=== PATIENT | female | born 1930 | race Caucasian/White ===

== ENCOUNTER → 2018-07-28 | Outpatient (CLI) | payer MEDICARE | LOC: WOUNDCARE 09:14 | PROVIDERS: ATTEND Surgery | DX: I70.242 Atherosclerosis of native arteries of left leg with ulceration of calf (principal); I87.332 Chronic venous hypertension (idiopathic) with ulcer and inflammation of left lower extremity; L97.222 Non-pressure chronic ulcer of left calf with fat layer exposed; I70.243 Atherosclerosis of native arteries of left leg with ulceration of ankle; L97.322 Non-pressure chronic ulcer of left ankle with fat layer exposed; I89.0 Lymphedema, not elsewhere classified | CPT/HCPCS: 99204 ==

== ENCOUNTER → 2018-07-28 | Outpatient (CLI) | payer MEDICARE ==
[2018-07-28 11:20] LABS: BASOPHILS % (AUTO) 0 % (0-10); EOSINOPHILS # (AUTO) 0.1 10^3/uL (0.0-0.3); EOSINOPHILS % (AUTO) 2 % (0-10); HEMATOCRIT 42 % (35-52); HEMOGLOBIN 13.4 G/DL (11.5-16.0); LYMPHOCYTES % (AUTO) 29 % (12-44); MEAN CORPUSCULAR HEMOGLOBIN 29 PG (25-34); MEAN CORPUSCULAR HGB CONC 32 G/DL (32-36); MEAN CORPUSCULAR VOLUME 92 FL (80-99); MEAN PLATELET VOLUME 9.5 FL (7.4-10.4); MONOCYTES # (AUTO) 0.6 X 10^3 (0.0-1.0); MONOCYTES % (AUTO) 9 % (0-12); NEUTROPHILS # (AUTO) 4.2 X 10^3 (1.8-7.8); NEUTROPHILS % (AUTO) 60 % (42-75); PLATELET COUNT 288 10^3/uL (130-400); RED CELL DISTRIBUTION WIDTH 13.7 % (10.0-14.5)
[2018-07-28 11:37] LABS: ALANINE AMINOTRANSFERASE 17 U/L (0-55); ALBUMIN 3.9 GM/DL (3.2-4.5); ALKALINE PHOSPHATASE 68 U/L (40-136); BILIRUBIN,TOTAL 0.7 MG/DL (0.1-1.0); BUN/CREATININE RATIO 19; CALCIUM 9.9 MG/DL (8.5-10.1); CARBON DIOXIDE 26 MMOL/L (21-32); CHLORIDE 107 MMOL/L (98-107); CREATININE SERUM 0.83 MG/DL (0.60-1.30); GFR ESTIMATED > 60; GLUCOSE 94 MG/DL (70-105); SODIUM 142 MMOL/L (135-145); TOTAL PROTEIN 7.5 GM/DL (6.4-8.2)
== END ==
LOC: LAB 11:06
PROVIDERS: ATTEND Surgery
DX: I70.242 Atherosclerosis of native arteries of left leg with ulceration of calf (principal); L97.222 Non-pressure chronic ulcer of left calf with fat layer exposed
CPT/HCPCS: 36415; 80053; 85025

== ENCOUNTER → 2018-08-01 | Outpatient (CLI) | payer MEDICARE | LOC: WOUNDCARE 14:09 | PROVIDERS: ATTEND Surgery | DX: L97.222 Non-pressure chronic ulcer of left calf with fat layer exposed (principal); L97.322 Non-pressure chronic ulcer of left ankle with fat layer exposed; I70.242 Atherosclerosis of native arteries of left leg with ulceration of calf; I70.243 Atherosclerosis of native arteries of left leg with ulceration of ankle; I87.332 Chronic venous hypertension (idiopathic) with ulcer and inflammation of left lower extremity; I87.321 Chronic venous hypertension (idiopathic) with inflammation of right lower extremity; I89.0 Lymphedema, not elsewhere classified | CPT/HCPCS: 11042; 87070; 87077; 87205 ==

== ENCOUNTER → 2018-08-11 | Outpatient (CLI) | payer MEDICARE | LOC: WOUNDCARE 10:04 | PROVIDERS: ATTEND Surgery | DX: L97.222 Non-pressure chronic ulcer of left calf with fat layer exposed (principal); I70.242 Atherosclerosis of native arteries of left leg with ulceration of calf; I87.332 Chronic venous hypertension (idiopathic) with ulcer and inflammation of left lower extremity; I87.321 Chronic venous hypertension (idiopathic) with inflammation of right lower extremity; I89.0 Lymphedema, not elsewhere classified | CPT/HCPCS: 11042 ==

== ENCOUNTER → 2018-08-18 | Outpatient (CLI) | payer MEDICARE | LOC: WOUNDCARE 10:01 | PROVIDERS: ATTEND Surgery | DX: L97.222 Non-pressure chronic ulcer of left calf with fat layer exposed (principal); I70.242 Atherosclerosis of native arteries of left leg with ulceration of calf; I87.332 Chronic venous hypertension (idiopathic) with ulcer and inflammation of left lower extremity; I87.321 Chronic venous hypertension (idiopathic) with inflammation of right lower extremity; I89.0 Lymphedema, not elsewhere classified | CPT/HCPCS: 11042 ==

== ENCOUNTER → 2018-08-25 | Outpatient (CLI) | payer MEDICARE | LOC: WOUNDCARE 09:53 | PROVIDERS: ATTEND Surgery | DX: L97.222 Non-pressure chronic ulcer of left calf with fat layer exposed (principal); I87.332 Chronic venous hypertension (idiopathic) with ulcer and inflammation of left lower extremity; I87.321 Chronic venous hypertension (idiopathic) with inflammation of right lower extremity; I89.0 Lymphedema, not elsewhere classified; I70.242 Atherosclerosis of native arteries of left leg with ulceration of calf | CPT/HCPCS: 11042 ==

== ENCOUNTER → 2018-09-01 | Outpatient (CLI) | payer MEDICARE | LOC: WOUNDCARE 09:57 | PROVIDERS: ATTEND Surgery | DX: L97.222 Non-pressure chronic ulcer of left calf with fat layer exposed (principal); I87.332 Chronic venous hypertension (idiopathic) with ulcer and inflammation of left lower extremity; I87.321 Chronic venous hypertension (idiopathic) with inflammation of right lower extremity; I89.0 Lymphedema, not elsewhere classified; I70.242 Atherosclerosis of native arteries of left leg with ulceration of calf | CPT/HCPCS: 99212 ==

== ENCOUNTER 2019-07-02 11:03 | Inpatient (IN) | payer MEDICARE ==
[~2019-07-02] VITALS: Ht 152.4 cm; Wt 90.1 kg
[2019-07-02] MEDS ORDERED: FLEET ENEMA ADULT 1 EA BTL PR PRN (12:15)
[2019-07-02] MEDS ORDERED: LACTULOSE SYRUP 10GM/15ML (ENULOSE) 30ML UDC PO PRN (12:15)
[2019-07-02] MEDS ORDERED: LOPERAMIDE 2 MG (IMODIUM) TABLET PO PRN (12:15)
[2019-07-02] MEDS ORDERED: BISACODYL 10 MG SUPP (DULCOLAX) PR PRN (12:15)
[2019-07-02] MEDS ORDERED: ALPRAZolam 0.25 MG (XANAX) TAB PO PRN (12:15)
[2019-07-02] MEDS ORDERED: diphenhydrAMINE 25 MG TAB (BENADRYL) PO PRN (12:15)
[2019-07-02] MEDS ORDERED: guaiFENesin/CODEINE (ROBITUSSIN AC) 10ML UDC PO PRN (12:15)
[2019-07-02] MEDS ORDERED: CALCIUM CARBONATE 500 MG (TUMS) TAB.CHEW PO PRN (12:15)
[2019-07-02] MEDS ORDERED: ONDANSETRON 4 MG (ZOFRAN) ORAL DISSOLVE TAB PO PRN (12:15)
[2019-07-02] MEDS ORDERED: DOCUSATE SODIUM 100 MG (COLACE) CAP PO PRN (12:15)
[2019-07-02] MEDS ORDERED: ACETAMINOPHEN 500 MG TAB (TYLENOL) PO PRN (12:15)
[2019-07-02] MEDS ORDERED: MELATONIN 3 MG TABLET PO PRN (12:15)
--- NOTE | 2019-07-02 13:36 | Physical Therapy Evaluation ---
PT Evaluation-General Medical Diagnosis Admission Date 07/02/2019 Medical Diagnosis: sepsis Onset Date: Jul 02, 2019 Therapy Diagnosis Therapy Diagnosis: abnormal gait/weakness Precautions Precautions/Isolations: Standard Precautions Referral Physician: Sonido Reason for Referral: Evaluation/Treatment Medical History Pertinent Medical History: CAD, HTN Additional Medical History CHF [facility]TI and mycoplasma. Transferred to this unit for continued medical management and skilled therapy services. Reviewed History: Yes Social History Home: Single Level Current Living Status: Alone Entry Into Home: Stairs With Railing PT Steps Into Home: 5 Prior Prior Level of Function SCALE: Activities may be completed with or without assistive devices. 7-Xystexchzs-fvenjcs completes the activity by him/herself with no assistance from a helper. 5-Set-up or Clean-up Assistance-helper sets up or cleans up; patient completes activity. [place] assists only prior to or following the activity. 4-Supervision or Touching Assistance-helper provides verbal cues and/or touching/steadying and/or contact guard assistance as patient completes activity. Assistance may be provided throughout the activity or intermittently. 3-Partial/Moderate Assistance-helper does LESS THAN HALF the effort. [place] lifts, holds or supports trunk or limbs, but provides less than half the effort. 2-Substantial/Maximal Assistance-helper does MORE THAN HALF the effort. [place] lifts or holds trunk or limbs and provides more than half the effort. 5-Ftehllvzy-ttsiox does ALL the effort. Patient does none of the effort to complete the activity. Or, the assistance of 2 or more helpers is required for the patient to complete the activity. If activity was not attempted, code reason: 7-Patient Refused. 9-Not Applicable-not attempted and the patient did not perform the activity before the current illness, exacerbation or injury. 10-Not Attempted due to Environmental Limitations-(lack of equipment, weather restraints, etc.). 88-Not Attempted due to Medical Conditions or Safety Concerns. Bed Mobility: 6 Transfers (B,C,W/C): 6 Gait: 6 Stairs: 5 Indoor Mobility (Ambulation): Independent Stairs: Independent Prior Devices Use: Walker (4WW) Pt lives alone and able to care for herself. ABle to walk distances to perform grocery shopping. PT Evaluation-Current Subjective Agrees to PT. Reports she is anxious to do what she is supposed to do to get better. Pain Numeric Pain Scale: 0-No Pain Location: No Pain Reported Pt/Family Goals Return home alone as before. Objective Patient Orientation: Person, Place, Time, Situation ROM/Strength ROM Lower Extremities WFL Strength Lower Extremities B LE strength is grossly 4/5 throughout Integumentary/Posture Integumentary refer to nursing notes. Bowel Incontinence: Yes Bladder Incontinence: Yes Posture rounded shoulders and forward head; forward flexed in standing. Neuromuscular (Tone, Coordination, Reflexes) tone is WNL; coordination intact; reflexes intact Sensory Vision: Functional Hearing: Functional Sensation Right Upper Extremit: Intact Sensation Right Lower Extremit: Intact Sensation Left Lower Extremity: Intact Transfers Roll Left to Right (QC): 3 (min assist to initiate and use of bedrail) Sit to Lying (QC): 2 (assist with both legs to get into bed. ) Lying to Sitting/Side of Bed(Q: 3 (min assist with cues for safety and sequencing.) Sit to Stand (QC): 2 (max assist to come to a stand with cues for hand placement and sequencing ) Chair/Mtb-tv-Ezopb Xfer(QC): 3 (min assist for balance. ) Toilet Transfer: 2 (mod assist and use of grab bar. ) Car Transfer (QC): 3 (min assist to get in/out and cues for sequencing) Gait Does the Patient Walk?: Yes Mode of Locomotion: Walk Anticipated Mode of Locomotion: Walk Walk 10 feet (QC): 3 (min assist for balance and safety) Walk 50 ft with 2 Turns(QC): 3 (min assist for balance and safety) Walk 150 ft (QC): 88 Walking 10ft/uneven surface-QC: 3 (min assist for balance) Gait Assistive Device: FWW Comments/Gait Description longstanding foot drop right foot; uses an AFO; decreased step length and velocity. Wheelchair Training Does the Pt Use a Wheelchair?: No Stairs 1 Step (curb) (QC): 3 (min assist to step up) 4 Steps (QC): 88 12 Steps (QC): 88 Walking Assistive Device: Walker Balance Sitting Static: Fair Sitting Dynamic: Fair Standing Static: Fair Standing Dynamic: Fair Picking up an Object (QC): 88 Treatment Co treat with OT [id number]: skill of 2 clinicians indicated due to the complexity of the patient and need for skill of OT and PT together to complete task. Pt performed bathing, dressing, toileting (2 times) and self care tasks: OT addressed use of UE and completing task as PT addressed mutliple sit to stand transfers with cues for sequencing and hand placement as well safety cues and assist to complete transfers; PT provided assist for functional balance and safety in standing as she performed self care as well as with transitional movements; pt sat EOB for part of sponge bath and PT provided cues fo trunk control and stability. Pt transferred from bed, chair, wc and toilet throughout treatment. Static and dynamic standing activities performed as well with min assist for balance. Pt in recliner with needs met post treatment. After pt stood at sink to brush her teeth and upon sitting down to rest, her oxygen sats were found to be 83%; recovered to above 90% within 1 minute with cues for deep breathing. Oxygen at 2 l/min in situ throughout treatment. Pt did become SOA with activity that required much reaching and bending; able to recover with cues for breathing technique and rest. Assessment/Needs Post acute hospital stay due to sepsis and presents with decreased functional strength and balance as well as decreased functional activity tolerance. She will benefit from skilled PT to address these deficits to allow her to return home alone at a mod indep level of mobility. She improved with transfer abiltiy and sequencing as the treatment progressed. Pt is motivated and has good family support. Rehab Potential: Good PT Short Term Goals Short Term Goals Time Frame: Jul 09, 2019 Sit to lyin Lying to sitting on side of be: 4 Sit to stand: 4 Walk 150 feet: 4 PT Long-Term Goals Computer Network Support Specialist Goals PT Long-Term Goals Time Frame: Jul 17, 2019 Roll Left & Right (QC): 6 Sit to Lying (QC): 6 Lying-Sitting on Side/Bed(QC): 6 Sit to Stand (QC): 6 Chair/Uhr-pj-Yiqly Xfer(QC): 6 Toilet Transfer (QC): 6 Car Transfer (QC): 5 Does the Patient Walk: Yes Walk 10 feet (QC): 6 Walk 50ft with 2 Turns (QC): 6 Walk 150 ft (QC): 6 Walking 10ft on Uneven Surface: 5 1 Step (curb) (QC): 5 4 Steps (QC): 4 12 Steps (QC): 9 Picking up an Object (QC): 4 Does the Pt use WC or Scooter?: No PT Plan Problem List Problem List: Activity Tolerance, Functional Strength, Safety, Balance, Gait, Transfer, Bed Mobility Treatment/Plan Treatment Plan: Continue Plan of Care Treatment Plan: Bed Mobility, Education, Functional Activity Chrissy, Functional Strength, Group Therapy, Gait, Safety, Therapeutic Exercise, Transfers Treatment Duration: Jul 17, 2019 Frequency: Modified Program (IRF) Estimated Hrs Per Day: 1 hour per day (to 1.5 hrs/day) Patient and/or Family Agrees t: Yes Safety Risks/Education Patient Education: Transfer Techniques, Safety Issues Teaching Recipient: Patient Teaching Methods: Demonstration, Discussion Response to Teaching: Reinforcement Needed Time/GCodes Time In: 1400 Time Out: 1410 Total Billed Treatment Time: 10 (1744-1650 co treat with OT) Total Billed Treatment visit x 2 EVM 10 FA 45 NM 25 FLORENCIO HAMM PT Jul 02, 2019 13:36
--- NOTE | 2019-07-02 14:00 | NUR ---
Yanet Chencho admitted to room 229-1, with an admitting diagnosis of Pneumonia, on 07/02/19 from [facility] via private vehicle, accompanied by family.YANET DIXON introduced to surroundings, call light, bed controls, phone, TV, temperature control, lights, meal times, smoking policy, visitor policy, side rail policy, bathrooms and showers. Patient Rights given to patient in the handbook.YANET DIXON verbalizes understanding that [facility] is not responsible for the loss or damage to any personal effects or valuables that are kept in the patients possession during their hospitalization. The following Patient Care Plans were discussed with the patient and family: Discharge Planning, Impaired mobility, and Pneumonia. YANET DIXON verbalizes understanding of Interdisciplinary Patient Education.
[2019-07-02] MEDS ORDERED: ASPI81TA16 PO (15:25)
[2019-07-02] MEDS ORDERED: CALC-694 PO (15:25)
[2019-07-02] MEDS ORDERED: LOSA100T57 PO (15:28)
[2019-07-02] MEDS ORDERED: TIMO5DRO31 OU (15:28)
[2019-07-02] MEDS ORDERED: OXYB5TAB3 PO (15:28)
[2019-07-02] MEDS ORDERED: FURO-124 PO (15:28)
[2019-07-02] MEDS ORDERED: LATA2.5D5 OU (15:28)
[2019-07-02] MEDS ORDERED: MULT1TAB63 PO (15:28)
[2019-07-02] MEDS ORDERED: POTA10TA PO (15:28)
--- NOTE | 2019-07-02 15:29 | NUR ---
ENTERED [facility] REC USING THE DISCHARGE INSTRUCTIONS FROM [facility]. AFTER I SPEAK WITH THE PT I WILL UPDATE THE [facility] REC AND NOTE NEEDED Addendum: 07/03/19 at 1516 by RANDY CHENEY [facility] POKE WITH THE PT, WENT THRU [facility] MED HISTORY ,CALLED [facility] MAIL ORDER AND CALLED HER EYE DR TO COMPLETE THE MED REC. THE DISCHARGE ORDER FROM [facility] ARE TO START: FUROSEMIDE 40MG 1 DAILY POTASSIUM 10 MEQ: 1 DAILY PER DISCHARGE SHE IS TO STOP: BYSTOLIC 5MG 1 DAILY TIMOLOL: THIS WAS ON THE DISCHARGE TO CONTINUE USE AND THE PT SAID SHE DOES USE THIS EYE DROP. HOWEVER WHEN I CHECKED WITH [facility] THEY HAD NOT FILLED THIS MEDICATION FOR AT LEAST 6 MONTHS. I THEM REACHED OUT TO DR. REA MCDANIEL TO SEE IF SAMPLES COULD EXPLAIN THIS LAPSE IN FILLING- UNFORTUNATELY THEY DID NOT HAVE SAMPLES OF THIS MEDICATION. DUE TO THIS I HAVE LEFT THIS OFF THE FINAL MED REC ESTRACE 0.5MG TAKE 1 TAB TWICE WEEKLY (MON AND FRI) HOWEVER THIS IS NOT LISTED ON THE DISCHARGE ORDERS. I DID INCLUDE THIS IN THE FINAL MED REC AND I HAVE REACHED OUT TO [facility] FOR CLARIFICATION. OXYBUTYNIN ER: DISCHARGE SAYS TO TAKE OXYBUTYNIN ER 5MG- AND THE NEXT LINE SAYS 10MG /ORAL/ONCE A DAY. SHE PREVIOUSLY WAS ON THE 10MG BUT I DID PUT ON THE FIRST MED REC THE OXYBUTYNIN ER 5MG NOT REALIZING THE DISCREPANCY. I HAVE PUT IN A CALL THE [facility] TO FIND OUT WHICH STRENGTH THEY WANTED TO DISCHARGE HER WITH AND WHEN I HEAR FROM THEM I WILL UPDATE MED REC/NOTES NEEDED. SPOKE WITH TOM AT [facility]- THEY ONLY USE THE 5MG BC 10MG IS NOT STOCKED THERE BUT SHE WAS GETTING 2 TABS TO EQUAL HER DOSE. I ALSO ASKED ABOUT THE ESTRACE THAT WAS NOT LISTED ON THE DISCHARGE- SHE DID NOT SEE ANY NOTE OF IT ON HER ADMIT FORMS. I WILL KEEP IT ON THE MED REC AT THIS TIME
--- NOTE | 2019-07-02 15:34 | Occupational Therapy Eval ---
OT Evaluation-General/PLF Medical Diagnosis Admission Date Jul 02, 2019 at 13:58 Medical Diagnosis: sepsis Onset Date: Jul 02, 2019 Therapy Diagnosis Therapy Diagnosis: Decreased ADL status Precautions Precautions/Isolations: Standard Precautions Weight Bear Status Weight Bearing Restriction: Weight Bearing/Tolerated Referral Physician: Sonido Referral Reason: Activity Tolerance, Self Care, Evaluation/Treatment, Strengthening/ROM Medical History Pertinent Medical History: CAD, HTN Additional Medical History see nursing. Current History Pt prepared for ulnar nerve decompression surgery, blood work was drawn with UTI/ sepsis dx. Pt hospitalized in [place] and transports to [facility] on 07/02/19 Reviewed History: Yes Social History Home: Single Level Current Living Status: Alone Entry Into Home: Stairs With Railing Steps Into Home: 5 ADL-Prior Level of Function SCALE: Activities may be completed with or without assistive devices. 2-Iaoxwxfbuh-qoywrad completes the activity by him/herself with no assistance from a helper. 5-Set-up or Clean-up Assistance-helper sets up or cleans up; patient completes activity. [place] assists only prior to or following the activity. 4-Supervision or Touching Assistance-helper provides verbal cues and/or touching/steadying and/or contact guard assistance as patient completes activity. Assistance may be provided throughout the activity or intermittently. 3-Partial/Moderate Assistance-helper does LESS THAN HALF the effort. [place] lifts, holds or supports trunk or limbs, but provides less than half the effort. 2-Substantial/Maximal Assistance-helper does MORE THAN HALF the effort. [place] lifts or holds trunk or limbs and provides more than half the effort. 5-Wsivadjut-ninyuq does ALL the effort. Patient does none of the effort to complete the activity. Or, the assistance of 2 or more helpers is required for the patient to complete the activity. If activity was not attempted, code reason: 7-Patient Refused. 9-Not Applicable-not attempted and the patient did not perform the activity before the current illness, exacerbation or injury. 10-Not Attempted due to Environmental Limitations-(lack of equipment, weather restraints, etc.). 88-Not Attempted due to Medical Conditions or Safety Concerns. ADL PLOF Comments Pt was Mod I with FWW within the house with ADLs, requires assist with driving for IADLs. Self Care: Independent Functional Cognition: Independent DME/Equipment: Grab Bars, Tall Toilet, Tub/Shower DME/Equipment Comments Pt has tub/ shower, grab bars, high rise toilet, FWW, [address] Self: No OT Current Status Subjective Pt transported by private vehicle from [place], pt seen at front of [facility]. Pt denies pain, 02 attached, daughter and daughter in law present start and end of session. OT individual eval: 1, EVM (10) OT/ PT co-treat: 1, ADL 5 (70) OT/ PT co-treat rendered due to pt's decreased strength and requirement for assist in transfers, pt's decreased balance, pt's requirement for 02 sat monitoring which would benefit from the utilization of 2 skilled therapists with in session to maintain safety. Mental Status/Objective Patient Orientation: Person, Place, Situation, Normal For Age Attachments: Oxygen (2L) Current Glasses/Contacts: Yes Hearing Aids: No Dentures/Partials: Yes (partial) Hand Dominance: Right Upper Extremity ROM WFL BUE Upper Extremity Coordination WFL BUE Upper Extremity Sensation numbness/ tingling of ulnar distribution of L hand. Upper Extremity Strength Decreased bilaterally Edema: BLE pitting ADL-Treatment Eating (QC): 6 Oral Hygiene (QC): 4 (SBA with walker at sink.) Shower/Bathe Self (QC): 4 (CGA, min A bottom thoroughness.) Upper Body Dressing (QC): 4 (min A bra hooking s/u shirt.cues for 02 disuse during changing.) Lower Body Dressing (QC): 2 (Max A threading BLE and CGA during stance to ladle puller hips.) On/Off Footwear (QC): 4 (SBA, pt brings feet over knees to don) Toileting Hygiene (QC): 4 (CGA- min A for thoroughness.) Other Treatments Pt completes transfer from car to w/c with min A and use of 2WW. pt brought to ARU floor. Pt educated on OT role/ plans of day/ goals of therapy/ ARU expectations. Pt and family educated. OT evaluation completed: [id number]. (10) Pt agreeable to OT/ PT co-treat from [id number] (70). Pt completes bed mob with CGA, unable to maintain supine position due to pain in back. Pt states she sleeps in recliner with legs elevated above heart. Pt states edema decreases within night and if need to utilize AFO on RLE pt must don within the morning. Pt completes bed mob, utilizes toilet with mod A for transfers (pt has some incontinence), and agrees to sponge bath. Completes 1/2 bath EOB (decreased energy, SOB noted, pt leans to R side during exhaustion). Pt transfers to chair with CGA to complete bath. Pt completes, while leaning down for pant donning pt's face red, SOB noted. Pt completes toileting once more (pt states was given IV lasix at [place] for swelling), min A transfer with commode placed on toilet. Pt stands for ~5 min at sink to complete oral hygiene (SBA-CGA), requires rest break in chair post-hygiene. Pt returns to recliner chair, 83% 02 noted with 2L 02 cannula on. Pt requires cues for nose breathing. Pt and family's questions answered, all needs met, pt educated superintendent container terminal light, call light in reach. Pt left in recliner chair with family present. Education OT Patient Education: Correct positioning, Energy conservation, Instructions to caregiver, Modified ADL techniques, Purpose of tx/functional activities, Rehab process, Transfer techniques Teaching Recipient: Patient Teaching Methods: Demonstration, Discussion Response to Teaching: Verbalize Understanding, Return Demonstration, Reinforcement Needed OT Short Term Goals Short Term Goals Upper body dressin Lower body dressin OT Senior Game Designer Goals Senior Game Designer Goals Time Frame: Jul 16, 2019 Eating (QC): 6 Oral Hygiene (QC): 6 Toileting Hygiene (QC): 6 Shower/Bathe Self (QC): 6 Upper Body Dressing (QC): 6 Lower Body Dressing (QC): 6 On/Off Footwear (QC): 6 Additional Goals: 1-Demonstrate ADL Tasks, 2-Verbalize Understanding, 3- ImproveStrength/Chrissy 1=Demonstrate adherence to instructed precautions during ADL tasks. 2=Patient will verbalize/demonstrate understanding of assistive devices/modifications for ADL. 3=Patient will improve strength/tolerance for activity to enable patient to perform ADL's. OT Education/Plan Problem List/Assessment Assessment: Decreased Activ Tolerance, Decreased UE Strength, Dependent Transfers, Edema, Impaired Funct Balance, Impaired I ADL's, Impaired Self-Care Skills Discharge Recommendations Plan/Recommendations: Continue POC Treatment Plan/Plan of Care Treatment,Training & Education: Yes Patient would benefit from OT for education, treatment and training to promote independence in ADL's, mobility, safety and/or upper extremity function for A DL's. Plan of Care: ADL Retraining, Caregiver Training, Concurrent Therapy, Functional Mobility, Group Exercise/Act as Ind, UE Funct Exercise/Act Treatment Duration: Jul 16, 2019 Frequency: At least 5 of 7 days/Wk (IRF) Estimated Hrs Per Day: 1.5 hours per day Agreement: Yes Rehab Potential: Good Time/GCodes Start Time: 14:10 Stop Time: 15:30 Total Time Billed (hr/min): 80 Billed Treatment Time OT individual eval: 1, EVM (10) OT/ PT co-treat: 1, ADL 5 (70) OT/ PT co-treat rendered due to pt's decreased strength and requirement for assist in transfers, pt's decreased balance, pt's requirement for 02 sat monitoring which would benefit from the utilization of 2 skilled therapists within session to maintain safety. KODI LEO OTR Jul 02, 2019 15:34
--- NOTE | 2019-07-02 15:41 | Pulmonary Consultation ---
History of Present Illness History of Present Illness Date Seen by Provider: Jul 02, 2019 Time Seen by Provider: 15:31 Date of Admission Allergies and Home Medications Allergies Coded Allergies: Sulfa (Sulfonamide Antibiotics) (Verified Allergy, Intermediate, Rash, 07/02/19) acetaminophen (Verified Allergy, Intermediate, Rash, 07/02/19) Home Medications Aspirin 81 Mg Tablet.dr, 81 MG PO DAILY, (Reported) Calcium Carbonate/Vitamin D3 1 Each Tablet, 2 EACH PO DAILY, (Reported) Estradiol 0.5 Mg Tablet, 0.5 MG PO MON,FRI, (Reported) TAKES 1 TAB TWICE WEEKLY (MON AND FRI) Latanoprost 2.5 Ml Drops, 1 DROP OU HS, (Reported) Losartan Potassium 100 Mg Tablet, 100 MG PO DAILY, (Reported) Multivits,Ca,Minerals/Iron/FA 1 Each Tablet, 1 EACH PO DAILY, (Reported) Nebivolol HCl 5 Mg Tablet, 5 MG PO DAILY, (Reported) Oxybutynin Chloride 10 Mg Tab.er.24, 10 MG PO DAILY, (Reported) Past Mpyrpui-Tvqzsk-Qiwdgd Hx Patient Social History Recent Foreign Travel: No Sepsis Event Evaluation Height, Weight, BMI Height: '" Weight: lbs. oz. kg; BMI Method: Exam Exam Height & Weight Height: '" Weight: lbs. oz. 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
[2019-07-02 16:00] VITALS: BP 152/83
[2019-07-02 17:14] VITALS: BP 159/77
--- NOTE | 2019-07-02 18:08 | Consultation-Cardiology ---
HPI-Cardiology Cardiology Consultation Date of Consultation 07/02/19 Date of Admission Time Seen by Provider: 18:05 Indication: shortness of breath HPI 88 years old lady with history of hypertension, hospitalized in [facility] for pneumonia, received antibiotics, has been having increasing dyspnea on exertion which has been worsening for the past 3 years. Denied any chest pain. No palpitation, reported history of bradycardia. Home Medications & Allergies Allergies: Coded Allergies: Sulfa (Sulfonamide Antibiotics) (Verified Allergy, Intermediate, Rash, 07/02/19) acetaminophen (Verified Allergy, Intermediate, Rash, 07/02/19) Home Medication List Reviewed: Yes IWU-Xhbutu-Zisazt Hx Patient Social History Alcohol Use: Denies Use Recreational Drug Use: No Recent Foreign Travel: No Recent Infectious Disease Expo: No Recent Hopitalizations: Yes ([facility]-Pneumonia, Sepsis, UTI) Physical Abuse Screen: No Sexual Abuse: No Immunizations Up To Date Date of Influenza Vaccine: Feb 20, 2019 Past Medical History Discussed below Family Medical History Family History: Alcoholism G8 BROTHER G8 BROTHER Asthma G8 BROTHER G8 BROTHER G8 BROTHER G8 BROTHER Cardiovascular disease 19 MOTHER G8 BROTHER G8 SISTER Cataracts 19 MOTHER G8 BROTHER G8 BROTHER G8 BROTHER G8 BROTHER Completed stroke 19 MOTHER G8 BROTHER Congenital disease Congenital heart disease G8 BROTHER Coronary thrombosis 19 MOTHER Deafness or hearing loss 19 FATHER G8 BROTHER Dementia Diabetes mellitus 19 MOTHER G8 BROTHER G8 BROTHER Drug abuse G8 BROTHER Glaucoma 19 FATHER G8 BROTHER G8 BROTHER Hypercholesterolemia 19 MOTHER G8 BROTHER G8 BROTHER Hypertension 19 MOTHER G8 BROTHER G8 BROTHER Myocardial infarction 19 MOTHER G8 BROTHER G8 BROTHER Thyroid disease G8 BROTHER Review of Systems-General Review of Systems Constitutional: no symptoms reported, see HPI, malaise, weakness EENTM: see HPI, no symptoms reported Respiratory: see HPI; No cough; dyspnea on exertion; No hemoptysis, No orthopnea, No phlegm; short of breath; No stridor, No wheezing, No other Cardiovascular: see HPI; No chest pain, No edema, No Hx of Intervention, No palpitations, No syncope, No vascular heart diseas, No other Gastrointestinal: no symptoms reported, see HPI Genitourinary: no symptoms reported, see HPI Musculoskeletal: no symptoms reported, see HPI Skin: no symptoms reported, see HPI Psychiatric/Neurological: No Symptoms Reported, See HPI Physical Exam Physical Exam Vital Signs Vital Signs - First Documented 07/02/19 17:14 Temp 37.3 Pulse 51 Resp 16 B/P (MAP) 159/77 Pulse Ox 96 O2 Delivery Nasal Cannula O2 Flow Rate 2.00 Capillary Refill : Height, Weight, BMI Height: '" Weight: lbs. oz. kg; 38.75 BMI Method: General Appearance: No Apparent Distress, WD/WN Eyes: Bilateral Eye Normal Inspection, Bilateral Eye PERRL, Bilateral Eye EOMI HEENT: PERRL/EOMI, TMs Normal, Normal ENT Inspection, Pharynx Normal, Moist Mucous Membranes Neck: Full Range of Motion, Normal Inspection, Non Tender, Supple, Carotid Bruit Respiratory: Chest Non Tender, Normal Breath Sounds, No Accessory Muscle Use, No Respiratory Distress Cardiovascular: Regular Rate, Rhythm, No Edema, No Gallop, No JVD, No Murmur, Normal Peripheral Pulses Gastrointestinal: Normal Bowel Sounds, No Organomegaly, No Pulsatile Mass, Non Tender, Soft Back: Normal Inspection, No CVA Tenderness, No Vertebral Tenderness Extremity: Normal Capillary Refill, Normal Inspection, Normal Range of Motion, Non Tender, No Calf Tenderness, No Pedal Edema Neurologic/Psychiatric: Alert, Oriented x3, No Motor/Sensory Deficits, Normal Mood/Affect Skin: Normal Color, Warm/Dry Lymphatic: No Adenopathy A/P-Cardiology Admission Diagnosis Shortness of breath Pulmonary hypertension Hypertension Sinus bradycardia Assessment/Plan Shortness of breath, worsening recently, has been having deterioration over the past few years. Probably underlying COPD, seen by Dr. Montiel, I agree with pulmonary function test. Pulmonary hypertension, severe, probably due to COPD, underlying pulmonary embol ism cannot be excluded. Will evaluate venous Doppler Bradycardia, history of sinus bradycardia in the past, currently asymptomatic. Continue to monitor heart rate and blood pressure Hypertension, maintained on losartan as an outpatient, restart medication monitor blood pressure Recent pneumonia, managed by primary care physician Debility and shortness of breath, starting physical therapy Clinical Quality Measures DVT/VTE Risk/Contraindication: Risk Factor Score Per Nursin RFS Level Per Nursing on Admit: 4+=Very High CRUZ DANIELS MD Jul 02, 2019 18:08
[2019-07-02] MEDS: DOCUSATE SODIUM 100 MG (COLACE) CAP PO SCH (19:57)
[2019-07-02] MEDS: ENOXAPARIN 40 MG/0.4 ML (LOVENOX) SYR SC SCH ×2 (19:57→20:07)
[2019-07-02] MEDS: SENNA W/DOCUSATE (SENOKOT S) TABLET PO SCH (19:58)
[2019-07-02] MEDS: polyethylene glycoL POWDER 17 GM (MIRALAX) PACK PO SCH (19:58)
--- NOTE | 2019-07-02 20:00 | NUR ---
pt refused lovenox, pt states med was given in am at [facility]
[2019-07-02] MEDS: LATANOPROST 0.005% (XALATAN) OPHTH SOLN 2.5 ML OU SCH (20:13)
[2019-07-02] MEDS: TIMOLOL MALEATE 0.5% 5 ML (TIMOPTIC) BTL OU SCH (20:14)
[2019-07-02] MEDS ORDERED: NON-FORMULARY MEDICATION 1 EA EA (Timolol Maleate 1 DROP) OU SCH (21:00)
[2019-07-03] MEDS: MULTIVIT W/MINERALS TAB (THERAGRAN M) PO SCH (06:02)
[2019-07-03] MEDS: KCL 10 MEQ TAB (MICRO K) PO SCH (06:02)
[2019-07-03 06:53] LABS: BASOPHILS % (AUTO) 1 % (0-10); EOSINOPHILS # (AUTO) 0.3 10^3/uL (0.0-0.3); EOSINOPHILS % (AUTO) 4 % (0-10); HEMATOCRIT 41 % (35-52); HEMOGLOBIN 13.1 G/DL (11.5-16.0); LYMPHOCYTES # (AUTO) 1.2 X 10^3 (1.0-4.0); LYMPHOCYTES % (AUTO) 19 % (12-44); MEAN CORPUSCULAR HEMOGLOBIN 29 PG (25-34); MEAN CORPUSCULAR HGB CONC 32 G/DL (32-36); MEAN CORPUSCULAR VOLUME 91 FL (80-99); MEAN PLATELET VOLUME 10.2 FL (7.4-10.4); MONOCYTES % (AUTO) 15 % (0-12); NEUTROPHILS # (AUTO) 3.9 X 10^3 (1.8-7.8); NEUTROPHILS % (AUTO) 61 % (42-75); PLATELET COUNT 305 10^3/uL (130-400); RED CELL DISTRIBUTION WIDTH 13.5 % (10.0-14.5); WHITE BLOOD COUNT 6.3 10^3/uL (4.3-11.0)
[2019-07-03 07:17] LABS: ALANINE AMINOTRANSFERASE 318 U/L (0-55); ALBUMIN 3.7 GM/DL (3.2-4.5); ALKALINE PHOSPHATASE 209 U/L (40-136); BILIRUBIN,TOTAL 3.4 MG/DL (0.1-1.0); BUN/CREATININE RATIO 11; CALCIUM 9.5 MG/DL (8.5-10.1); CARBON DIOXIDE 24 MMOL/L (21-32); CHLORIDE 102 MMOL/L (98-107); CREATININE SERUM 0.74 MG/DL (0.60-1.30); GFR ESTIMATED > 60; GLUCOSE 91 MG/DL (70-105); POTASSIUM 4.1 MMOL/L (3.6-5.0); SODIUM 136 MMOL/L (135-145); TOTAL PROTEIN 7.4 GM/DL (6.4-8.2)
[2019-07-03] MEDS: CALCIUM CARB + VIT D 600 MG (CALCARB + D) TAB PO SCH (08:15)
[2019-07-03] MEDS: SENNA W/DOCUSATE (SENOKOT S) TABLET PO SCH ×2 (08:15→20:46)
[2019-07-03] MEDS: DOCUSATE SODIUM 100 MG (COLACE) CAP PO SCH ×2 (08:15→20:46)
[2019-07-03] MEDS: polyethylene glycoL POWDER 17 GM (MIRALAX) PACK PO SCH ×2 (08:15→20:45)
[2019-07-03] MEDS: TIMOLOL MALEATE 0.5% 5 ML (TIMOPTIC) BTL OU SCH ×2 (08:15→20:46)
[2019-07-03] MEDS: ASPIRIN E.C. 81 MG (ECOTRIN) TAB PO SCH (08:16)
[2019-07-03] MEDS: LOSARTAN 100 MG (COZAAR) TABLET PO SCH (08:16)
[2019-07-03] MEDS: FUROSEMIDE 40 MG (LASIX) TAB PO SCH (08:16)
--- NOTE | 2019-07-03 08:46 | Cardiology Progress Note ---
Subjective Date Seen by Provider: Jul 03, 2019 Time Seen by Provider: 08:25 Subjective/Events-last exam Patient sitting up in chair, feeling well, denies any chest pain or dyspnea. Review of Systems General: No Chills, No Night Sweats, No Fatigue, No Malaise, No Appetite, No Other HEENT: No Head Aches, No Visual Changes, No Eye Pain, No Ear Pain, No Dysphasia, No Sinus Congestion, No Post Nasal Drip, No Sore Throat, No Other Pulmonary: Dyspnea, Cough; No Pleuritic Chest Pain, No Other Cardiovascular: No: Chest Pain, Palpitations, Orthopnea, Paroxysmal Noc. Dyspnea, Edema, Lt Headedness, Other Objective-Cardiology Exam Last Set of Vital Signs Vital Signs 07/02/19 07/02/19 17:14 21:00 Temp 37.3 Pulse 51 Resp 16 B/P (MAP) 159/77 Pulse Ox 96 O2 Delivery Nasal Cannula O2 Flow Rate 2.00 Capillary Refill : Less Than 3 Seconds I&O Intake and Output 07/03/19 00:00 Intake Total 340 ml Balance 340 ml Intake Oral 340 ml # Voids 3 # Urine Diapers 2 Daily Weight Change No General: Alert, Oriented X3, Cooperative HEENT: Atraumatic, PERRLA Neck: Supple, No JVD, No Thyromegaly Lungs: Clear to Auscultation, Normal Air Movement Heart: Regular Rate, Normal S1, Normal S2, No Murmurs Abdomen: Normal Bowel Sounds, Soft, No Tenderness, No Hepatosplenomegaly, No Masses Extremities: No Clubbing, No Cyanosis, No Edema, Normal Pulses, No Tenderness/Swelling Skin: No Rashes, No Breakdown, No Significant Lesion Neuro: Normal Gait, Normal Speech, Strength at 5/5 X4 Ext, Normal Tone, Sensation Intact Psych/Mental Status: Mental Status NL, Mood NL Results Lab Laboratory Tests 07/03/19 06:00 07/03/19 06:15 A/P-Cardiology Admission Diagnosis Shortness of breath Pulmonary hypertension Hypertension Sinus bradycardia Assessment/Plan Shortness of breath, worsening recently, has been having deterioration over the past few years. Probably underlying COPD, seen by Dr. Montiel, continue to monitor. Pulmonary hypertension, severe, probably due to COPD, underlying pulmonary embolism cannot be excluded. Evaluate venous doppler Bradycardia, history of sinus bradycardia in the past, currently asymptomatic. Continue to monitor heart rate and blood pressure Hypertension, maintained on losartan as an outpatient,continue to monitor. Recent pneumonia, managed by primary care physician Debility and shortness of breath, starting physical therapy Patient was seen and evaluated with Jillian, examination performed, management plan was discussed, agree with the current scribed note, I made few changes to the note using Italic font Patient is still having some cough and shortness of breath Starting on physical therapy Blood pressure is elevated, restarted losartan and monitor blood pressure Clinical Quality Measures DVT/VTE Risk/Contraindication: Risk Factor Score Per Nursin RFS Level Per Nursing on Admit: 4+=Very High JILLIAN BEST Jul 03, 2019 08:46 CRUZ DANIELS MD Jul 03, 2019 11:38
--- NOTE | 2019-07-03 08:56 | PM&R Post Admission Assessment ---
PM&R HP Date of Visit: Jul 03, 2019 Time of Visit: 09:00 History of Present Illness CC: Severe debility with PHTN new diagnosis HPI: This is an 88yoWF clinic patient of Dr Ferreira who presents after DC from acute care at [facility] for Mycoplasma PNA and UTI fully treated with abx but new onset O2 dependency who is in need of aggressive PT/OT in order to return home successfully. She lives alone but her family is very involved. Patient agreed for Pulmo and Cards consultations. She slept well last night and is participating with therapy at 15/7 schedule due to hypoxia on exertion. BM+ and denies any pain. I restarted all of her home meds and added Singulair. PLOF was independent but walked slowly due to dyspnea on exertion. Past Gkjfxlo-Bnczmv-Uoarfn Hx Past Med/Social Hx: Reviewed Nursing Past Med/Soc Hx, Reviewed and Corrections made Patient Social History Marrital Status: Employed/Student: retired ([employer]) Alcohol Use: Denies Use Recreational Drug Use: No Smoking Status: Former Smoker Physical Abuse Screen: No Sexual Abuse: No Recent Foreign Travel: No Contact w/other who traveled: No Recent Hopitalizations: Yes ([facility]-Pneumonia, Sepsis, UTI) Recent Infectious Disease Expo: No Immunizations Up To Date Pediatric: Yes Date of Influenza Vaccine: Feb 20, 2019 Seasonal Allergies Seasonal Allergies: No Past Medical History Respiratory: COPD, Pneumonia Currently Using CPAP: No Currently Using BIPAP: No Cardiac: High Cholesterol, Hypertension Neurological: 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 Sexually Transmitted Disease: No HIV/AIDS: No Female Reproductive Disorders: Denies Genitourinary: Bladder Infection Musculoskeletal: Arthritis Are Your Blood Sugars Over 250: No HEENT: Glaucoma Loss of Vision: Bilateral Hearing Impairment: Denies Cancer: Skin Did You Recieve Any Treatments: Yes What Type of Treatment Did You: Surgical Intervention History of Blood Disorders: No Adverse Reaction to Blood Duke: No Family History Alcoholism G8 BROTHER G8 BROTHER Asthma G8 BROTHER G8 BROTHER G8 BROTHER G8 BROTHER Cardiovascular disease 19 MOTHER G8 BROTHER G8 SISTER Cataracts 19 MOTHER G8 BROTHER G8 BROTHER G8 BROTHER G8 BROTHER Completed stroke 19 MOTHER G8 BROTHER Congenital disease Congenital heart disease G8 BROTHER Coronary thrombosis 19 MOTHER Deafness or hearing loss 19 FATHER G8 BROTHER Dementia Diabetes mellitus 19 MOTHER G8 BROTHER G8 BROTHER Drug abuse G8 BROTHER Glaucoma 19 FATHER G8 BROTHER G8 BROTHER Hypercholesterolemia 19 MOTHER G8 BROTHER G8 BROTHER Hypertension 19 MOTHER G8 BROTHER G8 BROTHER Myocardial infarction 19 MOTHER G8 BROTHER G8 BROTHER Thyroid disease G8 BROTHER Prior Level of Function Bed Mobility: 6 Transfers: 6 Gait: 6 Stairs: 5 Indoor Mobility (Ambulation): Independent Stairs: Independent Prior Devices Use: Walker (4WW) Self Care: Independent Functional Cognition: Independent Drive Self: No Current Level of Fuctioning Roll Left to Right: 3 (min assist to initiate and use of bedrail) Sit to Lyin (assist with both legs to get into bed. ) Lying to Sitting/Side of Bed: 3 (min assist with cues for safety and sequencing.) Sit to Stand: 2 (max assist to come to a stand with cues for hand placement and sequencing ) Chair/Mwp-dw-Siikv Xfer: 3 (min assist for balance. ) Car Transfer: 3 (min assist to get in/out and cues for sequencing) Does the Patient Walk: Yes Mode of Locomotion: Walk Anticipated Mode of Locomotion: Walk Walk 10 feet: 3 (min assist for balance and safety) Walk 50 ft with 2 Turns: 3 (min assist for balance and safety) Walk 150 ft: 88 Walking 10ft on uneven surface: 3 (min assist for balance) Gait Assistive Device: FWW Does the Pt Use a Wheelchair: No 1 Step (curb): 3 (min assist to step up) 4 Steps: 88 Walking Assistive Device: Walker 12 Steps: 88 Picking up an Object: 88 Eatin Oral Hygiene: 4 (SBA with walker at sink.) Shower/Bathe Self: 4 (CGA, min A bottom thoroughness.) Upper Body Dressin (min A bra hooking s/u shirt.cues for 02 disuse during changing.) Lower Body Dressin (Max A threading BLE and CGA during stance to tube puller hips.) On/Off Footwear: 4 (SBA, pt brings feet over knees to don) Toileting Hygiene: 4 (CGA- min A for thoroughness.) PM&R Allergy/Meds/Data Review Allergies Coded Allergies: Sulfa (Sulfonamide Antibiotics) (Verified Allergy, Intermediate, Rash, 07/02/19) acetaminophen (Verified Allergy, Intermediate, Rash, 07/02/19) Home Medications Scheduled Aspirin (Low Dose Aspirin EC), 81 MG PO DAILY, (Reported) Calcium Carbonate/Vitamin D3 (Calcium 600 + Vit D Caplet), 1 EACH PO DAILY, (Reported) Furosemide (Lasix), 40 MG PO DAILY, (Reported) Latanoprost (Latanoprost), 1 DROP OU DAILY, (Reported) Losartan Potassium (Losartan Potassium), 100 MG PO DAILY, (Reported) Multivits,Ca,Minerals/Iron/FA (Thera-M Tablet), 1 EACH PO DAILY, (Reported) Oxybutynin Chloride (Oxybutynin Chloride ER), 5 MG PO DAILY, (Reported) Potassium Chloride (K-Tab ER), 10 MEQ PO DAILY, (Reported) Timolol Maleate (Timolol Maleate), 1 DROP OU BID, (Reported) Current Medications Current Medications Reviewed Laboratory Data Laboratory Tests 07/03/19 06:00: Sodium Level 136, Potassium Level 4.1, Chloride Level 102, Carbon Dioxide Level 24, Anion Gap 10, Blood Urea Nitrogen 8, Creatinine 0.74, Estimat Glomerular Filtration Rate > 60, BUN/Creatinine Ratio 11, Glucose Level 91, Calcium Level 9.5, Corrected Calcium 9.7, Total Bilirubin 3.4H, Aspartate Amino Transf (AST/SGOT) 433H, Alanine Aminotransferase (ALT/SGPT) 318H, Alkaline Phosphatase 209H, Total Protein 7.4, Albumin 3.7 07/03/19 06:15: White Blood Count 6.3, Red Blood Count 4.54, Hemoglobin 13.1, Hematocrit 41, Mean Corpuscular Volume 91, Mean Corpuscular Hemoglobin 29, Mean Corpuscular Hemoglobin Concent 32, Red Cell Distribution Width 13.5, Platelet Count 305, Mean Platelet Volume 10.2, Neutrophils (%) (Auto) 61, Lymphocytes (%) (Auto) 19, Monocytes (%) (Auto) 15H, Eosinophils (%) (Auto) 4, Basophils (%) (Auto) 1, Neutrophils # (Auto) 3.9, Lymphocytes # (Auto) 1.2, Monocytes # (Auto) 1.0, Eosinophils # (Auto) 0.3, Basophils # (Auto) 0.0 Review of Systems Constitutional: see HPI, dizziness, weakness Respiratory: dyspnea on exertion, short of breath, wheezing Cardiovascular: edema Musculoskeletal: back pain, joint pain Psychiatric/Neurological: Depressed Physical Exam Physical Exam Vital Signs Vital Signs - First Documented 07/02/19 07/02/19 14:00 16:00 Temp 36.7 Pulse 77 Resp 18 B/P (MAP) 152/83 (106) Pulse Ox 93 O2 Delivery Nasal Cannula O2 Flow Rate 2.00 Capillary Refill : Less Than 3 Seconds Height, Weight, BMI Height: '" Weight: lbs. oz. kg; 38.75 BMI Method: General Appearance: No Apparent Distress, WD/WN, Chronically ill, Obese Eyes: Bilateral Eye Normal Inspection, Bilateral Eye PERRL, Bilateral Eye EOMI HEENT: PERRL/EOMI, Normal ENT Inspection, Pharynx Normal, Moist Mucous Membranes Neck: Full Range of Motion, Normal Inspection, Non Tender, Supple, Carotid Bruit Respiratory: Chest Non Tender, Normal Breath Sounds, No Accessory Muscle Use, No Respiratory Distress, Decreased Breath Sounds Cardiovascular: Regular Rate, Rhythm, No Gallop, No JVD, No Murmur, Normal Peripheral Pulses Gastrointestinal: Normal Bowel Sounds, No Organomegaly, No Pulsatile Mass, Non Tender, Soft Back: Normal Inspection, No CVA Tenderness, No Vertebral Tenderness Extremity: Normal Capillary Refill, Normal Inspection, Normal Range of Motion, Non Tender, No Calf Tenderness, Pedal Edema Neurologic/Psychiatric: Alert, Oriented x3, No Motor/Sensory Deficits, Normal Mood/Affect, carton inspector II-XII Norm as Tested, Motor Weakness (generalized, ambulates slowly) Skin: Normal Color, Warm/Dry Lymphatic: No Adenopathy PM&R Medical Assessment & Plan REHAB/MEDICAL ASSESSMENT AND PLAN: REHAB IMPAIRMENT GROUP: Debility ETIOLOGIC DIAGNOSIS: New O2 dependency with new PHTN dx and COPD and severe debility The comorbidities that impact the patients function and/or functional outcome by: recent Mycoplasma PNA and UTI, new O2, poor stamina, advanced age REHAB PLAN: The patient is being admitted to our comprehensive inpatient rehabilitation facility and can tolerate the intensity of service consisting of at least: 180 minutes of therapy a day, 5 out of 7 days a week Rehab treatment will consist of: PT and OT will work with her at a decreased intensity due to severe hypoxia on exertion from new dx of PHTN and COPD and new O2 dependency The patient/family has a good understanding of our discharge process and will benefit from an interdisciplinary inpatient rehabilitation program. The patient has potential to make improvement and is in need of at least two of the following multidisciplinary therapies including but not limited to physical, occupational, speech, and prosthetics and orthotics. Additionally the patient will need services from respiratory, nutritional services, wound care, psychology, etc. (Customize this to each patient). Given the patients complex condition and risk of further medical complications, rehabilitation services cannot be safely or effectively provided at a lower level of care such as a halfway facility. BARRIERS TO DISCHARGE: Lives alone and new O2 dependency ESTIMATED LOS: 7 days DISPOSITION: Home RELEVANT CHANGES SINCE PREADMISSION SCREENING: I have compared the patients medical and functional status at the time of the preadmission screening and there are: no changes PROGNOSIS: Good REHABILITATION GOALS: 1. PT and OT will work with her at a decreased intensity due to severe hypoxia on exertion from new dx of PHTN and COPD and new O2 dependency in order to return to [facility] and return home All the above goals were reviewed with the patient and he/she is in agreement. By signing this document, I acknowledge that I have personally performed a full physical examination on this patient within 24 hours of admission to this inpatient rehabilitation facility and have determined the patient to be able to tolerate the above course of treatment at an intensive level for a reasonable period of time. I will be completing a detailed individualized Plan of Care for this patient by day #4 of the patients stay based upon the Preadmission Screen, the Post-Admission Evaluation, and the therapy evaluations. Admission Dx/Comorbidities: (1) Debility ICD Codes: R53.81 - Other malaise (2) COPD (chronic obstructive pulmonary disease) ICD Codes: J44.9 - Chronic obstructive pulmonary disease, unspecified (3) Oxygen dependent ICD Codes: Z99.81 - Dependence on supplemental oxygen (4) Hypoxemia ICD Codes: R09.02 - Hypoxemia (5) Edema ICD Codes: R60.9 - Edema, unspecified (6) Hypertension ICD Codes: I10 - Essential (primary) hypertension (7) H/O mycoplasma pneumonia ICD Codes: Z87.01 - Personal history of pneumonia (recurrent) (8) Hx: UTI (urinary tract infection) ICD Codes: Z87.440 - Personal history of urinary (tract) infections (9) Foot drop, right ICD Codes: M21.371 - Foot drop, right foot (10) Glaucoma ICD Codes: H40.9 - Unspecified glaucoma (11) Overactive bladder ICD Codes: N32.81 - Overactive bladder RIKA BERUMEN DO Jul 03, 2019 08:56
--- NOTE | 2019-07-03 08:56 | Diagnostic Imaging Report ---
PROCEDURE: US Venous Lower Ext Jeremy. TECHNIQUE: Multiple Real-time grayscale images were obtained over the lower extremities in various projections bilaterally. Additional duplex Doppler and color Doppler images were also obtained. INDICATION: Shortness of air. FINDINGS: The femoropopliteal deep venous system bilaterally is widely patent. No deep or superficial thrombus. No mass or fluid collection. IMPRESSION: Normal negative bilateral lower extremity venous Doppler and ultrasound. Dictated by: Dictated on workstation # [id number]
[2019-07-03] MEDS ORDERED: OXYBUTYNIN ER 5 MG (DITROPAN XL) TAB NON-FORMULARY PO SCH (09:00)
[2019-07-03] MEDS ORDERED: LATANOPROST 0.005% (XALATAN) OPHTH SOLN 2.5 ML OU SCH (09:00)
--- NOTE | 2019-07-03 09:05 | Occupational Ther Daily Note ---
OT Current Status-Daily Note Subjective Pt seen in recliner chair, no pain noted. Pt agreeable to OT tx session. Mental Status/Objective Patient Orientation: Normal For Age Attachments: Oxygen (2L) ADL-Treatment Therapy Code Descriptions/Definitions Functional [place] Measure: 0=Not Assessed/NA 4=Minimal Assistance 1=Total Assistance 5=Supervision or Setup 2=Maximal Assistance 6=Modified [place] 3=Moderate Assistance 7=Complete IndependenceSCALE: Activities may be completed with or without assistive devices. 6-Xwwfrabpkp-yjuryos completes the activity by him/herself with no assistance from a helper. 5-Set-up or Clean-up Assistance-helper sets up or cleans up; patient completes activity. [place] assists only prior to or following the activity. 4-Supervision or Touching Assistance-helper provides verbal cues and/or touching/steadying and/or contact guard assistance as patient completes activity. Assistance may be provided throughout the activity or intermittently. 3-Partial/Moderate Assistance-helper does LESS THAN HALF the effort. [place] lift s, holds or supports trunk or limbs, but provides less than half the effort. 2-Substantial/Maximal Assistance-helper does MORE THAN HALF the effort. [place] lifts or holds trunk or limbs and provides more than half the effort. 8-Bmeuwulsh-jrwdem does ALL the effort. Patient does none of the effort to complete the activity. Or, the assistance of 2 or more helpers is required for the patient to complete the activity. If activity was not attempted, code reason: 7-Patient Refused. 9-Not Applicable-not attempted and the patient did not perform the activity before the current illness, exacerbation or injury. 10-Not Attempted due to Environmental Limitations-(lack of equipment, weather restraints, etc.). 88-Not Attempted due to Medical Conditions or Safety Concerns. Eating (QC): 6 Oral Hygiene (QC): 4 (SUP) Shower/Bathe Self (QC): 7 Upper Body Dressing (QC): 5 Lower Body Dressing (QC): 3 (min A for undergarments, pt educated on use of open developer operator for donning, pt return demonstrates. SBA in stance.) Toileting Hygiene (QC): 4 (SUP) Toilet Transfer (QC): 4 (SBA) Other Treatment Pt denies pain, denies shower. Pt agrees to dressing tasks, completes in recliner chair with increased time and cues for SOB/ breathing techniques. Pt ambulates back and forth from bathroom to recliner chair with SBA/ cues for resting, chair brought in to bathroom for rest break post-oral hygiene with 02 reading 98%. Pt ambulates to kitchen area, completes coffee task with good safety awareness and ambulates ~100 feet without break with walker. Utilizes break for ~2 min until returns to recliner. All needs met, call light in reach. Education OT Patient Education: Modified ADL techniques, Rehab process, Transfer techn iques, Use of adapted equipment Teaching Recipient: Patient Teaching Methods: Demonstration, Discussion Response to Teaching: Verbalize Understanding, Return Demonstration OT Short Term Goals Short Term Goals Upper body dressin Lower body dressin OT Alf Goals Faro Dealer Goals Time Frame: Jul 16, 2019 Eating (QC): 6 Oral Hygiene (QC): 6 Toileting Hygiene (QC): 6 Shower/Bathe Self (QC): 6 Upper Body Dressing (QC): 6 Lower Body Dressing (QC): 6 On/Off Footwear (QC): 6 Additional Goals: 1-Demonstrate ADL Tasks, 2-Verbalize Understanding, 3- ImproveStrength/Chrissy 1=Demonstrate adherence to instructed precautions during ADL tasks. 2=Patient will verbalize/demonstrate understanding of assistive devices/modifications for ADL. 3=Patient will improve strength/tolerance for activity to enable patient to perform ADL's. OT Education/Plan Problem List/Assessment Assessment: Decreased Activ Tolerance, Decreased UE Strength, Dependent Transfers, Edema, Impaired Funct Balance, Impaired I ADL's, Impaired Self-Care Skills Discharge Recommendations Plan/Recommendations: Continue POC Treatment Plan/Plan of Care Treatment,Training & Education: Yes Patient would benefit from OT for education, treatment and training to promote independence in ADL's, mobility, safety and/or upper extremity function for ADL's. Plan of Care: ADL Retraining, Caregiver Training, Concurrent Therapy, Functional Mobility, Group Exercise/Act as Ind, UE Funct Exercise/Act Treatment Duration: Jul 16, 2019 Frequency: At least 5 of 7 days/Wk (IRF) Estimated Hrs Per Day: 1.5 hours per day Agreement: Yes Rehab Potential: Good Time/GCodes Start Time: 08:00 Stop Time: 09:00 Total Time Billed (hr/min): 60 Billed Treatment Time [address]: 1, ADL 3, FA (60) KODI LEO OTR Jul 03, 2019 09:04
--- NOTE | 2019-07-03 10:49 | Physical Therapy Daily Note ---
PT Daily Note-Current Subjective Agreeable to PT. Reports she slept well last night. No complaints. Pain Numeric Pain Scale: 0-No Pain Location: No Pain Reported Mental Status Patient Orientation: Person, Place, Time, Situation Transfers SCALE: Activities may be completed with or without assistive devices. 9-Frnqfahksu-dsyicms completes the activity by him/herself with no assistance from a helper. 5-Set-up or Clean-up Assistance-helper sets up or cleans up; patient completes activity. [place] assists only prior to or following the activity. 4-Supervision or Touching Assistance-helper provides verbal cues and/or touching/steadying and/or contact guard assistance as patient completes activity. Assistance may be provided throughout the activity or intermittently. 3-Partial/Moderate Assistance-helper does LESS THAN HALF the effort. [place] lifts, holds or supports trunk or limbs, but provides less than half the effort. 2-Substantial/Maximal Assistance-helper does MORE THAN HALF the effort. [place] lifts or holds trunk or limbs and provides more than half the effort. 5-Kccabaccm-avzngm does ALL the effort. Patient does none of the effort to complete the activity. Or, the assistance of 2 or more helpers is required for the patient to complete the activity. If activity was not attempted, code reason: 7-Patient Refused. 9-Not Applicable-not attempted and the patient did not perform the activity before the current illness, exacerbation or injury. 10-Not Attempted due to Environmental Limitations-(lack of equipment, weather restraints, etc.). 88-Not Attempted due to Medical Conditions or Safety Concerns. Sit to Stand (QC): 3 (min asssit at times and CGA other times; skilled cues for safety and sequencing with hand placement. ) Chair/Uuj-dl-Bxujx Xfer(QC): 4 Toilet Transfer (QC): 4 (raised toilet seat) Gait Training Does the Patient Walk?: Yes Distance: 100 ft; 100 ft; 50 ft; 150 ft Gait Assistive Device: Cane Large Base Quad slow gait with reliance on FWW. CGA for safety. Skilled cues for posture and step length. Wheelchair Training Does the Pt Use a Wheelchair?: No Stair Training Stair Training: Handrails/: 2 handrails 4 Steps (QC): 3 (min assist for balance and safety. ) Stairs: Pattern: Step to unsteady on steps with min assist for safety; slow on the stairs. Exercises Seated Therapy Exercises: Sit to stand (2 x 5 reps), Long arc quads, Hip flexion, Hamstring Curls Seated Reps: 10 (LE functional strengthening to promote transfers and gait. ) Standing: Marching (15) Treatments Gait and functional strength training. Assessment Current Status: Good Progress Pt tolerated treatment well and increased her gait distance and ability to transfer. PT Short Term Goals Short Term Goals Time Frame: Jul 09, 2019 Sit to lyin Lying to sitting on side of be: 4 Sit to stand: 4 Walk 150 feet: 4 PT In Home Nanny Goals In Home Nanny Goals PT In Home Nanny Goals Time Frame: Jul 17, 2019 Roll Left & Right (QC): 6 Sit to Lying (QC): 6 Lying-Sitting on Side/Bed(QC): 6 Sit to Stand (QC): 6 Chair/Dsl-kw-Kweaq Xfer(QC): 6 Toilet Transfer (QC): 6 Car Transfer (QC): 5 Does the Patient Walk: Yes Walk 10 feet (QC): 6 Walk 50ft with 2 Turns (QC): 6 Walk 150 ft (QC): 6 Walking 10ft on Uneven Surface: 5 1 Step (curb) (QC): 5 4 Steps (QC): 4 12 Steps (QC): 9 Picking up an Object (QC): 4 Does the Pt use WC or Scooter?: No PT Plan Problem List Problem List: Activity Tolerance, Functional Strength, Safety, Balance, Gait, Transfer Treatment/Plan Treatment Plan: Continue Plan of Care Treatment Plan: Bed Mobility, Education, Functional Activity Chrissy, Functional Strength, Group Therapy, Gait, Safety, Therapeutic Exercise, Transfers Treatment Duration: Jul 17, 2019 Frequency: Modified Program (IRF) Estimated Hrs Per Day: 1 hour per day (to 1.5 hrs/day) Patient and/or Family Agrees t: Yes Safety Risks/Education Patient Education: Transfer Techniques, Safety Issues Teaching Recipient: Patient Teaching Methods: Demonstration, Discussion Response to Teaching: Reinforcement Needed Time/GCodes Time In: 910 Time Out: 1005 Total Billed Treatment Time: 65 Total Billed Treatment visit GT 30 EX 35 FLORENCIO HAMM PT Jul 03, 2019 10:48
--- NOTE | 2019-07-03 12:19 | Physical Therapy Daily Note ---
PT Daily Note-Current Subjective Agrees to PT. Transfers SCALE: Activities may be completed with or without assistive devices. 0-Vgosbbldkn-gjwrfjc completes the activity by him/herself with no assistance from a helper. 5-Set-up or Clean-up Assistance-helper sets up or cleans up; patient completes activity. [place] assists only prior to or following the activity. 4-Supervision or Touching Assistance-helper provides verbal cues and/or to uching/steadying and/or contact guard assistance as patient completes activity. Assistance may be provided throughout the activity or intermittently. 3-Partial/Moderate Assistance-helper does LESS THAN HALF the effort. [place] lifts, holds or supports trunk or limbs, but provides less than half the effort. 2-Substantial/Maximal Assistance-helper does MORE THAN HALF the effort. [place] lifts or holds trunk or limbs and provides more than half the effort. 6-Undoksqct-pxxtmr does ALL the effort. Patient does none of the effort to complete the activity. Or, the assistance of 2 or more helpers is required for the patient to complete the activity. If activity was not attempted, code reason: 7-Patient Refused. 9-Not Applicable-not attempted and the patient did not perform the activity before the current illness, exacerbation or injury. 10-Not Attempted due to Environmental Limitations-(lack of equipment, weather restraints, etc.). 88-Not Attempted due to Medical Conditions or Safety Concerns. Treatments Sit to stand x multiple attempts with FWW with SBA. Pt ambulated 150 ft x 4 reps with FWW with SB-CGA. Toileted x 2 with pt performing pericare and clothing management with CGA. Pt stood at sink to wash her hands both times with SB-CGA for static balacne. Pt up in recliner post treatment with needs met. Assessment Current Status: Good Progress Slight SOA noted with activity. Oxygen in situ throughout treatment and her sats with activity were at 90-91%. PT Short Term Goals Short Term Goals Time Frame: Jul 09, 2019 Sit to lyin Lying to sitting on side of be: 4 Sit to stand: 4 Walk 150 feet: 4 PT Diesel Engine Ii Pipe Fitter Goals Diesel Engine Ii Pipe Fitter Goals PT Shelter Goals Time Frame: Jul 17, 2019 Roll Left & Right (QC): 6 Sit to Lying (QC): 6 Lying-Sitting on Side/Bed(QC): 6 Sit to Stand (QC): 6 Chair/Uwv-sd-Pppbm Xfer(QC): 6 Toilet Transfer (QC): 6 Car Transfer (QC): 5 Does the Patient Walk: Yes Walk 10 feet (QC): 6 Walk 50ft with 2 Turns (QC): 6 Walk 150 ft (QC): 6 Walking 10ft on Uneven Surface: 5 1 Step (curb) (QC): 5 4 Steps (QC): 4 12 Steps (QC): 9 Picking up an Object (QC): 4 Does the Pt use WC or Scooter?: No PT Plan Problem List Problem List: Activity Tolerance, Functional Strength, Safety Treatment/Plan Treatment Plan: Continue Plan of Care Treatment Plan: Bed Mobility, Education, Functional Activity Chrissy, Functional Strength, Group Therapy, Gait, Safety, Therapeutic Exercise, Transfers Treatment Duration: Jul 17, 2019 Frequency: Modified Program (IRF) Estimated Hrs Per Day: 1 hour per day (to 1.5 hrs/day) Patient and/or Family Agrees t: Yes Time/GCodes Time In: 1115 Time Out: 1145 Total Billed Treatment Time: 30 Total Billed Treatment visit GT 30 FLORENCIO HAMM PT Jul 03, 2019 12:19
--- NOTE | 2019-07-03 12:34 | NUR ---
CM/SS ADMISSION Patient was admitted to ARU diagnosis Sepsis, secondary to UTI and Mycoplasma. Additional challenges include decreased functional strength, balance, and activity tolerance. Prior to hospitalization, she resided home alone and she intends to return to this status upon discharge. Patient pronounces her last name Chencho as Cam. Patient no longer drives due to vision deficits but her children take her for all her errands and shopping. DME: 4WW, shower chair, BSC, grab bars in bath. No home O2 at present. PCP: Dr. Baldo Ferreira DO, [place] INSURED: Medicare, [email or web address] [facility] Supplement ADVANCED DIRECTIVE: Yes, current. CONTACTS: Patient identifies 3 children: Juventino Chencho [place], [place] [phone] Fang Goldman [place], [place] [phone] Hesham Chung) Chen[place], [place] [phone] Patient understands the purpose of the weekly team conference as it relates to discharge planning and that her length of stay will depend on her overall progress.
[2019-07-03] MEDS ORDERED: NEBI5TAB8 PO (13:40)
[2019-07-03] MEDS ORDERED: OXYB10TA2 PO (13:40)
--- NOTE | 2019-07-03 14:12 | ST Cognitive Linguistic Eval ---
Speech Evaluation-General Medical Diagnosis sepsis Onset Date: Jul 02, 2019 Therapy Diagnosis Therapy Diagnosis: Cognitive-communication Referral Referring Physician: Dr. Head Medical History Pertinent Medical History: CAD, HTN Reviewed History: Yes Social History Current Living Status: Alone Speech PLF-Current Status Prior Level of Function Patient lived alone and was independent for much of her daily needs. She does have children near by for support as needed. Subjective The patient was pleasant and cooperative with the cognitive assessment. Language Eval: Auditory Comprehends Simple Yes/No Ques: Functional Indent/Objects [place]: Functional Ident/Pics in [place]: Functional Follows 1-Step Commands: Functional Follows Complex Directions: Functional Follows General Conversations: Functional Language Eval: Verbal Language Completes Spontaneous Greeting: Functional Produces Auto, Serial Info: Functional Imitates Simple Words/Phrases: Functional Word Finding: Functional Requests Basic Needs: Functional States Basic Personal Info: Functional Expresses Complex Ideas: Functional Objective Cognitive Domain Attention: WNL Memory: Mild Problem Solving: Functional Executive Functions: WNL Visuospatial Skills: WNL Composite Severity Rating: WNL Clock Drawing Severity Rating: WNL Objective Formal/Standardized Tests [facility] Mental Status ([facility]) Results , within normal limits of function Oral Motor/Speech Production Within Normal Limits Impression The patient is a very pleasant 88 year old woman who was admitted to the ARU for strengthening s/p sepsis. The patient completed the UMS with a normal range of function score obtained. The patient does not require further ST services at this time. Speech Patient Assess Expression of Ideas/Wants: Expression (4) Understanding Verbal Content: Understands (4) Brief Interview-Mental Status: Yes Repetition of Three Words: Three (3) Temporal Orientation: Year: Correct (3) Temporal Orientation: Month: Accurate within 5 days(2) Temporal Orientation: Day: Correct (1) Recall : Wear to say "Sock": Yes,after cueing (1) Recall : Color: Yes, no cue required (2) Recall : Bed: Yes,after cueing (1) Memory/Recall Ability: Current season, That he or she is in a hsp/hsp unit Speech-Plan Patient/Family Goals Patient/Family Goals: The patient plans on returning home with family support upon rehab discharge. Treatment Plan Speech Therapy Treatment Plan: Discontinue ST Frequency: 1 time per week Estimated Hrs Per Day: .25 hour per day Rehab Potential: Good Barriers to Learning: None identified Pt/Family Agrees to Plan: Yes Safety Risks/Education Teaching Recipient: Patient Teaching Methods: Discussion Response to Teaching: Verbalize Understanding Education Topics Provided: Safety within her room and communication of wants/needs Time Speech Therapy Time In: 10:30 Speech Therapy Time Out: 10:45 Total Billed Time: 15 Billed Treatment Time 1, CLEOPATRANDANGELINE Pires Jul 03, 2019 14:12
[2019-07-03] MEDS ORDERED: ESTR0.5T PO (14:21)
--- NOTE | 2019-07-03 14:39 | Pulmonary Consultation ---
History of Present Illness History of Present Illness Date Seen by Provider: Jul 03, 2019 Time Seen by Provider: 14:36 Date of Admission Reason for Visit: shortness of breath Allergies and Home Medications Allergies Coded Allergies: Sulfa (Sulfonamide Antibiotics) (Verified Allergy, Intermediate, Rash, 07/02/19) acetaminophen (Verified Allergy, Intermediate, Rash, 07/02/19) Home Medications Aspirin 81 Mg Tablet.dr, 81 MG PO DAILY, (Reported) Calcium Carbonate/Vitamin D3 1 Each Tablet, 2 EACH PO DAILY, (Reported) Estradiol 0.5 Mg Tablet, 0.5 MG PO MON,FRI, (Reported) TAKES 1 TAB TWICE WEEKLY (MON AND TUE) Latanoprost 2.5 Ml Drops, 1 DROP OU HS, (Reported) Losartan Potassium 100 Mg Tablet, 100 MG PO DAILY, (Reported) Multivits,Ca,Minerals/Iron/FA 1 Each Tablet, 1 EACH PO DAILY, (Reported) Nebivolol HCl 5 Mg Tablet, 5 MG PO DAILY, (Reported) Oxybutynin Chloride 10 Mg Tab.er.24, 10 MG PO DAILY, (Reported) Past Nceqbjn-Etthjk-Lmdehe Hx Past Med/Social Hx: Reviewed Nursing Past Med/Soc Hx, Reviewed and Corrections made Patient Social History Alcohol Use: Denies Use Recreational Drug Use: No Smoking Status: Former Smoker Recent Foreign Travel: No Contact w/Someone Who Travel: No Recent Infectious Disease Expo: No Recent Hopitalizations: Yes ([facility]-Pneumonia, Sepsis, UTI) Immunizations Up To Date PED Vaccines UTD: Yes Date of Influenza Vaccine: Feb 20, 2019 Seasonal Allergies Seasonal Allergies: No Past Medical History Surgeries: Yes Respiratory: Yes Pneumonia Currently Using CPAP: No Currently Using BIPAP: No Cardiac: Yes High Cholesterol, Hypertension Neurological: No Neuropathy : No Female Reproductive Disorders: Denies Sexually Transmitted Disease: No HIV/AIDS: No Genitourinary: Yes (Nerve damage-SX in 1972) Bladder Infection Gastrointestinal: No Musculoskeletal: No Arthritis Endocrine: No Are Your Blood Sugars Over 250: No HEENT: No Glaucoma Loss of Vision: Bilateral Hearing Impairment: Denies Cancer: Yes Skin Did You Recieve Any Treatments: Yes What Type of Treatment Did You: Surgical Intervention Psychosocial: No Integumentary: No Blood Disorders: No Adverse Reaction/Blood Tranf: No Family Medical History Alcoholism G8 BROTHER G8 BROTHER Asthma G8 BROTHER G8 BROTHER G8 BROTHER G8 BROTHER Cardiovascular disease 19 MOTHER G8 BROTHER G8 SISTER Cataracts 19 MOTHER G8 BROTHER G8 BROTHER G8 BROTHER G8 BROTHER Completed stroke 19 MOTHER G8 BROTHER Congenital disease Congenital heart disease G8 BROTHER Coronary thrombosis 19 MOTHER Deafness or hearing loss 19 FATHER G8 BROTHER Dementia Diabetes mellitus 19 MOTHER G8 BROTHER G8 BROTHER Drug abuse G8 BROTHER Glaucoma 19 FATHER G8 BROTHER G8 BROTHER Hypercholesterolemia 19 MOTHER G8 BROTHER G8 BROTHER Hypertension 19 MOTHER G8 BROTHER G8 BROTHER Myocardial infarction 19 MOTHER G8 BROTHER G8 BROTHER Thyroid disease G8 BROTHER Sepsis Event Evaluation Height, Weight, BMI Height: '" Weight: lbs. oz. kg; 38.75 BMI Method: Exam Exam Vital Signs Date Time Temp Pulse Resp B/P (MAP) Pulse Ox O2 Delivery O2 Flow Rate FiO2 07/03/19 09:00 Nasal Cannula 2.00 07/02/19 21:00 96 Nasal Cannula 2.00 07/02/19 17:14 37.3 51 16 159/77 96 Nasal Cannula 2.00 07/02/19 16:00 36.7 77 18 152/83 (106) 93 I & O 07/03/19 07:00 Intake Total 690 ml Balance 690 ml Height & Weight Height: '" Weight: lbs. oz. kg; 38.75 BMI Method: General Appearance: No Apparent Distress, WD/WN, Chronically ill, Obese HEENT: PERRL/EOMI, Normal ENT Inspection, Pharynx Normal, Moist Mucous Membranes Neck: Full Range of Motion, Normal Inspection, Non Tender, Supple, Carotid Bruit Respiratory: Chest Non Tender, Normal Breath Sounds, No Accessory Muscle Use, No Respiratory Distress, Decreased Breath Sounds Cardiovascular: Regular Rate, Rhythm, No Gallop, No JVD, No Murmur, Normal Peripheral Pulses Capillary Refill: Less Than 3 Seconds Extremity: Normal Capillary Refill, Normal Inspection, Normal Range of Motion, Non Tender, No Calf Tenderness, Pedal Edema Neurologic/Psychiatric: Alert, Oriented x3, No Motor/Sensory Deficits, Normal Mood/Affect, resource manager II-XII Norm as Tested, Motor Weakness (generalized, ambulates slowly) Skin: Normal Color, Warm/Dry Lymphatic: No Adenopathy Results Lab Laboratory Tests 2/11/20 06:00 07/03/19 06:15 Assessment/Plan Assessment/Plan Pulmonary HTN - per echo PA pressure is 70-75% -- probably group II and group III -Will do out pt PFT and PSG -Echo: -aortic valve sclerosis, with mild regurgitation -moderate tricuspid regurgitation -Mod enlargement of left atrium Pt denies current SOB Debility -PT/OT COPD -Oxygen -Nebulizer JEANNE ROMAN DO Jul 03, 2019 14:39
--- NOTE | 2019-07-03 14:41 | Diagnostic Imaging Report ---
INDICATION: Shortness of breath. FINDINGS: There is cardiomegaly. There is patchy right basilar infiltrate. There is no pleural effusion or pneumothorax. The mediastinum is unremarkable. IMPRESSION: Patchy right basilar infiltrate. Cardiomegaly. Dictated by: Dictated on workstation # [id number]
--- NOTE | 2019-07-03 14:56 | NUR ---
RD ASSESSMENT PMHx: COPD; HTN PT INTERACTION: Pt was awake and pleasant during nutrition assessment. Pt states current appetite is pretty good and has been for some time. Note PO intake of 50% x1meal, per chart review. Pt states following a regular diet at home and has no issues with chewing/swallowing food. Pt states no recent issues with n/v at this time. Pt states having some issues with constipation, and that her last BM was 07/03 and "not a large one." Note pt currently on bowel regimen of colace BID; senna BID; and miralax BID, per chart review. Pt states no recent wt changes. Note unable to determine recent wt hx, per chart review. ABNORMAL NUTRITION-RELATED LAB VALUES LOW: HIGH: bili 3.4; AST 433; ALT 318; alkphos 209 Est. kcal needs: 0693-3592 kcal | 15-18 kcal/kg Est. Pro needs: 70-88 g Pro | 0.8-1.0 g Pro/kg PES STATEMENT: Inadequate oral intake (NI-2.1) related to loss of appetite | constipation as evidenced by pt interview | PO intake 50% x1meal INTERVENTION: Continue with current diet order of Regular diet. Add Ensure Enlive to meals TID, for increased kcal intake. Provides 350 kcal and 13 g Pro per serving. Will continue to follow and reassess as pt needs and status change. MONITOR/EVALUATE: PO Intake; Plan of Care; Hydration Status; Weight Status; Lab Values Juan Carlos Sanon, MS, RD, LD
[2019-07-03] MEDS: RT-ALBUTEROL/IPRATROPIUM 3 ML (DUONEB) VIAL INH SCH ×2 (15:26→18:49)
[2019-07-03] MEDS: ENOXAPARIN 40 MG/0.4 ML (LOVENOX) SYR SC SCH (18:09)
[2019-07-03 18:33] VITALS: BP 148/77
[2019-07-03] MEDS: RT-ADVAIR HFA 115/21 MCG PER PUFF IH SCH (18:49)
[2019-07-03] MEDS: MONTELUKAST 10 MG (SINGULAIR) TAB PO SCH (20:45)
[2019-07-03] MEDS: LATANOPROST 0.005% (XALATAN) OPHTH SOLN 2.5 ML OU SCH (20:46)
[2019-07-03] MEDS: OXYBUTYNIN (DITROPAN) 5 MG TAB PO SCH (20:46)
[2019-07-04] MEDS: RT-ALBUTEROL/IPRATROPIUM 3 ML (DUONEB) VIAL INH SCH ×4 (02:15→19:20)
[2019-07-04 05:21] VITALS: BP 154/88
[2019-07-04] MEDS: MULTIVIT W/MINERALS TAB (THERAGRAN M) PO SCH (06:02)
[2019-07-04] MEDS: KCL 10 MEQ TAB (MICRO K) PO SCH (06:02)
[2019-07-04] MEDS: OXYBUTYNIN (DITROPAN) 5 MG TAB PO SCH ×2 (08:01→20:22)
[2019-07-04] MEDS: SENNA W/DOCUSATE (SENOKOT S) TABLET PO SCH ×2 (08:01→20:22)
[2019-07-04] MEDS: LOSARTAN 100 MG (COZAAR) TABLET PO SCH (08:01)
[2019-07-04] MEDS: FUROSEMIDE 40 MG (LASIX) TAB PO SCH (08:01)
[2019-07-04] MEDS: DOCUSATE SODIUM 100 MG (COLACE) CAP PO SCH ×2 (08:01→20:26)
[2019-07-04] MEDS: CALCIUM CARB + VIT D 600 MG (CALCARB + D) TAB PO SCH (08:02)
[2019-07-04] MEDS: ASPIRIN E.C. 81 MG (ECOTRIN) TAB PO SCH (08:02)
[2019-07-04] MEDS: TIMOLOL MALEATE 0.5% 5 ML (TIMOPTIC) BTL OU SCH ×2 (08:02→20:23)
[2019-07-04] MEDS: RT-ADVAIR HFA 115/21 MCG PER PUFF IH SCH ×2 (08:16→19:20)
[2019-07-04] MEDS: polyethylene glycoL POWDER 17 GM (MIRALAX) PACK PO SCH ×2 (09:00→20:26)
--- NOTE | 2019-07-04 09:32 | Occupational Ther Daily Note ---
OT Current Status-Daily Note Subjective Pt seen in recliner chair, agreeable to OT tx session with goals of showering/ ADLs. Pt states no pain. Pitting edema bilaterally. States slept well. Mental Status/Objective Patient Orientation: Normal For Age Attachments: Oxygen ADL-Treatment Therapy Code Descriptions/Definitions Functional [place] Measure: 0=Not Assessed/NA 4=Minimal Assistance 1=Total Assistance 5=Supervision or Setup 2=Maximal Assistance 6=Modified [place] 3=Moderate Assistance 7=Complete IndependenceSCALE: Activities may be completed with or without assistive devices. 1-Tfzcsnwxcg-uohebfs completes the activity by him/herself with no assistance from a helper. 5-Set-up or Clean-up Assistance-helper sets up or cleans up; patient completes activity. [place] assists only prior to or following the activity. 4-Supervision or Touching Assistance-helper provides verbal cues and/or touching/steadying and/or contact guard assistance as patient completes activity. Assistance may be provided throughout the activity or intermittently. 3-Partial/Moderate Assistance-helper does LESS THAN HALF the effort. [place] lifts, holds or supports trunk or limbs, but provides less than half the effort. 2-Substantial/Maximal Assistance-helper does MORE THAN HALF the effort. [place] lifts or holds trunk or limbs and provides more than half the effort. 3-Rsmkrigoz-echlsx does ALL the effort. Patient does none of the effort to complete the activity. Or, the assistance of 2 or more helpers is required for the patient to complete the activity. If activity was not attempted, code reason: 7-Patient Refused. 9-Not Applicable-not attempted and the patient did not perform the activity before the current illness, exacerbation or injury. 10-Not Attempted due to Environmental Limitations-(lack of equipment, weather restraints, etc.). 88-Not Attempted due to Medical Conditions or Safety Concerns. Eating (QC): 6 Oral Hygiene (QC): 4 (SBA in stance at sink.) Bathing Location: L Arm, R Arm, L Upper Leg, R Upper Leg, L Lower Leg (including foot), R Lower Leg (including foot), Chest, Abdomen, Buttocks, Perineal Area Shower/Bathe Self (QC): 4 (SBA with use of grab bars in stance. CGA during shower transfer.) Upper Body Dressing (QC): 6 Lower Body Dressing (QC): 4 (Cues for use of medical assistant float for undergarments and pants. Pt requires SBA during over hip movement.) On/Off Footwear: 2 (Pt required max A for socks on this date due to weakness. Pt states at home she is able to pull up with rail/ dresser to get enought assist to pull ankle over knee, pt not able to on this date.) Toileting Hygiene (QC): 4 (SBA) Toilet Transfer (QC): 4 (SBA) Other Treatment Pt stands ~3 min during morning prep, RT present and breathing tx administered while shower prepped. Pt completes showering on shower bench, SOB noted post shower. Pt takes rest break to regain breath, pt sits in chair next to shower to dress. Pt completes toileting/ oral hygiene with SBA and one rest break for breath. Pt returns to recliner chair, rest break administered to regain breath. Pt completes standing tolerance/ UB ex in stance: completes 10 reps bilaterally with 2# weight on each arm: shoulder flexion, shoulder abduction, bicep curls, and scaption. Pt requires one rest break during 15 min exercise. Pt returns to sit, positioned in chair with 3 pillows under legs to encourage edema return. Pt left in chair with call light in reach,all needs met. Education OT Patient Education: Correct positioning, Exercise program, Home exercise program, Modified ADL techniques, Use of adapted equipment Teaching Recipient: Patient Teaching Methods: Demonstration, Discussion Response to Teaching: Verbalize Understanding, Return Demonstration OT Short Term Goals Short Term Goals Upper body dressin Lower body dressin OT Prison Goals Teasel Setter Goals Time Frame: Jul 16, 2019 Eating (QC): 6 Oral Hygiene (QC): 6 Toileting Hygiene (QC): 6 Shower/Bathe Self (QC): 6 Upper Body Dressing (QC): 6 (met) Lower Body Dressing (QC): 6 On/Off Footwear (QC): 6 Additional Goals: 1-Demonstrate ADL Tasks, 2-Verbalize Understanding, 3- ImproveStrength/Chrissy 1=Demonstrate adherence to instructed precautions during ADL tasks. 2=Patient will verbalize/demonstrate understanding of assistive devices/modifications for ADL. 3=Patient will improve strength/tolerance for activity to enable patient to perform ADL's. OT Education/Plan Problem List/Assessment Assessment: Decreased Activ Tolerance Discharge Recommendations Plan/Recommendations: Continue POC Treatment Plan/Plan of Care Treatment,Training & Education: Yes Patient would benefit from OT for education, treatment and training to promote independence in ADL's, mobility, safety and/or upper extremity function for ADL's. Plan of Care: ADL Retraining, Caregiver Training, Concurrent Therapy, Functional Mobility, Group Exercise/Act as Ind, UE Funct Exercise/Act Treatment Duration: Jul 16, 2019 Frequency: At least 5 of 7 days/Wk (IRF) Estimated Hrs Per Day: 1.5 hours per day Agreement: Yes Rehab Potential: Good Time/GCodes Start Time: 08:00 Stop Time: 09:30 Total Time Billed (hr/min): 90 Billed Treatment Time 1, ADL 4 (60), EX 2 (30)= 90 KODI LEO OTR Jul 04, 2019 09:32
--- NOTE | 2019-07-04 09:47 | NUR ---
Late entry: Patient received Privacy Act Statement and Data Collection Information Summary at admission.
--- NOTE | 2019-07-04 09:55 | Individualized Plan of Care ---
Individualized Plan of Care Rehab Nursing IPOC Order Admission Date Jul 02, 2019 at 13:58 Current Orders Orders Admission Order(Inpt,Obs,Sdc) (07/02/19 12:14) Vital Signs: Per Unit Policy ( 08,16,00 (07/02/19 12:14) Jono Sheehan , (07/02/19 12:14) Sequential Compression Device Q4H (07/02/19 12:14) Ems Helicopter Pilot-Inpt Rehab Con (07/02/19 12:14) Rehab Nursing Orders-Ipoc (07/02/19 12:14) Physical Therapy Rehab Orders (07/02/19 12:14) Occupational Therapy Rehab Ord (07/02/19 12:14) Speech Therapy Rehab Orders (07/02/19 12:14) Cbc With Automated Diff (07/03/19 06:00) Comprehensive Metabolic Panel (07/03/19 06:00) General/Regular (07/02/19 Dinner) Intake & Output ,, (07/02/19 12:14) Precautions (Aru) (07/02/19 12:14) Weekly Weight WEEK (07/02/19 12:14) Rehab-Intensity Of Therapy (07/02/19 12:14) Initiate Admission Nursing Pro .admission (07/02/19 12:14) Acetaminophen Tablet (Tylenol Tablet) (07/02/19 12:15) Alprazolam Tablet (Xanax Tablet) (07/02/19 12:15) Calcium Carbonate Chew Tablet (Antacid C (07/02/19 12:15) Diphenhydramine Tablet (Benadryl Tablet) (07/02/19 12:15) Docusate Sodium Capsule (Colace Capsule) (07/02/19 21:00) Docusate Sodium Capsule (Colace Capsule) (07/02/19 12:15) Bisacodyl Suppository (Dulcolax Supposit (07/02/19 12:15) Lactulose Oral Solution (Enulose Oral So (07/02/19 12:15) Na Phos/Na Biphos Enema (Fleet Enema Owen (07/02/19 12:15) Guaifenesin/Codeine Syrup (Robitussin Ac (07/02/19 12:15) Loperamide Tablet (Imodium Tablet) (07/02/19 12:15) Enoxaparin Injection (Lovenox Injection) (07/02/19 19:00) Melatonin Tablet (Melatonin Tablet) (07/02/19 12:15) Polyethylene Glycol Powder Pkt (Miralax (07/02/19 21:00) Ondansetron Oral Dissolve Tab (Zofran (07/02/19 12:15) Senna S Tablet (Senokot S Tablet) (07/02/19 21:00) Consult Cardiology (07/02/19 12:14) Consult Pulmonology (07/02/19 12:14) Initiate Admission Nursing Pro .admission (07/02/19 12:14) Patient Visit (07/02/19 ) Pt Eval Moderate Complexity (07/02/19 ) Functional Activities, Ea 15 (07/02/19 ) Ex Neuromuscular, Ea 15 Min (07/02/19 ) Losartan Tablet (Cozaar Tablet) (07/03/19 09:00) Us Venous Lower Ext Jeremy (07/03/19 18:08) Aspirin Enteric Coated Tablet (Ecotrin T (07/03/19 09:00) Calcium Carbonate W/Vitamin D3 (Calcarb (07/03/19 08:00) Furosemide Tablet (Lasix Tablet) (07/03/19 09:00) Latanoprost 0.005% Ophth Soln (Xalatan 0 (07/03/19 09:00) Therapeutic Multivitamin Tab (Vitamins, (07/03/19 07:00) Oxybutynin Xl (Non-Formulary) (Ditropan- (07/03/19 09:00) Potassium Chloride (Tablet) (Klor Con Ta (07/03/19 07:00) (Nf) Timolol Maleate (07/02/19 21:00) Latanoprost 0.005% Ophth Soln (Xalatan 0 (07/02/19 21:00) Timolol 0.5% Ophthalmic Soln (Timoptic 0 (07/02/19 21:00) Oxybutynin Tablet (Ditropan Tablet) (07/03/19 21:00) Patient Visit (07/03/19 ) Gait Training, Ea 15 Min (07/03/19 ) Exercise Therap, Ea 15 Min (07/03/19 ) Montelukast Tablet (Singulair Tablet) (07/03/19 21:00) Code/Resuscitation (07/03/19 11:59) Chest 1 View, Ap/Pa Only (07/03/19 14:14) Patient Visit (07/03/19 ) Speech Sound Lang Comp (07/03/19 ) Fluticasone/Salmeterol Common (Advair 11 (07/03/19 20:00) Mdi Treatment (07/03/19 14:38) Albuterol/Ipra Inhalation Soln (Duoneb I (07/03/19 15:00) Svn Small Volume Nebulizer (07/03/19 14:38) Patient Visit (07/03/19 ) Gait Training, Ea 15 Min (07/03/19 ) Patient Visit (07/04/19 ) Exercise Therap, Ea 15 Min (07/04/19 ) Gait Training, Ea 15 Min (07/04/19 ) Functional Activities, Ea 15 (07/04/19 ) Nursing Communication (Order) (07/04/19 16:21) Rehab Nursing Orders: Ongoing Assess. of Cognitive Status, Ongoing Assess. of Function Status, Bladder Scan, Bladder Training, Bowel Management, Bowel Training, Disease Management & Educaiton, DVT Prophylaxis, Fall Prevention, Fluid/Electrolyte/Nutrition Mgmt, Infection Prevention, Management of Skin Intergrity, Nutrition Management, Pain Management, Patient/Family Support, Safety Management, Swallow Precautions Intensity of Therapy to be met Patient to be seen: 15 hrs over 7 cons. days PT IPOC Problem List: Activity Tolerance, Functional Strength, Safety Treatment Plan: Continue Plan of Care Bed Mobility, Education, Functional Activity Chrissy, Functional Strength, Group Therapy, Gait, Safety, Therapeutic Exercise, Transfers Treatment Duration: Jul 17, 2019 Frequency: Modified Program (IRF) Estimated Hrs Per Day: 1 hour per day (to 1.5 hrs/day) OT IPOC Problems: Decreased Activ Tolerance OT Treatment, Training and Edu: Yes Plan of Care: ADL Retraining, Caregiver Training, Concurrent Therapy, Functional Mobility, Group Exercise/Act as Ind, UE Funct Exercise/Act Treatment Duration: Jul 16, 2019 Frequency: At least 5 of 7 days/Wk (IRF) Estimated Hrs Per Day: 1.[address] IPOC Speech Therapy Treatment Plan: Discontinue ST Treatment Duration: Jul 03, 2019 Frequency: 1 time per week Estimated Hrs Per Day: .25 hour per day Ems Helicopter Pilot/Case Mgmt Ems Helicopter Pilot/Case Managemen: Discharge Planning Dietitian/Community Health Planning Director Dietitian/Community Health Planning Director to monitor nutritional status and make changes and/or recommendations as needed and work with speech pathology on dietary upgrades as the occur. Physician IPOC Medical Issues being managed closely and that require the 24 hour availability of a physician: Recent Mycoplasma and UTI and new onset O2 dependence will require close monitoring of vital signs in order to confirm clinical stability Medical Issues: Bowel/Bladder Function, DVT Prophylaxis, Falls Precautions, Fluid/Electrolyte/Nutrition Balance, Infection Protection, Pain Management Brief Synthesis of Preadmission Screen, Post-Admission Evaluation, and Therapy Evaluations: PT and OT will focus on independence and regaining ADL's in newly dependent O2 Medical Prognosis: Good Anticipated Length of Stay: 7 days RIKA BERUMEN DO Jul 04, 2019 09:55
--- NOTE | 2019-07-04 09:56 | PM&R Progress Note ---
Subjective HPI/CC On Admission Date Seen by Provider: Jul 04, 2019 Time Seen by Provider: 09:30 Subjective/Events-last exam Had a BM finally Doing well overall Less dyspnea Sleeps in her chair but she does this at home Feeling much better with the O2 Conferred with RN Reviewed therapy notes Checked meds and labs Review of Systems General: Fatigue Pulmonary: Dyspnea Cardiovascular: Edema Objective Exam Vital Signs Vital Signs Date Time Temp Pulse Resp B/P (MAP) Pulse Ox O2 Delivery O2 Flow Rate FiO2 07/04/19 17:33 36.6 95 20 130/83 (99) 81 Nasal Cannula 2.00 Capillary Refill : Less Than 3 Seconds General Appearance: No Apparent Distress, WD/WN, Chronically ill, Obese HEENT: PERRL/EOMI, Normal ENT Inspection, Pharynx Normal, Moist Mucous Membranes Neck: Full Range of Motion, Normal Inspection, Non Tender, Supple, Carotid Bruit Respiratory: Chest Non Tender, Normal Breath Sounds, No Accessory Muscle Use, No Respiratory Distress, Decreased Breath Sounds Cardiovascular: Regular Rate, Rhythm, No Gallop, No JVD, No Murmur, Normal Peripheral Pulses Gastrointestinal: Normal Bowel Sounds, No Organomegaly, No Pulsatile Mass, Non Tender, Soft Back: Normal Inspection, No CVA Tenderness, No Vertebral Tenderness Extremity: Normal Capillary Refill, Normal Inspection, Normal Range of Motion, Non Tender, No Calf Tenderness, Pedal Edema Neurologic/Psychiatric: Alert, Oriented x3, No Motor/Sensory Deficits, Normal Mood/Affect, health care aide II-XII Norm as Tested, Motor Weakness (generalized, ambulates slowly) Skin: Normal Color, Warm/Dry Lymphatic: No Adenopathy Results/Procedures Lab Patient resulted labs reviewed. FIM Transfers Therapy Code Descriptions/Definitions Functional [place] Measure: 0=Not Assessed/NA 4=Minimal Assistance 1=Total Assistance 5=Supervision or Setup 2=Maximal Assistance 6=Modified [place] 3=Moderate Assistance 7=Complete IndependenceSCALE: Activities may be completed with or without assistive devices. 9-Bqzlrttkxv-qcwxmeg completes the activity by him/herself with no assistance from a helper. 5-Set-up or Clean-up Assistance-helper sets up or cleans up; patient completes activity. [place] assists only prior to or following the activity. 4-Supervision or Touching Assistance-helper provides verbal cues and/or touching/steadying and/or contact guard assistance as patient completes activity. Assistance may be provided throughout the activity or intermittently. 3-Partial/Moderate Assistance-helper does LESS THAN HALF the effort. [place] lifts, holds or supports trunk or limbs, but provides less than half the effort. 2-Substantial/Maximal Assistance-helper does MORE THAN HALF the effort. [place] lifts or holds trunk or limbs and provides more than half the effort. 5-Rwouhhdbz-xshsqq does ALL the effort. Patient does none of the effort to complete the activity. Or, the assistance of 2 or more helpers is required for the patient to complete the activity. If activity was not attempted, code reason: 7-Patient Refused. 9-Not Applicable-not attempted and the patient did not perform the activity before the current illness, exacerbation or injury. 10-Not Attempted due to Environmental Limitations-(lack of equipment, weather restraints, etc.). 88-Not Attempted due to Medical Conditions or Safety Concerns. Roll Left to Right (QC): 3 (min assist to initiate and use of bedrail) Sit to Lying (QC): 2 (assist with both legs to get into bed. ) Sit to Stand (QC): 3 Chair/Lyf-id-Fkapo Xfer(QC): 4 Car Transfer (QC): 3 (min assist to get in/out and cues for sequencing) Gait Training Does the Patient Walk?: Yes Distance: 100 ft; 100 ft; 50 ft; 150 ft Walk 10 feet (QC): 3 (min assist for balance and safety) Walk 50 ft with 2 Turns(QC): 3 (min assist for balance and safety) Walk 150 ft (QC): 88 Walking 10ft/uneven surface-QC: 3 (min assist for balance) Gait Assistive Device: Cane Large Base Quad Wheelchair Training Does the Pt Use a Wheelchair?: No Stair Training Stair Training: Handrails/: 2 handrails 1 Step (curb) (QC): 3 (min assist to step up) 4 Steps (QC): 3 12 Steps (QC): 88 Stairs: Pattern: Step to Balance Picking up an Object (QC): 88 ADL-Treatment Eating (QC): 6 Oral Hygiene (QC): 4 (SBA in stance at sink.) Bathing Location: L Arm, R Arm, L Upper Leg, R Upper Leg, L Lower Leg (including foot), R Lower Leg (including foot), Chest, Abdomen, Buttocks, Perineal Area Shower/Bathe Self (QC): 4 (SBA with use of grab bars in stance. CGA during shower transfer.) Upper Body Dressing (QC): 6 Lower Body Dressing (QC): 4 (Cues for use of filling and stapling machine operator for undergarments and pants. Pt requires SBA during over hip movement.) On/Off Footwear (QC): 2 (Pt required max A for socks on this date due to weakness. Pt states at home she is able to pull up with rail/ dresser to get enought assist to pull ankle over knee, pt not able to on this date.) Toileting Hygiene (QC): 4 (SBA) Toilet Transfer (QC): 4 (SBA) Assessment/Plan Assessment and Plan Assess & Plan/Chief Complaint Assessment: New O2 dependence Debility following Mycoplasma and UTI PHTN Edema Chronic right foot drop uses AFO Edema HTN OAB Plan: IRF protocol Edema treatment with wide alan wraps (1) Debility (2) COPD (chronic obstructive pulmonary disease) (3) Oxygen dependent (4) Hypoxemia (5) Edema (6) Hypertension (7) H/O mycoplasma pneumonia (8) Hx: UTI (urinary tract infection) (9) Foot drop, right (10) Glaucoma (11) Overactive bladder RIKA BERUMEN DO Jul 04, 2019 09:56
--- NOTE | 2019-07-04 11:01 | Physical Therapy Daily Note ---
PT Daily Note-Current Subjective Pt states she is slowly improving and feels better today. States she suspects she will go home on O2. Points out that she usually wears an AFO but is too swollen for it now. Pain Location: No Pain Reported Mental Status Patient Orientation: Normal For Age Attachments: Oxygen (2L) Transfers SCALE: Activities may be completed with or without assistive devices. 9-Erhrhdxtlg-qbfzyag completes the activity by him/herself with no assistance from a helper. 5-Set-up or Clean-up Assistance-helper sets up or cleans up; patient completes activity. [place] assists only prior to or following the activity. 4-Supervision or Touching Assistance-helper provides verbal cues and/or touching/steadying and/or contact guard assistance as patient completes activity. Assistance may be provided throughout the activity or intermittently. 3-Partial/Moderate Assistance-helper does LESS THAN HALF the effort. [place] lifts, holds or supports trunk or limbs, but provides less than half the effort. 2-Substantial/Maximal Assistance-helper does MORE THAN HALF the effort. [place] lifts or holds trunk or limbs and provides more than half the effort. 5-Whocmuzso-sgmeyd does ALL the effort. Patient does none of the effort to complete the activity. Or, the assistance of 2 or more helpers is required for the patient to complete the activity. If activity was not attempted, code reason: 7-Patient Refused. 9-Not Applicable-not attempted and the patient did not perform the activity before the current illness, exacerbation or injury. 10-Not Attempted due to Environmental Limitations-(lack of equipment, weather restraints, etc.). 88-Not Attempted due to Medical Conditions or Safety Concerns. Roll Left & Right (QC): 5 Sit to Lying (QC): 5 Lying to Sitting/Side of Bed(Q: 5 Sit to Stand (QC): 5 Chair/Xcv-st-Qmfvv Xfer(QC): 5 Toilet Transfer (QC): 5 pt. states she actually sleeps in her recliner at home as she has back pain but agrees to attempt bed TRF and was able to get in and out flat surface of Rx table in gym using walker as rail with only instruction Gait Training Does the Patient Walk?: Yes Walk 10 feet (QC): 5 Walk 50 ft with 2 Turns(QC): 5 Walk 150 ft (QC): 5 Gait Persons Needed: 1 Gait Assistive Device: FWW slow with standing rest breaks as pt. has some dyspnea, O2 at 2L Exercises Supine Ex: Ankle pumps, Quad Set, Rolling, Glut sets, Heel Slides, Short Arc Quads, Scooting, Hip abd/add Supine Reps: 12 Seated Therapy Exercises: Ankle pumps, Sit to stand, Long arc quads, Hip flexion, Hip abd/add Seated Reps: 10 Treatments toileted x 2 during Rx with c/o incont urine. changed brief and slacks off and on with mod assist, cleaned self indep Assessment Current Status: Good Progress PT Short Term Goals Short Term Goals Time Frame: Jul 09, 2019 Sit to lyin Lying to sitting on side of be: 4 Sit to stand: 4 Walk 150 feet: 4 PT Detention Goals Detention Goals PT Rail Loader Goals Time Frame: Jul 17, 2019 Roll Left & Right (QC): 6 Sit to Lying (QC): 6 Lying-Sitting on Side/Bed(QC): 6 Sit to Stand (QC): 6 Chair/Tnr-hw-Qbkqj Xfer(QC): 6 Toilet Transfer (QC): 6 Car Transfer (QC): 5 Does the Patient Walk: Yes Walk 10 feet (QC): 6 Walk 50ft with 2 Turns (QC): 6 Walk 150 ft (QC): 6 Walking 10ft on Uneven Surface: 5 1 Step (curb) (QC): 5 4 Steps (QC): 4 12 Steps (QC): 9 Picking up an Object (QC): 4 Does the Pt use WC or Scooter?: No PT Plan Treatment/Plan Treatment Plan: Continue Plan of Care Treatment Plan: Bed Mobility, Education, Functional Activity Chrissy, Functional Strength, Group Therapy, Gait, Safety, Therapeutic Exercise, Transfers Treatment Duration: Jul 17, 2019 Frequency: Modified Program (IRF) Estimated Hrs Per Day: 1 hour per day (to 1.5 hrs/day) Patient and/or Family Agrees t: Yes Safety Risks/Education Patient Education: Gait Training, Transfer Techniques, Correct Positioning, Disease Process, Safety Issues Teaching Recipient: Patient Teaching Methods: Demonstration, Discussion Response to Teaching: Verbalize Understanding, Return Demonstration, Reinforcement Needed Time/GCodes Time In: 1000 Time Out: 1100 Total Billed Treatment Time: 60 Total Billed Treatment 1,EX20m,FA25m,GT15m DERIAN MERCADO REMELT OPERATOR Jul 04, 2019 11:01
--- NOTE | 2019-07-04 11:22 | Cardiology Progress Note ---
Subjective Date Seen by Provider: Jul 04, 2019 Time Seen by Provider: 11:20 Subjective/Events-last exam Patient with PT/OT, no new complaints. Reports dyspnea continues to improve. Review of Systems General: No Chills, No Night Sweats, No Fatigue, No Malaise, No Appetite, No Other HEENT: No Head Aches, No Visual Changes, No Eye Pain, No Ear Pain, No Dysphasia, No Sinus Congestion, No Post Nasal Drip, No Sore Throat, No Other Pulmonary: No Dyspnea, No Cough, No Pleuritic Chest Pain, No Other Cardiovascular: No: Chest Pain, Palpitations, Orthopnea, Paroxysmal Noc. Dyspnea, Edema, Lt Headedness, Other Objective-Cardiology Exam Last Set of Vital Signs Vital Signs 07/04/19 07/04/19 05:21 14:34 Temp 37.0 Pulse 71 Resp 18 B/P (MAP) 154/88 (110) Pulse Ox 96 O2 Delivery Nasal Cannula O2 Flow Rate 2.00 Capillary Refill : Less Than 3 Seconds I&O Intake and Output 07/04/19 00:00 Intake Total 1500 ml Balance 1500 ml Intake Oral 1500 ml # Voids 7 General: Alert, Oriented X3, Cooperative HEENT: Atraumatic, PERRLA Neck: Supple, No JVD, No Thyromegaly Lungs: Clear to Auscultation, Normal Air Movement Heart: Regular Rate, Normal S1, Normal S2, No Murmurs Abdomen: Normal Bowel Sounds, Soft, No Tenderness, No Hepatosplenomegaly, No Masses Extremities: No Clubbing, No Cyanosis, No Edema, Normal Pulses, No Tenderness/Swelling Skin: No Rashes, No Breakdown, No Significant Lesion Neuro: Normal Gait, Normal Speech, Strength at 5/5 X4 Ext, Normal Tone, Sensation Intact Psych/Mental Status: Mental Status NL, Mood NL A/P-Cardiology Admission Diagnosis Shortness of breath Pulmonary hypertension Hypertension Sinus bradycardia Assessment/Plan Shortness of breath, has been having deterioration over the past few years. Probably underlying COPD, seen by Dr. Montiel, continue to monitor. Pulmonary hypertension, severe, probably due to COPD, venous doppler negative for DVT. Bradycardia, history of sinus bradycardia in the past, currently asymptomatic. Continue to monitor heart rate and blood pressure Hypertension, maintained on losartan as an outpatient,continue to monitor. Recent pneumonia, managed by primary care physician Debility and shortness of breath, starting physical therapy Patient was seen and evaluated with Jillian, examination performed, management plan was discussed, agree with the current scribed note, I made few changes to the note using Italic font Patient is feeling better today, seen during physical therapy session Continue on current medication continue to monitor Clinical Quality Measures DVT/VTE Risk/Contraindication: Risk Factor Score Per Nursin RFS Level Per Nursing on Admit: 4+=Very High JILLIAN BEST Jul 04, 2019 11:22 am CRUZ DANIELS MD Jul 04, 2019 4:59 pm
--- NOTE | 2019-07-04 11:59 | Occupational Ther Daily Note ---
OT Current Status-Daily Note Subjective Make-up note from 07/03/19: Pt seen in recliner chair post-lunch. Pt denies bathroom, stating she just went. Agreeable to therapy gym/ strengthening. Mental Status/Objective Patient Orientation: Normal For Age Attachments: Oxygen ADL-Treatment Therapy Code Descriptions/Definitions Functional [place] Measure: 0=Not Assessed/NA 4=Minimal Assistance 1=Total Assistance 5=Supervision or Setup 2=Maximal Assistance 6=Modified [place] 3=Moderate Assistance 7=Complete IndependenceSCALE: Activities may be completed with or without assistive devices. 8-Pubpdcbfaa-qvosgbp completes the activity by him/herself with no assistance from a helper. 5-Set-up or Clean-up Assistance-helper sets up or cleans up; patient completes activity. [place] assists only prior to or following the activity. 4-Supervision or Touching Assistance-helper provides verbal cues and/or touching/steadying and/or contact guard assistance as patient completes activity. Assistance may be provided throughout the activity or intermittently. 3-Partial/Moderate Assistance-helper does LESS THAN HALF the effort. [place] lifts, holds or supports trunk or limbs, but provides less than half the effort. 2-Substantial/Maximal Assistance-helper does MORE THAN HALF the effort. [place] lifts or holds trunk or limbs and provides more than half the effort. 3-Vsogczntg-oysicl does ALL the effort. Patient does none of the effort to complete the activity. Or, the assistance of 2 or more helpers is required for the patient to complete the activity. If activity was not attempted, code reason: 7-Patient Refused. 9-Not Applicable-not attempted and the patient did not perform the activity before the current illness, exacerbation or injury. 10-Not Attempted due to Environmental Limitations-(lack of equipment, weather restraints, etc.). 88-Not Attempted due to Medical Conditions or Safety Concerns. Eating (QC): 6 Toileting Hygiene (QC): 4 (SUP in stance.) Toilet Transfer (QC): 4 (SBA, use of walker.) Other Treatment Pt requires mod A to sit to stand from recliner chair. Ambulates with 2WW to therapy gym. Pt completes 20 reps of bicep curls, trunk twists with 3# weighted bar and 20 reps of shoulder flexion with 1# weighted bar. Pt takesn ~1 min break in between exercises. Pt educated on home exercises and use of items throughout the home for use of exercise. Pt demonstrates slight SOB, takes breaks and recovers quickly. pt returns to room without break, utilizes bathroom with SUP. Pt sits in recliner with all needs met, call light in reach, situated in chair for comfort. Education OT Patient Education: Correct positioning, Exercise program, Home exercise program Teaching Recipient: Patient Teaching Methods: Demonstration, Discussion Response to Teaching: Verbalize Understanding, Return Demonstration OT Short Term Goals Short Term Goals Upper body dressin Lower body dressin OT Halfway Goals Halfway Goals Time Frame: Jul 16, 2019 Eating (QC): 6 Oral Hygiene (QC): 6 Toileting Hygiene (QC): 6 Shower/Bathe Self (QC): 6 Upper Body Dressing (QC): 6 (met) Lower Body Dressing (QC): 6 On/Off Footwear (QC): 6 Additional Goals: 1-Demonstrate ADL Tasks, 2-Verbalize Understanding, 3- ImproveStrength/Chrissy 1=Demonstrate adherence to instructed precautions during ADL tasks. 2=Patient will verbalize/demonstrate understanding of assistive devices/modifications for ADL. 3=Patient will improve strength/tolerance for activity to enable patient to perform ADL's. OT Education/Plan Problem List/Assessment Assessment: Decreased Activ Tolerance, Decreased UE Strength, Dependent [place] sfers, Edema, Impaired I ADL's, Impaired Self-Care Skills Discharge Recommendations Plan/Recommendations: Continue POC Treatment Plan/Plan of Care Patient would benefit from OT for education, treatment and training to promote independence in ADL's, mobility, safety and/or upper extremity function for ADL's. Plan of Care: ADL Retraining, Caregiver Training, Concurrent Therapy, Functional Mobility, Group Exercise/Act as Ind, UE Funct Exercise/Act Treatment Duration: Jul 16, 2019 Frequency: At least 5 of 7 days/Wk (IRF) Estimated Hrs Per Day: 1.5 hours per day Agreement: Yes Rehab Potential: Good Time/GCodes Start Time: 12:35 Stop Time: 13:05 Total Time Billed (hr/min): 30 Billed Treatment Time 1, EX (20), ADL (10)= 30 KODI LEO OTR Jul 04, 2019 11:59
--- NOTE | 2019-07-04 15:15 | Physical Therapy Daily Note ---
PT Daily Note-Current Subjective Pt. requests to go to bathroom x 2 during Rx. 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 Pain Location: No Pain Reported Mental Status Patient Orientation: Normal For Age Attachments: Oxygen (2L) Transfers SCALE: Activities may be completed with or without assistive devices. 8-Hqznnwmdqm-fnwhoif completes the activity by him/herself with no assistance from a helper. 5-Set-up or Clean-up Assistance-helper sets up or cleans up; patient completes activity. [place] assists only prior to or following the activity. 4-Supervision or Touching Assistance-helper provides verbal cues and/or touching/steadying and/or contact guard assistance as patient completes ac tivity. Assistance may be provided throughout the activity or intermittently. 3-Partial/Moderate Assistance-helper does LESS THAN HALF the effort. [place] lifts, holds or supports trunk or limbs, but provides less than half the effort. 2-Substantial/Maximal Assistance-helper does MORE THAN HALF the effort. [place] lifts or holds trunk or limbs and provides more than half the effort. 2-Bjeuwikpw-ytsxpl does ALL the effort. Patient does none of the effort to complete the activity. Or, the assistance of 2 or more helpers is required for the patient to complete the activity. If activity was not attempted, code reason: 7-Patient Refused. 9-Not Applicable-not attempted and the patient did not perform the activity before the current illness, exacerbation or injury. 10-Not Attempted due to Environmental Limitations-(lack of equipment, weather restraints, etc.). 88-Not Attempted due to Medical Conditions or Safety Concerns. on off toilet, in out recliner all SBA Gait Training Does the Patient Walk?: Yes Gait Assistive Device: FWW 160ft x 2 , 50 ft CGA to SBA and education on extended tubing for O2 safety during ambulation Exercises Seated Therapy Exercises: Ankle pumps, Sit to stand, Long arc quads, Hip flexion Seated Reps: 10 NuStep Minutes: 10 NuStep Workload: 3 Assessment Current Status: Good Progress PT Short Term Goals Short Term Goals Time Frame: Jul 09, 2019 Sit to lyin Lying to sitting on side of be: 4 Sit to stand: 4 Walk 150 feet: 4 PT Sheet Cutting Operator Goals [facility]it[facility]iary Goals PT [facility]it[facility]iary Goals Time Frame: Jul 17, 2019 Roll Left & Right (QC): 6 Sit to Lying (QC): 6 Lying-Sitting on Side/Bed(QC): 6 Sit to Stand (QC): 6 Chair/Cmh-gv-Gruyf Xfer(QC): 6 Toilet Transfer (QC): 6 Car Transfer (QC): 5 Does the Patient Walk: Yes Walk 10 feet (QC): 6 Walk 50ft with 2 Turns (QC): 6 Walk 150 ft (QC): 6 Walking 10ft on Uneven Surface: 5 1 Step (curb) (QC): 5 4 Steps (QC): 4 12 Steps (QC): 9 Picking up an Object (QC): 4 Does the Pt use WC or Scooter?: No PT Plan Treatment/Plan Treatment Plan: Continue Plan of Care Treatment Plan: Bed Mobility, Education, Functional Activity Chrissy, Functional Strength, Group Therapy, Gait, Safety, Therapeutic Exercise, Transfers Treatment Duration: Jul 17, 2019 Frequency: Modified Program (IRF) Estimated Hrs Per Day: 1 hour per day (to 1.5 hrs/day) Patient and/or Family Agrees t: Yes Safety Risks/Education Patient Education: Gait Training, Transfer Techniques, Correct Positioning, Safety Issues Teaching Recipient: Patient Teaching Methods: Demonstration, Discussion Response to Teaching: Verbalize Understanding, Return Demonstration, Reinforcement Needed gait with extended O2 tubing is pts challenge for safety issues as she may have O2 at home Time/GCodes Time In: 1435 Time Out: 1505 Total Billed Treatment Time: 30 Total Billed Treatment 1,GT15m,EX15m DERIAN MERCADO SEPTIC TANK SETTER Jul 04, 2019 15:15
[2019-07-04 17:33] VITALS: BP 130/83
[2019-07-04] MEDS: ENOXAPARIN 40 MG/0.4 ML (LOVENOX) SYR SC SCH (18:49)
[2019-07-04] MEDS: LATANOPROST 0.005% (XALATAN) OPHTH SOLN 2.5 ML OU SCH (20:22)
[2019-07-04] MEDS: MONTELUKAST 10 MG (SINGULAIR) TAB PO SCH (20:22)
[2019-07-05] MEDS: RT-ALBUTEROL/IPRATROPIUM 3 ML (DUONEB) VIAL INH SCH ×4 (02:17→20:11)
[2019-07-05] MEDS: MULTIVIT W/MINERALS TAB (THERAGRAN M) PO SCH (05:52)
[2019-07-05] MEDS: KCL 10 MEQ TAB (MICRO K) PO SCH (05:52)
[2019-07-05 05:56] VITALS: BP 133/83
[2019-07-05] MEDS: RT-ADVAIR HFA 115/21 MCG PER PUFF IH SCH ×2 (07:46→20:12)
--- NOTE | 2019-07-05 08:28 | Cardiology Progress Note ---
Subjective Date Seen by Provider: Jul 05, 2019 Time Seen by Provider: 08:05 Subjective/Events-last exam Patient sitting up in chair, no new c/o. Denies any chest pain or increased dyspnea. Review of Systems General: No Chills, No Night Sweats, No Fatigue, No Malaise, No Appetite, No Other HEENT: No Head Aches, No Visual Changes, No Eye Pain, No Ear Pain, No Dysphasia, No Sinus Congestion, No Post Nasal Drip, No Sore Throat, No Other Pulmonary: Dyspnea; No Cough, No Pleuritic Chest Pain, No Other Cardiovascular: Edema; No: Chest Pain, Palpitations, Orthopnea, Paroxysmal Noc. Dyspnea, Lt Headedness, Other Objective-Cardiology Exam Last Set of Vital Signs Vital Signs 07/05/19 07/05/19 05:56 07:48 Temp 36.5 Pulse 73 Resp 18 B/P (MAP) 133/83 (100) Pulse Ox 98 O2 Delivery Nasal Cannula O2 Flow Rate 2.00 Capillary Refill : Less Than 3 Seconds I&O Intake and Output 07/05/19 00:00 Intake Total 1150 ml Balance 1150 ml Intake Oral 1150 ml # Voids 7 # Bowel Movements 2 General: Alert, Oriented X3, Cooperative HEENT: Atraumatic, PERRLA Neck: Supple, No JVD, No Thyromegaly Lungs: Clear to Auscultation, Normal Air Movement Heart: Regular Rate, Normal S1, Normal S2, No Murmurs Abdomen: Normal Bowel Sounds, Soft, No Tenderness, No Hepatosplenomegaly, No Masses Extremities: No Clubbing, No Cyanosis, No Edema, Normal Pulses, No Tenderness/Swelling Skin: No Rashes, No Breakdown, No Significant Lesion Neuro: Normal Gait, Normal Speech, Strength at 5/5 X4 Ext, Normal Tone, Sensation Intact Psych/Mental Status: Mental Status NL, Mood NL A/P-Cardiology Admission Diagnosis Shortness of breath Pulmonary hypertension Hypertension Sinus bradycardia Assessment/Plan Shortness of breath, has been having deterioration over the past few years. Probably underlying COPD, seen by Dr. Montiel, continue to monitor. Pulmonary hypertension, severe, probably due to COPD, venous doppler negative for DVT. Bradycardia, history of sinus bradycardia in the past, currently asymptomatic. Continue to monitor heart rate and blood pressure Hypertension, maintained on losartan as an outpatient,continue to monitor. Recent pneumonia, managed by primary care physician Debility and shortness of breath, starting physical therapy Patient was seen and evaluated with Jillian, examination performed, management plan was discussed, agree with the current scribed note, I made few changes to the note using Italic font Patient was seen at bedside, feeling better, swelling is better Still having mild shortness of breath Continue on current medication I will reevaluate metabolic profile and liver enzymes Clinical Quality Measures DVT/VTE Risk/Contraindication: Risk Factor Score Per Nursin RFS Level Per Nursing on Admit: 4+=Very High JILLIAN BEST Jul 05, 2019 8:28 am CRUZ DANIELS MD Jul 05, 2019 9:57 am
--- NOTE | 2019-07-05 09:12 | Occupational Ther Daily Note ---
OT Current Status-Daily Note Subjective Pt seen in recliner chair, agreeable to OT tx session. Pt denies pain. Pt has ETTA bandages bilaterally, states some pain to R distal malone when re-wrapping. Pt's nurse notified of this Mental Status/Objective Patient Orientation: Normal For Age Attachments: Oxygen ADL-Treatment Therapy Code Descriptions/Definitions Functional [place] Measure: 0=Not Assessed/NA 4=Minimal Assistance 1=Total Assistance 5=Supervision or Setup 2=Maximal Assistance 6=Modified [place] 3=Moderate Assistance 7=Complete IndependenceSCALE: Activities may be completed with or without assistive devices. 8-Pwdkcxdbso-jseepgn completes the activity by him/herself with no assistance from a helper. 5-Set-up or Clean-up Assistance-helper sets up or cleans up; patient completes activity. [place] assists only prior to or following the activity. 4-Supervision or Touching Assistance-helper provides verbal cues and/or touch ing/steadying and/or contact guard assistance as patient completes activity. Assistance may be provided throughout the activity or intermittently. 3-Partial/Moderate Assistance-helper does LESS THAN HALF the effort. [place] lifts, holds or supports trunk or limbs, but provides less than half the effort. 2-Substantial/Maximal Assistance-helper does MORE THAN HALF the effort. [place] lifts or holds trunk or limbs and provides more than half the effort. 2-Bedgjtlnf-vmkaom does ALL the effort. Patient does none of the effort to complete the activity. Or, the assistance of 2 or more helpers is required for the patient to complete the activity. If activity was not attempted, code reason: 7-Patient Refused. 9-Not Applicable-not attempted and the patient did not perform the activity before the current illness, exacerbation or injury. 10-Not Attempted due to Environmental Limitations-(lack of equipment, weather restraints, etc.). 88-Not Attempted due to Medical Conditions or Safety Concerns. Eating (QC): 6 Shower/Bathe Self (QC): 3 (min A with bottom hygiene, CGA in stance) Upper Body Dressing (QC): 5 (s/u) Lower Body Dressing (QC): 4 (SBA in stance.) On/Off Footwear: 1 (TD on this date due to ETTA bandages and socks.) Toileting Hygiene (QC): 3 (min A for thoroughness.) Toilet Transfer (QC): 4 (CGA) Other Treatment Pt states slept really well, agreeable to sponge bath and dressing. During bathing, pt's wash cloth slightly red. Pt has small skin tear under R abdomen. Pt states she typically applies ointment at home. Nursing notified. Pt completes in recliner chair, states need for BM. Pt requires mod A for assist sit to stand. Pt requires multiple attempts before standing. Pt ambulates without difficulty to toielt. Pt completes BM and requires assist for clean up. Pt returns to chair, re-wrapping completed on BLE with nursing notified of slightly red/ dry/ tender area on R distal malone. Nursing gives small skin protector to OT to place between skin and ETTA bandage. Lotion and skin protector placed, legs re-wrapped with emphasis of R foot pressure and decreased pressure up to knee. Pt left in room with call light in reach, all needs met. Education OT Patient Education: Correct positioning, Energy conservation, Modified ADL techniques, Safety issues, Transfer techniques, Use of adapted equipment Teaching Recipient: Patient Teaching Methods: Demonstration, Discussion Response to Teaching: Verbalize Understanding, Return Demonstration OT Short Term Goals Short Term Goals Upper body dressin Lower body dressin OT Professional Services Consultant Goals [facility] Goals Time Frame: Jul 16, 2019 Eating (QC): 6 Oral Hygiene (QC): 6 Toileting Hygiene (QC): 6 Shower/Bathe Self (QC): 6 Upper Body Dressing (QC): 6 (met) Lower Body Dressing (QC): 6 On/Off Footwear (QC): 6 Additional Goals: 1-Demonstrate ADL Tasks, 2-Verbalize Understanding, 3- ImproveStrength/Chrissy 1=Demonstrate adherence to instructed precautions during ADL tasks. 2=Patient will verbalize/demonstrate understanding of assistive devices/modifications for ADL. 3=Patient will improve strength/tolerance for activity to enable patient to perform ADL's. OT Education/Plan Problem List/Assessment Assessment: Decreased Activ Tolerance, Decreased UE Strength, Dependent Transfers, Edema, Impaired Funct Balance, Impaired I ADL's, Impaired Self-Care Skills Discharge Recommendations Plan/Recommendations: Continue POC Treatment Plan/Plan of Care Treatment,Training & Education: Yes Patient would benefit from OT for education, treatment and training to promote independence in ADL's, mobility, safety and/or upper extremity function for ADL's. Plan of Care: ADL Retraining, Caregiver Training, Concurrent Therapy, Functional Mobility, Group Exercise/Act as Ind, UE Funct Exercise/Act Treatment Duration: Jul 16, 2019 Frequency: At least 5 of 7 days/Wk (IRF) Estimated Hrs Per Day: 1.5 hours per day Agreement: Yes Rehab Potential: Good Time/GCodes Start Time: 08:00 Stop Time: 09:00 Total Time Billed (hr/min): 60 Billed Treatment Time 1, ADL 4 (60) KODI LEO OTR Jul 05, 2019 09:12
--- NOTE | 2019-07-05 09:13 | PM&R Progress Note ---
Subjective HPI/CC On Admission Date Seen by Provider: Jul 05, 2019 Time Seen by Provider: 09:15 Subjective/Events-last exam Bowels are moving okay. Trying to use the AFO since the alan wraps are really helping the lower extremity edema. Denies any pain. SOB is improved but dyspnea on exertion. Conferred with RN Reviewed therapy notes Checked meds and labs Review of Systems Pulmonary: Dyspnea Objective Exam Vital Signs Vital Signs Date Time Temp Pulse Resp B/P (MAP) Pulse Ox O2 Delivery O2 Flow Rate FiO2 07/05/19 20:12 96 Nasal Cannula 2.00 07/05/19 17:27 36.8 74 20 149/60 (89) Capillary Refill : Less Than 3 Seconds General Appearance: No Apparent Distress, WD/WN, Chronically ill, Obese HEENT: PERRL/EOMI, Normal ENT Inspection, Pharynx Normal, Moist Mucous Membranes Neck: Full Range of Motion, Normal Inspection, Non Tender, Supple, Carotid Bruit Respiratory: Chest Non Tender, Normal Breath Sounds, No Accessory Muscle Use, No Respiratory Distress, Decreased Breath Sounds Cardiovascular: Regular Rate, Rhythm, No Gallop, No JVD, No Murmur, Normal Peripheral Pulses Gastrointestinal: Normal Bowel Sounds, No Organomegaly, No Pulsatile Mass, Non Tender, Soft Back: Normal Inspection, No CVA Tenderness, No Vertebral Tenderness Extremity: Normal Capillary Refill, Normal Inspection, Normal Range of Motion, Non Tender, No Calf Tenderness, Pedal Edema Neurologic/Psychiatric: Alert, Oriented x3, No Motor/Sensory Deficits, Normal Mood/Affect, drive in theater attendant II-XII Norm as Tested, Motor Weakness (generalized, ambulates slowly) Skin: Normal Color, Warm/Dry Lymphatic: No Adenopathy Results/Procedures Lab Patient resulted labs reviewed. FIM Transfers Therapy Code Descriptions/Definitions Functional [place] Measure: 0=Not Assessed/NA 4=Minimal Assistance 1=Total Assistance 5=Supervision or Setup 2=Maximal Assistance 6=Modified [place] 3=Moderate Assistance 7=Complete IndependenceSCALE: Activities may be completed with or without assistive devices. 3-Kqdxdgqybe-nxfgfbv completes the activity by him/herself with no assistance from a helper. 5-Set-up or Clean-up Assistance-helper sets up or cleans up; patient completes activity. [place] assists only prior to or following the activity. 4-Supervision or Touching Assistance-helper provides verbal cues and/or touching/steadying and/or contact guard assistance as patient completes activity. Assistance may be provided throughout the activity or intermittently. 3-Partial/Moderate Assistance-helper does LESS THAN HALF the effort. [place] lifts, holds or supports trunk or limbs, but provides less than half the effort. 2-Substantial/Maximal Assistance-helper does MORE THAN HALF the effort. [place] lifts or holds trunk or limbs and provides more than half the effort. 4-Smqdtctwl-doilbh does ALL the effort. Patient does none of the effort to complete the activity. Or, the assistance of 2 or more helpers is required for the patient to complete the activity. If activity was not attempted, code reason: 7-Patient Refused. 9-Not Applicable-not attempted and the patient did not perform the activity before the current illness, exacerbation or injury. 10-Not Attempted due to Environmental Limitations-(lack of equipment, weather restraints, etc.). 88-Not Attempted due to Medical Conditions or Safety Concerns. Roll Left to Right (QC): 5 Sit to Lying (QC): 5 Sit to Stand (QC): 5 Chair/Vaw-nf-Wlchn Xfer(QC): 5 Car Transfer (QC): 3 (min assist to get in/out and cues for sequencing) Gait Training Does the Patient Walk?: Yes Distance: 100 ft; 100 ft; 50 ft; 150 ft Walk 10 feet (QC): 5 Walk 50 ft with 2 Turns(QC): 5 Walk 150 ft (QC): 5 Walking 10ft/uneven surface-QC: 3 (min assist for balance) Gait Persons Needed: 1 Gait Assistive Device: FWW Wheelchair Training Does the Pt Use a Wheelchair?: No Stair Training Stair Training: Handrails/: 2 handrails 1 Step (curb) (QC): 3 (min assist to step up) 4 Steps (QC): 3 12 Steps (QC): 88 Stairs: Pattern: Step to Balance Picking up an Object (QC): 88 ADL-Treatment Eating (QC): 6 Oral Hygiene (QC): 4 (SBA in stance at sink.) Bathing Location: L Arm, R Arm, L Upper Leg, R Upper Leg, L Lower Leg (including foot), R Lower Leg (including foot), Chest, Abdomen, Buttocks, Perineal Area Shower/Bathe Self (QC): 4 (SBA with use of grab bars in stance. CGA during shower transfer.) Upper Body Dressing (QC): 6 Lower Body Dressing (QC): 4 (Cues for use of curriculum facilitator for undergarments and pants. Pt requires SBA during over hip movement.) On/Off Footwear (QC): 2 (Pt required max A for socks on this date due to weakness. Pt states at home she is able to pull up with rail/ dresser to get enought assist to pull ankle over knee, pt not able to on this date.) Toileting Hygiene (QC): 4 (SUP in stance.) Toilet Transfer (QC): 4 (SBA, use of walker.) Assessment/Plan Assessment and Plan Assess & Plan/Chief Complaint Assessment: New O2 dependence Debility following Mycoplasma and UTI PHTN Edema Chronic right foot drop uses AFO Edema HTN OAB Plan: IRF protocol Edema treatment with wide alan wraps O2 (1) Debility (2) COPD (chronic obstructive pulmonary disease) (3) Oxygen dependent (4) Hypoxemia (5) Edema (6) Hypertension (7) H/O mycoplasma pneumonia (8) Hx: UTI (urinary tract infection) (9) Foot drop, right (10) Glaucoma (11) Overactive bladder RIKA BERUMEN DO Jul 05, 2019 09:13
[2019-07-05] MEDS: polyethylene glycoL POWDER 17 GM (MIRALAX) PACK PO SCH ×2 (09:41→19:27)
[2019-07-05] MEDS: ASPIRIN E.C. 81 MG (ECOTRIN) TAB PO SCH (10:17)
[2019-07-05] MEDS: CALCIUM CARB + VIT D 600 MG (CALCARB + D) TAB PO SCH (10:17)
[2019-07-05] MEDS: FUROSEMIDE 40 MG (LASIX) TAB PO SCH (10:17)
[2019-07-05] MEDS: DOCUSATE SODIUM 100 MG (COLACE) CAP PO SCH ×2 (10:17→19:27)
[2019-07-05] MEDS: LOSARTAN 100 MG (COZAAR) TABLET PO SCH (10:17)
[2019-07-05] MEDS: SENNA W/DOCUSATE (SENOKOT S) TABLET PO SCH ×2 (10:17→19:27)
[2019-07-05] MEDS: OXYBUTYNIN (DITROPAN) 5 MG TAB PO SCH ×2 (10:17→21:21)
[2019-07-05] MEDS: TIMOLOL MALEATE 0.5% 5 ML (TIMOPTIC) BTL OU SCH ×2 (10:18→21:21)
--- NOTE | 2019-07-05 12:11 | Physical Therapy Daily Note ---
PT Daily Note-Current Subjective Pt sitting in recliner upon arrival. Pt asks to use restroom before leaving for Rx. Pain Location: No Pain Reported Mental Status Patient Orientation: Person, Place, Normal For Age Transfers SCALE: Activities may be completed with or without assistive devices. 0-Hngwfplaer-cjuzqrf completes the activity by him/herself with no assistance from a helper. 5-Set-up or Clean-up Assistance-helper sets up or cleans up; patient completes activity. [place] assists only prior to or following the activity. 4-Supervision or Touching Assistance-helper provides verbal cues and/or touching /steadying and/or contact guard assistance as patient completes activity. Assistance may be provided throughout the activity or intermittently. 3-Partial/Moderate Assistance-helper does LESS THAN HALF the effort. [place] lifts, holds or supports trunk or limbs, but provides less than half the effort. 2-Substantial/Maximal Assistance-helper does MORE THAN HALF the effort. [place] lifts or holds trunk or limbs and provides more than half the effort. 0-Vcuyyzdds-vwybld does ALL the effort. Patient does none of the effort to complete the activity. Or, the assistance of 2 or more helpers is required for the patient to complete the activity. If activity was not attempted, code reason: 7-Patient Refused. 9-Not Applicable-not attempted and the patient did not perform the activity before the current illness, exacerbation or injury. 10-Not Attempted due to Environmental Limitations-(lack of equipment, weather restraints, etc.). 88-Not Attempted due to Medical Conditions or Safety Concerns. Sit to Stand (QC): 5 Toilet Transfer (QC): 5 Weight Bearing Right Lower Extremity: Right Full Weight Bearing Left Lower Extremity: Left Full Weight Bearing Gait Training Does the Patient Walk?: Yes Distance: 150' x2 Walk 10 feet (QC): 5 Walk 50 ft with 2 Turns(QC): 5 Walk 150 ft (QC): 5 Gait Persons Needed: 1 Gait Assistive Device: FWW Wheelchair Training Does the Pt Use a Wheelchair?: No Exercises Seated Therapy Exercises: Ankle pumps, Long arc quads, Hip flexion, Kicking activity Seated Reps: 15 NuStep Minutes: 10 NuStep Workload: 3 Treatments Pt transfers from recliner to standing. Pt uses restroom then ambulates in hallway. Pt completes Seated EX followed by uses NuStep for 10m at WL 3. Pt returns to to room to use restroom then rest in recliner at end of Rx. Pt has all needs met, call light in hand. Assessment Current Status: Good Progress Pt needs occasional VC for sequencing and safety. PT Short Term Goals Short Term Goals Time Frame: Jul 09, 2019 Sit to lyin Lying to sitting on side of be: 4 Sit to stand: 4 Walk 150 feet: 4 PT Mcc Goals Mcc Goals PT Mcc Goals Time Frame: Jul 17, 2019 Roll Left & Right (QC): 6 Sit to Lying (QC): 6 Lying-Sitting on Side/Bed(QC): 6 Sit to Stand (QC): 6 Chair/Tqm-xt-Tztco Xfer(QC): 6 Toilet Transfer (QC): 6 Car Transfer (QC): 5 Does the Patient Walk: Yes Walk 10 feet (QC): 6 Walk 50ft with 2 Turns (QC): 6 Walk 150 ft (QC): 6 Walking 10ft on Uneven Surface: 5 1 Step (curb) (QC): 5 4 Steps (QC): 4 12 Steps (QC): 9 Picking up an Object (QC): 4 Does the Pt use WC or Scooter?: No PT Plan Problem List Problem List: Activity Tolerance, Functional Strength, Safety Treatment/Plan Treatment Plan: Continue Plan of Care Treatment Plan: Bed Mobility, Education, Functional Activity Chrissy, Functional Strength, Group Therapy, Gait, Safety, Therapeutic Exercise, Transfers Treatment Duration: Jul 17, 2019 Frequency: Modified Program (IRF) Estimated Hrs Per Day: 1 hour per day (to 1.5 hrs/day) Patient and/or Family Agrees t: Yes Safety Risks/Education Patient Education: Gait Training, Transfer Techniques, Correct Positioning, Safety Issues Teaching Recipient: Patient Teaching Methods: Discussion Response to Teaching: Verbalize Understanding Time/GCodes Time In: 900 Time Out: 1000 Total Billed Treatment Time: 60 Total Billed Treatment 1, GT (15m) & FA (15m) & EX x2 (30m) LEIDY CRUZ ETL ANALYST Jul 05, 2019 12:11
--- NOTE | 2019-07-05 14:11 | NUR ---
CM/SS WEEKLY TEAM CONFERENCE SUMMARY Reviewed Summary with patient. She did verbalize her desire to return home as soon as is possible; however, she does comprehend that since she resides alone it is important for her to maximize her recovery and independence while here. Patient agreed to a continued stay with a target discharge of 07/11/19 unless her progress reflects potential for earlier departure. She continues on supplemental O2, will monitor for new in-home need. [facility] recommended, likely through [facility].
--- NOTE | 2019-07-05 15:00 | Therapy Group Daily Note ---
Therapy Daily Group Note Patient Education Topic Other List Below (Handwashing & AD for walker) Exercises LE Seated Exercise, UE Exercise Session Ratio (pt:therapist): 3:1 Goal of Session: Home Safety Strategies, Memory Strategies, UE/LE Strengthing, Safety with Transfers, Use of Adaptive Equipment Goal Met for this Session: Yes Pt Benefit of Group: Contributions to Others, F/U Use of Strategies @Home, Increased Functional Safety, Increased Functional Strength, Improved Cognition, Recognition of Peers, Socialization Other/Notes Pt ambulated using FWW to [facility] for OT/PT group. Group consisted of introductions (name, place living, favorite childhood food), socialization, peer lead UE/LE seated exercises, educational topics of handwashing and AD for walkers. Pt introduced self appropriately and actively listened to peers. Pt was able to read exercise card and lead group in one exercise then completed other exercises that was lead by peers. Pt acknowledged understanding of educational topics by giving own strategies and personal stories on each topic. After group, pt ambulated back to room and sat in recliner. Call light and phone placed in reach. All needs met. Start Time: 13:00 Stop Time: 14:00 Total Billed Treatment Time: 60 Total Billed Treatment 1, GRP (60m) LEIDY CRUZ PTA Jul 05, 2019 15:00
[2019-07-05 17:27] VITALS: BP 149/60
[2019-07-05] MEDS: ENOXAPARIN 40 MG/0.4 ML (LOVENOX) SYR SC SCH (18:19)
[2019-07-05] MEDS: LATANOPROST 0.005% (XALATAN) OPHTH SOLN 2.5 ML OU SCH (21:21)
[2019-07-05] MEDS: MONTELUKAST 10 MG (SINGULAIR) TAB PO SCH (21:21)
[2019-07-06] MEDS: RT-ALBUTEROL/IPRATROPIUM 3 ML (DUONEB) VIAL INH SCH ×4 (02:29→22:00)
[2019-07-06 05:07] VITALS: BP 150/73
[2019-07-06 05:24] LABS: HEMOGLOBIN 11.9 G/DL (11.5-16.0); MEAN PLATELET VOLUME 9.4 FL (7.4-10.4); RED CELL DISTRIBUTION WIDTH 13.8 % (10.0-14.5); WHITE BLOOD COUNT 8.4 10^3/uL (4.3-11.0)
[2019-07-06 05:51] LABS: ALBUMIN 3.2 GM/DL (3.2-4.5); BILIRUBIN,TOTAL 0.6 MG/DL (0.1-1.0); CALCIUM 8.9 MG/DL (8.5-10.1); CREATININE SERUM 1.04 MG/DL (0.60-1.30); MAGNESIUM 2.2 MG/DL (1.6-2.4); POTASSIUM 4.3 MMOL/L (3.6-5.0); TOTAL PROTEIN 6.4 GM/DL (6.4-8.2)
--- NOTE | 2019-07-06 05:58 | PM&R Progress Note ---
Subjective HPI/CC On Admission Date Seen by Provider: Jul 06, 2019 Time Seen by Provider: 06:00 Subjective/Events-last exam Pt doing very well. Slept in a recliner the way she does at home. Maintain on oxygen that seems to be helping more and more every day. Bowels are moving. No pain is reported. Lower extremity edema is improved with wide etta wraps. Pt overall doing extremely well. Conferred with RN Reviewed therapy notes Checked meds and labs Review of Systems Pulmonary: Dyspnea Objective Exam Vital Signs Vital Signs Date Time Temp Pulse Resp B/P (MAP) Pulse Ox O2 Delivery O2 Flow Rate FiO2 07/06/19 08:10 Nasal Cannula 2.00 07/06/19 05:07 37.2 75 20 150/73 (98) 98 Capillary Refill : Less Than 3 Seconds General Appearance: No Apparent Distress, WD/WN, Chronically ill, Obese HEENT: PERRL/EOMI, Normal ENT Inspection, Pharynx Normal, Moist Mucous Membranes Neck: Full Range of Motion, Normal Inspection, Non Tender, Supple, Carotid Bruit Respiratory: Chest Non Tender, Normal Breath Sounds, No Accessory Muscle Use, No Respiratory Distress, Decreased Breath Sounds Cardiovascular: Regular Rate, Rhythm, No Gallop, No JVD, No Murmur, Normal Peripheral Pulses Gastrointestinal: Normal Bowel Sounds, No Organomegaly, No Pulsatile Mass, Non Tender, Soft Back: Normal Inspection, No CVA Tenderness, No Vertebral Tenderness Extremity: Normal Capillary Refill, Normal Inspection, Normal Range of Motion, Non Tender, No Calf Tenderness, Pedal Edema Neurologic/Psychiatric: Alert, Oriented x3, No Motor/Sensory Deficits, Normal Mood/Affect, 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 FIM Transfers Therapy Code Descriptions/Definitions Functional [place] Measure: 0=Not Assessed/NA 4=Minimal Assistance 1=Total Assistance 5=Supervision or Setup 2=Maximal Assistance 6=Modified [place] 3=Moderate Assistance 7=Complete IndependenceSCALE: Activities may be completed with or without assistive devices. 9-Ogygpgpski-mmuxynn completes the activity by him/herself with no assistance from a helper. 5-Set-up or Clean-up Assistance-helper sets up or cleans up; patient completes activity. [place] assists only prior to or following the activity. 4-Supervision or Touching Assistance-helper provides verbal cues and/or touching/steadying and/or contact guard assistance as patient completes activity. Assistance may be provided throughout the activity or intermittently. 3-Partial/Moderate Assistance-helper does LESS THAN HALF the effort. [place] lifts, holds or supports trunk or limbs, but provides less than half the effort. 2-Substantial/Maximal Assistance-helper does MORE THAN HALF the effort. [place] lifts or holds trunk or limbs and provides more than half the effort. 6-Gwwnnbydq-ikxudb does ALL the effort. Patient does none of the effort to complete the activity. Or, the assistance of 2 or more helpers is required for the patient to complete the activity. If activity was not attempted, code reason: 7-Patient Refused. 9-Not Applicable-not attempted and the patient did not perform the activity before the current illness, exacerbation or injury. 10-Not Attempted due to Environmental Limitations-(lack of equipment, weather restraints, etc.). 88-Not Attempted due to Medical Conditions or Safety Concerns. Roll Left to Right (QC): 5 Sit to Lying (QC): 5 Sit to Stand (QC): 5 Chair/Kuz-ta-Cicvn Xfer(QC): 5 Car Transfer (QC): 3 (min assist to get in/out and cues for sequencing) Gait Training Does the Patient Walk?: Yes Distance: 150' x2 Walk 10 feet (QC): 5 Walk 50 ft with 2 Turns(QC): 5 Walk 150 ft (QC): 5 Walking 10ft/uneven surface-QC: 3 (min assist for balance) Gait Persons Needed: 1 Gait Assistive Device: FWW Wheelchair Training Does the Pt Use a Wheelchair?: No Stair Training Stair Training: Handrails/: 2 handrails 1 Step (curb) (QC): 3 (min assist to step up) 4 Steps (QC): 3 12 Steps (QC): 88 Stairs: Pattern: Step to Balance Picking up an Object (QC): 88 ADL-Treatment Eating (QC): 6 Oral Hygiene (QC): 4 (SBA in stance at sink.) Bathing Location: L Arm, R Arm, L Upper Leg, R Upper Leg, L Lower Leg (in cluding foot), R Lower Leg (including foot), Chest, Abdomen, Buttocks, Perineal Area Shower/Bathe Self (QC): 3 (min A with bottom hygiene, CGA in stance) Upper Body Dressing (QC): 5 (s/u) Lower Body Dressing (QC): 4 (SBA in stance.) On/Off Footwear (QC): 1 (TD on this date due to ETTA bandages and socks.) Toileting Hygiene (QC): 3 (min A for thoroughness.) Toilet Transfer (QC): 4 (CGA) Assessment/Plan Assessment and Plan Assess & Plan/Chief Complaint Assessment: New O2 dependence Debility following Mycoplasma and UTI PHTN Edema Chronic right foot drop uses AFO Edema HTN OAB Plan: IRF protocol Edema treatment with wide etta wraps O2 Much improved (1) Debility (2) COPD (chronic obstructive pulmonary disease) (3) Oxygen dependent (4) Hypoxemia (5) Edema (6) Hypertension (7) H/O mycoplasma pneumonia (8) Hx: UTI (urinary tract infection) (9) Foot drop, right (10) Glaucoma (11) Overactive bladder RIKA BERUMEN DO Jul 06, 2019 05:58
[2019-07-06] MEDS: KCL 10 MEQ TAB (MICRO K) PO SCH (06:13)
[2019-07-06] MEDS: MULTIVIT W/MINERALS TAB (THERAGRAN M) PO SCH (06:13)
[2019-07-06] MEDS: polyethylene glycoL POWDER 17 GM (MIRALAX) PACK PO SCH ×2 (07:40→21:11)
[2019-07-06] MEDS: SENNA W/DOCUSATE (SENOKOT S) TABLET PO SCH ×2 (07:40→21:11)
[2019-07-06] MEDS: ASPIRIN E.C. 81 MG (ECOTRIN) TAB PO SCH (09:03)
[2019-07-06] MEDS: FUROSEMIDE 40 MG (LASIX) TAB PO SCH (09:03)
[2019-07-06] MEDS: LOSARTAN 100 MG (COZAAR) TABLET PO SCH (09:03)
[2019-07-06] MEDS: OXYBUTYNIN (DITROPAN) 5 MG TAB PO SCH ×2 (09:03→21:09)
[2019-07-06] MEDS: CALCIUM CARB + VIT D 600 MG (CALCARB + D) TAB PO SCH (09:03)
[2019-07-06] MEDS: TIMOLOL MALEATE 0.5% 5 ML (TIMOPTIC) BTL OU SCH ×2 (09:04→21:11)
--- NOTE | 2019-07-06 09:11 | Occupational Ther Daily Note ---
OT Current Status-Daily Note Subjective Pt seen in recliner chair, states no pain. Pt slept well last night. Pt readily agreeable to tx this morning. Mental Status/Objective Patient Orientation: Normal For Age Attachments: Oxygen ADL-Treatment Therapy Code Descriptions/Definitions Functional [place] Measure: 0=Not Assessed/NA 4=Minimal Assistance 1=Total Assistance 5=Supervision or Setup 2=Maximal Assistance 6=Modified [place] 3=Moderate Assistance 7=Complete IndependenceSCALE: Activities may be completed with or without assistive devices. 0-Pfgxgwwnww-jusnkpy completes the activity by him/herself with no assistance from a helper. 5-Set-up or Clean-up Assistance-helper sets up or cleans up; patient completes activity. [place] assists only prior to or following the activity. 4-Supervision or Touching Assistance-helper provides verbal cues and/or touching/steadying and/or contact guard assistance as patient completes activit y. Assistance may be provided throughout the activity or intermittently. 3-Partial/Moderate Assistance-helper does LESS THAN HALF the effort. [place] lifts, holds or supports trunk or limbs, but provides less than half the effort. 2-Substantial/Maximal Assistance-helper does MORE THAN HALF the effort. [place] lifts or holds trunk or limbs and provides more than half the effort. 3-Bcnxbdulx-xipagf does ALL the effort. Patient does none of the effort to complete the activity. Or, the assistance of 2 or more helpers is required for the patient to complete the activity. If activity was not attempted, code reason: 7-Patient Refused. 9-Not Applicable-not attempted and the patient did not perform the activity before the current illness, exacerbation or injury. 10-Not Attempted due to Environmental Limitations-(lack of equipment, weather restraints, etc.). 88-Not Attempted due to Medical Conditions or Safety Concerns. Eating (QC): 6 Oral Hygiene (QC): 4 (SUP) Shower/Bathe Self (QC): 4 (SBA in stance. Use of grab bars and shower chair. Pt completes all areas, utilizes LHS for feet.) Upper Body Dressing (QC): 6 Lower Body Dressing (QC): 4 (SBA in stance.) On/Off Footwear: 2 (max A due to use of ETTA bandages.) Toileting Hygiene (QC): 4 (SUP) Toilet Transfer (QC): 4 (SUP) Other Treatment Pt completes sit to stand from recliner with SUP, ambulates to toilet to complete with SUP. Pt showers with SBA in stance, SUP on chair. Pt dresses on chair next to shower. Pt completes oral hygiene/ hair at sink with SUP. Pt returns to recliner, ETTA bandages placed. Pt has skin tear under abdomen-- nursing notified and ointment applied. Pt ambulates to toilet once more, SUP, completes and returns to recliner. Pt left with PT and nurse. All needs met. Education OT Patient Education: Modified ADL techniques, Purpose of tx/functional activities, Safety issues, Use of adapted equipment Teaching Recipient: Patient Teaching Methods: Demonstration, Discussion Response to Teaching: Verbalize Understanding, Return Demonstration OT Short Term Goals Short Term Goals Upper body dressin Lower body dressin OT Detention Goals Director Child Abuse Therapy Goals Time Frame: Jul 16, 2019 Eating (QC): 6 (met) Oral Hygiene (QC): 6 Toileting Hygiene (QC): 6 Shower/Bathe Self (QC): 6 Upper Body Dressing (QC): 6 (met) Lower Body Dressing (QC): 6 On/Off Footwear (QC): 6 Additional Goals: 1-Demonstrate ADL Tasks, 2-Verbalize Understanding, 3- ImproveStrength/Chrissy 1=Demonstrate adherence to instructed precautions during ADL tasks. 2=Patient will verbalize/demonstrate understanding of assistive devices/modifications for ADL. 3=Patient will improve strength/tolerance for activity to enable patient to perform ADL's. OT Education/Plan Problem List/Assessment Assessment: Decreased Activ Tolerance, Decreased UE Strength, Edema, Impaired I ADL's, Impaired Self-Care Skills Discharge Recommendations Plan/Recommendations: Continue POC Therapy Discharge Recommendati: Intermittent Supervision Treatment Plan/Plan of Care Treatment,Training & Education: Yes Patient would benefit from OT for education, treatment and training to promote independence in ADL's, mobility, safety and/or upper extremity function for ADL's. Plan of Care: ADL Retraining, Caregiver Training, Concurrent Therapy, Functional Mobility, Group Exercise/Act as Ind, UE Funct Exercise/Act Treatment Duration: Jul 16, 2019 Frequency: At least 5 of 7 days/Wk (IRF) Estimated Hrs Per Day: 1.5 hours per day Agreement: Yes Rehab Potential: Good Time/GCodes Start Time: 08:00 Stop Time: 09:00 Total Time Billed (hr/min): 60 Billed Treatment Time 1, ADL 4 (60) KODI LEO OTR Jul 06, 2019 09:11
[2019-07-06] MEDS: DOCUSATE SODIUM 100 MG (COLACE) CAP PO SCH ×2 (09:23→21:11)
--- NOTE | 2019-07-06 09:58 | Physical Therapy Daily Note ---
PT Daily Note-Current Subjective Pt agreeable to PT session AM and PM. AM: States she would like to work on stairs and balance today due to concerned with falls backward at times. Pain Numeric Pain Scale: 0-No Pain Appearance AM: Pt in bathroom with OT upon arrival, walked to recliner with FWW and SBA, nurse administered medications. At end of session, pt sitting up in recliner with call light, phone and bedside table within reach. PM: pt sitting up in recliner upon arrival. Pt requesting and assisted to restroom x2 during session. At end of session, pt on toilet with call light cord within reach voicing understanding to call for assist before getting up. Mental Status Patient Orientation: Person, Place, Time, Eyes Open, Situation Attachments: Oxygen (2L) Transfers SCALE: Activities may be completed with or without assistive devices. 0-Iczszqqvgj-nnczwjw completes the activity by him/herself with no assistance from a helper. 5-Set-up or Clean-up Assistance-helper sets up or cleans up; patient completes activity. [place] assists only prior to or following the activity. 4-Supervision or Touching Assistance-helper provides verbal cues and/or touching/steadying and/or contact guard assistance as patient completes activity. Assistance may be provided throughout the activity or intermittently. 3-Partial/Moderate Assistance-helper does LESS THAN HALF the effort. [place] lifts, holds or supports trunk or limbs, but provides less than half the effort. 2-Substantial/Maximal Assistance-helper does MORE THAN HALF the effort. [place] lifts or holds trunk or limbs and provides more than half the effort. 2-Ugwxkbrks-mprozg does ALL the effort. Patient does none of the effort to complete the activity. Or, the assistance of 2 or more helpers is required for the patient to complete the activity. If activity was not attempted, code reason: 7-Patient Refused. 9-Not Applicable-not attempted and the patient did not perform the activity before the current illness, exacerbation or injury. 10-Not Attempted due to Environmental Limitations-(lack of equipment, weather restraints, etc.). 88-Not Attempted due to Medical Conditions or Safety Concerns. Sit to Stand (QC): 5 pt demo good safe techniques with sit to and from stand transfers Weight Bearing Right Lower Extremity: Right Full Weight Bearing Left Lower Extremity: Left Full Weight Bearing Gait Training Does the Patient Walk?: Yes Distance: 150 x2 each AM and PM Walk 10 feet (QC): 4 Walk 50 ft with 2 Turns(QC): 4 Walk 150 ft (QC): 4 Gait Persons Needed: 1 Gait Assistive Device: FWW R foot drop, increased step height with RLE, SOA with distance quickly resolved with pursed lip breathing techniques, no LOB or unsteadiness, able to follow instruction to slightly correct kyphotic posture and fwd head Stair Training Stair Training: Handrails/: 2 handrails #of Steps: 4 (x2 sets with sitting rest break after each) 4 Steps (QC): 4 (x2 sets, CGA and skilled verb inst for sequencing using strong leg first to ascend and weak leg first to descend) Stairs: Pattern: Step to pt states her LLE is stronger and has R foot drop Exercises Standing: Heel/toe raises, Marching, Mini squats, Retro gait (6 laps RUE support only), Sit to Stand, Weight shifts Standing Reps: 20 ((+)static stance on airex x2 min) ex's in // bars standing: x 10 each: with BUE support, UUE support, attempted no UE support but pt too afraid and unable to completely let go of bars except during static stance and did require occasional use NuStep Minutes: 4 NuStep Workload: 10 Treatments education, safety, toileting, transfers, gait, strength, stairs, balance, activity tolerance, functional mobility Assessment Current Status: Good Progress PT Short Term Goals Short Term Goals Time Frame: Jul 09, 2019 Sit to lyin Lying to sitting on side of be: 4 Sit to stand: 4 Walk 150 feet: 4 PT Computer Aided Design Operator Goals Computer Aided Design Operator Goals PT Detention Goals Time Frame: Jul 17, 2019 Roll Left & Right (QC): 6 Sit to Lying (QC): 6 Lying-Sitting on Side/Bed(QC): 6 Sit to Stand (QC): 6 Chair/Qik-yh-Nygyx Xfer(QC): 6 Toilet Transfer (QC): 6 Car Transfer (QC): 5 Does the Patient Walk: Yes Walk 10 feet (QC): 6 Walk 50ft with 2 Turns (QC): 6 Walk 150 ft (QC): 6 Walking 10ft on Uneven Surface: 5 1 Step (curb) (QC): 5 4 Steps (QC): 4 12 Steps (QC): 9 Picking up an Object (QC): 4 Does the Pt use WC or Scooter?: No PT Plan Treatment/Plan Treatment Plan: Continue Plan of Care Treatment Plan: Bed Mobility, Education, Functional Activity Chrissy, Functional Strength, Group Therapy, Gait, Safety, Therapeutic Exercise, Transfers Treatment Duration: Jul 17, 2019 Frequency: Modified Program (IRF) Estimated Hrs Per Day: 1 hour per day (to 1.5 hrs/day) Patient and/or Family Agrees t: Yes Safety Risks/Education Patient Education: Gait Training, Transfer Techniques, Steps, Safety Issues Teaching Recipient: Patient Teaching Methods: Demonstration, Discussion Response to Teaching: Verbalize Understanding, Return Demonstration Time/GCodes Time In: 900 (PM 1330) Time Out: 1000 (PM 1400) Total Billed Treatment Time: 60 (PM 30) Total Billed Treatment AM: 1 visit, FA x10 min, GT x30 min, NM x20 min. PM: 1 visit, GT x13 min, EX x10 min, (FA x7 min (no charge)) VANDANA WHITLOCK HEAD MILLER Jul 06, 2019 09:58
[2019-07-06] MEDS: RT-ADVAIR HFA 115/21 MCG PER PUFF IH SCH ×2 (10:45→21:59)
--- NOTE | 2019-07-06 11:10 | Occupational Ther Daily Note ---
OT Current Status-Daily Note Subjective Pt seen in recliner chair, no pain stated. Pt agreeable to tx with needs of toileting. Mental Status/Objective Patient Orientation: Normal For Age Attachments: Oxygen (2L) ADL-Treatment Therapy Code Descriptions/Definitions Functional [place] Measure: 0=Not Assessed/NA 4=Minimal Assistance 1=Total Assistance 5=Supervision or Setup 2=Maximal Assistance 6=Modified [place] 3=Moderate Assistance 7=Complete IndependenceSCALE: Activities may be completed with or without assistive devices. 9-Medaympwzl-eqrtarx completes the activity by him/herself with no assistance from a helper. 5-Set-up or Clean-up Assistance-helper sets up or cleans up; patient completes activity. [place] assists only prior to or following the activity. 4-Supervision or Touching Assistance-helper provides verbal cues and/or touching/steadying and/or contact guard assistance as patient completes activity. Assistance may be provided throughout the activity or intermittently. 3-Partial/Moderate Assistance-helper does LESS THAN HALF the effort. [place] lifts, holds or supports trunk or limbs, but provides less than half the effort. 2-Substantial/Maximal Assistance-helper does MORE THAN HALF the effort. [place] lifts or holds trunk or limbs and provides more than half the effort. 6-Fatuzzfia-nftktc does ALL the effort. Patient does none of the effort to complete the activity. Or, the assistance of 2 or more helpers is required for the patient to complete the activity. If activity was not attempted, code reason: 7-Patient Refused. 9-Not Applicable-not attempted and the patient did not perform the activity before the current illness, exacerbation or injury. 10-Not Attempted due to Environmental Limitations-(lack of equipment, weather restraints, etc.). 88-Not Attempted due to Medical Conditions or Safety Concerns. Eating (QC): 6 Lower Body Dressing (QC): 4 (s/u for new breifs and pants with hardener helper. SUP) Toileting Hygiene (QC): 4 (SUP) Toilet Transfer (QC): 4 (SUP) Other Treatment Pt completes toileting (sit to stand with SBA, toileting with SUP), pt requires brief change, completes with s/u and SUP.Pt ambulates with walker to gym, completes 7 min of min resistance activity on arm bike with 02/ no rest breaks. Pt returns to room, call light in reach, all needs met. Pt's feet elevated with pillows for increased angle. Education OT Patient Education: Correct positioning, Progress toward Goal/Update tx plan Teaching Recipient: Patient Teaching Methods: Demonstration, Discussion Response to Teaching: Verbalize Understanding, Return Demonstration OT Short Term Goals Short Term Goals Upper body dressin Lower body dressin OT Half-Way Goals Fsr Goals Time Frame: Jul 16, 2019 Eating (QC): 6 (met) Oral Hygiene (QC): 6 Toileting Hygiene (QC): 6 Shower/Bathe Self (QC): 6 Upper Body Dressing (QC): 6 (met) Lower Body Dressing (QC): 6 On/Off Footwear (QC): 6 Additional Goals: 1-Demonstrate ADL Tasks, 2-Verbalize Understanding, 3-Improv eStrength/Chrissy 1=Demonstrate adherence to instructed precautions during ADL tasks. 2=Patient will verbalize/demonstrate understanding of assistive devices/modifications for ADL. 3=Patient will improve strength/tolerance for activity to enable patient to p erform ADL's. OT Education/Plan Problem List/Assessment Assessment: Decreased Activ Tolerance, Edema, Impaired I ADL's, Impaired Self- Care Skills Discharge Recommendations Plan/Recommendations: Continue POC Treatment Plan/Plan of Care Treatment,Training & Education: Yes Patient would benefit from OT for education, treatment and training to promote independence in ADL's, mobility, safety and/or upper extremity function for ADL's. Plan of Care: ADL Retraining, Caregiver Training, Concurrent Therapy, F unctional Mobility, Group Exercise/Act as Ind, UE Funct Exercise/Act Treatment Duration: Jul 16, 2019 Frequency: At least 5 of 7 days/Wk (IRF) Estimated Hrs Per Day: 1.5 hours per day Agreement: Yes Rehab Potential: Good Time/GCodes Start Time: 10:32 Stop Time: 11:02 Total Time Billed (hr/min): 30 Billed Treatment Time 1, ADL, EX (30) KODI LEO OTR Jul 06, 2019 11:10
[2019-07-06 18:00] VITALS: BP 137/75
[2019-07-06] MEDS: ENOXAPARIN 40 MG/0.4 ML (LOVENOX) SYR SC SCH (18:59)
[2019-07-06] MEDS: MONTELUKAST 10 MG (SINGULAIR) TAB PO SCH (21:09)
[2019-07-06] MEDS: LATANOPROST 0.005% (XALATAN) OPHTH SOLN 2.5 ML OU SCH (21:11)
[2019-07-07] MEDS: RT-ALBUTEROL/IPRATROPIUM 3 ML (DUONEB) VIAL INH SCH ×4 (02:26→20:51)
[2019-07-07 05:16] VITALS: BP 159/83
--- NOTE | 2019-07-07 06:02 | PM&R Progress Note ---
Subjective HPI/CC On Admission Date Seen by Provider: Jul 07, 2019 Time Seen by Provider: 06:00 Subjective/Events-last exam Pt doing very well. Slept in a recliner the way she does at home and she is having no concerns Maintained on oxygen and that seems to be helping more and more every day. Bowels are moving. No pain is reported. Lower extremity edema is improved with wide etta wraps. Pt overall doing extremely well. Conferred with RN Reviewed therapy notes Checked meds and labs Review of Systems Pulmonary: Dyspnea Objective Exam Vital Signs Vital Signs Date Time Temp Pulse Resp B/P (MAP) Pulse Ox O2 Delivery O2 Flow Rate FiO2 07/07/19 10:05 97 Nasal Cannula 2.00 07/07/19 05:16 36.3 65 20 159/83 (108) Capillary Refill : Less Than 3 Seconds General Appearance: No Apparent Distress, WD/WN, Chronically ill, Obese HEENT: PERRL/EOMI, Normal ENT Inspection, Pharynx Normal, Moist Mucous Membranes Neck: Full Range of Motion, Normal Inspection, Non Tender, Supple, Carotid Bruit Respiratory: Chest Non Tender, Normal Breath Sounds, No Accessory Muscle Use, No Respiratory Distress, Decreased Breath Sounds Cardiovascular: Regular Rate, Rhythm, No Gallop, No JVD, No Murmur, Normal Peripheral Pulses Gastrointestinal: Normal Bowel Sounds, No Organomegaly, No Pulsatile Mass, Non Tender, Soft Back: Normal Inspection, No CVA Tenderness, No Vertebral Tenderness Extremity: Normal Capillary Refill, Normal Inspection, Normal Range of Motion, Non Tender, No Calf Tenderness, Pedal Edema Neurologic/Psychiatric: Alert, Oriented x3, No Motor/Sensory Deficits, Normal Mood/Affect, swing manager II-XII Norm as Tested, Motor Weakness (generalized, ambulates slowly) Skin: Normal Color, Warm/Dry Lymphatic: No Adenopathy Results/Procedures Lab Patient resulted labs reviewed. FIM Transfers Therapy Code Descriptions/Definitions Functional [place] Measure: 0=Not Assessed/NA 4=Minimal Assistance 1=Total Assistance 5=Supervision or Setup 2=Maximal Assistance 6=Modified [place] 3=Moderate Assistance 7=Complete IndependenceSCALE: Activities may be completed with or without assistive devices. 7-Jkkvkrfbkl-vltqfqr completes the activity by him/herself with no assistance from a helper. 5-Set-up or Clean-up Assistance-helper sets up or cleans up; patient completes activity. [place] assists only prior to or following the activity. 4-Supervision or Touching Assistance-helper provides verbal cues and/or touching/steadying and/or contact guard assistance as patient completes activity. Assistance may be provided throughout the activity or intermittently. 3-Partial/Moderate Assistance-helper does LESS THAN HALF the effort. [place] lifts, holds or supports trunk or limbs, but provides less than half the effort. 2-Substantial/Maximal Assistance-helper does MORE THAN HALF the effort. [place] lifts or holds trunk or limbs and provides more than half the effort. 3-Hkteydkmf-uuozww does ALL the effort. Patient does none of the effort to complete the activity. Or, the assistance of 2 or more helpers is required for the patient to complete the activity. If activity was not attempted, code reason: 7-Patient Refused. 9-Not Applicable-not attempted and the patient did not perform the activity before the current illness, exacerbation or injury. 10-Not Attempted due to Environmental Limitations-(lack of equipment, weather restraints, etc.). 88-Not Attempted due to Medical Conditions or Safety Concerns. Roll Left to Right (QC): 5 Sit to Lying (QC): 5 Sit to Stand (QC): 5 Chair/Ofd-fl-Ettxe Xfer(QC): 5 Car Transfer (QC): 3 (min assist to get in/out and cues for sequencing) Gait Training Does the Patient Walk?: Yes Distance: 150 x2 each AM and PM Walk 10 feet (QC): 4 Walk 50 ft with 2 Turns(QC): 4 Walk 150 ft (QC): 4 Walking 10ft/uneven surface-QC: 3 (min assist for balance) Gait Persons Needed: 1 Gait Assistive Device: FWW Wheelchair Training Does the Pt Use a Wheelchair?: No Stair Training Stair Training: Handrails/: 2 handrails #of Steps: 4 (x2 sets with sitting rest break after each) 1 Step (curb) (QC): 3 (min assist to step up) 4 Steps (QC): 4 (x2 sets, CGA and skilled verb inst for sequencing using strong leg first to ascend and weak leg first to descend) 12 Steps (QC): 88 Stairs: Pattern: Step to Balance Picking up an Object (QC): 88 ADL-Treatment Eating (QC): 6 Oral Hygiene (QC): 4 (SUP) Bathing Location: L Arm, R Arm, L Upper Leg, R Upper Leg, L Lower Leg (including foot), R Lower Leg (including foot), Chest, Abdomen, Buttocks, Perineal Area Shower/Bathe Self (QC): 4 (SBA in stance. Use of grab bars and shower chair. Pt completes all areas, utilizes LHS for feet.) Upper Body Dressing (QC): 6 Lower Body Dressing (QC): 4 (s/u for new breifs and pants with stick welder. SUP) On/Off Footwear (QC): 2 (max A due to use of ETTA bandages.) Toileting Hygiene (QC): 4 (SUP) Toilet Transfer (QC): 4 (SUP) Assessment/Plan Assessment and Plan Assess & Plan/Chief Complaint Assessment: New O2 dependence Debility following Mycoplasma and UTI PHTN Edema Chronic right foot drop uses AFO Edema HTN OAB Plan: IRF protocol Edema treatment with wide etta wraps O2 Much improved Monitor stamina on O2 (1) Debility (2) COPD (chronic obstructive pulmonary disease) (3) Oxygen dependent (4) Hypoxemia (5) Edema (6) Hypertension (7) H/O mycoplasma pneumonia (8) Hx: UTI (urinary tract infection) (9) Foot drop, right (10) Glaucoma (11) Overactive bladder RIKA BERUMEN DO Jul 07, 2019 06:02
[2019-07-07] MEDS: MULTIVIT W/MINERALS TAB (THERAGRAN M) PO SCH (06:39)
[2019-07-07] MEDS: KCL 10 MEQ TAB (MICRO K) PO SCH (06:39)
[2019-07-07] MEDS: FUROSEMIDE 40 MG (LASIX) TAB PO SCH (08:34)
[2019-07-07] MEDS: OXYBUTYNIN (DITROPAN) 5 MG TAB PO SCH ×2 (08:34→20:20)
[2019-07-07] MEDS: polyethylene glycoL POWDER 17 GM (MIRALAX) PACK PO SCH ×2 (08:34→20:19)
[2019-07-07] MEDS: CALCIUM CARB + VIT D 600 MG (CALCARB + D) TAB PO SCH (08:34)
[2019-07-07] MEDS: LOSARTAN 100 MG (COZAAR) TABLET PO SCH (08:34)
[2019-07-07] MEDS: ASPIRIN E.C. 81 MG (ECOTRIN) TAB PO SCH (08:34)
[2019-07-07] MEDS: SENNA W/DOCUSATE (SENOKOT S) TABLET PO SCH ×2 (08:35→20:19)
[2019-07-07] MEDS: DOCUSATE SODIUM 100 MG (COLACE) CAP PO SCH ×2 (08:35→20:20)
[2019-07-07] MEDS: TIMOLOL MALEATE 0.5% 5 ML (TIMOPTIC) BTL OU SCH ×2 (09:00→20:21)
[2019-07-07] MEDS: RT-ADVAIR HFA 115/21 MCG PER PUFF IH SCH ×2 (10:05→20:51)
--- NOTE | 2019-07-07 12:02 | Physical Therapy Daily Note ---
PT Daily Note-Current Subjective Pt denies pain. Pt agreeable to treatment. Mental Status Patient Orientation: Person, Place, Situation Transfers SCALE: Activities may be completed with or without assistive devices. 7-Uoxijaafjn-ljeqfct completes the activity by him/herself with no assistance from a helper. 5-Set-up or Clean-up Assistance-helper sets up or cleans up; patient completes activity. [place] assists only prior to or following the activity. 4-Supervision or Touching Assistance-helper provides verbal cues and/or touchi ng/steadying and/or contact guard assistance as patient completes activity. Assistance may be provided throughout the activity or intermittently. 3-Partial/Moderate Assistance-helper does LESS THAN HALF the effort. [place] lifts, holds or supports trunk or limbs, but provides less than half the effort. 2-Substantial/Maximal Assistance-helper does MORE THAN HALF the effort. [place] lifts or holds trunk or limbs and provides more than half the effort. 8-Wcvinowoa-rzcxnx does ALL the effort. Patient does none of the effort to complete the activity. Or, the assistance of 2 or more helpers is required for the patient to complete the activity. If activity was not attempted, code reason: 7-Patient Refused. 9-Not Applicable-not attempted and the patient did not perform the activity before the current illness, exacerbation or injury. 10-Not Attempted due to Environmental Limitations-(lack of equipment, weather restraints, etc.). 88-Not Attempted due to Medical Conditions or Safety Concerns. Weight Bearing Right Lower Extremity: Right Full Weight Bearing Left Lower Extremity: Left Full Weight Bearing Gait Training Gait Assistive Device: FWW PT amb with FWW 2 x 120ft, CGA-SBA Exercises NuStep Minutes: 5 NuStep Workload: 4 Assessment Current Status: Good Progress Pt back to bedside chair post therapy session with call light and all needs met. Legs elevated on pillows. PT Short Term Goals Short Term Goals Time Frame: Jul 09, 2019 Sit to lyin Lying to sitting on side of be: 4 Sit to stand: 4 Walk 150 feet: 4 PT Bending Machine Set Up Operator Goals Bending Machine Set Up Operator Goals PT Bending Machine Set Up Operator Goals Time Frame: Jul 17, 2019 Roll Left & Right (QC): 6 Sit to Lying (QC): 6 Lying-Sitting on Side/Bed(QC): 6 Sit to Stand (QC): 6 Chair/Qxi-bo-Zsrog Xfer(QC): 6 Toilet Transfer (QC): 6 Car Transfer (QC): 5 Does the Patient Walk: Yes Walk 10 feet (QC): 6 Walk 50ft with 2 Turns (QC): 6 Walk 150 ft (QC): 6 Walking 10ft on Uneven Surface: 5 1 Step (curb) (QC): 5 4 Steps (QC): 4 12 Steps (QC): 9 Picking up an Object (QC): 4 Does the Pt use WC or Scooter?: No PT Plan Treatment/Plan Treatment Plan: Continue Plan of Care Treatment Plan: Bed Mobility, Education, Functional Activity Chrissy, Functional Strength, Group Therapy, Gait, Safety, Therapeutic Exercise, Transfers Treatment Duration: Jul 17, 2019 Frequency: Modified Program (IRF) Estimated Hrs Per Day: 1 hour per day (to 1.5 hrs/day) Patient and/or Family Agrees t: Yes Time/GCodes Time In: 843 Time Out: 900 Total Billed Treatment Time: 17 Total Billed Treatment 1, gait 10min, ther ex 7 min BJ OLIVER Jul 07, 2019 12:02
[2019-07-07 16:00] VITALS: BP 127/78
--- NOTE | 2019-07-07 16:22 | Cardiology Progress Note ---
Subjective Date Seen by Provider: Jul 07, 2019 Time Seen by Provider: 15:00 Subjective/Events-last exam Patient was seen and evaluated, sitting in a chair, feeling better, reporting improvement in her symptoms Review of Systems General: No Chills, No Night Sweats; Fatigue; No Malaise, No Appetite, No Other HEENT: No Head Aches, No Visual Changes, No Eye Pain, No Ear Pain, No Dy sphasia, No Sinus Congestion, No Post Nasal Drip, No Sore Throat, No Other Pulmonary: Dyspnea; No Cough, No Pleuritic Chest Pain, No Other Cardiovascular: Edema; No: Chest Pain, Palpitations, Orthopnea, Paroxysmal Noc. Dyspnea, Lt Headedness, Other Objective-Cardiology Exam Last Set of Vital Signs Vital Signs 07/07/19 07/07/19 05:16 15:15 Temp 36.3 Pulse 65 Resp 20 B/P (MAP) 159/83 (108) Pulse Ox 95 O2 Delivery Nasal Cannula O2 Flow Rate 2.00 Capillary Refill : Less Than 3 Seconds I&O Intake and Output 07/07/19 00:00 Intake Total 1500 ml Balance 1500 ml Intake Oral 1500 ml # Voids 4 General: Alert, Oriented X3, Cooperative HEENT: Atraumatic, PERRLA Neck: Supple, No JVD, No Thyromegaly Lungs: Clear to Auscultation, Normal Air Movement Heart: Regular Rate, Normal S1, Normal S2, No Murmurs Abdomen: Normal Bowel Sounds, Soft, No Tenderness, No Hepatosplenomegaly, No Masses Extremities: No Clubbing, No Cyanosis, No Edema, Normal Pulses, No Tenderness/Swelling Skin: No Rashes, No Breakdown, No Significant Lesion Neuro: Normal Gait, Normal Speech, Strength at 5/5 X4 Ext, Normal Tone, Sensation Intact Psych/Mental Status: Mental Status NL, Mood NL A/P-Cardiology Admission Diagnosis Shortness of breath Pulmonary hypertension Hypertension Sinus bradycardia Assessment/Plan Shortness of breath, reporting improvement. Continue to monitor Elevated liver enzymes, unknown etiology, improving slowly, continue to monitor, managed by primary care physician Pulmonary hypertension, severe, probably due to COPD, venous doppler negative for DVT. Bradycardia, history of sinus bradycardia in the past, currently asymptomatic. Continue to monitor heart rate and blood pressure Hypertension, maintained on losartan as an outpatient,continue to monitor. Recent pneumonia, managed by primary care physician Debility and shortness of breath, starting physical therapy Clinical Quality Measures DVT/VTE Risk/Contraindication: Risk Factor Score Per Nursin RFS Level Per Nursing on Admit: 4+=Very High CRUZ DANIELS MD Jul 07, 2019 16:22
[2019-07-07 18:00] VITALS: BP 135/70
[2019-07-07] MEDS: ENOXAPARIN 40 MG/0.4 ML (LOVENOX) SYR SC SCH (18:43)
[2019-07-07] MEDS: MONTELUKAST 10 MG (SINGULAIR) TAB PO SCH (20:19)
[2019-07-07] MEDS: LATANOPROST 0.005% (XALATAN) OPHTH SOLN 2.5 ML OU SCH (20:21)
[2019-07-08] MEDS: RT-ALBUTEROL/IPRATROPIUM 3 ML (DUONEB) VIAL INH SCH ×4 (03:15→21:12)
[2019-07-08 06:00] VITALS: BP 137/82
[2019-07-08] MEDS: MULTIVIT W/MINERALS TAB (THERAGRAN M) PO SCH (06:43)
[2019-07-08] MEDS: KCL 10 MEQ TAB (MICRO K) PO SCH (06:43)
[2019-07-08] MEDS: OXYBUTYNIN (DITROPAN) 5 MG TAB PO SCH ×2 (08:51→20:37)
[2019-07-08] MEDS: ASPIRIN E.C. 81 MG (ECOTRIN) TAB PO SCH (08:51)
[2019-07-08] MEDS: LOSARTAN 100 MG (COZAAR) TABLET PO SCH (08:51)
[2019-07-08] MEDS: SENNA W/DOCUSATE (SENOKOT S) TABLET PO SCH ×2 (08:52→20:38)
[2019-07-08] MEDS: DOCUSATE SODIUM 100 MG (COLACE) CAP PO SCH ×2 (08:52→20:13)
[2019-07-08] MEDS: FUROSEMIDE 40 MG (LASIX) TAB PO SCH (08:52)
[2019-07-08] MEDS: TIMOLOL MALEATE 0.5% 5 ML (TIMOPTIC) BTL OU SCH ×2 (08:52→20:37)
[2019-07-08] MEDS: polyethylene glycoL POWDER 17 GM (MIRALAX) PACK PO SCH ×2 (08:52→20:13)
[2019-07-08] MEDS: CALCIUM CARB + VIT D 600 MG (CALCARB + D) TAB PO SCH (08:53)
[2019-07-08] MEDS: RT-ADVAIR HFA 115/21 MCG PER PUFF IH SCH ×2 (09:49→21:12)
--- NOTE | 2019-07-08 11:28 | Cardiology Progress Note ---
Subjective Date Seen by Provider: Jul 08, 2019 Time Seen by Provider: 11:27 Subjective/Events-last exam Patient is sitting in a chair, feeling better. No new complaint Review of Systems General: No Chills, No Night Sweats; Fatigue, Malaise; No Appetite, No Other HEENT: No Head Aches, No Visual Changes, No Eye Pain, No Ear Pain, No Dysphasia, No Sinus Congestion, No Post Nasal Drip, No Sore Throat, No Other Pulmonary: No Dyspnea, No Cough, No Pleuritic Chest Pain, No Other Cardiovascular: Edema; No: Chest Pain, Palpitations, Orthopnea, Paroxysmal Noc. Dyspnea, Lt Headedness, Other Objective-Cardiology Exam Last Set of Vital Signs Vital Signs 07/08/19 07/08/19 06:00 09:49 Temp 36.9 Pulse 77 Resp 18 B/P (MAP) 137/82 (100) Pulse Ox 95 O2 Delivery Nasal Cannula O2 Flow Rate 2.00 Capillary Refill : Less Than 3 Seconds I&O Intake and Output 07/08/19 00:00 Intake Total 1450 ml Balance 1450 ml Intake Oral 1450 ml # Voids 5 # Bowel Movements 1 General: Alert, Oriented X3, Cooperative HEENT: Atraumatic, PERRLA Neck: Supple, No JVD, No Thyromegaly Lungs: Clear to Auscultation, Normal Air Movement Heart: Regular Rate, Normal S1, Normal S2, No Murmurs Abdomen: Normal Bowel Sounds, Soft, No Tenderness, No Hepatosplenomegaly, No Masses Extremities: No Clubbing, No Cyanosis, No Edema, Normal Pulses, No Tenderness/Swelling Skin: No Rashes, No Breakdown, No Significant Lesion Neuro: Normal Gait, Normal Speech, Strength at 5/5 X4 Ext, Normal Tone, Sensation Intact Psych/Mental Status: Mental Status NL, Mood NL A/P-Cardiology Admission Diagnosis Shortness of breath Pulmonary hypertension Hypertension Sinus bradycardia Assessment/Plan Shortness of breath, reporting improvement. Continue to monitor Elevated liver enzymes, unknown etiology, improving slowly, continue to monitor, managed by primary care physician Pulmonary hypertension, severe, probably due to COPD, venous doppler negative for DVT. Bradycardia, history of sinus bradycardia in the past, currently asymptomatic. Continue to monitor heart rate and blood pressure Hypertension, maintained on losartan as an outpatient,continue to monitor. Recent pneumonia, managed by primary care physician Debility and shortness of breath, starting physical therapy Clinical Quality Measures DVT/VTE Risk/Contraindication: Risk Factor Score Per Nursin RFS Level Per Nursing on Admit: 4+=Very High CRUZ DANIELS MD Jul 08, 2019 11:28
--- NOTE | 2019-07-08 15:30 | PM&R Progress Note ---
Subjective HPI/CC On Admission Date Seen by Provider: Jul 08, 2019 Time Seen by Provider: 11:30 Subjective/Events-last exam Pt doing very well. Slept in a recliner the way she does at home and she is having no concerns Maintained on oxygen 24/7 Bowels are moving. No pain is reported. Lower extremity edema is improved with wide etta wraps. Pt overall doing extremely well. Conferred with RN Reviewed therapy notes Checked meds and labs Review of Systems General: Fatigue Pulmonary: Dyspnea Cardiovascular: Edema Objective Exam Vital Signs Vital Signs Date Time Temp Pulse Resp B/P (MAP) Pulse Ox O2 Delivery O2 Flow Rate FiO2 07/08/19 09:49 95 Nasal Cannula 2.00 07/08/19 06:00 36.9 77 18 137/82 (100) Capillary Refill : Less Than 3 Seconds General Appearance: No Apparent Distress, WD/WN, Chronically ill, Obese HEENT: PERRL/EOMI, Normal ENT Inspection, Pharynx Normal, Moist Mucous Membranes Neck: Full Range of Motion, Normal Inspection, Non Tender, Supple, Carotid Bruit Respiratory: Chest Non Tender, Normal Breath Sounds, No Accessory Muscle Use, No Respiratory Distress, Decreased Breath Sounds Cardiovascular: Regular Rate, Rhythm, No Gallop, No JVD, No Murmur, Normal Janneth pheral Pulses Gastrointestinal: Normal Bowel Sounds, No Organomegaly, No Pulsatile Mass, Non Tender, Soft Back: Normal Inspection, No CVA Tenderness, No Vertebral Tenderness Extremity: Normal Capillary Refill, Normal Inspection, Normal Range of Motion, Non Tender, No Calf Tenderness, Pedal Edema Neurologic/Psychiatric: Alert, Oriented x3, No Motor/Sensory Deficits, Normal Mood/Affect, batterboard setter II-XII Norm as Tested, Motor Weakness (generalized, ambulates slowly) Skin: Normal Color, Warm/Dry Lymphatic: No Adenopathy Results/Procedures Lab Patient resulted labs reviewed. FIM Transfers Therapy Code Descriptions/Definitions Functional [place] Measure: 0=Not Assessed/NA 4=Minimal Assistance 1=Total Assistance 5=Supervision or Setup 2=Maximal Assistance 6=Modified [place] 3=Moderate Assistance 7=Complete IndependenceSCALE: Activities may be completed with or without assistive devices. 0-Djaiwrlfgr-jxibyor completes the activity by him/herself with no assistance from a helper. 5-Set-up or Clean-up Assistance-helper sets up or cleans up; patient completes activity. [place] assists only prior to or following the activity. 4-Supervision or Touching Assistance-helper provides verbal cues and/or touching/steadying and/or contact guard assistance as patient completes activity. Assistance may be provided throughout the activity or intermittently. 3-Partial/Moderate Assistance-helper does LESS THAN HALF the effort. [place] lifts, holds or supports trunk or limbs, but provides less than half the effort. 2-Substantial/Maximal Assistance-helper does MORE THAN HALF the effort. [place] lifts or holds trunk or limbs and provides more than half the effort. 1-Vidhdaowg-agfurf does ALL the effort. Patient does none of the effort to comp lete the activity. Or, the assistance of 2 or more helpers is required for the patient to complete the activity. If activity was not attempted, code reason: 7-Patient Refused. 9-Not Applicable-not attempted and the patient did not perform the activity before the current illness, exacerbation or injury. 10-Not Attempted due to Environmental Limitations-(lack of equipment, weather restraints, etc.). 88-Not Attempted due to Medical Conditions or Safety Concerns. Roll Left to Right (QC): 5 Sit to Lying (QC): 5 Sit to Stand (QC): 5 Chair/Qhr-gs-Dshdu Xfer(QC): 5 Car Transfer (QC): 3 (min assist to get in/out and cues for sequencing) Gait Training Does the Patient Walk?: Yes Distance: 150 x2 each AM and PM Walk 10 feet (QC): 4 Walk 50 ft with 2 Turns(QC): 4 Walk 150 ft (QC): 4 Walking 10ft/uneven surface-QC: 3 (min assist for balance) Gait Persons Needed: 1 Gait Assistive Device: FWW Wheelchair Training Does the Pt Use a Wheelchair?: No Stair Training Stair Training: Handrails/: 2 handrails #of Steps: 4 (x2 sets with sitting rest break after each) 1 Step (curb) (QC): 3 (min assist to step up) 4 Steps (QC): 4 (x2 sets, CGA and skilled verb inst for sequencing using strong leg first to ascend and weak leg first to descend) 12 Steps (QC): 88 Stairs: Pattern: Step to Balance Picking up an Object (QC): 88 ADL-Treatment Eating (QC): 6 Oral Hygiene (QC): 4 (SUP) Bathing Location: L Arm, R Arm, L Upper Leg, R Upper Leg, L Lower Leg (including foot), R Lower Leg (including foot), Chest, Abdomen, Buttocks, Perineal Area Shower/Bathe Self (QC): 4 (SBA in stance. Use of grab bars and shower chair. Pt completes all areas, utilizes LHS for feet.) Upper Body Dressing (QC): 6 Lower Body Dressing (QC): 4 (s/u for new breifs and pants with brick handler. SUP) On/Off Footwear (QC): 2 (max A due to use of ETTA bandages.) Toileting Hygiene (QC): 4 (SUP) Toilet Transfer (QC): 4 (SUP) Assessment/Plan Assessment and Plan Assess & Plan/Chief Complaint Assessment: New O2 dependence Debility following Mycoplasma and UTI PHTN Edema Chronic right foot drop uses AFO Edema HTN OAB Crackles on lung bases Plan: IRF protocol Edema treatment with wide etta wraps O2 Much improved Monitor stamina on O2 IS (1) Debility (2) COPD (chronic obstructive pulmonary disease) (3) Oxygen dependent (4) Hypoxemia (5) Edema (6) Hypertension (7) H/O mycoplasma pneumonia (8) Hx: UTI (urinary tract infection) (9) Foot drop, right (10) Glaucoma (11) Overactive bladder RIKA BERUMEN DO Jul 08, 2019 15:30
[2019-07-08 17:04] VITALS: BP 143/75
[2019-07-08] MEDS: ENOXAPARIN 40 MG/0.4 ML (LOVENOX) SYR SC SCH (18:33)
[2019-07-08] MEDS: LATANOPROST 0.005% (XALATAN) OPHTH SOLN 2.5 ML OU SCH (20:37)
[2019-07-08] MEDS: MONTELUKAST 10 MG (SINGULAIR) TAB PO SCH (20:37)
[2019-07-09 06:00] VITALS: BP 159/60
[2019-07-09] MEDS: KCL 10 MEQ TAB (MICRO K) PO SCH (06:14)
[2019-07-09] MEDS: MULTIVIT W/MINERALS TAB (THERAGRAN M) PO SCH (06:14)
[2019-07-09 06:59] LABS: HEMOGLOBIN 13.1 G/DL (11.5-16.0); RED CELL DISTRIBUTION WIDTH 13.6 % (10.0-14.5); WHITE BLOOD COUNT 9.1 10^3/uL (4.3-11.0)
[2019-07-09 07:15] LABS: ALBUMIN 3.7 GM/DL (3.2-4.5); BILIRUBIN,TOTAL 0.5 MG/DL (0.1-1.0); CALCIUM 9.5 MG/DL (8.5-10.1); CREATININE SERUM 1.11 MG/DL (0.60-1.30); POTASSIUM 4.5 MMOL/L (3.6-5.0); TOTAL PROTEIN 7.5 GM/DL (6.4-8.2)
--- NOTE | 2019-07-09 08:45 | Cardiology Progress Note ---
Subjective Date Seen by Provider: Jul 09, 2019 Time Seen by Provider: 08:43 Subjective/Events-last exam Patient sitting up in chair, no new complaints. Denies any chest pain or dyspnea. Review of Systems General: No Chills, No Night Sweats, No Fatigue, No Malaise, No Appetite, No Other HEENT: No Head Aches, No Visual Changes, No Eye Pain, No Ear Pain, No Dysphasia, No Sinus Congestion, No Post Nasal Drip, No Sore Throat, No Other Pulmonary: No Dyspnea, No Cough, No Pleuritic Chest Pain, No Other Cardiovascular: No: Chest Pain, Palpitations, Orthopnea, Paroxysmal Noc. Dyspnea, Edema, Lt Headedness, Other Objective-Cardiology Exam Last Set of Vital Signs Vital Signs 07/09/19 07/09/19 06:00 09:00 Temp 36.7 Pulse 87 Resp 20 B/P (MAP) 159/60 (93) Pulse Ox 95 O2 Delivery Nasal Cannula O2 Flow Rate 2.00 Capillary Refill : Less Than 3 Seconds I&O Intake and Output 07/09/19 00:00 Intake Total 1800 ml Balance 1800 ml Intake Oral 1800 ml # Voids 7 # Bowel Movements 1 General: Alert, Oriented X3, Cooperative HEENT: Atraumatic, PERRLA Neck: Supple, No JVD, No Thyromegaly Lungs: Clear to Auscultation, Normal Air Movement Heart: Regular Rate, Normal S1, Normal S2, No Murmurs Abdomen: Normal Bowel Sounds, Soft, No Tenderness, No Hepatosplenomegaly, No Masses Extremities: No Clubbing, No Cyanosis, No Edema, Normal Pulses, No Tenderness/Swelling Skin: No Rashes, No Breakdown, No Significant Lesion Neuro: Normal Gait, Normal Speech, Strength at 5/5 X4 Ext, Normal Tone, Sensation Intact Psych/Mental Status: Mental Status NL, Mood NL Results Lab Laboratory Tests 07/09/19 06:45 A/P-Cardiology Admission Diagnosis Shortness of breath Pulmonary hypertension Hypertension Sinus bradycardia Assessment/Plan Shortness of breath, reporting improvement. Continue to monitor Elevated liver enzymes, unknown etiology, improving slowly, continue to monitor, managed by primary care physician Pulmonary hypertension, severe, probably due to COPD, venous doppler negative for DVT. Bradycardia, history of sinus bradycardia in the past, currently asymptomatic. Continue to monitor heart rate and blood pressure Hypertension, controlled. ,continue to monitor. Recent pneumonia, managed by primary care physician Peripheral edema- discussed limiting salt in her diet. Debility and shortness of breath, starting physical therapy Patient was seen and evaluated with Jillian, examination performed, management plan was discussed, agree with the current scribed note, I made few changes to the note using Italic font Patient is feeling better. No new complaint, edema is better Clinical Quality Measures DVT/VTE Risk/Contraindication: Risk Factor Score Per Nursin RFS Level Per Nursing on Admit: 4+=Very High JILLIAN BEST Jul 09, 2019 08:44 CRUZ DANIELS MD Jul 09, 2019 12:09
[2019-07-09] MEDS: RT-ADVAIR HFA 115/21 MCG PER PUFF IH SCH ×2 (09:00→21:27)
[2019-07-09] MEDS: RT-ALBUTEROL/IPRATROPIUM 3 ML (DUONEB) VIAL INH SCH ×3 (09:00→21:27)
[2019-07-09] MEDS: SENNA W/DOCUSATE (SENOKOT S) TABLET PO SCH ×2 (09:21→20:31)
[2019-07-09] MEDS: DOCUSATE SODIUM 100 MG (COLACE) CAP PO SCH ×2 (09:21→20:31)
[2019-07-09] MEDS: LOSARTAN 100 MG (COZAAR) TABLET PO SCH (09:21)
[2019-07-09] MEDS: FUROSEMIDE 40 MG (LASIX) TAB PO SCH (09:22)
[2019-07-09] MEDS: OXYBUTYNIN (DITROPAN) 5 MG TAB PO SCH ×2 (09:22→20:30)
[2019-07-09] MEDS: TIMOLOL MALEATE 0.5% 5 ML (TIMOPTIC) BTL OU SCH ×2 (09:22→20:44)
[2019-07-09] MEDS: ASPIRIN E.C. 81 MG (ECOTRIN) TAB PO SCH (09:22)
[2019-07-09] MEDS: polyethylene glycoL POWDER 17 GM (MIRALAX) PACK PO SCH ×2 (09:25→20:44)
[2019-07-09] MEDS: CALCIUM CARB + VIT D 600 MG (CALCARB + D) TAB PO SCH (09:25)
--- NOTE | 2019-07-09 09:50 | PM&R Progress Note ---
Subjective HPI/CC On Admission Date Seen by Provider: Jul 09, 2019 Time Seen by Provider: 09:30 Subjective/Events-last exam SCDs really helped the edema last night Home O2 will be set up from [employer] with the test done at [facility] Last BM was the and she did take her stool softeners and everything today Labs are stable Remains on 2 liters of O2 Lower extremity edema is improved with wide etta wraps. Pt overall doing extremely well. Conferred with RN Reviewed therapy notes Checked meds and labs Review of Systems General: Fatigue Pulmonary: Dyspnea Cardiovascular: Edema Objective Exam Vital Signs Vital Signs Date Time Temp Pulse Resp B/P (MAP) Pulse Ox O2 Delivery O2 Flow Rate FiO2 07/09/19 17:26 36.7 84 18 125/55 (78) 94 Nasal Cannula 2.00 Capillary Refill : Less Than 3 Seconds General Appearance: No Apparent Distress, WD/WN, Chronically ill, Obese HEENT: PERRL/EOMI, Normal ENT Inspection, Pharynx Normal, Moist Mucous Membranes Neck: Full Range of Motion, Normal Inspection, Non Tender, Supple, Carotid Bruit Respiratory: Chest Non Tender, Normal Breath Sounds, No Accessory Muscle Use, No Respiratory Distress, Decreased Breath Sounds Cardiovascular: Regular Rate, Rhythm, No Gallop, No JVD, No Murmur, Normal Peripheral Pulses Gastrointestinal: Normal Bowel Sounds, No Organomegaly, No Pulsatile Mass, Non Tender, Soft Back: Normal Inspection, No CVA Tenderness, No Vertebral Tenderness Extremity: Normal Capillary Refill, Normal Inspection, Normal Range of Motion, Non Tender, No Calf Tenderness, Pedal Edema Neurologic/Psychiatric: Alert, Oriented x3, No Motor/Sensory Deficits, Normal Mood/Affect, lumber puller II-XII Norm as Tested, Motor Weakness (generalized, ambulates slowly) Skin: Normal Color, Warm/Dry Lymphatic: No Adenopathy Results/Procedures Lab Laboratory Tests 07/09/19 06:45 Patient resulted labs reviewed. FIM Transfers Therapy Code Descriptions/Definitions Functional [place] Measure: 0=Not Assessed/NA 4=Minimal Assistance 1=Total Assistance 5=Supervision or Setup 2=Maximal Assistance 6=Modified [place] 3=Moderate Assistance 7=Complete IndependenceSCALE: Activities may be completed with or without assistive devices. 4-Kzamuqqkdn-hmyftjo completes the activity by him/herself with no assistance from a helper. 5-Set-up or Clean-up Assistance-helper sets up or cleans up; patient completes activity. [place] assists only prior to or following the activity. 4-Supervision or Touching Assistance-helper provides verbal cues and/or touching/steadying and/or contact guard assistance as patient completes acti vity. Assistance may be provided throughout the activity or intermittently. 3-Partial/Moderate Assistance-helper does LESS THAN HALF the effort. [place] lifts, holds or supports trunk or limbs, but provides less than half the effort. 2-Substantial/Maximal Assistance-helper does MORE THAN HALF the effort. [place] lifts or holds trunk or limbs and provides more than half the effort. 5-Pralgwkya-qckyya does ALL the effort. Patient does none of the effort to complete the activity. Or, the assistance of 2 or more helpers is required for the patient to complete the activity. If activity was not attempted, code reason: 7-Patient Refused. 9-Not Applicable-not attempted and the patient did not perform the activity before the current illness, exacerbation or injury. 10-Not Attempted due to Environmental Limitations-(lack of equipment, weather restraints, etc.). 88-Not Attempted due to Medical Conditions or Safety Concerns. Roll Left to Right (QC): 5 Sit to Lying (QC): 5 Sit to Stand (QC): 5 Chair/Yyq-ej-Jeamx Xfer(QC): 5 Car Transfer (QC): 3 (min assist to get in/out and cues for sequencing) Gait Training Does the Patient Walk?: Yes Distance: 150 x2 each AM and PM Walk 10 feet (QC): 4 Walk 50 ft with 2 Turns(QC): 4 Walk 150 ft (QC): 4 Walking 10ft/uneven surface-QC: 3 (min assist for balance) Gait Persons Needed: 1 Gait Assistive Device: FWW Wheelchair Training Does the Pt Use a Wheelchair?: No Stair Training Stair Training: Handrails/: 2 handrails #of Steps: 4 (x2 sets with sitting rest break after each) 1 Step (curb) (QC): 3 (min assist to step up) 4 Steps (QC): 4 (x2 sets, CGA and skilled verb inst for sequencing using strong leg first to ascend and weak leg first to descend) 12 Steps (QC): 88 Stairs: Pattern: Step to Balance Picking up an Object (QC): 88 ADL-Treatment Eating (QC): 6 Oral Hygiene (QC): 4 (SUP) Bathing Location: L Arm, R Arm, L Upper Leg, R Upper Leg, L Lower Leg (including foot), R Lower Leg (including foot), Chest, Abdomen, Buttocks, Perineal Area Shower/Bathe Self (QC): 4 (SBA in stance. Use of grab bars and shower chair. Pt completes all areas, utilizes LHS for feet.) Upper Body Dressing (QC): 6 Lower Body Dressing (QC): 4 (s/u for new breifs and pants with senior project controls specialist. SUP) On/Off Footwear (QC): 2 (max A due to use of ETTA bandages.) Toileting Hygiene (QC): 4 (SUP) Toilet Transfer (QC): 4 (SUP) Assessment/Plan Assessment and Plan Assess & Plan/Chief Complaint Assessment: New O2 dependence Debility following Mycoplasma and UTI PHTN Edema Chronic right foot drop uses AFO Edema HTN OAB Crackles on lung bases Plan: IRF protocol Edema treatment with wide etta wraps O2 Much improved Monitor stamina on O2 IS (1) Debility (2) COPD (chronic obstructive pulmonary disease) (3) Oxygen dependent (4) Hypoxemia (5) Edema (6) Hypertension (7) H/O mycoplasma pneumonia (8) Hx: UTI (urinary tract infection) (9) Foot drop, right (10) Glaucoma (11) Overactive bladder RIKA BERUMEN DO Jul 09, 2019 09:49
--- NOTE | 2019-07-09 10:03 | Physical Therapy Daily Note ---
PT Daily Note-Current Subjective Pt. agrees to Rx. States she has 5 steps to get in to get in to her house. States she will go home on extended O2 tubing and has never used it herself but her late did and she has watched him do it for years Pain Location: No Pain Reported Mental Status Patient Orientation: Normal For Age Attachments: Oxygen (L) Transfers SCALE: Activities may be completed with or without assistive devices. 5-Yeevroifzf-luxuhwt completes the activity by him/herself with no assistance from a helper. 5-Set-up or Clean-up Assistance-helper sets up or cleans up; patient completes activity. [place] assists only prior to or following the activity. 4-Supervision or Touching Assistance-helper provides verbal cues and/or touching/steadying and/or contact guard assistance as patient completes activity. Assistance may be provided throughout the activity or intermittently. 3-Partial/Moderate Assistance-helper does LESS THAN HALF the effort. [place] lifts, holds or supports trunk or limbs, but provides less than half the effort. 2-Substantial/Maximal Assistance-helper does MORE THAN HALF the effort. [place] lifts or holds trunk or limbs and provides more than half the effort. 7-Irmukdpcz-cajoss does ALL the effort. Patient does none of the effort to complete the activity. Or, the assistance of 2 or more helpers is required for the patient to complete the activity. If activity was not attempted, code reason: 7-Patient Refused. 9-Not Applicable-not attempted and the patient did not perform the activity before the current illness, exacerbation or injury. 10-Not Attempted due to Environmental Limitations-(lack of equipment, weather restraints, etc.). 88-Not Attempted due to Medical Conditions or Safety Concerns. Sit to Stand (QC): 5 Chair/Yyn-pa-Zsezy Xfer(QC): 5 Toilet Transfer (QC): 6 Pt. sleeps in her recliner at home and resists laying flat secondary to back pain Weight Bearing Right Lower Extremity: Right Full Weight Bearing Left Lower Extremity: Left Full Weight Bearing Gait Training Does the Patient Walk?: Yes Walk 10 feet (QC): 6 Walk 50 ft with 2 Turns(QC): 6 Walk 150 ft (QC): 6 Gait Persons Needed: 1 Gait Assistive Device: FWW pt. manages gait SBA to mod I but had instruction and education and training this date for extended O2 tubing safety etc Exercises Seated Therapy Exercises: Ankle pumps, Sit to stand, Long arc quads, Hip flexion, Hip abd/add Seated Reps: 20 NuStep Minutes: 10 NuStep Workload: 3 Treatments toileted x 2 during Rx, managing clean up and clothing indepnustep for functional training and improved functional activity tolerance Assessment Current Status: Good Progress PT Short Term Goals Short Term Goals Time Frame: Jul 09, 2019 Sit to lyin Lying to sitting on side of be: 4 Sit to stand: 4 Walk 150 feet: 4 PT Intermediate Goals Corrugated Fastener Driver Goals PT Corrugated Fastener Driver Goals Time Frame: Jul 17, 2019 Roll Left & Right (QC): 6 Sit to Lying (QC): 6 Lying-Sitting on Side/Bed(QC): 6 Sit to Stand (QC): 6 Chair/Dlt-gx-Moran Xfer(QC): 6 Toilet Transfer (QC): 6 Car Transfer (QC): 5 Does the Patient Walk: Yes Walk 10 feet (QC): 6 Walk 50ft with 2 Turns (QC): 6 Walk 150 ft (QC): 6 Walking 10ft on Uneven Surface: 5 1 Step (curb) (QC): 5 4 Steps (QC): 4 12 Steps (QC): 9 Picking up an Object (QC): 4 Does the Pt use WC or Scooter?: No PT Plan Treatment/Plan Treatment Plan: Continue Plan of Care Treatment Plan: Bed Mobility, Education, Functional Activity Chrissy, Functional Strength, Group Therapy, Gait, Safety, Therapeutic Exercise, Transfers Treatment Duration: Jul 17, 2019 Frequency: Modified Program (IRF) Estimated Hrs Per Day: 1 hour per day (to 1.5 hrs/day) Patient and/or Family Agrees t: Yes Safety Risks/Education Patient Education: Gait Training, Transfer Techniques, Correct Positioning, Disease Process, Safety Issues Teaching Recipient: Patient Teaching Methods: Demonstration, Discussion Response to Teaching: Verbalize Understanding, Return Demonstration, Reinforcement Needed Time/GCodes Time In: 900 Time Out: 1000 Total Billed Treatment Time: 60 Total Billed Treatment 1,EX25m,GT20m,FA15m DERIAN MERCADO HAND THERMAL CUTTER Jul 09, 2019 10:03
--- NOTE | 2019-07-09 10:10 | Occupational Ther Daily Note ---
OT Current Status-Daily Note Subjective Pt seen in recliner. Pt agreeable to OT tx session. Pt states "long weekend", no pain. Pt seen in recliner 2nd session, agreeable to tx, denies pain, denies use of restroom until later. Mental Status/Objective Patient Orientation: Normal For Age Attachments: Oxygen ADL-Treatment Therapy Code Descriptions/Definitions Functional [place] Measure: 0=Not Assessed/NA 4=Minimal Assistance 1=Total Assistance 5=Supervision or Setup 2=Maximal Assistance 6=Modified [place] 3=Moderate Assistance 7=Complete IndependenceSCALE: Activities may be completed with or without assistive devices. 6-Udvlnwliju-dcffdig completes the activity by him/herself with no assistance from a helper. 5-Set-up or Clean-up Assistance-helper sets up or cleans up; patient completes activity. [place] assists only prior to or following the activity. 4-Supervision or Touching Assistance-helper provides verbal cues and/or cullen venu/steadying and/or contact guard assistance as patient completes activity. Assistance may be provided throughout the activity or intermittently. 3-Partial/Moderate Assistance-helper does LESS THAN HALF the effort. [place] lifts, holds or supports trunk or limbs, but provides less than half the effort. 2-Substantial/Maximal Assistance-helper does MORE THAN HALF the effort. [place] lifts or holds trunk or limbs and provides more than half the effort. 2-Bfaarxtvq-yicomf does ALL the effort. Patient does none of the effort to complete the activity. Or, the assistance of 2 or more helpers is required for the patient to complete the activity. If activity was not attempted, code reason: 7-Patient Refused. 9-Not Applicable-not attempted and the patient did not perform the activity before the current illness, exacerbation or injury. 10-Not Attempted due to Environmental Limitations-(lack of equipment, weather restraints, etc.). 88-Not Attempted due to Medical Conditions or Safety Concerns. Eating (QC): 6 Oral Hygiene (QC): 4 (SUP in stance.) Bathing Location: L Arm, R Arm, L Upper Leg, R Upper Leg, L Lower Leg (including foot), R Lower Leg (including foot), Chest, Abdomen, Buttocks, Perine al Area Shower/Bathe Self (QC): 4 (SUP in stance.) Upper Body Dressing (QC): 6 Lower Body Dressing (QC): 4 (SBA in stance. utilization of walker in stance, use of press maintainer for breif) On/Off Footwear: 5 (s/u: pt able to complete sock donning post-ETTA wrapping of BLE (lotion applied bilaterally for skin integrity)) Toileting Hygiene (QC): 4 (SUP) Toilet Transfer (QC): 4 (SUP) Other Treatment [id number]: Pt agrees to OT tx session and showering. pt completes sit to stand from chair with SBA, use of walker to commode and toileting with SUP. pt states she feels ready to return home. Goals of completing ADLs on this date. Pt ambulates to shower with walker, safety with walker to shower, use of grab bars for balance. Pt undresses with IND, completes showering with SUP- able to reach all areas with LHS. pt dresses in chair beside shower, increased IND. Pt completes oral and hair care with SBA-SUP in front of sink. Pt returns to recliner, ETTA wraps applied, pt dons socks with IND. pt completes 2 sets of 10 reps of shoulder flexion and shoulder horizontal ab/adduction. pt left in recliner with all needs met, call light in reach, education of PT post-OT session. [id number]: (15) Pt seen in recliner, agrees to theraband ex. Pt completes 3 sets of 10 reps bilaterally of the following exercises while in stance in front of walker: shoulder flexion, back flies, bicep curls. Pt becomes winded, requires break. Pt completes sock don/ doffing in chair with increased time, with IND. pt suggests restroom, completes with SUP. pt washes hands with good balance in front of sink (SUP), returns to recliner. Pt denies elevating feet as pt prefers to eat with feet down. Pt left in chair, call light in reach, all needs met. Education OT Patient Education: Correct positioning, Exercise program, Modified ADL techniques, Purpose of tx/functional activities, Rehab process Teaching Recipient: Patient Teaching Methods: Demonstration, Discussion Response to Teaching: Verbalize Understanding, Return Demonstration OT Short Term Goals Short Term Goals Upper body dressin Lower body dressin OT Disease Education Specialist Goals Disease Education Specialist Goals Time Frame: Jul 16, 2019 Eating (QC): 6 (met) Oral Hygiene (QC): 6 Toileting Hygiene (QC): 6 Shower/Bathe Self (QC): 6 Upper Body Dressing (QC): 6 (met) Lower Body Dressing (QC): 6 On/Off Footwear (QC): 6 Additional Goals: 1-Demonstrate ADL Tasks, 2-Verbalize Understanding, 3- ImproveStrength/Chrissy 1=Demonstrate adherence to instructed precautions during ADL tasks. 2=Patient will verbalize/demonstrate understanding of assistive devices/modifications for ADL. 3=Patient will improve strength/tolerance for activity to enable patient to perform ADL's. OT Education/Plan Problem List/Assessment Assessment: Decreased Activ Tolerance, Edema, Impaired I ADL's, Impaired Self- Care Skills Discharge Recommendations Plan/Recommendations: Continue POC Treatment Plan/Plan of Care Treatment,Training & Education: Yes Patient would benefit from OT for education, treatment and training to promote independence in ADL's, mobility, safety and/or upper extremity function for ADL's. Plan of Care: ADL Retraining, Caregiver Training, Concurrent Therapy, Functional Mobility, Group Exercise/Act as Ind, UE Funct Exercise/Act Treatment Duration: Jul 16, 2019 Frequency: At least 5 of 7 days/Wk (IRF) Estimated Hrs Per Day: 1.5 hours per day Agreement: Yes Rehab Potential: Good Time/GCodes Start Time: 07:45 (1110) Stop Time: 09:00 (1125) Total Time Billed (hr/min): 90 Billed Treatment Time [id number]: 1, ADL 4 (60), EX (15)= 75 [id number]: 1, ADL (15)= 15 Total time: 90 min KODI LEO OTR Jul 09, 2019 10:10
--- NOTE | 2019-07-09 13:38 | Physical Therapy Daily Note ---
PT Daily Note-Current Subjective Pt. agrees to Rx. Pain Location: No Pain Reported Appearance LEs with edema R>L Mental Status Patient Orientation: Normal For Age Attachments: SCD's (after Rx), Oxygen (2L) Transfers SCALE: Activities may be completed with or without assistive devices. 5-Vrpdgnnera-gfvhbyd completes the activity by him/herself with no assistance from a helper. 5-Set-up or Clean-up Assistance-helper sets up or cleans up; patient completes activity. [place] assists only prior to or following the activity. 4-Supervision or Touching Assistance-helper provides verbal cues and/or touching/steadying and/or contact guard assistance as patient completes activity. Assistance may be provided throughout the activity or intermittently. 3-Partial/Moderate Assistance-helper does LESS THAN HALF the effort. [place] lifts, holds or supports trunk or limbs, but provides less than half the effort. 2-Substantial/Maximal Assistance-helper does MORE THAN HALF the effort. [place] lifts or holds trunk or limbs and provides more than half the effort. 3-Vcjamhazj-wvlqjw does ALL the effort. Patient does none of the effort to complete the activity. Or, the assistance of 2 or more helpers is required for the patient to complete the activity. If activity was not attempted, code reason: 7-Patient Refused. 9-Not Applicable-not attempted and the patient did not perform the activity before the current illness, exacerbation or injury. 10-Not Attempted due to Environmental Limitations-(lack of equipment, weather restraints, etc.). 88-Not Attempted due to Medical Conditions or Safety Concerns. in out chair, on off toilet all SBA Weight Bearing Right Lower Extremity: Right Full Weight Bearing Left Lower Extremity: Left Full Weight Bearing Gait Training Does the Patient Walk?: Yes Gait Assistive Device: FWW 160 ft x 2 kyphotic, R foot drop with foot and distal lower extremity to swollen to wear AFO. Pt. compensates by hyper lifting R hip Stair Training Stair Training: Handrails/: 2 handrails #of Steps: 4 4 Steps (QC): 4 Stairs: Pattern: Step to CGA, pt. ascends and descends both with R foot first... states this is what she has always done at home for yrs," family is always present, behind me as I go up and in front of me me as I come down" Exercises Seated Therapy Exercises: Ankle pumps, Sit to stand, Long arc quads, Hip flexion Seated Reps: 10 Treatments toileted SBA, up in recliner after Rx with SCDs on bilat LEs and feet elevated Assessment Current Status: Good Progress PT Short Term Goals Short Term Goals Time Frame: Jul 09, 2019 Sit to lyin Lying to sitting on side of be: 4 Sit to stand: 4 Walk 150 feet: 4 PT Alf Goals Dynamicist Goals PT Dynamicist Goals Time Frame: Jul 17, 2019 Roll Left & Right (QC): 6 Sit to Lying (QC): 6 Lying-Sitting on Side/Bed(QC): 6 Sit to Stand (QC): 6 Chair/Lcf-pr-Jowjw Xfer(QC): 6 Toilet Transfer (QC): 6 Car Transfer (QC): 5 Does the Patient Walk: Yes Walk 10 feet (QC): 6 Walk 50ft with 2 Turns (QC): 6 Walk 150 ft (QC): 6 Walking 10ft on Uneven Surface: 5 1 Step (curb) (QC): 5 4 Steps (QC): 4 12 Steps (QC): 9 Picking up an Object (QC): 4 Does the Pt use WC or Scooter?: No PT Plan Treatment/Plan Treatment Plan: Continue Plan of Care Treatment Plan: Bed Mobility, Education, Functional Activity Chrissy, Functional Strength, Group Therapy, Gait, Safety, Therapeutic Exercise, Transfers Treatment Duration: Jul 17, 2019 Frequency: Modified Program (IRF) Estimated Hrs Per Day: 1 hour per day (to 1.5 hrs/day) Patient and/or Family Agrees t: Yes Safety Risks/Education Patient Education: Gait Training, Transfer Techniques, Steps, Correct Positioning, Disease Process, Safety Issues Teaching Recipient: Patient Teaching Methods: Demonstration, Discussion Response to Teaching: Verbalize Understanding, Return Demonstration, Reinforcement Needed Time/GCodes Time In: 1303 Time Out: 1333 Total Billed Treatment Time: 30 Total Billed Treatment 1,GT20,FA10 DERIAN MERCADO HARD METALS HAND ENGRAVER Jul 09, 2019 13:38
--- NOTE | 2019-07-09 15:56 | NUR ---
CM/SS CONCURRENT NOTE Anticipate patient will need home O2 for discharge planned for 07/11/19. Patient will require a new RT home O2 sat assessment. Confirmed with Shreya/Ginger that patient had an overnight pulse oximetry test at their hospital but that it expires within 48 hours as does other O2 studies with the exception of sleep lab studies. DME: Spoke with son Juventino Paiz, he also confirmed that patient does not have home O2 at this time and stated his preferred agency is [facility] in [place]. HHC: Recommend RN and PT, will confirm preference with [facility] agency. Will finalize all post hospital care services for Tuesday.
[2019-07-09 17:26] VITALS: BP 125/55
[2019-07-09] MEDS: ENOXAPARIN 40 MG/0.4 ML (LOVENOX) SYR SC SCH (18:27)
[2019-07-09] MEDS: MONTELUKAST 10 MG (SINGULAIR) TAB PO SCH (20:30)
[2019-07-09] MEDS: LATANOPROST 0.005% (XALATAN) OPHTH SOLN 2.5 ML OU SCH (20:33)
[2019-07-10] MEDS: RT-ALBUTEROL/IPRATROPIUM 3 ML (DUONEB) VIAL INH SCH ×4 (02:00→21:54)
[2019-07-10 05:10] VITALS: BP 124/72
[2019-07-10] MEDS: MULTIVIT W/MINERALS TAB (THERAGRAN M) PO SCH (06:32)
[2019-07-10] MEDS: KCL 10 MEQ TAB (MICRO K) PO SCH (06:32)
--- NOTE | 2019-07-10 08:09 | Cardiology Progress Note ---
Subjective Date Seen by Provider: Jul 10, 2019 Time Seen by Provider: 08:08 Subjective/Events-last exam Patient sitting up in chair, denies any chest pain or dyspnea. Review of Systems General: No Chills, No Night Sweats, No Fatigue, No Malaise, No Appetite, No Other HEENT: No Head Aches, No Visual Changes, No Eye Pain, No Ear Pain, No Dysphasia, No Sinus Congestion, No Post Nasal Drip, No Sore Throat, No Other Pulmonary: No Dyspnea, No Cough, No Pleuritic Chest Pain, No Other Cardiovascular: No: Chest Pain, Palpitations, Orthopnea, Paroxysmal Noc. Dyspnea, Edema, Lt Headedness, Other Objective-Cardiology Exam Last Set of Vital Signs Vital Signs 07/10/19 07/10/19 05:10 15:18 Temp 36.5 Pulse 63 Resp 18 B/P (MAP) 124/72 (89) Pulse Ox 96 O2 Delivery Nasal Cannula O2 Flow Rate 3.00 Capillary Refill : Less Than 3 Seconds I&O Intake and Output 07/10/19 00:00 Intake Total 1460 ml Balance 1460 ml Intake Oral 1460 ml # Voids 6 General: Alert, Oriented X3, Cooperative HEENT: Atraumatic, PERRLA Neck: Supple, No JVD, No Thyromegaly Lungs: Clear to Auscultation, Normal Air Movement Heart: Regular Rate, Normal S1, Normal S2, No Murmurs Abdomen: Normal Bowel Sounds, Soft, No Tenderness, No Hepatosplenomegaly, No Masses Extremities: No Clubbing, No Cyanosis, No Edema, Normal Pulses, No Tenderness/Swelling Skin: No Rashes, No Breakdown, No Significant Lesion Neuro: Normal Gait, Normal Speech, Strength at 5/5 X4 Ext, Normal Tone, Sensation Intact Psych/Mental Status: Mental Status NL, Mood NL A/P-Cardiology Admission Diagnosis Shortness of breath Pulmonary hypertension Hypertension Sinus bradycardia Assessment/Plan Shortness of breath, reporting improvement. Continue to monitor Elevated liver enzymes, unknown etiology, improving slowly, continue to monitor, managed by primary care physician Pulmonary hypertension, severe, probably due to COPD, venous doppler negative for DVT. Bradycardia, history of sinus bradycardia in the past, currently asymptomatic. Continue to monitor heart rate and blood pressure Hypertension, controlled. ,continue to monitor. Recent pneumonia, resolved, managed by primary care physician Peripheral edema- discussed limiting salt in her diet. Debility and shortness of breath, improving, continue with physical therapy Patient was seen and evaluated with Jillian, examination performed, management plan was discussed, agree with the current scribed note, I made few changes to the note using Italic font Patient is sitting in a chair, feeling better, no new complaint Continue to monitor electrolytes and liver enzymes Continue on current medications Clinical Quality Measures DVT/VTE Risk/Contraindication: Risk Factor Score Per Nursin RFS Level Per Nursing on Admit: 4+=Very High JILLIAN BEST Jul 10, 2019 8:09 am CRUZ DANIELS MD Jul 10, 2019 4:19 pm
[2019-07-10] MEDS: polyethylene glycoL POWDER 17 GM (MIRALAX) PACK PO SCH ×2 (09:00→20:19)
--- NOTE | 2019-07-10 09:02 | PM&R Progress Note ---
Subjective HPI/CC On Admission Date Seen by Provider: Jul 10, 2019 Time Seen by Provider: 09:00 Subjective/Events-last exam Discharge is planned for Tuesday. Home O2 will be completed since she had that approved already [place] [facility] but requires that re-tested again at rehab. [employer] will provide that O2 supply. Pt overall doing extremely well. Conferred with RN Reviewed therapy notes Checked meds and labs Review of Systems General: Fatigue Pulmonary: Dyspnea Objective Exam Vital Signs Vital Signs Date Time Temp Pulse Resp B/P (MAP) Pulse Ox O2 Delivery O2 Flow Rate FiO2 07/10/19 18:59 36.4 69 16 129/54 (79) 100 Nasal Cannula 2.00 Capillary Refill : Less Than 3 Seconds General Appearance: No Apparent Distress, WD/WN, Chronically ill, Obese HEENT: PERRL/EOMI, Normal ENT Inspection, Pharynx Normal, Moist Mucous Membranes Neck: Full Range of Motion, Normal Inspection, Non Tender, Supple, Carotid Bruit Respiratory: Chest Non Tender, Normal Breath Sounds, No Accessory Muscle Use, No Respiratory Distress, Decreased Breath Sounds Cardiovascular: Regular Rate, Rhythm, No Gallop, No JVD, No Murmur, Normal Peripheral Pulses Gastrointestinal: Normal Bowel Sounds, No Organomegaly, No Pulsatile Mass, Non Tender, Soft Back: Normal Inspection, No CVA Tenderness, No Vertebral Tenderness Extremity: Normal Capillary Refill, Normal Inspection, Normal Range of Motion, Non Tender, No Calf Tenderness, Pedal Edema Neurologic/Psychiatric: Alert, Oriented x3, No Motor/Sensory Deficits, Normal Mood/Affect, desktop publishing associate II-XII Norm as Tested, Motor Weakness (generalized, ambulates slowly) Skin: Normal Color, Warm/Dry Lymphatic: No Adenopathy Results/Procedures Lab Patient resulted labs reviewed. FIM Transfers Therapy Code Descriptions/Definitions Functional Hanna Measure: 0=Not Assessed/NA 4=Minimal Assistance 1=Total Assistance 5=Supervision or Setup 2=Maximal Assistance 6=Modified Hanna 3=Moderate Assistance 7=Complete IndependenceSCALE: Activities may be completed with or without assistive devices. 3-Cjmzfryrhn-wwlvmvz completes the activity by him/herself with no assistance from a helper. 5-Set-up or Clean-up Assistance-helper sets up or cleans up; patient completes activity. [place] assists only prior to or following the activity. 4-Supervision or Touching Assistance-helper provides verbal cues and/or touching/steadying and/or contact guard assistance as patient completes activity. Assistance may be provided throughout the activity or intermittently. 3-Partial/Moderate Assistance-helper does LESS THAN HALF the effort. [place] lifts, holds or supports trunk or limbs, but provides less than half the effort. 2-Substantial/Maximal Assistance-helper does MORE THAN HALF the effort. [place] lifts or holds trunk or limbs and provides more than half the effort. 4-Udipigcxw-joicxk does ALL the effort. Patient does none of the effort to complete the activity. Or, the assistance of 2 or more helpers is required for the patient to complete the activity. If activity was not attempted, code reason: 7-Patient Refused. 9-Not Applicable-not attempted and the patient did not perform the activity before the current illness, exacerbation or injury. 10-Not Attempted due to Environmental Limitations-(lack of equipment, weather restraints, etc.). 88-Not Attempted due to Medical Conditions or Safety Concerns. Roll Left to Right (QC): 5 Sit to Lying (QC): 5 Sit to Stand (QC): 5 Chair/Fsp-aa-Cxmqh Xfer(QC): 5 Car Transfer (QC): 3 (min assist to get in/out and cues for sequencing) Gait Training Does the Patient Walk?: Yes Distance: 150 x2 each AM and PM Walk 10 feet (QC): 6 Walk 50 ft with 2 Turns(QC): 6 Walk 150 ft (QC): 6 Walking 10ft/uneven surface-QC: 3 (min assist for balance) Gait Persons Needed: 1 Gait Assistive Device: FWW Wheelchair Training Does the Pt Use a Wheelchair?: No Stair Training Stair Training: Handrails/: 2 handrails #of Steps: 4 1 Step (curb) (QC): 3 (min assist to step up) 4 Steps (QC): 4 12 Steps (QC): 88 Stairs: Pattern: Step to Balance Picking up an Object (QC): 88 ADL-Treatment Eating (QC): 6 Oral Hygiene (QC): 4 (SUP in stance.) Bathing Location: L Arm, R Arm, L Upper Leg, R Upper Leg, L Lower Leg (including foot), R Lower Leg (including foot), Chest, Abdomen, Buttocks, Perineal Area Shower/Bathe Self (QC): 4 (SUP in stance.) Upper Body Dressing (QC): 6 Lower Body Dressing (QC): 4 (SBA in stance. utilization of walker in stance, use of label drier for breif) On/Off Footwear (QC): 5 (s/u: pt able to complete sock donning post-ETTA wrapping of BLE (lotion applied bilaterally for skin integrity)) Toileting Hygiene (QC): 4 (SUP) Toilet Transfer (QC): 4 (SUP) Assessment/Plan Assessment and Plan Assess & Plan/Chief Complaint Assessment: New O2 dependence Debility following Mycoplasma and UTI PHTN Edema Chronic right foot drop uses AFO Edema HTN OAB Crackles on lung bases Plan: IRF protocol Edema treatment with wide etta wraps O2 Much improved Monitor stamina on O2 IS (1) Debility (2) COPD (chronic obstructive pulmonary disease) Qualifiers: Qualified Codes: J44.9 - Chronic obstructive pulmonary disease, unspecified (3) Oxygen dependent (4) Hypoxemia (5) Edema (6) Hypertension (7) H/O mycoplasma pneumonia (8) Hx: UTI (urinary tract infection) (9) Foot drop, right (10) Glaucoma (11) Overactive bladder RIKA BERUMEN DO Jul 10, 2019 09:02
[2019-07-10] MEDS: RT-ADVAIR HFA 115/21 MCG PER PUFF IH SCH ×2 (09:10→21:54)
--- NOTE | 2019-07-10 09:37 | Occupational Ther Daily Note ---
OT Current Status-Daily Note Subjective Pt seen in recliner chair, agreeable to OT tx session. Pt states no pain, slept well last night. Pt wondering about d/c plans tomorrow. Mental Status/Objective Patient Orientation: Normal For Age Attachments: Oxygen (2L) ADL-Treatment Therapy Code Descriptions/Definitions Functional [place] Measure: 0=Not Assessed/NA 4=Minimal Assistance 1=Total Assistance 5=Supervision or Setup 2=Maximal Assistance 6=Modified [place] 3=Moderate Assistance 7=Complete IndependenceSCALE: Activities may be completed with or without assistive devices. 6-Tkwdwerqni-wajdjyf completes the activity by him/herself with no assistance from a helper. 5-Set-up or Clean-up Assistance-helper sets up or cleans up; patient completes activity. [place] assists only prior to or following the activity. 4-Supervision or Touching Assistance-helper provides verbal cues and/or touching/steadying and/or contact guard assistance as patient completes activity. Assistance may be provided throughout the activity or intermittently. 3-Partial/Moderate Assistance-helper does LESS THAN HALF the effort. [place] lifts, holds or supports trunk or limbs, but provides less than half the effort. 2-Substantial/Maximal Assistance-helper does MORE THAN HALF the effort. [place] lifts or holds trunk or limbs and provides more than half the effort. 9-Wyjjcukzk-pnqwra does ALL the effort. Patient does none of the effort to complete the activity. Or, the assistance of 2 or more helpers is required for the patient to complete the activity. If activity was not attempted, code reason: 7-Patient Refused. 9-Not Applicable-not attempted and the patient did not perform the activity before the current illness, exacerbation or injury. 10-Not Attempted due to Environmental Limitations-(lack of equipment, weather restraints, etc.). 88-Not Attempted due to Medical Conditions or Safety Concerns. Eating (QC): 6 Oral Hygiene (QC): 6 (completes with IND in front of sink) Bathing Location: L Arm, R Arm, L Upper Leg, R Upper Leg, L Lower Leg (including foot), R Lower Leg (including foot), Chest, Abdomen, Buttocks, Perineal Area Shower/Bathe Self (QC): 4 (s/u for washcloths, SBA in stance. Pt completes tub transfer with grab bars- difficulty and min A/ CGA to clear tub ledge. Pt completes a second time with tub transfer bench- able to complete with SBA from walker to tub/ tub to walker. SW notified of pt's interest.) Upper Body Dressing (QC): 6 Lower Body Dressing (QC): 5 (s/u) On/Off Footwear: 6 (completes with IND. ETTA wraps applied with max A.) Toileting Hygiene (QC): 4 (SUP) Toilet Transfer (QC): 4 (SUP) Other Treatment Pt agreeable to OT tx session, requests sponge bath prior to dressing. Pt completes all ADLs in room. During LB dressing requires cues for breath as pt holds breath during strenuous activity. Pt recognizes and with cues maintains steady breath through 2nd pant leg. Pt states difficulty breathing through nose due to build-up of mucous, pt completes nasal spray, states little better. Pt completes 10 min of arm bike ex with 1 rest break. Pt's sats taken intermittently (02 @85% until cued for breaths, then maintains above 90% 2nd measure). Pt completes with good endurance. Pt ambulates to shower room, completes shower/ tub transfer x2. Pt returns to room with all needs met, call light in reach. Pt's nurse and SW notified of pt's request for additional details involving timing/ details of d/c tomorrow. Education OT Patient Education: Exercise program, Modified ADL techniques, Transfer techniques Teaching Recipient: Patient Teaching Methods: Demonstration, Discussion Response to Teaching: Verbalize Understanding, Return Demonstration OT Short Term Goals Short Term Goals Upper body dressin (met) Lower body dressin (met) OT Residential Goals Residential Goals Time Frame: Jul 16, 2019 Eating (QC): 6 (met) Oral Hygiene (QC): 6 (met) Toileting Hygiene (QC): 6 Shower/Bathe Self (QC): 6 Upper Body Dressing (QC): 6 (met) Lower Body Dressing (QC): 6 On/Off Footwear (QC): 6 (met) Additional Goals: 1-Demonstrate ADL Tasks, 2-Verbalize Understanding, 3- ImproveStrength/Chrissy 1=Demonstrate adherence to instructed precautions during ADL tasks. 2=Patient will verbalize/demonstrate understanding of assistive devices/modifications for ADL. 3=Patient will improve strength/tolerance for activity to enable patient to perform ADL's. OT Education/Plan Problem List/Assessment Assessment: Decreased Activ Tolerance, Edema, Impaired I ADL's Discharge Recommendations Plan/Recommendations: Continue POC Therapy Discharge Recommendati: Intermittent Supervision, Home & Family Equpiment Recommendations-D/C: Extended Bath Bench Treatment Plan/Plan of Care Treatment,Training & Education: Yes Patient would benefit from OT for education, treatment and training to promote independence in ADL's, mobility, safety and/or upper extremity function for ADL's. Plan of Care: ADL Retraining, Caregiver Training, Concurrent Therapy, Functional Mobility, Group Exercise/Act as Ind, UE Funct Exercise/Act Treatment Duration: Jul 16, 2019 Frequency: At least 5 of 7 days/Wk (IRF) Estimated Hrs Per Day: 1.5 hours per day Agreement: Yes Rehab Potential: Good Time/GCodes Start Time: 08:00 Stop Time: 09:30 Total Time Billed (hr/min): 90 Billed Treatment Time 1, ADL 4 (60), EX 2 (30)= 90 KODI LEO OTR Jul 10, 2019 09:37
[2019-07-10] MEDS ORDERED: TIMO5DRO5 OU (09:38)
[2019-07-10] MEDS ORDERED: MONT10TA24 PO (09:38)
[2019-07-10] MEDS ORDERED: IPRA3AMP31 INH (09:38)
[2019-07-10] MEDS ORDERED: POTA10TA6 PO (09:38)
[2019-07-10] MEDS ORDERED: FURO40TA4 PO (09:38)
[2019-07-10] MEDS ORDERED: FLUT12AE4 IH (09:38)
[2019-07-10] MEDS: LOSARTAN 100 MG (COZAAR) TABLET PO SCH (09:48)
[2019-07-10] MEDS: DOCUSATE SODIUM 100 MG (COLACE) CAP PO SCH ×2 (09:48→20:24)
[2019-07-10] MEDS: ASPIRIN E.C. 81 MG (ECOTRIN) TAB PO SCH (09:48)
[2019-07-10] MEDS: OXYBUTYNIN (DITROPAN) 5 MG TAB PO SCH ×2 (09:48→20:24)
[2019-07-10] MEDS: CALCIUM CARB + VIT D 600 MG (CALCARB + D) TAB PO SCH (09:48)
--- NOTE | 2019-07-10 09:48 | D/C HH Face to Face Order ---
D/C Face to Face Orders Reconcile Patient Problems Problems Reviewed?: Yes Instructions for Patient [facility] Home Health Patient Instructions/FollowUp: Dr Ferreira 1 week needs PFT and sleep study Physician to follow Patient: Jhon Discharge Diet for Home: No Restrictions Patient Problems: New O2 dependency Goals for Patient: independence Patient Data-Allergies,Ht & Wt Patient Allergies: Coded Allergies: Sulfa (Sulfonamide Antibiotics) (Verified Allergy, Intermediate, Rash, 07/02/19) acetaminophen (Verified Allergy, Intermediate, Rash, 07/02/19) Home Health Need/Face to Face Date of Face to Face: Jul 11, 2019 Clinical Findings: Generalized weakness and fatigue, Instability, Muscle weakness, Shortness of breath, Unsteady gait I have seen Pt rchz-cc-muja: Yes Discharged To: Home Diagnosis/Conditions: New O2 dependency Patient is Homebound due to: CognItive deficits, Pain w/ambulation, Shortness of breath/distress Homebound Status Due to the above stated illness, injury or surgical procedure (medical condition or diagnosis) and associated clinical findings, the patient is homebound because of his/her inability to leave home except with aid of a supportive device and/or person AND leaving the home requires a considerable and taxing effort or is medically contraindicated. Pt req the following assistanc: Walker Home Health Nursing Orders Home Health Services Order: Nursing Services, Baggage Handling Supervisor-Evaluate & Treat, Physical Therapy-Evaluate & Treat Certify Stmt I certify that this patient is under my care and that I, a nurse practitioner or a physician; a infertility medical assistant working with me, had a face to face encounter that - meets the physician face to face encounter requirements with this patient as dated. RIKA BERUMEN DO Jul 10, 2019 09:48
[2019-07-10] MEDS: FUROSEMIDE 40 MG (LASIX) TAB PO SCH (09:49)
[2019-07-10] MEDS: SENNA W/DOCUSATE (SENOKOT S) TABLET PO SCH ×2 (09:49→20:24)
[2019-07-10] MEDS: TIMOLOL MALEATE 0.5% 5 ML (TIMOPTIC) BTL OU SCH ×2 (09:50→20:25)
--- NOTE | 2019-07-10 10:39 | Progress Note ---
SABRINA JAIME, MEDICAL STUDENT 07/10/19 1039: Progress Note Patient's lower extremity edema is greatly improved Planning for Home O2 Currently on 2L O2 Patient is working with PT well Labs and Vitals stable General Appearance: No Apparent Distress, WD/WN, Chronically ill, Obese HEENT: PERRL/EOMI, Normal ENT Inspection, Pharynx Normal, Moist Mucous Membranes Neck: Full Range of Motion, Normal Inspection, Non Tender, Supple, Carotid Bruit Respiratory: Chest Non Tender, Normal Breath Sounds, No Accessory Muscle Use, No Respiratory Distress, Decreased Breath Sounds Cardiovascular: Regular Rate, Rhythm, No Gallop, No JVD, No Murmur, Normal Peripheral Pulses Gastrointestinal: Normal Bowel Sounds, No Organomegaly, No Pulsatile Mass, Non Tender, Soft Neurologic/Psychiatric: Alert, Oriented x3, No Motor/Sensory Deficits, Normal Mood/Affect, door and arrival attendant II-XII Norm as Tested, Motor Weakness (generalized, ambulates slowly) Skin: Normal Color, Warm/Dry Plan: IRF protocol Edema treatment with wide alan wraps Home O2 DIAMANTE BERUMEN DO 07/10/192023: Supervisory-Addendum Brief Verification & Attestation Participated in pt care: history, MDM, physical Personally performed: exam, history, MDM, supervision of care Care discussed with: Medical Student Procedures: n/a Results interpretation: Verified all documentation Verification and Attestation of Medical Student E/M Service A medical student performed and documented this service in my presence. I reviewed and verified all information documented by the medical student and made modifications to such information, when appropriate. I personally performed the physical exam and medical decision making. Diamante Berumen, Jul 10, 2019,20:24 SABRINA JAIME, MEDICAL STUDENT Jul 10, 2019 10:39 DIAMANTE BERUMEN DO Jul 10, 2019 20:24
--- NOTE | 2019-07-10 12:01 | Physical Therapy Daily Note ---
PT Daily Note-Current Subjective Pt sitting in recliner upon arrival. Pt agrees to PT. Pain Location: No Pain Reported Mental Status Patient Orientation: Person, Place, Situation Attachments: Oxygen (2L) Transfers SCALE: Activities may be completed with or without assistive devices. 8-Dlnpocalab-djbtopr completes the activity by him/herself with no assistance from a helper. 5-Set-up or Clean-up Assistance-helper sets up or cleans up; patient completes activity. [place] assists only prior to or following the activity. 4-Supervision or Touching Assistance-helper provides verbal cues and/or touching/steadying and/or contact guard assistance as patient completes activity. Assistance may be provided throughout the activity or intermittently. 3-Partial/Moderate Assistance-helper does LESS THAN HALF the effort. [place] lifts, holds or supports trunk or limbs, but provides less than half the effort. 2-Substantial/Maximal Assistance-helper does MORE THAN HALF the effort. [place] lifts or holds trunk or limbs and provides more than half the effort. 9-Qsohzjcsu-wvmgvx does ALL the effort. Patient does none of the effort to complete the activity. Or, the assistance of 2 or more helpers is required for the patient to complete the activity. If activity was not attempted, code reason: 7-Patient Refused. 9-Not Applicable-not attempted and the patient did not perform the activity before the current illness, exacerbation or injury. 10-Not Attempted due to Environmental Limitations-(lack of equipment, weather restraints, etc.). 88-Not Attempted due to Medical Conditions or Safety Concerns. Roll Left & Right (QC): 9 Sit to Lying (QC): 9 Lying to Sitting/Side of Bed(Q: 9 Sit to Stand (QC): 6 Chair/Lbf-yi-Fkyeh Xfer(QC): 6 Toilet Transfer (QC): 6 Car Transfer (QC): 6 Pt sleeps in recliner at home due to back pain that was baseline. Pt is unable to lay flat so laying items weren't tested. Weight Bearing Right Lower Extremity: Right Full Weight Bearing Left Lower Extremity: Left Full Weight Bearing Gait Training Does the Patient Walk?: Yes Distance: 150' x2 Walk 10 feet (QC): 6 Walk 50 ft with 2 Turns(QC): 6 Walk 150 ft (QC): 6 Walking 10ft/uneven surface-QC: 6 Gait Persons Needed: 1 Gait Assistive Device: FWW EDUCATION AND TRAINING COORDINATOR gives occasional VC to watch O2 line when ambulating & with transfers. Wheelchair Training Does the Pt Use a Wheelchair?: No Stair Training Stair Training: Handrails/: 2 handrails #of Steps: 4 1 Step (curb) (QC): 5 4 Steps (QC): 5 12 Steps (QC): 7 Stairs: Pattern: Step to Pt fatigues after 4 steps, citing needing RB. Balance Picking up an Object (QC): 9 Special Test Comments Pt has model technician at home that will be used to perform this task. Exercises Seated Therapy Exercises: Ankle pumps, Long arc quads, Hip flexion, Kicking activity, Glut set Seated Reps: 15 Treatments Pt completes QC scoring items listed above. Pt completes Seated Ex & EDUCATION AND TRAINING COORDINATOR gives written HEP for both Supine (that can be completed in recliner ) & Seated Ex. Pt returns to room and uses restroom before resting in recliner with all needs met, call light in hand. Assessment Current Status: Good Progress Pt needs occasional VC for safety with O2 line. PT Short Term Goals Short Term Goals Time Frame: Jul 09, 2019 Sit to lyin Lying to sitting on side of be: 4 Sit to stand: 4 Walk 150 feet: 4 PT Mcfp Goals Upholstery Repairer Goals PT Mcfp Goals Time Frame: Jul 17, 2019 Roll Left & Right (QC): 6 Sit to Lying (QC): 6 Lying-Sitting on Side/Bed(QC): 6 Sit to Stand (QC): 6 Chair/Lvm-ol-Fezts Xfer(QC): 6 Toilet Transfer (QC): 6 Car Transfer (QC): 5 Does the Patient Walk: Yes Walk 10 feet (QC): 6 Walk 50ft with 2 Turns (QC): 6 Walk 150 ft (QC): 6 Walking 10ft on Uneven Surface: 5 1 Step (curb) (QC): 5 4 Steps (QC): 4 12 Steps (QC): 9 Picking up an Object (QC): 4 Does the Pt use WC or Scooter?: No PT Plan Problem List Problem List: Activity Tolerance Treatment/Plan Treatment Plan: Continue Plan of Care Treatment Plan: Bed Mobility, Education, Functional Activity Chrissy, Functional Strength, Group Therapy, Gait, Safety, Therapeutic Exercise, Transfers Treatment Duration: Jul 17, 2019 Frequency: Modified Program (IRF) Estimated Hrs Per Day: 1 hour per day (to 1.5 hrs/day) Patient and/or Family Agrees t: Yes Safety Risks/Education Patient Education: Gait Training, Transfer Techniques, Issued Written HEP, Correct Positioning, Safety Issues Teaching Recipient: Patient Teaching Methods: Discussion Response to Teaching: Verbalize Understanding Time/GCodes Time In: 1045 Time Out: 1145 Total Billed Treatment Time: 60 Total Billed Treatment 1, GT (20m), FA x2 (25m) & EX (15m) LEIDY CRUZ EDUCATION AND TRAINING COORDINATOR Jul 10, 2019 12:01
--- NOTE | 2019-07-10 12:08 | NUR ---
"RD ASSESSMENT PMHx: COPD; HTN PT INTERACTION: Pt was awake and pleasant during nutrition follow-up. Pt states she has been eating well since last assessment. Note avg PO intake of 75% x3d, per chart review. Pt states no issues with n/v/d since last assessment. Pt states some issues with constipation since last assessment. Note last BM was 07/10 and pt currently on bowel regimen of colace BID; senna BID; and miralax BID, per chart review. ABNORMAL NUTRITION-RELATED LAB VALUES LOW: HIGH: BUN 26; glu 107; AST 48; ALT 89 Est. kcal needs: 9560-3484 kcal | 15-18 kcal/kg Est. Pro needs: 69-86 g Pro | 0.8-1.0 g Pro/kg PES STATEMENT: Given pt's PO intake, no nutrition diagnosis at this time (NO-1.1) INTERVENTION: Continue with current diet order of Regular diet. Will continue to follow and reassess as pt needs and status change. MONITOR/EVALUATE: PO Intake; Plan of Care; Hydration Status; Weight Status; Lab Values Juan Carlos Sanon, MS, RD, LD"
--- NOTE | 2019-07-10 14:47 | Physical Therapy Daily Note ---
PT Daily Note-Current Subjective Pt sitting in recliner upon arrival. Pt reports just used restroom so declines needing to use again. Pt agrees to PT. Pain Location: No Pain Reported Mental Status Patient Orientation: Person, Place, Situation Attachments: Oxygen (2L) Transfers SCALE: Activities may be completed with or without assistive devices. 0-Idymtafcts-fzxhemr completes the activity by him/herself with no assistance from a helper. 5-Set-up or Clean-up Assistance-helper sets up or cleans up; patient completes activity. [place] assists only prior to or following the activity. 4-Supervision or Touching Assistance-helper provides verbal cues and/or touching/steadying and/or contact guard assistance as patient completes activity. Assistance may be provided throughout the activity or intermittently. 3-Partial/Moderate Assistance-helper does LESS THAN HALF the effort. [place] lifts, holds or supports trunk or limbs, but provides less than half the effort. 2-Substantial/Maximal Assistance-helper does MORE THAN HALF the effort. [place] lifts or holds trunk or limbs and provides more than half the effort. 4-Zbgnlvxmu-kxauhh does ALL the effort. Patient does none of the effort to complete the activity. Or, the assistance of 2 or more helpers is required for the patient to complete the activity. If activity was not attempted, code reason: 7-Patient Refused. 9-Not Applicable-not attempted and the patient did not perform the activity before the current illness, exacerbation or injury. 10-Not Attempted due to Environmental Limitations-(lack of equipment, weather restraints, etc.). 88-Not Attempted due to Medical Conditions or Safety Concerns. Weight Bearing Right Lower Extremity: Right Full Weight Bearing Left Lower Extremity: Left Full Weight Bearing Exercises Supine Ex: Ankle pumps, Quad Set, Glut sets, Heel Slides, Straight leg raise, Hip abd/add Supine Reps: 15 Seated Therapy Exercises: Ankle pumps, Long arc quads, Hip flexion, Kicking activity, Hip abd/add Seated Reps: 15 Treatments Pt completes written HEP (both Seated and Supine-reclined in chair). Pt takes RB as needed for fatigue. Pt resting in recliner with all needs met, call light in hand. RT arrives to remove O2 for home O2 test at end of Rx. Assessment Current Status: Good Progress Pt needs occasional RB for fatigue. PT Short Term Goals Short Term Goals Time Frame: Jul 09, 2019 Sit to lyin Lying to sitting on side of be: 4 Sit to stand: 4 Walk 150 feet: 4 PT Snf Goals [place] Goals PT [place] Goals Time Frame: Jul 17, 2019 Roll Left & Right (QC): 6 Sit to Lying (QC): 6 Lying-Sitting on Side/Bed(QC): 6 Sit to Stand (QC): 6 Chair/Yqf-iu-Bufdp Xfer(QC): 6 Toilet Transfer (QC): 6 Car Transfer (QC): 5 Does the Patient Walk: Yes Walk 10 feet (QC): 6 Walk 50ft with 2 Turns (QC): 6 Walk 150 ft (QC): 6 Walking 10ft on Uneven Surface: 5 1 Step (curb) (QC): 5 4 Steps (QC): 4 12 Steps (QC): 9 Picking up an Object (QC): 4 Does the Pt use WC or Scooter?: No PT Plan Problem List Problem List: Activity Tolerance, Functional Strength Treatment/Plan Treatment Plan: Continue Plan of Care Treatment Plan: Bed Mobility, Education, Functional Activity Chrissy, Functional Strength, Group Therapy, Gait, Safety, Therapeutic Exercise, Transfers Treatment Duration: Jul 17, 2019 Frequency: Modified Program (IRF) Estimated Hrs Per Day: 1 hour per day (to 1.5 hrs/day) Patient and/or Family Agrees t: Yes Safety Risks/Education Patient Education: Correct Positioning, Safety Issues Teaching Recipient: Patient Teaching Methods: Discussion Response to Teaching: Verbalize Understanding Time/GCodes Time In: 1400 Time Out: 1430 Total Billed Treatment Time: 30 Total Billed Treatment 1, EX x2 (30m) LEIDY CURZ PTA Jul 10, 2019 14:47
--- NOTE | 2019-07-10 15:24 | NUR ---
PT WALKED 250 FEET AND REQUIRED 3L OF OXYGEN
--- NOTE | 2019-07-10 15:58 | NUR ---
CM/SS FINAL DISCHARGE PLANNING Spoke with patient this a.m. and also her son Juventino by phone to finalize post hospital services/resources. [facility]: Medicare Compare provided to patient for agencies in her service area. She has selected her hometown agency, [facility]. Referral completed and phone contact made with agency staff Venessa who understands discharge is tomorrow 07/11/19. RN/PT/OT has been ordered. DME: Referral being completed with son/POA choice agency, [facility], for new home O2 at 3L and Tub Transfer Bench. Son Juventino understands the tub bench is not a covered item and he approved paying privately the $80.00 fee. The O2 and bench can now be delivered together to the home by [facility]. Updated physician about necessary orders, will complete all arrangements for tomorrow. Family plans transport between 1030 and 1100 depending on when portable O2 is delivered. [employer] advised that someone stay with patient 1-2 days at her home to monitor how she manages her new O2 and the tubing. Juventino said his would stay, other future arrangements to be determined.
[2019-07-10 16:54] VITALS: BP 129/54
[2019-07-10] MEDS: ENOXAPARIN 40 MG/0.4 ML (LOVENOX) SYR SC SCH (18:07)
[2019-07-10 18:59] VITALS: BP 129/54
[2019-07-10] MEDS: MONTELUKAST 10 MG (SINGULAIR) TAB PO SCH (20:24)
[2019-07-10] MEDS: LATANOPROST 0.005% (XALATAN) OPHTH SOLN 2.5 ML OU SCH (20:25)
[2019-07-11] MEDS: RT-ALBUTEROL/IPRATROPIUM 3 ML (DUONEB) VIAL INH SCH ×2 (02:13→09:38)
[2019-07-11 05:33] VITALS: BP 133/67
[2019-07-11] MEDS: KCL 10 MEQ TAB (MICRO K) PO SCH (06:06)
[2019-07-11] MEDS: MULTIVIT W/MINERALS TAB (THERAGRAN M) PO SCH (06:06)
--- OUTSIDE RECORDS SUMMARY | 2019-07-11 09:00 | XMS REPORT | Continuity of Care Document ---
Author Organization Unknown Address Unknown Phone Unavailable Allergies Active Description Code Type Severity Reaction Onset Reported/Identified Relationship to Patient Clinical Status Yes SULFA (SULFONAMIDE ANTIBIOTICS) MODERATE DERMATOLOGICAL - HIV Yes SULFA (SULFONAMIDE ANTIBIOTICS) MODERATE MODERATE Yes TYLENOL MODERATE MODERATE Yes acetaminophen [id number] Leonardo g Allergy Moderate Rash 07/02/2019 Yes Sulfa (Sulfonamide Antibiotics) [id number] Drug Allergy Moderate Rash 2019 Yes No Allergy Information Available [id number] Drug Allergy Unknown N/A 020 Medications Medication Packaging Start Date St op Date Route Dosage Sig POLY/BACI/NEOM OINT OINT (NEOSPORIN) lico 05/29/2017 05/29/2017 ONCE&0015 ALBUTEROL SVN 2.5MG/3CC LIQ 2.5 MG (PROVENTIL MARIBEL 2.5MG/3CC) MG 10/26/2018 10/26/2018 ONCE&1415 ACETAMINOPHEN ORAL TABLET 325mg(Tylenol) MG 06/28/2019 06/28/2019 ONCE&1402 NORMAL SALINE 1000CC IV BAG INJ 0.9 % (NS 1000CC IV BAG) ml 06/28/2019 06/28/2019 ONCE&1402 IBUPROFEN TAB 400 MG (MOTRIN) MG 06/28/2019 06/28/2019 ONCE&1427 NORMAL SALINE 250CC IV BAG I NJ 0.9 % (NS 250CC IV BAG) ml 06/28/2019 06/28/2019 ONCE&1543 IPRATROPIUM/ALBUTEROL INH SO LN (DUO-NEB INH SOLN) MLS 06/28/2019 06/28/2019 ONCE&1543 CEFTRIAXONE PREMIX IV BAG IV 1 GM/50CC (ROCEPHIN PREMIX IV BAG) GM 06/28/2019 06/28/2019 ONCE&1543 ACETAMINOPHEN ORAL TABLET 325mg(Tylenol) MG 06/28/2019 07/28/2019 PRN EVERY 6 Hour ACETAMINOPHEN ORAL TABLET 325mg(Tylenol) MG 06/28/2019 07/28/2019 PRN EVERY 6 Hour NORMAL SALINE 1000CC IV BAG INJ 0.9 % (NS 1000CC IV BAG) ml 06/28/2019 07/13/2019 CONTINUOUSEVERY 0 Hour ALPRAZOLAM TAB 0.25 MG (XANAX) MG 06/28/2019 07/08/2019 PRN Q6H CLONIDINE TAB 0.1 MG (CATAPRES) MG 06/28/2019 07/05/2019 PRN Q6H ACETAMINOPHEN SUPPOS SUP 650 MG (TYLENOL) MG 06/28/2019 07/05/2019 PRN Q4H ONDANSETRON VIAL INJ 4 MG/2CC (ZOFRAN 2CC VIAL) MG 06/28/2019 07/05/2019 PRN Q6H CALCIUM CARBONATE TAB 500 MG (TUMS) MG 06/28/2019 07/05/2019 PRN Q6H DIPHENHYDRAMINE CAP 25 MG (BENADRYL) MG 06/28/2019 07/05/2019 PRN Q6H HYDROCODONE/APAP 5MG/325MG T AB 5 MG/325MG (MAURICE-TAB 5/325) TAB 06/28/2019 07/08/2019 PRN Q6H ALUM/MAG/SIMETH 30CC LIQ (MYLANTA PLUS) cc 06/28/2019 07/08/2019 PRN Q4H GUAIFENESIN - DM LIQ (ROBITUSSIN DM) MLS 06/28/2019 07/05/2019 PRN Q4H Docusate sodium 100mg oral capsule (COLACE ) MG 06/28/2019 07/28/2019 PRN BID TIMOLOL EYE DROP DRP 0.5 % (TIMOPTIC EYE D ROP) drop 06/28/2019 07/05/2019 BID&08,1999 LACTULOSE SYRUP LIQ 20 GM/30 CC (CHRONULAC SYRUP) GM 06/28/2019 07/28/2019 BID&0800,2000 NORMAL SALINE 250CC IV BAG I NJ 0.9 % (NS 250CC IV BAG) ml 06/28/2019 07/02/2019 Daily&2100 MELATONIN TAB 3 MG (MELATONIN) MG 06/28/2019 07/27/2019 PRN QHS IPRATROPIUM/ALBUTEROL INH SO LN (DUO-NEB INH SOLN) MLS 06/28/2019 07/05/2019 QID&0600,1100,1600,2100 IPRATROPIUM/ALBUTEROL INH SO LN (DUO-NEB INH SOLN) MLS 06/28/2019 07/05/2019 Q6H&0600,1200,1800,2359 CEFTRIAXONE INJ 1 GM (ROCEPHIN) GM 06/29/2019 07/05/2019 BID&0400,1600 AMLODIPINE TAB 5 MG (NORVASC) MG 06/29/2019 07/05/2019 Daily&0900 POTASSIUM CHLORIDE TAB 10 MEQ (K-DUR) MEQ 06/29/2019 07/28/2019 Daily&0900 ASPIRIN ENTERIC COATED TAB 8 1 MG (BABY ASPIRIN EC) MG 06/29/2019 07/12/2019 Daily&0900 ENOXAPARIN SYRINGE INJ 40 MG (LOVENOX SYRI NGE) MG 06/29/2019 07/08/2019 Daily&0900 OXYBUTYNIN XL TAB 5 MG (DITROPAN XL) MG 06/29/2019 07/05/2019 Daily&0900 LATANOPROST OPHTH SOLUTION L IQ 0.005 % (XALATAN) drops 06/29/2019 07/05/2019 Daily&0900 BISACODYL TAB 5 MG (DULCOLAX) MG 06/29/2019 07/05/2019 PRN Daily FUROSEMIDE TAB 40 MG (LASIX) MG 06/29/2019 07/05/2019 Daily&0900 LOSARTAN TAB 100 MG (COZAAR) MG 06/29/2019 07/05/2019 Daily&0900 POLYETHYLENE GLYCOL POWDER U D PWD (MIRALAX 17GM UNIT DOSE PAKS) gm 06/29/2019 07/05/2019 Daily&0900 MultiVits (Thera M Plus) (mu [id number]-wehk-wtcfhbh) oral tablet TAB 06/29/2019 07/28/2019 Daily&0900 CALCIUM 600MG W VIT D TAB 60 0 MG (OSCAL/W VIT D) MG 06/29/2019 07/05/2019 Daily&0900 BISACODYL SUPPOS 10 MG (DULCOLAX SUPPOS) MG 06/29/2019 07/05/2019 PRN Daily NEBIVOLOL TAB 5 MG (BYSTOLIC) MG 06/29/2019 07/05/2019 Daily&0900 MILK OF MAGNESIA LIQ ml 06/29/2019 07/28/2019 PRN Daily IPRATROPIUM/ALBUTEROL INH SO LN (DUO-NEB INH SOLN) MLS 06/29/2019 07/06/2019 QID&0600,1100,1600,2100 CEFTRIAXONE PREMIX IV BAG IV 1 GM/50CC (ROCEPHIN PREMIX IV BAG) GM 06/29/2019 07/06/2019 BID&0400,1600 CALCIUM 600MG W VIT D TAB 60 0 MG (OSCAL/W VIT D) MG 06/30/2019 07/06/2019 Daily&0900 FUROSEMIDE VIAL INJ 40 MG (LASIX VIAL) MG 06/30/2019 06/30/2019 ONCE&1029 SALINE NASAL MIST LIQ (OCEAN SPRAY) SPRAYS 06/30/2019 07/10/2019 PRN Q6H FUROSEMIDE VIAL INJ 40 MG (LASIX VIAL) MG 07/01/2019 07/01/2019 ONCE&1033 FUROSEMIDE TAB 40 MG (LASIX) MG 07/02/2019 07/08/2019 Daily&0900 Problems Date Dx Coded Attending Type Code Diagnosis Diagnosed By 10/15/2016 Baldo Ferreira 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 10/15/2016 Baldo Ferreira 724.2 LUMBAGO 10/15/2016 Baldo Ferreira M51.37 OTHER INTERVERTEBRAL DISC DEGENERATION, LUMBOSACRAL REGION 10/15/2016 Baldo Ferreira M54.5 LOW BACK PAIN 05/29/2017 Berny Panda 870.0 LACERATION OF SKIN OF EYELID AND PERIOCULAR AREA 05/29/2017 Berny Panda S01.112A LACERATION W/O FB OF LEFT EYELID AND PERIOCULAR AREA, INIT 06/02/2017 Scott Lima V58.32 ENCOUNTER FOR REMOVAL OF SUTURES 06/02/2017 Scott Lima Z48.02 ENCOUNTER FOR REMOVAL OF SUTURES 06/09/2017 A 401.9 UNSP ECIFIED ESSENTIAL HYPERTENSION 06/09/2017 A I10 ESSENT IAL (PRIMARY) HYPERTENSION 06/16/2017 W 401.9 UNSP ECIFIED ESSENTIAL HYPERTENSION 06/16/2017 W I10 ESSENT IAL (PRIMARY) HYPERTENSION 03/29/2018 W 272.4 OTHE R AND UNSPECIFIED HYPERLIPIDEMIA 03/29/2018 W 401.9 UNSP ECIFIED ESSENTIAL HYPERTENSION 03/29/2018 W E78.5 HYPE RLIPIDEMIA, UNSPECIFIED 03/29/2018 W I10 ESSENT IAL (PRIMARY) HYPERTENSION 04/03/2018 Baldo Ferreira W 401.9 UNSPECIFIED ESSENTIAL HYPERTENSION 04/03/2018 Baldo Ferreira W I10 ESSENTIAL (PRIMARY) HYPERTENSION 04/03/2018 Baldo Ferreira W 401.9 UNSPECIFIED ESSENTIAL HYPERTENSION 04/03/2018 Baldo Ferreira I10 ESSENTIAL (PRIMARY) HYPERTENSION 07/27/2018 W 729.81 SWE LLING OF LIMB 07/27/2018 W M79.89 OTH ER SPECIFIED SOFT TISSUE DISORDERS 08/01/2018 NOLBERTO THRASHER MD Ot 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 [facility] 08/01/2018 NOLBERTO THRASHER MD Ot 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 [facility] 08/01/2018 NOLBERTO THRASHER MD Ot 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 08/01/2018 NOLBERTO THRASHER MD Ot I89 .0 LYMPHEDEMA, NOT ELSEWHERE CLASSIFIED 08/01/2018 NOLBERTO THRASHER MD Ot L97.222 NON-PRESSURE CHRONIC ULCER OF LEFT CALF 08/01/2018 NOLBERTO THRASHER MD Ot 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 08/01/2018 NOLBERTO THRASHER MD Ot 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 [facility] 08/01/2018 NOLBERTO THRASHER MD Ot L97.222 NON-PRESSURE CHRONIC ULCER OF LEFT CALF 08/03/2018 NOLBERTO THRASHER MD Ot 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 08/03/2018 NOLBERTO THRASHER MD Ot 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 [facility] 08/03/2018 NOLBERTO THRASHER MD Ot 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 08/03/2018 NOLBERTO THRASHER MD Ot 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 08/03/2018 NOLBERTO THRASHER MD Ot I89 .0 LYMPHEDEMA, NOT ELSEWHERE CLASSIFIED 08/03/2018 NOLBERTO THRASHER MD Ot L97.222 NON-PRESSURE CHRONIC ULCER OF LEFT CALF 08/03/2018 NOLBERTO THRASHER MD Ot 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 08/07/2018 NOLBERTO THRASHER MD Ot 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 [facility] 08/07/2018 NOLBERTO THRASHER MD Ot 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 [facility] 08/07/2018 NOLBERTO THRASHER MD Ot 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 08/07/2018 NOLBERTO THRASHER MD Ot 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 08/07/2018 NOLBERTO THRASHER MD Ot I89 .0 LYMPHEDEMA, NOT ELSEWHERE CLASSIFIED 08/07/2018 NOLBERTO THRASHER MD Ot L97.222 NON-PRESSURE CHRONIC ULCER OF LEFT CALF 08/07/2018 NOLBERTO THRASHER MD, Ot 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 08/17/2018 NOLBERTO THRASHER MD Ot 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 [facility] 08/17/2018 NOLBERTO THRASHER MD Ot 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 08/17/2018 NOLBERTO THRASHER MD Ot 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 08/17/2018 NOLBERTO THRASHER MD Ot I89 .0 LYMPHEDEMA, NOT ELSEWHERE CLASSIFIED 08/17/2018 NOLBERTO THRASHER MD Ot L97.222 NON-PRESSURE CHRONIC ULCER OF LEFT CALF 08/17/2018 NOLBERTO THRASHER MD Ot 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 [facility] 08/17/2018 NOLBERTO THRASHER MD Ot 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 [facility] 08/17/2018 NOLBERTO THRASHER MD Ot 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 08/17/2018 NOLBERTO THRASHER MD Ot I89 .0 LYMPHEDEMA, NOT ELSEWHERE CLASSIFIED 08/17/2018 NOLBERTO THRASHER MD Ot L97.222 NON-PRESSURE CHRONIC ULCER OF LEFT CALF 08/17/2018 NOLBERTO THRASHER MD Ot 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 08/21/2018 NOLBERTO THRASHER MD Ot 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 [facility] 08/21/2018 NOLBERTO THRASHER MD Ot 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 08/21/2018 NOLBERTO THRASHER MD Ot 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 08/21/2018 NOLBERTO THRASHER MD, Ot I89 .0 LYMPHEDEMA, NOT ELSEWHERE CLASSIFIED 08/21/2018 NOLBERTO THRASHER MD Ot L97.222 NON-PRESSURE CHRONIC ULCER OF LEFT CALF 08/22/2018 NOLBERTO THRASHER MD Ot 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 08/22/2018 NOLBERTO THRASHER MD Ot 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 [facility] 08/22/2018 NOLBERTO THRASHER MD Ot 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 08/22/2018 NOLBERTO THRASHER MD Ot 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 08/22/2018 NOLBERTO THRASHER MD, Ot I89 .0 LYMPHEDEMA, NOT ELSEWHERE CLASSIFIED 08/22/2018 NOLBERTO THRASHER MD Ot L97.222 NON-PRESSURE CHRONIC ULCER OF LEFT CALF 08/22/2018 NOLBERTO THRASHER MD Ot 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 08/23/2018 NOLBERTO THRASHER MD Ot 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 08/23/2018 NOLBERTO THRASHER MD Ot L97.222 NON-PRESSURE CHRONIC ULCER OF LEFT CALF 08/30/2018 NOLBERTO THRASHER MD Ot 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 [facility] 08/30/2018 NOLBERTO THRASHER MD Ot 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 08/30/2018 NOLBERTO THRASHER MD Ot 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 08/30/2018 NOLBERTO THRASHER MD Ot I89 .0 LYMPHEDEMA, NOT ELSEWHERE CLASSIFIED 08/30/2018 NOLBERTO THRASHER MD Ot L97.222 NON-PRESSURE CHRONIC ULCER OF LEFT CALF 08/31/2018 NOLBERTO THRASHER MD Ot 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 08/31/2018 NOLBERTO THRASHER MD Ot 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 08/31/2018 NOLBERTO THRASHER MD Ot 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 08/31/2018 NOLBERTO THRASHER MD Ot I89 .0 LYMPHEDEMA, NOT ELSEWHERE CLASSIFIED 08/31/2018 NOLBERTO THRASHER MD Ot L97.222 NON-PRESSURE CHRONIC ULCER OF LEFT CALF 09/01/2018 NOLBERTO THRASHER MD Ot 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 [facility] 09/01/2018 NOLBERTO THRASHER MD Ot 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 [facility] 09/01/2018 NOLBERTO THRASHER MD Ot 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 09/01/2018 NOLBERTO THRASHER MD Ot I89 .0 LYMPHEDEMA, NOT ELSEWHERE CLASSIFIED 09/01/2018 NOLBERTO THRASHER MD, Ot L97.222 NON-PRESSURE CHRONIC ULCER OF LEFT CALF 09/01/2018 NOLBERTO THRASHER MD, Ot 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 09/01/2018 NOLBERTO THRASHER MD Ot 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 [facility] 09/01/2018 NOLBERTO THRASHER MD, Ot L97.222 NON-PRESSURE CHRONIC ULCER OF LEFT CALF 09/01/2018 NOLBERTO THRASHER MD Ot 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 [facility] 09/01/2018 NOLBERTO THRASHER MD Ot 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 [facility] 09/01/2018 NOLBERTO THRASHER MD Ot 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 09/01/2018 NOLBERTO THRASHER MD Ot 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 09/01/2018 NOLBERTO THRASHER MD Ot I89 .0 LYMPHEDEMA, NOT ELSEWHERE CLASSIFIED 09/01/2018 NOLBERTO THRASHER MD Ot L97.222 NON-PRESSURE CHRONIC ULCER OF LEFT CALF 09/01/2018 NOLBERTO THRASHER MD Ot 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 09/01/2018 W 599.0 URIN VICENTA TRACT INFECTION, SITE NOT SPECIFIED 09/01/2018 W 724.2 LUMBAGO 09/01/2018 W M54.5 LOW BACK PAIN 09/01/2018 W N39.0 URIN VICENTA TRACT INFECTION, SITE NOT SPECIFIED 09/04/2018 NOLBERTO THRASHER MD Ot 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 [facility] 09/04/2018 NOLBERTO THRASHER MD, Ot 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 09/04/2018 NOLBERTO THRASHER MD Ot 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 09/04/2018 NOLBERTO THRASHER MD Ot I89 .0 LYMPHEDEMA, NOT ELSEWHERE CLASSIFIED 09/04/2018 NOLBERTO THRASHER MD Ot L97.222 NON-PRESSURE CHRONIC ULCER OF LEFT CALF 09/06/2018 NOLBERTO THRASHER MD Ot 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 [facility] 09/06/2018 NOLBERTO THRASHER MD, Ot 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 09/06/2018 NOLBEROT THRASHER MD, Ot 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 09/06/2018 NOLBERTO THRASHER MD, Ot I89 .0 LYMPHEDEMA, NOT ELSEWHERE CLASSIFIED 09/06/2018 NOLBERTO THRASHER MD, Ot L97.222 NON-PRESSURE CHRONIC ULCER OF LEFT CALF 09/11/2018 NOLBERTO THRASHER MD Ot 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 [facility] 09/11/2018 NOLBERTO THRASHER MD Ot 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 09/11/2018 NOLBERTO THRASHER MD Ot 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 09/11/2018 NOLBERTO THRASHER MD, Ot I89 .0 LYMPHEDEMA, NOT ELSEWHERE CLASSIFIED 09/11/2018 NOLBERTO THRASHER MD Ot L97.222 NON-PRESSURE CHRONIC ULCER OF LEFT CALF 09/13/2018 NOLBERTO THRASHER MD Ot 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 [facility] 09/13/2018 NOLBERTO THRASHER MD Ot 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 09/13/2018 NOLBERTO THRASHER MD, Ot 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 09/13/2018 NOLBERTO THRASHER MD Ot I89 .0 LYMPHEDEMA, NOT ELSEWHERE CLASSIFIED 09/13/2018 NOLBERTO THRASHER MD Ot L97.222 NON-PRESSURE CHRONIC ULCER OF LEFT CALF 09/15/2018 NOLBERTO THRASHER MD Ot 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 [facility] 09/15/2018 NOLBERTO THRASHER MD Ot 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 09/15/2018 NOLBERTO THRASHER MD Ot 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 09/15/2018 NOLBERTO THRASHER MD Ot I89 .0 LYMPHEDEMA, NOT ELSEWHERE CLASSIFIED 09/15/2018 NOLBERTO THRASHER MD, Ot L97.222 NON-PRESSURE CHRONIC ULCER OF LEFT CALF 09/21/2018 NOLBERTO THRASHER MD Ot 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 [facility] 09/21/2018 NOLBERTO THRASHER MD, Ot 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 09/21/2018 NOLBERTO THRASHER MD Ot 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 09/21/2018 NOLBERTO THRASHER MD, Ot I89 .0 LYMPHEDEMA, NOT ELSEWHERE CLASSIFIED 09/21/2018 NOLBERTO THRASHER MD, Ot L97.222 NON-PRESSURE CHRONIC ULCER OF LEFT CALF 09/21/2018 NOLBERTO THRASHER MD Ot 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 [facility] 09/21/2018 NOLBERTO THRASHER MD, Ot 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 09/21/2018 NOLBERTO THRASHER MD Ot 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 09/21/2018 NOLBERTO THRASHER MD, Ot I89 .0 LYMPHEDEMA, NOT ELSEWHERE CLASSIFIED 09/21/2018 NOLBERTO THRASHER MD, Ot L97.222 NON-PRESSURE CHRONIC ULCER OF LEFT CALF 09/27/2018 NOLBERTO THRASHER MD Ot 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 [facility] 09/27/2018 NOLBEROT THRASHER MD, Ot 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 09/27/2018 NOLBERTO THRASHER MD Ot 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 09/27/2018 NOLBERTO THRASHER MD, Ot I89 .0 LYMPHEDEMA, NOT ELSEWHERE CLASSIFIED 09/27/2018 NOLEBRTO THRASHER MD Ot L97.222 NON-PRESSURE CHRONIC ULCER OF LEFT CALF 10/26/2018 IVETH ORTIZ W 041.81 MYCOPLASMA INFECTION IN CONDITIONS CLASSIFIED ELSEWHERE AND OF UNSPECIFIED SITE 10/26/2018 IVETH ORTIZ A49.3 MYCOPLASMA INFECTION, UNSPECIFIED SITE 10/26/2018 IVETH ORTIZ W B96.0 MYCOPLASMA PNEUMONIAE THE CA[facility]AS[facility] 06/28/2019 Rika Berumen W 599.0 URINARY TRACT INFECTION, SITE NOT SPECIFIED 06/28/2019 Rika Berumen N39.0 URINARY TRACT INFECTION, SITE NOT SPECIFIED 06/29/2019 Rika Berumen 599.0 URINARY TRACT INFECTION, SITE NOT SPECIFIED 06/29/2019 Rika Berumen W N39.0 URINARY TRACT INFECTION, SITE NOT SPECIFIED 07/02/2019 Rika Berumen W 599.0 URINARY TRACT INFECTION, SITE NOT SPECIFIED 07/02/2019 Rika Berumen N39.0 URINARY TRACT INFECTION, SITE NOT SPECIFIED Procedures There is no data. Results Test Result Range Comprehensive Metabolic Panel - 10/11/16 10:28 Albumin 3.9 g/dL 3.6-5.1 ALP 63 U/L 35-130 ALT 18 U/L 6-45 Anion Gap 13 6-14 AST 22 U/L 2-40 BUN 13 mg/dL 5-25 Calcium 9.5 mg/dL 8.3-10.4 Chloride 103 mmol/L 95-114 CO2 29 mEq/L 22-33 Creat 0.86 mg/dL 0.50-1.50 eGFR 63 mL/min/1.73m2 >59 Globulin 4.2 g/dL 2.3-3.5 Glucose 87 mg/dL 70-110 Osmo 291 280-295 Potassium 4.3 mmol/L 3.5-5.3 Sodium 141 mmol/L 134-148 TBil 0.8 mg/dL 0.2-1.2 TP 8.1 g/dL 6.0-8.3 Lipid Panel - 04/03/18 08:43 C/HDL 3.7 3.7-6.7 Cholesterol 201 mg/dL 100-240 HDL 54 mg/dL 30-85 LDL-Calculated 131 mg/dL 0-100 Trig 81 mg/dL 35-160 VLDL 16 mg/dL 0-42 Complete blood count (CBC) with automate d white blood cell (WBC) differential - 07/28/18 11:15 Blood leukocytes automated count (number/volume) 7.0 10*3/uL 4.3-11.0 Blood erythrocytes automated count (number/volume) 4.58 10*6/uL 4.35-5.85 Venous blood hemoglobin measurement (mass/volume) 13.4 g/dL 11.5-16.0 Blood hematocrit (volume fraction) 42 % 35-52 Automated erythrocyte mean corpuscular volume 92 [ foz_us] 80-99 Automated erythrocyte mean corpuscular h emoglobin (mass per erythrocyte) 29 pg 25-34 Automated erythrocyte mean corpuscular h emoglobin concentration measurement (mass/volume) 32 g/dL 32-36 Automated erythrocyte distribution width ratio 13. 7 % 10.0- 14.5 Automated blood platelet count (count/volume) 288 10*3/uL 130-400 Automated blood platelet mean volume measurement 9.5 [foz_us] 7.4-10.4 Automated blood neutrophils/100 leukocytes 60 % 42-75 Automated blood lymphocytes/100 leukocytes 29 % 12-44 Blood monocytes/100 leukocytes 9 % 0-12 Automated blood eosinophils/100 leukocytes 2 % 0-10 Automated blood basophils/100 leukocytes 0 % 0-10 Blood neutrophils automated count (number/volume) 4.2 10*3 1.8-7.8 Blood lymphocytes automated count (number/volume) 2.0 10*3 1.0-4.0 Blood monocytes automated count (number/volume) 0. 6 10*3 0.0-1.0 Automated eosinophil count 0.1 10*3/uL 0 .0-0.3 Automated blood basophil count (count/volume) 0.0 10*3/uL 0.0-0.1 Comprehensive metabolic panel - 07/28/18 11:15 Serum or plasma sodium measurement (moles/volume) 142 mmol/L 135-145 Serum or plasma potassium measurement (moles/volume) 4.0 mmol/L 3.6-5.0 Serum or plasma chloride measurement (moles/volume) 107 mmol/L 98-107 Carbon dioxide 26 mmol/L 21-32 Serum or plasma anion gap determination (moles/volume) 9 mmol/L 5-14 Serum or plasma urea nitrogen measurement (mass/volume ) 16 mg/dL 7-18 Serum or plasma creatinine measurement (mass/volume) 0.83 mg/dL 0.60-1.30 Serum or plasma urea nitrogen/creatinine mass ratio 19 NRG Serum or plasma creatinine measurement w ith calculation of estimated glomerular filtration rate > NRG Serum or plasma glucose measurement (mass/volume) 94 mg/dL 70-105 Serum or plasma calcium measurement (mass/volume) 9.9 mg/dL 8.5-10.1 Serum or plasma total bilirubin measurement (mass/volu me) 0.7 mg/dL 0.1-1.0 Serum or plasma alkaline phosphatase severino surement (enzymatic activity/volume) 68 U/L 40-136 Serum or plasma aspartate aminotransfera se measurement (enzymatic activity/volume) 24 U/L 5-34 Serum or plasma alanine aminotransferase measurement (enzymatic activity/volume) 17 U/L 0-55 Serum or plasma protein measurement (mass/volume) 7.5 g/dL 6.4-8.2 Serum or plasma albumin measurement (mass/volume) 3.9 g/dL 3.2-4.5 CALCIUM CORRECTED 10.0 mg/dL 8.5-10.1 Gram stain microscopy - 08/01/18 14:43 Gram stain microscopy No bacteria seen NRG Bacteria identification in wound by cult ure - 08/01/18 14:43 Bacteria identification in wound by culture [id number] NRG FREE TEXT EXTERNAL SUSCEPTIBILTIY REPORTED [id number] NRG QUANTITY OF GROWTH Moderate Growth NRG FREE TEXT ENTRY 2 ID REPORTED 08/02/18 08:05 NRG CALL POSITIVES (F1 HELP) METHICILLIN SENSITIVE NRG RML Sensitivity Panel - 08/01/18 14:43 Oxacillin susceptibility test by minimum inhibitory co ncentration 0.5 NRG Clindamycin susceptibility test by minimum inhibitory concentration <= NRG Erythromycin susceptibility test by minimum inhibitory concentration <= NRG Trimethoprim/sulfamethoxazole susceptibi lity test by minimum inhibitoryconcentration S NRG Vancomycin susceptibility test by minimum inhibitory c oncentration 1 NRG Levofloxacin susceptibility test by minimum inhibitory concentration <= NRG Rifampin susceptibility test by minimum inhibitory con centration <= NRG Cefazolin susceptibility test by minimum inhibitory co ncentration <= NRG Linezolid susceptibility test by minimum inhibitory co ncentration 2 NRG Moxifloxacin susceptibility test by minimum inhibitory concentration <= NRG Minocycline susc YOSELIN <= NRG Urine Culture - 09/01/18 11:50 PRELIM CULTURE RESULTS >100,000 Gram Negativ e YOSELIN / ID to Follow MEDIA PLATED Setup at 13:32 on 09/01/2018 CULTURE SOURCE void Sensi - 09/01/18 11:50 FINAL CULTURE RESULTS Escherichia coli (Isolate 1) Ampicillin/Sulbactam <=8/4 Ampicillin <=8 Amoxicillin/K Clavulanate <=8/4 Ceftriaxone <=8 Ciprofloxacin <=1 Nitrofurantoin <=32 Gentamicin <=4 Levofloxacin <=2 Trimethoprim/ Sulfamethoxazole <=2/38 Tetracycline <=4 Amikacin <=16 Aztreonam 16 Ceftazidime <=1 Ceftazidime/K Clavulanate <=0.25 Cephalothin <=8 Cefotaxime <=2 Cefotaxime/K Clavulanate <=0.5 Cefoxitin <=8 Cefazolin <=8 Cefepime <=8 Cefuroxime <=4 Ertapenem <=1 Imipenem <=4 Meropenem <=4 Piperacillin/Tazobactam <=16 Piperacillin <=16 Tigecycline <=2 Tobramycin <=4 Mycoplasma - 10/26/18 12:05 Mycoplasma Positive Negative Urinalysis - 10/26/18 12:24 Icotest N/A Negative Urine Volume Urine Volume Sufficient (10mL) Urine-Appearance Clear Clear Urine-Bacteria 1+ Urine-Bilirubin Negative Negative Urine-Blood Negative Negative Urine-Color Yellow Colorless-[place] ow Urine-Epithelial Cells 0-5/HPF Urine-Glucose Negative Negative Urine-Ketones Negative Negative Urine-Leukocytes Negative Negative Urine-Nitrite Negative Negative Urine-Other Urine Saved if Culture Need ed (48hrs from time of collection) Urine-pH 7.5 5-8.5 Urine-Protein Negative Negative Urine-RBC Negative Urine-Specific [place] 1.015 1.000-1 .030 Urine-WBC Negative Urobilinogen 0.2 E.U./dL 0.2-1.0 Comprehensive Metabolic Panel - 06/28/19 12:30 Albumin 4.0 g/dL 3.6-5.1 ALP 82 U/L 35-130 ALT 17 U/L 6-45 Anion Gap 13 6-14 AST 20 U/L 2-40 BUN 12 mg/dL 5-25 Calcium 9.4 mg/dL 8.3-10.4 Chloride 105 mmol/L 95-114 CO2 26 mEq/L 22-33 Creat 0.87 mg/dL 0.50-1.50 eGFR 61 mL/min/1.73m2 >59 Globulin 3.2 g/dL 2.3-3.5 Glucose 97 mg/dL 70-110 Osmo 289 280-295 Potassium 4.3 mmol/L 3.5-5.3 Sodium 140 mmol/L 134-148 TBil 1.3 mg/dL 0.2-1.2 TP 7.2 g/dL 6.0-8.3 Mycoplasma - 06/28/19 12:30 Mycoplasma Positive Negative Urine Culture - 06/28/19 12:30 PRELIM CULTURE RESULTS >100,000 Gram Negativ e 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 MEDIA PLATED Setup at 13:00 on 06/28/2019 CULTURE SOURCE hat collection Sensi - 06/28/19 12:30 FINAL CULTURE RESULTS Escherichia coli (Isolate 1) Ampicillin/Sulbactam <=8/4 Ampicillin <=8 Amoxicillin/K Clavulanate <=8/4 Ceftriaxone <=8 Ciprofloxacin <=1 Nitrofurantoin <=32 Gentamicin <=4 Levofloxacin <=2 Trimethoprim/ Sulfamethoxazole <=2/38 Tetracycline <=4 Amikacin <=16 Aztreonam <=8 Ceftazidime <=1 Ceftazidime/K Clavulanate <=0.25 Cephalothin <=8 Cefotaxime <=2 Cefotaxime/K Clavulanate <=0.5 Cefoxitin <=8 Cefazolin <=8 Cefepime <=8 Cefuroxime <=4 Ertapenem <=1 Imipenem <=4 Meropenem <=4 Piperacillin/Tazobactam <=16 Piperacillin <=16 Tigecycline <=2 Tobramycin <=4 MRSA Screen - 06/28/19 12:30 FINAL CULTURE RESULTS MRSA Negative Nasal Culture MEDIA PLATED Setup at 12:50 on 06/28/2019 Blood Culture - 06/28/19 14:05 PRELIM CULTURE RESULTS Blood Culture Negativ e, No Growth Day 1 FINAL CULTURE RESULTS Blood Culture Negative , No Growth Day 5 MEDIA PLATED Setup at 14:46 on 06/28/2019X0 [id number] Culture Media Position B25 CULTURE SOURCE left wrist iv start Influenza - 06/28/19 14:10 Influenza NEGATIVE FOR A and B 0.00-0.0 0 Lactic Acid - 06/28/19 14:10 Lactic Acid 26.6 mg/dL 4.5-19.8 BNP - 06/28/19 14:10 BNP 482.60 pg/ml 0.00-100.00 Blood Culture - 06/28/19 14:10 PRELIM CULTURE RESULTS Blood Culture Negativ e, No Growth Day 1 FINAL CULTURE RESULTS Blood Culture Negative , No Growth Day 5 MEDIA PLATED Setup at 14:45 on 06/28/2019X0 [id number] Culture Media Position B27 CULTURE SOURCE right AC EKG - 06/28/19 14:21 EKG Complete Arterial Blood Gas - 06/28/19 16:22 Base -1.00 mmol/L 1.80-4.20 HCO3 23 mmol/L 20-31 O2 Sat 90 RM AIR % 95-100 pCO2 34 mm/Hg 35-45 pH 7.44 7.35-7.45 PO2 56 mm/Hg 80-95 Comprehensive Metabolic Panel - 06/28/19 17:12 Albumin 3.5 g/dL 3.6-5.1 ALP 73 U/L 35-130 ALT 17 U/L 6-45 Anion Gap 13 6-14 AST 18 U/L 2-40 BUN 12 mg/dL 5-25 Calcium 8.8 mg/dL 8.3-10.4 Chloride 109 mmol/L 95-114 CO2 23 mEq/L 22-33 Creat 0.79 mg/dL 0.50-1.50 eGFR 69 mL/min/1.73m2 >59 Globulin 3.0 g/dL 2.3-3.5 Glucose 99 mg/dL 70-110 Osmo 291 280-295 Potassium 3.7 mmol/L 3.5-5.3 Sodium 141 mmol/L 134-148 TBil 0.9 mg/dL 0.2-1.2 TP 6.5 g/dL 6.0-8.3 Comprehensive Metabolic Panel - 06/29/19 05:15 Albumin 3.2 g/dL 3.6-5.1 ALP 63 U/L 35-130 ALT 15 U/L 6-45 Anion Gap 12 6-14 AST 16 U/L 2-40 BUN 12 mg/dL 5-25 Calcium 8.2 mg/dL 8.3-10.4 Chloride 110 mmol/L 95-114 CO2 24 mEq/L 22-33 Creat 0.80 mg/dL 0.50-1.50 eGFR 68 mL/min/1.73m2 >59 Globulin 2.7 g/dL 2.3-3.5 Glucose 93 mg/dL 70-110 Osmo 293 280-295 Potassium 4.0 mmol/L 3.5-5.3 Sodium 142 mmol/L 134-148 TBil 0.8 mg/dL 0.2-1.2 TP 5.9 g/dL 6.0-8.3 Arterial Blood Gas - 06/29/19 06:45 Base -2.00 mmol/L 1.80-4.20 HCO3 22 mmol/L 20-31 O2 Sat 92 % 95-100 pCO2 35 mm/Hg 35-45 pH 7.42 7.35-7.45 PO2 62 mm/Hg 80-95 Comprehensive Metabolic Panel - 06/30/19 05:49 Albumin 3.7 g/dL 3.6-5.1 ALP 69 U/L 35-130 ALT 17 U/L 6-45 Anion Gap 13 6-14 AST 18 U/L 2-40 BUN 11 mg/dL 5-25 Calcium 9.1 mg/dL 8.3-10.4 Chloride 107 mmol/L 95-114 CO2 23 mEq/L 22-33 Creat 0.80 mg/dL 0.50-1.50 eGFR 68 mL/min/1.73m2 >59 Globulin 3.1 g/dL 2.3-3.5 Glucose 93 mg/dL 70-110 Osmo 286 280-295 Potassium 4.4 mmol/L 3.5-5.3 Sodium 139 mmol/L 134-148 TBil 0.6 mg/dL 0.2-1.2 TP 6.8 g/dL 6.0-8.3 Comprehensive Metabolic Panel - 07/01/19 05:20 Albumin 3.1 g/dL 3.6-5.1 ALP 72 U/L 35-130 ALT 16 U/L 6-45 Anion Gap 14 6-14 AST 17 U/L 2-40 BUN 11 mg/dL 5-25 Calcium 9.1 mg/dL 8.3-10.4 Chloride 105 mmol/L 95-114 CO2 25 mEq/L 22-33 Creat 0.75 mg/dL 0.50-1.50 eGFR 73 mL/min/1.73m2 >59 Globulin 3.1 g/dL 2.3-3.5 Glucose 89 mg/dL 70-110 Osmo 288 280-295 Potassium 4.1 mmol/L 3.5-5.3 Sodium 140 mmol/L 134-148 TBil 0.9 mg/dL 0.2-1.2 TP 6.2 g/dL 6.0-8.3 Comprehensive Metabolic Panel - 07/02/19 05:25 Albumin 3.6 g/dL 3.6-5.1 ALP 79 U/L 35-130 ALT 23 U/L 6-45 Anion Gap 15 6-14 AST 32 U/L 2-40 BUN 12 mg/dL 5-25 Calcium 9.0 mg/dL 8.3-10.4 Chloride 103 mmol/L 95-114 CO2 26 mEq/L 22-33 Creat 0.84 mg/dL 0.50-1.50 eGFR 64 mL/min/1.73m2 >59 Globulin 2.9 g/dL 2.3-3.5 Glucose 97 mg/dL 70-110 Osmo 289 280-295 Potassium 4.0 mmol/L 3.5-5.3 Sodium 140 mmol/L 134-148 TBil 0.7 mg/dL 0.2-1.2 TP 6.5 g/dL 6.0-8.3 Comprehensive metabolic panel - 07/03/19 06:00 Serum or plasma sodium measurement (moles/volume) 136 mmol/L 135-145 Serum or plasma potassium measurement (moles/volume) 4.1 mmol/L 3.6-5.0 Serum or plasma chloride measurement (moles/volume) 102 mmol/L 98-107 Carbon dioxide 24 mmol/L 21-32 Serum or plasma anion gap determination (moles/volume) 10 mmol/L 5-14 Serum or plasma urea nitrogen measurement (mass/volume ) 8 mg/dL 7-18 Serum or plasma creatinine measurement (mass/volume) 0.74 mg/dL 0.60-1.30 Serum or plasma urea nitrogen/creatinine mass ratio 11 NRG Serum or plasma creatinine measurement w ith calculation of estimated glomerular filtration rate > NRG Serum or plasma glucose measurement (mass/volume) 91 mg/dL 70-105 Serum or plasma calcium measurement (mass/volume) 9.5 mg/dL 8.5-10.1 Serum or plasma total bilirubin measurement (mass/volu me) 3.4 mg/dL 0.1-1.0 Serum or plasma alkaline phosphatase severino surement (enzymatic activity/volume) 209 U/L 40-136 Serum or plasma aspartate aminotransfera se measurement (enzymatic activity/volume) 433 U/L 5-34 Serum or plasma alanine aminotransferase measurement (enzymatic activity/volume) 318 U/L 0-55 Serum or plasma protein measurement (mass/volume) 7.4 g/dL 6.4-8.2 Serum or plasma albumin measurement (mass/volume) 3.7 g/dL 3.2-4.5 CALCIUM CORRECTED 9.7 mg/dL 8.5-10.1 Complete blood count (CBC) with automate d white blood cell (WBC) differential - 07/03/19 06:15 Blood leukocytes automated count (number/volume) 6.3 10*3/uL 4.3-11.0 Blood erythrocytes automated count (number/volume) 4.54 10*6/uL 4.35-5.85 Venous blood hemoglobin measurement (mass/volume) 13.1 g/dL 11.5-16.0 Blood hematocrit (volume fraction) 41 % 35-52 Automated erythrocyte mean corpuscular volume 91 [ foz_us] 80-99 Automated erythrocyte mean corpuscular h emoglobin (mass per erythrocyte) 29 pg 25-34 Automated erythrocyte mean corpuscular h emoglobin concentration measurement (mass/volume) 32 g/dL 32-36 Automated erythrocyte distribution width ratio 13. 5 % 10.0- 14.5 Automated blood platelet count (count/volume) 305 10*3/uL 130-400 Automated blood platelet mean volume measurement 10.2 [foz_us] 7.4-10.4 Automated blood neutrophils/100 leukocytes 61 % 42-75 Automated blood lymphocytes/100 leukocytes 19 % 12-44 Blood monocytes/100 leukocytes 15 % 0-12 Automated blood eosinophils/100 leukocytes 4 % 0-10 Automated blood basophils/100 leukocytes 1 % 0-10 Blood neutrophils automated count (number/volume) 3.9 10*3 1.8-7.8 Blood lymphocytes automated count (number/volume) 1.2 10*3 1.0-4.0 Blood monocytes automated count (number/volume) 1. 0 10*3 0.0-1.0 Automated eosinophil count 0.3 10*3/uL 0 .0-0.3 Automated blood basophil count (count/volume) 0.0 10*3/uL 0.0-0.1 Automated blood complete blood count (he mogram) panel - 07/06/19 05:13 Blood leukocytes automated count (number/volume) 8.4 10*3/uL 4.3-11.0 Blood erythrocytes automated count (number/volume) 4.04 10*6/uL 4.35-5.85 Venous blood hemoglobin measurement (mass/volume) 11.9 g/dL 11.5-16.0 Blood hematocrit (volume fraction) 37 % 35-52 Automated erythrocyte mean corpuscular volume 92 [ foz_us] 80-99 Automated erythrocyte mean corpuscular h emoglobin (mass per erythrocyte) 29 pg 25-34 Automated erythrocyte mean corpuscular h emoglobin concentration measurement (mass/volume) 32 g/dL 32-36 Automated erythrocyte distribution width ratio 13. 8 % 10.0- 14.5 Automated blood platelet count (count/volume) 340 10*3/uL 130-400 Automated blood platelet mean volume measurement 9.4 [foz_us] 7.4-10.4 Comprehensive metabolic panel - 07/06/19 05:13 Serum or plasma sodium measurement (moles/volume) 138 mmol/L 135-145 Serum or plasma potassium measurement (moles/volume) 4.3 mmol/L 3.6-5.0 Serum or plasma chloride measurement (moles/volume) 102 mmol/L 98-107 Carbon dioxide 27 mmol/L 21-32 Serum or plasma anion gap determination (moles/volume) 9 mmol/L 5-14 Serum or plasma urea nitrogen measurement (mass/volume ) 18 mg/dL 7-18 Serum or plasma creatinine measurement (mass/volume) 1.04 mg/dL 0.60-1.30 Serum or plasma urea nitrogen/creatinine mass ratio 17 NRG Serum or plasma creatinine measurement w ith calculation of estimated glomerular filtration rate 50 NRG Serum or plasma glucose measurement (mass/volume) 100 mg/dL 70-105 Serum or plasma calcium measurement (mass/volume) 8.9 mg/dL 8.5-10.1 Serum or plasma total bilirubin measurement (mass/volu me) 0.6 mg/dL 0.1-1.0 Serum or plasma alkaline phosphatase severino surement (enzymatic activity/volume) 159 U/L 40-136 Serum or plasma aspartate aminotransfera se measurement (enzymatic activity/volume) 89 U/L 5-34 Serum or plasma alanine aminotransferase measurement (enzymatic activity/volume) 136 U/L 0-55 Serum or plasma protein measurement (mass/volume) 6.4 g/dL 6.4-8.2 Serum or plasma albumin measurement (mass/volume) 3.2 g/dL 3.2-4.5 CALCIUM CORRECTED 9.5 mg/dL 8.5-10.1 Magnesium - 07/06/19 05:13 Magnesium 2.2 mg/dL 1.6-2.4 Automated blood complete blood count (he mogram) panel - 07/09/19 06:45 Blood leukocytes automated count (number/volume) 9.1 10*3/uL 4.3-11.0 Blood erythrocytes automated count (number/volume) 4.45 10*6/uL 4.35-5.85 Venous blood hemoglobin measurement (mass/volume) 13.1 g/dL 11.5-16.0 Blood hematocrit (volume fraction) 41 % 35-52 Automated erythrocyte mean corpuscular volume 92 [ foz_us] 80-99 Automated erythrocyte mean corpuscular h emoglobin (mass per erythrocyte) 29 pg 25-34 Automated erythrocyte mean corpuscular h emoglobin concentration measurement (mass/volume) 32 g/dL 32-36 Automated erythrocyte distribution width ratio 13. 6 % 10.0- 14.5 Automated blood platelet count (count/volume) 368 10*3/uL 130-400 Automated blood platelet mean volume measurement 10.0 [foz_us] 7.4-10.4 Comprehensive metabolic panel - 07/09/19 06:45 Serum or plasma sodium measurement (moles/volume) 136 mmol/L 135-145 Serum or plasma potassium measurement (moles/volume) 4.5 mmol/L 3.6-5.0 Serum or plasma chloride measurement (moles/volume) 101 mmol/L 98-107 Carbon dioxide 25 mmol/L 21-32 Serum or plasma anion gap determination (moles/volume) 10 mmol/L 5-14 Serum or plasma urea nitrogen measurement (mass/volume ) 26 mg/dL 7-18 Serum or plasma creatinine measurement (mass/volume) 1.11 mg/dL 0.60-1.30 Serum or plasma urea nitrogen/creatinine mass ratio 23 NRG Serum or plasma creatinine measurement w ith calculation of estimated glomerular filtration rate 46 NRG Serum or plasma glucose measurement (mass/volume) 107 mg/dL 70-105 Serum or plasma calcium measurement (mass/volume) 9.5 mg/dL 8.5-10.1 Serum or plasma total bilirubin measurement (mass/volu me) 0.5 mg/dL 0.1-1.0 Serum or plasma alkaline phosphatase severino surement (enzymatic activity/volume) 135 U/L 40-136 Serum or plasma aspartate aminotransfera se measurement (enzymatic activity/volume) 48 U/L 5-34 Serum or plasma alanine aminotransferase measurement (enzymatic activity/volume) 89 U/L 0-55 Serum or plasma protein measurement (mass/volume) 7.5 g/dL 6.4-8.2 Serum or plasma albumin measurement (mass/volume) 3.7 g/dL 3.2-4.5 CALCIUM CORRECTED 9.7 mg/dL 8.5-10.1 Encounters ACCT No. Visit Date/Time Discharge Status Pt. Type Provider Facility Loc./Unit Complaint [id number] 07/05/2019 00:00:00 07/05/2019 06:32 :00 DIS Outpatient DWAYNE SORIANO [id number] 06/28/2019 13:55:00 07/02/2019 17:43 :00 DIS Inpatient Rika Berumen [facility] enter [facility] [id number] 06/28/2019 11:52:00 06/28/2019 23:59 :00 DIS Outpatient DWAYNE SORIANO [id number] 06/13/2019 10:46:00 06/13/2019 23:59 :00 DIS Outpatient DWAYNE SORIANO [id number] 05/30/2019 10:55:00 05/30/2019 23:59 :00 DIS Outpatient Baldo Ferreira [id number] 04/05/2019 13:59:00 04/05/2019 23:59: 00 DIS Outpatient GISELLA BECK [id number] 02/22/2019 09:44:00 02/22/2019 23:59: 00 DIS Outpatient Baldo Ferreira [id number] 10/26/2018 11:46:00 10/26/2018 14:40: 00 DIS Outpatient IVETH ORTIZ [facility] [id number] 09/01/2018 13:25:00 09/01/2018 23:59: 00 DIS Outpatient Shaina Ball [id number] 04/03/2018 08:40:00 04/03/2018 23:59: 00 DIS Outpatient Baldo Ferreira [id number] 06/02/2017 10:01:00 06/02/2017 10:17: 00 DIS Outpatient Scott Lima [id number] 05/28/2017 23:19:00 05/29/2017 00:43: 00 DIS Outpatient Berny Panda [id number] 02/28/2017 13:10:00 02/28/2017 23:59: 00 DIS Outpatient KARENA RAGSDALE [id number] 10/15/2016 12:45:00 11/17/2016 10:45: 00 DIS Outpatient Baldo Ferreira [id number] 10/11/2016 10:17:00 10/11/2016 23:59: 00 DIS Outpatient Baldo Ferreira [id number] 09/08/2016 09:52:00 09/08/2016 23:59: 00 DIS Outpatient Shawn De Los Santos [id number] 04/28/2016 10:24:00 04/28/2016 23:59: 00 DIS Outpatient Baldo Ferreira [id number] 09/01/2018 08:02:00 Document Registration [id number] 07/27/2018 10:22:00 Document Registration [id number] 03/29/2018 10:45:00 Document Registration [id number] 03/08/2018 09:50:40 Document Registration [id number] 06/16/2017 09:20:00 Document Registration [id number] 06/09/2017 10:35:00 Document Registration [id number] 05/29/2017 03:05:57 Document Registration [id number] 09/01/2018 09:57:00 23:59:59 CLS Outpatient NOLBERTO THRASHER MD [facility] [id number] 08/25/2018 09:53:00 23:59:59 CLS Outpatient NOLBERTO THRASHER MD [facility] [id number] 08/18/2018 10:01:00 23:59:59 CLS Outpatient NOLBERTO THRASHER MD [facility] [id number] 08/11/2018 10:04:00 23:59:59 CLS Outpatient NOLBERTO THRASHER MD [facility] [id number] 08/01/2018 14:09:00 23:59:59 CLS Outpatient NOLBERTO THRASHER MD [facility] [id number] 07/28/2018 11:06:00 019 23:59:59 CLS Outpatient NOLBERTO THRASHER MD [facility] LAB L97.222, L97.322 [id number] 07/28/2018 09:14:00 019 23:59:59 CLS Outpatient NOLBERTO THRASHER MD [facility] [id number] 07/02/2019 13:58:[address] Inpatient RIKA BERUMEN DO [facility] IRF SEPSIS
[2019-07-11] MEDS: ASPIRIN E.C. 81 MG (ECOTRIN) TAB PO SCH (09:15)
[2019-07-11] MEDS: LOSARTAN 100 MG (COZAAR) TABLET PO SCH (09:15)
[2019-07-11] MEDS: OXYBUTYNIN (DITROPAN) 5 MG TAB PO SCH (09:15)
[2019-07-11] MEDS: FUROSEMIDE 40 MG (LASIX) TAB PO SCH (09:15)
[2019-07-11] MEDS: CALCIUM CARB + VIT D 600 MG (CALCARB + D) TAB PO SCH (09:15)
[2019-07-11] MEDS: TIMOLOL MALEATE 0.5% 5 ML (TIMOPTIC) BTL OU SCH (09:15)
[2019-07-11] MEDS: DOCUSATE SODIUM 100 MG (COLACE) CAP PO SCH (09:16)
[2019-07-11] MEDS: polyethylene glycoL POWDER 17 GM (MIRALAX) PACK PO SCH (09:16)
[2019-07-11] MEDS: SENNA W/DOCUSATE (SENOKOT S) TABLET PO SCH (09:16)
--- NOTE | 2019-07-11 09:17 | Therapy Team Discharge Summary ---
Therapy Discharge Summary Discharge Recommendations Date of Discharge Occupational Therapy Pt admits to ARU with sepsis dx. Pt demonstrated weakness in UE's, was stand-by to CGA for showering, UB and footwear. Pt required max A for LB dressing with increased edema BLE. Pt and OT worked towards higher functional IND within ADL tasks through functional exercises, endurance/ strength/ ADL training, AE use, and edema management techniques. Pt does not reach all LTG's but d/c's with improvement in all ADL areas: IND with UB/ footwear, s/u LB dressing, and SUP toileting and showering tasks. D/c OT at this time with DME recommendations of tub bench for increased safety/ success within tub-shower transfers. D/c pt. Decreased Activ Tolerance, Edema, Impaired I ADL's PT Detention Goals Detention Goals PT Narcotics Agent Goals Time Frame: Jul 17, 2019 Roll Left to Right (QC): 6 Sit to Lying (QC): 6 Lying-Sitting on Side/Bed(QC): 6 Sit to Stand (QC): 6 Chair/Plq-is-Etuux Xfer(QC): 6 Car Transfer (QC): 5 Does the Patient Walk: Yes Walk 10 feet (QC): 6 Walk 10ft-Uneven Surface(QC): 5 Walk 50ft with 2 Turns (QC): 6 Walk 150 ft (QC): 6 Does the Pt use WC or Scooter?: No 1 Step (curb) (QC): 5 4 Steps (QC): 4 12 Steps (QC): 9 Picking up an Object (QC): 4 OT Narcotics Agent Goals Detention Goals Time Frame: Jul 16, 2019 Eating (QC): 6 (met) Oral Hygiene (QC): 6 (met) Shower/Bathe Self (QC): 6 Upper Body Dressing (QC): 6 (met) Lower Body Dressing (QC): 6 On/Off Footwear (QC): 6 (met) Toileting Hygiene (QC): 6 Toilet/Commode Transfer (QC): 6 Additional Goals: 1-Demonstrate ADL Tasks, 2-Verbalize Understanding, 3- ImproveStrength/Chrissy 1=Demonstrate adherence to instructed precautions during ADL tasks. 2=Patient will verbalize/demonstrate understanding of assistive devices/modifications for ADL. 3=Patient will improve strength/tolerance for activity to enable patient to perform ADL's. KODI LEO OTR Jul 11, 2019 09:17
--- NOTE | 2019-07-11 09:38 | Discharge Summary ---
Diagnosis/Chief Complaint Date of Admission Jul 02, 2019 at 13:58 Date of Discharge Discharge Date: Jul 11, 2019 Discharge Diagnosis Assessment: New O2 dependence Debility following Mycoplasma and UTI PHTN Edema Chronic right foot drop uses AFO Edema HTN OAB Crackles on lung bases Plan: IRF protocol Edema treatment with wide alan wraps O2 Much improved Monitor stamina on O2 IS (1) Debility (2) COPD (chronic obstructive pulmonary disease) Qualifiers: Qualified Codes: J44.9 - Chronic obstructive pulmonary disease, unspecified (3) Oxygen dependent (4) Hypoxemia (5) Edema (6) Hypertension (7) H/O mycoplasma pneumonia (8) Hx: UTI (urinary tract infection) (9) Foot drop, right (10) Glaucoma (11) Overactive bladder Discharge Summary Discharge Physical Examination Allergies: Coded Allergies: Sulfa (Sulfonamide Antibiotics) (Verified Allergy, Intermediate, Rash, 07/02/19) acetaminophen (Verified Allergy, Intermediate, Rash, 07/02/19) Vitals & I&Os Vital Signs Date Time Temp Pulse Resp B/P (MAP) Pulse Ox O2 Delivery O2 Flow Rate FiO2 07/11/19 09:38 98 Nasal Cannula 2.00 07/11/19 05:33 36.4 71 20 133/67 (89) General Appearance: Alert, Oriented X3, Cooperative Respiratory: Clear to Auscultation Cardiovascular: Regular Rate Neuro: Normal Gait, Normal Speech, Strength at 5/5 X4 Ext Psych/Mental Status: Mental Status NL Hospital Course Was the Problem List Reviewed?: Yes Hospital Course: Pt had an uneventful hospital course for 10 days after she was moved from [facility] [place] after Mycoplasma and UTI with new onset oxygen dependency. Overall she did very well and Dr. Montiel and Dr. Fregoso both saw her in consultation. She will need a PFT and sleep study at [place] to evaluate the pulmonary hypotension. She did very well placed on Singulair and Advair and overall dramatically improved much better breathing, less dyspnea, maintained on 3 liters of O2 continuously and all those orders were placed with [facility]. She will have home health and she will have close follow up with Dr. Ferreira, Dr. Montiel and Dr. Fregoso. Labs (last 24 hrs) Laboratory Tests 07/03/19 06:00: Sodium Level 136, Potassium Level 4.1, Chloride Level 102, Carbon Dioxide Level 24, Anion Gap 10, Blood Urea Nitrogen 8, Creatinine 0.74, Estimat Glomerular Filtration Rate > 60, BUN/Creatinine Ratio 11, Glucose Level 91, Calcium Level 9.5, Corrected Calcium 9.7, Total Bilirubin 3.4H, Aspartate Amino Transf (AST/SGOT) 433H, Alanine Aminotransferase (ALT/SGPT) 318H, Alkaline Phosphatase 209H, Total Protein 7.4, Albumin 3.7 07/03/19 06:15: White Blood Count 6.3, Red Blood Count 4.54, Hemoglobin 13.1, Hematocrit 41, Mean Corpuscular Volume 91, Mean Corpuscular Hemoglobin 29, Mean Corpuscular Hemoglobin Concent 32, Red Cell Distribution Width 13.5, Platelet Count 305, Mean Platelet Volume 10.2, Neutrophils (%) (Auto) 61, Lymphocytes (%) (Auto) 19, Monocytes (%) (Auto) 15H, Eosinophils (%) (Auto) 4, Basophils (%) (Auto) 1, Neutrophils # (Auto) 3.9, Lymphocytes # (Auto) 1.2, Monocytes # (Auto) 1.0, Eosinophils # (Auto) 0.3, Basophils # (Auto) 0.0 07/06/19 05:13: Sodium Level 138, Potassium Level 4.3, Chloride Level 102, Carbon Dioxide Level 27, Anion Gap 9, Blood Urea Nitrogen 18, Creatinine 1.04, Estimat Glomerular Filtration Rate 50, BUN/Creatinine Ratio 17, Glucose Level 100, Calcium Level 8.9, Corrected Calcium 9.5, Total Bilirubin 0.6, Aspartate Amino Transf (AST/SGOT) 89H, Alanine Aminotransferase (ALT/SGPT) 136H, Alkaline Phosphatase 159H, Total Protein 6.4, Albumin 3.2, White Blood Count 8.4, Red Blood Count 4.04L, Hemoglobin 11.9, Hematocrit 37, Mean Corpuscular Volume 92, Mean Corpuscular Hemoglobin 29, Mean Corpuscular Hemoglobin Concent 32, Red Cell Distribution Width 13.8, Platelet Count 340, Mean Platelet Volume 9.4, Magnesium Level 2.2 07/09/19 06:45: Sodium Level 136, Potassium Level 4.5, Chloride Level 101, Carbon Dioxide Level 25, Anion Gap 10, Blood Urea Nitrogen 26H, Creatinine 1.11, Estimat Glomerular Filtration Rate 46, BUN/Creatinine Ratio 23, Glucose Level 107H, Calcium Level 9 .5, Corrected Calcium 9.7, Total Bilirubin 0.5, Aspartate Amino Transf (AST/SGOT) 48H, Alanine Aminotransferase (ALT/SGPT) 89H, Alkaline Phosphatase 135, Total Protein 7.5, Albumin 3.7, White Blood Count 9.1, Red Blood Count 4.45, Hemoglobin 13.1, Hematocrit 41, Mean Corpuscular Volume 92, Mean Corpuscular Hemoglobin 29, Mean Corpuscular Hemoglobin Concent 32, Red Cell Distribution Width 13.6, Platelet Count 368, Mean Platelet Volume 10.0 Pending Labs Laboratory Tests 07/03/19 06:00: Sodium Level 136, Potassium Level 4.1, Chloride Level 102, Carbon Dioxide Level 24, Anion Gap 10, Blood Urea Nitrogen 8, Creatinine 0.74, Estimat Glomerular Filtration Rate > 60, BUN/Creatinine Ratio 11, Glucose Level 91, Calcium Level 9.5, Corrected Calcium 9.7, Total Bilirubin 3.4, Aspartate Amino Transf (AST/SGOT) 433, Alanine Aminotransferase (ALT/SGPT) 318, Alkaline Phosphatase 209, Total Protein 7.4, Albumin 3.7 07/03/19 06:15: White Blood Count 6.3, Red Blood Count 4.54, Hemoglobin 13.1, Hematocrit 41, Mean Corpuscular Volume 91, Mean Corpuscular Hemoglobin 29, Mean Corpuscular Hemoglobin Concent 32, Red Cell Distribution Width 13.5, Platelet Count 305, Mean Platelet Volume 10.2, Neutrophils (%) (Auto) 61, Lymphocytes (%) (Auto) 19, Monocytes (%) (Auto) 15, Eosinophils (%) (Auto) 4, Basophils (%) (Auto) 1, Neutrophils # (Auto) 3.9, Lymphocytes # (Auto) 1.2, Monocytes # (Auto) 1.0, Eosinophils # (Auto) 0.3, Basophils # (Auto) 0.0 07/06/19 05:13: Sodium Level 138, Potassium Level 4.3, Chloride Level 102, Carbon Dioxide Level 27, Anion Gap 9, Blood Urea Nitrogen 18, Creatinine 1.04, Estimat Glomerular Filtration Rate 50, BUN/Creatinine Ratio 17, Glucose Level 100, Calcium Level 8.9, Corrected Calcium 9.5, Total Bilirubin 0.6, Aspartate Amino Transf (AST/SGOT) 89, Alanine Aminotransferase (ALT/SGPT) 136, Alkaline Phosphatase 159, Total Protein 6.4, Albumin 3.2, White Blood Count 8.4, Red Blood Count 4.04, Hemoglobin 11.9, Hematocrit 37, Mean Corpuscular Volume 92, Mean Corpuscular Hemoglobin 29, Mean Corpuscular Hemoglobin Concent 32, Red Cell Distribution Width 13.8, Platelet Count 340, Mean Platelet Volume 9.4, Magnesium Level 2.2 07/09/19 06:45: Sodium Level 136, Potassium Level 4.5, Chloride Level 101, Carbon Dioxide Level 25, Anion Gap 10, Blood Urea Nitrogen 26, Creatinine 1.11, Estimat Glomerular Filtration Rate 46, BUN/Creatinine Ratio 23, Glucose Level 107, Calcium Level 9.5, Corrected Calcium 9.7, Total Bilirubin 0.5, Aspartate Amino Transf (AST/SGOT) 48, Alanine Aminotransferase (ALT/SGPT) 89, Alkaline Phosphatase 135, Total Protein 7.5, Albumin 3.7, White Blood Count 9.1, Red Blood Count 4.45, Hemoglobin 13.1, Hematocrit 41, Mean Corpuscular Volume 92, Mean Corpuscular Hemoglobin 29, Mean Corpuscular Hemoglobin Concent 32, Red Cell Distribution Width 13.6, Platelet Count 368, Mean Platelet Volume 10.0 Discharge Home Medications: Active Scripts Active Timolol Maleate 0.5% (Timolol Maleate) 5 Ml Drops 0 Ml OU BID Furosemide 40 Mg Tablet 40 Mg PO DAILY Klor-Con 10 (Potassium Chloride) 10 Meq Tablet.er 10 Meq PO DAILY@0700 Montelukast Sodium 10 Mg Tablet 10 Mg PO HS Advair Hfa 115-21 Mcg Inhaler (Fluticasone/Salmeterol) 12 Gm Hfa.aer.ad 2 Puff IH BID@08,20 Iprat-Albut 0.5-3(2.5) mg/3 ml (Ipratropium/Albuterol Sulfate) 3 Ml Ampul.neb 3 Ml INH RTQ6HR Reported Estradiol Tablet (Estradiol) 0.5 Mg Tablet 0.5 Mg PO MON,FRI TAKES 1 TAB TWICE WEEKLY (MON AND FRI) Oxybutynin Chloride ER (Oxybutynin Chloride) 10 Mg Tab.er.24 10 Mg PO DAILY Thera-M Tablet (Multivits,Ca,Minerals/Iron/FA) 1 Each Tablet 1 Each PO DAILY Losartan Potassium 100 Mg Tablet 100 Mg PO DAILY Latanoprost 2.5 Ml Drops 1 Drop OU HS Calcium 600 + Vit D Caplet (Calcium Carbonate/Vitamin D3) 1 Each Tablet 2 Each PO DAILY Low Dose Aspirin EC (Aspirin) 81 Mg Tablet.dr 81 Mg PO DAILY Instructions to patient/family Please see electronic discharge instructions given to patient. Diagnosis/Problems Diagnosis/Problems (1) Debility (2) COPD (chronic obstructive pulmonary disease) Qualifiers: Qualified Codes: J44.9 - Chronic obstructive pulmonary disease, unspecified (3) Oxygen dependent (4) Hypoxemia (5) Edema (6) Hypertension (7) H/O mycoplasma pneumonia (8) Hx: UTI (urinary tract infection) (9) Foot drop, right (10) Glaucoma (11) Overactive bladder Clinical Quality Measures DVT/VTE Risk/Contraindication: Risk Factor Score Per Nursin RFS Level Per Nursing on Admit: 4+=Very High RIKA BERUMEN DO Jul 11, 2019 09:38
[2019-07-11] MEDS: RT-ADVAIR HFA 115/21 MCG PER PUFF IH SCH (09:41)
--- NOTE | 2019-07-11 09:49 | Cardiology Progress Note ---
Subjective Date Seen by Provider: Jul 11, 2019 Time Seen by Provider: 08:00 Subjective/Events-last exam Patient sitting up in chair, no new complaints. Denies any chest pain or dyspnea Objective-Cardiology Exam Last Set of Vital Signs Vital Signs 07/11/19 07/11/19 05:33 09:38 Temp 36.4 Pulse 71 Resp 20 B/P (MAP) 133/67 (89) Pulse Ox 98 O2 Delivery Nasal Cannula O2 Flow Rate 2.00 Capillary Refill : Less Than 3 Seconds I&O Intake and Output 07/11/19 00:00 Intake Total 1650 ml Balance 1650 ml Intake Oral 1650 ml # Voids 6 # Bowel Movements 2 General: Alert, Oriented X3, Cooperative HEENT: Atraumatic, PERRLA Neck: Supple, No JVD, No Thyromegaly Lungs: Clear to Auscultation, Normal Air Movement Heart: Regular Rate, Normal S1, Normal S2, No Murmurs Abdomen: Normal Bowel Sounds, Soft, No Tenderness, No Hepatosplenomegaly, No Masses Extremities: No Clubbing, No Cyanosis, No Edema, Normal Pulses, No Tenderness/Swelling Skin: No Rashes, No Breakdown, No Significant Lesion Neuro: Normal Gait, Normal Speech, Strength at 5/5 X4 Ext, Normal Tone, Sensation Intact Psych/Mental Status: Mental Status NL, Mood NL A/P-Cardiology Admission Diagnosis Shortness of breath Pulmonary hypertension Hypertension Sinus bradycardia Assessment/Plan Shortness of breath, reporting improvement. Continue to monitor Elevated liver enzymes, unknown etiology, improving slowly, continue to monitor, managed by primary care physician Pulmonary hypertension, severe, probably due to COPD, venous doppler negative for DVT. Bradycardia, history of sinus bradycardia in the past, currently asymptomatic. Continue to monitor heart rate and blood pressure Hypertension, controlled. ,continue to monitor. Recent pneumonia, resolved, managed by primary care physician Peripheral edema- discussed limiting salt in her diet. Debility and shortness of breath, improving, continue with physical therapy Patient was seen and evaluated with Jillian, examination performed, management plan was discussed, agree with the current scribed note, I made few changes to the note using Italic font Patient is scheduled for follow-up with my office Continue to monitor as an outpatient Clinical Quality Measures DVT/VTE Risk/Contraindication: Risk Factor Score Per Nursin RFS Level Per Nursing on Admit: 4+=Very High JILLIAN BEST Jul 11, 2019 09:49 CRUZ DANIELS MD Jul 11, 2019 15:51
--- NOTE | 2019-07-11 13:45 | Therapy Team Discharge Summary ---
Therapy Discharge Summary Discharge Recommendations Date of Discharge 07/11/2019 Therapy D/C Recommendations: Physical Therapy Home Care Physical Therapy This patient admitted to ARU post acute hospital stay due to sepsis. Upon admission, she was max assist with bed mobiltiy and mod assist with transfers. She was only able to walk short distances with min-CGA using a FWW with with difficulty. Prior to her hospital stay, she had been mod indep with all mobility and able to live alone and care for herself. Treatment focused on functional strength, activity tolerance, transfers, gait and mobility. She has made excellent progess and achieved all goals to a satisfactory level. She is mod indep with transfers and gait. Bed mobility not reassessed as pt does not sleep in her bed at home. Pt would benefit from home PT to address functional strength to continue to enhance mobility and safety. Will DC from ARU at this time. Occupational Therapy Decreased Activ Tolerance, Edema, Impaired I ADL's PT Skilled Nursing Goals Change Attendant Goals PT Change Attendant Goals Time Frame: Jul 17, 2019 Roll Left to Right (QC): 6 (na) Sit to Lying (QC): 6 (na) Lying-Sitting on Side/Bed(QC): 6 (na) Sit to Stand (QC): 6 (met) Chair/[id number] Xfer(QC): 6 (met) Car Transfer (QC): 5 (met) Does the Patient Walk: Yes Walk 10 feet (QC): 6 (met) Walk 10ft-Uneven Surface(QC): 5 (met) Walk 50ft with 2 Turns (QC): 6 (met) Walk 150 ft (QC): 6 (met) Does the Pt use WC or Scooter?: No 1 Step (curb) (QC): 5 (met) 4 Steps (QC): 4 12 Steps (QC): 9 Picking up an Object (QC): 4 all goals met to a satisfactory level OT Change Attendant Goals Skilled Nursing Goals Time Frame: Jul 16, 2019 Eating (QC): 6 (met) Oral Hygiene (QC): 6 (met) Shower/Bathe Self (QC): 6 Upper Body Dressing (QC): 6 (met) Lower Body Dressing (QC): 6 On/Off Footwear (QC): 6 (met) Toileting Hygiene (QC): 6 Toilet/Commode Transfer (QC): 6 Additional Goals: 1-Demonstrate ADL Tasks, 2-Verbalize Understanding, 3- ImproveStrength/Chrissy 1=Demonstrate adherence to instructed precautions during ADL tasks. 2=Patient will verbalize/demonstrate understanding of assistive devices/modifications for ADL. 3=Patient will improve strength/tolerance for activity to enable patient to perform ADL's. FLORENCIO HAMM PT Jul 11, 2019 13:45
--- NOTE | 2019-07-11 16:07 | NUR ---
CM/SS DISCHARGE Patient discharged home as planned this p.m. HHC: Finalized with [facility] for RN/PT/OT. DME: [employer] delivered portable O2 and will meet family at home for set up and education, including concentrator, nebulizer, and tub bath bench. Son Juventino and his Carlene here, the plan had been for her to stay 1-2 days with patient; however, Carlene's father is gravely ill in another state and she will be leaving with her sister Tuesday to go to his side. Carlene asked if ARU staff thought patient could stay alone. Certified Professional Coder advised them that it was a family decision regarding next steps. It had been a part of her post hospital plan to have someone with her for at least a short time to monitor/assist at home, especially during the learning phase of managing new continuous O2 and the tubing during ambulation. Options were explored. Patient is alert and oriented and participated in the discussion. Patient, Juventino and Carlene chose for her to discharge home, patient's sister was going to be called to come stay with her. They understand they could contact a community SNF if they wanted a respite while Juventino and Carlene are gone, and that patient could be assessed at home for a direct admit. They indicated they would not purse assisted living because of the out of pocket cost. Certified Professional Coder offered post discharge assist with resources if needed.
== END 2019-07-11 14:30 | disposition home health service (06) | DRG 948 ==
PROVIDERS: ADMIT Internal Medicine; ATTEND Internal Medicine
DX: R53.81 Other malaise (principal); I27.23 Pulmonary hypertension due to lung diseases and hypoxia; J44.9 Chronic obstructive pulmonary disease, unspecified; Z99.81 Dependence on supplemental oxygen; I10 Essential (primary) hypertension; I08.3 Combined rheumatic disorders of mitral, aortic and tricuspid valves; R00.1 Bradycardia, unspecified; E78.00 Pure hypercholesterolemia, unspecified; Z66 Do not resuscitate; G62.9 Polyneuropathy, unspecified; M21.371 Foot drop, right foot; M19.91 Primary osteoarthritis, unspecified site; H40.9 Unspecified glaucoma; H54.3 Unqualified visual loss, both eyes; N32.81 Overactive bladder; R60.0 Localized edema; R09.89 Other specified symptoms and signs involving the circulatory and respiratory systems; R74.8 Abnormal levels of other serum enzymes
CPT/HCPCS: 36415; 71045; 80053; 83735; 85025; 85027; 93970; 94640; 94664; 94760; 94761

== ENCOUNTER → 2019-08-03 | Outpatient (CLI) | payer MEDICARE ==
[~2019-08-03] MED LIST: ASPI81TA16 PO; CALC-694 PO; ESTR0.5T PO; FLUT12AE4 IH; FURO-124 PO; FURO40TA4 PO; IPRA3AMP31 INH; LATA2.5D5 OU; LOSA100T57 PO; MONT10TA26 PO; MULT1TAB63 PO; NEBI5TAB8 PO; OXYB-52 PO; OXYB10TA29 PO; POTA10TA PO; POTA10TA6 PO; RT-ALBUTEROL SULF 2.5 MG/3 ML PRE-MIX VIAL INH ONE; RT-ALBUTEROL SULF 2.5 MG/3 ML PRE-MIX VIAL ONE; TIMO5DRO31 OU; TIMO5DRO5 OU
--- NOTE | 2019-08-03 11:57 | Diagnostic Imaging Report ---
INDICATION: Cough and shortness of breath. TIME OF EXAM: 11:43 a.m. COMPARISON: Correlation is made with prior chest from 07/03/2019. FINDINGS: Heart size is stable. There is some ectasia and tortuosity of the descending thoracic aorta. There appears to be some improved aeration to the right base when compared with prior exam. Area of density may represent some eventration of the diaphragm posteriorly, best seen on the lateral view. Pulmonary vascularity is normal. There is no significant effusion. No pneumothorax is seen. IMPRESSION: Improved aeration to the right base when compared with examination from 07/03/2019. Dictated by: Dictated on workstation # [id number]
== END ==
LOC: RT 10:15
PROVIDERS: ATTEND Nurse Practitioner Family
DX: J98.4 Other disorders of lung (principal); R09.02 Hypoxemia
CPT/HCPCS: 71046; 94060; 94726; 94729

== ENCOUNTER → 2019-08-06 | Outpatient (CLI) | payer MEDICARE ==
[~2019-08-06] MED LIST changes: -RT-ALBUTEROL SULF 2.5 MG/3 ML PRE-MIX VIAL INH ONE; -RT-ALBUTEROL SULF 2.5 MG/3 ML PRE-MIX VIAL ONE
== END ==
LOC: SLEEP 19:57
PROVIDERS: ATTEND Nurse Practitioner Family
DX: G47.10 Hypersomnia, unspecified (principal)
CPT/HCPCS: 95811

== ENCOUNTER 2019-11-21 07:50 | Day surgery (SDC) | payer MEDICARE ==
[~2019-11-21] VITALS: Ht 152 cm; Wt 91.0 kg
--- OUTSIDE RECORDS SUMMARY | 2019-11-21 07:55 | XMS REPORT | Continuity of Care Document ---
Author Organization Unknown Address Unknown Phone Unavailable Allergies Active Description Code Type Severity Reaction Onset Reported/Identified Relationship to Patient Clinical Status Yes SULFA (SULFONAMIDE ANTIBIOTICS) MODERATE DERMATOLOGICAL - HIV Yes SULFA (SULFONAMIDE ANTIBIOTICS) MODERATE MODERATE Yes TYLENOL MODERATE MODERATE Yes acetaminophen [id number] Leonardo g Allergy Moderate Rash 07/02/2019 Yes Sulfa (Sulfonamide Antibiotics) [id number] Drug Allergy Moderate Rash 2019 Yes No Allergy Information Available [id number] Drug Allergy Unknown N/A 020 Medications Medication [...] 07/05/2019 Daily&0900 MultiVits (Thera M Plus) (mu [id number]) oral tablet TAB 06/29/2019 07/28/2019 Daily&0900 CALCIUM [...] Attending Type Code Diagnosis Diagnosed By 10/15/2016 Rika Head M51.37 OTHER INTERVERTEBRAL DISC DEGENERATION, LUMBOSACRAL REGION 10/15/2016 Rika Head M54.5 LOW BACK PAIN 10/15/2016 Baldo Ferreira M51.37 OTHER INTERVERTEBRAL DISC DEGENERATION, LUMBOSACRAL REGION 10/15/2016 Baldo Ferreira M54.5 LOW BACK PAIN 10/15/2016 Baldo Ferreira 722.52 DEGENERATION OF LUMBAR [...] Ferreira W 401.9 UNSPECIFIED ESSENTIAL HYPERTENSION 04/03/2018 PaBaldo moss W I10 ESSENTIAL (PRIMARY) HYPERTENSION 04/03/2018 Baldo Ferreira W 401.9 UNSPECIFIED ESSENTIAL HYPERTENSION 04/03/2018 Baldo Ferreira W I10 ESSENTIAL (PRIMARY) HYPERTENSION 07/27/2018 W 729.81 SWE LLING OF LIMB 07/27/2018 W M79.89 OTH ER SPECIFIED SOFT TISSUE DISORDERS 08/01/2018 NOLBERTO THRASHER MD Ot I70.242 [place] ARTERIES OF LEFT LEG W [facility] 08/01/2018 NOLBERTO THRASHER MD Ot I70.243 [place] ARTERIES OF LEFT LEG W [facility] 08/01/2018 NOLBERTO THRASHER MD Ot 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 08/01/2018 NOLBERTO THRASHER MD Ot I89 .0 LYMPHEDEMA, NOT ELSEWHERE CLASSIFIED 08/01/2018 NOLBERTO THRASHER MD Ot L97.222 NON-PRESSURE CHRONIC ULCER OF LEFT CALF 08/01/2018 NOLBERTO THRASHER MD Ot 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 08/01/2018 NOLBERTO THRASHER MD Ot I70.242 [place] ARTERIES OF LEFT LEG W [facility] 08/01/2018 NOLBERTO THRASHER MD Ot L97.222 NON-PRESSURE CHRONIC ULCER OF LEFT CALF 08/03/2018 NOLBERTO THRASHER MD Ot I70.242 [place] ARTERIES OF LEFT LEG W [facility] 08/03/2018 NOLBERTO THRASHER MD Ot I70.243 [place] ARTERIES OF LEFT LEG W [facility] 08/03/2018 NOLBERTO THRASHER MD Ot I87.321 CHRONIC [...] 08/07/2018 NOLBERTO THRASHER MD Ot I70.242 [place] ARTERIES OF LEFT LEG W [facility] 08/07/2018 NOLBERTO THRASHER MD Ot I70.243 [place] ARTERIES OF LEFT LEG W C 08/07/2018 NOLBERTO THRASHER MD Ot 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 08/07/2018 NOLBERTO THRASHER MD, Ot 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 08/07/2018 NOLBERTO THRASHER MD, Ot I89 .0 LYMPHEDEMA, NOT ELSEWHERE CLASSIFIED 08/07/2018 NOLBERTO THRASHER MD, Ot L97.222 NON-PRESSURE CHRONIC ULCER OF LEFT CALF 08/07/2018 NOLBERTO THRASHER MD, Ot 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 08/17/2018 NOLBERTO THRASHER MD Ot I70.242 [place] ARTERIES OF LEFT LEG W [facility] 08/17/2018 NOLBERTO THRASHER MD Ot 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 08/17/2018 NOLBERTO THRASHER MD Ot 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 08/17/2018 NOLBERTO THRASHER MD Ot I89 .0 LYMPHEDEMA, NOT ELSEWHERE CLASSIFIED 08/17/2018 NOLBERTO THRASHER MD Ot L97.222 NON-PRESSURE CHRONIC ULCER OF LEFT CALF 08/17/2018 NOLBERTO THRASHER MD Ot I70.242 [place] ARTERIES OF LEFT LEG W C 08/17/2018 NOLBERTO THRASHER MD Ot I70.243 [place] ARTERIES OF LEFT LEG W [facility] 08/17/2018 NOLBERTO THRASHER MD Ot 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 08/17/2018 NOLBERTO THRASHER MD Ot I89 .0 LYMPHEDEMA, NOT ELSEWHERE CLASSIFIED 08/17/2018 NOLBERTO THRASHER MD Ot L97.222 NON-PRESSURE CHRONIC ULCER OF LEFT CALF 08/17/2018 NOLBERTO THRASHER MD Ot 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 08/21/2018 NOLBERTO THRASHER MD Ot I70.242 [place] ARTERIES OF LEFT LEG W C 08/21/2018 NOLBERTO THRASHER MD Ot 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 08/21/2018 NOLBERTO THRASHER MD Ot 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 08/21/2018 NOLBERTO THRASHER MD Ot I89 .0 LYMPHEDEMA, NOT ELSEWHERE CLASSIFIED 08/21/2018 NOLBERTO THRASHER MD Ot L97.222 NON-PRESSURE CHRONIC ULCER OF LEFT CALF 08/22/2018 NOLBERTO THRASHER MD Ot I70.242 [place] ARTERIES OF LEFT LEG W [facility] 08/22/2018 NOLBERTO THRASHER MD Ot I70.243 [place] ARTERIES OF LEFT LEG W [facility] 08/22/2018 NOLBERTO THRASHER MD Ot 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 08/22/2018 NOLBERTO THRASHER MD Ot 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 08/22/2018 NOLBERTO THRASHER MD Ot I89 .0 LYMPHEDEMA, NOT ELSEWHERE CLASSIFIED 08/22/2018 NOLBERTO THRASHER MD Ot L97.222 NON-PRESSURE CHRONIC ULCER OF LEFT CALF 08/22/2018 NOLBERTO THRASHER MD Ot 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 08/23/2018 NOLBERTO THRASHER MD Ot I70.242 [place] ARTERIES OF LEFT LEG W [facility] 08/23/2018 NOLBERTO THRASHER MD Ot L97.222 NON-PRESSURE CHRONIC ULCER OF LEFT CALF 08/30/2018 NOLBERTO THRASHER MD Ot I70.242 [place] ARTERIES OF LEFT LEG W [facility] 08/30/2018 NOLBERTO THRASHER MD Ot 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 08/30/2018 NOLBERTO THRASHER MD Ot 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 08/30/2018 NOLBERTO THRASHER MD Ot I89 .0 LYMPHEDEMA, NOT ELSEWHERE CLASSIFIED 08/30/2018 NOLBERTO THRASHER MD Ot L97.222 NON-PRESSURE CHRONIC ULCER OF LEFT CALF 08/31/2018 PRICE MD, NOLBERTO G Ot I70.242 [place] ARTERIES OF LEFT LEG W C 08/31/2018 NOLBERTO THRASHER MD Ot 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 08/31/2018 NOLBERTO THRASHER MD Ot 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 08/31/2018 NOLBERTO THRASHER MD Ot I89 .0 LYMPHEDEMA, NOT ELSEWHERE CLASSIFIED 08/31/2018 NOLBERTO THRASHER MD, Ot L97.222 NON-PRESSURE CHRONIC ULCER OF LEFT CALF 09/01/2018 NOLBERTO THRASHER MD Ot I70.242 [place] ARTERIES OF LEFT LEG W C 09/01/2018 NOLBERTO THRASHER MD Ot I70.243 [place] ARTERIES OF LEFT LEG W [facility] 09/01/2018 NOLBERTO THRASHER MD, Ot 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 09/01/2018 NOLBERTO THRASHER MD, Ot I89 .0 LYMPHEDEMA, NOT ELSEWHERE CLASSIFIED 09/01/2018 NOLBERTO THRASHER MD, Ot L97.222 NON-PRESSURE CHRONIC ULCER OF LEFT CALF 09/01/2018 NOLBERTO THRASHER MD Ot 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 09/01/2018 NOLBERTO THRASHER MD Ot I70.242 [place] ARTERIES OF LEFT LEG W [facility] 09/01/2018 NOLBERTO THRASHER MD Ot L97.222 NON-PRESSURE CHRONIC ULCER OF LEFT CALF 09/01/2018 NOLBERTO THRASHER MD Ot I70.242 [place] ARTERIES OF LEFT LEG W [facility] 09/01/2018 NOLBERTO THRASHER MD Ot I70.243 [place] ARTERIES OF LEFT LEG W [facility] 09/01/2018 NOLBERTO THRASHER MD Ot 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 09/01/2018 NOLBERTO THRASHER MD Ot 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 09/01/2018 NLOBERTO THRASHER MD, Ot I89 .0 LYMPHEDEMA, NOT [...] 09/04/2018 NOLBERTO THRASHER MD Ot I70.242 [place]CL [place] ARTERIES OF LEFT LEG W [facility] 09/04/2018 NOLBERTO THRASHER MD Ot 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 09/04/2018 NOLBERTO THRASHER MD Ot 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 09/04/2018 NOLBERTO THRASHER MD Ot I89 .0 LYMPHEDEMA, NOT ELSEWHERE CLASSIFIED 09/04/2018 NOLBERTO THRASHER MD, Ot L97.222 NON-PRESSURE CHRONIC ULCER OF LEFT CALF 09/06/2018 NOLBERTO THRASHER MD, Ot I70.242 [place] ARTERIES OF LEFT LEG W [facility] 09/06/2018 NOLBERTO THRASHER MD, Ot 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 09/06/2018 NOLBERTO THRASHER MD Ot 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 09/06/2018 NOLBERTO THRASHER MD Ot I89 .0 LYMPHEDEMA, NOT ELSEWHERE CLASSIFIED 09/06/2018 NOLBERTO THRASHER MD Ot L97.222 NON-PRESSURE CHRONIC ULCER OF LEFT CALF 09/11/2018 NOLBERTO THRASHER MD Ot I70.242 [place] ARTERIES OF LEFT LEG W [facility] 09/11/2018 NOLBERTO THRASHER MD Ot 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 09/11/2018 NOLBERTO THRASHER MD Ot 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 09/11/2018 NOLBERTO THRASHER MD Ot I89 .0 LYMPHEDEMA, NOT ELSEWHERE CLASSIFIED 09/11/2018 NOLBERTO THRASHER MD, Ot L97.222 NON-PRESSURE CHRONIC ULCER OF LEFT CALF 09/13/2018 NOLBERTO THRASHER MD Ot I70.242 [place] ARTERIES OF LEFT LEG W [facility] 09/13/2018 NOLBERTO THRASHER MD Ot 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 09/13/2018 NOLBERTO THRASHER MD Ot 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 09/13/2018 NOLBERTO THRASHER MD Ot I89 .0 LYMPHEDEMA, NOT ELSEWHERE CLASSIFIED 09/13/2018 NOLBERTO THRASHER MD, Ot L97.222 NON-PRESSURE CHRONIC ULCER OF LEFT CALF 09/15/2018 NOLBERTO THRASHER MD, Ot I70.242 [place]CL [place] ARTERIES OF LEFT LEG W [facility] 09/15/2018 NOLBERTO THRASHER MD, Ot 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 09/15/2018 NOLBERTO THRASHER MD Ot 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 09/15/2018 NOLBERTO THRASHER MD Ot I89 .0 LYMPHEDEMA, NOT ELSEWHERE CLASSIFIED 09/15/2018 NOLBERTO THRASHER MD, Ot L97.222 NON-PRESSURE CHRONIC ULCER OF LEFT CALF 09/21/2018 NOLBERTO THRASHER MD, Ot I70.242 [place]CL [place] ARTERIES OF LEFT LEG W [facility] 09/21/2018 NOLBERTO THRASHER MD, Ot 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 09/21/2018 NOLBERTO THRASHER MD, Ot 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 09/21/2018 NOLBERTO THRASHER MD, Ot I89 .0 LYMPHEDEMA, NOT ELSEWHERE CLASSIFIED 09/21/2018 NOLBERTO THRASHER MD, Ot L97.222 NON-PRESSURE CHRONIC ULCER OF LEFT CALF 09/21/2018 NOLBERTO THRASHER MD, Ot I70.242 [place]CL [place] ARTERIES OF LEFT LEG W [facility] 09/21/2018 NOLBERTO THRASHER MD, Ot 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 09/21/2018 NOLBERTO THRASHER MD, Ot 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 09/21/2018 NOLBERTO THRASHER MD, Ot I89 .0 LYMPHEDEMA, NOT ELSEWHERE CLASSIFIED 09/21/2018 NOLBERTO THRASHER MD, Ot L97.222 NON-PRESSURE CHRONIC ULCER OF LEFT CALF 09/27/2018 NOLBERTO THRASHER MD, Ot I70.242 [place]CL [place] ARTERIES OF LEFT LEG W [facility] 09/27/2018 NOLBERTO THRASHER MD, Ot 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 09/27/2018 NOLBERTO THRASHER MD, Ot 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 09/27/2018 NOLBERTO THRASHER MD, Ot I89 .0 LYMPHEDEMA, NOT ELSEWHERE CLASSIFIED 09/27/2018 NOLBERTO THRASHER MD, Ot L97.222 NON-PRESSURE CHRONIC ULCER OF LEFT CALF 10/26/2018 LEISURE, JOHNJOY W 041.81 MYCOPLASMA INFECTION IN CONDITIONS CLASSIFIED ELSEWHERE AND OF UNSPECIFIED SITE 10/26/2018 IVETH ORTIZ A49.3 MYCOPLASMA INFECTION, UNSPECIFIED SITE 10/26/2018 LEISURE JOHNJOY Larose B96.0 MYCOPLASMA PNEUMONIAE THE CAUSE OF DISEASES CLASSD ELSWHR 06/28/2019 Sonido Rika W 599.0 URINARY TRACT INFECTION, SITE NOT SPECIFIED 06/28/2019 Sonido Rika W N39.0 URINARY TRACT INFECTION, SITE NOT SPECIFIED 06/29/2019 Head, Rika W 599.0 URINARY TRACT INFECTION, SITE NOT SPECIFIED 06/29/2019 Head, Rika W N39.0 URINARY TRACT INFECTION, SITE NOT SPECIFIED 07/02/2019 Sonido Rika W 041.49 OTHER AND UNSPECIFIED ESCHERICHIA COLI [E. COLI] INFECTION IN CONDITIONS CLASSIFIED ELSEWHERE AND 07/02/2019 Sonido Rika 041.81 MYCOPLASM 07/02/2019 Sonido Rika W 401.0 MALIGNANT ESSENTIAL HYPERTENSION 07/02/2019 Sonido Rika W 428.9 HEART FAILURE, UNSPECIFIED 07/02/2019 Sonido, Rika W 596.51 HYPERTONICITY OF BLADDER 07/02/2019 Sonido, Rika W 599.0 URINARY TRACT INFECTION, SITE NOT SPECIFIED 07/02/2019 Sonido Rika W A41.9 SEPSIS, UNSPECIFIED ORGANISM 07/02/2019 Sonido Rika W B96.0 MYCOPLASMA PNEUMONIAE THE CAUSE OF DISEASES CLASSD ELSWHR 07/02/2019 Sonido Rika W B96.20 UNSP ESCHERICHIA COLI THE CAUSE OF DISEASES CLASSD ELSWHR 07/02/2019 Sonido Rika W E78.5 HYPERLIPIDEMIA, UNSPECIFIED 07/02/2019 Sonido Rika W I10 ESSENTIAL (PRIMARY) HYPERTENSION 07/02/2019 Sonido Rika W I50.9 HEART FAILURE, UNSPECIFIED 07/02/2019 Sonido Rika W J15.7 PNEUMONIA DUE TO MYCOPLASMA PNEUMONIAE 07/02/2019 Sonido Rika W M54.5 LOW BACK PAIN 07/02/2019 Sonido Rika W M79.89 OTHER SPECIFIED SOFT TISSUE DISORDERS 07/02/2019 Sonido Rika W N32.81 OVERACTIVE BLADDER 07/02/2019 Emilee Headi W N39.0 URINARY TRACT INFECTION, SITE NOT SPECIFIED 07/02/2019 Emilee Headi W S01.112A LACERATION W/O FB OF LEFT EYELID AND PERIOCULAR AREA, INIT 07/02/2019 Emilee Headi W Z48.02 ENCOUNTER FOR REMOVAL OF SUTURES 07/11/2019 HEAD DO, RIKA Ot E78.00 PURE HYPERCHOLESTEROLEMIA, UNSPECIFIED 07/11/2019 HEAD DO, RIKA Ot G62.9 POLYNEUROPATHY, UNSPECIFIED 07/11/2019 HEAD DO, RIKA Ot H40.9 UNSPECIFIED GLAUCOMA 07/11/2019 HEAD DO, RIKA Ot 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, BOTH EYES 07/11/2019 HEAD DO, RIKA Ot I08.3 COMB RHEUMATIC DISORD OF MITRAL, AORTIC 07/11/2019 HEAD DO, RIKA Ot I10 ESSENTIAL (PRIMARY) HYPERTENSION 07/11/2019 HEAD DO, RIKA Ot 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 07/11/2019 HEAD DO, RIKA Ot J44.9 CHRONIC OBSTRUCTIVE PULMONARY DISEASE, U 07/11/2019 HEAD DO, RIKA Ot M19.91 PRIMARY OSTEOARTHRITIS, UNSPECIFIED SITE 07/11/2019 HEAD DO, RIKA Ot M21.37 1 FOOT DROP, RIGHT FOOT 07/11/2019 HEAD DO, RIKA Ot N32.81 OVERACTIVE BLADDER 07/11/2019 HEAD DO, RIKA Ot R00.1 BRADYCARDIA, UNSPECIFIED 07/11/2019 HEAD DO, RIKA Ot R09.89 OTH SYMPTOMS AND SIGNS INVOLVING THE CIR 07/11/2019 HEAD DO, RIKA Ot R53.81 OTHER MALAISE 07/11/2019 HEAD DO, RIKA Ot R60.0 LOCALIZED EDEMA 07/11/2019 HEAD DO, RIKA Ot R74.8 ABNORMAL LEVELS OF OTHER SERUM ENZYMES 07/11/2019 HEAD DO, RIKA Ot Z66 DO NOT RESUSCITATE 07/11/2019 HEAD DO, RIKA Ot Z99.81 DEPENDENCE ON SUPPLEMENTAL OXYGEN 08/01/2019 PRICE HOGAN, NOLBERTO Be Ot I70.242 [place]CL [place] ARTERIES OF LEFT LEG W [facility] 08/01/2019 PRICE HOGAN, NOLBERTO Be Ot I70.243 A[place]CL [place] ARTERIES OF LEFT LEG W [facility] 08/01/2019 NOLBERTO THRASHER MD Ot 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 08/01/2019 NOLBERTO THRASHER MD Ot I89 .0 LYMPHEDEMA, NOT ELSEWHERE CLASSIFIED 08/01/2019 NOLBERTO THRASHER MD Ot L97.222 NON-PRESSURE CHRONIC ULCER OF LEFT CALF 08/01/2019 NOLBERTO THRASHER MD Ot 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 08/01/2019 NOLBERTO THRASHER MD Ot I70.242 [place]CL [place] ARTERIES OF LEFT LEG W C 08/01/2019 NOLBERTO THRASHER MD Ot L97.222 NON-PRESSURE CHRONIC ULCER OF LEFT CALF 08/01/2019 NOLBERTO THRASHER MD Ot I70.242 A[place]SCL [place] ARTERIES OF LEFT LEG W [facility] 08/01/2019 NOLBERTO THRASHER MD Ot I70.243 A[place]SCL [place] ARTERIES OF LEFT LEG W [facility] 08/01/2019 NOLBERTO THRASHER MD Ot 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 08/01/2019 NOLBERTO THRASHER MD Ot 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 08/01/2019 NOLBERTO THRASHER MD Ot I89 .0 LYMPHEDEMA, NOT ELSEWHERE CLASSIFIED 08/01/2019 NOLBERTO THRASHER MD Ot L97.222 NON-PRESSURE CHRONIC ULCER OF LEFT CALF 08/01/2019 NOLBERTO THRASHER MD Ot 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 08/01/2019 NOLBERTO THRASHER MD Ot I70.242 A[place]SCL [place] ARTERIES OF LEFT LEG W [facility] 08/01/2019 NOLBERTO THRASHER MD Ot 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 08/01/2019 NOLBERTO THRASHER MD Ot 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 08/01/2019 NOLBERTO THRASHER MD Ot I89 .0 LYMPHEDEMA, NOT ELSEWHERE CLASSIFIED 08/01/2019 NOLBERTO THRASHER MD Ot L97.222 NON-PRESSURE CHRONIC ULCER OF LEFT CALF 08/01/2019 NOLBERTO THRASHER MD Ot I70.242 A[place]SCL [place] ARTERIES OF LEFT LEG W [facility] 08/01/2019 NOLBERTO THRASHER MD Ot 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 08/01/2019 NOLBERTO THRASHER MD Ot 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 08/01/2019 NOLBERTO THRASHER MD Ot I89 .0 LYMPHEDEMA, NOT ELSEWHERE CLASSIFIED 08/01/2019 NOLBERTO THRASHER MD, Ot L97.222 NON-PRESSURE CHRONIC ULCER OF LEFT CALF 08/01/2019 NOLBERTO THRASHER MD Ot I70.242 A[place]SCL [place] ARTERIES OF LEFT LEG W ULC 08/01/2019 NOLBERTO THRASHER MD Ot 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 08/01/2019 NOLBERTO THRASHER MD Ot 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 08/01/2019 NOLBERTO THRASHER MD, Ot I89 .0 LYMPHEDEMA, NOT ELSEWHERE CLASSIFIED 08/01/2019 NOLBERTO THRASHER MD, Ot L97.222 NON-PRESSURE CHRONIC ULCER OF LEFT CALF 08/01/2019 NOLBERTO THRASHER MD, Ot I70.242 ATHSCL [place] ARTERIES OF LEFT LEG W ULC 08/01/2019 NOLBERTO THRASHER MD, Ot 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 08/01/2019 NOLBERTO THRASHER MD Ot 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 08/01/2019 NOLBERTO THRASHER MD, Ot I89 .0 LYMPHEDEMA, NOT ELSEWHERE CLASSIFIED 08/01/2019 NOLBERTO THRASHER MD, Ot L97.222 NON-PRESSURE CHRONIC ULCER OF LEFT CALF 08/01/2019 GWENDOLYN GONCALVES TIMEKEEPING SUPERVISOR Ot G47.9 SLEEP DISORDER, UNSPECIFIED 08/02/2019 GWENDOLYN GONCALVES TIMEKEEPING SUPERVISOR Ot G47.9 SLEEP DISORDER, UNSPECIFIED 08/06/2019 GWENDOLYN GONCALVES TIMEKEEPING SUPERVISOR Ot G47.9 SLEEP DISORDER, UNSPECIFIED 08/09/2019 GWENDOLYN GONCALVES TIMEKEEPING SUPERVISOR Ot J98.4 OTHER DISORDERS OF LUNG 08/09/2019 GWENDOLYN GONCALVES TIMEKEEPING SUPERVISOR Ot R09.02 HYPOXEMIA 08/10/2019 Baldo Ferreira B96.0 MYCOPLASMA PNEUMONIAE THE CAUSE OF DISEASES CLASSD ELSWHR 08/10/2019 Baldo Ferreira E78.5 HYPERLIPIDEMIA, UNSPECIFIED 08/10/2019 Baldo Ferreira I10 ESSENTIAL (PRIMARY) HYPERTENSION 08/10/2019 Baldo Ferreira M54.5 LOW BACK PAIN 08/10/2019 Baldo Ferreira M79.89 OTHER SPECIFIED SOFT TISSUE DISORDERS 08/10/2019 Baldo Ferreira N39.0 URINARY TRACT INFECTION, SITE NOT SPECIFIED 08/10/2019 Baldo Ferreira S01.112A LACERATION W/O FB OF LEFT EYELID AND PERIOCULAR AREA, INIT 08/10/2019 Baldo Ferreira Z48.02 ENCOUNTER FOR REMOVAL OF SUTURES 08/24/2019 GWENDOLYN GONCALVES APRN Ot J98.4 OTHER DISORDERS OF LUNG 08/24/2019 GWENDOLYN GONCALVES APRN Ot R09.02 HYPOXEMIA 09/12/2019 GWENDOLYN GONCALVES APRN Ot G47.33 OBSTRUCTIVE SLEEP APNEA (ADULT) (PEDIATR 10/17/2019 GWENDOLYN GONCALVES APRN Ot G47.33 OBSTRUCTIVE SLEEP APNEA (ADULT) (PEDIATR Procedures There is no data. Results Test [...] 14:43 Bacteria identification in wound by culture [id number] NRG FREE TEXT EXTERNAL SUSCEPTIBILTIY REPORTED [id number] NRG QUANTITY OF GROWTH Moderate Growth NRG FREE TEXT ENTRY 2 ID REPORTED 08/02/18 08:05 NRG CALL POSITIVES (F1 HELP) METHICILLIN SENSITIVE NRG L Sensitivity Panel - 08/01/18 14:43 Oxacillin susceptibility [...] Negative Urine-Blood Negative Negative Urine-Color Yellow Colorless-Lt. Gem ow Urine-Epithelial Cells 0-5/HPF Urine-Glucose Negative Negative Urine-Ketones Negative Negative Urine-Leukocytes Negative Negative Urine-Nitrite Negative Negative Urine-Other Urine Saved if Culture Need ed (48hrs from time of collection) Urine-pH 7.5 5-8.5 Urine-Protein Negative Negative Urine-RBC Negative Urine-Specific [place] 1.015 1.000-1 .030 Urine-WBC Negative Urobilinogen 0.2 [...] CULTURE RESULTS >100,000 Gram Negativ e Lactose Dredge Worker YOSELIN / ID to Follow MEDIA PLATED [...] MEDIA PLATED Setup at 14:46 on 06/28/2019X0 [id number] Culture Media Position B25 CULTURE SOURCE left [...] MEDIA PLATED Setup at 14:45 on 06/28/2019X0 [id number] [employer] Position B27 CULTURE SOURCE right [...] g/dL 3.2-4.5 CALCIUM CORRECTED 9.7 mg/dL 8.5-10.1 Comprehensive Metabolic Panel - 08/06/19 10:03 Albumin 4.2 g/dL 3.6-5.1 ALP 93 U/L 35-130 ALT 17 U/L 6-45 Anion Gap 15 6-14 AST 26 U/L 2-40 BUN 12 mg/dL 5-25 Calcium 10.0 mg/dL 8.3-10.4 Chloride 96 mmol/L 95-114 CO2 30 mEq/L 22-33 Creat 0.90 mg/dL 0.50-1.50 eGFR 59 mL/min/1.73m2 >59 Globulin 3.4 g/dL 2.3-3.5 Glucose 101 mg/dL 70-110 Osmo 283 280-295 Potassium 4.1 mmol/L 3.5-5.3 Sodium 137 mmol/L 134-148 TBil 0.8 mg/dL 0.2-1.2 TP 7.6 g/dL 6.0-8.3 Encounters ACCT No. Visit Date/Time Discharge Status Pt. Type Provider Facility Loc./Unit Complaint [id number] 07/12/2019 10:48:00 08/10/2019 14:07 :00 DIS Outpatient Baldo Ferreira [id number] 08/06/2019 09:58:00 08/06/2019 23:59 :00 DIS Outpatient CRUZ DANIELS [id number] 07/18/2019 14:15:00 07/18/2019 23:59 :00 DIS Outpatient Baldo Ferreira [id number] 07/18/2019 12:29:00 07/18/2019 23:59 :00 DIS Outpatient PaisaBaldo [id number] 07/05/2019 00:00:00 07/05/2019 06:32 :00 DIS Outpatient BODWAYNE ERAZO [id number] 06/28/2019 13:55:00 07/02/2019 17:43 :00 DIS Inpatient iRka Head enter [facility] [id number] 06/28/2019 11:52:00 06/28/2019 23:59 :00 DIS Outpatient BODWAYNE [id number] 06/13/2019 10:46:00 06/13/2019 23:59 :00 DIS Outpatient BODWAYNE [id number] 05/30/2019 10:55:00 05/30/2019 23:59 :00 DIS Outpatient Paisa Baldo [id number] 04/05/2019 13:59:00 04/05/2019 23:59: 00 DIS Outpatient GISELLA BECK [id number] 02/22/2019 09:44:00 02/22/2019 23:59: 00 DIS Outpatient PaBaldo moss [id number] 10/26/2018 11:46:00 10/26/2018 14:40: 00 DIS Outpatient IVETH ORTIZ [facility] [id number] 09/01/2018 13:25:00 09/01/2018 23:59: 00 DIS Outpatient Shaina Ball [id number] 04/03/2018 08:40:00 04/03/2018 23:59: 00 DIS Outpatient Baldo Ferreira [id number] 06/02/2017 10:01:00 06/02/2017 10:17: 00 DIS Outpatient Scott Lima [id number] 05/28/2017 23:19:00 05/29/2017 00:43: 00 DIS Outpatient Berny Panda [id number] 02/28/2017 13:10:00 02/28/2017 23:59: 00 DIS Outpatient JN, KARENA [id number] 10/15/2016 12:45:00 11/17/2016 10:45: 00 DIS Outpatient Baldo Ferreira [id number] 10/11/2016 10:17:00 10/11/2016 23:59: 00 DIS Outpatient Baldo Ferreira [id number] 09/08/2016 09:52:00 09/08/2016 23:59: 00 DIS Outpatient Shawn De Los Santos [id number] 04/28/2016 10:24:00 04/28/2016 23:59: 00 DIS Outpatient Baldo Ferreira [id number] 09/01/2018 08:02:00 Document Registration [id number] 07/27/2018 10:22:00 Document Registration [id number] 03/29/2018 10:45:00 Document Registration [id number] 03/08/2018 09:50:40 Document Registration [id number] 06/16/2017 09:20:00 Document Registration [id number] 06/09/2017 10:35:00 Document Registration 105 05/29/2017 03:05:57 Document Registration [id number] 11/14/2019 09:45:00 23:59:59 CLS Preadmit CRUZ DANIELS MD [facility] CATH PALPITATIONS,TIA [id number] 08/06/2019 19:57:00 23:59:59 CLS Outpatient GWENDOLYN GONCALVES APRN [facility] SLEEP HYPERSOMNIA,INFORMATICS SCIENTIST DISORDER [id number] 08/03/2019 10:15:00 23:59:59 CLS Outpatient GWENDOLYN GONCALVES APRN [facility] RT DISORDERS OF LUNG,ABNORMALITIES OF BREATHING [id number] 07/02/2019 13:58:00 14:30:00 DIS Inpatient SONIDO FLEMINGRIKA [facility] IRF SEPSIS [id number] 09/01/2018 09:57:00 23:59:59 CLS Outpatient NOLBERTO THRASHER MD [facility] WOUNDCARE [id number] 08/25/2018 09:53:00 23:59:59 CLS Outpatient NOLBERTO THRASHER MD [facility] WOUNDCARE [id number] 08/18/2018 10:01:00 23:59:59 CLS Outpatient NOLBERTO THRASHER MD [facility] WOUNDCARE [id number] 08/11/2018 10:04:00 23:59:59 CLS Outpatient NOLBERTO THRASHER MD [facility] WOUNDCARE [id number] 08/01/2018 14:09:00 23:59:59 CLS Outpatient NOLBERTO THRASHER MD [facility] WOUNDCARE [id number] 07/28/2018 11:06:00 23:59:59 CLS Outpatient NOLBERTO THRASHER MD [facility] LAB L97.222, L97.322 [id number] 07/28/2018 09:14:00 23:59:59 CLS Outpatient NOLBERTO THRASHER MD [facility] WOUNDCARE
[2019-11-21] MEDS ORDERED: LIDOCAINE 1% INJ 20 ML 20 ML VIAL ONE (08:20)
[2019-11-21] MEDS ORDERED: LIDOCAINE 1% INJ 20 ML 20 ML VIAL INJ ONE (08:30)
[2019-11-21 08:57] VITALS: BP 185/86
--- NOTE | 2019-11-21 09:41 | Implantation of Loop Monitor ---
Implant of Loop Monitior IMPLANTATION OF LOOP MONITOR REPORT DATE OF PROCEDURE: 11/21/19 PREOP DIAGNOSIS: Cryptogenic stroke POSTOP DIAGNOSIS: Cryptogenic stroke PROCEDURE DETAILS: The patient is a 88 female with history of multiple cryptogenic TIA. Therefore implantable loop recorder was discussed and agreed with the patient. Informed consent was taken. All risks and complications were discussed at length. The patient was draped and prepped in the usual sterile fashion. Local anesthesia was lidocaine, which was given in the substernal area close to the 4th intercostal space. Loop monitor FedBid with serial number [id number] was implanted according to the protocol. Steri-Strips were placed at the end of the procedure. There were no complications and the patient tolerated the procedure well. The device was interrogated with a voltage of. ANESTHESIA: Local anesthesia with lidocaine. COMPLICATIONS: None CONTRAST/FLUOROSCOPY: None CONCLUSION: Successful implantation of loop recorder with no complication FINAL DIAGNOSIS: Recurrent cryptogenic TIA Hypertension Hyperlipidemia CRUZ DANIELS MD Nov 21, 2019 09:41
== END 2019-11-21 10:20 | disposition home or self-care (01) ==
LOC: CATH 07:50
PROVIDERS: ATTEND Internal Medicine Cardiovascular Disease
DX: Z86.73 Personal history of transient ischemic attack (TIA), and cerebral infarction without residual deficits (principal); I10 Essential (primary) hypertension; E78.5 Hyperlipidemia, unspecified
CPT/HCPCS: 33285; C1764

== ENCOUNTER → 2020-06-11 | Outpatient (CLI) | payer MEDICARE ==
[~2020-06-11] VITALS: Ht 152 cm; Wt 91.0 kg
[~2020-06-11] MED LIST changes: +CATHETER FLUSH 10 ML SYR IV PRN; -MONT10TA26 PO; +MONT10TA97 PO; +REGADENOSON 0.4 MG/5 ML SYR (LEXISCAN) IV ONE
[2020-06-11 08:53] VITALS: BP 179/85
--- NOTE | 2020-06-11 11:55 | Cardiology Stress Test Report ---
Stress Test Report Date of Procedure/Referring: Date of Procedure: Jun 11, 2020 PCP Cruz Fregoso MD Admitting Physician Baldo Ferreira DO Indications: Dyspnea Baseline Heart Rate: 86 Baseline Blood Pressure: Blood Pressure Systolic: 179 Blood Pressure Diastolic: 85 Baseline Vitals Vital Signs Date Time Temp Pulse Resp B/P (MAP) Pulse Ox O2 Delivery O2 Flow Rate FiO2 06/11/20 08:53 86 179/85 (116) 96 Nasal Cannula 3.00 Baseline EKG: Baseline EKG: atrial fibrillation Summary After explaining the procedure to the patient, she signed a consent and then brought to the stress nuclear laboratory. Patient received 0.4 mg Lexiscan for stress test, ECG, heart rate and blood pressure were monitored continuously. Resting and stress dose of radio tracer were injected, imaging was acquired and reviewed in short axis, horizontal long axis and vertical long axis views. TID: 1.15 SSS: 4 SDS: 0 EF: 89 1. Patient tolerated Lexiscan well 2. Breast attenuation with typical female pattern, no significant ischemia or infarction on SPECT images 3. Normal left ventricular size, EF 89 percent CRUZ FREGOSO MD Jun 11, 2020 11:55
== END ==
LOC: CARD 07:45
PROVIDERS: ATTEND Internal Medicine Cardiovascular Disease
DX: R06.00 Dyspnea, unspecified (principal)
CPT/HCPCS: 78452; 93017; A9502

== ENCOUNTER 2020-06-18 14:00 | Day surgery (SDC) | payer MEDICARE ==
[~2020-06-18] VITALS: Ht 151.1 cm; Wt 90.7 kg
--- NOTE | 2020-06-18 12:23 | Diagnostic Imaging Report ---
INDICATION: Pre-pacemaker placement. Time of exam 12:03 PM Comparison is made prior chest 08/03/2019. Heart size is normal. Lungs are clear. Monitoring device overlies the left heart. No effusion or pneumothorax. IMPRESSION: No acute cardiopulmonary process is detected. Dictated by: Dictated on workstation # [id number]
[2020-06-18 12:25] LABS: HEMOGLOBIN 12.6 g/dL (11.5-16.0); MEAN PLATELET VOLUME 9.3 fL (9.0-12.2); WHITE BLOOD COUNT 7.5 10^3/uL (4.3-11.0)
[2020-06-18 12:27] VITALS: BP 185/73
[2020-06-18 12:40] LABS: PROTHROMBIN TIME PATIENT 13.7 SEC (12.2-14.7)
[2020-06-18 12:46] LABS: BILIRUBIN,TOTAL 0.8 MG/DL (0.1-1.0); CALCIUM 9.5 MG/DL (8.5-10.1); POTASSIUM 3.6 MMOL/L (3.6-5.0); TOTAL PROTEIN 7.8 GM/DL (6.4-8.2)
--- NOTE | 2020-06-18 13:18 | NUR ---
I SPOKE WITH THE PATIENT, WENT THROUGH PT MEDS BROUGHT FROM HOME, CALLED [facility] TO COMPLETE THIS MED REC. FILL DATES FROM PT'S BOTTLES: 11/06/19 FUROSEMIDE 40MG #90/90DS -PT STILL HAS MEDS IN HER BOTTLE AND STATES THAT SHE IS STILL KEEP THESE, SO THAT IS WHY I KEPT IT ON THE MED REC. 03/21/20 ELIQUIS 5MG #180/90DS 04/15/20 DILTIAZEM ER 2 FILL DATES FROM [employer]: 05/21/20 LATANOPROST 0.005% EYE DROPS Addendum: 06/18/20 at 1337 by BASSAM MEZA [facility] FILL DATES FROM BOTTLES: 04/15/20 DILTIAZEM ER 120MG #90/90DS 04/16/20 CARVEDILOL 3.125 #[id number] 05/19/20 TIMOLOL MALATE 0.5% 05/19/20 LOSARTAN 100MG #90/90DS 05/29/20 OXYBUTYNIN 5MG #180/90DS 05/31/20 HCTZ 25MG #90/90DS OTC: ONE-A-DAY MULTIVITAMIN ASPIRIN CALCIUM + VIT D POTASSIUM ALEVE CRANBERRY AZO
[~2020-06-18 14:00] MED LIST changes: +APIX5TAB PO; +BACITRACIN INJECTION 50,000 UNIT, SODIUM CHLORIDE 0.9% IRRIGATIO 500 ML IR ONE; +CARV3.122 PO; -CATHETER FLUSH 10 ML SYR IV PRN; +CRAN400T3 PO; +DILT120C85 PO; +HEParin (CATH LAB) 1,000 ML IV ONE; +HYDR25TA4 PO; +LATA7.5D OU; +LIDOCAINE 1% INJ 20 ML 20 ML VIAL ONE; +MIDAZOLAM 5 MG/5 ML (VERSED) VIAL ONE; +MULT-1106 PO; +NAPR220T66 PO; +NS IV 1000 ML 1,000 ML IV SCH; +NS IV 1000 ML 1,000 ML ONE; +OXYB5TAB13 PO; +POTA99TA21 PO; +PUMP300C PO; -REGADENOSON 0.4 MG/5 ML SYR (LEXISCAN) IV ONE; +fentaNYL INJECTION 100 MCG/2 ML AMP ONE
[2020-06-18] MEDS ORDERED: NS IV 1000 ML 1,000 ML IV ONE (14:15)
[2020-06-18] MEDS ORDERED: ceFAZolin INJECTION 1,000 MG VIAL IV ONE (14:15)
[2020-06-18] MEDS ORDERED: meTOprolol 5 MG/5 ML (LOPRESSOR) VIAL ONE (14:33)
[2020-06-18] MEDS ORDERED: NS IV 1000 ML 1,000 ML ONE (14:35)
--- NOTE | 2020-06-18 15:20 | Cardiac Procedure Note-CS/ASA ---
Pre-Procedure Note Pre-Op Procedure Note H&P Reviewed The H&P was reviewed, patient examined and no changes noted. Date H&P Reviewed: Jun 18, 2020 Time H&P Reviewed: 15:20 Conscious Sedation Pre-Proced Time 15:20 ASA Score 3 For ASA 3 and 4: Consider anesthesia and medical clearance. Also, for patients with a history of failed moderate sedation consider anesthesia. Airway Lungs Heart ASA score ASA 1: a normal healthy patient ASA 2: a patient with a mild systemic disease (mid diabetes, controlled hypertension, obesity x ASA 3: a patient with a severe systemic disease that limits activity (angina, COPD, prior Myocardial infarction) ASA 4: a patient with an incapacitating disease that is a constant threat to life (CHF, renal failure) ASA 5: a moribund patient not expected to survive 24 hrs. (ruptured aneurysm) ASA 6: a declared brain- patient whose organs are being harvested. For emergent operations, add the letter E after the classification Mallampati Classification Grade 3 Sedation Plan Analgesia, Amnesia, Plan communicated to team members, Discussed options with patient/fam, Discussed risks with patient/fam The patient is an appropriate candidate to undergo the planned procedure, sedation, and anesthesia. The patient immediately re-assessed prior to indication. CRUZ DANIELS MD Jun 18, 2020 15:20
--- NOTE | 2020-06-18 15:24 | Permanent Pacemaker Implant ---
Dual Chamber Pacemaker Implant PROCEDURE PHYSICIAN: Cruz Daniels DUAL CHAMBER PACEMAKER IMPLANTATION: DATE OF PROCEDURE: 06/18/20 INDICATION: Sinus node dysfunction, paroxysmal atrial fibrillation PREOPERATIVE DIAGNOSIS: Sinus node dysfunction POSTOPERATIVE DIAGNOSIS: Sinus node dysfunction, paroxysmal atrial fibrillation HISTORY: Dual-chamber permanent pacemaker was recommended. PROCEDURE PERFORMED: 1. Dual-chamber permanent pacemaker implantation. 2. Fluoroscopy. 3. Central venous access. ANESTHESIA: Local anesthesia, conscious sedation. COMPLICATIONS: None. ESTIMATED BLOOD LOSS:20 mL. SPECIMENS: None. ORAL ANTICOAGULATION: None. FLUOROSCOPY TIME: FLUOROSCOPY DOSE: CONTRAST DOSE: PROCEDURE DETAILS: The patient is a 89 female with history of paroxysmal atrial fibrillation, sinus node dysfunction, had a loop recorder implant showing multiple episode of severe bradycardia in addition to episode of atrial fibrillation with rapid ventricular response, decision was made to proceed with permanent pacemaker implant and after all of the patients questions were answered, the patient was brought to the EP Lab. The patient's left chest was prepped and draped in sterile fashion. A 2 inch horizontal incision was made 1 cm below the clavicle and dissection carried down to the pectoralis fascia. Using the modified Seldinger technique and under fluoroscopy guidance, the anterior aspect of the left axillary vein was accessed 2 times. The J wires were secured to the drapes with a mosquito clamp. A 7-Austrian sheath was introduced over one of the J-wires. The RV lead was then inserted. The RV lead was directed across the tricuspid valve to the apical septal portion of the right ventricle. The position was checked in KIS[place]HILI and CEDILLO views. The screw was deployed and the lead connected to the computer game programmer. Close sensing and pacing thresholds were obtained. Diaphragmatic pacing was ruled out. The lead was secured with 2-0 silk ties to the underlying muscle and fascia. Next, a 7-Austrian sheath was introduced through the remaining J-wire. An atrial lead was then introduced and guided to the level of the right appendage. The screw was deployed and the lead was connected to the interrogator. Good sensing and pacing thresholds were obtained. Diaphragmatic pacing was ruled out. The leads were secured with 2-0 silk ties to the underlying muscle and fascia. The leads were connected to the device in a hermetic fashion. The device and leads were placed in the pocket. Aggressive irrigation with saline solution was done. The device was secured to the underlying muscle and fascia with a 2-0 silk tie. interrogation of the device revealed good integrity of all the leads and good connections. The wound was then closed using 2 layers. The first layer was interrupted 2-0 absorbable Vicryl suture. The last layer was a single subcuticular layer with 4- 0 Vicryl suture. Half inch Steri-Strips and a small dressing were then applied to the wound. The patient tolerated the procedure well and was returned to the recovery room in stable condition with stable vital signs. DEVICE INFORMATION: FRANCES THOMSON MRI [id number] RA LEAD: [id number] RV LEAD: [id number] PER-OPERATIVE DEVICE INTERROGATION: Good sensing and capture activity IMMEDIATE POSTOPERATIVE DEVICE INTERROGATION: Atrial lead, P-wave 1.2 mV, impedance 418, threshold 0.4 ms at 0.875V Ventricular lead, R-wave 5.1 mV, impedance 760, threshold 0.4 ms at 0.5 V PLAN: The patient transferred to the ICU. We will continue with two more doses of IV antibiotics. We will check a chest x-ray and interrogate the device in the morning. The patient will continue on oral antibiotics for 5 days. CONCLUSION: Successful implantation of dual-chamber pacemaker with no complication FINAL DIAGNOSIS: Sinus node dysfunction Paroxysmal atrial fibrillation Hypertension Hyperlipidemia CRUZ DANIELS MD Jun 18, 2020 15:24
[2020-06-18] MEDS ORDERED: NS IV 1000 ML 1,000 ML IV SCH (15:30)
[2020-06-18] MEDS ORDERED: PATIENT MAY USE OWN MEDS, ALL PO SCH (15:30)
--- NOTE | 2020-06-18 15:46 | Diagnostic Imaging Report ---
HISTORY: Post pacemaker placement. TECHNIQUE: Frontal view of the chest. COMPARISON: 06/18/2020. FINDINGS: The left-sided pacemaker leads are in typical position. The cardiac care nurse device is again seen. No pneumothorax is seen. Lung volumes are low. There are small bilateral pleural effusions with bibasilar atelectasis. The cardiac silhouette is stable in size. There is mild central vascular congestion. IMPRESSION: 1. Left pacemaker with no pneumothorax. 2. Small bilateral pleural effusions with bibasilar atelectasis. 3. Stable cardiomegaly with mild central vascular congestion. Dictated by: Dictated on workstation # [id number]
[2020-06-18] MEDS ORDERED: NAPROXEN 250 MG (NAPROSYN) TABLET PO PRN (18:00)
[2020-06-18] MEDS ORDERED: KETOROLAC 15 MG/ML VIAL IVP PRN (18:00)
[2020-06-18] MEDS: ceFAZolin INJECTION 1,000 MG in WATER (STERILE) FOR INJECTION 10 ML IV SCH (22:06)
[2020-06-19 03:00] LABS: MEAN PLATELET VOLUME 9.6 fL (9.0-12.2); WHITE BLOOD COUNT 8.1 10^3/uL (4.3-11.0)
[2020-06-19 03:17] LABS: ALANINE AMINOTRANSFERASE 13 U/L (0-55); ALBUMIN 3.2 GM/DL (3.2-4.5); ALKALINE PHOSPHATASE 58 U/L (40-136); BILIRUBIN,TOTAL 0.4 MG/DL (0.1-1.0); BUN/CREATININE RATIO 21; CALCIUM 8.7 MG/DL (8.5-10.1); CARBON DIOXIDE 24 MMOL/L (21-32); CHLORIDE 104 MMOL/L (98-107); CREATININE SERUM 0.87 MG/DL (0.60-1.30); GFR ESTIMATED > 60; GLUCOSE 109 MG/DL (70-105); POTASSIUM 3.8 MMOL/L (3.6-5.0); SODIUM 137 MMOL/L (135-145); TOTAL PROTEIN 6.2 GM/DL (6.4-8.2)
[2020-06-19 03:33] LABS: BILIRUBIN,URINE NEGATIVE (NEGATIVE); CLARITY,URINE CLEAR; COLOR,URINE YELLOW; GLUCOSE, URINE (UA) NEGATIVE (NEGATIVE); KETONES,URINE NEGATIVE (NEGATIVE); LEUKOCYTE ESTERASE ,URINE NEGATIVE (NEGATIVE); NITRITE,URINE NEGATIVE (NEGATIVE); PROTEIN,URINE NEGATIVE (NEGATIVE)
[2020-06-19 03:46] LABS: BACTERIA,URINE NEGATIVE /HPF
[2020-06-19] MEDS: ceFAZolin INJECTION 1,000 MG in WATER (STERILE) FOR INJECTION 10 ML IV SCH (06:15)
[2020-06-19] MEDS ORDERED: CEFU500T63 PO (06:27)
--- NOTE | 2020-06-19 06:28 | Discharge Inst-Cardiology ---
Discharge Inst-Cardiac Problems Reviewed?: Yes Discharge Medications New Medications: Cefuroxime Axetil (Cefuroxime) 500 Mg Tablet 500 MG PO BID, #10 TAB Continued Medications: Apixaban (Eliquis) 5 Mg Tablet 5 MG PO BID, TAB Aspirin (Low Dose Aspirin EC) 81 Mg Tablet.dr 81 MG PO DAILY Calcium Carbonate/Vitamin D3 (Calcium 600 + Vit D Caplet) 1 Each Tablet 2 EACH PO DAILY, TAB Carvedilol (Carvedilol) 3.125 Mg Tablet 3.125 MG PO BID, TAB Cranberry Fruit (Cranberry) 400 Mg Tablet 800 MG PO HS, TAB TAKES 2 (400MG) TABLETS Diltiazem HCl (Diltiazem ER) 120 Mg Capsule.er 120 MG PO DAILY, CAP Furosemide (Furosemide) 40 Mg Tablet 40 MG PO DAILY, TAB LAST FILLED 11/06/19 #90 90 DAY SUPPLY Hydrochlorothiazide (Hydrochlorothiazide) 25 Mg Tablet 25 MG PO DAILY, TAB Latanoprost/Pf (Latanoprost 0.005% Eye Drop) 7.5 Ml Drops 1 DROP OU HS, DROPS Losartan Potassium (Losartan Potassium) 100 Mg Tablet 100 MG PO DAILY Multivitamin (One-Daily Multi-Vitamin) 1 Each Tablet 1 EACH PO DAILY, TAB Naproxen Sodium (Aleve) 220 Mg Tablet 220 MG PO Q8H PRN for PAIN-MILD (1-4), TAB Oxybutynin Chloride (Oxybutynin Chloride) 5 Mg Tablet 5 MG PO BID, TAB Potassium Gluconate (Potassium) 99 Mg Tablet 99 MG PO DAILY, TAB Pumpkin Seed Extract/Soy Germ (Azo Bladder Control Capsule) 300 Mg Capsule 300 MG PO HS, CAP Timolol Maleate (Timolol Maleate 0.5%) 5 Ml Drops 1 DROP OU DAILY, DROPS New, Converted or Re-Newed RX: Transmitted to Pharmacy Patient Instructions Patient Instructions: Appointment with Dr Fregoso in 1 week Activity & Diet Discharge Diet: Low Sodium Diet Activity as Tolerated: Yes CRUZ FREGOSO MD Jun 19, 2020 06:28
--- NOTE | 2020-06-19 08:15 | NUR ---
DR DANIELS NOTIFIED THIS NURSE PT MAY GO HOME. DR DANIELS ALSO WOULD LIKE PACEMAKER DRESSING SITE CHANGE.
--- NOTE | 2020-06-19 09:03 | Cardiology Progress Note ---
Subjective Date Seen by Provider: Jun 19, 2020 Time Seen by Provider: 09:02 Subjective/Events-last exam patient is laying down in bed, feeling well. Denied any chest pain or shortness of breath. Site is healing well Review of Systems General: No Chills, No Night Sweats, No Fatigue, No Malaise, No Appetite, No Other HEENT: No Head Aches, No Visual Changes, No Eye Pain, No Ear Pain, No Dysphasia, No Sinus Congestion, No Post Nasal Drip, No Sore Throat, No Other Pulmonary: No Dyspnea, No Cough, No Pleuritic Chest Pain, No Other Cardiovascular: No: Chest Pain, Palpitations, Orthopnea, Paroxysmal Noc. Dyspnea, Edema, Lt Headedness, Other Objective-Cardiology Exam Last Set of Vital Signs Vital Signs 06/19/20 08:00 Temp 36.4 Pulse 68 Resp 11 B/P (MAP) 158/77 (104) Pulse Ox 99 O2 Delivery Nasal Cannula O2 Flow Rate 4.00 Capillary Refill : Less Than 3 Seconds I&O Intake and Output 06/19/20 00:00 Intake Total 860 ml Balance 860 ml Intake Oral 850 ml IV Total 10 ml # Voids 1 General: Alert, Oriented X3, Cooperative HEENT: Atraumatic, PERRLA Neck: Supple, No JVD, No Thyromegaly Lungs: Clear to Auscultation, Normal Air Movement Heart: Regular Rate, Normal S1, Normal S2, No Murmurs Abdomen: Normal Bowel Sounds, Soft, No Tenderness, No Hepatosplenomegaly, No Masses Extremities: No Clubbing, No Cyanosis, No Edema, Normal Pulses, No Tenderness/Swelling Skin: No Rashes, No Breakdown, No Significant Lesion Neuro: Normal Gait, Normal Speech, Strength at 5/5 X4 Ext, Normal Tone, Sensation Intact Psych/Mental Status: Mental Status NL, Mood NL Results Lab Laboratory Tests 06/18/20 12:19 06/19/20 02:33 A/P-Cardiology Admission Diagnosis sinus node dysfunction Paroxysmal atrial fibrillation Hypertension Hyperlipidemia Assessment/Plan sinus node dysfunction, bradycardia, status post dual-chamber pacemaker implantation site is healing well. Paroxysmal atrial fibrillation, restart allhome meds. Next Hypertension, controlled monitor blood pressure next Hyperlipidemia monitor lipids CRUZ DANIELS MD Jun 19, 2020 09:03
--- NOTE | 2020-06-19 10:30 | NUR ---
PACEMAKER SITE DRESSING CHANGED PER DR DANIELS. PT EDUCATED ON DISCHARGE INSTRUCTIONS, HOME MEDICATIONS, AND SITE CARE. PT STATED UNDERSTANDING. PT TAKEN TO CAR VIA WHEELCHAIR WITH BELONGINGS. SON TO TAKE PT HOME.
[2020-06-19 10:45] VITALS: BP 158/77
== END 2020-06-19 10:50 | disposition home or self-care (01) ==
LOC: CSD 15:49 → CATH 06-19 10:50
PROVIDERS: ATTEND Internal Medicine Cardiovascular Disease
DX: I48.0 Paroxysmal atrial fibrillation (principal); I10 Essential (primary) hypertension; E78.5 Hyperlipidemia, unspecified; G47.33 Obstructive sleep apnea (adult) (pediatric); J44.9 Chronic obstructive pulmonary disease, unspecified; E66.9 Obesity, unspecified; Z68.39 Body mass index [BMI] 39.0-39.9, adult; Z79.82 Long term (current) use of aspirin; Z79.899 Other long term (current) drug therapy; Z79.01 Long term (current) use of anticoagulants; Z88.2 Allergy status to sulfonamides; Z88.5 Allergy status to narcotic agent
CPT/HCPCS: 33208; 71045; 80053 ×2; 80061; 81000; 85027 ×2; 85610; 85730; 87081; 93005; C1785; C1898 ×2; 36415

== ENCOUNTER 2020-08-02 18:09 | Inpatient (IN) | payer MEDICARE ==
[~2020-08-02] VITALS: Ht 152.4 cm; Wt 93.5 kg
[~2020-08-02 18:09] MED LIST changes: -BACITRACIN INJECTION 50,000 UNIT, SODIUM CHLORIDE 0.9% IRRIGATIO 500 ML IR ONE; +CEFU500T63 PO; -HEParin (CATH LAB) 1,000 ML IV ONE; -LIDOCAINE 1% INJ 20 ML 20 ML VIAL ONE; -MIDAZOLAM 5 MG/5 ML (VERSED) VIAL ONE; +MONT10TA32 PO; -MONT10TA97 PO; -NS IV 1000 ML 1,000 ML IV SCH; -NS IV 1000 ML 1,000 ML ONE; -fentaNYL INJECTION 100 MCG/2 ML AMP ONE
[2020-08-02 18:44] LABS: BILIRUBIN,URINE NEGATIVE (NEGATIVE); COLOR,URINE YELLOW; GLUCOSE, URINE (UA) NEGATIVE (NEGATIVE); KETONES,URINE NEGATIVE (NEGATIVE); LEUKOCYTE ESTERASE ,URINE TRACE (NEGATIVE); NITRITE,URINE NEGATIVE (NEGATIVE); PROTEIN,URINE NEGATIVE (NEGATIVE)
[2020-08-02 18:46] LABS: BASOPHILS # (AUTO) 0.1 10^3/uL (0.0-0.1); BASOPHILS % (AUTO) 1 % (0-10); EOSINOPHILS # (AUTO) 0.4 10^3/uL (0.0-0.3); EOSINOPHILS % (AUTO) 3 % (0-10); HEMATOCRIT 34 % (35-52); HEMOGLOBIN 11.1 g/dL (11.5-16.0); LYMPHOCYTES # (AUTO) 0.8 10^3/uL (1.0-4.0); LYMPHOCYTES % (AUTO) 6 % (12-44); MEAN CORPUSCULAR HEMOGLOBIN 29 pg (25-34); MEAN CORPUSCULAR HGB CONC 33 g/dL (32-36); MEAN CORPUSCULAR VOLUME 90 fL (80-99); MEAN PLATELET VOLUME 9.7 fL (9.0-12.2); MONOCYTES # (AUTO) 1.7 10^3/uL (0.0-1.0); MONOCYTES % (AUTO) 13 % (0-12); NEUTROPHILS % (AUTO) 76 % (42-75); PLATELET COUNT 340 10^3/uL (130-400)
[2020-08-02 18:47] VITALS: BP 125/52
[2020-08-02 18:48] LABS: CLARITY,URINE CLEAR
[2020-08-02 18:51] LABS: BACTERIA,URINE LARGE /HPF; RBC,URINE 0-2 /HPF; SQUAMOUS EPITHELIAL CELL,UR 0-2 /HPF
[2020-08-02 18:52] LABS: INR 2.4 (0.8-1.4); PROTHROMBIN TIME PATIENT 26.2 SEC (12.2-14.7)
[2020-08-02 18:54] LABS: BAND NEUTROPHILS 8 %; EOSINOPHILS % (MANUAL) 4 %; LYMPHOCYTES % (MANUAL) 4 %; MONOCYTES % (MANUAL) 6 %; NEUTROPHILS % (MANUAL) 78 %; RBC MORPH NORMAL
[2020-08-02 19:07] LABS: MAGNESIUM 2.3 MG/DL (1.6-2.4)
--- NOTE | 2020-08-02 19:12 | Diagnostic Imaging Report ---
EXAMINATION: Chest radiograph, portable AP view. DATE: 08/02/2020 7:05 PM INDICATION: 89-year-old female, sepsis. Shortness of breath. COMPARISON: June 18, 2020. FINDINGS: There is a left-sided cardiac assist device with leads. Leads appear intact. Stable overall appearance of the cardiomediastinal silhouette. There is no identified pneumothorax. There is mild blunting of the right left lateral costophrenic angles. There is nonspecific bibasilar airspace consolidation. There are interstitial opacities with a mid and lower lung zone predominance. IMPRESSION: 1. Probable small bilateral pleural effusions with interstitial opacities with a mid and lower lung zone predominance which may reflect edema. Additional streaky opacities in the lung bases may relate to atelectasis and/or infiltrate. Dictated by: Dictated on workstation # [id number]
[2020-08-02 19:13] LABS: ALANINE AMINOTRANSFERASE 49 U/L (0-55); ALBUMIN 3.6 GM/DL (3.2-4.5); ALKALINE PHOSPHATASE 133 U/L (40-136); BILIRUBIN,TOTAL 1.1 MG/DL (0.1-1.0); BUN/CREATININE RATIO 17; CALCIUM 8.8 MG/DL (8.5-10.1); CARBON DIOXIDE 26 MMOL/L (21-32); CHLORIDE 92 MMOL/L (98-107); CREATININE SERUM 1.23 MG/DL (0.60-1.30); GFR ESTIMATED 41; GLUCOSE 124 MG/DL (70-105); POTASSIUM 3.6 MMOL/L (3.6-5.0); SODIUM 131 MMOL/L (135-145); TOTAL PROTEIN 7.3 GM/DL (6.4-8.2)
--- NOTE | 2020-08-02 19:18 | ED General ---
General Chief Complaint: Respiratory Problems Stated Complaint: SOA Nursing Triage Note: ARRIVED VIA EMS FROM HOME WITH COMPLAINTS OF INCREASED SOA AND FEVER. PT IS USUALLY ON 3L OF NC AND ARRIVED WITH 6L. Nursing Sepsis Screen: No Definite Risk Source of Information: Patient, EMS, Old Records Exam Limitations: No Limitations History of Present Illness Date Seen by Provider: Aug 02, 2020 Time Seen by Provider: 18:24 Initial Comments This 89-year-old woman presents to the emergency room via EMS with hypoxia and respiratory distress. She has been feeling ill for about a day and a half. She denies any fever or cough but EMS notes a fever of 101.6. She feels short of breath and has chest pressure. She has history of COPD, pulmonary hypertension, pacemaker, paroxysmal atrial fibrillation, and pneumonia. She got her first Covid vaccination last week. She is noted to be in bigeminy on the monitor. Oxygen saturation is in the upper 80s on 6 L by nasal cannula. She is noted to have bilateral lower extremity edema but states it is not as bad as her usual. Patient lives alone and uses oxygen continuously at 2 L. Son reports when they checked on her yesterday she had her oxygen flow turned off for a period of time. I discussed CODE STATUS with patient and her family. Everyone is in agreement that she should be a DNR status. Allergies and Home Medications Allergies Coded Allergies: Sulfa (Sulfonamide Antibiotics) (Verified Allergy, Intermediate, Rash, 07/02/19) acetaminophen (Verified Allergy, Intermediate, Rash, 07/02/19) Home Medications Apixaban 5 Mg Tablet, 5 MG PO BID, (Reported) Aspirin 81 Mg Tablet.dr, 81 MG PO DAILY, (Reported) Calcium Carbonate/Vitamin D3 1 Each Tablet, 2 EACH PO DAILY, (Reported) Carvedilol 3.125 Mg Tablet, 3.125 MG PO BID, (Reported) Cefuroxime Axetil 500 Mg Tablet, 500 MG PO BID Prescribed by: CRUZ FREGOSO on 06/19/20 0627 Cranberry Fruit 400 Mg Tablet, 800 MG PO HS, (Reported) TAKES 2 (400MG) TABLETS Diltiazem HCl 120 Mg Capsule.er, 120 MG PO DAILY, (Reported) Furosemide 40 Mg Tablet, 40 MG PO DAILY, (Reported) LAST FILLED 11/06/19 #90 90 DAY SUPPLY Hydrochlorothiazide 25 Mg Tablet, 25 MG PO DAILY, (Reported) Latanoprost/Pf 7.5 Ml Drops, 1 DROP OU HS, (Reported) Losartan Potassium 100 Mg Tablet, 100 MG PO DAILY, (Reported) Multivitamin 1 Each Tablet, 1 EACH PO DAILY, (Reported) Naproxen Sodium 220 Mg Tablet, 220 MG PO Q8H PRN for PAIN-MILD (1-4), (Reported) Oxybutynin Chloride 5 Mg Tablet, 5 MG PO BID, (Reported) Potassium Gluconate 99 Mg Tablet, 99 MG PO DAILY, (Reported) Pumpkin Seed Extract/Soy Germ 300 Mg Capsule, 300 MG PO HS, (Reported) Timolol Maleate 5 Ml Drops, 1 DROP OU DAILY, (Reported) Patient Home Medication List Home Medication List Reviewed: Yes Review of Systems Review of Systems Constitutional: see HPI, fever EENTM: no symptoms reported Respiratory: see HPI, short of breath Cardiovascular: see HPI Gastrointestinal: no symptoms reported Genitourinary: no symptoms reported : No Musculoskeletal: no symptoms reported Skin: no symptoms reported Psychiatric/Neurological: No Symptoms Reported Hematologic/Lymphatic: No Symptoms Reported Immunological/Allergic: no symptoms reported Past Tjswmea-Uekcog-Pxwbpb Hx Past Med/Social Hx: Reviewed Nursing Past Med/Soc Hx, Reviewed and Corrections made Patient Social History Alcohol Use: Denies Use Smoking Status: Unknown if Ever Smoked Recent Infectious Disease Expo: No Recent Hopitalizations: Yes ([facility]-Pneumonia, Sepsis, UTI (06/2019) ) Immunizations Up To Date Tetanus Booster (TDap): More than 5yrs PED Vaccines UTD: Yes Date of Influenza Vaccine: Feb 21, 2020 Seasonal Allergies Seasonal Allergies: No Past Medical History Surgeries: Yes (HIATAL HERNIA, BLADDER SURG, CATARACT SURG, LOOP IMPLANT) Appendectomy, Eye Surgery, Gallbladder, Hysterectomy, Pacemaker, Tonsillectomy, Urinary Diversion Respiratory: Yes Pneumonia, COPD Currently Using CPAP: No Currently Using BIPAP: No Cardiac: Yes (Pulmonary hypertension) Atrial Fibrillation (Paroxysmal), High Cholesterol, Hypertension, Irregular Heartbeat Neurological: Yes Neuropathy Female Reproductive Disorders: Denies Sexually Transmitted Disease: No HIV/AIDS: No Genitourinary: Yes (Nerve damage-SX in 1971) Bladder Infection Gastrointestinal: No Musculoskeletal: No Arthritis Endocrine: No HEENT: No Glaucoma Loss of Vision: Bilateral Hearing Impairment: Denies Cancer: Yes Skin Did You Recieve Any Treatments: Yes What Type of Treatment Did You: Surgical Intervention Psychosocial: No Integumentary: No Blood Disorders: No Adverse Reaction/Blood Tranf: No Family Medical History Alcoholism G8 BROTHER G8 BROTHER Asthma G8 BROTHER G8 BROTHER G8 BROTHER G8 BROTHER Cardiovascular disease 19 MOTHER G8 BROTHER G8 SISTER Cataracts 19 MOTHER G8 BROTHER G8 BROTHER G8 BROTHER G8 BROTHER Completed stroke 19 MOTHER G8 BROTHER Congenital disease Congenital heart disease G8 BROTHER Coronary thrombosis 19 MOTHER Deafness or hearing loss 19 FATHER G8 BROTHER Dementia Diabetes mellitus 19 MOTHER G8 BROTHER G8 BROTHER Drug abuse G8 BROTHER Glaucoma 19 FATHER G8 BROTHER G8 BROTHER Hypercholesterolemia 19 MOTHER G8 BROTHER G8 BROTHER Hypertension 19 MOTHER G8 BROTHER G8 BROTHER Myocardial infarction 19 MOTHER G8 BROTHER G8 BROTHER Thyroid disease G8 BROTHER Physical Exam-Suspected Sepsis Physical Exam Vital Signs Vital Signs - First Documented 08/02/20 08/02/20 18:09 21:43 Temp 37.6 Pulse 84 Resp 18 B/P (MAP) 145/71 (95) Pulse Ox 90 O2 Delivery Nasal Cannula O2 Flow Rate 6.00 FiO2 40 Capillary Refill : Less Than 3 Seconds Blood Pressure Mean: 95 Height, Weight, BMI Height: '" Weight: lbs. oz. kg; 33.00 BMI Method: General Appearance: WD/WN, Mild Distress (Respiratory) HEENT: PERRL/EOMI, Normal ENT Inspection Neck: Normal Inspection; No JVD Respiratory: Crackles (Bibasilar), Decreased Breath Sounds, Wheezing (Bibasilar), Other (Decreased air movement and tachypnea) Cardiovascular: No Edema, No JVD, No Murmur, Irregularly Irregular Gastrointestinal: Normal Bowel Sounds, Non Tender, Soft Extremity: Normal Inspection, Non Tender, Pedal Edema, Swelling Neurologic/Psychiatric: Alert, Oriented x3, No Motor/Sensory Deficits, Normal Mood/Affect, assistant restaurant general manager II-XII Norm as Tested Skin: normal color, warm/dry Focused Exam Sepsis Stage: Severe Sepsis Possible Source: Pulmonary Lactate Level 08/02/20 18:23: Lactic Acid Level 1.50 Time of Focused Exam: 20:15 Respiratory: Lungs Clear (anteriorly), Decreased Breath Sounds Cardiovascular: No Murmur, Irregularly Irregular Capillary Refill: Less Than 3 Seconds Peripheral Pulses: 1+ Radial Pulses (R) Skin: normal color, warm/dry Lactic Acid Level Within 3hrs of presentation: Admin ABX, Blood cultures prior to ABX's, Focus exam, Lactate level Progress/Results/Core Measures Suspected Sepsis Recent Fever Within 48 Hours: Yes Infection Criteria Present: Suspected New Infection New/Unexplained Altered Menta: No Sepsis Screen: No Definite Risk SIRS Temperature: Pulse: 78 Respiratory Rate: 18 Laboratory Tests 08/02/20 18:23: White Blood Count 13.0H 08/03/20 03:52: White Blood Count 8.6 Blood Pressure 125 /52 Mean: 95 08/02/20 18:23: Lactic Acid Level 1.50 Laboratory Tests 08/02/20 18:23: Creatinine 1.23, INR Comment 2.4H, Platelet Count 340, Total Bilirubin 1.1H 08/03/20 03:52: Creatinine 1.09, Platelet Count 285 Results/Orders Lab Results Laboratory Tests Test 08/02/20 18:23 08/02/20 18:35 08/03/20 03:52 Range/Units White Blood Count 13.0 H 8.6 4.3-11.0 10^3/uL Red Blood Count 3.77 L 3.46 L 3.80-5.11 10^6/uL Hemoglobin 11.1 L 10.2 L 11.5-16.0 g/dL Hematocrit 34 L 31 L 35-52 % Mean Corpuscular Volume 90 89 80-99 fL Mean Corpuscular Hemoglobin 29 30 25-34 pg Mean Corpuscular Hemoglobin Concent 33 33 32-36 g/dL Red Cell Distribution Width 14.0 13.9 10.0-14.5 % Platelet Count 340 285 130-400 10^3/uL Mean Platelet Volume 9.7 10.0 9.0-12.2 fL Immature Granulocyte % (Auto) 1 1 % Neutrophils (%) (Auto) 76 H 87 H 42-75 % Lymphocytes (%) (Auto) 6 L 10 L 12-44 % Monocytes (%) (Auto) 13 H 3 0-12 % Eosinophils (%) (Auto) 3 0 0-10 % Basophils (%) (Auto) 1 0 0-10 % Neutrophils # (Auto) 10.0 H 7.5 1.8-7.8 10^3/uL Lymphocytes # (Auto) 0.8 L 0.8 L 1.0-4.0 10^3/uL Monocytes # (Auto) 1.7 H 0.3 0.0-1.0 10^3/uL Eosinophils # (Auto) 0.4 H 0.0 0.0-0.3 10^3/uL Basophils # (Auto) 0.1 0.0 0.0-0.1 10^3/uL Immature Granulocyte # (Auto) 0.1 0.0 0.0-0.1 10^3/uL Neutrophils % (Manual) 78 86 % Lymphocytes % (Manual) 4 9 % Monocytes % (Manual) 6 1 % Eosinophils % (Manual) 4 0 % Band Neutrophils 8 2 % Blood Morphology Comment NORMAL Prothrombin Time 26.2 H 12.2-14.7 SEC INR Comment 2.4 H 0.8-1.4 Activated Partial Thromboplast Time 47 H 24-35 SEC Sodium Level 131 L 132 L 135-145 MMOL/L Potassium Level 3.6 3.5 L 3.6-5.0 MMOL/L Chloride Level 92 L 94 L 98-107 MMOL/L Carbon Dioxide Level 26 25 21-32 MMOL/L Anion Gap 13 13 5-14 MMOL/L Blood Urea Nitrogen 21 H 23 H 7-18 MG/DL Creatinine 1.23 1.09 0.60-1.30 MG/DL Estimat Glomerular Filtration Rate 41 47 BUN/Creatinine Ratio 17 21 Glucose Level 124 H 141 H 70-105 MG/DL Lactic Acid Level 1.50 0.50-2.00 MMOL/L Calcium Level 8.8 8.5 8.5-10.1 MG/DL Corrected Calcium 9.1 8.5-10.1 MG/DL Magnesium Level 2.3 2.3 1.6-2.4 MG/DL Total Bilirubin 1.1 H 0.1-1.0 MG/DL Aspartate Amino Transf (AST/SGOT) 49 H 5-34 U/L Alanine Aminotransferase (ALT/SGPT) 49 0-55 U/L Alkaline Phosphatase 133 40-136 U/L Lactate Dehydrogenase 302 H 125-220 U/L Myoglobin 68.8 10.0-92.0 NG/ML Troponin I < 0.028 < 0.028 <0.028 NG/ML C-Reactive Protein High Sensitivity 16.24 H 0.00-0.50 MG/DL B-Type Natriuretic Peptide 664.3 H <100.0 PG/ML Total Protein 7.3 6.4-8.2 GM/DL Albumin 3.6 3.2-4.5 GM/DL Procalcitonin 0.19 H <0.10 NG/ML TSH [place] Testing 2.82 0.35-4.94 UIU/ML Coronavirus 2019 (MICHELL) Negative Negative Urine Color YELLOW Urine Clarity CLEAR Urine pH 6.0 5-9 Urine Specific [place] 1.010 L 1.016-1.022 Urine Protein NEGATIVE NEGATIVE Urine Glucose (UA) NEGATIVE NEGATIVE Urine Ketones NEGATIVE NEGATIVE Urine Nitrite NEGATIVE NEGATIVE Urine Bilirubin NEGATIVE NEGATIVE Urine Urobilinogen 0.2 < = 1.0 MG/DL Urine Leukocyte Esterase TRACE H NEGATIVE Urine RBC (Auto) NEGATIVE NEGATIVE Urine RBC 0-2 /HPF Urine WBC 2-5 /HPF Urine Squamous Epithelial Cells 0-2 /HPF Urine Crystals NONE /LPF Urine Bacteria LARGE H /HPF Urine Casts NONE /LPF Urine Mucus NEGATIVE /LPF Urine Culture Indicated CULTURE PENDING Basophils % (Manual) 0 % Reactive Lymphocytes 2 % Toxic Granulation 1+ Polychromasia SLIGHT Anisocytosis SLIGHT Phosphorus Level 3.8 2.3-4.7 MG/DL Triglycerides Level 80 <150 MG/DL Cholesterol Level 141 < 200 MG/DL LDL Cholesterol Direct 84 1-129 MG/DL VLDL Cholesterol 16 5-40 MG/DL HDL Cholesterol 43 40-60 MG/DL Micro Results Microbiology 08/02/20 Influenza Types A,B Antigen ([place]) - Final, Complete My Orders Orders - TRI GAXIOLA MD Cbc With Automated Diff (08/02/20 18:34) Comprehensive Metabolic Panel (08/02/20 18:34) Blood Culture (08/02/20 18:34) Sputum Culture (08/02/20 18:34) Urinalysis (08/02/20 18:34) Urine Culture (08/02/20 18:34) Protime With Inr (08/02/20 18:34) Partial Thromboplastin Time (08/02/20 18:34) Chest 1 View, Ap/Pa Only (08/02/20 18:34) Ed Iv/Invasive Line Start (08/02/20 18:34) Ed Iv/Invasive Line Start (08/02/20 18:34) Vital Signs Adult Sepsis Patie Q15M (08/02/20 18:34) O2 (08/02/20 18:34) Remove Rings In Anticipation O (08/02/20 18:34) Lactic Acid Analyzer (08/02/20 18:34) Influenza A And B Antigens (08/02/20 18:34) [place] Cath (08/02/20 18:34) Magnesium (08/02/20 18:34) Ekg Tracing (08/02/20 18:34) Myoglobin Serum (08/02/20 18:34) Monitor-Rhythm Ecg Trace Only (08/02/20 18:34) BNP (08/02/20 18:34) Troponin I (08/02/20 18:34) Procalcitonin (Pct) (08/02/20 18:34) Hs C Reactive Protein (08/02/20 18:34) LDH (08/02/20 18:34) Covid 19 Inhouse Test (08/02/20 18:34) Dexamethasone Injection (Decadron Inje (08/02/20 18:45) Albuterol Inhaler (Ventolin Hfa) (08/02/20 22:00) Manual Differential (08/02/20 18:23) Thyroid Analyzer (08/02/20 18:55) Piperacillin Sodium/Tazobactam (Zosyn Vi (08/02/20 19:30) Furosemide Injection (Lasix Injection) (08/02/20 19:45) Coronavirus Sars-Cov-2 So 2018 (08/02/20 19:44) Medications Given in ED Current Medications Medications Dose Ordered Sig/Ivory Route Start Time Stop Time Status Last Admin Dose Admin Furosemide 40 mg ONCE ONCE IVP 08/02/20 19:45 08/02/20 19:46 DC 08/02/20 20:20 40 MG Vital Signs/I&O 08/02/20 08/02/20 08/02/20 08/02/20 21:00 21:08 21:15 21:29 Temp 37.3 37.9 Pulse 73 78 97 75 Resp 15 26 18 B/P (MAP) 128/90 (95) 146/65 (92) Pulse Ox 96 95 98 O2 Delivery NIV Bilevel NIV Bilevel O2 Flow Rate 40.00 40.00 08/02/20 08/02/20 08/02/20 08/02/20 21:30 21:43 21:45 22:00 Pulse 74 81 73 Resp 16 16 17 B/P (MAP) 135/59 (84) 125/64 (84) 120/49 (72) Pulse Ox 97 98 95 97 O2 Delivery NIV Bilevel NIV Bilevel NIV Bilevel NIV Bilevel O2 Flow Rate 40.00 40.00 40.00 FiO2 40 08/02/20 08/02/20 08/02/20 08/02/20 22:50 22:59 23:00 23:20 Temp 37.1 37.6 Pulse 84 80 Resp 16 B/P (MAP) 119/56 (77) Pulse Ox 90 98 97 O2 Delivery NIV Bilevel NIV Bilevel NIV Bilevel O2 Flow Rate 40.00 40.00 FiO2 40 40 08/03/20 08/03/20 08/03/20 08/03/20 00:00 00:30 00:50 01:12 Temp 36.8 Pulse 73 79 78 Resp 17 26 B/P (MAP) 121/53 (75) Pulse Ox 97 98 O2 Delivery NIV Bilevel NIV Bilevel O2 Flow Rate 40.00 40.00 35.00 08/03/20 08/03/20 08/03/20 08/03/20 01:15 01:59 03:00 03:03 Pulse 71 Resp 23 B/P (MAP) 132/64 (86) Pulse Ox 92 O2 Delivery NIV Bilevel Nasal Cannula Nasal Cannula Non Rebreather O2 Flow Rate 35.00 4.00 4.00 15.00 08/03/20 08/03/20 08/03/20 08/03/20 04:00 04:00 04:18 04:22 Temp 36.7 Pulse 75 Resp 21 B/P (MAP) 129/51 (77) Pulse Ox 98 98 O2 Delivery Non Rebreather Non Rebreather High Flow N/C High Flow N/C O2 Flow Rate 15.00 15.00 5.00 6.00 08/03/20 08/03/20 08/03/20 08/03/20 04:27 05:00 06:00 06:50 Pulse 60 60 Resp 16 20 B/P (MAP) 110/58 (75) 129/64 (85) Pulse Ox 97 98 O2 Delivery NIV Bilevel NIV Bilevel NIV Bilevel NIV Bilevel O2 Flow Rate 35.00 35.00 35.00 FiO2 30 08/03/20 08/03/20 06:52 07:00 Pulse 80 60 Resp 26 Pulse Ox 98 O2 Flow Rate 30.00 Capillary Refill : Less Than 3 Seconds Blood Pressure Mean: 95 Progress Note : Time: 20:25 Progress Note Septic work-up and cardiac work-up were pursued. Chest x-ray and labs were consistent with pneumonia and pulmonary congestion. EKG showed bigeminy. Patient was given Zosyn after blood cultures and lactic acid were drawn. Lasix was given after discussion with Dr. Fregoso. We will continue her carvedilol and Eliquis on admission. Patient was doing quite well on BiPAP set at 16/8, rate 16, FiO2 40%. Oxygen saturation was 100%. She received albuterol 4 puffs in li ne with the BiPAP. Dexamethasone 6 mg was administered. Rapid flu and Covid were negative. Covid PCR is pending. Family was updated. Severe sepsis was considered due to the respiratory failure. However, we are avoiding large volume fluid resuscitation because of the pulmonary congestion and normal lactic acid. ECG Initial ECG Impression Date: Aug 02, 2020 Initial ECG Impression Time: 18:32 Initial ECG Rate: 117 Comment Ventricular bigeminy with no ST elevation. Borderline left axis deviation. Diagnostic Imaging Diagonstic Imaging: Xray Plain Films/CT/US/NM/MRI: chest Comments Chest x-ray viewed by me and report reviewed. Compared with prior. See report below: NAME: YANET DIXON [facility] REC#: [id number] PT STATUS: REG ER : 1930 PHYSICIAN: TRI GAXIOLA MD ADMIT DATE: 08/02/20/ER Draft Date of Exam:08/02/20 CHEST 1 VIEW, AP/PA ONLY EXAMINATION: Chest radiograph, portable AP view. DATE: 08/02/2020 7:05 PM INDICATION: 89-year-old female, sepsis. Shortness of breath. COMPARISON: June 18, 2020. FINDINGS: There is a left-sided cardiac assist device with leads. Leads appear intact. Stable overall appearance of the cardiomediastinal silhouette. There is no identified pneumothorax. There is mild blunting of the right left lateral costophrenic angles. There is nonspecific bibasilar airspace consolidation. There are interstitial opacities with a mid and lower lung zone predominance. IMPRESSION: 1. Probable small bilateral pleural effusions with interstitial opacities with a mid and lower lung zone predominance which may reflect edema. Additional streaky opacities in the lung bases may relate to atelectasis and/or infiltrate. Dictated on workstation # [id number] Dict: 08/02/201909 Trans: 08/02/201910 [facility] [id number] Interpreted by: ONEIDA MCCAULEY MD Departure Communication (Admissions) Time/Spoke to Admitting Phy: 19:30 Dr. Esparza Time/Spoke to Consulting Phy: 19:35 Dr. Fregoso Impression Primary Impression: Severe sepsis Additional Impressions: Respiratory failure Qualified Codes: J96.21 - Acute and chronic respiratory failure with hypoxia COPD exacerbation Lower lobe pneumonia Qualified Codes: J18.9 - Pneumonia, unspecified organism Person under investigation for COVID-19 Bigeminy Pulmonary congestion Disposition: ADMITTED INPATIENT Condition: Improved Admissions Decision to Admit Reason: Admit from ER (General) Decision to Admit/Date: Aug 02, 2020 Time/Decision to Admit Time: 18:30 Departure-Patient Inst. Referrals: FRANCIE PACK DO (PCP/Family) Primary Care Physician Copy Copies To 1: FRANCIE PACK JOSHUA T MD Aug 02, 2020 19:18
[2020-08-02] MEDS ORDERED: PIPERACILLIN SODIUM/TAZOBACTAM 4.5 GM in NS (IVPB) 100 ML IV ONE (19:30)
[2020-08-02] MEDS ORDERED: FUROSEMIDE 40 MG/4 ML INJ (LASIX) IVP ONE (19:45)
[2020-08-02] MEDS: RT-ALBUTEROL INHALER HFA (VENTOLIN HFA) 18 GM IH SCH (21:08)
[2020-08-02] MEDS ORDERED: CATHETER FLUSH 10 ML SYR IV PRN (22:00)
[2020-08-02] MEDS ORDERED: EPINEPHrine 1 MG INJECTION 4 MG in NS (IVPB) 248 ML IV SCH (22:00)
[2020-08-02] MEDS ORDERED: ONDANSETRON 4 MG/2 ML (SDV) Z0FRAN IV PRN (22:00)
[2020-08-02] MEDS: VASOPRESSIN INJECTION 20 UNIT in NS (IVPB) 100 ML IV SCH (22:34)
[2020-08-02] MEDS: NOREPINEPHRINE 8 MG/250 ML 250 ML IV SCH (22:34)
[2020-08-02] MEDS: CARVEDILOL 3.125 MG (COREG) TABLET PO SCH (22:44)
[2020-08-02] MEDS: CATHETER FLUSH 10 ML SYR IV SCH (22:45)
[2020-08-02] MEDS: APIXABAN 5 MG (ELIQUIS) TABLET PO SCH (22:45)
[2020-08-02 22:59] VITALS: BP 145/71
[2020-08-03] MEDS ORDERED: RT-ALBUTEROL INHALER HFA (VENTOLIN HFA) 18 GM IH PRN
[2020-08-03] MEDS: RT-ALBUTEROL INHALER HFA (VENTOLIN HFA) 18 GM IH SCH ×7 (01:10→22:01)
[2020-08-03] MEDS ORDERED: NS (IVPB) 100 ML ONE (03:58)
[2020-08-03] MEDS ORDERED: PIPERACILLIN/TAZO 4.5 GM VIAL (ZOSYN) IV ONE (03:58)
[2020-08-03 04:09] LABS: BASOPHILS % (AUTO) 0 % (0-10); EOSINOPHILS % (AUTO) 0 % (0-10); HEMATOCRIT 31 % (35-52); HEMOGLOBIN 10.2 g/dL (11.5-16.0); LYMPHOCYTES # (AUTO) 0.8 10^3/uL (1.0-4.0); LYMPHOCYTES % (AUTO) 10 % (12-44); MEAN CORPUSCULAR HEMOGLOBIN 30 pg (25-34); MEAN CORPUSCULAR HGB CONC 33 g/dL (32-36); MEAN CORPUSCULAR VOLUME 89 fL (80-99); MONOCYTES # (AUTO) 0.3 10^3/uL (0.0-1.0); MONOCYTES % (AUTO) 3 % (0-12); NEUTROPHILS # (AUTO) 7.5 10^3/uL (1.8-7.8); NEUTROPHILS % (AUTO) 87 % (42-75); PLATELET COUNT 285 10^3/uL (130-400); WHITE BLOOD COUNT 8.6 10^3/uL (4.3-11.0)
[2020-08-03] MEDS: PIPERACILLIN/TAZOBACTAM (BULK) 4.5 GM in NS (IVPB) 100 ML IV SCH ×3 (04:17→19:59)
[2020-08-03 04:19] LABS: CHLORIDE 94 MMOL/L (98-107); POTASSIUM 3.5 MMOL/L (3.6-5.0); SODIUM 132 MMOL/L (135-145)
[2020-08-03 04:20] LABS: CALCIUM 8.5 MG/DL (8.5-10.1)
[2020-08-03 04:21] LABS: GLUCOSE 141 MG/DL (70-105); TRIGLYCERIDES 80 MG/DL (<150); VLDL CHOLESTEROL 16 MG/DL (5-40)
[2020-08-03 04:22] LABS: CARBON DIOXIDE 25 MMOL/L (21-32)
[2020-08-03 04:24] LABS: PHOSPHORUS 3.8 MG/DL (2.3-4.7)
[2020-08-03 04:25] LABS: CREATININE SERUM 1.09 MG/DL (0.60-1.30); GFR ESTIMATED 47
[2020-08-03 04:26] LABS: BUN/CREATININE RATIO 21; CHOLESTEROL 141 MG/DL (< 200)
[2020-08-03 04:27] LABS: HDL CHOLESTEROL 43 MG/DL (40-60); MAGNESIUM 2.3 MG/DL (1.6-2.4)
[2020-08-03] MEDS: KCL 20 MEQ TAB (K-DUR) PO SCH (04:32)
[2020-08-03] MEDS: POTASSIUM CL 10MEQ/50ML IVPB 50 ML IV SCH ×2 (04:32→05:58)
[2020-08-03] MEDS: MAGNESIUM 1 GM/100 ML IVPB 100 ML IV SCH (04:33)
[2020-08-03] MEDS: VASOPRESSIN INJECTION 20 UNIT in NS (IVPB) 100 ML IV SCH ×2 (04:33→13:54)
[2020-08-03 04:44] LABS: NEUTROPHILS % (MANUAL) 86 %
[2020-08-03 04:45] LABS: ANISOCYTOSIS SLIGHT; BAND NEUTROPHILS 2 %; BASOPHILS % (MANUAL) 0 %; EOSINOPHILS % (MANUAL) 0 %; LYMPHOCYTES % (MANUAL) 9 %; MONOCYTES % (MANUAL) 1 %; POLYCHROMASIA SLIGHT; REACTIVE LYMPHOCYTES 2 %; TOXIC GRANULATION/VACUOLAZATIO 1+
[2020-08-03] MEDS: CATHETER FLUSH 10 ML SYR IV SCH ×3 (05:58→20:01)
--- NOTE | 2020-08-03 07:52 | Diagnostic Imaging Report ---
INDICATION: Respiratory distress. Time of exam: 3:26 AM Correlation is made with prior chest one day earlier. Heart size stable. Cardiac pacemaker remains in place. There is some central congestion. Mild bibasilar infiltrates or atelectasis is unchanged. There appears to be small effusions. There is no pneumothorax. IMPRESSION: Stable chest since exam one day earlier. Dictated by: Dictated on workstation # [id number]
[2020-08-03] MEDS: APIXABAN 5 MG (ELIQUIS) TABLET PO SCH ×2 (08:43→20:01)
[2020-08-03] MEDS: CARVEDILOL 3.125 MG (COREG) TABLET PO SCH ×2 (08:43→17:05)
--- NOTE | 2020-08-03 11:26 | History & Physical-Hospitalist ---
History of Present Illness HPI/Chief Complaint Pt is an 89yoCF with a PMH of COPD on 2lpm baseline, pHTN, a-fib, right foot drop who presented to the ER due to shortness of breath via EMS. She reports that her symptoms started two days ago with shortness of breath and fever. She was hoping it would get better but it continued to worsen so she contacted her kids who called EMS. She denies cough, travel, sick contacts, loss of taste or smell. She lives home alone. She was vaccinated for COVID last week with her second dose due 08/26. She has also been vaccinated for flu. When EMS arrived she had a fever of 101.6 and required 6lpm to maintains oxygenation but ultimately required BiPAP due to work of breathing. She was admitted to the ICU due to severe sepsis from pneumonia. She reports feeling much better this morning and breathing is easier. Source: patient Date Seen 08/03/20 Time Seen by a Provider: 08:30 Attending Physician Flor Esparza MD PCP Baldo Pack DO Referring Physician Date of Admission Aug 02, 2020 at 19:47 Home Medications & Allergies Home Medications Reviewed patient Home Medication Reconciliation performed by pharmacy medication reconciliations underwriting technician and/or nursing. Patients Allergies have been reviewed. Allergies Allergies Coded Allergies Sulfa (Sulfonamide Antibiotics) (Verified Allergy, Intermediate, Rash, 07/02/19) acetaminophen (Verified Allergy, Intermediate, Rash, 07/02/19) Past Dvzkamy-Eiszpm-Mbecqq Hx Past Med/Social Hx: Reviewed and Corrections made Patient Social History Alcohol Use: Denies Use Recreational Drug Use: No Smoking Status: Never a Smoker Recent Foreign Travel: No Contact w/other who traveled: No Recent Hopitalizations: Yes ([facility]-Pneumonia, Sepsis, UTI (06/2019) ) Recent Infectious Disease Expo: No Immunizations Up To Date Tetanus Booster (TDap): More than 5yrs Pediatric: Yes Date of Influenza Vaccine: Feb 21, 2020 Seasonal Allergies Seasonal Allergies: No Past Medical History Surgeries: Appendectomy, Eye Surgery, Gallbladder, Hysterectomy, Pacemaker, Tonsillectomy, Urinary Diversion Respiratory: COPD, Pneumonia Currently Using CPAP: No Currently Using BIPAP: No Cardiac: Atrial Fibrillation (Paroxysmal), High Cholesterol, Hypertension, Irregular Heartbeat Neurological: 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 Sexually Transmitted Disease: No HIV/AIDS: No Female Reproductive Disorders: Denies Genitourinary: Bladder Infection Musculoskeletal: Arthritis HEENT: Glaucoma Loss of Vision: Bilateral Hearing Impairment: Denies Cancer: Skin Did You Recieve Any Treatments: Yes What Type of Treatment Did You: Surgical Intervention History of Blood Disorders: No Adverse Reaction to Blood Duke: No Family History Reviewed Nursing Family Hx Alcoholism G8 BROTHER G8 BROTHER Asthma G8 BROTHER G8 BROTHER G8 BROTHER G8 BROTHER Cardiovascular disease 19 MOTHER G8 BROTHER G8 SISTER Cataracts 19 MOTHER G8 BROTHER G8 BROTHER G8 BROTHER G8 BROTHER Completed stroke 19 MOTHER G8 BROTHER Congenital disease Congenital heart disease G8 BROTHER Coronary thrombosis 19 MOTHER Deafness or hearing loss 19 FATHER G8 BROTHER Dementia Diabetes mellitus 19 MOTHER G8 BROTHER G8 BROTHER Drug abuse G8 BROTHER Glaucoma 19 FATHER G8 BROTHER G8 BROTHER Hypercholesterolemia 19 MOTHER G8 BROTHER G8 BROTHER Hypertension 19 MOTHER G8 BROTHER G8 BROTHER Myocardial infarction 19 MOTHER G8 BROTHER G8 BROTHER Thyroid disease G8 BROTHER Review of Systems Constitutional: No chills; fever, malaise EENTM: no symptoms reported Respiratory: No cough; dyspnea on exertion; No hemoptysis; short of breath Cardiovascular: No chest pain, No palpitations Gastrointestinal: No abdominal pain, No constipation, No diarrhea, No loss of appetite, No nausea, No vomiting Genitourinary: No discharge, No dysuria Musculoskeletal: no symptoms reported Skin: no symptoms reported Psychiatric/Neurological: No Symptoms Reported Physical Exam Physical Exam Vital Signs Vital Signs - First Documented 08/02/20 08/02/20 18:09 21:43 Temp 37.6 Pulse 84 Resp 18 B/P (MAP) 145/71 (95) Pulse Ox 90 O2 Delivery Nasal Cannula O2 Flow Rate 6.00 FiO2 40 Capillary Refill : Less Than 3 Seconds Height, Weight, BMI Height: '" Weight: lbs. oz. kg; 41.07 BMI Method: General Appearance: No Apparent Distress, Chronically ill, Obese HEENT: PERRL/EOMI, Moist Mucous Membranes Neck: Normal Inspection, Supple Respiratory: No Accessory Muscle Use, Wheezing (scant), Other (on BiPAP) Cardiovascular: Regular Rate, Rhythm, No Murmur Gastrointestinal: Normal Bowel Sounds, Non Tender, Soft Genital/Rectal: Other (souza in place) Extremity: No Calf Tenderness, Pedal Edema (patient reports chronic and R always worse than L, states they look better today than normal) Neurologic/Psychiatric: Alert, Oriented x3, Normal Mood/Affect Results Results/Procedures Labs Laboratory Tests 08/02/20 18:23 08/03/20 03:52 Patient resulted labs reviewed. Imaging: Reviewed Imaging Report Imaging [facility]. [place], [place] NAME: YANET DIXON [facility] REC#: [id number] PT STATUS: REG ER : 1930 PHYSICIAN: TRI GAXIOLA MD ADMIT DATE: 08/02/20/ER Signed Date of Exam:08/02/20 CHEST 1 VIEW, AP/PA ONLY EXAMINATION: Chest radiograph, portable AP view. DATE: 08/02/2020 7:05 PM INDICATION: 89-year-old female, sepsis. Shortness of breath. COMPARISON: June 18, 2020. FINDINGS: There is a left-sided cardiac assist device with leads. Leads appear intact. Stable overall appearance of the cardiomediastinal silhouette. There is no identified pneumothorax. There is mild blunting of the right left lateral costophrenic angles. There is nonspecific bibasilar airspace consolidation. There are interstitial opacities with a mid and lower lung zone predominance. IMPRESSION: 1. Probable small bilateral pleural effusions with interstitial opacities with a mid and lower lung zone predominance which may reflect edema. Additional streaky opacities in the lung bases may relate to atelectasis and/or infiltrate. Dictated by: Dictated on workstation # [id number] Dict: 08/02/201909 Trans: 08/02/201952 CV [id number] Interpreted by: ONEIDA MCCAULEY MD Electronically signed by: ONEIDA MCCAULEY MD 08/02/201952 Assessment/Plan Admission Diagnosis Severe Sepsis from PNA Acute on chronic hypoxic respiratory failure Admission Status: Inpatient Order (span 2 midnights) Reason for Inpatient Admission: see below Assessment and Plan Severe Sepsis from PNA Acute on chronic hypoxic respiratory failure COPD exacerbation COVID PUI Continue on IVF Leukocytosis improved, fever curve trending down Await cultures Trial on BiPAP, leave for prn use and HS Continue on Steroids (decadron as is PUI) COVID rapid negative, PCR pending pAF HTN Cardiology consulted, appreciate recs Niraj noted in ER Continue Eliquis Continue Coreg Rate controlled BP well controlled Echo ordered HLD Obesity Glaucoma OAB No acute needs, resume home meds when med rec available DVT ppx: Already on Eliquis Diagnosis/Problems Diagnosis/Problems (1) Atrial fibrillation (2) Essential (primary) hypertension (3) Obesity (4) Hyperlipidemia (5) Normocytic anemia (6) Severe sepsis Status: Acute (7) Lower lobe pneumonia Status: Acute Qualifiers: Pneumonia type: due to unspecified organism Laterality: bilateral Qualified Codes: J18.9 - Pneumonia, unspecified organism (8) Person under investigation for COVID-19 Status: Acute (9) Respiratory failure Status: Acute Qualifiers: Chronicity: acute on chronic Respiratory failure complication: hypoxia Qualified Codes: J96.21 - Acute and chronic respiratory failure with hypoxia (10) COPD exacerbation Status: Acute (11) Foot drop, right (12) Hypertension (13) Edema Copy Copies To 1: BALDO PACK KATELYN M MD Aug 03, 2020 11:26
[2020-08-03] MEDS: NOREPINEPHRINE 8 MG/250 ML 250 ML IV SCH (11:38)
--- NOTE | 2020-08-03 12:19 | Consultation-Cardiology ---
HPI-Cardiology Cardiology Consultation Date of Consultation 08/03/20 Date of Admission Time Seen by Provider: 12:13 Indication: shortness of breath HPI 89 years old lady with history of hypertension, permanent pacemaker, paroxysmal atrial fibrillation, she received her Covid vaccination last week, has not been feeling well, reported some chills, fever. Increasing shortness of breath. Brought to the hospital by EMT. She was hypoxemic, currently on Vapotherm, still having dyspnea at rest. Denied any chest pain. No syncope or near syncopal episode Home Medications & Allergies Allergies: Coded Allergies: Sulfa (Sulfonamide Antibiotics) (Verified Allergy, Intermediate, Rash, 07/02/19) acetaminophen (Verified Allergy, Intermediate, Rash, 07/02/19) Home Medication List Reviewed: Yes MVS-Umtbcz-Dvhdqo Hx Patient Social History Recreational Drug Use: No Smoking Status: Never a Smoker Recent [place] [place]/2019[place] Have you traveled recently?: No Alcohol Use?: No Immunizations Up To Date Tetanus Booster (TDap): More than 5yrs Date of Influenza Vaccine: Feb 21, 2020 Past Medical History Discussed below Family Medical History Family History: Alcoholism G8 BROTHER G8 BROTHER Asthma G8 BROTHER G8 BROTHER G8 BROTHER G8 BROTHER Cardiovascular disease 19 MOTHER G8 BROTHER G8 SISTER Cataracts 19 MOTHER G8 BROTHER G8 BROTHER G8 BROTHER G8 BROTHER Completed stroke 19 MOTHER G8 BROTHER Congenital disease Congenital heart disease G8 BROTHER Coronary thrombosis 19 MOTHER Deafness or hearing loss 19 FATHER G8 BROTHER Dementia Diabetes mellitus 19 MOTHER G8 BROTHER G8 BROTHER Drug abuse G8 BROTHER Glaucoma 19 FATHER G8 BROTHER G8 BROTHER Hypercholesterolemia 19 MOTHER G8 BROTHER G8 BROTHER Hypertension 19 MOTHER G8 BROTHER G8 BROTHER Myocardial infarction 19 MOTHER G8 BROTHER G8 BROTHER Thyroid disease G8 BROTHER Review of Systems-General Review of Systems Constitutional: No chills; fever, malaise EENTM: no symptoms reported Respiratory: No cough; dyspnea on exertion; No hemoptysis; phlegm, short of breath Cardiovascular: see HPI; No chest pain, No palpitations Gastrointestinal: No abdominal pain, No constipation, No diarrhea, No loss of appetite, No nausea, No vomiting Genitourinary: see HPI; No discharge, No dysuria : No Musculoskeletal: no symptoms reported, see HPI Skin: no symptoms reported, see HPI Psychiatric/Neurological: No Symptoms Reported, See HPI Reviewed Test Results Reviewed Test Results Lab Laboratory Tests Test 08/02/20 18:23 08/02/20 18:35 08/03/20 03:52 08/03/20 09:20 Range/Units White Blood Count 13.0 H 8.6 4.3-11.0 10^3/uL Red Blood Count 3.77 L 3.46 L 3.80-5.11 10^6/uL Hemoglobin 11.1 L 10.2 L 11.5-16.0 g/dL Hematocrit 34 L 31 L 35-52 % Mean Corpuscular Volume 90 89 80-99 fL Mean Corpuscular Hemoglobin 29 30 25-34 pg Mean Corpuscular Hemoglobin Concent 33 33 32-36 g/dL Red Cell Distribution Width 14.0 13.9 10.0-14.5 % Platelet Count 340 285 130-400 10^3/uL Mean Platelet Volume 9.7 10.0 9.0-12.2 fL Immature Granulocyte % (Auto) 1 1 % Neutrophils (%) (Auto) 76 H 87 H 42-75 % Lymphocytes (%) (Auto) 6 L 10 L 12-44 % Monocytes (%) (Auto) 13 H 3 0-12 % Eosinophils (%) (Auto) 3 0 0-10 % Basophils (%) (Auto) 1 0 0-10 % Neutrophils # (Auto) 10.0 H 7.5 1.8-7.8 10^3/uL Lymphocytes # (Auto) 0.8 L 0.8 L 1.0-4.0 10^3/uL Monocytes # (Auto) 1.7 H 0.3 0.0-1.0 10^3/uL Eosinophils # (Auto) 0.4 H 0.0 0.0-0.3 10^3/uL Basophils # (Auto) 0.1 0.0 0.0-0.1 10^3/uL Immature Granulocyte # (Auto) 0.1 0.0 0.0-0.1 10^3/uL Neutrophils % (Manual) 78 86 % Lymphocytes % (Manual) 4 9 % Monocytes % (Manual) 6 1 % Eosinophils % (Manual) 4 0 % Band Neutrophils 8 2 % Blood Morphology Comment NORMAL Prothrombin Time 26.2 H 12.2-14.7 SEC INR Comment 2.4 H 0.8-1.4 Activated Partial Thromboplast Time 47 H 24-35 SEC Sodium Level 131 L 132 L 135-145 MMOL/L Potassium Level 3.6 3.5 L 3.6-5.0 MMOL/L Chloride Level 92 L 94 L 98-107 MMOL/L Carbon Dioxide Level 26 25 21-32 MMOL/L Anion Gap 13 13 5-14 MMOL/L Blood Urea Nitrogen 21 H 23 H 7-18 MG/DL Creatinine 1.23 1.09 0.60-1.30 MG/DL Estimat Glomerular Filtration Rate 41 47 BUN/Creatinine Ratio 17 21 Glucose Level 124 H 141 H 70-105 MG/DL Lactic Acid Level 1.50 0.50-2.00 MMOL/L Calcium Level 8.8 8.5 8.5-10.1 MG/DL Corrected Calcium 9.1 8.5-10.1 MG/DL Magnesium Level 2.3 2.3 1.6-2.4 MG/DL Total Bilirubin 1.1 H 0.1-1.0 MG/DL Aspartate Amino Transf (AST/SGOT) 49 H 5-34 U/L Alanine Aminotransferase (ALT/SGPT) 49 0-55 U/L Alkaline Phosphatase 133 40-136 U/L Lactate Dehydrogenase 302 H 125-220 U/L Myoglobin 68.8 10.0-92.0 NG/ML Troponin I < 0.028 < 0.028 <0.028 NG/ML C-Reactive Protein High Sensitivity 16.24 H 0.00-0.50 MG/DL B-Type Natriuretic Peptide 664.3 H <100.0 PG/ML Total Protein 7.3 6.4-8.2 GM/DL Albumin 3.6 3.2-4.5 GM/DL Procalcitonin 0.19 H <0.10 NG/ML TSH Rice Testing 2.82 0.35-4.94 UIU/ML Coronavirus 2019 (MICHELL) Negative Negative Urine Color YELLOW Urine Clarity CLEAR Urine pH 6.0 5-9 Urine Specific [place] 1.010 L 1.016-1.022 Urine Protein NEGATIVE NEGATIVE Urine Glucose (UA) NEGATIVE NEGATIVE Urine Ketones NEGATIVE NEGATIVE Urine Nitrite NEGATIVE NEGATIVE Urine Bilirubin NEGATIVE NEGATIVE Urine Urobilinogen 0.2 < = 1.0 MG/DL Urine Leukocyte Esterase TRACE H NEGATIVE Urine RBC (Auto) NEGATIVE NEGATIVE Urine RBC 0-2 /HPF Urine WBC 2-5 /HPF Urine Squamous Epithelial Cells 0-2 /HPF Urine Crystals NONE /LPF Urine Bacteria LARGE H /HPF Urine Casts NONE /LPF Urine Mucus NEGATIVE /LPF Urine Culture Indicated CULTURE PENDING Basophils % (Manual) 0 % Reactive Lymphocytes 2 % Toxic Granulation 1+ Polychromasia SLIGHT Anisocytosis SLIGHT Phosphorus Level 3.8 2.3-4.7 MG/DL Triglycerides Level 80 <150 MG/DL Cholesterol Level 141 < 200 MG/DL LDL Cholesterol Direct 84 1-129 MG/DL VLDL Cholesterol 16 5-40 MG/DL HDL Cholesterol 43 40-60 MG/DL Physical Exam Physical Exam Vital Signs Vital Signs - First Documented 08/02/20 08/02/20 18:09 21:43 Temp 37.6 Pulse 84 Resp 18 B/P (MAP) 145/71 (95) Pulse Ox 90 O2 Delivery Nasal Cannula O2 Flow Rate 6.00 FiO2 40 Capillary Refill : Less Than 3 Seconds Height, Weight, BMI Height: '" Weight: lbs. oz. kg; 41.07 BMI Method: General Appearance: No Apparent Distress, Chronically ill, Obese HEENT: PERRL/EOMI, Moist Mucous Membranes Neck: Normal Inspection, Supple Respiratory: No Accessory Muscle Use, Wheezing (scant), Other (on BiPAP) Cardiovascular: Regular Rate, Rhythm, No Murmur Gastrointestinal: Normal Bowel Sounds, Non Tender, Soft Genital/Rectal: Other (souza in place) Extremity: No Calf Tenderness, Pedal Edema (patient reports chronic and R always worse than L, states they look better today than normal) Neurologic/Psychiatric: Alert, Oriented x3, Normal Mood/Affect A/P-Cardiology Admission Diagnosis Acute respiratory failure Shortness of breath Atrial fibrillation Congestive heart failure Assessment/Plan Shortness of breath, acute respiratory insufficiency, pneumonia, COVID-19 pending, receiving antibiotic, managed by primary care team Congestive heart failure, acute left ventricular diastolic dysfunction, known to have normal ejection fraction during stress test in May 2020, I will evaluate 2-D echocardiogram Sinus node dysfunction, history of permanent pacemaker, alternating between sinus rhythm and atrial paced rhythm. Continue to monitor Paroxysmal atrial fibrillation, has been maintained on oral anticoagulation as an outpatient. Restart Eliquis and monitor tolerance and response Hypertension, borderline hypotensive. Monitor blood pressure Hyperlipidemia, monitor lipids CRUZ DANIELS MD Aug 03, 2020 12:19
[2020-08-03] MEDS: LATANOPROST 0.005% (XALATAN) OPHTH SOLN 2.5 ML OU SCH (20:00)
[2020-08-03] MEDS: TIMOLOL MALEATE 0.5% 5 ML (TIMOPTIC) BTL OU SCH (20:01)
[2020-08-04] MEDS: RT-ALBUTEROL INHALER HFA (VENTOLIN HFA) 18 GM IH SCH ×8 (01:46→22:28)
[2020-08-04] MEDS: VASOPRESSIN INJECTION 20 UNIT in NS (IVPB) 100 ML IV SCH ×4 (01:47→21:39)
[2020-08-04] MEDS: NOREPINEPHRINE 8 MG/250 ML 250 ML IV SCH ×2 (03:43→13:41)
[2020-08-04] MEDS: PIPERACILLIN/TAZOBACTAM (BULK) 4.5 GM in NS (IVPB) 100 ML IV SCH ×3 (04:10→20:03)
[2020-08-04 04:13] LABS: BASOPHILS % (AUTO) 0 % (0-10); EOSINOPHILS % (AUTO) 0 % (0-10); HEMATOCRIT 31 % (35-52); HEMOGLOBIN 10.3 g/dL (11.5-16.0); LYMPHOCYTES % (AUTO) 8 % (12-44); MEAN CORPUSCULAR HEMOGLOBIN 29 pg (25-34); MEAN CORPUSCULAR HGB CONC 33 g/dL (32-36); MEAN CORPUSCULAR VOLUME 88 fL (80-99); MEAN PLATELET VOLUME 10.3 fL (9.0-12.2); MONOCYTES # (AUTO) 0.8 10^3/uL (0.0-1.0); MONOCYTES % (AUTO) 6 % (0-12); NEUTROPHILS # (AUTO) 10.6 10^3/uL (1.8-7.8); NEUTROPHILS % (AUTO) 85 % (42-75); PLATELET COUNT 350 10^3/uL (130-400); WHITE BLOOD COUNT 12.5 10^3/uL (4.3-11.0)
[2020-08-04 04:28] LABS: INR 1.4 (0.8-1.4); PROTHROMBIN TIME PATIENT 17.3 SEC (12.2-14.7)
[2020-08-04 04:41] LABS: BUN/CREATININE RATIO 29; CALCIUM 8.1 MG/DL (8.5-10.1); CARBON DIOXIDE 23 MMOL/L (21-32); CHLORIDE 94 MMOL/L (98-107); CREATININE SERUM 1.13 MG/DL (0.60-1.30); GFR ESTIMATED 45; GLUCOSE 143 MG/DL (70-105); MAGNESIUM 3.3 MG/DL (1.6-2.4); PHOSPHORUS 2.5 MG/DL (2.3-4.7); POTASSIUM 3.7 MMOL/L (3.6-5.0); SODIUM 129 MMOL/L (135-145)
[2020-08-04] MEDS: KCL 20 MEQ TAB (K-DUR) PO SCH (05:03)
[2020-08-04] MEDS: MAGNESIUM 1 GM/100 ML IVPB 100 ML IV SCH (05:03)
[2020-08-04] MEDS: POTASSIUM CL 10MEQ/50ML IVPB 50 ML IV SCH (05:03)
[2020-08-04] MEDS: CATHETER FLUSH 10 ML SYR IV SCH ×3 (06:25→20:05)
--- NOTE | 2020-08-04 07:23 | Diagnostic Imaging Report ---
INDICATION: Respiratory distress COMPARISON: 08/03/2020 FINDINGS: Single view OF the chest demonstrates stable cardiac enlargement with central vascular congestion and small effusions. There is dependent atelectasis. Lung volumes are low. Loop recorder is seen in the left base. There is a cardiac pacemaker in stable position. IMPRESSION: Unchanged aeration of the lungs. Dictated by: Dictated on workstation # [id number]
[2020-08-04] MEDS: CARVEDILOL 3.125 MG (COREG) TABLET PO SCH ×2 (08:57→17:41)
[2020-08-04] MEDS: APIXABAN 5 MG (ELIQUIS) TABLET PO SCH (09:04)
[2020-08-04] MEDS: TIMOLOL MALEATE 0.5% 5 ML (TIMOPTIC) BTL OU SCH ×2 (09:04→20:04)
--- NOTE | 2020-08-04 09:29 | Cardiology Progress Note ---
Subjective Date Seen by Provider: Aug 04, 2020 Time Seen by Provider: 09:25 Subjective/Events-last exam Patient is laying down in bed, feeling better, breathing better, had mild pedal edema Review of Systems General: No Chills, No Night Sweats; Fatigue, Malaise; No Appetite, No Other HEENT: No Head Aches, No Visual Changes, No Eye Pain, No Ear Pain, No Dysphasia, No Sinus Congestion, No Post Nasal Drip, No Sore Throat, No Other Pulmonary: Dyspnea; No Cough, No Pleuritic Chest Pain, No Other Cardiovascular: No: Chest Pain, Palpitations, Orthopnea, Paroxysmal Noc. Dyspnea, Edema, Lt Headedness, Other Focused Exam Lactate Level 08/02/20 18:23: Lactic Acid Level 1.50 Time of Focused Exam: 20:15 Objective-Cardiology Exam Last Set of Vital Signs Vital Signs 08/04/20 08/04/20 08/04/20 08/04/20 06:00 07:56 08:45 09:08 Temp 36.2 Pulse 75 Resp 25 B/P (MAP) 152/86 (108) Pulse Ox 91 O2 Delivery Vapotherm O2 Flow Rate 15.00 21.00 FiO2 30 Capillary Refill : Less Than 3 Seconds I&O Intake and Output 08/04/20 00:00 Intake Total 3410 ml Output Total 2150 ml Balance 1260 ml Intake Oral 3070 ml IV Total 340 ml Output Urine Total 2150 ml General: Alert, Oriented X3, Cooperative HEENT: Atraumatic, PERRLA Neck: Supple, No JVD, No Thyromegaly Lungs: Normal Air Movement, Other (bilateral rhonchi) Heart: Regular Rate, Normal S1, Normal S2, Other (systolic murmur at the left sternal border) Abdomen: Normal Bowel Sounds, Soft, No Tenderness, No Hepatosplenomegaly, No Masses Extremities: No Clubbing, No Cyanosis, Normal Pulses, No Tenderness/Swelling, Other (pedal edema) Skin: No Rashes, No Breakdown, No Significant Lesion Neuro: Normal Gait, Normal Speech, Strength at 5/5 X4 Ext, Normal Tone, Sensation Intact Psych/Mental Status: Mental Status NL, Mood NL Results Lab Laboratory Tests 08/04/20 03:30 A/P-Cardiology Admission Diagnosis Acute respiratory failure Shortness of breath Atrial fibrillation Congestive heart failure Assessment/Plan Shortness of breath, acute respiratory insufficiency, pneumonia, receiving antibiotic and improving slowly. Continue to monitor Congestive heart failure, acute left ventricular diastolic dysfunction, echocardiogram done on August 04, 2020 showing normal left ventricular systolic function, ejection fraction 60 percent, mild mitral regurgitation, mild aortic stenosis, pulmonary artery pressure of 40-45 mmHg. Starting Lasix and monitor tolerance and response Pedal edema, started on Lasix. Monitor tolerance and response Sinus node dysfunction, history of permanent pacemaker, alternating between sinus rhythm and atrial paced rhythm. Continue to monitor Paroxysmal atrial fibrillation, has been maintained on oral anticoagulation as an outpatient. Restart Eliquis and monitor tolerance and response Hypertension, was hypotensive initially, blood pressure is better. Started on Lasix. Hyperlipidemia, monitor lipids CRUZ DANIELS MD Aug 04, 2020 09:29
[2020-08-04] MEDS ORDERED: FUROSEMIDE 40 MG/4 ML INJ (LASIX) IVP NR (09:30)
--- NOTE | 2020-08-04 10:28 | Physical Therapy Evaluation ---
PT Evaluation-General Medical Diagnosis Admission Date Aug 02, 2020 at 19:47 Medical Diagnosis: respiratory failure/COPD exacerbation Onset Date: Aug 02, 2020 Therapy Diagnosis Therapy Diagnosis: generalized weakness/debility Precautions Precautions/Isolations: Fall Prevention, Standard Precautions, Pressure Ulcer Weight Bear Status Right Lower Extremity: Right Weight Bearing/Tolerated Referral Physician: Isaias Reason for Referral: Evaluation/Treatment Medical History Pertinent Medical History: Atrial Fib, CAD, COPD, HTN, Neuropathy (right drop foot) Current History EMS secondary to increase SOA and fever Reviewed History: Yes Social History Home: Single Level Current Living Status: Alone Prior Prior Level of Function SCALE: Activities may be completed with or without assistive devices. 2-Fylwrifkhc-sohcked completes the activity by him/herself with no assistance from a helper. 5-Set-up or Clean-up Assistance-helper sets up or cleans up; patient completes activity. [place] assists only prior to or following the activity. 4-Supervision or Touching Assistance-helper provides verbal cues and/or touching/steadying and/or contact guard assistance as patient completes activity. Assistance may be provided throughout the activity or intermittently. 3-Partial/Moderate Assistance-helper does LESS THAN HALF the effort. [place] lifts, holds or supports trunk or limbs, but provides less than half the effort. 2-Substantial/Maximal Assistance-helper does MORE THAN HALF the effort. [place] lifts or holds trunk or limbs and provides more than half the effort. 9-Wzwufjarv-gtykjy does ALL the effort. Patient does none of the effort to complete the activity. Or, the assistance of 2 or more helpers is required for the patient to complete the activity. If activity was not attempted, code reason: 7-Patient Refused. 9-Not Applicable-not attempted and the patient did not perform the activity before the current illness, exacerbation or injury. 10-Not Attempted due to Environmental Limitations-(lack of equipment, weather restraints, etc.). 88-Not Attempted due to Medical Conditions or Safety Concerns. Bed Mobility: 6 Transfers (B,C,W/C): 6 Gait: 6 Indoor Mobility (Ambulation): Independent Stairs: Not Applicalbe Prior Devices Use: Walker PT Evaluation-Current Subjective Patient agrees to PT. Objective Patient Orientation: Normal For Age Attachments: Oxygen (vapotherm), [place] Catheter, IV ROM/Strength ROM Lower Extremities bilateral LE WFL Strength Lower Extremities right drop foot; knee flexion/extension 3-/5; hip flexion 3-/5 left LE 3/5 grossly Integumentary/Posture Integumentary refer to nursing notes Bowel Incontinence: No Bladder Incontinence: [place]vo Cath Posture slightly kyphotic Neuromuscular (Tone, Coordination, Reflexes) diminished coordination due to weakness Sensory Vision: Functional Hearing: Functional Sensation Right Lower Extremit: Impaired Sensation Left Lower Extremity: Impaired Transfers Roll Left to Right (QC): 3 Sit to Lying (QC): 3 Lying to Sitting/Side of Bed(Q: 3 Sit to Stand (QC): 2 Chair/Arz-bf-Fwjxa Xfer(QC): 2 Gait Does the Patient Walk?: No and Walking Goal IS indicated Balance Sitting Static: Fair Sitting Dynamic: Fair Standing Static: Fair Standing Dynamic: Fair Assessment/Needs 89y.o. female, will benefit from skilled PT to address functional strength and mobility to improve current LOF. Rehab Potential: Guarded PT Half-Way Goals Half-Way Goals PT Half-Way Goals Time Frame: Aug 16, 2020 Roll Left & Right (QC): 5 Sit to Lying (QC): 5 Lying-Sitting on Side/Bed(QC): 5 Sit to Stand (QC): 5 Chair/Arc-vr-Chqhc Xfer(QC): 5 Toilet Transfer (QC): 5 Does the Patient Walk: Yes Walk 10 feet (QC): 5 Walk 50ft with 2 Turns (QC): 5 PT Plan Problem List Problem List: Activity Tolerance, Functional Strength, Safety, Balance, Gait, Transfer, Bed Mobility Treatment/Plan Treatment Plan: Continue Plan of Care Treatment Plan: Bed Mobility, Education, Functional Activity Chrissy, Functional Strength, Gait, Safety, Therapeutic Exercise, Transfers Treatment Duration: Aug 16, 2020 Frequency: 6 times per week Estimated Hrs Per Day: .25 hour per day Patient and/or Family Agrees t: Yes Discharge Recommendations Therapy Discharge Recommendati: Other, See Comments ([facility] facility) Time/GCodes Time In: 840 Time Out: 900 Total Billed Treatment Time: 20 Total Billed Treatment 1 visit EVModC 20 min MARYBEL JI PT Aug 04, 2020 10:28
[2020-08-04] MEDS ORDERED: RIVA20TA PO (11:09)
[2020-08-04] MEDS ORDERED: DILT-27 PO (11:09)
[2020-08-04] MEDS ORDERED: ASPI-999 PO (11:09)
[2020-08-04] MEDS ORDERED: HYDR-3924 PO (11:09)
[2020-08-04] MEDS ORDERED: ESTR0.5T3 PO (11:09)
[2020-08-04] MEDS ORDERED: NEO/3.5O18 OP (11:12)
--- NOTE | 2020-08-04 15:53 | Progress Note - Hospitalist ---
Subjective HPI/CC On Admission Date Seen by Provider: Aug 04, 2020 Time Seen by Provider: 09:45 Pt is an 89yoCF with a PMH of COPD on 2lpm baseline, pHTN, a-fib, right foot drop who presented to the ER due to shortness of breath via EMS. She reports that her symptoms started two days ago with shortness of breath and fever. She was hoping it would get better but it continued to worsen so she contacted her kids who called EMS. She denies cough, travel, sick contacts, loss of taste or smell. She lives home alone. She was vaccinated for COVID last week with her second dose due 08/26. She has also been vaccinated for flu. When EMS arrived she had a fever of 101.6 and required 6lpm to maintains oxygenation but ultimately required BiPAP due to work of breathing. She was admitted to the ICU due to severe sepsis from pneumonia. She reports feeling much better this morning and breathing is easier. Subjective/Events-last exam She still feels short of breath. She denies chest pain. She denies fevers. She denies cough. Focused Exam Lactate Level 08/02/20 18:23: Lactic Acid Level 1.50 Time of Focused Exam: 20:15 Objective Exam Vital Signs Vital Signs Date Time Temp Pulse Resp B/P (MAP) Pulse Ox O2 Delivery O2 Flow Rate FiO2 08/04/20 15:02 95 High Flow N/C 2.00 08/04/20 15:00 72 28 124/81 (95) 08/04/20 11:20 36.7 08/04/20 08:50 20 Capillary Refill : Less Than 3 Seconds General Appearance: No Apparent Distress, Obese Respiratory: No Respiratory Distress, Wheezing Cardiovascular: Regular Rate, Rhythm, No Edema, No Murmur Gastrointestinal: Normal Bowel Sounds, Non Tender, Soft Extremity: Normal Inspection, Non Tender, No Pedal Edema Neurologic/Psychiatric: Alert, Oriented x3, No Motor/Sensory Deficits, Normal Mood/Affect Skin: Normal Color, Warm/Dry Results/Procedures Lab Laboratory Tests 08/04/20 03:30 Patient resulted labs reviewed. Imaging: Reviewed Imaging Report Assessment/Plan Assessment and Plan Assess & Plan/Chief Complaint Acute on chronic respiratory failure with hypoxia PNA COPD exacerbation Continue antibiotics Continue steroids Continue pulmonary toilet pAF HTN HFpEF Cardiology consulted, appreciate recs Transition to Xarelto Continue Coreg Rate controlled BP well controlled Echo with grade I diastolic dysfunction HLD Obesity Glaucoma Overactive bladder No acute needs, resume home meds when med rec available DVT prophylaxis: already receiving therapeutic anticoagulation Severe sepsis, resolved Diagnosis/Problems Diagnosis/Problems (1) Acute on chronic respiratory failure with hypoxia Status: Acute (2) PNA (pneumonia) Status: Acute (3) COPD with exacerbation Status: Acute (4) Afib Status: Acute (5) HTN (hypertension) Status: Chronic (6) HLD (hyperlipidemia) Status: Chronic (7) Obesity Status: Chronic EFFIE PATEL MD Aug 04, 2020 15:53
[2020-08-04] MEDS: FUROSEMIDE 40 MG/4 ML INJ (LASIX) IVP SCH (17:41)
[2020-08-04] MEDS: LATANOPROST 0.005% (XALATAN) OPHTH SOLN 2.5 ML OU SCH (20:05)
[2020-08-05] MEDS: RT-ALBUTEROL INHALER HFA (VENTOLIN HFA) 18 GM IH SCH ×6 (02:09→22:18)
[2020-08-05] MEDS: PIPERACILLIN/TAZOBACTAM (BULK) 4.5 GM in NS (IVPB) 100 ML IV SCH ×3 (04:02→21:05)
[2020-08-05] MEDS: NOREPINEPHRINE 8 MG/250 ML 250 ML IV SCH (04:02)
[2020-08-05 04:14] LABS: BASOPHILS % (AUTO) 0 % (0-10); EOSINOPHILS % (AUTO) 0 % (0-10); HEMATOCRIT 34 % (35-52); HEMOGLOBIN 11.2 g/dL (11.5-16.0); LYMPHOCYTES # (AUTO) 1.1 10^3/uL (1.0-4.0); LYMPHOCYTES % (AUTO) 7 % (12-44); MEAN CORPUSCULAR HEMOGLOBIN 29 pg (25-34); MEAN CORPUSCULAR HGB CONC 33 g/dL (32-36); MEAN CORPUSCULAR VOLUME 88 fL (80-99); MONOCYTES % (AUTO) 6 % (0-12); NEUTROPHILS # (AUTO) 13.4 10^3/uL (1.8-7.8); NEUTROPHILS % (AUTO) 86 % (42-75); PLATELET COUNT 462 10^3/uL (130-400); WHITE BLOOD COUNT 15.6 10^3/uL (4.3-11.0)
[2020-08-05 04:42] LABS: BUN/CREATININE RATIO 32; CALCIUM 8.1 MG/DL (8.5-10.1); CARBON DIOXIDE 25 MMOL/L (21-32); CHLORIDE 98 MMOL/L (98-107); CREATININE SERUM 1.11 MG/DL (0.60-1.30); GFR ESTIMATED 46; GLUCOSE 124 MG/DL (70-105); MAGNESIUM 2.5 MG/DL (1.6-2.4); PHOSPHORUS 3.3 MG/DL (2.3-4.7); POTASSIUM 3.6 MMOL/L (3.6-5.0); SODIUM 136 MMOL/L (135-145)
[2020-08-05] MEDS: POTASSIUM CL 10MEQ/50ML IVPB 50 ML IV SCH (04:48)
[2020-08-05] MEDS: KCL 20 MEQ TAB (K-DUR) PO SCH (04:48)
[2020-08-05] MEDS: MAGNESIUM 1 GM/100 ML IVPB 100 ML IV SCH (04:48)
[2020-08-05] MEDS: CATHETER FLUSH 10 ML SYR IV SCH ×3 (04:48→21:06)
[2020-08-05] MEDS: FUROSEMIDE 40 MG/4 ML INJ (LASIX) IVP SCH ×2 (05:18→16:59)
[2020-08-05] MEDS: TIMOLOL MALEATE 0.5% 5 ML (TIMOPTIC) BTL OU SCH ×2 (07:55→21:06)
[2020-08-05] MEDS: VASOPRESSIN INJECTION 20 UNIT in NS (IVPB) 100 ML IV SCH (07:55)
[2020-08-05] MEDS: CARVEDILOL 3.125 MG (COREG) TABLET PO SCH ×2 (07:55→21:05)
[2020-08-05] MEDS: RIVAROXABAN 15 MG TABLET (XARELTO) PO SCH (07:55)
[2020-08-05] MEDS ORDERED: KCL 20 MEQ TAB (K-DUR) PO SCH (08:00)
--- NOTE | 2020-08-05 08:15 | Diagnostic Imaging Report ---
INDICATION: Follow-up respiratory distress, ICU management. TECHNIQUE: Single view chest 3:16 AM. CORRELATION STUDY: 08/04/2020 FINDINGS: Left-sided pacemaker along with a loop recorder device. Heart size and mediastinum are generally stable. Vasculature generally stable. Asymmetric opacity both lung bases likely a combination of effusion along with atelectasis, infiltrate and/or edema right greater than left. IMPRESSION: 1. Stable heart size with borderline vasculature. 2. Combination of effusion along with atelectasis, infiltrate and/or edema at both lung bases, right greater than left, also appears generally stable. Dictated by: Dictated on workstation # [id number]
[2020-08-05] MEDS ORDERED: predniSONE 20 MG TAB PO ONE (08:45)
[2020-08-05] MEDS ORDERED: RIVAROXABAN 20 MG TABLET (XARELTO) PO SCH (09:00)
--- NOTE | 2020-08-05 09:41 | Cardiology Progress Note ---
Subjective Date Seen by Provider: Aug 05, 2020 Time Seen by Provider: 09:40 Subjective/Events-last exam patient was seen at bedside she was in a good spirit, feeling better today, less dyspneic Review of Systems General: No Chills, No Night Sweats, No Fatigue, No Malaise, No Appetite, No O ther HEENT: No Head Aches, No Visual Changes, No Eye Pain, No Ear Pain, No Dys phasia, No Sinus Congestion, No Post Nasal Drip, No Sore Throat, No Other Pulmonary: Dyspnea; No Cough, No Pleuritic Chest Pain, No Other Cardiovascular: No: Chest Pain, Palpitations, Orthopnea, Paroxysmal Noc. Dyspnea, Edema, Lt Headedness, Other Focused Exam Lactate Level 08/02/20 18:23: Lactic Acid Level 1.50 Time of Focused Exam: 20:15 Objective-Cardiology Exam Last Set of Vital Signs Vital Signs 08/04/20 08/05/20 08/05/20 08/05/20 08/05/20 08:50 06:00 06:42 06:51 08:04 Temp 36.4 Pulse 87 Resp 32 B/P (MAP) 176/78 (110) Pulse Ox 98 O2 Delivery High Flow N/C O2 Flow Rate 2.00 FiO2 20 Capillary Refill : Less Than 3 Seconds I&O Intake and Output 08/05/20 00:00 Intake Total 2165 ml Output Total 3325 ml Balance -1160 ml Intake Oral 1925 ml IV Total 240 ml Output Urine Total 3325 ml # Urine Diapers 3 General: Alert, Oriented X3, Cooperative HEENT: Atraumatic, PERRLA Neck: Supple, No JVD, No Thyromegaly Lungs: Clear to Auscultation, Normal Air Movement Heart: Regular Rate, Normal S1, Normal S2, Other (systolic murmur at the left sternal border) Abdomen: Normal Bowel Sounds, Soft, No Tenderness, No Hepatosplenomegaly, No Masses Extremities: No Clubbing, No Cyanosis, Normal Pulses, No Tenderness/Swelling, Other (pedal edema) Skin: No Rashes, No Breakdown, No Significant Lesion Neuro: Normal Gait, Normal Speech, Strength at 5/5 X4 Ext, Normal Tone, Sensation Intact Psych/Mental Status: Mental Status NL, Mood NL Results Lab Laboratory Tests 08/05/20 03:55 A/P-Cardiology Admission Diagnosis Acute respiratory failure Shortness of breath Atrial fibrillation Congestive heart failure Assessment/Plan pneumonia, status post acute respiratory insufficiency, improving, receiving antibiotic and managed by primary care team. Congestive heart failure, acute left ventricular diastolic dysfunction, echocardiogram done on August 04, 2020 showing normal left ventricular systolic function, ejection fraction 60 percent, mild mitral regurgitation, mild aortic stenosis, pulmonary artery pressure of 40-45 mmHg. continue on diuretics and monitor tolerance and response Pedal edema, improving, continue to monitor Sinus node dysfunction, history of permanent pacemaker, alternating between sinus rhythm and atrial paced rhythm. Continue to monitor Paroxysmal atrial fibrillation, has been maintained on oral anticoagulation as an outpatient. Restart Eliquis and monitor tolerance and response Hypertension, was hypotensive initially, blood pressure is better. Started on Lasix. Hyperlipidemia, monitor lipids CRUZ DANIELS MD Aug 05, 2020 09:41
[2020-08-05] MEDS ORDERED: CARVEDILOL 3.125 MG (COREG) TABLET PO ONE (10:00)
--- NOTE | 2020-08-05 10:14 | Physical Therapy Daily Note ---
PT Daily Note-Current Subjective Patient reports she is feeling better. Agrees to PT. Mental Status Patient Orientation: Normal For Age Attachments: Oxygen, [place] Catheter Transfers SCALE: Activities may be completed with or without assistive devices. 3-Xtupynlozy-dwszdtx completes the activity by him/herself with no assistance from a helper. 5-Set-up or Clean-up Assistance-helper sets up or cleans up; patient completes activity. Forest assists only prior to or following the activity. 4-Supervision or Touching Assistance-helper provides verbal cues and/or touching/steadying and/or contact guard assistance as patient completes acti vity. Assistance may be provided throughout the activity or intermittently. 3-Partial/Moderate Assistance-helper does LESS THAN HALF the effort. Forest lifts, holds or supports trunk or limbs, but provides less than half the effort. 2-Substantial/Maximal Assistance-helper does MORE THAN HALF the effort. Forest lifts or holds trunk or limbs and provides more than half the effort. 6-Subsyzeou-ezvnui does ALL the effort. Patient does none of the effort to complete the activity. Or, the assistance of 2 or more helpers is required for the patient to complete the activity. If activity was not attempted, code reason: 7-Patient Refused. 9-Not Applicable-not attempted and the patient did not perform the activity before the current illness, exacerbation or injury. 10-Not Attempted due to Environmental Limitations-(lack of equipment, weather restraints, etc.). 88-Not Attempted due to Medical Conditions or Safety Concerns. Lying to Sitting/Side of Bed(Q: 3 Sit to Stand (QC): 2 Chair/Ttx-pm-Txpde Xfer(QC): 2 continues to be retropulsive with tasks due to weakness Weight Bearing Right Lower Extremity: Right Weight Bearing/Tolerated Gait Training Does the Patient Walk?: No and Walking Goal IS indicated Distance: 5 small steps to chair Gait Assistive Device: FWW max assist due to retropulsion/shuffle gait sequence Exercises Supine Ex: Heel Slides, Hip abd/add Supine Reps: 12 Seated Therapy Exercises: Ankle pumps (left foot), Long arc quads, Hip flexion Seated Reps: 15 Assessment SAO2 decreases to 85% on O2 HF NC. Patient recovers quickly. Patient requires time to complete all functional tasks. Patient is up in recliner with bilateral LE elevated due to edema. PT Senior Care Goals Senior Care Goals PT 911 Emergency Dispatcher Goals Time Frame: Aug 16, 2020 Roll Left & Right (QC): 5 Sit to Lying (QC): 5 Lying-Sitting on Side/Bed(QC): 5 Sit to Stand (QC): 5 Chair/Lqt-gy-Zobpu Xfer(QC): 5 Toilet Transfer (QC): 5 Does the Patient Walk: Yes Walk 10 feet (QC): 5 Walk 50ft with 2 Turns (QC): 5 PT Plan Treatment/Plan Treatment Plan: Continue Plan of Care Treatment Plan: Bed Mobility, Education, Functional Activity Chrissy, Functional Strength, Gait, Safety, Therapeutic Exercise, Transfers Treatment Duration: Aug 16, 2020 Frequency: 6 times per week Estimated Hrs Per Day: .25 hour per day Patient and/or Family Agrees t: Yes Time/GCodes Time In: 821 Time Out: 845 Total Billed Treatment Time: 24 Total Billed Treatment 1 visit EX 13 min FA 11 min MRAYBEL JI PT Aug 05, 2020 10:13
[2020-08-05] MEDS ORDERED: dilTIAZem120 MG (CARDIZEM CD) CAP PO ONE (13:30)
--- NOTE | 2020-08-05 13:33 | Progress Note - Hospitalist ---
Subjective HPI/CC On Admission Date Seen by Provider: Aug 05, 2020 Time Seen by Provider: 10:10 Pt is an 89yoCF with a PMH of COPD on 2lpm baseline, pHTN, a-fib, right foot drop who presented to the ER due to shortness of breath via EMS. She reports that her symptoms started two days ago with shortness of breath and fever. She was hoping it would get better but it continued to worsen so she contacted her kids who called EMS. She denies cough, travel, sick contacts, loss of taste or smell. She lives home alone. She was vaccinated for COVID last week with her second dose due 08/26. She has also been vaccinated for flu. When EMS arrived she had a fever of 101.6 and required 6lpm to maintains oxygenation but ultimately required BiPAP due to work of breathing. She was admitted to the ICU due to severe sepsis from pneumonia. She reports feeling much better this morning and breathing is easier. Subjective/Events-last exam She is feeling better today. She is still weak. She denies shortness of breath. Focused Exam Lactate Level 08/02/20 18:23: Lactic Acid Level 1.50 Time of Focused Exam: 20:15 Objective Exam Vital Signs Vital Signs Date Time Temp Pulse Resp B/P (MAP) Pulse Ox O2 Delivery O2 Flow Rate FiO2 08/05/20 12:00 36.4 72 20 192/86 (121) 95 High Flow N/C 2.00 08/04/20 08:50 20 Capillary Refill : Less Than 3 Seconds General Appearance: No Apparent Distress, Chronically ill, Obese Respiratory: No Respiratory Distress, Wheezing Cardiovascular: Regular Rate, Rhythm, No Edema, No Murmur Gastrointestinal: Normal Bowel Sounds, Non Tender, Soft Extremity: Normal Inspection, Non Tender, Pedal Edema Neurologic/Psychiatric: Alert, Oriented x3, Normal Mood/Affect, Motor Weakness Skin: Normal Color, Warm/Dry Results/Procedures Lab Laboratory Tests 08/05/20 03:55 Patient resulted labs reviewed. Imaging: Reviewed Imaging Report Assessment/Plan Assessment and Plan Assess & Plan/Chief Complaint Acute on chronic respiratory failure with hypoxia PNA COPD exacerbation Continue Zosyn Continue steroids Continue pulmonary toilet Debility PT/OT IRF evaluation pAF HTN HFpEF Cardiology consulted, appreciate recs Resume diltiazem Continue Coreg and Xarelto Echo with grade I diastolic dysfunction HLD Obesity Glaucoma Overactive bladder No acute needs, resume home meds when med rec available DVT prophylaxis: already receiving therapeutic anticoagulation Severe sepsis, resolved Diagnosis/Problems Diagnosis/Problems (1) Acute on chronic respiratory failure with hypoxia Status: Acute (2) PNA (pneumonia) Status: Acute (3) COPD with exacerbation Status: Acute (4) Afib Status: Acute (5) HTN (hypertension) Status: Chronic (6) HLD (hyperlipidemia) Status: Chronic (7) Obesity Status: Chronic EFFIE PATEL MD Aug 05, 2020 13:33
[2020-08-05] MEDS: LATANOPROST 0.005% (XALATAN) OPHTH SOLN 2.5 ML OU SCH (21:08)
[2020-08-06] MEDS: RT-ALBUTEROL INHALER HFA (VENTOLIN HFA) 18 GM IH SCH ×2 (02:24→07:33)
[2020-08-06] MEDS: PIPERACILLIN/TAZOBACTAM (BULK) 4.5 GM in NS (IVPB) 100 ML IV SCH (05:05)
[2020-08-06] MEDS: CATHETER FLUSH 10 ML SYR IV SCH (05:05)
[2020-08-06 06:07] LABS: BASOPHILS % (AUTO) 0 % (0-10); EOSINOPHILS % (AUTO) 0 % (0-10); HEMATOCRIT 31 % (35-52); HEMOGLOBIN 9.9 g/dL (11.5-16.0); LYMPHOCYTES % (AUTO) 8 % (12-44); MEAN CORPUSCULAR HEMOGLOBIN 29 pg (25-34); MEAN CORPUSCULAR HGB CONC 33 g/dL (32-36); MEAN CORPUSCULAR VOLUME 89 fL (80-99); MEAN PLATELET VOLUME 9.8 fL (9.0-12.2); MONOCYTES # (AUTO) 0.8 10^3/uL (0.0-1.0); MONOCYTES % (AUTO) 6 % (0-12); NEUTROPHILS # (AUTO) 10.2 10^3/uL (1.8-7.8); NEUTROPHILS % (AUTO) 84 % (42-75); PLATELET COUNT 386 10^3/uL (130-400); WHITE BLOOD COUNT 12.2 10^3/uL (4.3-11.0)
[2020-08-06] MEDS: FUROSEMIDE 40 MG/4 ML INJ (LASIX) IVP SCH (06:09)
[2020-08-06 06:32] LABS: BUN/CREATININE RATIO 30; CALCIUM 7.8 MG/DL (8.5-10.1); CARBON DIOXIDE 26 MMOL/L (21-32); CHLORIDE 100 MMOL/L (98-107); CREATININE SERUM 1.15 MG/DL (0.60-1.30); GFR ESTIMATED 44; MAGNESIUM 2.5 MG/DL (1.6-2.4); PHOSPHORUS 3.4 MG/DL (2.3-4.7); POTASSIUM 3.8 MMOL/L (3.6-5.0); SODIUM 137 MMOL/L (135-145)
[2020-08-06] MEDS: POTASSIUM CL 10MEQ/50ML IVPB 50 ML IV SCH (06:38)
[2020-08-06] MEDS: MAGNESIUM 1 GM/100 ML IVPB 100 ML IV SCH (06:39)
[2020-08-06] MEDS: KCL 20 MEQ TAB (K-DUR) PO SCH (06:39)
[2020-08-06 06:43] LABS: GLUCOSE 118 MG/DL (70-105)
[2020-08-06] MEDS ORDERED: predniSONE 20 MG TAB PO SCH (07:00)
[2020-08-06] MEDS: CARVEDILOL 3.125 MG (COREG) TABLET PO SCH (08:40)
[2020-08-06] MEDS: RIVAROXABAN 15 MG TABLET (XARELTO) PO SCH (08:40)
[2020-08-06] MEDS: TIMOLOL MALEATE 0.5% 5 ML (TIMOPTIC) BTL OU SCH (08:41)
[2020-08-06] MEDS ORDERED: CARVEDILOL 6.25 MG (COREG) TAB PO ONE (09:00)
[2020-08-06] MEDS ORDERED: dilTIAZem120 MG (CARDIZEM CD) CAP PO SCH (09:00)
[2020-08-06 10:54] VITALS: BP 177/90
[2020-08-06] MEDS ORDERED: LATA2.5D19 OU (15:21)
== END 2020-08-06 10:57 | DRG 871 ==
LOC: EDUNIT# 18:09 → ER 18:12 → ICU 19:47 → 4TH 08-05 10:25
PROVIDERS: ADMIT Family Medicine; ATTEND Family Medicine
PROC: 5A09357 Assistance with Respiratory Ventilation, Less than 24 Consecutive Hours, Continuous Positive Airway Pressure (ICD-10-PCS; principal; 2020-08-03)
DX: A41.9 Sepsis, unspecified organism (principal); J18.9 Pneumonia, unspecified organism; J96.21 Acute and chronic respiratory failure with hypoxia; I50.31 Acute diastolic (congestive) heart failure; J44.0 Chronic obstructive pulmonary disease with (acute) lower respiratory infection; J44.1 Chronic obstructive pulmonary disease with (acute) exacerbation; Z68.41 Body mass index [BMI] 40.0-44.9, adult; Z20.822 Contact with and (suspected) exposure to COVID-19; I27.20 Pulmonary hypertension, unspecified; Z88.2 Allergy status to sulfonamides; I48.0 Paroxysmal atrial fibrillation; E78.00 Pure hypercholesterolemia, unspecified; M19.90 Unspecified osteoarthritis, unspecified site; G62.9 Polyneuropathy, unspecified; H40.9 Unspecified glaucoma; R65.20 Severe sepsis without septic shock; E66.9 Obesity, unspecified; N32.81 Overactive bladder; M21.371 Foot drop, right foot; I11.0 Hypertensive heart disease with heart failure; Z95.0 Presence of cardiac pacemaker
CPT/HCPCS: 36415; 51702; 71045; 80048; 80053; 80061; 81000; 83605; 83615; 83735; 83874; 83880; 84100; 84145; 84443; 84484; 85007; 85025; 85027; 85610; 85730; 86141; 87040; 87077; 87081; 87088; 87186; 87635; 87804; 93005; 93041; 93306; 94640

== ENCOUNTER 2020-08-06 09:11 | Inpatient (IN) | payer MEDICARE ==
[~2020-08-06] VITALS: Ht 152.4 cm; Wt 100.0 kg
[~2020-08-06 09:11] MED LIST changes: +ASPI-999 PO; +DILT-27 PO; +ESTR0.5T3 PO; +HYDR-3924 PO; +NEO/3.5O18 OP; +RIVA20TA PO
[2020-08-06] MEDS ORDERED: CALCIUM CARBONATE 500 MG (TUMS) TAB.CHEW PO PRN (09:30)
[2020-08-06] MEDS ORDERED: LOPERAMIDE 2 MG (IMODIUM) TABLET PO PRN (09:30)
[2020-08-06] MEDS ORDERED: ONDANSETRON 4 MG (ZOFRAN) ORAL DISSOLVE TAB PO PRN (09:30)
[2020-08-06] MEDS ORDERED: diphenhydrAMINE 25 MG TAB (BENADRYL) PO PRN (09:30)
[2020-08-06] MEDS ORDERED: guaiFENesin/CODEINE (ROBITUSSIN AC) 10ML UDC PO PRN (09:30)
[2020-08-06] MEDS ORDERED: LACTULOSE SYRUP 10GM/15ML (ENULOSE) 30ML UDC PO PRN (09:30)
[2020-08-06] MEDS ORDERED: FLEET ENEMA ADULT 1 EA BTL PR PRN (09:30)
[2020-08-06] MEDS ORDERED: DOCUSATE SODIUM 100 MG (COLACE) CAP PO PRN (09:30)
[2020-08-06] MEDS ORDERED: BISACODYL 10 MG SUPP (DULCOLAX) PR PRN (09:30)
[2020-08-06] MEDS ORDERED: ALPRAZolam 0.25 MG (XANAX) TAB PO PRN (09:30)
--- NOTE | 2020-08-06 11:39 | PM&R Post Admission Assessment ---
PM&R HP Date of Visit: Aug 06, 2020 Time of Visit: 11:30 History of Present Illness CC: COPD myopathy HPI: This is an 89yoWF clinic patient of Dr Ferreira, Dr Fregoso, Nephrology in [facility], Dr Montiel who presents to the IRF in need of recovery following an ICU course due to sepsis from PNA and UTI. Patient had recovered nicely in IRF in 2019 and has not had any major issues since that time. She does have a loop recorder in place performed by Dr Fregoso in the past. I reviewed home meds. Patient uses a walker at home. BM+ and catheter DC and voiding well. Reviewed consultants notes. PLOF was ability to perform own ADL's and ambulate with walker. O2 dependence is chronic. Past Dfwplpv-Cqefsi-Cdamou Hx Past Med/Social Hx: Reviewed Nursing Past Med/Soc Hx, Reviewed and Corrections made Patient Social History Marrital Status: single Employed/Student: retired Alcohol Use: Denies Use Smoking Status: Never a Smoker Recent Hopitalizations: Yes ([facility]-Pneumonia, Sepsis, UTI (06/2019) ) Immunizations Up To Date Tetanus Booster (TDap): More than 5yrs Pediatric: Yes Date of Influenza Vaccine: Feb 21, 2020 Seasonal Allergies Seasonal Allergies: No Past Medical History Surgeries: Appendectomy, Eye Surgery, Gallbladder, Hysterectomy, Pacemaker, Tonsillectomy, Urinary Diversion Respiratory: COPD, Pneumonia Currently Using CPAP: No Currently Using BIPAP: No Cardiac: Atrial Fibrillation, High Cholesterol, Hypertension, Irregular Heartbeat Neurological: 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 Sexually Transmitted Disease: No HIV/AIDS: No Female Reproductive Disorders: Denies Genitourinary: Bladder Infection Musculoskeletal: Arthritis HEENT: Glaucoma Loss of Vision: Bilateral Hearing Impairment: Denies Cancer: Skin Did You Recieve Any Treatments: Yes What Type of Treatment Did You: Surgical Intervention History of Blood Disorders: No Adverse Reaction to Blood Duke: No Family History Alcoholism G8 BROTHER G8 BROTHER Asthma G8 BROTHER G8 BROTHER G8 BROTHER G8 BROTHER Cardiovascular disease 19 MOTHER G8 BROTHER G8 SISTER Cataracts 19 MOTHER G8 BROTHER G8 BROTHER G8 BROTHER G8 BROTHER Completed stroke 19 MOTHER G8 BROTHER Congenital disease Congenital heart disease G8 BROTHER Coronary thrombosis 19 MOTHER Deafness or hearing loss 19 FATHER G8 BROTHER Dementia Diabetes mellitus 19 MOTHER G8 BROTHER G8 BROTHER Drug abuse G8 BROTHER Glaucoma 19 FATHER G8 BROTHER G8 BROTHER Hypercholesterolemia 19 MOTHER G8 BROTHER G8 BROTHER Hypertension 19 MOTHER G8 BROTHER G8 BROTHER Myocardial infarction 19 MOTHER G8 BROTHER G8 BROTHER Thyroid disease G8 BROTHER PM&R Allergy/Meds/Data Review Allergies Coded Allergies: Sulfa (Sulfonamide Antibiotics) (Verified Allergy, Intermediate, Rash, 07/02/19) acetaminophen (Verified Allergy, Intermediate, Rash, 07/02/19) Home Medications Scheduled Aspirin (Aspirin), 81 MG PO DAILY, (Reported) Calcium Carbonate/Vitamin D3 (Calcium 600 + Vit D Caplet), 2 EACH PO DAILY, (Reported) Carvedilol (Carvedilol), 3.125 MG PO 999,1999, (Reported) Cranberry Fruit (Cranberry), 800 MG PO HS, (Reported) Diltiazem HCl (Diltiazem 24Hr ER), 120 MG PO DAILY, (Reported) Estradiol (Estrace Tablet), 0.5 MG PO , (Reported) Furosemide (Furosemide), 40 MG PO DAILY, (Reported) Hydralazine HCl (Hydralazine HCl), 50 MG PO TID, (Reported) Latanoprost/Pf (Latanoprost 0.005% Eye Drop), 1 DROP OU HS, (Reported) Multivitamin (One-Daily Multi-Vitamin), 1 EACH PO DAILY, (Reported) Oxybutynin Chloride (Oxybutynin Chloride), 5 MG PO BID, (Reported) Potassium Gluconate (Potassium), 99 MG PO DAILY, (Reported) Pumpkin Seed Extract/Soy Germ (Azo Bladder Control Capsule), 300 MG PO HS, (Reported) Rivaroxaban (Xarelto), 20 MG PO DAILY, (Reported) Timolol Maleate (Timolol Maleate 0.5%), 1 DROP OU DAILY, (Reported) Scheduled PRN Kelvin/Polymyx B Sulf/Dexameth (Yanuiu-Erwct-Qzqurbm Eye Ointm), 1 APPLIC OP TID PRN for STYE, (Reported) Discontinued Medications Apixaban (Eliquis), 5 MG PO BID, (Reported) Discontinued Reason: No Longer Taking Cefuroxime Axetil (Cefuroxime), 500 MG PO BID Discontinued Reason: No Longer Taking Diltiazem HCl (Diltiazem ER), 120 MG PO DAILY, (Reported) Discontinued Reason: Duplicate Order Hydrochlorothiazide (Hydrochlorothiazide), 25 MG PO DAILY, (Reported) Discontinued Reason: No Longer Taking Latanoprost (Xalatan), 1 DROP OU HS, (Reported) Discontinued Reason: Duplicate Order Losartan Potassium (Losartan Potassium), 100 MG PO DAILY, (Reported) Discontinued Reason: No Longer Taking Naproxen Sodium (Aleve), 220 MG PO Q8H PRN for PAIN-MILD (1-4), (Reported) Discontinued Reason: No Longer Taking Current Medications Current Medications Reviewed Review of Systems Constitutional: see HPI, malaise, weakness EENTM: no symptoms reported Respiratory: dyspnea on exertion Cardiovascular: no symptoms reported Gastrointestinal: no symptoms reported Genitourinary: no symptoms reported Musculoskeletal: back pain, joint pain Skin: no symptoms reported Psychiatric/Neurological: Depressed All Other Systems Reviewed Negative Unless Noted: Yes Physical Exam Physical Exam Vital Signs Capillary Refill : Height, Weight, BMI Height: '" Weight: lbs. oz. kg; 41.07 BMI Method: General Appearance: No Apparent Distress, WD/WN, Chronically ill, Obese Eyes: Bilateral Eye Normal Inspection, Bilateral Eye PERRL HEENT: PERRL/EOMI, Normal ENT Inspection, Pharynx Normal Neck: Full Range of Motion, Normal Inspection, Non Tender, Supple, Carotid Bruit Respiratory: Chest Non Tender, Lungs Clear, No Accessory Muscle Use, No Respiratory Distress, Decreased Breath Sounds Cardiovascular: No Edema, No Gallop, No JVD, No Murmur, Normal Peripheral Pulses, Irregularly Irregular Gastrointestinal: Normal Bowel Sounds, No Organomegaly, No Pulsatile Mass, Non Tender, Soft Back: Normal Inspection, No CVA Tenderness, No Vertebral Tenderness Extremity: Normal Capillary Refill, Normal Inspection, Normal Range of Motion, Non Tender, No Calf Tenderness, No Pedal Edema Neurologic/Psychiatric: Alert, Oriented x3, No Motor/Sensory Deficits, Normal Mood/Affect, Abnormal Gait, Motor Weakness (generalized lower extremities 3/5) Skin: Normal Color, Warm/Dry Lymphatic: No Adenopathy PM&R Medical Assessment & Plan REHAB/MEDICAL ASSESSMENT AND PLAN: REHAB 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 The comorbidities that impact the patients function and/or functional outcome by: advanced age, fall risk, O2 dependence, cardiac dysfunction, current infection REHAB PLAN: The patient is being admitted to our comprehensive inpatient rehabilitation facility and can tolerate the intensity of service consisting of at least: 180 minutes of therapy a day, 5 out of 7 days a week Rehab treatment will consist of: PT OT will help patient regain function and strength back to baseline with use of AD in order to perform own ADL's and return to independent living The patient/family has a good understanding of our discharge process and will benefit from an interdisciplinary inpatient rehabilitation program. The patient has potential to make improvement and is in need of at least two of the following multidisciplinary therapies including but not limited to physical, occupational, speech, and prosthetics and orthotics. Additionally the patient will need services from respiratory, nutritional services, wound care, psychology, etc. (Customize this to each patient). Given the patients complex condition and risk of further medical complications, rehabilitation services cannot be safely or effectively provided at a lower level of care such as a intermediate facility. BARRIERS TO DISCHARGE: Advanced age with O2 dependence ESTIMATED LOS: 10 days DISPOSITION: Home RELEVANT CHANGES SINCE PREADMISSION SCREENING: I have compared the patients medical and functional status at the time of the preadmission screening and there are: no changes PROGNOSIS: Fair REHABILITATION GOALS: 1. PT OT will help patient regain function and strength back to baseline with use of AD in order to perform own ADL's and return to independent living All the above goals were reviewed with the patient and he/she is in agreement. By signing this document, I acknowledge that I have personally performed a full physical examination on this patient within 24 hours of admission to this inpatient rehabilitation facility and have determined the patient to be able to tolerate the above course of treatment at an intensive level for a reasonable pe riod of time. I will be completing a detailed individualized Plan of Care for this patient by day #4 of the patients stay based upon the Preadmission Screen, the Post-Admission Evaluation, and the therapy evaluations. Admission Dx/Comorbidities: (1) Myopathy ICD Codes: G72.9 - Myopathy, unspecified (2) COPD (chronic obstructive pulmonary disease) ICD Codes: J44.9 - Chronic obstructive pulmonary disease, unspecified (3) Afib Status: Acute ICD Codes: I48.91 - Unspecified atrial fibrillation (4) HLD (hyperlipidemia) Status: Chronic ICD Codes: E78.5 - Hyperlipidemia, unspecified (5) HTN (hypertension) Status: Chronic ICD Codes: I10 - Essential (primary) hypertension (6) Obesity Status: Chronic ICD Codes: E66.9 - Obesity, unspecified (7) Acute on chronic respiratory failure with hypoxia Status: Acute ICD Codes: J96.21 - Acute and chronic respiratory failure with hypoxia (8) PNA (pneumonia) Status: Acute ICD Codes: J18.9 - Pneumonia, unspecified organism (9) Foot drop, right ICD Codes: M21.371 - Foot drop, right foot (10) Essential (primary) hypertension ICD Codes: I10 - Essential (primary) hypertension (11) Edema ICD Codes: R60.9 - Edema, unspecified (12) Lower lobe pneumonia Status: Acute ICD Codes: J18.9 - Pneumonia, unspecified organism (13) Oxygen dependent ICD Codes: Z99.81 - Dependence on supplemental oxygen (14) Overactive bladder ICD Codes: N32.81 - Overactive bladder (15) Glaucoma ICD Codes: H40.9 - Unspecified glaucoma (16) Debility ICD Codes: R53.81 - Other malaise (17) Hypoxemia ICD Codes: R09.02 - Hypoxemia Assessment/Plan Assessment and Plan Assess & Plan/Chief Complaint Assessment: COPD myopathy Acute on chronic respiratory failure Chronic O2 dependence Debility following PNA and UTI PHTN Edema chronic Chronic right foot drop uses AFO Edema chronic HTN OAB Plan: Monitor BP OAC Appreciate Cardiology IRF protocol RIKA BERUMEN DO Aug 06, 2020 11:39
[2020-08-06] MEDS ORDERED: RT-ALBUTEROL INHALER HFA (VENTOLIN HFA) 18 GM IH PRN (11:45)
[2020-08-06] MEDS ORDERED: ONDANSETRON 4 MG/2 ML (SDV) Z0FRAN IV PRN (11:45)
--- NOTE | 2020-08-06 11:48 | Occupational Therapy Eval ---
OT Evaluation-General/PLF Medical Diagnosis Admission Date Aug 06, 2020 at 10:30 Medical Diagnosis: COPD Myopathy Onset Date: Aug 03, 2020 Therapy Diagnosis Therapy Diagnosis: weakness, decreased ADL Status Precautions Precautions/Isolations: Fall Prevention, Standard Precautions Referral Physician: Sonido Wilson Reason: Evaluation/Treatment Medical History Pertinent Medical History: Atrial Fib, CAD, COPD, HTN, Neuropathy Additional Medical History R foot drop since 1972, arthritis, glaucoma, skin cancer Current History 08/03/20 ED due to SOB, admitted to ICU due to sepsis and pneumonia. Pt transferr ed to ARU 08/06/20 for skilled therapies and continued medication management. Reviewed History: Yes Social History Home: Single Level Current Living Status: Alone ADL-Prior Level of Function SCALE: Activities may be completed with or without assistive devices. 6-Vgslozwqqy-towoval completes the activity by him/herself with no assistance from a helper. 5-Set-up or Clean-up Assistance-helper sets up or cleans up; patient completes activity. [place] assists only prior to or following the activity. 4-Supervision or Touching Assistance-helper provides verbal cues and/or touching/steadying and/or contact guard assistance as patient completes activity . Assistance may be provided throughout the activity or intermittently. 3-Partial/Moderate Assistance-helper does LESS THAN HALF the effort. [place] lifts, holds or supports trunk or limbs, but provides less than half the effort. 2-Substantial/Maximal Assistance-helper does MORE THAN HALF the effort. [place] lifts or holds trunk or limbs and provides more than half the effort. 4-Gjjmxilff-haqktc does ALL the effort. Patient does none of the effort to complete the activity. Or, the assistance of 2 or more helpers is required for the patient to complete the activity. If activity was not attempted, code reason: 7-Patient Refused. 9-Not Applicable-not attempted and the patient did not perform the activity before the current illness, exacerbation or injury. 10-Not Attempted due to Environmental Limitations-(lack of equipment, weather restraints, etc.). 88-Not Attempted due to Medical Conditions or Safety Concerns. ADL PLOF Comments Pt indicates she lives alone, able to cook and dress herself. She typically sleeps in the recliner. Pt's niece assist pt into/out of bathtub and with washing feet. After shower, pt's niece wraps pt's LE with alan wraps, also assistance with laundry Self Care: Needed Some Help Functional Cognition: Independent DME/Equipment: Bath Chair, Tub/Shower DME/Equipment Comments walker OT Current Status Subjective Pt agreeable to OT evaluation, then OT/PT cotreat. Pt does not verbalize any pain with tx. Mental Status/Objective Patient Orientation: Person, Place, Time, Situation Attachments: Oxygen Current Glasses/Contacts: Yes Hearing Aids: No Dentures/Partials: Yes Hand Dominance: Right Upper Extremity ROM WFL, BUE shoulder flexion to approx 140 degrees Upper Extremity Coordination WFL Upper Extremity Sensation WFL, Pt reports numbness in LUE along 4th and 5th digit. Upper Extremity Strength grossly 3+/5 BUEs ADL-Treatment Eating (QC): 5 (Pt reports being able to cut food, and use utensils. Assist to open containers.) Oral Hygiene (QC): 5 (set up at tray table) Shower/Bathe Self (QC): 3 (Pt required assistance washing BLEs lower legs/feet, and assist washing buttocks. Pt able to wash other parts seated in recliner.) Upper Body Dressing (QC): 7 Lower Body Dressing (QC): 7 On/Off Footwear (QC): 1 (Assist doffing/donning socks and with alan wraps.) Toileting Hygiene (QC): 2 (Pt able to complete hygiene, assist for thoroughness and fatigue) Other Treatments OT/PT cotreat due to skill of 2 clinicians required which a cardiac rehabilitation specialist could not perform due to pt's limitations in strength, activity tolerance, mobility, to decrease fall risk, and to coordinate UE/LEs with tasks. OT focused on ADLs, UE placement, cues for sequencing and safety while PT focused on LE placement, gross overall movement, and transfers/mobility. Pt completed toileting, then used FWW to transfer to EOB and supine. Pt took a rest break, then transferred to EOB, then to recliner. Pt completed oral care at tray table, then participated in sponge bath, taking frequent rest breaks as needed. Post tx, pt seated in recliner, call light in reach and all needs met. Education OT Patient Education: Correct positioning, Modified ADL techniques, Progress toward Goal/Update tx plan, Purpose of tx/functional activities, Rehab process Teaching Recipient: Patient Teaching Methods: Discussion Response to Teaching: Verbalize Understanding OT Short Term Goals Short Term Goals Time Frame: Aug 15, 2020 Toileting hygiene: 4 Upper body dressin Lower body dressin Putting on/taking off footwear: 5 OT Prison Goals Grades 7 8 Tutor Goals Time Frame: Aug 29, 2020 Eating (QC): 6 Oral Hygiene (QC): 6 Toileting Hygiene (QC): 6 Shower/Bathe Self (QC): 4 Upper Body Dressing (QC): 6 Lower Body Dressing (QC): 6 On/Off Footwear (QC): 6 Additional Goals: 1-Demonstrate ADL Tasks, 2-Verbalize Understanding, 3-ImproveStrength/Chrissy 1=Demonstrate adherence to instructed precautions during ADL tasks. 2=Patient will verbalize/demonstrate understanding of assistive devices/modifications for ADL. 3=Patient will improve strength/tolerance for activity to enable patient to perf orm ADL's. OT Education/Plan Problem List/Assessment Assessment: Decreased Activ Tolerance, Decreased UE Strength, Impaired Funct Balance, Impaired I ADL's, Impaired Self-Care Skills Discharge Recommendations Plan/Recommendations: Continue POC Treatment Plan/Plan of Care Patient would benefit from OT for education, treatment and training to promote independence in ADL's, mobility, safety and/or upper extremity function for ADL's. Plan of Care: ADL Retraining, Functional Mobility, Group Exercise/Act as Ind, UE Funct Exercise/Act Treatment Duration: Aug 29, 2020 Frequency: At least 5 of 7 days/Wk (IRF) Estimated Hrs Per Day: 1.5 hours per day Rehab Potential: Fair Time/GCodes Start Time: 10:45 Stop Time: 11:45 Total Time Billed (hr/min): 60 Billed Treatment Time 9693-4050 OT evaluation, [id number] OT/PT cotreat, [id number] OT tx, [id number] OT/PT cotreat, [id number] OT tx 1, EVM (10'), ADL 3 (50') PAWEL CHUNG OT Aug 06, 2020 11:48
--- NOTE | 2020-08-06 12:25 | Progress Note - Cardiology ---
Cardiology SOAP Progress Note Subjective: No cp or palp or syncope Gen malaise Mild shortness of breath with exertion No n/v/d Chronic, bilateral leg swelling Objective: Constitutional: AAO x 3, well-developed, well-nourished Respiratory: No accessory muscle use; other (good, bilateral air entry) Cardiovascular: regular rate-rhythm, S1 and S2, systolic murmur (soft DAPHNE at card base) Gastrointestional: No tender; soft; No guarding, No rebound; audible bowel sounds Extremities: swelling (mod, bilateral, pitting leg edema); No clubbing, No cyanosis Neurologic/Psychiatric: oriented x 3, other (moves all limbs equally) A/P: Assessment: Ac resp insuff due to pneumonia, managed by primary care team. Acute diastolic CHF, currently clinically compensated - echocardiogram done on August 04, 2020 showing normal left ventricular systolic function, ejection fraction 60 percent, mild mitral regurgitation, mild aortic stenosis, pulmonary artery pressure of 40-45 mmHg Chronic, bilateral leg edema, likely due to venous insuff Sinus node dysfunction, history of permanent pacemaker, alternating between sinus rhythm and atrial paced rhythm Paroxysmal atrial fibrillation, on rivaroxaban CKD-3 Hypertension, improved Hyperlipidemia Plan: * Continue dilt and bb for rate control * Continue rivaroxaban (adjusted to age and renal function) * Monitor labs BRIE LLANOS MD FACP FAC CCDS Aug 06, 2020 12:25
--- NOTE | 2020-08-06 13:16 | Physical Therapy Evaluation ---
PT Evaluation-General Medical Diagnosis Admission Date Aug 06, 2020 at 10:30 Medical Diagnosis: COPD Myopathy Onset Date: Aug 03, 2020 Therapy Diagnosis Therapy Diagnosis: weakness; abn gait Precautions Precautions/Isolations: Fall Prevention, Standard Precautions Referral Physician: Sonido Reason for Referral: Evaluation/Treatment Medical History Pertinent Medical History: Atrial Fib, Arthritis, CAD, COPD, HTN, Neuropathy, OA Additional Medical History right foot drop, pacemaker Current History Pt admitted to [facility] on 08/02/2020 due to progressive SOA. Found to have sepsis related to pneumonia. Pt transferred to this unit for continued medical managment and skilled therapy services. Reviewed History: Yes Social History Home: Single Level Current Living Status: Alone (Good family support) Entry Into Home: Stairs With Railing PT Steps Into Home: 3 Prior Prior Level of Function SCALE: Activities may be completed with or without assistive devices. 5-Arzdrzhlvw-dqpbvyy completes the activity by him/herself with no assistance from a helper. 5-Set-up or Clean-up Assistance-helper sets up or cleans up; patient completes activity. [place] assists only prior to or following the activity. 4-Supervision or Touching Assistance-helper provides verbal cues and/or touching/steadying and/or contact guard assistance as patient completes activity. Assistance may be provided throughout the activity or intermittently. 3-Partial/Moderate Assistance-helper does LESS THAN HALF the effort. [place] lifts, holds or supports trunk or limbs, but provides less than half the effort. 2-Substantial/Maximal Assistance-helper does MORE THAN HALF the effort. [place] lifts or holds trunk or limbs and provides more than half the effort. 6-Ftpkfqcru-ugovqd does ALL the effort. Patient does none of the effort to complete the activity. Or, the assistance of 2 or more helpers is required for the patient to complete the activity. If activity was not attempted, code reason: 7-Patient Refused. 9-Not Applicable-not attempted and the patient did not perform the activity before the current illness, exacerbation or injury. 10-Not Attempted due to Environmental Limitations-(lack of equipment, weather restraints, etc.). 88-Not Attempted due to Medical Conditions or Safety Concerns. Bed Mobility: 6 Transfers (B,C,W/C): 6 Gait: 6 Stairs: 6 Wheelchair Mobility: 10 Indoor Mobility (Ambulation): Independent Stairs: Independent Prior Devices Use: Walker Pt was mod indep with in home and short community distances at [facility] PT Evaluation-Current Subjective Agreeable to PT evaluaiton. Denies pain but reports she does feel weak. Reports she feels a bit SOA. Pain Numeric Pain Scale: 0-No Pain Location: No Pain Reported Pt/Family Goals Her goal is to return home at [facility] Objective Patient Orientation: Person, Place, Time, Situation Attachments: Oxygen (in situ during and post treatment. ) ROM/Strength ROM Lower Extremities WNL Strength Lower Extremities B LE strength is grossly 3/5 with right DF 0/5. She has an AFO but her foot is too swollen to wear it. Integumentary/Posture Integumentary Refer to nursing notes for full assessment. Bowel Incontinence: No Bladder Incontinence: Yes Posture rounded shoulders and forward head. Sensory Hand Dominance: Right Sensation Right Lower Extremit: Intact Sensation Left Lower Extremity: Intact Transfers Roll Left & Right (QC): 3 Sit to Lying (QC): 3 Lying to Sitting/Side of Bed(Q: 3 Sit to Stand (QC): 2 Chair/Osc-br-Gtcvu Xfer(QC): 3 Toilet Transfer (QC): 2 (mod assist to lower to the toilet. ) Car Transfer (QC): 3 Gait Does the Patient Walk?: Yes Mode of Locomotion: Walk Anticipated Mode of Locomotion: Walk Walk 10 feet (QC): 3 Walk 50 ft with 2 Turns(QC): 3 Walk 150 ft (QC): 88 Walking 10ft/uneven surface-QC: 3 Gait Assistive Device: FWW Comments/Gait Description Pt able to walk 10 ft x 3 and 50 ft x 1 with FWW with min assist for balance. Wheelchair Training Does the Pt Use a Wheelchair?: No Wheel 50 ft with 2 turns (QC): 9 Wheel 150 ft (QC): 9 Stairs 1 Step (curb) (QC): 3 4 Steps (QC): 88 12 Steps (QC): 88 Balance Sitting Static: Normal Sitting Dynamic: Normal Standing Static: Fair Standing Dynamic: Fair Picking up an Object (QC): 88 Treatment Functional transfer training and mobility within her room and bathroom to complete ADL tasks. Co treat with OT part of treatment as the skill of 2 clinicians indicated for effective and safe completion of task. Pt requires heavy assist with transfers and assist to remain standing as OT addressed pericare, bathing and toileting tasks. OT focused on use and placment of UE as PT addressed the gross motor tasks and safety with funcitonal seated and standing dynamic balance. Skilled cues provided for sequencing and task initiation. Also completed functional gait training with focus on use and safety of FWW. Cues for foot clearance right with concern for foot drop right. Pt walked an additional distance of 75 ft x 2 and 10 ft x 2 with FWW with min to CGA. Assessment/Needs Post acute hospital stay with noted respiratory distress and decreased functional activity tolerance. Pt demonstrates functional strength and balance deficits paired with decreased functional activity tolerance that limits her ability to complete bed mobility, transfers and gait without significant assist. She is unable to care for herself or live alone as she did prior to the hospital stay. She will benefit from skilled PT to address these deficits to allow her to return to her PLOF. She is motivated and cooperative and has excellent family support. As the course of the treatment session progressed, she did make functional gains. She has good carryover and is able to learn new tasks. Rehab Potential: Good PT Short Term Goals Short Term Goals Time Frame: Aug 20, 2020 Lying to sitting on side of be: 4 Sit to stand: 4 Chair/lml-rm-uncjx transfer: 4 Walk 150 feet: 4 PT Senior Living Goals Senior Living Goals PT Senior Living Goals Time Frame: Aug 27, 2020 Roll Left & Right (QC): 6 Sit to Lying (QC): 6 Lying-Sitting on Side/Bed(QC): 6 Sit to Stand (QC): 6 Chair/Diq-hz-Ilzar Xfer(QC): 6 Toilet Transfer (QC): 6 Car Transfer (QC): 5 Does the Patient Walk: Yes Walk 10 feet (QC): 6 Walk 50ft with 2 Turns (QC): 6 Walk 150 ft (QC): 6 Walking 10ft on Uneven Surface: 4 1 Step (curb) (QC): 4 4 Steps (QC): 4 12 Steps (QC): 9 Picking up an Object (QC): 9 Wheel 50 feet with 2 turns (QC: 9 Wheel 150 feet: 9 PT Plan Problem List Problem List: Activity Tolerance, Functional Strength, Safety, Balance, Gait, Transfer, Bed Mobility Treatment/Plan Treatment Plan: Continue Plan of Care Treatment Plan: Bed Mobility, Education, Functional Activity Chrissy, Functional Strength, Group Therapy, Gait, Safety, Therapeutic Exercise, Transfers Treatment Duration: Aug 27, 2020 Frequency: At least 5 of 7 days/Wk (IRF) Estimated Hrs Per Day: 1.5 hours per day Patient and/or Family Agrees t: Yes Safety Risks/Education Patient Education: Gait Training, Transfer Techniques, Safety Issues Teaching Recipient: Patient Teaching Methods: Discussion Response to Teaching: Reinforcement Needed Discharge Recommendations Therapy Discharge Recommendati: Post Acute PT ([facility]HC PT) Time/GCodes Time In: 1030 Time Out: 1045 ([id number] co treat with [id number] co treat with OT) Total Billed Treatment Time: 40 Total Billed Treatment visit x 2 EVM 15 FA 25 FLORENCIO HAMM PT Aug 06, 2020 13:15
[2020-08-06] MEDS: PIPERACILLIN/TAZOBACTAM (BULK) 4.5 GM in NS (IVPB) 100 ML IV SCH ×2 (13:19→19:38)
--- NOTE | 2020-08-06 13:19 | Occupational Ther Daily Note ---
OT Current Status-Daily Note Subjective Pt alert, sitting in recliner with feet elevated. Pt agrees to therapy. No c/o pain. Mental Status/Objective Patient Orientation: Person, Place, Time, Situation Attachments: IV, Oxygen (3L) ADL-Treatment Therapy Code Descriptions/Definitions Functional [place] Measure: 0=Not Assessed/NA 4=Minimal Assistance 1=Total Assistance 5=Supervision or Setup 2=Maximal Assistance 6=Modified [place] 3=Moderate Assistance 7=Complete IndependenceSCALE: Activities may be completed with or without assistive devices. 5-Nzwmqsrnwc-pdnqywx completes the activity by him/herself with no assistance from a helper. 5-Set-up or Clean-up Assistance-helper sets up or cleans up; patient completes activity. [place] assists only prior to or following the activity. 4-Supervision or Touching Assistance-helper provides verbal cues and/or touching/steadying and/or contact guard assistance as patient completes acti vity. Assistance may be provided throughout the activity or intermittently. 3-Partial/Moderate Assistance-helper does LESS THAN HALF the effort. [place] lifts, holds or supports trunk or limbs, but provides less than half the effort. 2-Substantial/Maximal Assistance-helper does MORE THAN HALF the effort. [place] lifts or holds trunk or limbs and provides more than half the effort. 5-Wtmgtliyv-sjvmcc does ALL the effort. Patient does none of the effort to complete the activity. Or, the assistance of 2 or more helpers is required for the patient to complete the activity. If activity was not attempted, code reason: 7-Patient Refused. 9-Not Applicable-not attempted and the patient did not perform the activity before the current illness, exacerbation or injury. 10-Not Attempted due to Environmental Limitations-(lack of equipment, weather restraints, etc.). 88-Not Attempted due to Medical Conditions or Safety Concerns. Eating (QC): 6 (Able to open containers/packages by self then uses regular utensils to eat.) Other Treatment Pt takes increased time to complete all tasks due to increased SOA and lengthy recovery breaks. Pt completed 4 UE exercises with medium resistance theraband. Shldr flex and horizontal abd, elbow flex/ext 1 set with B UE then 1 set R UE due to bleeding at IV site on L wrist. After therapy, pt sitting in recliner w ith call light/phone in reach. All needs met in room. OT Short Term Goals Short Term Goals Time Frame: Aug 15, 2020 Toileting hygiene: 4 Upper body dressin Lower body dressin Putting on/taking off footwear: 5 OT Nursing Home Goals Rice Farmer Goals Time Frame: Aug 29, 2020 Eating (QC): 6 Oral Hygiene (QC): 6 Toileting Hygiene (QC): 6 Shower/Bathe Self (QC): 4 Upper Body Dressing (QC): 6 Lower Body Dressing (QC): 6 On/Off Footwear (QC): 6 Additional Goals: 1-Demonstrate ADL Tasks, 2-Verbalize Understanding, 3- ImproveStrength/Chrissy 1=Demonstrate adherence to instructed precautions during ADL tasks. 2=Patient will verbalize/demonstrate understanding of assistive devices/modifications for ADL. 3=Patient will improve strength/tolerance for activity to enable patient to perform ADL's. OT Education/Plan Problem List/Assessment Assessment: Decreased Activ Tolerance, Decreased UE Strength, Impaired Self- Care Skills Discharge Recommendations Plan/Recommendations: Continue POC Treatment Plan/Plan of Care Patient would benefit from OT for education, treatment and training to promote independence in ADL's, mobility, safety and/or upper extremity function for ADL's. Plan of Care: ADL Retraining, Functional Mobility, Group Exercise/Act as Ind, UE Funct Exercise/Act Treatment Duration: Aug 29, 2020 Frequency: At least 5 of 7 days/Wk (IRF) Estimated Hrs Per Day: 1.5 hours per day Rehab Potential: Fair Time/GCodes Start Time: 12:50 Stop Time: 13:20 Total Time Billed (hr/min): 30 Billed Treatment Time 1 visit-EX 2 (30 min) FLORENCIO MARSHALL Aug 06, 2020 13:19
--- NOTE | 2020-08-06 14:20 | Physical Therapy Daily Note ---
PT Daily Note-Current Subjective Agrees to PT. No complaints. Laughs and jokes throughout treatment session. Mental Status Patient Orientation: Person, Place, Time, Situation Attachments: Oxygen (in situ during an dpost treatment. ), IV Oxygen at 94% at start of treatment, after ambulation, went to 89%, but returned to greater than 90% in less than a minute. Transfers SCALE: Activities may be completed with or without assistive devices. 5-Uwztcpgkne-grrnwel completes the activity by him/herself with no assistance from a helper. 5-Set-up or Clean-up Assistance-helper sets up or cleans up; patient completes activity. [place] assists only prior to or following the activity. 4-Supervision or Touching Assistance-helper provides verbal cues and/or touching/steadying and/or contact guard assistance as patient completes activity. Assistance may be provided throughout the activity or intermittently. 3-Partial/Moderate Assistance-helper does LESS THAN HALF the effort. [place] lifts, holds or supports trunk or limbs, but provides less than half the effort. 2-Substantial/Maximal Assistance-helper does MORE THAN HALF the effort. [place] lifts or holds trunk or limbs and provides more than half the effort. 7-Eauevvvfo-ubodim does ALL the effort. Patient does none of the effort to complete the activity. Or, the assistance of 2 or more helpers is required for the patient to complete the activity. If activity was not attempted, code reason: 7-Patient Refused. 9-Not Applicable-not attempted and the patient did not perform the activity before the current illness, exacerbation or injury. 10-Not Attempted due to Environmental Limitations-(lack of equipment, weather restraints, etc.). 88-Not Attempted due to Medical Conditions or Safety Concerns. Sit to Stand (QC): 3 Sit to stand x 5 reps during treatment session with min assist and intermittent cues for hand placment and assist to safely and controlled lower to the chair. Gait Training Does the Patient Walk?: Yes Gait Assistive Device: FWW 100 ft x 2; 50 ft x 2 with FWW with close CGA. Cues for safety and sequencing. Treatments Functional transfer and gait training with focus on safety. Assessment Current Status: Good Progress Pt follows cues well and has good carryover of material. PT Short Term Goals Short Term Goals Time Frame: Aug 20, 2020 Lying to sitting on side of be: 4 Sit to stand: 4 Chair/bdn-xj-kucim transfer: 4 Walk 150 feet: 4 PT Adjunct Physical Education Instructor Goals Long-Term Goals PT Adjunct Physical Education Instructor Goals Time Frame: Aug 27, 2020 Roll Left & Right (QC): 6 Sit to Lying (QC): 6 Lying-Sitting on Side/Bed(QC): 6 Sit to Stand (QC): 6 Chair/Kyh-qz-Egzdw Xfer(QC): 6 Toilet Transfer (QC): 6 Car Transfer (QC): 5 Does the Patient Walk: Yes Walk 10 feet (QC): 6 Walk 50ft with 2 Turns (QC): 6 Walk 150 ft (QC): 6 Walking 10ft on Uneven Surface: 4 1 Step (curb) (QC): 4 4 Steps (QC): 4 12 Steps (QC): 9 Picking up an Object (QC): 9 Wheel 50 feet with 2 turns (QC: 9 Wheel 150 feet: 9 PT Plan Problem List Problem List: Activity Tolerance, Functional Strength, Safety, Balance, Gait, Transfer, Bed Mobility Treatment/Plan Treatment Plan: Continue Plan of Care Treatment Plan: Bed Mobility, Education, Functional Activity Chrissy, Functional Strength, Group Therapy, Gait, Safety, Therapeutic Exercise, Transfers Treatment Duration: Aug 27, 2020 Frequency: At least 5 of 7 days/Wk (IRF) Estimated Hrs Per Day: 1.5 hours per day Patient and/or Family Agrees t: Yes Safety Risks/Education Patient Education: Gait Training, Transfer Techniques Teaching Recipient: Patient Teaching Methods: Discussion Response to Teaching: Reinforcement Needed Time/GCodes Time In: 1320 Time Out: 1355 Total Billed Treatment Time: 35 Total Billed Treatment visit GT 15 FA 20 FLORENCIO HAMM PT Aug 06, 2020 14:20
[2020-08-06] MEDS: CATHETER FLUSH 10 ML SYR IV SCH ×2 (14:24→19:40)
[2020-08-06] MEDS: RT-ALBUTEROL INHALER HFA (VENTOLIN HFA) 18 GM IH SCH ×3 (14:58→22:34)
--- NOTE | 2020-08-06 15:15 | ST Cognitive Linguistic Eval ---
Speech Evaluation-General Medical Diagnosis COPD Myopathy Onset Date: Aug 03, 2020 Therapy Diagnosis Therapy Diagnosis: Cognitive-communication Medical History Pertinent Medical History: Atrial Fib, Arthritis, CAD, COPD, HTN, Neuropathy, OA Reviewed History: Yes Social History Current Living Status: Alone (Good family support) Speech PLF-Current Status Prior Level of Function Patient lives home alone, however she does have good family support to assist her with needs. Subjective Patient was pleasant and cooperative with the cognitive assessment. Language Eval: Auditory Comprehends Simple Yes/No Ques: Functional Indent/Objects Multiple Sparrow: Functional Ident/Pics in Multiple Sparrow: Functional Follows 1-Step Commands: Functional Follows Complex Directions: Functional Follows General Conversations: Functional Language Eval: Verbal Language Completes Spontaneous Greeting: Functional Produces Auto, Serial Info: Functional Imitates Simple Words/Phrases: Functional Word Finding: Functional Requests Basic Needs: Functional States Basic Personal Info: Functional Expresses Complex Ideas: Functional Objective Cognitive Domain Attention: WNL Memory: WNL Problem Solving: Functional Executive Functions: WNL Visuospatial Skills: WNL Composite Severity Rating: WNL Clock Drawing Severity Rating: WNL Objective Formal/Standardized Tests [facility] Mental Status ([facility]) Results 27/30, within normal range of function Oral Motor/Speech Production Within Normal Limits Impression Patient is a pleasant 89 y/o female who was admitted to the ARU for strengthening. The patient is known to this clinician from previous admission. The patient was given the SLUMS with a score of 27/30 obtained. The patient's score is within normal range of function and does not indicate a need for cognitive therapy. The patient exhibits good speech production and swallow function as well. At this time no ST services are recommended. Speech Patient Assess Expression of Ideas/Wants: Expression (4) Understanding Verbal Content: Understands (4) Brief Interview-Mental Status: Yes Repetition of Three Words: Three (3) Temporal Orientation: Year: Correct (3) Temporal Orientation: Month: Accurate within 5 days(2) Temporal Orientation: Day: Correct (1) Recall : Wear to say "Sock": Yes, no cue required (2) Recall : Color: Yes, after cueing (1) Recall : Bed: Yes,after cueing (1) Memory/Recall Ability: Current season, That he or she is in a hsp/hsp unit Speech-Plan Patient/Family Goals Patient/Family Goals: Patient plans on returning to her home with family support. Treatment Plan Speech Therapy Treatment Plan: Discontinue ST Treatment Duration: Aug 06, 2020 Frequency: 1 time per week Estimated Hrs Per Day: .25 hour per day Rehab Potential: Good Barriers to Learning: None identified Pt/Family Agrees to Plan: Yes Safety Risks/Education Teaching Recipient: Patient Teaching Methods: Discussion Response to Teaching: Verbalize Understanding Education Topics Provided: Safety within her room and communication of wants/needs Time Speech Therapy Time In: 14:45 Speech Therapy Time Out: 15:00 Total Billed Time: 15 Billed Treatment Time 1, SPSNDCOMP ANGELINE Lundberg Aug 06, 2020 15:15
[2020-08-06] MEDS ORDERED: LATA2.5D19 OU (15:21)
[2020-08-06 17:17] VITALS: BP 189/79
[2020-08-06] MEDS: FUROSEMIDE 40 MG/4 ML INJ (LASIX) IVP SCH (17:25)
[2020-08-06] MEDS: CARVEDILOL 3.125 MG (COREG) TABLET PO SCH (17:25)
[2020-08-06 19:32] VITALS: BP 140/67
[2020-08-06] MEDS: DOCUSATE SODIUM 100 MG (COLACE) CAP PO SCH (19:38)
[2020-08-06] MEDS: LATANOPROST 0.005% (XALATAN) OPHTH SOLN 2.5 ML OU SCH (19:38)
[2020-08-06] MEDS: TIMOLOL MALEATE 0.5% 5 ML (TIMOPTIC) BTL OU SCH (19:38)
[2020-08-06] MEDS: SENNA W/DOCUSATE (SENOKOT S) TABLET PO SCH (19:39)
[2020-08-06] MEDS: polyethylene glycoL POWDER 17 GM (MIRALAX) PACK PO SCH (19:39)
[2020-08-07] MEDS: RT-ALBUTEROL INHALER HFA (VENTOLIN HFA) 18 GM IH SCH ×6 (02:24→21:14)
[2020-08-07] MEDS: PIPERACILLIN/TAZOBACTAM (BULK) 4.5 GM in NS (IVPB) 100 ML IV SCH ×2 (03:54→12:14)
[2020-08-07 05:24] VITALS: BP 158/71
[2020-08-07 05:52] LABS: BASOPHILS # (AUTO) 0.1 10^3/uL (0.0-0.1); BASOPHILS % (AUTO) 0 % (0-10); EOSINOPHILS # (AUTO) 0.1 10^3/uL (0.0-0.3); EOSINOPHILS % (AUTO) 0 % (0-10); HEMATOCRIT 32 % (35-52); HEMOGLOBIN 10.3 g/dL (11.5-16.0); LYMPHOCYTES # (AUTO) 1.3 10^3/uL (1.0-4.0); LYMPHOCYTES % (AUTO) 10 % (12-44); MEAN CORPUSCULAR HEMOGLOBIN 29 pg (25-34); MEAN CORPUSCULAR HGB CONC 32 g/dL (32-36); MEAN CORPUSCULAR VOLUME 90 fL (80-99); MEAN PLATELET VOLUME 9.5 fL (9.0-12.2); MONOCYTES # (AUTO) 1.3 10^3/uL (0.0-1.0); MONOCYTES % (AUTO) 9 % (0-12); NEUTROPHILS # (AUTO) 10.5 10^3/uL (1.8-7.8); NEUTROPHILS % (AUTO) 77 % (42-75); PLATELET COUNT 394 10^3/uL (130-400); WHITE BLOOD COUNT 13.7 10^3/uL (4.3-11.0)
--- NOTE | 2020-08-07 05:58 | PM&R Progress Note ---
Subjective HPI/CC On Admission Date Seen by Provider: Aug 07, 2020 Time Seen by Provider: 08:00 Subjective/Events-last exam 08/07/20: Patient doing well Settling in well in IRF No pain reported BM today and a bit loose Checked meds and labs Review of Systems General: Fatigue, Malaise Neurological: Weakness Objective Exam Vital Signs Vital Signs Date Time Temp Pulse Resp B/P (MAP) Pulse Ox O2 Delivery O2 Flow Rate FiO2 08/08/20 01:51 91 Nasal Cannula 3.00 08/07/20 15:53 36.6 60 20 149/67 (94) 08/06/20 13:38 32 Capillary Refill : General Appearance: No Apparent Distress, WD/WN, Chronically ill, Obese HEENT: PERRL/EOMI, Normal ENT Inspection, Pharynx Normal Neck: Full Range of Motion, Normal Inspection, Non Tender, Supple, Carotid Bruit Respiratory: Chest Non Tender, Lungs Clear, No Accessory Muscle Use, No Respiratory Distress, Decreased Breath Sounds Cardiovascular: No Edema, No Gallop, No JVD, No Murmur, Normal Peripheral Pulses, Irregularly Irregular Gastrointestinal: Normal Bowel Sounds, No Organomegaly, No Pulsatile Mass, Non Tender, Soft Back: Normal Inspection, No CVA Tenderness, No Vertebral Tenderness Extremity: Normal Capillary Refill, Normal Inspection, Normal Range of Motion, Non Tender, No Calf Tenderness, No Pedal Edema Neurologic/Psychiatric: Alert, Oriented x3, No Motor/Sensory Deficits, Normal Mood/Affect, Abnormal Gait, Motor Weakness (generalized lower extremities 3/5) Skin: Normal Color, Warm/Dry Lymphatic: No Adenopathy Results/Procedures Lab Laboratory Tests 08/07/20 05:26 Patient resulted labs reviewed. FIM Transfers Therapy Code Descriptions/Definitions Functional [place]o Measure: 0=Not Assessed/NA 4=Minimal Assistance 1=Total Assistance 5=Supervision or Setup 2=Maximal Assistance 6=Modified Yeso 3=Moderate Assistance 7=Complete IndependenceSCALE: Activities may be completed with or without assistive devices. 4-Jwkqgwkjif-lfcfceb completes the activity by him/herself with no assistance from a helper. 5-Set-up or Clean-up Assistance-helper sets up or cleans up; patient completes activity. Rio assists only prior to or following the activity. 4-Supervision or Touching Assistance-helper provides verbal cues and/or touching/steadying and/or contact guard assistance as patient completes activity . Assistance may be provided throughout the activity or intermittently. 3-Partial/Moderate Assistance-helper does LESS THAN HALF the effort. Rio lifts, holds or supports trunk or limbs, but provides less than half the effort. 2-Substantial/Maximal Assistance-helper does MORE THAN HALF the effort. Rio lifts or holds trunk or limbs and provides more than half the effort. 1-Qowlzoztk-krmxgd does ALL the effort. Patient does none of the effort to complete the activity. Or, the assistance of 2 or more helpers is required for the patient to complete the activity. If activity was not attempted, code reason: 7-Patient Refused. 9-Not Applicable-not attempted and the patient did not perform the activity before the current illness, exacerbation or injury. 10-Not Attempted due to Environmental Limitations-(lack of equipment, weather restraints, etc.). 88-Not Attempted due to Medical Conditions or Safety Concerns. Roll Left to Right (QC): 3 Sit to Lying (QC): 3 Sit to Stand (QC): 3 Chair/Ebw-rk-Izwyn Xfer(QC): 3 Car Transfer (QC): 3 Gait Training Does the Patient Walk?: Yes Walk 10 feet (QC): 3 Walk 50 ft with 2 Turns(QC): 3 Walk 150 ft (QC): 88 Walking 10ft/uneven surface-QC: 3 Gait Assistive Device: FWW Wheelchair Training Does the Pt Use a Wheelchair?: No Wheel 50 ft with 2 turns (QC): 9 Wheel 150 ft (QC): 9 Stair Training 1 Step (curb) (QC): 3 4 Steps (QC): 88 12 Steps (QC): 88 Balance Picking up an Object (QC): 88 ADL-Treatment Eating (QC): 6 (Able to open containers/packages by self then uses regular utensils to eat.) Oral Hygiene (QC): 5 (set up at tray table) Shower/Bathe Self (QC): 3 (Pt required assistance washing BLEs lower legs/feet, and assist washing buttocks. Pt able to wash other parts seated in recliner.) Upper Body Dressing (QC): 7 Lower Body Dressing (QC): 7 On/Off Footwear (QC): 1 (Assist doffing/donning socks and with alan wraps.) Toileting Hygiene (QC): 2 (Pt able to complete hygiene, assist for thoroughness and fatigue) Assessment/Plan Assessment and Plan Assess & Plan/Chief Complaint Assessment: COPD myopathy Acute on chronic respiratory failure Chronic O2 dependence Debility following PNA and UTI PHTN Edema chronic Chronic right foot drop uses AFO Edema chronic HTN OAB Plan: Monitor BP OAC Appreciate Cardiology IRF protocol 08/07/20: Monitor closely Abx Pain management O2 (1) Myopathy (2) COPD (chronic obstructive pulmonary disease) (3) Afib Status: Acute (4) HLD (hyperlipidemia) Status: Chronic (5) HTN (hypertension) Status: Chronic (6) Obesity Status: Chronic (7) Acute on chronic respiratory failure with hypoxia Status: Acute (8) PNA (pneumonia) Status: Acute (9) Foot drop, right (10) Essential (primary) hypertension (11) Edema (12) Lower lobe pneumonia Status: Acute (13) Oxygen dependent (14) Overactive bladder (15) Glaucoma (16) Debility (17) Hypoxemia RIKA BERUMEN DO Aug 07, 2020 05:58
--- NOTE | 2020-08-07 05:58 | Individualized Plan of Care ---
Individualized Plan of Care Rehab Nursing IPOC Order Admission Date Aug 06, 2020 at 10:30 Current Orders Orders Admission Order(Inpt,Obs,Sdc) (08/06/20 09:23) Vital Signs: Per Unit Policy ( 08,16,00 (08/06/20 09:23) Public Service Director-Inpt Rehab Con (08/06/20 09:23) Rehab Nursing Orders-Ipoc (08/06/20:23) Physical Therapy Rehab Orders (08/06/20:23) Occupational Therapy Rehab Ord (08/06/20 09:23) Speech Therapy Rehab Orders (08/06/20:23) Cbc With Automated Diff (08/07/20 06:00) Comprehensive Metabolic Panel (08/07/20 06:00) Intake & Output 06,14,22 (08/06/20 09:23) Precautions (Aru) (08/06/20 09:23) Rehab-Intensity Of Therapy (08/06/20 09:23) Initiate Admission Nursing Pro .admission (08/06/20 09:23) Alprazolam Tablet (Xanax Tablet) (08/06/20 09:30) Calcium Carbonate Chew Tablet (Antacid C (08/06/20 09:30) Diphenhydramine Tablet (Benadryl Tablet) (08/06/20 09:30) Docusate Sodium Capsule (Colace Capsule) (08/06/20 21:00) Docusate Sodium Capsule (Colace Capsule) (08/06/20 09:30) Bisacodyl Suppository (Dulcolax Supposit (08/06/20 09:30) Lactulose Oral Solution (Enulose Oral So (08/06/20 09:30) Na Phos/Na Biphos Enema (Fleet Enema Owen (08/06/20 09:30) Guaifenesin/Codeine Syrup (Robitussin Ac (08/06/20 09:30) Loperamide Tablet (Imodium Tablet) (08/06/20 09:30) Melatonin Tablet (Melatonin Tablet) (08/06/20 09:30) Polyethylene Glycol Powder Pkt (Miralax (08/06/20 21:00) Ondansetron Oral Dissolve Tab (Zofran (08/06/20 09:30) Senna S Tablet (Senokot S Tablet) (08/06/20 21:00) Initiate Admission Nursing Pro .admission (08/06/20 09:23) Code/Resuscitation (08/06/20 11:36) Albuterol Inhaler (Ventolin Hfa) (08/06/20 11:45) Carvedilol Tablet (Coreg Tablet) (08/06/20 18:00) Furosemide Injection (Lasix Injection) (08/06/20 17:00) Latanoprost 0.005% Ophth Soln (Xalatan 0 (08/06/20 21:00) Ondansetron Injection (Zofran Injectio (08/06/20 11:45) Piperacillin/Tazobactam (Bulk) (Zosyn In (08/06/20 12:00) Rivaroxaban Tablet (Xarelto Tablet) (08/07/20 08:00) Sodium Chloride Flush (Catheter Flush Sy (08/06/20 14:00) Timolol 0.5% Ophthalmic Soln (Timoptic 0 (08/06/20 21:00) Diltiazem Cd 24 Hr Capsule (Cardizem Cd (08/07/20 09:00) Prednisone Tablet (Deltasone Tablet) (08/07/20 07:00) Consult Cardiology (08/06/20 11:36) Albuterol Inhaler (Ventolin Hfa) (08/06/20 14:00) Mat Initiate Protocol (08/06/20 13:38) Pharmacy Consult/Message (08/06/20 14:03) Patient Visit (08/06/20 ) Speech Sound Lang Comp (08/06/20 ) Patient Visit (08/06/20 ) Pt Eval Moderate Complexity (08/06/20 ) Functional Activities, Ea 15 (08/06/20 ) Gait Training, Ea 15 Min (08/06/20 ) General/Regular (08/07/20 Lunch) Patient Visit (08/07/20 ) Functional Activities, Ea 15 (08/07/20 ) Exercise Therap, Ea 15 Min (08/07/20 ) Patient Visit (08/07/20 ) Gait Training, Ea 15 Min (08/07/20 ) Functional Activities, Ea 15 (08/07/20 ) Rehab Nursing Orders: Ongoing Assess. of Cognitive Status, Ongoing Assess. of Function Status, Bladder Management, Bladder Scan, Bladder Training, Bowel Management, Bowel Training, Disease Management & Educaiton, DVT Prophylaxis, Fall Prevention, Fluid/Electrolyte/Nutrition Mgmt, Infection Prevention, Medication Management & Education, Management of Risks & Complications, Management of Skin Intergrity, Nutrition Management, Pain Management, Patient/Family Support, Safety Management Intensity of Therapy to be met Patient to be seen: Min.3h per day/5 of 7d PT IPOC Problem List: Activity Tolerance, Functional Strength, Safety, Balance, Gait, Transfer, Bed Mobility Treatment Plan: Continue Plan of Care Bed Mobility, Education, Functional Activity Chrissy, Functional Strength, Group Therapy, Gait, Safety, Therapeutic Exercise, Transfers Treatment Duration: Aug 27, 2020 Frequency: At least 5 of 7 days/Wk (IRF) Estimated Hrs Per Day: 1.5 hours per day OT IPOC Problems: Decreased Activ Tolerance, Decreased UE Strength, Impaired Self-Care Skills OT Treatment, Training and Edu: Yes Plan of Care: ADL Retraining, Functional Mobility, Group Exercise/Act as Ind, UE Funct Exercise/Act Treatment Duration: Aug 29, 2020 Frequency: At least 5 of 7 days/Wk (IRF) Estimated Hrs Per Day: 1.[address] IPOC Speech Therapy Treatment Plan: Discontinue ST Treatment Duration: Aug 06, 2020 Frequency: 1 time per week Estimated Hrs Per Day: .25 hour per day Public Service Director/Case Mgmt Public Service Director/Case Managemen: Discharge Planning Dietitian/District Plant Superintendent Dietitian/District Plant Superintendent to monitor nutritional status and make changes and/or recommendations as needed and work with speech pathology on dietary upgrades as the occur. Physician IPOC Medical Issues being managed closely and that require the 24 hour availability of a physician: Recent critical illness requiring ICU care will require close monitoring of hypoxia and completion of abx and will be monitored closely for decompensation Medical Issues: Bowel/Bladder Function, DVT Prophylaxis, Falls Precautions, Fluid/Electrolyte/Nutrition Balance, Infection Protection, Pain Management Brief Synthesis of Preadmission Screen, Post-Admission Evaluation, and Therapy Evaluations: PT OT will focus on regaining function from pre-hospital stay along with increasing ADL independence and increasing use of AD in order to return to live independently Medical Prognosis: Good Anticipated Length of Stay: 7 days RIKA BERUMEN DO Aug 07, 2020 05:58
[2020-08-07 06:13] LABS: BILIRUBIN,TOTAL 0.5 MG/DL (0.1-1.0); CALCIUM 7.9 MG/DL (8.5-10.1); CREATININE SERUM 1.2 MG/DL (0.60-1.30); POTASSIUM 3.7 MMOL/L (3.6-5.0); TOTAL PROTEIN 5.9 GM/DL (6.4-8.2)
[2020-08-07] MEDS: FUROSEMIDE 40 MG/4 ML INJ (LASIX) IVP SCH ×2 (06:54→17:45)
[2020-08-07] MEDS: predniSONE 20 MG TAB PO SCH (06:54)
[2020-08-07] MEDS: CATHETER FLUSH 10 ML SYR IV SCH ×3 (06:55→21:00)
[2020-08-07] MEDS: dilTIAZem120 MG (CARDIZEM CD) CAP PO SCH (08:46)
[2020-08-07] MEDS: polyethylene glycoL POWDER 17 GM (MIRALAX) PACK PO SCH ×2 (08:46→19:49)
[2020-08-07] MEDS: DOCUSATE SODIUM 100 MG (COLACE) CAP PO SCH ×2 (08:46→19:49)
[2020-08-07] MEDS: RIVAROXABAN 15 MG TABLET (XARELTO) PO SCH (08:46)
[2020-08-07] MEDS: CARVEDILOL 3.125 MG (COREG) TABLET PO SCH ×2 (08:46→17:45)
[2020-08-07] MEDS: SENNA W/DOCUSATE (SENOKOT S) TABLET PO SCH ×2 (08:47→19:49)
--- NOTE | 2020-08-07 09:08 | Physical Therapy Daily Note ---
PT Daily Note-Current Subjective Pt sitting in recliner upon arrival. Pt agrees to PT but reports not receiving her breakfast. READING PROFESSOR assists with ordering & breakfast arrives at end of tx. Pain Location: No Pain Reported Mental Status Patient Orientation: Person, Place, Time, Situation Attachments: Oxygen, Other-See Comments (Ezequiel Wrap for B LE) Transfers SCALE: Activities may be completed with or without assistive devices. 5-Yuvaovanal-apzwroi completes the activity by him/herself with no assistance from a helper. 5-Set-up or Clean-up Assistance-helper sets up or cleans up; patient completes activity. Rowley assists only prior to or following the activity. 4-Supervision or Touching Assistance-helper provides verbal cues and/or touching/steadying and/or contact guard assistance as patient completes activity. Assistance may be provided throughout the activity or intermittently. 3-Partial/Moderate Assistance-helper does LESS THAN HALF the effort. Rowley lif ts, holds or supports trunk or limbs, but provides less than half the effort. 2-Substantial/Maximal Assistance-helper does MORE THAN HALF the effort. Rowley lifts or holds trunk or limbs and provides more than half the effort. 7-Foyqmmvkf-vnqwge does ALL the effort. Patient does none of the effort to complete the activity. Or, the assistance of 2 or more helpers is required for the patient to complete the activity. If activity was not attempted, code reason: 7-Patient Refused. 9-Not Applicable-not attempted and the patient did not perform the activity before the current illness, exacerbation or injury. 10-Not Attempted due to Environmental Limitations-(lack of equipment, weather restraints, etc.). 88-Not Attempted due to Medical Conditions or Safety Concerns. Weight Bearing Full Weight Bearing Full Weight Bearing Exercises Supine Ex: Ankle pumps, Quad Set, Glut sets, Heel Slides, Short Arc Quads, Straight leg raise, Hip abd/add Supine Reps: 15 Treatments Pt declines needing BR. Pt frustrated with not receiving breakfast yet but w illing to work with ARCHITECTURAL INSPECTOR on EX until food arrives. Pt completes Supine Ex in recliner with several RB. Food arrives and pt discusses proper positioning with pt to aid in B LE swelling. Pt resting and eating at end of tx with all needs met, call light in hand. Assessment Current Status: Fair Progress Pt continues to remain SOA due to diagnosis. PT Short Term Goals Short Term Goals Time Frame: Aug 20, 2020 Lying to sitting on side of be: 4 Sit to stand: 4 Chair/slk-tx-pimdo transfer: 4 Walk 150 feet: 4 PT Vitreo Retinal Surgeon Goals Vitreo Retinal Surgeon Goals PT Vitreo Retinal Surgeon Goals Time Frame: Aug 27, 2020 Roll Left & Right (QC): 6 Sit to Lying (QC): 6 Lying-Sitting on Side/Bed(QC): 6 Sit to Stand (QC): 6 Chair/Jaj-wr-Uhljn Xfer(QC): 6 Toilet Transfer (QC): 6 Car Transfer (QC): 5 Does the Patient Walk: Yes Walk 10 feet (QC): 6 Walk 50ft with 2 Turns (QC): 6 Walk 150 ft (QC): 6 Walking 10ft on Uneven Surface: 4 1 Step (curb) (QC): 4 4 Steps (QC): 4 12 Steps (QC): 9 Picking up an Object (QC): 9 Wheel 50 feet with 2 turns (QC: 9 Wheel 150 feet: 9 PT Plan Problem List Problem List: Activity Tolerance, Functional Strength Treatment/Plan Treatment Plan: Continue Plan of Care Treatment Plan: Bed Mobility, Education, Functional Activity Chrissy, Functional Strength, Group Therapy, Gait, Safety, Therapeutic Exercise, Transfers Treatment Duration: Aug 27, 2020 Frequency: At least 5 of 7 days/Wk (IRF) Estimated Hrs Per Day: 1.5 hours per day Patient and/or Family Agrees t: Yes Safety Risks/Education Patient Education: Transfer Techniques, Correct Positioning, Safety Issues Teaching Recipient: Patient Teaching Methods: Discussion Response to Teaching: Verbalize Understanding Time/GCodes Time In: 800 Time Out: 900 Total Billed Treatment Time: 60 Total Billed Treatment 1, FA x2 (30m) & EX x2 (30m) ANTHONYLEIDY ARCHITECTURAL INSPECTOR Aug 07, 2020 09:08
--- NOTE | 2020-08-07 11:48 | Occupational Ther Daily Note ---
OT Current Status-Daily Note Subjective Pt seated in recliner, agreeable to OT tx. Pt does not verbalize any pain. ADL-Treatment Therapy Code Descriptions/Definitions Functional [place] Measure: 0=Not Assessed/NA 4=Minimal Assistance 1=Total Assistance 5=Supervision or Setup 2=Maximal Assistance 6=Modified [place] 3=Moderate Assistance 7=Complete IndependenceSCALE: Activities may be completed with or without assistive devices. 0-Lszwbdxpia-iumjyjy completes the activity by him/herself with no assistance from a helper. 5-Set-up or Clean-up Assistance-helper sets up or cleans up; patient completes activity. Sarah assists only prior to or following the activity. 4-Supervision or Touching Assistance-helper provides verbal cues and/or touching/steadying and/or contact guard assistance as patient completes activity. Assistance may be provided throughout the activity or intermittently. 3-Partial/Moderate Assistance-helper does LESS THAN HALF the effort. Sarah lifts, holds or supports trunk or limbs, but provides less than half the effort. 2-Substantial/Maximal Assistance-helper does MORE THAN HALF the effort. Sarah lifts or holds trunk or limbs and provides more than half the effort. 1-Brwdjwqja-cazgwd does ALL the effort. Patient does none of the effort to complete the activity. Or, the assistance of 2 or more helpers is required for the patient to complete the activity. If activity was not attempted, code reason: 7-Patient Refused. 9-Not Applicable-not attempted and the patient did not perform the activity before the current illness, exacerbation or injury. 10-Not Attempted due to Environmental Limitations-(lack of equipment, weather restraints, etc.). 88-Not Attempted due to Medical Conditions or Safety Concerns. Shower/Bathe Self (QC): 3 (Assist washing BLEs lower legs/feet, and buttocks. Pt washed other parts seated in recliner.) Upper Body Dressing (QC): 3 (Pt required cue to manage O2 tubing. Pt donned bra and bleach boiler puller shirt, assist with fasteners of bra) Lower Body Dressing (QC): 3 (Pt able to thread pants, assist with pant hike) On/Off Footwear: 1 (Assist donning/doffing socks and alan wraps) Toileting Hygiene (QC): 3 (Assist with hyigene, pt able to manage brief) Other Treatment Pt seated in recliner, completed sponge bath and upper body dressing. Pt states need to use bathroom, used FWW to ambulate to bathroom, CGA. Pt completed toil eting, then transferred back to recliner to finish dressing. OT assisted pt with applying lotion to lower legs/feet and with putting alan wraps back on LEs after washing. Pt required frequent rest breaks with task. Pt put in her partial dentures. Mod A-CGA with sit <-> stands transfers throughout tx. Post tx, pt seated in recliner, call light in reach and all needs met. Education OT Patient Education: Correct positioning, Energy conservation, Modified ADL techniques, Progress toward Goal/Update tx plan, Purpose of tx/functional activities Teaching Recipient: Patient Teaching Methods: Discussion Response to Teaching: Verbalize Understanding OT Short Term Goals Short Term Goals Time Frame: Aug 15, 2020 Toileting hygiene: 4 Upper body dressin Lower body dressin Putting on/taking off footwear: 5 OT Detention Goals Watch Inspector Goals Time Frame: Aug 29, 2020 Eating (QC): 6 Oral Hygiene (QC): 6 Toileting Hygiene (QC): 6 Shower/Bathe Self (QC): 4 Upper Body Dressing (QC): 6 Lower Body Dressing (QC): 6 On/Off Footwear (QC): 6 Additional Goals: 1-Demonstrate ADL Tasks, 2-Verbalize Understanding, 3- ImproveStrength/Chrissy 1=Demonstrate adherence to instructed precautions during ADL tasks. 2=Patient will verbalize/demonstrate understanding of assistive devices/modifications for ADL. 3=Patient will improve strength/tolerance for activity to enable patient to perform ADL's. OT Education/Plan Problem List/Assessment Assessment: Decreased Activ Tolerance, Decreased UE Strength, Impaired I ADL's, Impaired Self-Care Skills, Restricted Funct UE ROM Discharge Recommendations Plan/Recommendations: Continue POC Treatment Plan/Plan of Care Patient would benefit from OT for education, treatment and training to promote independence in ADL's, mobility, safety and/or upper extremity function for ADL's. Plan of Care: ADL Retraining, Functional Mobility, Group Exercise/Act as Ind, UE Funct Exercise/Act Treatment Duration: Aug 29, 2020 Frequency: At least 5 of 7 days/Wk (IRF) Estimated Hrs Per Day: 1.5 hours per day Rehab Potential: Good Time/GCodes Start Time: 10:15 Stop Time: 11:15 Total Time Billed (hr/min): 60 Billed Treatment Time 1, ADL 4 PAWEL CHUNG OT Aug 07, 2020 11:48
[2020-08-07] MEDS: TIMOLOL MALEATE 0.5% 5 ML (TIMOPTIC) BTL OU SCH ×2 (12:14→20:59)
--- NOTE | 2020-08-07 13:59 | Occupational Ther Daily Note ---
OT Current Status-Daily Note Subjective Pt seated up in chair after lunch, agreeable to OT Tx with focus on UE exercise. ADL-Treatment Therapy Code Descriptions/Definitions Functional [place] Measure: 0=Not Assessed/NA 4=Minimal Assistance 1=Total Assistance 5=Supervision or Setup 2=Maximal Assistance 6=Modified [place] 3=Moderate Assistance 7=Complete IndependenceSCALE: Activities may be completed with or without assistive devices. 8-Lfxxyeakhi-gedvumy completes the activity by him/herself with no assistance from a helper. 5-Set-up or Clean-up Assistance-helper sets up or cleans up; patient completes activity. [place] assists only prior to or following the activity. 4-Supervision or Touching Assistance-helper provides verbal cues and/or touching/steadying and/or contact guard assistance as patient completes activity. Assistance may be provided throughout the activity or intermittently. 3-Partial/Moderate Assistance-helper does LESS THAN HALF the effort. [place] lifts, holds or supports trunk or limbs, but provides less than half the effort. 2-Substantial/Maximal Assistance-helper does MORE THAN HALF the effort. [place] lifts or holds trunk or limbs and provides more than half the effort. 7-Agonxwoby-cafjmk does ALL the effort. Patient does none of the effort to complete the activity. Or, the assistance of 2 or more helpers is required for the patient to complete the activity. If activity was not attempted, code reason: 7-Patient Refused. 9-Not Applicable-not attempted and the patient did not perform the activity before the current illness, exacerbation or injury. 10-Not Attempted due to Environmental Limitations-(lack of equipment, weather restraints, etc.). 88-Not Attempted due to Medical Conditions or Safety Concerns. Other Treatment OT tx with focus on UE exercise in order to increase BUE strength, activity tolerance, and pulmonary function. Pt completed 4 UE exercises using moderate resistance theraband, frequent rest breaks required due to SOA and lengthy recovery breaks. Pt able to recall 3/4 exercises, with minimal skilled verbal cues for correction. Pt completed shoulder flexion, horizontal abduction, and elbow flexion/extension. Post tx, pt seated in recliner, call light in reach and all needs met. Education OT Patient Education: Correct positioning, Energy conservation, Exercise pr ogram, Modified ADL techniques, Progress toward Goal/Update tx plan, Purpose of tx/functional activities Teaching Recipient: Patient Teaching Methods: Demonstration, Discussion Response to Teaching: Verbalize Understanding, Return Demonstration OT Short Term Goals Short Term Goals Time Frame: Aug 15, 2020 Toileting hygiene: 4 Upper body dressin Lower body dressin Putting on/taking off footwear: 5 OT Tearer Goals Tearer Goals Time Frame: Aug 29, 2020 Eating (QC): 6 Oral Hygiene (QC): 6 Toileting Hygiene (QC): 6 Shower/Bathe Self (QC): 4 Upper Body Dressing (QC): 6 Lower Body Dressing (QC): 6 On/Off Footwear (QC): 6 Additional Goals: 1-Demonstrate ADL Tasks, 2-Verbalize Understanding, 3- ImproveStrength/Chrissy 1=Demonstrate adherence to instructed precautions during ADL tasks. 2=Patient will verbalize/demonstrate understanding of assistive devices/modifications for ADL. 3=Patient will improve strength/tolerance for activity to enable patient to perform ADL's. OT Education/Plan Problem List/Assessment Assessment: Decreased Activ Tolerance, Decreased UE Strength, Impaired I ADL's, Impaired Self-Care Skills Discharge Recommendations Plan/Recommendations: Continue POC Treatment Plan/Plan of Care Patient would benefit from OT for education, treatment and training to promote independence in ADL's, mobility, safety and/or upper extremity function for ADL's. Plan of Care: ADL Retraining, Functional Mobility, Group Exercise/Act as Ind, UE Funct Exercise/Act Treatment Duration: Aug 29, 2020 Frequency: At least 5 of 7 days/Wk (IRF) Estimated Hrs Per Day: 1.5 hours per day Rehab Potential: Good Time/GCodes Start Time: 13:00 Stop Time: 13:30 Total Time Billed (hr/min): 30 Billed Treatment Time 1, EX 2 PAWEL CHUNG OT Aug 07, 2020 13:58
--- NOTE | 2020-08-07 14:59 | Physical Therapy Daily Note ---
PT Daily Note-Current Subjective Pt sitting in recliner upon arrival. Pt agrees to PT. Pain Location: No Pain Reported Mental Status Patient Orientation: Person, Place, Situation Attachments: Oxygen, IV Transfers SCALE: Activities may be completed with or without assistive devices. 6-Ydszdsvkbw-zyamyqx completes the activity by him/herself with no assistance from a helper. 5-Set-up or Clean-up Assistance-helper sets up or cleans up; patient completes activity. [place] assists only prior to or following the activity. 4-Supervision or Touching Assistance-helper provides verbal cues and/or touching/steadying and/or contact guard assistance as patient completes activity. Assistance may be provided throughout the activity or intermittently. 3-Partial/Moderate Assistance-helper does LESS THAN HALF the effort. [place] lifts, holds or supports trunk or limbs, but provides less than half the effort. 2-Substantial/Maximal Assistance-helper does MORE THAN HALF the effort. [place] lifts or holds trunk or limbs and provides more than half the effort. 1-Csxibwlot-lkuxzl does ALL the effort. Patient does none of the effort to complete the activity. Or, the assistance of 2 or more helpers is required for the patient to complete the activity. If activity was not attempted, code reason: 7-Patient Refused. 9-Not Applicable-not attempted and the patient did not perform the activity before the current illness, exacerbation or injury. 10-Not Attempted due to Environmental Limitations-(lack of equipment, weather restraints, etc.). 88-Not Attempted due to Medical Conditions or Safety Concerns. Sit to Stand (QC): 4 Toilet Transfer (QC): 4 Weight Bearing Full Weight Bearing Full Weight Bearing Gait Training Does the Patient Walk?: Yes Distance: 150' x2 Walk 10 feet (QC): 4 Walk 50 ft with 2 Turns(QC): 4 Walk 150 ft (QC): 4 Gait Persons Needed: 1 Gait Assistive Device: FWW Pt fatigues and needs frequent RB. Treatments TF to standing and amb. in hallway with RB as needed. Pt returns to room and asks to use BR. Pt returns to recliner to rest with feet elevated. All needs met, call light in hand. Assessment Current Status: Fair Progress Pt is improving with consistent TF but still fatigues quickly and needs frequent RB. PT Short Term Goals Short Term Goals Time Frame: Aug 20, 2020 Lying to sitting on side of be: 4 Sit to stand: 4 Chair/qqw-kr-ucukq transfer: 4 Walk 150 feet: 4 PT Ferris Wheel Operator Goals Ferris Wheel Operator Goals PT Ferris Wheel Operator Goals Time Frame: Aug 27, 2020 Roll Left & Right (QC): 6 Sit to Lying (QC): 6 Lying-Sitting on Side/Bed(QC): 6 Sit to Stand (QC): 6 Chair/Fal-no-Asmdx Xfer(QC): 6 Toilet Transfer (QC): 6 Car Transfer (QC): 5 Does the Patient Walk: Yes Walk 10 feet (QC): 6 Walk 50ft with 2 Turns (QC): 6 Walk 150 ft (QC): 6 Walking 10ft on Uneven Surface: 4 1 Step (curb) (QC): 4 4 Steps (QC): 4 12 Steps (QC): 9 Picking up an Object (QC): 9 Wheel 50 feet with 2 turns (QC: 9 Wheel 150 feet: 9 PT Plan Problem List Problem List: Activity Tolerance, Functional Strength, Gait Treatment/Plan Treatment Plan: Continue Plan of Care Treatment Plan: Bed Mobility, Education, Functional Activity Chrissy, Functional Strength, Group Therapy, Gait, Safety, Therapeutic Exercise, Transfers Treatment Duration: Aug 27, 2020 Frequency: At least 5 of 7 days/Wk (IRF) Estimated Hrs Per Day: 1.5 hours per day Patient and/or Family Agrees t: Yes Safety Risks/Education Patient Education: Gait Training, Correct Positioning, Safety Issues Teaching Recipient: Patient Teaching Methods: Discussion Response to Teaching: Verbalize Understanding Time/GCodes Time In: 1330 Time Out: 1415 Total Billed Treatment Time: 45 Total Billed Treatment 1, GT x2 (25m) & FA (20m) LEIDY CRUZ [employer] WORK[employer] Aug 07, 2020 14:59
[2020-08-07 15:53] VITALS: BP 149/67
--- NOTE | 2020-08-07 16:51 | Progress Note - Cardiology ---
Cardiology SOAP Progress Note Subjective: Shortness of breath with mild to mod exertion No cp or palp or syncope No n/v/d Gen malaise and weakness Objective: I&O/Vital Signs 08/07/20 08/07/20 08/07/20 08/07/20 05:24 06:57 08:00 10:04 Temp 36.2 Pulse 64 Resp 20 B/P (MAP) 158/71 (100) Pulse Ox 93 96 92 98 O2 Delivery High Flow N/C Nasal Cannula Nasal Cannula Nasal Cannula O2 Flow Rate 3.00 3.00 3.00 3.00 08/07/20 08/07/20 15:16 15:53 Temp 36.6 Pulse 60 Resp 20 B/P (MAP) 149/67 (94) Pulse Ox 98 96 O2 Delivery Nasal Cannula O2 Flow Rate 3.00 08/07/20 00:00 Intake Total 500 ml Balance 500 ml Constitutional: AAO x 3, well-developed, well-nourished Respiratory: No accessory muscle use; other (good, bilateral air entry) Cardiovascular: regular rate-rhythm, S1 and S2, systolic murmur (soft DAPHNE at card base) Gastrointestional: No tender; soft; No guarding, No rebound; audible bowel sounds Extremities: swelling (mod, bilateral, pitting leg edema); No clubbing, No cyanosis Neurologic/Psychiatric: oriented x 3, other (moves all limbs equally) Results/Procedures: Labs Laboratory Tests 08/07/20 05:26: White Blood Count 13.7H, Red Blood Count 3.54L, Hemoglobin 10.3L, Hematocrit 32L , Mean Corpuscular Volume 90, Mean Corpuscular Hemoglobin 29, Mean Corpuscular Hemoglobin Concent 32, Red Cell Distribution Width 13.2, Platelet Count 394, Mean Platelet Volume 9.5, Immature Granulocyte % (Auto) 3, Neutrophils (%) (Auto) 77H, Lymphocytes (%) (Auto) 10L, Monocytes (%) (Auto) 9, Eosinophils (%) (Auto) 0, Basophils (%) (Auto) 0, Neutrophils # (Auto) 10.5H, Lymphocytes # (Auto) 1.3, Monocytes # (Auto) 1.3H, Eosinophils # (Auto) 0.1, Basophils # (Auto) 0.1, Immature Granulocyte # (Auto) 0.5H, Sodium Level 137, Potassium Level 3.7, Chloride Level 102, Carbon Dioxide Level 24, Anion Gap 11, Blood Urea Nitrogen 32H, Creatinine 1.20, Estimat Glomerular Filtration Rate 42, BUN/Creatinine Ratio 27, Glucose Level 97, Calcium Level 7.9L, Corrected Calcium 8.7, Total Bilirubin 0.5, Aspartate Amino Transf (AST/SGOT) 32, Alanine Aminotransferase (ALT/SGPT) 48, Alkaline Phosphatase 74, Total Protein 5.9L, Albumin 3.0L Laboratory Tests 08/07/20 05:26 A/P: Assessment: Ac resp insuff due to pneumonia, managed by primary care team. Acute diastolic CHF, currently clinically compensated - echocardiogram done on August 04, 2020 showing normal left ventricular systolic function, ejection fraction 60 percent, mild mitral regurgitation, mild aortic stenosis, pulmonary artery pressure of 40-45 mmHg Chronic, bilateral leg edema, likely due to venous insuff Sinus node dysfunction, history of permanent pacemaker, alternating between sinus rhythm and atrial paced rhythm Paroxysmal atrial fibrillation, on rivaroxaban CKD-3 Hypertension, improved Hyperlipidemia Plan: * Continue dilt and bb for rate control * Continue rivaroxaban (adjusted to age and renal function) * Monitor labs * I answered her CV-related questions BRIE LLANOS MD FACP [facility] Aug 07, 2020 16:51
[2020-08-07] MEDS: LATANOPROST 0.005% (XALATAN) OPHTH SOLN 2.5 ML OU SCH (21:00)
[2020-08-08] MEDS: RT-ALBUTEROL INHALER HFA (VENTOLIN HFA) 18 GM IH SCH ×6 (01:51→21:33)
[2020-08-08 05:33] VITALS: BP 186/79
--- NOTE | 2020-08-08 05:35 | PM&R Progress Note ---
Subjective HPI/CC On Admission Date Seen by Provider: Aug 08, 2020 Time Seen by Provider: 10:00 Subjective/Events-last exam 08/08/20: Patient feels good No pain reported O2 maintained Checked meds and labs 08/07/20: Patient doing well Settling in well in IRF No pain reported BM today and a bit loose Checked meds and labs Review of Systems General: Fatigue, Malaise Pulmonary: Dyspnea Neurological: Weakness Objective Exam Vital Signs Vital Signs Date Time Temp Pulse Resp B/P (MAP) Pulse Ox O2 Delivery O2 Flow Rate FiO2 08/09/20 08:06 94 Nasal Cannula 3.00 08/09/20 06:30 37.2 60 20 159/68 (98) 08/06/20 13:38 32 Capillary Refill : General Appearance: No Apparent Distress, WD/WN, Chronically ill, Obese HEENT: PERRL/EOMI, Normal ENT Inspection, Pharynx Normal Neck: Full Range of Motion, Normal Inspection, Non Tender, Supple, Carotid Bruit Respiratory: Chest Non Tender, Lungs Clear, No Accessory Muscle Use, No Respiratory Distress, Decreased Breath Sounds Cardiovascular: No Edema, No Gallop, No JVD, No Murmur, Normal Peripheral Pulses, Irregularly Irregular Gastrointestinal: Normal Bowel Sounds, No Organomegaly, No Pulsatile Mass, Non Tender, Soft Back: Normal Inspection, No CVA Tenderness, No Vertebral Tenderness Extremity: Normal Capillary Refill, Normal Inspection, Normal Range of Motion, Non Tender, No Calf Tenderness, No Pedal Edema Neurologic/Psychiatric: Alert, Oriented x3, No Motor/Sensory Deficits, Normal Mood/Affect, Abnormal Gait, Motor Weakness (generalized lower extremities 3/5) Skin: Normal Color, Warm/Dry Lymphatic: No Adenopathy Results/Procedures Lab Patient resulted labs reviewed. FIM Transfers Therapy Code Descriptions/Definitions Functional [place] Measure: 0=Not Assessed/NA 4=Minimal Assistance 1=Total Assistance 5=Supervision or Setup 2=Maximal Assistance 6=Modified [place] 3=Moderate Assistance 7=Complete IndependenceSCALE: Activities may be completed with or without assistive devices. 2-Jmfxkhqouw-obdnpbp completes the activity by him/herself with no assistance from a helper. 5-Set-up or Clean-up Assistance-helper sets up or cleans up; patient completes activity. [place] assists only prior to or following the activity. 4-Supervision or Touching Assistance-helper provides verbal cues and/or touching/steadying and/or contact guard assistance as patient completes activity. Assistance may be provided throughout the activity or intermittently. 3-Partial/Moderate Assistance-helper does LESS THAN HALF the effort. [place] lifts, holds or supports trunk or limbs, but provides less than half the effort. 2-Substantial/Maximal Assistance-helper does MORE THAN HALF the effort. [place] lifts or holds trunk or limbs and provides more than half the effort. 1-Fdmyomhhs-ihbwkn does ALL the effort. Patient does none of the effort to compl ete the activity. Or, the assistance of 2 or more helpers is required for the patient to complete the activity. If activity was not attempted, code reason: 7-Patient Refused. 9-Not Applicable-not attempted and the patient did not perform the activity before the current illness, exacerbation or injury. 10-Not Attempted due to Environmental Limitations-(lack of equipment, weather restraints, etc.). 88-Not Attempted due to Medical Conditions or Safety Concerns. Roll Left to Right (QC): 3 Sit to Lying (QC): 3 Sit to Stand (QC): 4 Chair/Oas-em-Xkpug Xfer(QC): 3 Car Transfer (QC): 3 Gait Training Does the Patient Walk?: Yes Distance: 150' x2 Walk 10 feet (QC): 4 Walk 50 ft with 2 Turns(QC): 4 Walk 150 ft (QC): 4 Walking 10ft/uneven surface-QC: 3 Gait Persons Needed: 1 Gait Assistive Device: FWW Wheelchair Training Does the Pt Use a Wheelchair?: No Wheel 50 ft with 2 turns (QC): 9 Wheel 150 ft (QC): 9 Stair Training 1 Step (curb) (QC): 3 4 Steps (QC): 88 12 Steps (QC): 88 Balance Picking up an Object (QC): 88 ADL-Treatment Eating (QC): 6 (Able to open containers/packages by self then uses regular utensils to eat.) Oral Hygiene (QC): 5 (set up at tray table) Shower/Bathe Self (QC): 3 (Assist washing BLEs lower legs/feet, and buttocks. Pt washed other parts seated in recliner.) Upper Body Dressing (QC): 3 (Pt required cue to manage O2 tubing. Pt donned bra and assembler for puller over hand shirt, assist with fasteners of bra) Lower Body Dressing (QC): 3 (Pt able to thread pants, assist with pant hike) On/Off Footwear (QC): 1 (Assist donning/doffing socks and alan wraps) Toileting Hygiene (QC): 3 (Assist with hyigene, pt able to manage brief) Assessment/Plan Assessment and Plan Assess & Plan/Chief Complaint Assessment: COPD myopathy Acute on chronic respiratory failure Chronic O2 dependence Debility following PNA and UTI PHTN Edema chronic Chronic right foot drop uses AFO Edema chronic HTN OAB Plan: Monitor BP OAC Appreciate Cardiology IRF protocol 08/07/20: Monitor closely Abx Pain management O2 08/08/20: Monitor closely BP management O2 maintained (1) Myopathy (2) COPD (chronic obstructive pulmonary disease) (3) Afib Status: Acute (4) HLD (hyperlipidemia) Status: Chronic (5) HTN (hypertension) Status: Chronic (6) Obesity Status: Chronic (7) Acute on chronic respiratory failure with hypoxia Status: Acute (8) PNA (pneumonia) Status: Acute (9) Foot drop, right (10) Essential (primary) hypertension (11) Edema (12) Lower lobe pneumonia Status: Acute (13) Oxygen dependent (14) Overactive bladder (15) Glaucoma (16) Debility (17) Hypoxemia RIKA BERUMEN DO Aug 08, 2020 05:34
[2020-08-08] MEDS: predniSONE 20 MG TAB PO SCH (06:40)
[2020-08-08] MEDS: CATHETER FLUSH 10 ML SYR IV SCH ×3 (06:40→20:20)
[2020-08-08] MEDS: FUROSEMIDE 40 MG/4 ML INJ (LASIX) IVP SCH ×2 (06:40→16:31)
[2020-08-08] MEDS: RIVAROXABAN 15 MG TABLET (XARELTO) PO SCH (07:33)
[2020-08-08] MEDS: CARVEDILOL 3.125 MG (COREG) TABLET PO SCH (07:33)
[2020-08-08] MEDS: dilTIAZem120 MG (CARDIZEM CD) CAP PO SCH (07:33)
[2020-08-08] MEDS: DOCUSATE SODIUM 100 MG (COLACE) CAP PO SCH ×2 (07:34→20:20)
[2020-08-08] MEDS: polyethylene glycoL POWDER 17 GM (MIRALAX) PACK PO SCH ×2 (07:34→20:20)
[2020-08-08] MEDS: TIMOLOL MALEATE 0.5% 5 ML (TIMOPTIC) BTL OU SCH (07:34)
[2020-08-08] MEDS: SENNA W/DOCUSATE (SENOKOT S) TABLET PO SCH ×2 (07:34→20:20)
[2020-08-08 08:00] VITALS: BP 173/76
[2020-08-08] MEDS ORDERED: CARVEDILOL 6.25 MG (COREG) TAB PO ONE (09:30)
[2020-08-08] MEDS ORDERED: dilTIAZem120 MG (CARDIZEM CD) CAP PO ONE (09:45)
[2020-08-08 10:00] VITALS: BP 166/77
--- NOTE | 2020-08-08 10:23 | Occupational Ther Daily Note ---
OT Current Status-Daily Note Subjective Pt alert, sitting in recliner. Pt agrees to therapy. No c/o pain at this time. During ADLs pt noticed redness and irritation under pannis, ointment applied. Pt c/o pain around anus due to increased visits to bathroom for BM's. Mental Status/Objective Patient Orientation: Person, Place, Time, Situation Attachments: IV, Oxygen ADL-Treatment Pt agrees to shower. Monitoring BP 188/81, report to nrsg. Pt wants to continue with shower, taking frequent breaks and assisting pt with the more strenuous tasks. Pt requested to use toilet 2x's during session. Min A for stand to sit, mod A for sit to stand. Pt able to manipulate clothing and cleanse self initially then pt fatigued and assist given on 2nd time. Transferred into shower with min A, out of shower mod A. Mod A for shower, pt using hand held shower, shower seat and grabbars. Pt able to complete upper b curt dressing by self after set up. Assist given for lower body dressing due to increase BP and fatigue. Edema wrapping both lower legs completed using 3 ETTA wraps, assist to don/doff socks. Pt sat at sink to complete oral care and grooming. After session, pt sitting in w/c with call light/phone in reach. Nrsg in room with pt. All needs met in room. Therapy Code Descriptions/Definitions Functional [place] Measure: 0=Not Assessed/NA 4=Minimal Assistance 1=Total Assistance 5=Supervision or Setup 2=Maximal Assistance 6=Modified [place] 3=Moderate Assistance 7=Complete IndependenceSCALE: Activities may be completed with or without assistive devices. 3-Qwelkglzhr-dkymulq completes the activity by him/herself with no assistance from a helper. 5-Set-up or Clean-up Assistance-helper sets up or cleans up; patient completes activity. [place] assists only prior to or following the activity. 4-Supervision or Touching Assistance-helper provides verbal cues and/or touching/steadying and/or contact guard assistance as patient completes activity. Assistance may be provided throughout the activity or intermittently. 3-Partial/Moderate Assistance-helper does LESS THAN HALF the effort. [place] lifts, holds or supports trunk or limbs, but provides less than half the effort. 2-Substantial/Maximal Assistance-helper does MORE THAN HALF the effort. [place] lifts or holds trunk or limbs and provides more than half the effort. 8-Jgghaoldm-wjiuxz does ALL the effort. Patient does none of the effort to complete the activity. Or, the assistance of 2 or more helpers is required for the patient to complete the activity. If activity was not attempted, code reason: 7-Patient Refused. 9-Not Applicable-not attempted and the patient did not perform the activity before the current illness, exacerbation or injury. 10-Not Attempted due to Environmental Limitations-(lack of equipment, weather restraints, etc.). 88-Not Attempted due to Medical Conditions or Safety Concerns. Eating (QC): 6 Oral Hygiene (QC): 6 Bathing Location: L Arm, R Arm, L Upper Leg, R Upper Leg, Chest, Abdomen Shower/Bathe Self (QC): 3 (Mod A.) Upper Body Dressing (QC): 5 Lower Body Dressing (QC): 2 On/Off Footwear: 2 Toileting Hygiene (QC): 3 Toilet Transfer (QC): 3 OT Short Term Goals Short Term Goals Time Frame: Aug 15, 2020 Toileting hygiene: 4 Upper body dressin Lower body dressin Putting on/taking off footwear: 5 OT Charging Car Operator Goals Charging Car Operator Goals Time Frame: Aug 29, 2020 Eating (QC): 6 Oral Hygiene (QC): 6 Toileting Hygiene (QC): 6 Shower/Bathe Self (QC): 4 Upper Body Dressing (QC): 6 Lower Body Dressing (QC): 6 On/Off Footwear (QC): 6 Additional Goals: 1-Demonstrate ADL Tasks, 2-Verbalize Understanding, 3- ImproveStrength/Chrissy 1=Demonstrate adherence to instructed precautions during ADL tasks. 2=Patient will verbalize/demonstrate understanding of assistive devices/modifications for ADL. 3=Patient will improve strength/tolerance for activity to enable patient to perform ADL's. OT Education/Plan Problem List/Assessment Assessment: Decreased Activ Tolerance, Decreased UE Strength, Impaired Funct Balance, Impaired Self-Care Skills Discharge Recommendations Plan/Recommendations: Continue POC Treatment Plan/Plan of Care Patient would benefit from OT for education, treatment and training to promote independence in ADL's, mobility, safety and/or upper extremity function for ADL's. Plan of Care: ADL Retraining, Functional Mobility, Group Exercise/Act as Ind, UE Funct Exercise/Act Treatment Duration: Aug 29, 2020 Frequency: At least 5 of 7 days/Wk (IRF) Estimated Hrs Per Day: 1.5 hours per day Rehab Potential: Good Time/GCodes Start Time: 07:30 Stop Time: 09:00 Total Time Billed (hr/min): 90 Billed Treatment Time 1 visit-ADL 6 (90 min) FLORENCIO MARSHALL Aug 08, 2020 10:23
--- NOTE | 2020-08-08 10:25 | Physical Therapy Daily Note ---
PT Daily Note-Current Subjective Pt. up in w/c, agrees to Rx but states, "they are worried a bout my BP", pt. agrees to gentle seated exercises and Rx as tolerated . Pt. reported headache that increased with Rx and activity. All BP recordings were reported to nursing . Pain Numeric Pain Scale: 4 Location: Medial Location Body Site: Head Pain Description: Ache Appearance rec flushed face Mental Status Patient Orientation: Normal For Age Attachments: Oxygen (3L) Transfers SCALE: Activities may be completed with or without assistive devices. 7-Ekaoomkyrf-yrtlhad completes the activity by him/herself with no assistance from a helper. 5-Set-up or Clean-up Assistance-helper sets up or cleans up; patient completes activity. [place] assists only prior to or following the activity. 4-Supervision or Touching Assistance-helper provides verbal cues and/or touching/steadying and/or contact guard assistance as patient completes activity. Assistance may be provided throughout the activity or intermittently. 3-Partial/Moderate Assistance-helper does LESS THAN HALF the effort. [place] lifts, holds or supports trunk or limbs, but provides less than half the effort. 2-Substantial/Maximal Assistance-helper does MORE THAN HALF the effort. [place] lifts or holds trunk or limbs and provides more than half the effort. 9-Lhqedlxya-fywrwy does ALL the effort. Patient does none of the effort to complete the activity. Or, the assistance of 2 or more helpers is required for the patient to complete the activity. If activity was not attempted, code reason: 7-Patient Refused. 9-Not Applicable-not attempted and the patient did not perform the activity before the current illness, exacerbation or injury. 10-Not Attempted due to Environmental Limitations-(lack of equipment, weather restraints, etc.). 88-Not Attempted due to Medical Conditions or Safety Concerns. Sit to Stand (QC): 4 Toilet Transfer (QC): 4 pt. struggles sit to stand from low toilet and med w/c height requiring min to mod assist and instruction in use of rails and chair arms etc Weight Bearing Full Weight Bearing Full Weight Bearing Gait Training Does the Patient Walk?: Yes Walk 10 feet (QC): 4 Walk 50 ft with 2 Turns(QC): 4 Gait Persons Needed: 1 Gait Assistive Device: FWW foot drop right, edema bilat LEs R>L, pt. needs some assistance for managing extended O2 tubing and comments that this is a concern at home and she is very careful Wheelchair Training Does the Pt Use a Wheelchair?: Yes Wheel 50 ft with 2 turns (QC): 4 Exercises Seated Therapy Exercises: Ankle pumps, Sit to stand, Long arc quads, Hip flexion, Hip abd/add Seated Reps: 15 Standing: Hip Abduction, Heel/toe raises, Marching, Side steps Standing Reps: 15 Treatments pt. toileted with mod assist clothing, and cleaning and TRF. Rx done slowly with frequent rest breaks checking BP, HR and O2 sats : BP 171/80, HR 61, O2 sats 94% on 3L BP 191/88, HR 66, O2 sats 95% BP 196/87, HR 62, O2 sats 96% pt. then began c/o headache, nursing was advised of all findings, white sourer present to assess pt, prescribed higher dose BP meds, nurse dispensed and and offered Tylenol for GRIFFITH Assessment Current Status: Good Progress pt. with great attitude and gives good effort, pt. up in recliner after Rx with call oconnell and blanket, BP 193/81, HR 63, O2 sats 98% , GRIFFITH continues PT Short Term Goals Short Term Goals Time Frame: Aug 20, 2020 Lying to sitting on side of be: 4 Sit to stand: 4 Chair/jkl-xh-jvjcj transfer: 4 Walk 150 feet: 4 PT Unit Coordinator Goals Unit Coordinator Goals PT Unit Coordinator Goals Time Frame: Aug 27, 2020 Roll Left & Right (QC): 6 Sit to Lying (QC): 6 Lying-Sitting on Side/Bed(QC): 6 Sit to Stand (QC): 6 Chair/Qof-ur-Qiwis Xfer(QC): 6 Toilet Transfer (QC): 6 Car Transfer (QC): 5 Does the Patient Walk: Yes Walk 10 feet (QC): 6 Walk 50ft with 2 Turns (QC): 6 Walk 150 ft (QC): 6 Walking 10ft on Uneven Surface: 4 1 Step (curb) (QC): 4 4 Steps (QC): 4 12 Steps (QC): 9 Picking up an Object (QC): 9 Wheel 50 feet with 2 turns (QC: 9 Wheel 150 feet: 9 PT Plan Treatment/Plan Treatment Plan: Continue Plan of Care Treatment Plan: Bed Mobility, Education, Functional Activity Chrissy, Functional Strength, Group Therapy, Gait, Safety, Therapeutic Exercise, Transfers Treatment Duration: Aug 27, 2020 Frequency: At least 5 of 7 days/Wk (IRF) Estimated Hrs Per Day: 1.5 hours per day Patient and/or Family Agrees t: Yes Safety Risks/Education Patient Education: Gait Training, Transfer Techniques, Correct Positioning, Disease Process, Safety Issues Teaching Recipient: Patient Teaching Methods: Demonstration, Discussion Response to Teaching: Verbalize Understanding, Return Demonstration, Reinf orcement Needed Time/GCodes Time In: 900 Time Out: 1015 Total Billed Treatment Time: 75 Total Billed Treatment 1,FA45m,EX20m,GT10m DERIAN MERCADO PTA Aug 08, 2020 10:25
--- NOTE | 2020-08-08 13:19 | Physical Therapy Daily Note ---
PT Daily Note-Current Subjective Pt. up in recliner, agrees to therex in sitting and wants to go to bathroom Pain Location: No Pain Reported Mental Status Patient Orientation: Normal For Age Attachments: Oxygen Transfers SCALE: Activities may be completed with or without assistive devices. 3-Ebacwthgpn-iwewxyn completes the activity by him/herself with no assistance from a helper. 5-Set-up or Clean-up Assistance-helper sets up or cleans up; patient completes activity. [place] assists only prior to or following the activity. 4-Supervision or Touching Assistance-helper provides verbal cues and/or touching/steadying and/or contact guard assistance as patient completes activity. Assistance may be provided throughout the activity or intermittently. 3-Partial/Moderate Assistance-helper does LESS THAN HALF the effort. [place] lifts, holds or supports trunk or limbs, but provides less than half the effort. 2-Substantial/Maximal Assistance-helper does MORE THAN HALF the effort. [place] lifts or holds trunk or limbs and provides more than half the effort. 9-Pnbbypvgg-ugrozk does ALL the effort. Patient does none of the effort to complete the activity. Or, the assistance of 2 or more helpers is required for the patient to complete the activity. If activity was not attempted, code reason: 7-Patient Refused. 9-Not Applicable-not attempted and the patient did not perform the activity before the current illness, exacerbation or injury. 10-Not Attempted due to Environmental Limitations-(lack of equipment, weather restraints, etc.). 88-Not Attempted due to Medical Conditions or Safety Concerns. sit to stands all min to CGA Weight Bearing Full Weight Bearing Full Weight Bearing Gait Training Does the Patient Walk?: Yes Gait Assistive Device: FWW 15ftx2 to bthrm and back, CGA slow, heavy wt bearing on FWW Exercises Seated Therapy Exercises: Ankle pumps, Sit to stand, Shoulder Flex, Shoulder Abd Seated Reps: 15 Treatments managed pants up down and cleaning indep Assessment Current Status: Good Progress O2 sats 98% on 3 L O2 PT Short Term Goals Short Term Goals Time Frame: Aug 20, 2020 Lying to sitting on side of be: 4 Sit to stand: 4 Chair/jam-gy-rscuq transfer: 4 Walk 150 feet: 4 PT Assisted Goals Assisted Goals PT Assisted Goals Time Frame: Aug 27, 2020 Roll Left & Right (QC): 6 Sit to Lying (QC): 6 Lying-Sitting on Side/Bed(QC): 6 Sit to Stand (QC): 6 Chair/Eze-jz-Dgdrx Xfer(QC): 6 Toilet Transfer (QC): 6 Car Transfer (QC): 5 Does the Patient Walk: Yes Walk 10 feet (QC): 6 Walk 50ft with 2 Turns (QC): 6 Walk 150 ft (QC): 6 Walking 10ft on Uneven Surface: 4 1 Step (curb) (QC): 4 4 Steps (QC): 4 12 Steps (QC): 9 Picking up an Object (QC): 9 Wheel 50 feet with 2 turns (QC: 9 Wheel 150 feet: 9 PT Plan Treatment/Plan Treatment Plan: Continue Plan of Care Treatment Plan: Bed Mobility, Education, Functional Activity Chrissy, Functional Strength, Group Therapy, Gait, Safety, Therapeutic Exercise, Transfers Treatment Duration: Aug 27, 2020 Frequency: At least 5 of 7 days/Wk (IRF) Estimated Hrs Per Day: 1.5 hours per day Patient and/or Family Agrees t: Yes Safety Risks/Education Patient Education: Gait Training, Transfer Techniques, Correct Positioning, Disease Process, Safety Issues Teaching Recipient: Patient Teaching Methods: Demonstration, Discussion Response to Teaching: Verbalize Understanding, Return Demonstration, Reinforcement Needed Time/GCodes Time In: 1300 Time Out: 1315 Total Billed Treatment Time: 15 Total Billed Treatment 1,FAAleksandarm DERIAN MERCADO PTA Aug 08, 2020 13:19
--- NOTE | 2020-08-08 15:24 | Progress Note - Cardiology ---
Cardiology SOAP Progress Note Subjective: Gen malaise and weakness Shortness of breath as before No cp or palp or syncope No n/v/d Objective: I&O/Vital Signs 08/08/20 08/08/20 08/08/20 08/08/20 05:33 07:15 08:00 08:00 Temp 36.2 Pulse 60 63 Resp 19 B/P (MAP) 186/79 (114) 173/76 (108) Pulse Ox 97 98 94 O2 Delivery High Flow N/C Nasal Cannula Nasal Cannula O2 Flow Rate 3.00 3.00 3.00 08/08/20 08/08/20 08/08/20 10:00 10:18 14:02 Pulse 61 B/P (MAP) 166/77 (106) Pulse Ox 97 95 O2 Delivery Nasal Cannula Nasal Cannula O2 Flow Rate 3.00 3.00 08/08/20 00:00 Intake Total 1680 ml Balance 1680 ml Constitutional: AAO x 3, well-developed, well-nourished Respiratory: No accessory muscle use; other (good, bilateral air entry) Cardiovascular: regular rate-rhythm, S1 and S2, systolic murmur (soft DAPHNE at card base) Gastrointestional: No tender; soft; No guarding, No rebound; audible bowel sounds Extremities: swelling (mod, bilateral, pitting leg edema); No clubbing, No cyanosis Neurologic/Psychiatric: oriented x 3, other (moves all limbs equally) Results/Procedures: Labs Laboratory Tests 08/07/20 05:26 A/P: Assessment: Uncontrolled hypertension Ac resp insuff due to pneumonia, managed by primary care team. Acute diastolic CHF, currently clinically compensated - echocardiogram done on August 04, 2020 showing normal left ventricular systolic function, ejection fraction 60 percent, mild mitral regurgitation, mild aortic stenosis, pulmonary artery pressure of 40-45 mmHg Chronic, bilateral leg edema, likely due to venous insuff Sinus node dysfunction, history of permanent pacemaker, alternating between sinus rhythm and atrial paced rhythm Paroxysmal atrial fibrillation, on rivaroxaban CKD-3 Hyperlipidemia Plan: * Increase dilt and bb (for better bp control) * Continue rivaroxaban (adjusted to age and renal function) * Monitor labs * I answered her CV-related questions BRIE LLANOS MD FACP [facility] Aug 08, 2020 15:24
[2020-08-08] MEDS: CARVEDILOL 12.5 MG (COREG) TABLET PO SCH (17:45)
[2020-08-08 17:51] VITALS: BP 144/69
[2020-08-08] MEDS: LATANOPROST 0.005% (XALATAN) OPHTH SOLN 2.5 ML OU SCH (20:20)
[2020-08-09] MEDS: RT-ALBUTEROL INHALER HFA (VENTOLIN HFA) 18 GM IH SCH ×4 (01:49→18:23)
[2020-08-09] MEDS: CATHETER FLUSH 10 ML SYR IV SCH ×3 (06:26→20:18)
[2020-08-09] MEDS: predniSONE 20 MG TAB PO SCH (06:26)
[2020-08-09] MEDS: FUROSEMIDE 40 MG/4 ML INJ (LASIX) IVP SCH ×2 (06:26→17:32)
[2020-08-09 06:30] VITALS: BP 159/68
[2020-08-09] MEDS: DOCUSATE SODIUM 100 MG (COLACE) CAP PO SCH ×2 (07:33→20:15)
[2020-08-09] MEDS: SENNA W/DOCUSATE (SENOKOT S) TABLET PO SCH ×2 (07:33→20:15)
[2020-08-09] MEDS: polyethylene glycoL POWDER 17 GM (MIRALAX) PACK PO SCH ×2 (07:33→20:15)
[2020-08-09] MEDS: CARVEDILOL 12.5 MG (COREG) TABLET PO SCH ×2 (08:09→17:32)
[2020-08-09] MEDS: RIVAROXABAN 15 MG TABLET (XARELTO) PO SCH (08:10)
--- NOTE | 2020-08-09 10:23 | Physical Therapy Daily Note ---
PT Daily Note-Current Subjective Pt. agrees to Rx, would like to get up out of bed, toilet etc. Pain Location: No Pain Reported Mental Status Patient Orientation: Normal For Age Attachments: Oxygen (3L) Transfers SCALE: Activities may be completed with or without assistive devices. 9-Rpzrdheckz-ntddkbx completes the activity by him/herself with no assistance from a helper. 5-Set-up or Clean-up Assistance-helper sets up or cleans up; patient completes activity. [place] assists only prior to or following the activity. 4-Supervision or Touching Assistance-helper provides verbal cues and/or touching/steadying and/or contact guard assistance as patient completes activity. Assistance may be provided throughout the activity or intermittently. 3-Partial/Moderate Assistance-helper does LESS THAN HALF the effort. [place] lifts, holds or supports trunk or limbs, but provides less than half the effort. 2-Substantial/Maximal Assistance-helper does MORE THAN HALF the effort. [place] lifts or holds trunk or limbs and provides more than half the effort. 3-Zxafnwseh-rzvqnp does ALL the effort. Patient does none of the effort to complete the activity. Or, the assistance of 2 or more helpers is required for the patient to complete the activity. If activity was not attempted, code reason: 7-Patient Refused. 9-Not Applicable-not attempted and the patient did not perform the activity before the current illness, exacerbation or injury. 10-Not Attempted due to Environmental Limitations-(lack of equipment, weather restraints, etc.). 88-Not Attempted due to Medical Conditions or Safety Concerns. Sit to Stand (QC): 4 Toilet Transfer (QC): 4 Weight Bearing Full Weight Bearing Full Weight Bearing Gait Training Does the Patient Walk?: Yes Gait Assistive Device: FWW gait CGA 70 ft x 3 with emphasis on managing extended O2 tubing about room and in small spaces ( like home) pt. needed min assist and instruction for safety etc Pt with foot drop right but too much edema still to cliff shoe and AFO. Pt. managing this well with steppage gait pattern Treatments in bathroom pt. required max assist to doff brief and mod assist to don clean, mod assist to clean after toileting Assessment Current Status: Good Progress still fatigues and needs assist for safety with function PT Short Term Goals Short Term Goals Time Frame: Aug 20, 2020 Lying to sitting on side of be: 4 Sit to stand: 4 Chair/evd-fw-uknfr transfer: 4 Walk 150 feet: 4 PT Electrician Apprentice Powerhouse Goals Electrician Apprentice Powerhouse Goals PT Snf Goals Time Frame: Aug 27, 2020 Roll Left & Right (QC): 6 Sit to Lying (QC): 6 Lying-Sitting on Side/Bed(QC): 6 Sit to Stand (QC): 6 Chair/Tra-wu-Zrpue Xfer(QC): 6 Toilet Transfer (QC): 6 Car Transfer (QC): 5 Does the Patient Walk: Yes Walk 10 feet (QC): 6 Walk 50ft with 2 Turns (QC): 6 Walk 150 ft (QC): 6 Walking 10ft on Uneven Surface: 4 1 Step (curb) (QC): 4 4 Steps (QC): 4 12 Steps (QC): 9 Picking up an Object (QC): 9 Wheel 50 feet with 2 turns (QC: 9 Wheel 150 feet: 9 PT Plan Treatment/Plan Treatment Plan: Continue Plan of Care Treatment Plan: Bed Mobility, Education, Functional Activity Chrissy, Functional Strength, Group Therapy, Gait, Safety, Therapeutic Exercise, Transfers Treatment Duration: Aug 27, 2020 Frequency: At least 5 of 7 days/Wk (IRF) Estimated Hrs Per Day: 1.5 hours per day Patient and/or Family Agrees t: Yes Safety Risks/Education Patient Education: Gait Training, Transfer Techniques, Correct Positioning, Disease Process, Safety Issues Teaching Recipient: Patient Teaching Methods: Demonstration, Discussion Response to Teaching: Verbalize Understanding, Return Demonstration, Reinforcement Needed Time/GCodes Time In: 855 Time Out: 918 Total Billed Treatment Time: 23 Total Billed Treatment 1,GT13m,FAAzaliam DERIAN MERCADO [employer]ER Aug 09, 2020 10:23
--- NOTE | 2020-08-09 10:57 | PM&R Progress Note ---
Subjective HPI/CC On Admission Date Seen by Provider: Aug 09, 2020 Time Seen by Provider: 11:00 Subjective/Events-last exam 08/10/20: Patient doing well No complaints IV abx completed Holding laxatives due to loose stools 08/08/20: Patient feels good No pain reported O2 maintained Checked meds and labs 08/07/20: Patient doing well Settling in well in IRF No pain reported BM today and a bit loose Checked meds and labs Review of Systems General: Fatigue, Malaise Pulmonary: Dyspnea Objective Exam Vital Signs Vital Signs Date Time Temp Pulse Resp B/P (MAP) Pulse Ox O2 Delivery O2 Flow Rate FiO2 08/10/20 09:32 62 20 177/73 (107) 98 Nasal Cannula 3.00 08/10/20 06:30 36.2 08/09/20 11:07 3 Capillary Refill : General Appearance: No Apparent Distress, WD/WN, Chronically ill, Obese HEENT: PERRL/EOMI, Normal ENT Inspection, Pharynx Normal Neck: Full Range of Motion, Normal Inspection, Non Tender, Supple, Carotid Bruit Respiratory: Chest Non Tender, Lungs Clear, No Accessory Muscle Use, No Respiratory Distress, Decreased Breath Sounds Cardiovascular: No Edema, No Gallop, No JVD, No Murmur, Normal Peripheral Pulses, Irregularly Irregular Gastrointestinal: Normal Bowel Sounds, No Organomegaly, No Pulsatile Mass, Non Tender, Soft Back: Normal Inspection, No CVA Tenderness, No Vertebral Tenderness Extremity: Normal Capillary Refill, Normal Inspection, Normal Range of Motion, Non Tender, No Calf Tenderness, No Pedal Edema Neurologic/Psychiatric: Alert, Oriented x3, No Motor/Sensory Deficits, Normal Mood/Affect, Abnormal Gait, Motor Weakness (generalized lower extremities 3/5) Skin: Normal Color, Warm/Dry Lymphatic: No Adenopathy Results/Procedures Lab Patient resulted labs reviewed. [facility]IM Transfers Therapy Code Descriptions/Definitions Functional [place] Measure: 0=Not Assessed/NA 4=Minimal Assistance 1=Total Assistance 5=Supervision or Setup 2=Maximal Assistance 6=Modified [place] 3=Moderate Assistance 7=Complete IndependenceSCALE: Activities may be completed with or without assistive devices. 8-Nqanhfejxc-ssanbsw completes the activity by him/herself with no assistance from a helper. 5-Set-up or Clean-up Assistance-helper sets up or cleans up; patient completes activity. [place] assists only prior to or following the activity. 4-Supervision or Touching Assistance-helper provides verbal cues and/or touching/steadying and/or contact guard assistance as patient completes activity. Assistance may be provided throughout the activity or intermittently. 3-Partial/Moderate Assistance-helper does LESS THAN HALF the effort. [place] lifts, holds or supports trunk or limbs, but provides less than half the effort. 2-Substantial/Maximal Assistance-helper does MORE THAN HALF the effort. [place] lifts or holds trunk or limbs and provides more than half the effort. 4-Sehfzjbdk-ebycpo does ALL the effort. Patient does none of the effort to complete the activity. Or, the assistance of 2 or more helpers is required for the patient to complete the activity. If activity was not attempted, code reason: 7-Patient Refused. 9-Not Applicable-not attempted and the patient did not perform the activity before the current illness, exacerbation or injury. 10-Not Attempted due to Environmental Limitations-(lack of equipment, weather restraints, etc.). 88-Not Attempted due to Medical Conditions or Safety Concerns. Roll Left to Right (QC): 3 Sit to Lying (QC): 3 Sit to Stand (QC): 4 Chair/Hod-mk-Zivur Xfer(QC): 3 Car Transfer (QC): 3 Gait Training Does the Patient Walk?: Yes Distance: 150' x2 Walk 10 feet (QC): 4 Walk 50 ft with 2 Turns(QC): 4 Walk 150 ft (QC): 4 Walking 10ft/uneven surface-QC: 3 Gait Persons Needed: 1 Gait Assistive Device: FWW Wheelchair Training Does the Pt Use a Wheelchair?: Yes Wheel 50 ft with 2 turns (QC): 4 Wheel 150 ft (QC): 9 Stair Training 1 Step (curb) (QC): 3 4 Steps (QC): 88 12 Steps (QC): 88 Balance Picking up an Object (QC): 88 ADL-Treatment Eating (QC): 6 Oral Hygiene (QC): 6 Bathing Location: L Arm, R Arm, L Upper Leg, R Upper Leg, Chest, Abdomen Shower/Bathe Self (QC): 3 (Mod A.) Upper Body Dressing (QC): 5 Lower Body Dressing (QC): 2 On/Off Footwear (QC): 2 Toileting Hygiene (QC): 3 Toilet Transfer (QC): 3 Assessment/Plan Assessment and Plan Assess & Plan/Chief Complaint Assessment: COPD myopathy Acute on chronic respiratory failure Chronic O2 dependence Debility following PNA and UTI PHTN Edema chronic Chronic right foot drop uses AFO Edema chronic HTN OAB Plan: Monitor BP OAC Appreciate Cardiology IRF protocol 08/07/20: Monitor closely Abx Pain management O2 08/08/20: Monitor closely BP management O2 maintained 08/09/20: Monitor dyspnea O2 Monitor for falls (1) Myopathy (2) COPD (chronic obstructive pulmonary disease) (3) Afib Status: Acute (4) HLD (hyperlipidemia) Status: Chronic (5) HTN (hypertension) Status: Chronic (6) Obesity Status: Chronic (7) Acute on chronic respiratory failure with hypoxia Status: Acute (8) PNA (pneumonia) Status: Acute (9) Foot drop, right (10) Essential (primary) hypertension (11) Edema (12) Lower lobe pneumonia Status: Acute (13) Oxygen dependent (14) Overactive bladder (15) Glaucoma (16) Debility (17) Hypoxemia RIKA BERUMEN DO Aug 09, 2020 10:57
[2020-08-09 11:07] VITALS: BP 159/68
--- NOTE | 2020-08-09 14:38 | Progress Note - Cardiology ---
Cardiology SOAP Progress Note Subjective: Had headache today, none yesterday No cp or palp or syncope Shortness of breath with exertion as before Some gen malaise No n/v/d Objective: I&O/Vital Signs 08/09/20 08/09/20 08/09/20 08/09/20 06:30 07:18 08:06 11:07 Temp 37.2 37.2 Pulse 60 62 Resp 20 B/P (MAP) 159/68 (98) Pulse Ox 96 97 94 98 O2 Delivery High Flow N/C Nasal Cannula Nasal Cannula O2 Flow Rate 3.00 3.00 3.00 FiO2 3 08/09/20 11:07 Pulse Ox 98 O2 Delivery Nasal Cannula O2 Flow Rate 3.00 08/09/20 00:00 Intake Total 1240 ml Balance 1240 ml Constitutional: AAO x 3, well-developed, well-nourished Respiratory: No accessory muscle use; other (good, bilateral air entry) Cardiovascular: regular rate-rhythm, S1 and S2, systolic murmur (soft DAPHNE at card base) Gastrointestional: No tender; soft; No guarding, No rebound; audible bowel sounds Extremities: swelling (mod, bilateral, pitting leg edema); No clubbing, No cyanosis Neurologic/Psychiatric: oriented x 3, other (moves all limbs equally) A/P: Assessment: Uncontrolled hypertension, improved after adjustment of meds on 08-08-20 Ac resp insuff due to pneumonia, managed by primary care team. Acute diastolic CHF, currently clinically compensated - echocardiogram done on August 04, 2020 showing normal left ventricular systolic function, ejection fraction 60 percent, mild mitral regurgitation, mild aortic stenosis, pulmonary artery pressure of 40-45 mmHg Chronic, bilateral leg edema, likely due to venous insuff Sinus node dysfunction, history of permanent pacemaker, alternating between sinus rhythm and atrial paced rhythm Paroxysmal atrial fibrillation, on rivaroxaban CKD-3 Hyperlipidemia Plan: * Continue current regimen * Monitor labs from time to time BRIE LLANOS MD FACP [facility] Aug 09, 2020 14:38
[2020-08-09] MEDS: TIMOLOL MALEATE 0.5% 5 ML (TIMOPTIC) BTL OU SCH (14:41)
[2020-08-09 17:12] VITALS: BP 153/74
[2020-08-09] MEDS: LATANOPROST 0.005% (XALATAN) OPHTH SOLN 2.5 ML OU SCH (20:18)
[2020-08-10] MEDS: CATHETER FLUSH 10 ML SYR IV SCH ×3 (06:15→20:44)
[2020-08-10] MEDS: predniSONE 20 MG TAB PO SCH (06:16)
[2020-08-10] MEDS: FUROSEMIDE 40 MG/4 ML INJ (LASIX) IVP SCH (06:16)
[2020-08-10 06:30] VITALS: BP 166/82
[2020-08-10] MEDS: RT-ALBUTEROL INHALER HFA (VENTOLIN HFA) 18 GM IH SCH ×2 (07:17→20:40)
[2020-08-10 09:32] VITALS: BP 177/73
[2020-08-10] MEDS: CARVEDILOL 12.5 MG (COREG) TABLET PO SCH ×2 (09:51→18:41)
[2020-08-10] MEDS: RIVAROXABAN 15 MG TABLET (XARELTO) PO SCH (09:51)
[2020-08-10] MEDS: TIMOLOL MALEATE 0.5% 5 ML (TIMOPTIC) BTL OU SCH (09:54)
[2020-08-10] MEDS: DOCUSATE SODIUM 100 MG (COLACE) CAP PO SCH ×2 (11:07→20:43)
[2020-08-10] MEDS: polyethylene glycoL POWDER 17 GM (MIRALAX) PACK PO SCH ×2 (11:07→20:43)
[2020-08-10] MEDS: SENNA W/DOCUSATE (SENOKOT S) TABLET PO SCH ×2 (11:08→20:43)
[2020-08-10] MEDS ORDERED: amLODIPine 5 MG (NORVASC) TAB PO ONE (13:15)
[2020-08-10] MEDS ORDERED: KCL 20 MEQ TAB (K-DUR) PO ONE (13:15)
--- NOTE | 2020-08-10 13:18 | Progress Note - Cardiology ---
Cardiology SOAP Progress Note Subjective: Gen malaise and weakness Shortness of breath with activity No cp or palp or syncope Leg swelling has resolved No n/v/d Objective: I&O/Vital Signs 08/10/20 08/10/20 08/10/20 08/10/20 06:30 07:17 08:23 09:32 Temp 36.2 Pulse 60 62 Resp 20 20 B/P (MAP) 166/82 (110) 177/73 (107) Pulse Ox 95 98 98 O2 Delivery Nasal Cannula Nasal Cannula Nasal Cannula Nasal Cannula O2 Flow Rate 3.00 3.00 3.00 3.00 08/10/20 00:00 Intake Total 1050 ml Balance 1050 ml Constitutional: AAO x 3, well-developed, well-nourished Respiratory: No accessory muscle use; other (good, bilateral air entry) Cardiovascular: regular rate-rhythm, S1 and S2, systolic murmur (soft DAPHNE at card base) Gastrointestional: No tender; soft; No guarding, No rebound; audible bowel sounds Extremities: swelling (mod, bilateral, pitting leg edema); No clubbing, No cyanosis Neurologic/Psychiatric: oriented x 3, other (moves all limbs equally) A/P: Assessment: Uncontrolled hypertension Ac resp insuff due to pneumonia, managed by primary care team. Acute diastolic CHF, currently clinically compensated - echocardiogram done on August 04, 2020 showing normal left ventricular systolic function, ejection fraction 60 percent, mild mitral regurgitation, mild aortic stenosis, pulmonary artery pressure of 40-45 mmHg Chronic, bilateral leg edema, likely due to venous insuff Sinus node dysfunction, history of permanent pacemaker, alternating between sinus rhythm and atrial paced rhythm Paroxysmal atrial fibrillation, on rivaroxaban CKD-3 Hyperlipidemia Plan: * Add amlodipine * Change furosemide to oral * Add K * Monitor labs BRIE LLANOS MD FACP [facility] Aug 10, 2020 13:18
--- NOTE | 2020-08-10 14:20 | PM&R Progress Note ---
Subjective HPI/CC On Admission Date Seen by Provider: Aug 10, 2020 Time Seen by Provider: 15:00 Subjective/Events-last exam 08/10/20: Patient doing well Dr Brower started Norvasc 5mg for elevated BP Buttocks are sore so placed pad in chair No laxatives needed Potassium changed Lasix changed Increased transfer ability 08/09/20: Patient doing well No complaints IV abx completed Holding laxatives due to loose stools 08/08/20: Patient feels good No pain reported O2 maintained Checked meds and labs 08/07/20: Patient doing well Settling in well in IRF No pain reported BM today and a bit loose Checked meds and labs Review of Systems General: Fatigue, Malaise Pulmonary: Dyspnea Objective Exam Vital Signs Vital Signs Date Time Temp Pulse Resp B/P (MAP) Pulse Ox O2 Delivery O2 Flow Rate FiO2 08/10/20 20:00 Nasal Cannula 3.00 08/10/20 17:08 36.5 63 18 137/65 (89) 98 08/09/20 11:07 3 Capillary Refill : General Appearance: No Apparent Distress, WD/WN, Chronically ill, Obese HEENT: PERRL/EOMI, Normal ENT Inspection, Pharynx Normal Neck: Full Range of Motion, Normal Inspection, Non Tender, Supple, Carotid Bruit Respiratory: Chest Non Tender, Lungs Clear, No Accessory Muscle Use, No Respiratory Distress, Decreased Breath Sounds Cardiovascular: No Edema, No Gallop, No JVD, No Murmur, Normal Peripheral Pulses, Irregularly Irregular Gastrointestinal: Normal Bowel Sounds, No Organomegaly, No Pulsatile Mass, Non Tender, Soft Back: Normal Inspection, No CVA Tenderness, No Vertebral Tenderness Extremity: Normal Capillary Refill, Normal Inspection, Normal Range of Motion, Non Tender, No Calf Tenderness, No Pedal Edema Neurologic/Psychiatric: Alert, Oriented x3, No Motor/Sensory Deficits, Normal Mood/Affect, Abnormal Gait, Motor Weakness (generalized lower extremities 3/5) Skin: Normal Color, Warm/Dry Lymphatic: No Adenopathy Results/Procedures Lab Patient resulted labs reviewed. FIM Transfers Therapy Code Descriptions/Definitions Functional [place] Measure: 0=Not Assessed/NA 4=Minimal Assistance 1=Total Assistance 5=Supervision or Setup 2=Maximal Assistance 6=Modified [place] 3=Moderate Assistance 7=Complete IndependenceSCALE: Activities may be completed with or without assistive devices. 0-Edlrceplmm-ynitrgw completes the activity by him/herself with no assistance from a helper. 5-Set-up or Clean-up Assistance-helper sets up or cleans up; patient completes activity. [place] assists only prior to or following the activity. 4-Supervision or Touching Assistance-helper provides verbal cues and/or touching/steadying and/or contact guard assistance as patient completes activity. Assistance may be provided throughout the activity or intermittently. 3-Partial/Moderate Assistance-helper does LESS THAN HALF the effort. [place] lifts, holds or supports trunk or limbs, but provides less than half the effort. 2-Substantial/Maximal Assistance-helper does MORE THAN HALF the effort. [place] lifts or holds trunk or limbs and provides more than half the effort. 8-Kstcxavsq-iphlqd does ALL the effort. Patient does none of the effort to complete the activity. Or, the assistance of 2 or more helpers is required for the patient to complete the activity. If activity was not attempted, code reason: 7-Patient Refused. 9-Not Applicable-not attempted and the patient did not perform the activity before the current illness, exacerbation or injury. 10-Not Attempted due to Environmental Limitations-(lack of equipment, weather restraints, etc.). 88-Not Attempted due to Medical Conditions or Safety Concerns. Roll Left to Right (QC): 3 Sit to Lying (QC): 3 Sit to Stand (QC): 4 Chair/Oqk-ku-Dqari Xfer(QC): 3 Car Transfer (QC): 3 Gait Training Does the Patient Walk?: Yes Distance: 150' x2 Walk 10 feet (QC): 4 Walk 50 ft with 2 Turns(QC): 4 Walk 150 ft (QC): 4 Walking 10ft/uneven surface-QC: 3 Gait Persons Needed: 1 Gait Assistive Device: FWW Wheelchair Training Does the Pt Use a Wheelchair?: Yes Wheel 50 ft with 2 turns (QC): 4 Wheel 150 ft (QC): 9 Stair Training 1 Step (curb) (QC): 3 4 Steps (QC): 88 12 Steps (QC): 88 Balance Picking up an Object (QC): 88 ADL-Treatment Eating (QC): 6 Oral Hygiene (QC): 6 Bathing Location: L Arm, R Arm, L Upper Leg, R Upper Leg, Chest, Abdomen Shower/Bathe Self (QC): 3 (Mod A.) Upper Body Dressing (QC): 5 Lower Body Dressing (QC): 2 On/Off Footwear (QC): 2 Toileting Hygiene (QC): 3 Toilet Transfer (QC): 3 Assessment/Plan Assessment and Plan Assess & Plan/Chief Complaint Assessment: COPD myopathy Acute on chronic respiratory failure Chronic O2 dependence Debility following PNA and UTI PHTN Edema chronic Chronic right foot drop uses AFO Edema chronic HTN OAB Plan: Monitor BP OAC Appreciate Cardiology IRF protocol 08/07/20: Monitor closely Abx Pain management O2 08/08/20: Monitor closely BP management O2 maintained 08/09/20: Monitor dyspnea O2 Monitor for falls 08/10/20: Monitor BP Appreciate Dr Brower (1) Myopathy (2) COPD (chronic obstructive pulmonary disease) (3) Afib Status: Acute (4) HLD (hyperlipidemia) Status: Chronic (5) HTN (hypertension) Status: Chronic (6) Obesity Status: Chronic (7) Acute on chronic respiratory failure with hypoxia Status: Acute (8) PNA (pneumonia) Status: Acute (9) Foot drop, right (10) Essential (primary) hypertension (11) Edema (12) Lower lobe pneumonia Status: Acute (13) Oxygen dependent (14) Overactive bladder (15) Glaucoma (16) Debility (17) Hypoxemia RIKA BERUMEN DO Aug 10, 2020 14:20
[2020-08-10 17:08] VITALS: BP 137/65
[2020-08-10] MEDS: LATANOPROST 0.005% (XALATAN) OPHTH SOLN 2.5 ML OU SCH (20:44)
[2020-08-11 05:51] LABS: BASOPHILS # (AUTO) 0.1 10^3/uL (0.0-0.1); BASOPHILS % (AUTO) 1 % (0-10); EOSINOPHILS # (AUTO) 0.2 10^3/uL (0.0-0.3); EOSINOPHILS % (AUTO) 1 % (0-10); HEMATOCRIT 36 % (35-52); HEMOGLOBIN 11.4 g/dL (11.5-16.0); LYMPHOCYTES # (AUTO) 2.2 10^3/uL (1.0-4.0); LYMPHOCYTES % (AUTO) 13 % (12-44); MEAN CORPUSCULAR HEMOGLOBIN 29 pg (25-34); MEAN CORPUSCULAR HGB CONC 32 g/dL (32-36); MEAN CORPUSCULAR VOLUME 90 fL (80-99); MEAN PLATELET VOLUME 8.8 fL (9.0-12.2); MONOCYTES # (AUTO) 1.4 10^3/uL (0.0-1.0); MONOCYTES % (AUTO) 8 % (0-12); NEUTROPHILS # (AUTO) 12.6 10^3/uL (1.8-7.8); NEUTROPHILS % (AUTO) 72 % (42-75); PLATELET COUNT 400 10^3/uL (130-400); WHITE BLOOD COUNT 17.5 10^3/uL (4.3-11.0)
[2020-08-11 06:02] LABS: ALBUMIN 3.4 GM/DL (3.2-4.5); CHLORIDE 101 MMOL/L (98-107); SODIUM 138 MMOL/L (135-145)
[2020-08-11 06:04] LABS: CALCIUM 8.6 MG/DL (8.5-10.1)
[2020-08-11 06:05] LABS: GLUCOSE 86 MG/DL (70-105); TOTAL PROTEIN 6.5 GM/DL (6.4-8.2)
[2020-08-11 06:06] LABS: CARBON DIOXIDE 26 MMOL/L (21-32)
[2020-08-11 06:07] LABS: BILIRUBIN,TOTAL 0.7 MG/DL (0.1-1.0)
[2020-08-11 06:08] LABS: ALKALINE PHOSPHATASE 80 U/L (40-136); CREATININE SERUM 0.84 MG/DL (0.60-1.30); GFR ESTIMATED > 60
[2020-08-11 06:09] LABS: BUN/CREATININE RATIO 27
[2020-08-11 06:11] LABS: ALANINE AMINOTRANSFERASE 34 U/L (0-55); MAGNESIUM 2.6 MG/DL (1.6-2.4)
[2020-08-11] MEDS: predniSONE 20 MG TAB PO SCH (06:15)
[2020-08-11] MEDS: CATHETER FLUSH 10 ML SYR IV SCH ×3 (06:15→19:31)
[2020-08-11] MEDS: KCL 20 MEQ TAB (K-DUR) PO SCH (06:16)
[2020-08-11 06:24] LABS: BAND NEUTROPHILS 5 %; EOSINOPHILS % (MANUAL) 1 %; LYMPHOCYTES % (MANUAL) 21 %; MONOCYTES % (MANUAL) 5 %; NEUTROPHILS % (MANUAL) 68 %
[2020-08-11 06:25] LABS: RBC MORPH NORMAL
[2020-08-11 06:45] VITALS: BP 183/81
[2020-08-11] MEDS: RT-ALBUTEROL INHALER HFA (VENTOLIN HFA) 18 GM IH SCH ×2 (07:11→20:53)
--- NOTE | 2020-08-11 09:01 | Occupational Ther Daily Note ---
OT Current Status-Daily Note Subjective Pt alert, lying in bed. Pt agrees to therapy. No c/o pain. Mental Status/Objective Patient Orientation: Person, Place, Time, Situation Attachments: Oxygen ADL-Treatment Pt declines shower, agrees to sponge bath. Set up for dressing. B lower legs bathed and wrappings applied prior to sponge bathe. Lymphedema massage and wrapping completed prior to bathing. Min A from lower surface for sit to stand. Pt ambulated to toilet and completed transfer independently using BSC to higher toilet surface, 2x's during therapy. Pt completed toileting independently. Pt completed bathing sitting at sink. Cleansed all areas except lower legs due to edema wrapping. Pt able to dress upper/lower body by self after set up. After session, pt sitting in recliner with call light/phone in reach. All needs met in room. Therapy Code Descriptions/Definitions Functional [place] Measure: 0=Not Assessed/NA 4=Minimal Assistance 1=Total Assistance 5=Supervision or Setup 2=Maximal Assistance 6=Modified [place] 3=Moderate Assistance 7=Complete IndependenceSCALE: Activities may be completed with or without assistive devices. 5-Nnvvvujgfd-hjeyytw completes the activity by him/herself with no assistance from a helper. 5-Set-up or Clean-up Assistance-helper sets up or cleans up; patient completes activity. [place] assists only prior to or following the activity. 4-Supervision or Touching Assistance-helper provides verbal cues and/or touching/steadying and/or contact guard assistance as patient completes activity. Assistance may be provided throughout the activity or intermittently. 3-Partial/Moderate Assistance-helper does LESS THAN HALF the effort. [place] lifts, holds or supports trunk or limbs, but provides less than half the effort. 2-Substantial/Maximal Assistance-helper does MORE THAN HALF the effort. [place] lifts or holds trunk or limbs and provides more than half the effort. 5-Kglsxrmga-lahqis does ALL the effort. Patient does none of the effort to complete the activity. Or, the assistance of 2 or more helpers is required for the patient to complete the activity. If activity was not attempted, code reason: 7-Patient Refused. 9-Not Applicable-not attempted and the patient did not perform the activity before the current illness, exacerbation or injury. 10-Not Attempted due to Environmental Limitations-(lack of equipment, weather restraints, etc.). 88-Not Attempted due to Medical Conditions or Safety Concerns. Eating (QC): 6 (Independent) Oral Hygiene (QC): 6 (Sitting at sink) Upper Body Dressing (QC): 5 Lower Body Dressing (QC): 5 Toileting Hygiene (QC): 6 Toilet Transfer (QC): 6 OT Short Term Goals Short Term Goals Time Frame: Aug 15, 2020 Toileting hygiene: 4 Upper body dressin Lower body dressin Putting on/taking off footwear: 5 OT Mri Technician Goals Mri Technician Goals Time Frame: Aug 29, 2020 Eating (QC): 6 Oral Hygiene (QC): 6 Toileting Hygiene (QC): 6 Shower/Bathe Self (QC): 4 Upper Body Dressing (QC): 6 Lower Body Dressing (QC): 6 On/Off Footwear (QC): 6 Additional Goals: 1-Demonstrate ADL Tasks, 2-Verbalize Understanding, 3-Improve Strength/Chrissy 1=Demonstrate adherence to instructed precautions during ADL tasks. 2=Patient will verbalize/demonstrate understanding of assistive devices/modifications for ADL. 3=Patient will improve strength/tolerance for activity to enable patient to pe rform ADL's. OT Education/Plan Problem List/Assessment Assessment: Decreased Activ Tolerance, Impaired Self-Care Skills Discharge Recommendations Plan/Recommendations: Continue POC Treatment Plan/Plan of Care Patient would benefit from OT for education, treatment and training to promote independence in ADL's, mobility, safety and/or upper extremity function for ADL's. Plan of Care: ADL Retraining, Functional Mobility, Group Exercise/Act as Ind, UE Funct Exercise/Act Treatment Duration: Aug 29, 2020 Frequency: At least 5 of 7 days/Wk (IRF) Estimated Hrs Per Day: 1.5 hours per day Rehab Potential: Good Time/GCodes Start Time: 07:15 Stop Time: 08:45 Total Time Billed (hr/min): 90 Billed Treatment Time 1 visit-ADL 6 (90 min) FLORENCIO MARSHALL Aug 11, 2020 09:01
[2020-08-11 09:02] VITALS: BP 135/62
[2020-08-11] MEDS: FUROSEMIDE 40 MG (LASIX) TAB PO SCH (09:07)
[2020-08-11] MEDS: CARVEDILOL 12.5 MG (COREG) TABLET PO SCH ×2 (09:07→17:43)
[2020-08-11] MEDS: amLODIPine 5 MG (NORVASC) TAB PO SCH (09:07)
[2020-08-11] MEDS: RIVAROXABAN 15 MG TABLET (XARELTO) PO SCH (09:07)
[2020-08-11] MEDS: TIMOLOL MALEATE 0.5% 5 ML (TIMOPTIC) BTL OU SCH (09:12)
[2020-08-11] MEDS: DOCUSATE SODIUM 100 MG (COLACE) CAP PO SCH ×2 (09:13→20:55)
[2020-08-11] MEDS: SENNA W/DOCUSATE (SENOKOT S) TABLET PO SCH ×2 (09:14→20:55)
[2020-08-11] MEDS: polyethylene glycoL POWDER 17 GM (MIRALAX) PACK PO SCH ×2 (09:14→20:55)
--- NOTE | 2020-08-11 10:30 | PM&R Progress Note ---
Subjective HPI/CC On Admission Date Seen by Provider: Aug 11, 2020 Time Seen by Provider: 10:30 Subjective/Events-last exam 08/11/20: Pt doing pretty well WBC 17,000 but lactic acid and Procalcitonin was normal Chest CXR ordered but not completed yet Elevated BP managed by Dr. Brower Wrapped her legs B/L O2 sat 95% on oxygen when she is exerting herself Using her IS 08/10/20: Patient doing well Dr Brower started Norvasc 5mg for elevated BP Buttocks are sore so placed pad in chair No laxatives needed Potassium changed Lasix changed Increased transfer ability 08/09/20: Patient doing well No complaints IV abx completed Holding laxatives due to loose stools 08/08/20: Patient feels good No pain reported O2 maintained Checked meds and labs 08/07/20: Patient doing well Settling in well in IRF No pain reported BM today and a bit loose Checked meds and labs Review of Systems Pulmonary: Dyspnea Focused Exam Lactate Level 08/11/20 07:19: Lactic Acid Level 1.20 Lactic Acid Level Objective Exam Vital Signs Vital Signs Date Time Temp Pulse Resp B/P (MAP) Pulse Ox O2 Delivery O2 Flow Rate FiO2 08/11/20 20:00 Nasal Cannula 3.00 08/11/20 17:39 36.2 61 20 157/70 (99) 97 08/09/20 11:07 3 Capillary Refill : General Appearance: No Apparent Distress, WD/WN, Chronically ill, Obese HEENT: PERRL/EOMI, Normal ENT Inspection, Pharynx Normal Neck: Full Range of Motion, Normal Inspection, Non Tender, Supple, Carotid Bruit Respiratory: Chest Non Tender, Lungs Clear, No Accessory Muscle Use, No Respiratory Distress, Decreased Breath Sounds Cardiovascular: No Edema, No Gallop, No JVD, No Murmur, Normal Peripheral Pulses, Irregularly Irregular Gastrointestinal: Normal Bowel Sounds, No Organomegaly, No Pulsatile Mass, Non Tender, Soft Back: Normal Inspection, No CVA Tenderness, No Vertebral Tenderness Extremity: Normal Capillary Refill, Normal Inspection, Normal Range of Motion, Non Tender, No Calf Tenderness, No Pedal Edema Neurologic/Psychiatric: Alert, Oriented x3, No Motor/Sensory Deficits, Normal Mood/Affect, Abnormal Gait, Motor Weakness (generalized lower extremities 3/5) Skin: Normal Color, Warm/Dry Lymphatic: No Adenopathy Results/Procedures Lab Patient resulted labs reviewed. FIM Transfers Therapy Code Descriptions/Definitions Functional [place] Measure: 0=Not Assessed/NA 4=Minimal Assistance 1=Total Assistance 5=Supervision or Setup 2=Maximal Assistance 6=Modified [place] 3=Moderate Assistance 7=Complete IndependenceSCALE: Activities may be completed with or without assistive devices. 7-Bpvxdaniul-hydoiph completes the activity by him/herself with no assistance from a helper. 5-Set-up or Clean-up Assistance-helper sets up or cleans up; patient completes activity. [place] assists only prior to or following the activity. 4-Supervision or Touching Assistance-helper provides verbal cues and/or touching/steadying and/or contact guard assistance as patient completes activity. Assistance may be provided throughout the activity or intermittently. 3-Partial/Moderate Assistance-helper does LESS THAN HALF the effort. [place] lifts, holds or supports trunk or limbs, but provides less than half the effort. 2-Substantial/Maximal Assistance-helper does MORE THAN HALF the effort. [place] lifts or holds trunk or limbs and provides more than half the effort. 1-Hlbxbbjnd-xfmpcb does ALL the effort. Patient does none of the effort to complete the activity. Or, the assistance of 2 or more helpers is required for the patient to complete the activity. If activity was not attempted, code reason: 7-Patient Refused. 9-Not Applicable-not attempted and the patient did not perform the activity before the current illness, exacerbation or injury. 10-Not Attempted due to Environmental Limitations-(lack of equipment, weather restraints, etc.). 88-Not Attempted due to Medical Conditions or Safety Concerns. Roll Left to Right (QC): 3 Sit to Lying (QC): 3 Sit to Stand (QC): 4 Chair/Rhb-ur-Zpatl Xfer(QC): 3 Car Transfer (QC): 3 Gait Training Does the Patient Walk?: Yes Distance: 150' x2 Walk 10 feet (QC): 4 Walk 50 ft with 2 Turns(QC): 4 Walk 150 ft (QC): 4 Walking 10ft/uneven surface-QC: 3 Gait Persons Needed: 1 Gait Assistive Device: FWW Wheelchair Training Does the Pt Use a Wheelchair?: Yes Wheel 50 ft with 2 turns (QC): 4 Wheel 150 ft (QC): 9 Stair Training 1 Step (curb) (QC): 3 4 Steps (QC): 88 12 Steps (QC): 88 Balance Picking up an Object (QC): 88 ADL-Treatment Eating (QC): 6 Oral Hygiene (QC): 6 Bathing Location: L Arm, R Arm, L Upper Leg, R Upper Leg, Chest, Abdomen Shower/Bathe Self (QC): 3 (Mod A.) Upper Body Dressing (QC): 5 Lower Body Dressing (QC): 2 On/Off Footwear (QC): 2 Toileting Hygiene (QC): 3 Toilet Transfer (QC): 3 Assessment/Plan Assessment and Plan Assess & Plan/Chief Complaint Assessment: COPD myopathy Acute on chronic respiratory failure Chronic O2 dependence Debility following PNA and UTI PHTN Edema chronic Chronic right foot drop uses AFO Edema chronic HTN OAB Plan: Monitor BP OAC Appreciate Cardiology IRF protocol 08/07/20: Monitor closely Abx Pain management O2 08/08/20: Monitor closely BP management O2 maintained 08/09/20: Monitor dyspnea O2 Monitor for falls 08/10/20: Monitor BP Appreciate Dr Brower 08/11/20: Monitor O2 Monitor wbc (1) Myopathy (2) COPD (chronic obstructive pulmonary disease) (3) Afib Status: Acute (4) HLD (hyperlipidemia) Status: Chronic (5) HTN (hypertension) Status: Chronic (6) Obesity Status: Chronic (7) Acute on chronic respiratory failure with hypoxia Status: Acute (8) PNA (pneumonia) Status: Acute (9) Foot drop, right (10) Essential (primary) hypertension (11) Edema (12) Lower lobe pneumonia Status: Acute (13) Oxygen dependent (14) Overactive bladder (15) Glaucoma (16) Debility (17) Hypoxemia RIKA BERUMEN DO Aug 11, 2020 10:30
--- NOTE | 2020-08-11 10:31 | Physical Therapy Daily Note ---
PT Daily Note-Current Subjective Pt. agrees to Rx. Shares that she is fatigued after Rx but feels she is stronger and improving. Pain Location: No Pain Reported Appearance pt. does not c/o SOB but has notable dyspnea, O2 at 3L, sats at 98% throughout Rx Mental Status Patient Orientation: Normal For Age Attachments: Oxygen (3L) Transfers SCALE: Activities may be completed with or without assistive devices. 9-Uotbpmvqvv-nzmbtik completes the activity by him/herself with no assistance from a helper. 5-Set-up or Clean-up Assistance-helper sets up or cleans up; patient completes activity. [place] assists only prior to or following the activity. 4-Supervision or Touching Assistance-helper provides verbal cues and/or touching/steadying and/or contact guard assistance as patient completes activity. Assistance may be provided throughout the activity or intermittently. 3-Partial/Moderate Assistance-helper does LESS THAN HALF the effort. [place] lifts, holds or supports trunk or limbs, but provides less than half the effort. 2-Substantial/Maximal Assistance-helper does MORE THAN HALF the effort. [place] lifts or holds trunk or limbs and provides more than half the effort. 0-Eofiestuq-ykdmxc does ALL the effort. Patient does none of the effort to complete the activity. Or, the assistance of 2 or more helpers is required for the patient to complete the activity. If activity was not attempted, code reason: 7-Patient Refused. 9-Not Applicable-not attempted and the patient did not perform the activity before the current illness, exacerbation or injury. 10-Not Attempted due to Environmental Limitations-(lack of equipment, weather restraints, etc.). 88-Not Attempted due to Medical Conditions or Safety Concerns. Roll Left & Right (QC): 5 Sit to Stand (QC): 4 Chair/Yur-mq-Oyblp Xfer(QC): 4 Toilet Transfer (QC): 4 Weight Bearing Full Weight Bearing Full Weight Bearing Gait Training Does the Patient Walk?: Yes Walk 10 feet (QC): 4 Walk 50 ft with 2 Turns(QC): 4 Gait Persons Needed: 1 Gait Assistive Device: FWW pt. walked 75 to 100 ft x 5-6 trials, fatigue and SOB bring on the need for seated rest breaks, instructed in safety during gait with use of extended tubing, which is difficult for pt. to let go of FWW for even a brief time to manage tube as she wt bears heavily on it to conserve energy Exercises Seated Therapy Exercises: Ankle pumps, Sit to stand, Long arc quads, Hip flexion, Hip abd/add Seated Reps: 20 NuStep Minutes: 13 NuStep Workload: 3 Treatments toileting , change of brief, stance at sink for handwashing and dentures all CGA Assessment Current Status: Good Progress fatigue, dyspnea , needs for frequent seated rest breaks, sats >90% on 3L O2 PT Short Term Goals Short Term Goals Time Frame: Aug 20, 2020 Lying to sitting on side of be: 4 Sit to stand: 4 Chair/iju-ht-giami transfer: 4 Walk 150 feet: 4 PT Lobster Fisherman Goals L[place]ster Fisherman Goals PT [place] Fisherman Goals Time Frame: Aug 27, 2020 Roll Left & Right (QC): 6 Sit to Lying (QC): 6 Lying-Sitting on Side/Bed(QC): 6 Sit to Stand (QC): 6 Chair/Qmd-ga-Vtwqb Xfer(QC): 6 Toilet Transfer (QC): 6 Car Transfer (QC): 5 Does the Patient Walk: Yes Walk 10 feet (QC): 6 Walk 50ft with 2 Turns (QC): 6 Walk 150 ft (QC): 6 Walking 10ft on Uneven Surface: 4 1 Step (curb) (QC): 4 4 Steps (QC): 4 12 Steps (QC): 9 Picking up an Object (QC): 9 Wheel 50 feet with 2 turns (QC: 9 Wheel 150 feet: 9 PT Plan Treatment/Plan Treatment Plan: Continue Plan of Care Treatment Plan: Bed Mobility, Education, Functional Activity Chrissy, Functional Strength, Group Therapy, Gait, Safety, Therapeutic Exercise, Transfers Treatment Duration: Aug 27, 2020 Frequency: At least 5 of 7 days/Wk (IRF) Estimated Hrs Per Day: 1.5 hours per day Patient and/or Family Agrees t: Yes Safety Risks/Education Patient Education: Gait Training, Transfer Techniques, Correct Positioning, Disease Process, Safety Issues Teaching Methods: Demonstration, Discussion Response to Teaching: Verbalize Understanding, Return Demonstration, Reinforcement Needed Time/GCodes Time In: 900 Time Out: 1030 Total Billed Treatment Time: 90 Total Billed Treatment 1,EX35m,GT25m,FA30m DERIAN MERCADO PTA Aug 11, 2020 10:30
--- NOTE | 2020-08-11 10:41 | Progress Note - Cardiology ---
Cardiology SOAP Progress Note Objective: I&O/Vital Signs 08/13/20 08/13/20 05:03 09:00 Temp 36.2 Pulse 68 Resp 20 B/P (MAP) 144/65 (91) Pulse Ox 94 94 O2 Delivery High Flow N/C Nasal Cannula O2 Flow Rate 3.00 3.00 08/13/20 00:00 Intake Total 1100 ml Balance 1100 ml Constitutional: AAO x 3, well-developed, well-nourished Respiratory: No accessory muscle use; other (good, bilateral air entry) Cardiovascular: regular rate-rhythm, S1 and S2, systolic murmur (soft DAPHNE at card base) Gastrointestional: No tender; soft; No guarding, No rebound; audible bowel sounds Extremities: swelling (mod, bilateral, pitting leg edema); No clubbing, No cyanosis Neurologic/Psychiatric: oriented x 3, other (moves all limbs equally) Results/Procedures: Labs A/P: Assessment: Uncontrolled hypertension Ac resp insuff due to pneumonia, managed by primary care team. Acute diastolic CHF, currently clinically compensated - echocardiogram done on August 04, 2020 showing normal left ventricular systolic function, ejection fraction 60 percent, mild mitral regurgitation, mild aortic stenosis, pulmonary artery pressure of 40-45 mmHg Chronic, bilateral leg edema, likely due to venous insuff Sinus node dysfunction, history of permanent pacemaker, alternating between sinus rhythm and atrial paced rhythm Paroxysmal atrial fibrillation, on rivaroxaban CKD-3 Hyperlipidemia Plan: * BP better controlled this morning * Continue current regimen * Adjust medications as indicated * Monitor labs * Replace electrolytes as indicated YENIFER YANG Aug 11, 2020 10:41
--- NOTE | 2020-08-11 15:06 | Diagnostic Imaging Report ---
INDICATION: Pneumonia. COMPARISON: 08/05/2020. FINDINGS: Frontal and lateral radiographic views of the chest were obtained and demonstrate overall improved aeration of both bases. Mild bibasilar pleural effusions persist. There is no pneumothorax. The cardiac silhouette and pulmonary vasculature are within normal limits. A left-sided dual-lead pacemaker is noted. The osseous structures show no gross acute abnormalities. IMPRESSION: Overall improved aeration of both lung bases but with persistent small bibasilar effusions. Dictated by: Dictated on workstation # [id number]
[2020-08-11 17:39] VITALS: BP 157/70
--- NOTE | 2020-08-11 18:45 | Progress Note - Cardiology ---
Cardiology SOAP Progress Note Subjective: Gen malaise and weakness Shortness of breath with activity No cp or palp or syncope No n/v/d Objective: I&O/Vital Signs 08/11/20 08/11/20 08/11/20 08/11/20 06:45 07:11 08:36 09:02 Temp 36.6 Pulse 63 61 Resp 20 20 B/P (MAP) 183/81 (115) 135/62 (86) Pulse Ox 98 93 96 O2 Delivery High Flow N/C Nasal Cannula Nasal Cannula High Flow N/C O2 Flow Rate 3.00 3.00 3.00 3.00 08/11/20 17:39 Temp 36.2 Pulse 61 Resp 20 B/P (MAP) 157/70 (99) Pulse Ox 97 O2 Delivery High Flow N/C O2 Flow Rate 3.00 08/11/20 00:00 Intake Total 1840 ml Balance 1840 ml Constitutional: AAO x 3, well-developed, well-nourished Respiratory: No accessory muscle use; other (good, bilateral air entry) Cardiovascular: regular rate-rhythm, S1 and S2, systolic murmur (soft DAHPNE at card base) Gastrointestional: No tender; soft; No guarding, No rebound; audible bowel sounds Extremities: swelling (mod, bilateral, pitting leg edema); No clubbing, No cyanosis Neurologic/Psychiatric: oriented x 3, other (moves all limbs equally) Results/Procedures: Labs Laboratory Tests 08/11/20 05:45: White Blood Count 17.5H, Red Blood Count 3.93, Hemoglobin 11.4L, Hematocrit 36, Mean Corpuscular Volume 90, Mean Corpuscular Hemoglobin 29, Mean Corpuscular Hemoglobin Concent 32, Red Cell Distribution Width 13.8, Platelet Count 400, Mean Platelet Volume 8.8L, Immature Granulocyte % (Auto) 6, Neutrophils (%) (Auto) 72, Lymphocytes (%) (Auto) 13, Monocytes (%) (Auto) 8, Eosinophils (%) (Auto) 1, Basophils (%) (Auto) 1, Neutrophils # (Auto) 12.6H, Lymphocytes # (Auto) 2.2, Monocytes # (Auto) 1.4H, Eosinophils # (Auto) 0.2, Basophils # (Auto) 0.1, Immature Granulocyte # (Auto) 1.0H, Neutrophils % (Manual) 68, Lymphocytes % (Manual) 21, Monocytes % (Manual) 5, Eosinophils % (Manual) 1, Band Neutrophils 5, Blood Morphology Comment NORMAL, Sodium Level 138, Potassium Level 4.0, Chloride Level 101, Carbon Dioxide Level 26, Anion Gap 11, Blood Urea Nitrogen 23H, Creatinine 0.84, Estimat Glomerular Filtration Rate > 60, BUN/Creatinine Ratio 27, Glucose Level 86, Calcium Level 8.6, Corrected Calcium 9.1, Magnesium Level 2.6H, Total Bilirubin 0.7, Aspartate Amino Transf (AST/SGOT) 16, Alanine Aminotransferase (ALT/SGPT) 34, Alkaline Phosphatase 80, Total Protein 6.5, Albumin 3.4, Procalcitonin 0.02 08/11/20 07:19: Lactic Acid Level 1.20 A/P: Assessment: Uncontrolled hypertension Ac resp insuff due to pneumonia, managed by primary care team. Acute diastolic CHF, currently clinically compensated - echocardiogram done on August 04, 2020 showing normal left ventricular systolic function, ejection fraction 60 percent, mild mitral regurgitation, mild aortic stenosis, pulmonary artery pressure of 40-45 mmHg Chronic, bilateral leg edema, likely due to venous insuff Sinus node dysfunction, history of permanent pacemaker, alternating between sinus rhythm and atrial paced rhythm Paroxysmal atrial fibrillation, on rivaroxaban CKD-3 Hyperlipidemia Plan: * BP better controlled this morning * Continue current regimen * Adjust medications as indicated * Monitor labs BRIE LLANOS MD FACP [facility] Aug 11, 2020 18:45
[2020-08-11] MEDS: LATANOPROST 0.005% (XALATAN) OPHTH SOLN 2.5 ML OU SCH (20:54)
[2020-08-11] MEDS: MELATONIN 3 MG TABLET PO PRN (20:55)
[2020-08-12] MEDS: CATHETER FLUSH 10 ML SYR IV SCH ×2 (05:38→14:44)
[2020-08-12] MEDS: KCL 20 MEQ TAB (K-DUR) PO SCH (06:20)
[2020-08-12] MEDS: predniSONE 20 MG TAB PO SCH (06:21)
[2020-08-12 07:03] VITALS: BP 187/80
[2020-08-12] MEDS: RT-ALBUTEROL INHALER HFA (VENTOLIN HFA) 18 GM IH SCH ×2 (07:26→21:33)
[2020-08-12 08:00] VITALS: BP 163/72
[2020-08-12] MEDS: CARVEDILOL 12.5 MG (COREG) TABLET PO SCH ×2 (08:33→18:09)
[2020-08-12] MEDS: FUROSEMIDE 40 MG (LASIX) TAB PO SCH (08:33)
[2020-08-12] MEDS: TIMOLOL MALEATE 0.5% 5 ML (TIMOPTIC) BTL OU SCH (08:33)
[2020-08-12] MEDS: amLODIPine 5 MG (NORVASC) TAB PO SCH (08:33)
[2020-08-12] MEDS: RIVAROXABAN 15 MG TABLET (XARELTO) PO SCH (08:33)
[2020-08-12] MEDS: DOCUSATE SODIUM 100 MG (COLACE) CAP PO SCH ×2 (08:40→19:45)
[2020-08-12] MEDS: polyethylene glycoL POWDER 17 GM (MIRALAX) PACK PO SCH ×2 (08:41→19:45)
[2020-08-12] MEDS: SENNA W/DOCUSATE (SENOKOT S) TABLET PO SCH ×2 (08:41→19:45)
--- NOTE | 2020-08-12 09:09 | PM&R Progress Note ---
Subjective HPI/CC On Admission Date Seen by Provider: Aug 12, 2020 Time Seen by Provider: 09:15 Subjective/Events-last exam 08/12/20: Pt having no issues BP still slightly high Bowels moved today Checked meds and labs 08/11/20: Pt doing pretty well WBC 17,000 but lactic acid and Procalcitonin was normal Chest CXR ordered but not completed yet Elevated BP managed by Dr. Brower Wrapped her legs B/L O2 sat 95% on oxygen when she is exerting herself Using her IS 08/10/20: Patient doing well Dr Brower started Norvasc 5mg for elevated BP Buttocks are sore so placed pad in chair No laxatives needed Potassium changed Lasix changed Increased transfer ability 08/09/20: Patient doing well No complaints IV abx completed Holding laxatives due to loose stools 08/08/20: Patient feels good No pain reported O2 maintained Checked meds and labs 08/07/20: Patient doing well Settling in well in IRF No pain reported BM today and a bit loose Checked meds and labs Review of Systems General: Fatigue, Malaise Pulmonary: Dyspnea Focused Exam Lactate Level 08/11/20 07:19: Lactic Acid Level 1.20 Objective Exam Vital Signs Vital Signs Date Time Temp Pulse Resp B/P (MAP) Pulse Ox O2 Delivery O2 Flow Rate FiO2 08/13/20 05:03 36.2 68 20 144/65 (91) 94 High Flow N/C 3.00 08/09/20 11:07 3 Capillary Refill : General Appearance: No Apparent Distress, WD/WN, Chronically ill, Obese HEENT: PERRL/EOMI, Normal ENT Inspection, Pharynx Normal Neck: Full Range of Motion, Normal Inspection, Non Tender, Supple, Carotid Bruit Respiratory: Chest Non Tender, Lungs Clear, No Accessory Muscle Use, No Respiratory Distress, Decreased Breath Sounds Cardiovascular: No Edema, No Gallop, No JVD, No Murmur, Normal Peripheral Pulses, Irregularly Irregular Gastrointestinal: Normal Bowel Sounds, No Organomegaly, No Pulsatile Mass, Non Tender, Soft Back: Normal Inspection, No CVA Tenderness, No Vertebral Tenderness Extremity: Normal Capillary Refill, Normal Inspection, Normal Range of Motion, Non Tender, No Calf Tenderness, No Pedal Edema Neurologic/Psychiatric: Alert, Oriented x3, No Motor/Sensory Deficits, Normal Mood/Affect, Abnormal Gait, Motor Weakness (generalized lower extremities 3/5) Skin: Normal Color, Warm/Dry Lymphatic: No Adenopathy Results/Procedures Lab Patient resulted labs reviewed. FIM Transfers Therapy Code Descriptions/Definitions Functional [place] Measure: 0=Not Assessed/NA 4=Minimal Assistance 1=Total Assistance 5=Supervision or Setup 2=Maximal Assistance 6=Modified [place] 3=Moderate Assistance 7=Complete IndependenceSCALE: Activities may be completed with or without assistive devices. 9-Qllqwwlmhi-yxxhlgj completes the activity by him/herself with no assistance from a helper. 5-Set-up or Clean-up Assistance-helper sets up or cleans up; patient completes activity. [place] assists only prior to or following the activity. 4-Supervision or Touching Assistance-helper provides verbal cues and/or touc ab/steadying and/or contact guard assistance as patient completes activity. Assistance may be provided throughout the activity or intermittently. 3-Partial/Moderate Assistance-helper does LESS THAN HALF the effort. [place] lifts, holds or supports trunk or limbs, but provides less than half the effort. 2-Substantial/Maximal Assistance-helper does MORE THAN HALF the effort. [place] lifts or holds trunk or limbs and provides more than half the effort. 4-Rlnwqzyfl-dyzrif does ALL the effort. Patient does none of the effort to complete the activity. Or, the assistance of 2 or more helpers is required for the patient to complete the activity. If activity was not attempted, code reason: 7-Patient Refused. 9-Not Applicable-not attempted and the patient did not perform the activity before the current illness, exacerbation or injury. 10-Not Attempted due to Environmental Limitations-(lack of equipment, weather restraints, etc.). 88-Not Attempted due to Medical Conditions or Safety Concerns. Roll Left to Right (QC): 5 Sit to Lying (QC): 3 Sit to Stand (QC): 4 Chair/Kpf-pf-Sckkw Xfer(QC): 4 Car Transfer (QC): 3 Gait Training Does the Patient Walk?: Yes Distance: 150' x2 Walk 10 feet (QC): 4 Walk 50 ft with 2 Turns(QC): 4 Walk 150 ft (QC): 4 Walking 10ft/uneven surface-QC: 3 Gait Persons Needed: 1 Gait Assistive Device: FWW Wheelchair Training Does the Pt Use a Wheelchair?: Yes Wheel 50 ft with 2 turns (QC): 4 Wheel 150 ft (QC): 9 Stair Training 1 Step (curb) (QC): 3 4 Steps (QC): 88 12 Steps (QC): 88 Balance Picking up an Object (QC): 88 ADL-Treatment Eating (QC): 6 (Independent) Oral Hygiene (QC): 6 (Sitting at sink) Bathing Location: L Arm, R Arm, L Upper Leg, R Upper Leg, Chest, Abdomen Shower/Bathe Self (QC): 3 (Mod A.) Upper Body Dressing (QC): 5 Lower Body Dressing (QC): 5 On/Off Footwear (QC): 2 Toileting Hygiene (QC): 6 Toilet Transfer (QC): 6 Assessment/Plan Assessment and Plan Assess & Plan/Chief Complaint Assessment: COPD myopathy Acute on chronic respiratory failure Chronic O2 dependence Debility following PNA and UTI PHTN Edema chronic Chronic right foot drop uses AFO Edema chronic HTN OAB Plan: Monitor BP OAC Appreciate Cardiology IRF protocol 08/07/20: Monitor closely Abx Pain management O2 08/08/20: Monitor closely BP management O2 maintained 08/09/20: Monitor dyspnea O2 Monitor for falls 08/10/20: Monitor BP Appreciate Dr Brower 08/11/20: Monitor O2 Monitor wbc 08/12/20: Monitor O2 Monitor for falls (1) Myopathy (2) COPD (chronic obstructive pulmonary disease) (3) Afib Status: Acute (4) HLD (hyperlipidemia) Status: Chronic (5) HTN (hypertension) Status: Chronic (6) Obesity Status: Chronic (7) Acute on chronic respiratory failure with hypoxia Status: Acute (8) PNA (pneumonia) Status: Acute (9) Foot drop, right (10) Essential (primary) hypertension (11) Edema (12) Lower lobe pneumonia Status: Acute (13) Oxygen dependent (14) Overactive bladder (15) Glaucoma (16) Debility (17) Hypoxemia RIKA BERUMEN DO Aug 12, 2020 09:09
--- NOTE | 2020-08-12 10:02 | Physical Therapy Daily Note ---
PT Daily Note-Current Subjective Pt sitting in recliner upon arrival. Pt agrees to PT and asks to use BR to start tx. Pain Location: No Pain Reported Mental Status Patient Orientation: Person, Place, Time, Situation Attachments: Oxygen (3L) Transfers SCALE: Activities may be completed with or without assistive devices. 9-Tudjwmoxyg-mirygzf completes the activity by him/herself with no assistance from a helper. 5-Set-up or Clean-up Assistance-helper sets up or cleans up; patient completes activity. [place] assists only prior to or following the activity. 4-Supervision or Touching Assistance-helper provides verbal cues and/or touching/steadying and/or contact guard assistance as patient completes activity. Assistance may be provided throughout the activity or intermittently. 3-Partial/Moderate Assistance-helper does LESS THAN HALF the effort. [place] lifts, holds or supports trunk or limbs, but provides less than half the effort. 2-Substantial/Maximal Assistance-helper does MORE THAN HALF the effort. [place] lifts or holds trunk or limbs and provides more than half the effort. 7-Ksrvlqpfq-culaul does ALL the effort. Patient does none of the effort to complete the activity. Or, the assistance of 2 or more helpers is required for the patient to complete the activity. If activity was not attempted, code reason: 7-Patient Refused. 9-Not Applicable-not attempted and the patient did not perform the activity before the current illness, exacerbation or injury. 10-Not Attempted due to Environmental Limitations-(lack of equipment, weather restraints, etc.). 88-Not Attempted due to Medical Conditions or Safety Concerns. Sit to Lying (QC): 4 Sit to Stand (QC): 5 Toilet Transfer (QC): 4 Weight Bearing Full Weight Bearing Full Weight Bearing Gait Training Does the Patient Walk?: Yes Distance: 75' x4 Walk 10 feet (QC): 5 Walk 50 ft with 2 Turns(QC): 5 Walk 150 ft (QC): 5 Gait Persons Needed: 1 Gait Assistive Device: FWW VC to stand tall and closer to FWW so as to not WB as much on it. Wheelchair Training Does the Pt Use a Wheelchair?: No Exercises Seated Therapy Exercises: Ankle pumps, Long arc quads, Hip flexion, Kicking activity, Glut set Seated Reps: 15 NuStep Minutes: 12 NuStep Workload: 4 Treatments TF to standing and uses BR. After pt needs Mod A for pericare. Pt amb. in hallway taking RB as needed. Pt completes Seated Ex followed by using NuStep. Pt takes RB then amb. in hallway and back to room. Pt use BR again before returning to recliner to rest. All needs met, call light in hand. Assessment Current Status: Good Progress Pt is gaining strength and able to transfer more independently. Pt still fatigues, needing RB although activity tolerance is improving. PT Short Term Goals Short Term Goals Time Frame: Aug 20, 2020 Lying to sitting on side of be: 4 Sit to stand: 4 Chair/das-aj-qfqbe transfer: 4 Walk 150 feet: 4 PT [employer] Specialist Goals [employer] Specialist Goals PT [employer] Specialist Goals Time Frame: Aug 27, 2020 Roll Left & Right (QC): 6 Sit to Lying (QC): 6 Lying-Sitting on Side/Bed(QC): 6 Sit to Stand (QC): 6 Chair/Voh-zv-Ycnyi Xfer(QC): 6 Toilet Transfer (QC): 6 Car Transfer (QC): 5 Does the Patient Walk: Yes Walk 10 feet (QC): 6 Walk 50ft with 2 Turns (QC): 6 Walk 150 ft (QC): 6 Walking 10ft on Uneven Surface: 4 1 Step (curb) (QC): 4 4 Steps (QC): 4 12 Steps (QC): 9 Picking up an Object (QC): 9 Wheel 50 feet with 2 turns (QC: 9 Wheel 150 feet: 9 PT Plan Problem List Problem List: Activity Tolerance, Gait Treatment/Plan Treatment Plan: Continue Plan of Care Treatment Plan: Bed Mobility, Education, Functional Activity Chrissy, Functional Strength, Group Therapy, Gait, Safety, Therapeutic Exercise, Transfers Treatment Duration: Aug 27, 2020 Frequency: At least 5 of 7 days/Wk (IRF) Estimated Hrs Per Day: 1.5 hours per day Patient and/or Family Agrees t: Yes Safety Risks/Education Patient Education: Gait Training, Correct Positioning, Safety Issues Teaching Recipient: Patient Teaching Methods: Discussion Response to Teaching: Verbalize Understanding Time/GCodes Time In: 815 Time Out: 945 Total Billed Treatment Time: 90 Total Billed Treatment 1, FA x2 (30m), GT x2 (30m) & EX x2 (30m) LEIDY CRUZ PTA Aug 12, 2020 10:01
[2020-08-12] MEDS ORDERED: amLODIPine 5 MG (NORVASC) TAB PO NR (11:00)
[2020-08-12 11:40] VITALS: BP 134/60
--- NOTE | 2020-08-12 11:49 | Occupational Ther Daily Note ---
OT Current Status-Daily Note Subjective Pt alert, in bathroom with nrsg. Pt agrees to therapy. No c/o pain at this time. Mental Status/Objective Patient Orientation: Person, Place, Time, Situation Attachments: Oxygen ADL-Treatment Pt agrees to shower. Using BSC to elevate toilet, pt able to transfer on/off with SBA. Pt able to manipulate clothing and is able to reach to cleanse buttocks. Assist needed to cleanse thoroughly. Pt transferred into shower with SBA using FWW, grabbars and hand held shower. Pt completed shower sitting on shower bench with SBA using grabbars, LH sponge and hand held shower. SBA as pt stood in shower using grabbars for stabilization while cleansing buttocks/lola area by self. After set up, pt complete upper body dressing by self. After set up and using body and fender worker, pt able to don/doff lower body clothing by self. Assist to wrap B LE for lymphedema then assist to don/doff socks. Pt sat at sink to complete oral care and grooming independently. After session, pt sitting in recliner with call light/phone in reach. All needs met in room. Therapy Code Descriptions/Definitions Functional [place] Measure: 0=Not Assessed/NA 4=Minimal Assistance 1=Total Assistance 5=Supervision or Setup 2=Maximal Assistance 6=Modified [place] 3=Moderate Assistance 7=Complete IndependenceSCALE: Activities may be completed with or without assistive devices. 9-Srmwggiwjm-gsmmeyp completes the activity by him/herself with no assistance from a helper. 5-Set-up or Clean-up Assistance-helper sets up or cleans up; patient completes activity. [place] assists only prior to or following the activity. 4-Supervision or Touching Assistance-helper provides verbal cues and/or touching/steadying and/or contact guard assistance as patient completes activity. Assistance may be provided throughout the activity or intermittently. 3-Partial/Moderate Assistance-helper does LESS THAN HALF the effort. [place] lifts, holds or supports trunk or limbs, but provides less than half the effort. 2-Substantial/Maximal Assistance-helper does MORE THAN HALF the effort. [place] lifts or holds trunk or limbs and provides more than half the effort. 2-Wzvunplhn-icsflk does ALL the effort. Patient does none of the effort to complete the activity. Or, the assistance of 2 or more helpers is required for the patient to complete the activity. If activity was not attempted, code reason: 7-Patient Refused. 9-Not Applicable-not attempted and the patient did not perform the activity before the current illness, exacerbation or injury. 10-Not Attempted due to Environmental Limitations-(lack of equipment, weather restraints, etc.). 88-Not Attempted due to Medical Conditions or Safety Concerns. Eating (QC): 5 (Assist with opening difficult packages. Uses regular utensils to eat.) Oral Hygiene (QC): 6 Shower/Bathe Self (QC): 4 Upper Body Dressing (QC): 5 Lower Body Dressing (QC): 5 On/Off Footwear: 2 Toileting Hygiene (QC): 3 Toilet Transfer (QC): 4 Pt states that she has assistance to get into and out of tub using tub transfer bench. Pt also has assistance to set up dressing and be available for pt if anything is needed. OT Short Term Goals Short Term Goals Time Frame: Aug 15, 2020 Toileting hygiene: 4 Upper body dressin Lower body dressin Putting on/taking off footwear: 5 OT Senior Care Goals Print Finisher Goals Time Frame: Aug 29, 2020 Eating (QC): 6 Oral Hygiene (QC): 6 Toileting Hygiene (QC): 6 Shower/Bathe Self (QC): 4 Upper Body Dressing (QC): 6 Lower Body Dressing (QC): 6 On/Off Footwear (QC): 6 Additional Goals: 1-Demonstrate ADL Tasks, 2-Verbalize Understanding, 3- ImproveStrength/Chrissy 1=Demonstrate adherence to instructed precautions during ADL tasks. 2=Patient will verbalize/demonstrate understanding of assistive devices/modifications for ADL. 3=Patient will improve strength/tolerance for activity to enable patient to perform ADL's. OT Education/Plan Problem List/Assessment Assessment: Decreased Activ Tolerance, Impaired Self-Care Skills Discharge Recommendations Plan/Recommendations: Continue POC Treatment Plan/Plan of Care Patient would benefit from OT for education, treatment and training to promote independence in ADL's, mobility, safety and/or upper extremity function for ADL's. Plan of Care: ADL Retraining, Functional Mobility, Group Exercise/Act as Ind, UE Funct Exercise/Act Treatment Duration: Aug 29, 2020 Frequency: At least 5 of 7 days/Wk (IRF) Estimated Hrs Per Day: 1.5 hours per day Rehab Potential: Good Time/GCodes Start Time: 10:30 Stop Time: 12:00 Total Time Billed (hr/min): 90 Billed Treatment Time 1 visit-ADL 6 (90 min) FLORENCIO MARSHALL Aug 12, 2020 11:49
--- NOTE | 2020-08-12 13:13 | Progress Note - Cardiology ---
Cardiology SOAP Progress Note Subjective: Has shortness of breath with activity No cp or palp or syncope Gen malaise and weakness present No n/v/d Objective: I&O/Vital Signs 08/12/20 08/12/20 08/12/20 08/12/20 07:03 07:26 08:00 08:00 Temp 36.8 Pulse 64 65 Resp 16 B/P (MAP) 187/80 (115) 163/72 (102) Pulse Ox 96 96 O2 Delivery High Flow N/C Nasal Cannula Nasal Cannula O2 Flow Rate 3.00 3.00 3.00 08/12/20 11:40 Pulse 60 B/P (MAP) 134/60 (84) 08/12/20 00:00 Intake Total 1430 ml Balance 1430 ml Constitutional: AAO x 3, well-developed, well-nourished Respiratory: No accessory muscle use; other (good, bilateral air entry) Cardiovascular: regular rate-rhythm, S1 and S2, systolic murmur (soft DAPHNE at card base) Gastrointestional: No tender; soft; No guarding, No rebound; audible bowel sounds Extremities: swelling (mod, bilateral, pitting leg edema); No clubbing, No cyanosis Neurologic/Psychiatric: oriented x 3, other (moves all limbs equally) A/P: Assessment: Uncontrolled hypertension Ac resp insuff due to pneumonia, managed by primary care team. Acute diastolic CHF, currently clinically compensated - echocardiogram done on August 04, 2020 showing normal left ventricular systolic function, ejection fraction 60 percent, mild mitral regurgitation, mild aortic stenosis, pulmonary artery pressure of 40-45 mmHg Chronic, bilateral leg edema, likely due to venous insuff Sinus node dysfunction, history of permanent pacemaker, alternating between sinus rhythm and atrial paced rhythm Paroxysmal atrial fibrillation, on rivaroxaban CKD-3 Hyperlipidemia Plan: * BP still elevated * Adjust meds (see orders) * Monitor labs BRIE LLANOS MD FACP [facility] Aug 12, 2020 13:13
[2020-08-12 18:00] VITALS: BP 148/66
[2020-08-12] MEDS: MELATONIN 3 MG TABLET PO PRN (21:03)
[2020-08-12] MEDS: LATANOPROST 0.005% (XALATAN) OPHTH SOLN 2.5 ML OU SCH (21:03)
[2020-08-13 05:03] VITALS: BP 144/65
[2020-08-13] MEDS: KCL 20 MEQ TAB (K-DUR) PO SCH (06:12)
[2020-08-13] MEDS: predniSONE 20 MG TAB PO SCH (06:12)
[2020-08-13 08:00] VITALS: BP 164/69
[2020-08-13] MEDS: TIMOLOL MALEATE 0.5% 5 ML (TIMOPTIC) BTL OU SCH (08:29)
[2020-08-13] MEDS: amLODIPine 10 MG (NORVASC) TAB PO SCH (08:29)
[2020-08-13] MEDS: FUROSEMIDE 40 MG (LASIX) TAB PO SCH (08:29)
[2020-08-13] MEDS: CARVEDILOL 12.5 MG (COREG) TABLET PO SCH ×2 (08:29→18:11)
[2020-08-13] MEDS: RIVAROXABAN 15 MG TABLET (XARELTO) PO SCH (08:32)
[2020-08-13] MEDS: DOCUSATE SODIUM 100 MG (COLACE) CAP PO SCH ×2 (08:33→20:05)
[2020-08-13] MEDS: SENNA W/DOCUSATE (SENOKOT S) TABLET PO SCH ×2 (08:33→20:05)
[2020-08-13] MEDS: polyethylene glycoL POWDER 17 GM (MIRALAX) PACK PO SCH ×2 (08:33→20:05)
[2020-08-13] MEDS: RT-ALBUTEROL INHALER HFA (VENTOLIN HFA) 18 GM IH SCH ×2 (09:00→21:08)
--- NOTE | 2020-08-13 09:20 | Occupational Ther Daily Note ---
OT Current Status-Daily Note Subjective Pt alert, sitting in recliner. Working with PT. Pt agrees to co-treat with PT/OT due to increased SOA and decreased endurance. No c/o pain. Mental Status/Objective Patient Orientation: Person, Place, Time, Situation Attachments: Oxygen ADL-Treatment Co-treat with PT ([id number]) skilled instruction and modifications requires 2 clinicians due to increased SOA and decreased endurance. PT focusing on ambulation and transfers while OT focusing on ADLs and B UE placement during functional mobility. KISER wrapping B LE's for lymphedema. Pt ambulated around [facility] with 3 recovery breaks. After pt back in room PT ended treatment and OT continued treatment ([id number]). Pt declines shower and agrees to sponge bath. Sitting at sink, pt able to complete sponge bath with only SBA when pt stood to cleanse buttocks/lola area. Sitting at sink, pt able to comp lete oral care independently. After set up, pt able to don/doff upper body clothing by self. After set up, pt completes lower body drsg using aging box hand to thread over feet then SBA for safety to hike pants. Pt able to complete toileting by self if only voiding, assist to thoroughly cleanse after BM. Pt states that she has her own technique at home and is able to complete by self. After therapy, pt sitting in recliner with call light/phone in reach. All needs met in room. Therapy Code Descriptions/Definitions Functional [place] Measure: 0=Not Assessed/NA 4=Minimal Assistance 1=Total Assistance 5=Supervision or Setup 2=Maximal Assistance 6=Modified [place] 3=Moderate Assistance 7=Complete IndependenceSCALE: Activities may be completed with or without assistive devices. 4-Kkehvrehij-mliophi completes the activity by him/herself with no assistance from a helper. 5-Set-up or Clean-up Assistance-helper sets up or cleans up; patient completes activity. [place] assists only prior to or following the activity. 4-Supervision or Touching Assistance-helper provides verbal cues and/or touching/steadying and/or contact guard assistance as patient completes activity. Assistance may be provided throughout the activity or intermittently. 3-Partial/Moderate Assistance-helper does LESS THAN HALF the effort. [place] lifts, holds or supports trunk or limbs, but provides less than half the effort. 2-Substantial/Maximal Assistance-helper does MORE THAN HALF the effort. [place] lifts or holds trunk or limbs and provides more than half the effort. 9-Ksdfmhtfi-pkpzsn does ALL the effort. Patient does none of the effort to complete the activity. Or, the assistance of 2 or more helpers is required for the patient to complete the activity. If activity was not attempted, code reason: 7-Patient Refused. 9-Not Applicable-not attempted and the patient did not perform the activity before the current illness, exacerbation or injury. 10-Not Attempted due to Environmental Limitations-(lack of equipment, weather restraints, etc.). 88-Not Attempted due to Medical Conditions or Safety Concerns. Oral Hygiene (QC): 6 Shower/Bathe Self (QC): 4 Upper Body Dressing (QC): 5 Lower Body Dressing (QC): 4 On/Off Footwear: 2 Toileting Hygiene (QC): 4 Toilet Transfer (QC): 4 Other Treatment Using 1# hand wts, pt able to complete bicep curls, tricep ext and shldr flex exercises 1 set 15 reps for arms and 1 set 10 reps for shldrs. Recovery breaks between each set required. OT Short Term Goals Short Term Goals Time Frame: Aug 15, 2020 Toileting hygiene: 4 Upper body dressin Lower body dressin Putting on/taking off footwear: 5 OT Pelt Salter Goals Pelt Salter Goals Time Frame: Aug 29, 2020 Eating (QC): 6 Oral Hygiene (QC): 6 Toileting Hygiene (QC): 6 Shower/Bathe Self (QC): 4 Upper Body Dressing (QC): 6 Lower Body Dressing (QC): 6 On/Off Footwear (QC): 6 Additional Goals: 1-Demonstrate ADL Tasks, 2-Verbalize Understanding, 3- ImproveStrength/Chrissy 1=Demonstrate adherence to instructed precautions during ADL tasks. 2=Patient will verbalize/demonstrate understanding of assistive devices/modifications for ADL. 3=Patient will improve strength/tolerance for activity to enable patient to perform ADL's. OT Education/Plan Problem List/Assessment Assessment: Decreased Activ Tolerance, Decreased UE Strength, Impaired Self- Care Skills Discharge Recommendations Plan/Recommendations: Continue POC Treatment Plan/Plan of Care Patient would benefit from OT for education, treatment and training to promote independence in ADL's, mobility, safety and/or upper extremity function for ADL's. Plan of Care: ADL Retraining, Functional Mobility, Group Exercise/Act as Ind, UE Funct Exercise/Act Treatment Duration: Aug 29, 2020 Frequency: At least 5 of 7 days/Wk (IRF) Estimated Hrs Per Day: 1.5 hours per day Rehab Potential: Good Time/GCodes Start Time: 08:30 Stop Time: 10:00 Total Time Billed (hr/min): 90 Billed Treatment Time 1 visit-ADL 3 (45 min) EX 1 (15 min) FA 2 (30 min) co-treat with PT [id number], individual [id number] FLORENCIO MARSHALL Aug 13, 2020 09:20
--- NOTE | 2020-08-13 09:24 | PM&R Progress Note ---
Subjective HPI/CC On Admission Date Seen by Provider: Aug 13, 2020 Time Seen by Provider: 11:00 Subjective/Events-last exam 08/13/20: Pt doing a lot better BP better, Norvasc added a couple of days has really helped Edema is much improved Labs will be checked tomorrow due to elevated wbc 08/12/20: Pt having no issues BP still slightly high Bowels moved today Checked meds and labs 08/11/20: Pt doing pretty well WBC 17,000 but lactic acid and Procalcitonin was normal Chest CXR ordered but not completed yet Elevated BP managed by Dr. Brower Wrapped her legs B/L O2 sat 95% on oxygen when she is exerting herself Using her IS 08/10/20: Patient doing well Dr Brower started Norvasc 5mg for elevated BP Buttocks are sore so placed pad in chair No laxatives needed Potassium changed Lasix changed Increased transfer ability 08/09/20: Patient doing well No complaints IV abx completed Holding laxatives due to loose stools 08/08/20: Patient feels good No pain reported O2 maintained Checked meds and labs 08/07/20: Patient doing well Settling in well in IRF No pain reported BM today and a bit loose Checked meds and labs Review of Systems General: Fatigue, Malaise Pulmonary: Dyspnea Focused Exam Lactate Level 08/11/20 07:19: Lactic Acid Level 1.20 Objective Exam Vital Signs Vital Signs Date Time Temp Pulse Resp B/P (MAP) Pulse Ox O2 Delivery O2 Flow Rate FiO2 08/13/20 21:09 96 Nasal Cannula 3.00 08/13/20 18:40 36.4 67 20 148/67 (94) 08/13/20 13:55 32 Capillary Refill : General Appearance: No Apparent Distress, WD/WN, Chronically ill, Obese HEENT: PERRL/EOMI, Normal ENT Inspection, Pharynx Normal Neck: Full Range of Motion, Normal Inspection, Non Tender, Supple, Carotid Bruit Respiratory: Chest Non Tender, Lungs Clear, No Accessory Muscle Use, No Respiratory Distress, Decreased Breath Sounds Cardiovascular: No Edema, No Gallop, No JVD, No Murmur, Normal Peripheral Pulses, Irregularly Irregular Gastrointestinal: Normal Bowel Sounds, No Organomegaly, No Pulsatile Mass, Non Tender, Soft Back: Normal Inspection, No CVA Tenderness, No Vertebral Tenderness Extremity: Normal Capillary Refill, Normal Inspection, Normal Range of Motion, Non Tender, No Calf Tenderness, No Pedal Edema Neurologic/Psychiatric: Alert, Oriented x3, No Motor/Sensory Deficits, Normal Mood/Affect, Abnormal Gait, Motor Weakness Skin: Normal Color, Warm/Dry Lymphatic: No Adenopathy Results/Procedures Lab Patient resulted labs reviewed. FIM Transfers Therapy Code Descriptions/Definitions Functional [place] Measure: 0=Not Assessed/NA 4=Minimal Assistance 1=Total Assistance 5=Supervision or Setup 2=Maximal Assistance 6=Modified [place] 3=Moderate Assistance 7=Complete IndependenceSCALE: Activities may be completed with or without assistive devices. 3-Cnjivcxqsg-eulsdie completes the activity by him/herself with no assistance from a helper. 5-Set-up or Clean-up Assistance-helper sets up or cleans up; patient completes activity. [place] assists only prior to or following the activity. 4-Supervision or Touching Assistance-helper provides verbal cues and/or touching/steadying and/or contact guard assistance as patient completes activity. Assistance may be provided throughout the activity or intermittently. 3-Partial/Moderate Assistance-helper does LESS THAN HALF the effort. [place] lifts, holds or supports trunk or limbs, but provides less than half the effort. 2-Substantial/Maximal Assistance-helper does MORE THAN HALF the effort. [place] lifts or holds trunk or limbs and provides more than half the effort. 6-Hupswtwjm-tvkmiw does ALL the effort. Patient does none of the effort to complete the activity. Or, the assistance of 2 or more helpers is required for the patient to complete the activity. If activity was not attempted, code reason: 7-Patient Refused. 9-Not Applicable-not attempted and the patient did not perform the activity before the current illness, exacerbation or injury. 10-Not Attempted due to Environmental Limitations-(lack of equipment, weather restraints, etc.). 88-Not Attempted due to Medical Conditions or Safety Concerns. Roll Left to Right (QC): 5 Sit to Lying (QC): 4 Sit to Stand (QC): 5 Chair/Paa-ja-Figmo Xfer(QC): 4 Car Transfer (QC): 3 Gait Training Does the Patient Walk?: Yes Distance: 75' x4 Walk 10 feet (QC): 5 Walk 50 ft with 2 Turns(QC): 5 Walk 150 ft (QC): 5 Walking 10ft/uneven surface-QC: 3 Gait Persons Needed: 1 Gait Assistive Device: FWW Wheelchair Training Does the Pt Use a Wheelchair?: No Wheel 50 ft with 2 turns (QC): 4 Wheel 150 ft (QC): 9 Stair Training 1 Step (curb) (QC): 3 4 Steps (QC): 88 12 Steps (QC): 88 Balance Picking up an Object (QC): 88 ADL-Treatment Eating (QC): 5 (Assist with opening difficult packages. Uses regular utensils to eat.) Oral Hygiene (QC): 6 Bathing Location: L Arm, R Arm, L Upper Leg, R Upper Leg, Chest, Abdomen Shower/Bathe Self (QC): 4 Upper Body Dressing (QC): 5 Lower Body Dressing (QC): 5 On/Off Footwear (QC): 2 Toileting Hygiene (QC): 3 Toilet Transfer (QC): 4 Assessment/Plan Assessment and Plan Assess & Plan/Chief Complaint Assessment: COPD myopathy Acute on chronic respiratory failure Chronic O2 dependence Debility following PNA and UTI PHTN Edema chronic Chronic right foot drop uses AFO Edema chronic HTN OAB Plan: Monitor BP OAC Appreciate Cardiology IRF protocol 08/07/20: Monitor closely Abx Pain management O2 08/08/20: Monitor closely BP management O2 maintained 08/09/20: Monitor dyspnea O2 Monitor for falls 08/10/20: Monitor BP Appreciate Dr Brower 08/11/20: Monitor O2 Monitor wbc 08/12/20: Monitor O2 Monitor for falls 08/13/20: Monitor closely Monitor wbc (1) Myopathy (2) COPD (chronic obstructive pulmonary disease) (3) Afib Status: Acute (4) HLD (hyperlipidemia) Status: Chronic (5) HTN (hypertension) Status: Chronic (6) Obesity Status: Chronic (7) Acute on chronic respiratory failure with hypoxia Status: Acute (8) PNA (pneumonia) Status: Acute (9) Foot drop, right (10) Essential (primary) hypertension (11) Edema (12) Lower lobe pneumonia Status: Acute (13) Oxygen dependent (14) Overactive bladder (15) Glaucoma (16) Debility (17) Hypoxemia RIKA BERUMEN DO Aug 13, 2020 09:24
--- NOTE | 2020-08-13 09:56 | Progress Note - Cardiology ---
Cardiology SOAP Progress Note Objective: I&O/Vital Signs 08/14/20 08/14/20 08/14/20 06:15 08:00 08:14 Temp 36.7 Pulse 62 Resp 22 B/P (MAP) 151/79 (103) Pulse Ox 93 94 O2 Delivery Nasal Cannula Nasal Cannula Nasal Cannula O2 Flow Rate 3.00 3.00 3.00 08/13/20 23:59 Intake Total 1320 ml Balance 1320 ml Constitutional: AAO x 3, well-developed, well-nourished Respiratory: No accessory muscle use; other (good, bilateral air entry) Cardiovascular: regular rate-rhythm, S1 and S2, systolic murmur (soft DAPHNE at card base) Gastrointestional: No tender; soft; No guarding, No rebound; audible bowel sounds Extremities: swelling (mod, bilateral, pitting leg edema); No clubbing, No cyanosis Neurologic/Psychiatric: oriented x 3, other (moves all limbs equally) Results/Procedures: Labs Laboratory Tests 08/14/20 05:20: White Blood Count 19.0H, Red Blood Count 3.86, Hemoglobin 11.2L, Hematocrit 35, Mean Corpuscular Volume 91, Mean Corpuscular Hemoglobin 29, Mean Corpuscular Hemoglobin Concent 32, Red Cell Distribution Width 14.3, Platelet Count 344, Mean Platelet Volume 9.4, Immature Granulocyte % (Auto) 5, Neutrophils (%) (Auto) 78H, Lymphocytes (%) (Auto) 10L, Monocytes (%) (Auto) 7, Eosinophils (%) (Auto) 0, Basophils (%) (Auto) 0, Neutrophils # (Auto) 14.8H, Lymphocytes # (Auto) 1.9, Monocytes # (Auto) 1.3H, Eosinophils # (Auto) 0.1, Basophils # (Auto) 0.1, Immature Granulocyte # (Auto) 0.9H, Sodium Level 135, Potassium Level 4.2, Chloride Level 99, Carbon Dioxide Level 27, Anion Gap 9, Blood Urea Nitrogen 26H, Creatinine 0.93, Estimat Glomerular Filtration Rate 57, BUN/Creatinine Ratio 28, Glucose Level 105, Calcium Level 8.6, Corrected Calcium 9.2, Total Bilirubin 0.6, Aspartate Amino Transf (AST/SGOT) 18, Alanine Aminotransferase (ALT/SGPT) 30, Alkaline Phosphatase 74, Total Protein 6.2L, Albumin 3.2 A/P: Assessment: Uncontrolled hypertension - improved Ac resp insuff due to pneumonia, managed by primary care team. Acute diastolic CHF, currently clinically compensated - echocardiogram done on August 04, 2020 showing normal left ventricular systolic function, ejection fraction 60 percent, mild mitral regurgitation, mild aortic stenosis, pulmonary artery pressure of 40-45 mmHg Chronic, bilateral leg edema, likely due to venous insuff Sinus node dysfunction, history of permanent pacemaker, alternating between sinus rhythm and atrial paced rhythm Paroxysmal atrial fibrillation, on rivaroxaban CKD-3 Hyperlipidemia Plan: * BP improved following adjustment in regimen * Continue current regimen * Monitor labs YENIFER YANG Aug 13, 2020 09:56
--- NOTE | 2020-08-13 10:29 | Physical Therapy Daily Note ---
PT Daily Note-Current Subjective Pt laying Supine in bed upon arrival. Pt agrees to PT. Pain Location: No Pain Reported Mental Status Patient Orientation: Person, Place, Time, Situation Attachments: Oxygen (#L) Transfers SCALE: Activities may be completed with or without assistive devices. 2-Fhhehaqlax-hyolcjb completes the activity by him/herself with no assistance from a helper. 5-Set-up or Clean-up Assistance-helper sets up or cleans up; patient completes activity. [place] assists only prior to or following the activity. 4-Supervision or Touching Assistance-helper provides verbal cues and/or touching/steadying and/or contact guard assistance as patient completes activity. Assistance may be provided throughout the activity or intermittently. 3-Partial/Moderate Assistance-helper does LESS THAN HALF the effort. [place] lifts, holds or supports trunk or limbs, but provides less than half the effort. 2-Substantial/Maximal Assistance-helper does MORE THAN HALF the effort. [place] lifts or holds trunk or limbs and provides more than half the effort. 8-Wkdtamcpr-wazulx does ALL the effort. Patient does none of the effort to complete the activity. Or, the assistance of 2 or more helpers is required for the patient to complete the activity. If activity was not attempted, code reason: 7-Patient Refused. 9-Not Applicable-not attempted and the patient did not perform the activity before the current illness, exacerbation or injury. 10-Not Attempted due to Environmental Limitations-(lack of equipment, weather restraints, etc.). 88-Not Attempted due to Medical Conditions or Safety Concerns. Lying to Sitting/Side of Bed(Q: 5 Sit to Stand (QC): 5 Toilet Transfer (QC): 5 Weight Bearing Full Weight Bearing Full Weight Bearing Gait Training Does the Patient Walk?: Yes Distance: 75' x2, 50' x2 Walk 10 feet (QC): 5 Walk 50 ft with 2 Turns(QC): 5 Gait Persons Needed: 1 Gait Assistive Device: FWW Pt takes RB as pt fatigues. Wheelchair Training Does the Pt Use a Wheelchair?: No Exercises Supine Ex: Ankle pumps, Quad Set, Glut sets, Heel Slides, Straight leg raise, Hip abd/add Supine Reps: 15 Treatments TF from bed to EOB to standing then needs to use BR. Pt returns to recliner to rest. OT arrives for short co-treat. Co-treat with PT ([id number]) skilled instruction and modifications requires 2 clinicians due to increased SOA and decreased endurance. PT focusing on ambulation and transfers while OT focusing on ADLs and B UE placement during functional mobility. KISER wrapping B LE's for lymphedema. Pt ambulated around [facility] with 3 recovery breaks. After pt back in room PT ended treatment and OT continued treatment. [id number]: Pt completes Supine Ex with RB as needed. Pt resting in recliner at end of tx. All needs met, call light in hand. Assessment Current Status: Good Progress Pt requires rest breaks as pt fatigues but is gaining strength so transfers are improving with independence. PT Short Term Goals Short Term Goals Time Frame: Aug 20, 2020 Lying to sitting on side of be: 4 Sit to stand: 4 Chair/jnx-zk-qmuei transfer: 4 Walk 150 feet: 4 PT Field Sales Agent Goals Field Sales Agent Goals PT Field Sales Agent Goals Time Frame: Aug 27, 2020 Roll Left & Right (QC): 6 Sit to Lying (QC): 6 Lying-Sitting on Side/Bed(QC): 6 Sit to Stand (QC): 6 Chair/Pnf-ez-Udtji Xfer(QC): 6 Toilet Transfer (QC): 6 Car Transfer (QC): 5 Does the Patient Walk: Yes Walk 10 feet (QC): 6 Walk 50ft with 2 Turns (QC): 6 Walk 150 ft (QC): 6 Walking 10ft on Uneven Surface: 4 1 Step (curb) (QC): 4 4 Steps (QC): 4 12 Steps (QC): 9 Picking up an Object (QC): 9 Wheel 50 feet with 2 turns (QC: 9 Wheel 150 feet: 9 PT Plan Problem List Problem List: Activity Tolerance, Functional Strength, Gait Treatment/Plan Treatment Plan: Continue Plan of Care Treatment Plan: Bed Mobility, Education, Functional Activity Chrissy, Functional Strength, Group Therapy, Gait, Safety, Therapeutic Exercise, Transfers Treatment Duration: Aug 27, 2020 Frequency: At least 5 of 7 days/Wk (IRF) Estimated Hrs Per Day: 1.5 hours per day Patient and/or Family Agrees t: Yes Safety Risks/Education Patient Education: Gait Training, Correct Positioning, Safety Issues Teaching Recipient: Patient Teaching Methods: Discussion Response to Teaching: Verbalize Understanding Time/GCodes Time In: 800 Time Out: 900 Total Billed Treatment Time: 60 Total Billed Treatment 800-900:1, FA x2 (30m) & GT x2 (30m) [id number]: 1, EX x2 (30m) LEIDY CRUZ SKILLS AUDITOR Aug 13, 2020 10:29
[2020-08-13 13:55] VITALS: BP 164/69
--- NOTE | 2020-08-13 16:40 | Progress Note - Cardiology ---
Cardiology SOAP Progress Note Subjective: No cp or palp or syncope Shortness of breath with exertion Gen malaise No n/v/d Objective: I&O/Vital Signs 08/13/20 08/13/20 08/13/20 08/13/20 05:03 08:00 08:00 09:00 Temp 36.2 Pulse 68 64 Resp 20 B/P (MAP) 144/65 (91) 164/69 (100) Pulse Ox 94 94 O2 Delivery High Flow N/C Nasal Cannula Nasal Cannula O2 Flow Rate 3.00 3.00 3.00 08/13/20 13:55 Temp 36.2 Pulse 71 Pulse Ox 94 FiO2 32 08/13/20 00:00 Intake Total 1100 ml Balance 1100 ml Constitutional: AAO x 3, well-developed, well-nourished Respiratory: No accessory muscle use; other (good, bilateral air entry) Cardiovascular: regular rate-rhythm, S1 and S2, systolic murmur (soft DAPHNE at card base) Gastrointestional: No tender; soft; No guarding, No rebound; audible bowel sounds Extremities: swelling (mod, bilateral, pitting leg edema); No clubbing, No cyanosis Neurologic/Psychiatric: oriented x 3, other (moves all limbs equally) A/P: Assessment: Uncontrolled hypertension - improved Ac resp insuff due to pneumonia, managed by primary care team. Acute diastolic CHF, currently clinically compensated - echocardiogram done on August 04, 2020 showing normal left ventricular systolic function, ejection fraction 60 percent, mild mitral regurgitation, mild aortic stenosis, pulmonary artery pressure of 40-45 mmHg Chronic, bilateral leg edema, likely due to venous insuff Sinus node dysfunction, history of permanent pacemaker, alternating between sinus rhythm and atrial paced rhythm Paroxysmal atrial fibrillation, on rivaroxaban CKD-3 Hyperlipidemia Plan: * BP improved following adjustment in regimen * Continue current regimen * Monitor labs BRIE LLANOS MD FACP [facility] Aug 13, 2020 16:40
[2020-08-13 18:40] VITALS: BP 148/67
[2020-08-13] MEDS: MELATONIN 3 MG TABLET PO PRN (20:09)
[2020-08-13] MEDS: LATANOPROST 0.005% (XALATAN) OPHTH SOLN 2.5 ML OU SCH (20:09)
[2020-08-14 05:33] LABS: BASOPHILS # (AUTO) 0.1 10^3/uL (0.0-0.1); BASOPHILS % (AUTO) 0 % (0-10); EOSINOPHILS # (AUTO) 0.1 10^3/uL (0.0-0.3); EOSINOPHILS % (AUTO) 0 % (0-10); HEMATOCRIT 35 % (35-52); HEMOGLOBIN 11.2 g/dL (11.5-16.0); LYMPHOCYTES # (AUTO) 1.9 10^3/uL (1.0-4.0); LYMPHOCYTES % (AUTO) 10 % (12-44); MEAN CORPUSCULAR HEMOGLOBIN 29 pg (25-34); MEAN CORPUSCULAR HGB CONC 32 g/dL (32-36); MEAN CORPUSCULAR VOLUME 91 fL (80-99); MEAN PLATELET VOLUME 9.4 fL (9.0-12.2); MONOCYTES # (AUTO) 1.3 10^3/uL (0.0-1.0); MONOCYTES % (AUTO) 7 % (0-12); NEUTROPHILS # (AUTO) 14.8 10^3/uL (1.8-7.8); NEUTROPHILS % (AUTO) 78 % (42-75); PLATELET COUNT 344 10^3/uL (130-400)
[2020-08-14 05:48] LABS: ALBUMIN 3.2 GM/DL (3.2-4.5); BILIRUBIN,TOTAL 0.6 MG/DL (0.1-1.0); CALCIUM 8.6 MG/DL (8.5-10.1); CREATININE SERUM 0.93 MG/DL (0.60-1.30); POTASSIUM 4.2 MMOL/L (3.6-5.0); TOTAL PROTEIN 6.2 GM/DL (6.4-8.2)
[2020-08-14] MEDS: KCL 20 MEQ TAB (K-DUR) PO SCH (06:13)
[2020-08-14] MEDS: predniSONE 20 MG TAB PO SCH (06:14)
[2020-08-14 06:15] VITALS: BP 151/79
[2020-08-14] MEDS: CARVEDILOL 12.5 MG (COREG) TABLET PO SCH ×2 (07:40→17:39)
[2020-08-14] MEDS: DOCUSATE SODIUM 100 MG (COLACE) CAP PO SCH ×2 (07:40→21:50)
[2020-08-14] MEDS: amLODIPine 10 MG (NORVASC) TAB PO SCH (07:41)
[2020-08-14] MEDS: RIVAROXABAN 15 MG TABLET (XARELTO) PO SCH (07:41)
[2020-08-14] MEDS: SENNA W/DOCUSATE (SENOKOT S) TABLET PO SCH ×2 (07:41→21:50)
[2020-08-14] MEDS: FUROSEMIDE 40 MG (LASIX) TAB PO SCH (07:42)
[2020-08-14] MEDS: polyethylene glycoL POWDER 17 GM (MIRALAX) PACK PO SCH ×2 (07:44→21:50)
[2020-08-14] MEDS: TIMOLOL MALEATE 0.5% 5 ML (TIMOPTIC) BTL OU SCH (07:45)
[2020-08-14] MEDS: RT-ALBUTEROL INHALER HFA (VENTOLIN HFA) 18 GM IH SCH ×2 (08:13→18:20)
--- NOTE | 2020-08-14 10:07 | Occupational Ther Daily Note ---
OT Current Status-Daily Note Subjective Pt AxO, light on. Pt states need for bathroom. Pt agrees to tx/ showering post BM. Pt denies pain, slight SOB upon exurtion with cues for rest breaks. Second tx, pt asleep in chair. Wakes easily, agrees to tx. No pain through session. Slight SOB, 02 assessed and is 95%-98%. Minimal cues for breathing through nose rather than mouth in tx. Mental Status/Objective Patient Orientation: Person, Place, Situation, Normal For Age Attachments: Oxygen ADL-Treatment Therapy Code Descriptions/Definitions Functional [place] Measure: 0=Not Assessed/NA 4=Minimal Assistance 1=Total Assistance 5=Supervision or Setup 2=Maximal Assistance 6=Modified [place] 3=Moderate Assistance 7=Complete IndependenceSCALE: Activities may be completed with or without assistive devices. 4-Jszmefhmvt-nvnmfbq completes the activity by him/herself with no assistance from a helper. 5-Set-up or Clean-up Assistance-helper sets up or cleans up; patient completes activity. [place] assists only prior to or following the activity. 4-Supervision or Touching Assistance-helper provides verbal cues and/or touching/steadying and/or contact guard assistance as patient completes activi ty. Assistance may be provided throughout the activity or intermittently. 3-Partial/Moderate Assistance-helper does LESS THAN HALF the effort. [place] lifts, holds or supports trunk or limbs, but provides less than half the effort. 2-Substantial/Maximal Assistance-helper does MORE THAN HALF the effort. [place] lifts or holds trunk or limbs and provides more than half the effort. 4-Zportznan-dijbxa does ALL the effort. Patient does none of the effort to complete the activity. Or, the assistance of 2 or more helpers is required for the patient to complete the activity. If activity was not attempted, code reason: 7-Patient Refused. 9-Not Applicable-not attempted and the patient did not perform the activity before the current illness, exacerbation or injury. 10-Not Attempted due to Environmental Limitations-(lack of equipment, weather restraints, etc.). 88-Not Attempted due to Medical Conditions or Safety Concerns. Eating (QC): 6 Oral Hygiene (QC): 4 (SBA, chair placed behind pt. Able to complete with increased time in stance and sits post activity for breath recovery) Bathing Location: L Arm, R Arm, L Upper Leg, R Upper Leg, Chest, Abdomen, Perineal Area Shower/Bathe Self (QC): 3 (min A washing bottom/ LEs. Pt expresses she recieves assist from CG 2-3x per week and receives assist with these areas.) Upper Body Dressing (QC): 5 (s/u) Lower Body Dressing (QC): 3 (mod A: assist with threading BLE in breifs/ pants. Pt able to pull up to thighs, requires A for pulling over bottom) On/Off Footwear: 1 (TD with wrapping/ socks) Toileting Hygiene (QC): 3 (min A bottom thoroughness.) Toilet Transfer (QC): 4 (SBA-CGA) Other Treatment [id number]: OT/ PT co-treat to address functional activity tolerance. OT addresses UE movement, problem solving, ADLs, while PT addresses LE movement, transfers, balance. Completes sit to stand, use of walker to commode with SBA. Pt toilets with SUP/ min A bottom care post BM. Shower transfer with SBA/ cues. Pt sits to shower, stance at gbs for bottom care. Pt dresses in shower as outlined. Cues for breath management. Completes oral care SBA and ambulates to chair SBA. LEs wrapped toes to knees with lotion applied for skin care. Pt left in recliner with all needs met, call light in reach. LEs elevated/ comfortable. SBA sit to stand. SBA ambulation with walker to toilet. Completes with SUP. Pt ambulates to EOB for rest break post hand hygiene, noted SOB. Pt rests ~2 min, ambulates to nearest chair (~40 feet) in commons. Pt rests, educated on benefits of UE ex, completes 2 sets of 10 UE ex: shoulder flexion, abduction. Pt rests, returns to room without rest break. Sits in recliner, all needs met, call light in reach. Education OT Patient Education: Correct positioning, Energy conservation, Exercise program, Home exercise program, Modified ADL techniques, Progress toward Goal/Update tx plan, Purpose of tx/functional activities, Safety issues, Transfer techniques Teaching Recipient: Patient Teaching Methods: Demonstration, Discussion Response to Teaching: Verbalize Understanding, Return Demonstration OT Short Term Goals Short Term Goals Time Frame: Aug 15, 2020 Toileting hygiene: 4 Upper body dressin Lower body dressin Putting on/taking off footwear: 5 OT [employer] Goals [employer] Goals Time Frame: Aug 29, 2020 Eating (QC): 6 Oral Hygiene (QC): 6 Toileting Hygiene (QC): 6 Shower/Bathe Self (QC): 4 Upper Body Dressing (QC): 6 Lower Body Dressing (QC): 6 On/Off Footwear (QC): 6 Additional Goals: 1-Demonstrate ADL Tasks, 2-Verbalize Understanding, 3-Improve Strength/Chrissy 1=Demonstrate adherence to instructed precautions during ADL tasks. 2=Patient will verbalize/demonstrate understanding of assistive devices/modifications for ADL. 3=Patient will improve strength/tolerance for activity to enable patient to pe rform ADL's. OT Education/Plan Problem List/Assessment Assessment: Decreased Activ Tolerance, Decreased UE Strength, Dependent Transfers, Edema, Impaired Funct Balance, Impaired I ADL's, Impaired Self-Care Skills Discharge Recommendations Plan/Recommendations: Continue POC Therapy Discharge Recommendati: Scheduled Assistance, Home & Family Treatment Plan/Plan of Care Treatment,Training & Education: Yes Patient would benefit from OT for education, treatment and training to promote independence in ADL's, mobility, safety and/or upper extremity function for ADL's. Plan of Care: ADL Retraining, Functional Mobility, Group Exercise/Act as Ind, UE Funct Exercise/Act Treatment Duration: Aug 29, 2020 Frequency: At least 5 of 7 days/Wk (IRF) Estimated Hrs Per Day: 1.5 hours per day Rehab Potential: Good Time/GCodes Start Time: 09:00 (1330) Stop Time: 10:00 (1400) Total Time Billed (hr/min): 90 Billed Treatment Time [id number]: OT/ PT co-treat to address functional activity tolerance. OT addresses UE movement, problem solving, ADLs, while PT addresses LE movement, transfers, balance 1, ADL 4 [phone]: 1,ADL, EX (30) Total: 90 KODI LEO OTR Aug 14, 2020 10:07
--- NOTE | 2020-08-14 10:08 | Physical Therapy Daily Note ---
PT Daily Note-Current Subjective Pt sitting up in recliner upon arrival. Pt agrees to PT/OT co-treat. Pain Location: No Pain Reported Mental Status Patient Orientation: Person, Place, Time, Situation Attachments: Oxygen (3L) Transfers SCALE: Activities may be completed with or without assistive devices. 8-Efewtwssjc-zjlokaz completes the activity by him/herself with no assistance from a helper. 5-Set-up or Clean-up Assistance-helper sets up or cleans up; patient completes activity. [place] assists only prior to or following the activity. 4-Supervision or Touching Assistance-helper provides verbal cues and/or touching/steadying and/or contact guard assistance as patient completes activity. Assistance may be provided throughout the activity or intermittently. 3-Partial/Moderate Assistance-helper does LESS THAN HALF the effort. [place] lifts, holds or supports trunk or limbs, but provides less than half the effort. 2-Substantial/Maximal Assistance-helper does MORE THAN HALF the effort. [place] lifts or holds trunk or limbs and provides more than half the effort. 2-Btdvojazt-lhamzo does ALL the effort. Patient does none of the effort to complete the activity. Or, the assistance of 2 or more helpers is required for the patient to complete the activity. If activity was not attempted, code reason: 7-Patient Refused. 9-Not Applicable-not attempted and the patient did not perform the activity before the current illness, exacerbation or injury. 10-Not Attempted due to Environmental Limitations-(lack of equipment, weather restraints, etc.). 88-Not Attempted due to Medical Conditions or Safety Concerns. Sit to Stand (QC): 4 Toilet Transfer (QC): 5 TF start at SBA but as pt fatigues go to CGA. Weight Bearing Full Weight Bearing Full Weight Bearing Gait Training Does the Patient Walk?: Yes Distance: 10' x2 Walk 10 feet (QC): 4 Gait Persons Needed: 1 Gait Assistive Device: FWW Wheelchair Training Does the Pt Use a Wheelchair?: No Treatments [id number]: OT/ PT co-treat to address functional activity tolerance. OT addresses UE movement, problem solving, ADLs, while PT addresses LE movement, transfers, balance. Completes sit to stand, use of walker to commode with SBA. Pt toilets with SUP/ min A bottom care post BM. Shower transfer with SBA/ cues. Pt sits to shower, stance at gbs for bottom care. Pt dresses in shower as outlined. Cues for breath management. Completes oral care SBA and ambulates to chair SBA. LEs wrapped toes to knees with lotion applied for skin care. Pt left in recliner with all needs met, call light in reach. LEs elevated/ comfortable. [id number]: TF from recliner to standing. Pt asks to use BR. COUNTERINTELLIGENCE AGENT assists with pericare. Pt amb. in hallway ~75' x2 and returns to room to rest and eat lunch. Pt is resting in recliner at end of tx with all needs met, call light in hand. Assessment Current Status: Good Progress Pt fatigues and needs occasional RB to recover. PT Short Term Goals Short Term Goals Time Frame: Aug 20, 2020 Lying to sitting on side of be: 4 Sit to stand: 4 Chair/hdo-oe-nlhlj transfer: 4 Walk 150 feet: 4 PT Custodial Goals Operations Consultant Goals PT Custodial Goals Time Frame: Aug 27, 2020 Roll Left & Right (QC): 6 Sit to Lying (QC): 6 Lying-Sitting on Side/Bed(QC): 6 Sit to Stand (QC): 6 Chair/Frm-ev-Mzwsx Xfer(QC): 6 Toilet Transfer (QC): 6 Car Transfer (QC): 5 Does the Patient Walk: Yes Walk 10 feet (QC): 6 Walk 50ft with 2 Turns (QC): 6 Walk 150 ft (QC): 6 Walking 10ft on Uneven Surface: 4 1 Step (curb) (QC): 4 4 Steps (QC): 4 12 Steps (QC): 9 Picking up an Object (QC): 9 Wheel 50 feet with 2 turns (QC: 9 Wheel 150 feet: 9 PT Plan Problem List Problem List: Activity Tolerance, Safety, Gait Treatment/Plan Treatment Plan: Continue Plan of Care Treatment Plan: Bed Mobility, Education, Functional Activity Chrissy, Functional Strength, Group Therapy, Gait, Safety, Therapeutic Exercise, Transfers Treatment Duration: Aug 27, 2020 Frequency: At least 5 of 7 days/Wk (IRF) Estimated Hrs Per Day: 1.5 hours per day Patient and/or Family Agrees t: Yes Safety Risks/Education Patient Education: Gait Training, Correct Positioning, Safety Issues Teaching Recipient: Patient Teaching Methods: Discussion Response to Teaching: Verbalize Understanding Time/GCodes Time In: 900 Time Out: 1200 Total Billed Treatment Time: 90 Total Billed Treatment 900-1000: 1, FA x4 (60m) Co-treat w/OT for 60m [id number]: 1, FA (10m) & GT (20m) LEIDY CRUZ COUNTERINTELLIGENCE AGENT Aug 14, 2020 10:08
--- NOTE | 2020-08-14 10:24 | PM&R Progress Note ---
Subjective HPI/CC On Admission Date Seen by Provider: Aug 14, 2020 Time Seen by Provider: 10:30 Subjective/Events-last exam 08/14/20: Decreasing Prednisone dose now Elevated wbc noted from steroid effect ETTA wraps to legs 3L/min O2 maintained No pain BM+ 08/13/20: Pt doing a lot better BP better, Norvasc added a couple of days has really helped Edema is much improved Labs will be checked tomorrow due to elevated wbc 08/12/20: Pt having no issues BP still slightly high Bowels moved today Checked meds and labs 08/11/20: Pt doing pretty well WBC 17,000 but lactic acid and Procalcitonin was normal Chest CXR ordered but not completed yet Elevated BP managed by Dr. Brower Wrapped her legs B/L O2 sat 95% on oxygen when she is exerting herself Using her IS 08/10/20: Patient doing well Dr Brower started Norvasc 5mg for elevated BP Buttocks are sore so placed pad in chair No laxatives needed Potassium changed Lasix changed Increased transfer ability 08/09/20: Patient doing well No complaints IV abx completed Holding laxatives due to loose stools 08/08/20: Patient feels good No pain reported O2 maintained Checked meds and labs 08/07/20: Patient doing well Settling in well in IRF No pain reported BM today and a bit loose Checked meds and labs Review of Systems General: Fatigue, Malaise Pulmonary: Dyspnea Objective Exam Vital Signs Vital Signs Date Time Temp Pulse Resp B/P (MAP) Pulse Ox O2 Delivery O2 Flow Rate FiO2 08/14/20 20:10 96 Nasal Cannula 3.00 08/14/20 17:51 36.6 60 20 138/63 (88) 08/13/20 13:55 32 Capillary Refill : General Appearance: No Apparent Distress, WD/WN, Chronically ill, Obese HEENT: PERRL/EOMI, Normal ENT Inspection, Pharynx Normal Neck: Full Range of Motion, Normal Inspection, Non Tender, Supple, Carotid Bruit Respiratory: Chest Non Tender, Lungs Clear, No Accessory Muscle Use, No Respiratory Distress, Decreased Breath Sounds Cardiovascular: No Edema, No Gallop, No JVD, No Murmur, Normal Peripheral Pulses, Irregularly Irregular Gastrointestinal: Normal Bowel Sounds, No Organomegaly, No Pulsatile Mass, Non Tender, Soft Back: Normal Inspection, No CVA Tenderness, No Vertebral Tenderness Extremity: Normal Capillary Refill, Normal Inspection, Normal Range of Motion, Non Tender, No Calf Tenderness, No Pedal Edema Neurologic/Psychiatric: Alert, Oriented x3, No Motor/Sensory Deficits, Normal Mood/Affect, Abnormal Gait, Motor Weakness Skin: Normal Color, Warm/Dry Lymphatic: No Adenopathy Results/Procedures Lab Laboratory Tests 08/14/20 05:20 Patient resulted labs reviewed. FIM Transfers Therapy Code Descriptions/Definitions Functional [place] Measure: 0=Not Assessed/NA 4=Minimal Assistance 1=Total Assistance 5=Supervision or Setup 2=Maximal Assistance 6=Modified [place] 3=Moderate Assistance 7=Complete IndependenceSCALE: Activities may be completed with or without assistive devices. 0-Sjhhanivco-heihlmx completes the activity by him/herself with no assistance from a helper. 5-Set-up or Clean-up Assistance-helper sets up or cleans up; patient completes activity. [place] assists only prior to or following the activity. 4-Supervision or Touching Assistance-helper provides verbal cues and/or touching/steadying and/or contact guard assistance as patient completes activity. Assistance may be provided throughout the activity or intermittently. 3-Partial/Moderate Assistance-helper does LESS THAN HALF the effort. [place] lifts, holds or supports trunk or limbs, but provides less than half the effort. 2-Substantial/Maximal Assistance-helper does MORE THAN HALF the effort. [place] l ifts or holds trunk or limbs and provides more than half the effort. 1-Zdrmxuqdi-dwydpl does ALL the effort. Patient does none of the effort to complete the activity. Or, the assistance of 2 or more helpers is required for the patient to complete the activity. If activity was not attempted, code reason: 7-Patient Refused. 9-Not Applicable-not attempted and the patient did not perform the activity before the current illness, exacerbation or injury. 10-Not Attempted due to Environmental Limitations-(lack of equipment, weather restraints, etc.). 88-Not Attempted due to Medical Conditions or Safety Concerns. Roll Left to Right (QC): 5 Sit to Lying (QC): 4 Sit to Stand (QC): 5 Chair/Tum-rc-Dlumg Xfer(QC): 4 Car Transfer (QC): 3 Gait Training Does the Patient Walk?: Yes Distance: 75' x4 Walk 10 feet (QC): 5 Walk 50 ft with 2 Turns(QC): 5 Walk 150 ft (QC): 5 Walking 10ft/uneven surface-QC: 3 Gait Persons Needed: 1 Gait Assistive Device: FWW Wheelchair Training Does the Pt Use a Wheelchair?: No Wheel 50 ft with 2 turns (QC): 4 Wheel 150 ft (QC): 9 Stair Training 1 Step (curb) (QC): 3 4 Steps (QC): 88 12 Steps (QC): 88 Balance Picking up an Object (QC): 88 ADL-Treatment Eating (QC): 6 Oral Hygiene (QC): 4 (SBA, chair placed behind pt. Able to complete with increased time in stance and sits post activity for breath recovery) Bathing Location: L Arm, R Arm, L Upper Leg, R Upper Leg, Chest, Abdomen, Perineal Area Shower/Bathe Self (QC): 3 (min A washing bottom/ LEs. Pt expresses she recieves assist from CG 2-3x per week and receives assist with these areas.) Upper Body Dressing (QC): 5 (s/u) Lower Body Dressing (QC): 3 (mod A: assist with threading BLE in breifs/ pants. Pt able to pull up to thighs, requires A for pulling over bottom) On/Off Footwear (QC): 1 (TD with wrapping/ socks) Toileting Hygiene (QC): 3 (min A bottom thoroughness.) Toilet Transfer (QC): 4 (SBA-CGA) Assessment/Plan Assessment and Plan Assess & Plan/Chief Complaint Assessment: COPD myopathy Acute on chronic respiratory failure Chronic O2 dependence Debility following PNA and UTI PHTN Edema chronic Chronic right foot drop uses AFO Edema chronic HTN OAB Plan: Monitor BP OAC Appreciate Cardiology IRF protocol 08/07/20: Monitor closely Abx Pain management O2 08/08/20: Monitor closely BP management O2 maintained 08/09/20: Monitor dyspnea O2 Monitor for falls 08/10/20: Monitor BP Appreciate Dr Brower 08/11/20: Monitor O2 Monitor wbc 08/12/20: Monitor O2 Monitor for falls 08/13/20: Monitor closely Monitor wbc 08/14/20: Monitor O2 Decrease steroids (1) Myopathy (2) COPD (chronic obstructive pulmonary disease) (3) Afib Status: Acute (4) HLD (hyperlipidemia) Status: Chronic (5) HTN (hypertension) Status: Chronic (6) Obesity Status: Chronic (7) Acute on chronic respiratory failure with hypoxia Status: Acute (8) PNA (pneumonia) Status: Acute (9) Foot drop, right (10) Essential (primary) hypertension (11) Edema (12) Lower lobe pneumonia Status: Acute (13) Oxygen dependent (14) Overactive bladder (15) Glaucoma (16) Debility (17) Hypoxemia RIKA BERUMEN DO Aug 14, 2020 10:24
[2020-08-14 17:51] VITALS: BP 138/63
--- NOTE | 2020-08-14 18:50 | Progress Note - Cardiology ---
Cardiology SOAP Progress Note Subjective: Shortness of breath with exertion No cp or palp or syncope Gen weakness No n/v/d Objective: I&O/Vital Signs 08/14/20 08/14/20 08/14/20 08/14/20 08:00 08:14 17:51 18:16 Temp 36.6 Pulse 60 Resp 20 B/P (MAP) 138/63 (88) Pulse Ox 94 96 96 O2 Delivery Nasal Cannula Nasal Cannula Nasal Cannula Nasal Cannula O2 Flow Rate 3.00 3.00 3.00 3.00 08/14/20 00:00 Intake Total 1320 ml Balance 1320 ml Constitutional: AAO x 3, well-developed, well-nourished Respiratory: No accessory muscle use; other (good, bilateral air entry) Cardiovascular: regular rate-rhythm, S1 and S2, systolic murmur (soft DAPHNE at card base) Gastrointestional: No tender; soft; No guarding, No rebound; audible bowel sounds Extremities: swelling (mod, bilateral, pitting leg edema); No clubbing, No cyanosis Neurologic/Psychiatric: oriented x 3, other (moves all limbs equally) Results/Procedures: Labs Laboratory Tests 08/14/20 05:20: White Blood Count 19.0H, Red Blood Count 3.86, Hemoglobin 11.2L, Hematocrit 35, Mean Corpuscular Volume 91, Mean Corpuscular Hemoglobin 29, Mean Corpuscular Hemoglobin Concent 32, Red Cell Distribution Width 14.3, Platelet Count 344, Mean Platelet Volume 9.4, Immature Granulocyte % (Auto) 5, Neutrophils (%) (Auto) 78H, Lymphocytes (%) (Auto) 10L, Monocytes (%) (Auto) 7, Eosinophils (%) (Auto) 0, Basophils (%) (Auto) 0, Neutrophils # (Auto) 14.8H, Lymphocytes # (Auto) 1.9, Monocytes # (Auto) 1.3H, Eosinophils # (Auto) 0.1, Basophils # (Auto) 0.1, Immature Granulocyte # (Auto) 0.9H, Sodium Level 135, Potassium Level 4.2, Chloride Level 99, Carbon Dioxide Level 27, Anion Gap 9, Blood Urea Nitrogen 26H, Creatinine 0.93, Estimat Glomerular Filtration Rate 57, BUN/Creatinine Ratio 28, Glucose Level 105, Calcium Level 8.6, Corrected Calcium 9.2, Total Bilirubin 0.6, Aspartate Amino Transf (AST/SGOT) 18, Alanine Aminotransferase (ALT/SGPT) 30, Alkaline Phosphatase 74, Total Protein 6.2L, Albumin 3.2 Laboratory Tests 08/14/20 05:20 A/P: Assessment: Uncontrolled hypertension - improved Ac resp insuff due to pneumonia, managed by primary care team. Acute diastolic CHF, currently clinically compensated - echocardiogram done on August 04, 2020 showing normal left ventricular systolic function, ejection fraction 60 percent, mild mitral regurgitation, mild aortic s tenosis, pulmonary artery pressure of 40-45 mmHg Chronic, bilateral leg edema, likely due to venous insuff Sinus node dysfunction, history of permanent pacemaker, alternating between sinus rhythm and atrial paced rhythm Paroxysmal atrial fibrillation, on rivaroxaban CKD-3 Hyperlipidemia Plan: * BP improved following adjustment in regimen * Continue current regimen * Monitor labs BRIE LLANOS MD FACP [facility] Aug 14, 2020 18:50
[2020-08-14] MEDS: MELATONIN 3 MG TABLET PO PRN (21:55)
[2020-08-14] MEDS: LATANOPROST 0.005% (XALATAN) OPHTH SOLN 2.5 ML OU SCH (21:56)
[2020-08-15 06:00] VITALS: BP 129/69
--- NOTE | 2020-08-15 06:11 | PM&R Progress Note ---
Subjective HPI/CC On Admission Date Seen by Provider: Aug 15, 2020 Time Seen by Provider: 13:00 Subjective/Events-last exam 08/15/20: No complaints No pain Participating well with therapy BM yesterday Decreased steroids 08/14/20: Decreasing Prednisone dose now Elevated wbc noted from steroid effect ETTA wraps to legs 3L/min O2 maintained No pain BM+ 08/13/20: Pt doing a lot better BP better, Norvasc added a couple of days has really helped Edema is much improved Labs will be checked tomorrow due to elevated wbc 08/12/20: Pt having no issues BP still slightly high Bowels moved today Checked meds and labs 08/11/20: Pt doing pretty well WBC 17,000 but lactic acid and Procalcitonin was normal Chest CXR ordered but not completed yet Elevated BP managed by Dr. Brower Wrapped her legs B/L O2 sat 95% on oxygen when she is exerting herself Using her IS 08/10/20: Patient doing well Dr Brower started Norvasc 5mg for elevated BP Buttocks are sore so placed pad in chair No laxatives needed Potassium changed Lasix changed Increased transfer ability 08/09/20: Patient doing well No complaints IV abx completed Holding laxatives due to loose stools 08/08/20: Patient feels good No pain reported O2 maintained Checked meds and labs 08/07/20: Patient doing well Settling in well in IRF No pain reported BM today and a bit loose Checked meds and labs Review of Systems General: Fatigue, Malaise Neurological: Weakness Objective Exam Vital Signs Vital Signs Date Time Temp Pulse Resp B/P (MAP) Pulse Ox O2 Delivery O2 Flow Rate FiO2 08/15/20 16:00 36.8 60 20 123/66 (85) 97 08/15/20 08:15 Nasal Cannula 3.00 08/13/20 13:55 32 Capillary Refill : General Appearance: No Apparent Distress, WD/WN, Chronically ill, Obese HEENT: PERRL/EOMI, Normal ENT Inspection, Pharynx Normal Neck: Full Range of Motion, Normal Inspection, Non Tender, Supple, Carotid Bruit Respiratory: Chest Non Tender, Lungs Clear, No Accessory Muscle Use, No Respiratory Distress, Decreased Breath Sounds Cardiovascular: No Edema, No Gallop, No JVD, No Murmur, Normal Peripheral Pulses, Irregularly Irregular Gastrointestinal: Normal Bowel Sounds, No Organomegaly, No Pulsatile Mass, Non Tender, Soft Back: Normal Inspection, No CVA Tenderness, No Vertebral Tenderness Extremity: Normal Capillary Refill, Normal Inspection, Normal Range of Motion, Non Tender, No Calf Tenderness, No Pedal Edema Neurologic/Psychiatric: Alert, Oriented x3, No Motor/Sensory Deficits, Normal Mood/Affect, Abnormal Gait, Motor Weakness Skin: Normal Color, Warm/Dry Lymphatic: No Adenopathy Results/Procedures Lab Patient resulted labs reviewed. FIM Transfers Therapy Code Descriptions/Definitions Functional [place] Measure: 0=Not Assessed/NA 4=Minimal Assistance 1=Total Assistance 5=Supervision or Setup 2=Maximal Assistance 6=Modified [place] 3=Moderate Assistance 7=Complete IndependenceSCALE: Activities may be completed with or without assistive devices. 6-Qjbqynxuqi-dpbjbom completes the activity by him/herself with no assistance from a helper. 5-Set-up or Clean-up Assistance-helper sets up or cleans up; patient completes activity. [place] assists only prior to or following the activity. 4-Supervision or Touching Assistance-helper provides verbal cues and/or touching/steadying and/or contact guard assistance as patient completes activity. Assistance may be provided throughout the activity or intermittently. 3-Partial/Moderate Assistance-helper does LESS THAN HALF the effort. [place] lifts, holds or supports trunk or limbs, but provides less than half the effort. 2-Substantial/Maximal Assistance-helper does MORE THAN HALF the effort. [place] lifts or holds trunk or limbs and provides more than half the effort. 7-Lilvwlebd-iudlux does ALL the effort. Patient does none of the effort to complete the activity. Or, the assistance of 2 or more helpers is required for the patient to complete the activity. If activity was not attempted, code reason: 7-Patient Refused. 9-Not Applicable-not attempted and the patient did not perform the activity before the current illness, exacerbation or injury. 10-Not Attempted due to Environmental Limitations-(lack of equipment, weather restraints, etc.). 88-Not Attempted due to Medical Conditions or Safety Concerns. Roll Left to Right (QC): 5 Sit to Lying (QC): 4 Sit to Stand (QC): 4 Chair/Xed-kd-Suxlv Xfer(QC): 4 Car Transfer (QC): 3 Gait Training Does the Patient Walk?: Yes Distance: 10' x2 Walk 10 feet (QC): 4 Walk 50 ft with 2 Turns(QC): 5 Walk 150 ft (QC): 5 Walking 10ft/uneven surface-QC: 3 Gait Persons Needed: 1 Gait Assistive Device: FWW Wheelchair Training Does the Pt Use a Wheelchair?: No Wheel 50 ft with 2 turns (QC): 4 Wheel 150 ft (QC): 9 Stair Training 1 Step (curb) (QC): 3 4 Steps (QC): 88 12 Steps (QC): 88 Balance Picking up an Object (QC): 88 ADL-Treatment Eating (QC): 6 Oral Hygiene (QC): 4 (SBA, chair placed behind pt. Able to complete with increased time in stance and sits post activity for breath recovery) Bathing Location: L Arm, R Arm, L Upper Leg, R Upper Leg, Chest, Abdomen, Perineal Area Shower/Bathe Self (QC): 3 (min A washing bottom/ LEs. Pt expresses she recieves assist from CG 2-3x per week and receives assist with these areas.) Upper Body Dressing (QC): 5 (s/u) Lower Body Dressing (QC): 3 (mod A: assist with threading BLE in breifs/ pants. Pt able to pull up to thighs, requires A for pulling over bottom) On/Off Footwear (QC): 1 (TD with wrapping/ socks) Toileting Hygiene (QC): 3 (min A bottom thoroughness.) Toilet Transfer (QC): 4 (SBA-CGA) Assessment/Plan Assessment and Plan Assess & Plan/Chief Complaint Assessment: COPD myopathy Acute on chronic respiratory failure Chronic O2 dependence Debility following PNA and UTI PHTN Edema chronic Chronic right foot drop uses AFO Edema chronic HTN OAB Plan: Monitor BP OAC Appreciate Cardiology IRF protocol 08/07/20: Monitor closely Abx Pain management O2 08/08/20: Monitor closely BP management O2 maintained 08/09/20: Monitor dyspnea O2 Monitor for falls 08/10/20: Monitor BP Appreciate Dr Brower 08/11/20: Monitor O2 Monitor wbc 08/12/20: Monitor O2 Monitor for falls 08/13/20: Monitor closely Monitor wbc 08/14/20: Monitor O2 Decrease steroids 08/15/20: Monitor for falls Decreased Prednisone (1) Myopathy (2) COPD (chronic obstructive pulmonary disease) (3) Afib Status: Acute (4) HLD (hyperlipidemia) Status: Chronic (5) HTN (hypertension) Status: Chronic (6) Obesity Status: Chronic (7) Acute on chronic respiratory failure with hypoxia Status: Acute (8) PNA (pneumonia) Status: Acute (9) Foot drop, right (10) Essential (primary) hypertension (11) Edema (12) Lower lobe pneumonia Status: Acute (13) Oxygen dependent (14) Overactive bladder (15) Glaucoma (16) Debility (17) Hypoxemia RIKA BERUMEN DO Aug 15, 2020 06:11
[2020-08-15] MEDS: predniSONE 20 MG TAB PO SCH (06:13)
[2020-08-15] MEDS: KCL 20 MEQ TAB (K-DUR) PO SCH (06:13)
[2020-08-15] MEDS: FUROSEMIDE 40 MG (LASIX) TAB PO SCH (07:20)
[2020-08-15] MEDS: amLODIPine 10 MG (NORVASC) TAB PO SCH (07:20)
[2020-08-15] MEDS: RIVAROXABAN 15 MG TABLET (XARELTO) PO SCH (07:20)
[2020-08-15] MEDS: DOCUSATE SODIUM 100 MG (COLACE) CAP PO SCH ×2 (07:20→20:11)
[2020-08-15] MEDS: CARVEDILOL 12.5 MG (COREG) TABLET PO SCH ×2 (07:21→17:54)
[2020-08-15] MEDS: SENNA W/DOCUSATE (SENOKOT S) TABLET PO SCH ×2 (07:21→20:11)
[2020-08-15] MEDS: polyethylene glycoL POWDER 17 GM (MIRALAX) PACK PO SCH ×2 (07:21→20:11)
[2020-08-15] MEDS: TIMOLOL MALEATE 0.5% 5 ML (TIMOPTIC) BTL OU SCH (07:23)
[2020-08-15] MEDS: RT-ALBUTEROL INHALER HFA (VENTOLIN HFA) 18 GM IH SCH ×2 (08:15→18:51)
--- NOTE | 2020-08-15 08:59 | Physical Therapy Daily Note ---
PT Daily Note-Current Subjective Pt. up in bed, agrees to therex in bed , toileting and gait Pain Location: No Pain Reported Mental Status Patient Orientation: Normal For Age Attachments: Oxygen (3L) Transfers SCALE: Activities may be completed with or without assistive devices. 2-Wfddfxexdx-ujpocty completes the activity by him/herself with no assistance from a helper. 5-Set-up or Clean-up Assistance-helper sets up or cleans up; patient completes activity. [place] assists only prior to or following the activity. 4-Supervision or Touching Assistance-helper provides verbal cues and/or t ouching/steadying and/or contact guard assistance as patient completes activity. Assistance may be provided throughout the activity or intermittently. 3-Partial/Moderate Assistance-helper does LESS THAN HALF the effort. [place] lifts, holds or supports trunk or limbs, but provides less than half the effort. 2-Substantial/Maximal Assistance-helper does MORE THAN HALF the effort. [place] lifts or holds trunk or limbs and provides more than half the effort. 5-Mrzrxrhst-skpggf does ALL the effort. Patient does none of the effort to complete the activity. Or, the assistance of 2 or more helpers is required for the patient to complete the activity. If activity was not attempted, code reason: 7-Patient Refused. 9-Not Applicable-not attempted and the patient did not perform the activity before the current illness, exacerbation or injury. 10-Not Attempted due to Environmental Limitations-(lack of equipment, weather restraints, etc.). 88-Not Attempted due to Medical Conditions or Safety Concerns. Roll Left & Right (QC): 6 Lying to Sitting/Side of Bed(Q: 6 Sit to Stand (QC): 5 Chair/Gza-qs-Ohfai Xfer(QC): 5 Toilet Transfer (QC): 6 work on safe chair and surface approaches, backing etc Weight Bearing Full Weight Bearing Full Weight Bearing Gait Training Does the Patient Walk?: Yes Walk 10 feet (QC): 5 Walk 50 ft with 2 Turns(QC): 5 Gait Persons Needed: 1 Gait Assistive Device: FWW gait training with safety instruction regarding extended O2 tubing management. [id number], 75ftx2 O2 sats on 3L O2 consistently>95% but pt. audibly dyspneic and requires seated rest breaks Exercises Supine Ex: Ankle pumps (assisted R HC stretches 4 x 20s), Quad Set, Rolling, Glut sets, Heel Slides, Short Arc Quads, Scooting, Straight leg raise, Hip abd/add Supine Reps: 15 Treatments toileted managing briefs and clean up as well as hand washing and teeth SBA, up in recliner after Rx with LEs elevated and oconnell at hand Assessment Current Status: Good Progress continues SOA with activity but sats WNLs PT Short Term Goals Short Term Goals Time Frame: Aug 20, 2020 Lying to sitting on side of be: 4 Sit to stand: 4 Chair/cbh-wq-nihik transfer: 4 Walk 150 feet: 4 PT Fci Goals Fci Goals PT Fci Goals Time Frame: Aug 27, 2020 Roll Left & Right (QC): 6 Sit to Lying (QC): 6 Lying-Sitting on Side/Bed(QC): 6 Sit to Stand (QC): 6 Chair/Dbl-md-Paaaf Xfer(QC): 6 Toilet Transfer (QC): 6 Car Transfer (QC): 5 Does the Patient Walk: Yes Walk 10 feet (QC): 6 Walk 50ft with 2 Turns (QC): 6 Walk 150 ft (QC): 6 Walking 10ft on Uneven Surface: 4 1 Step (curb) (QC): 4 4 Steps (QC): 4 12 Steps (QC): 9 Picking up an Object (QC): 9 Wheel 50 feet with 2 turns (QC: 9 Wheel 150 feet: 9 PT Plan Treatment/Plan Treatment Plan: Continue Plan of Care Treatment Plan: Bed Mobility, Education, Functional Activity Chrissy, Functional Strength, Group Therapy, Gait, Safety, Therapeutic Exercise, Transfers Treatment Duration: Aug 27, 2020 Frequency: At least 5 of 7 days/Wk (IRF) Estimated Hrs Per Day: 1.5 hours per day Patient and/or Family Agrees t: Yes Safety Risks/Education Patient Education: Gait Training, Transfer Techniques, Correct Positioning, Disease Process, Safety Issues Teaching Recipient: Patient Teaching Methods: Demonstration, Discussion Response to Teaching: Verbalize Understanding, Return Demonstration, Reinforcement Needed Time/GCodes Time In: 800 Time Out: 900 Total Billed Treatment Time: 60 Total Billed Treatment 1,EX20m,FA15m,GT25m DERIAN MERCADO PTA Aug 15, 2020 08:59
--- NOTE | 2020-08-15 10:32 | Occupational Ther Daily Note ---
OT Current Status-Daily Note Subjective Pt AxO, agrees to tx post-PT session. Pt denies pain, desires sponge bath prior to dressing. Pt requires minimal cues for breath through nose during tx. 02 monitored through tx, >95% throughout. ADL-Treatment Therapy Code Descriptions/Definitions Functional [place] Measure: 0=Not Assessed/NA 4=Minimal Assistance 1=Total Assistance 5=Supervision or Setup 2=Maximal Assistance 6=Modified [place] 3=Moderate Assistance 7=Complete IndependenceSCALE: Activities may be completed with or without assistive devices. 8-Fuhtqoctcc-jhtbqrc completes the activity by him/herself with no assistance from a helper. 5-Set-up or Clean-up Assistance-helper sets up or cleans up; patient completes activity. [place] assists only prior to or following the activity. 4-Supervision or Touching Assistance-helper provides verbal cues and/or to uching/steadying and/or contact guard assistance as patient completes activity. Assistance may be provided throughout the activity or intermittently. 3-Partial/Moderate Assistance-helper does LESS THAN HALF the effort. [place] lifts, holds or supports trunk or limbs, but provides less than half the effort. 2-Substantial/Maximal Assistance-helper does MORE THAN HALF the effort. [place] lifts or holds trunk or limbs and provides more than half the effort. 0-Ztlqdmgfq-ylpmbw does ALL the effort. Patient does none of the effort to complete the activity. Or, the assistance of 2 or more helpers is required for the patient to complete the activity. If activity was not attempted, code reason: 7-Patient Refused. 9-Not Applicable-not attempted and the patient did not perform the activity before the current illness, exacerbation or injury. 10-Not Attempted due to Environmental Limitations-(lack of equipment, weather restraints, etc.). 88-Not Attempted due to Medical Conditions or Safety Concerns. Eating (QC): 6 Oral Hygiene (QC): 4 (SBA at sink) Bathing Location: L Arm, R Arm, L Upper Leg, R Upper Leg, Chest, Abdomen, Perineal Area Shower/Bathe Self (QC): 4 (SBA for sponge bath. Bottom and LEs not cleansed, but pt able to complete all other tasks in stance/ in sit in front of sink.) Upper Body Dressing (QC): 5 (gathered for pt, completes in sit.) Lower Body Dressing (QC): 3 (use of systems accountant for breifs. Min A for orientation/ toe stuck in undergarments. SBA pant donning.) On/Off Footwear: 1 (TD for wrapping/ donning socks this date.) Toileting Hygiene (QC): 4 (SBA in stance for lola care.) Toilet Transfer (QC): 4 (SBA, use of walker. OT manages 02 tubing.) Other Treatment Pt completes sit to stand from recliner with CGA. Ambulates to bathroom to complete sponge bath/ dressing in sit as outlined. Pt completes oral care/ hand hygiene in sit/ in stance. Pt completes toileting (once at beginning of session/ once at end of session) with SBA. Pt ambulates ~50 feet to chair, breath monitored, 02 >95%. Pt takes rest break, requires min A from sit to stand from lower chairs. Ambulates to gym, completing UE arm bike ex with minimal resistance for 10 minutes, resting every 2 to assess HR and 02. All WNR. Pt ambulates to room, resting 1x. Pt requests bathroom, completes with SBA. Sits in recliner with LE's elevated, all needs met, call light in reach. Education OT Patient Education: Correct positioning, Exercise program, Progress toward Goal/Update tx plan, Purpose of tx/functional activities, Safety issues, Transfer techniques Teaching Recipient: Patient Teaching Methods: Demonstration, Discussion Response to Teaching: Verbalize Understanding, Return Demonstration OT Short Term Goals Short Term Goals Time Frame: Aug 15, 2020 Toileting hygiene: 4 Upper body dressin Lower body dressin Putting on/taking off footwear: 5 OT Audit Analyst Goals Audit Analyst Goals Time Frame: Aug 29, 2020 Eating (QC): 6 Oral Hygiene (QC): 6 Toileting Hygiene (QC): 6 Shower/Bathe Self (QC): 4 Upper Body Dressing (QC): 6 Lower Body Dressing (QC): 6 On/Off Footwear (QC): 6 Additional Goals: 1-Demonstrate ADL Tasks, 2-Verbalize Understanding, 3-Im proveStrength/Chrissy 1=Demonstrate adherence to instructed precautions during ADL tasks. 2=Patient will verbalize/demonstrate understanding of assistive devices/modifications for ADL. 3=Patient will improve strength/tolerance for activity to enable patient to perform ADL's. OT Education/Plan Problem List/Assessment Assessment: Decreased Activ Tolerance, Decreased UE Strength, Dependent Transfers, Edema, Impaired Funct Balance, Impaired I ADL's, Impaired Self-Care Skills Discharge Recommendations Plan/Recommendations: Continue POC Therapy Discharge Recommendati: Scheduled Assistance, Bath Aide, Home & Family Treatment Plan/Plan of Care Treatment,Training & Education: Yes Patient would benefit from OT for education, treatment and training to promote independence in ADL's, mobility, safety and/or upper extremity function for ADL's. Plan of Care: ADL Retraining, Functional Mobility, Group Exercise/Act as Ind, UE Funct Exercise/Act Treatment Duration: Aug 29, 2020 Frequency: At least 5 of 7 days/Wk (IRF) Estimated Hrs Per Day: 1.5 hours per day Rehab Potential: Good Time/GCodes Start Time: 09:00 Stop Time: 10:30 Total Time Billed (hr/min): 90 Billed Treatment Time 1, ADL 4 (60), EX 2 (30)= 90 KODI LEO OTR Aug 15, 2020 10:32
--- NOTE | 2020-08-15 13:41 | Physical Therapy Daily Note ---
PT Daily Note-Current Subjective Pt. up in recliner, family member present. Pain Location: No Pain Reported Mental Status Patient Orientation: Normal For Age Attachments: Oxygen (3L) Transfers SCALE: Activities may be completed with or without assistive devices. 5-Vguayxtpyn-mtqgfka completes the activity by him/herself with no assistance from a helper. 5-Set-up or Clean-up Assistance-helper sets up or cleans up; patient completes activity. [place] assists only prior to or following the activity. 4-Supervision or Touching Assistance-helper provides verbal cues and/or touching/steadying and/or contact guard assistance as patient completes activity. Assistance may be provided throughout the activity or intermittently. 3-Partial/Moderate Assistance-helper does LESS THAN HALF the effort. [place] lifts, holds or supports trunk or limbs, but provides less than half the effort. 2-Substantial/Maximal Assistance-helper does MORE THAN HALF the effort. [place] lifts or holds trunk or limbs and provides more than half the effort. 4-Ykywdpwhq-bkqbcz does ALL the effort. Patient does none of the effort to complete the activity. Or, the assistance of 2 or more helpers is required for the patient to complete the activity. If activity was not attempted, code reason: 7-Patient Refused. 9-Not Applicable-not attempted and the patient did not perform the activity before the current illness, exacerbation or injury. 10-Not Attempted due to Environmental Limitations-(lack of equipment, weather restraints, etc.). 88-Not Attempted due to Medical Conditions or Safety Concerns. Sit to Stand (QC): 5 pt. needs reminders to push from arm of chairs, pt. struggles reaching for FWW to come up etc Weight Bearing Full Weight Bearing Full Weight Bearing Gait Training Gait Assistive Device: FWW 160ft x 2, 25x1 CGA, noted dyspnea but O2 sats >95% Exercises Seated Therapy Exercises: Sit to stand, Long arc quads Seated Reps: 10 NuStep Minutes: 9 NuStep Workload: 3 Treatments up in recliner after Rx, call oconnell at side, pillows for positioning comfort after Rx, LEs elevated Assessment Current Status: Good Progress PT Short Term Goals Short Term Goals Time Frame: Aug 20, 2020 Lying to sitting on side of be: 4 Sit to stand: 4 Chair/iwv-cc-rxqqe transfer: 4 Walk 150 feet: 4 PT Coach Driver Goals Detention Goals PT Detention Goals Time Frame: Aug 27, 2020 Roll Left & Right (QC): 6 Sit to Lying (QC): 6 Lying-Sitting on Side/Bed(QC): 6 Sit to Stand (QC): 6 Chair/Szy-el-Ibtpe Xfer(QC): 6 Toilet Transfer (QC): 6 Car Transfer (QC): 5 Does the Patient Walk: Yes Walk 10 feet (QC): 6 Walk 50ft with 2 Turns (QC): 6 Walk 150 ft (QC): 6 Walking 10ft on Uneven Surface: 4 1 Step (curb) (QC): 4 4 Steps (QC): 4 12 Steps (QC): 9 Picking up an Object (QC): 9 Wheel 50 feet with 2 turns (QC: 9 Wheel 150 feet: 9 PT Plan Treatment/Plan Treatment Plan: Continue Plan of Care Treatment Plan: Bed Mobility, Education, Functional Activity Chrissy, Functional Strength, Group Therapy, Gait, Safety, Therapeutic Exercise, Transfers Treatment Duration: Aug 27, 2020 Frequency: At least 5 of 7 days/Wk (IRF) Estimated Hrs Per Day: 1.5 hours per day Patient and/or Family Agrees t: Yes Safety Risks/Education Patient Education: Gait Training, Transfer Techniques Time/GCodes Time In: 1300 Time Out: 1330 Total Billed Treatment Time: 30 Total Billed Treatment 1,GT16,EX14 DERIAN MERCADO DIETARY TECH Aug 15, 2020 13:41
[2020-08-15 16:00] VITALS: BP 123/66
[2020-08-15] MEDS: MELATONIN 3 MG TABLET PO PRN (20:10)
[2020-08-15] MEDS: LATANOPROST 0.005% (XALATAN) OPHTH SOLN 2.5 ML OU SCH (20:10)
[2020-08-16 05:50] VITALS: BP 140/66
[2020-08-16] MEDS: KCL 20 MEQ TAB (K-DUR) PO SCH (06:33)
[2020-08-16] MEDS: predniSONE 20 MG TAB PO SCH (06:33)
[2020-08-16] MEDS: RT-ALBUTEROL INHALER HFA (VENTOLIN HFA) 18 GM IH SCH ×2 (07:00→18:43)
--- NOTE | 2020-08-16 08:40 | PM&R Progress Note ---
Subjective HPI/CC On Admission Date Seen by Provider: Aug 16, 2020 Time Seen by Provider: 14:15 Subjective/Events-last exam 08/16/20: Patient doing well Constipation noted No pain O2 maintained Edema improved 08/15/20: No complaints No pain Participating well with therapy BM yesterday Decreased steroids 08/14/20: Decreasing Prednisone dose now Elevated wbc noted from steroid effect ETTA wraps to legs 3L/min O2 maintained No pain BM+ 08/13/20: Pt doing a lot better BP better, Norvasc added a couple of days has really helped Edema is much improved Labs will be checked tomorrow due to elevated wbc 08/12/20: Pt having no issues BP still slightly high Bowels moved today Checked meds and labs 08/11/20: Pt doing pretty well WBC 17,000 but lactic acid and Procalcitonin was normal Chest CXR ordered but not completed yet Elevated BP managed by Dr. Brower Wrapped her legs B/L O2 sat 95% on oxygen when she is exerting herself Using her IS 08/10/20: Patient doing well Dr Brower started Norvasc 5mg for elevated BP Buttocks are sore so placed pad in chair No laxatives needed Potassium changed Lasix changed Increased transfer ability 08/09/20: Patient doing well No complaints IV abx completed Holding laxatives due to loose stools 08/08/20: Patient feels good No pain reported O2 maintained Checked meds and labs 08/07/20: Patient doing well Settling in well in IRF No pain reported BM today and a bit loose Checked meds and labs Review of Systems General: Fatigue Pulmonary: Dyspnea Objective Exam Vital Signs Vital Signs Date Time Temp Pulse Resp B/P (MAP) Pulse Ox O2 Delivery O2 Flow Rate FiO2 08/16/20 18:43 96 Nasal Cannula 3.00 08/16/20 16:16 36.7 60 20 117/70 (86) 08/13/20 13:55 32 Capillary Refill : General Appearance: No Apparent Distress, WD/WN, Chronically ill, Obese HEENT: PERRL/EOMI, Normal ENT Inspection, Pharynx Normal Neck: Full Range of Motion, Normal Inspection, Non Tender, Supple, Carotid Bruit Respiratory: Chest Non Tender, Lungs Clear, No Accessory Muscle Use, No Respiratory Distress, Decreased Breath Sounds Cardiovascular: No Edema, No Gallop, No JVD, No Murmur, Normal Peripheral Pulses, Irregularly Irregular Gastrointestinal: Normal Bowel Sounds, No Organomegaly, No Pulsatile Mass, Non Tender, Soft Back: Normal Inspection, No CVA Tenderness, No Vertebral Tenderness Extremity: Normal Capillary Refill, Normal Inspection, Normal Range of Motion, Non Tender, No Calf Tenderness, No Pedal Edema Neurologic/Psychiatric: Alert, Oriented x3, No Motor/Sensory Deficits, Normal Mood/Affect, Abnormal Gait, Motor Weakness Skin: Normal Color, Warm/Dry Lymphatic: No Adenopathy Results/Procedures Lab Patient resulted labs reviewed. FIM Transfers Therapy Code Descriptions/Definitions Functional [place] Measure: 0=Not Assessed/NA 4=Minimal Assistance 1=Total Assistance 5=Supervision or Setup 2=Maximal Assistance 6=Modified [place] 3=Moderate Assistance 7=Complete IndependenceSCALE: Activities may be completed with or without assistive devices. 3-Ecccrylexd-bkwelzn completes the activity by him/herself with no assistance from a helper. 5-Set-up or Clean-up Assistance-helper sets up or cleans up; patient completes activity. [place] assists only prior to or following the activity. 4-Supervision or Touching Assistance-helper provides verbal cues and/or touching/steadying and/or contact guard assistance as patient completes activity. Assistance may be provided throughout the activity or intermittently. 3-Partial/Moderate Assistance-helper does LESS THAN HALF the effort. [place] lifts, holds or supports trunk or limbs, but provides less than half the effort. 2-Substantial/Maximal Assistance-helper does MORE THAN HALF the effort. [place] lifts or holds trunk or limbs and provides more than half the effort. 9-Jfannjoah-cplcif does ALL the effort. Patient does none of the effort to complete the activity. Or, the assistance of 2 or more helpers is required for the patient to complete the activity. If activity was not attempted, code reason: 7-Patient Refused. 9-Not Applicable-not attempted and the patient did not perform the activity before the current illness, exacerbation or injury. 10-Not Attempted due to Environmental Limitations-(lack of equipment, weather restraints, etc.). 88-Not Attempted due to Medical Conditions or Safety Concerns. Roll Left to Right (QC): 6 Sit to Lying (QC): 4 Sit to Stand (QC): 5 Chair/Ihf-oy-Sihcw Xfer(QC): 5 Car Transfer (QC): 3 Gait Training Does the Patient Walk?: Yes Distance: 10' x2 Walk 10 feet (QC): 5 Walk 50 ft with 2 Turns(QC): 5 Walk 150 ft (QC): 5 Walking 10ft/uneven surface-QC: 3 Gait Persons Needed: 1 Gait Assistive Device: FWW Wheelchair Training Does the Pt Use a Wheelchair?: No Wheel 50 ft with 2 turns (QC): 4 Wheel 150 ft (QC): 9 Stair Training 1 Step (curb) (QC): 3 4 Steps (QC): 88 12 Steps (QC): 88 Balance Picking up an Object (QC): 88 ADL-Treatment Eating (QC): 6 Oral Hygiene (QC): 4 (SBA at sink) Bathing Location: L Arm, R Arm, L Upper Leg, R Upper Leg, Chest, Abdomen, Perineal Area Shower/Bathe Self (QC): 4 (SBA for sponge bath. Bottom and LEs not cleansed, but pt able to complete all other tasks in stance/ in sit in front of sink.) Upper Body Dressing (QC): 5 (gathered for pt, completes in sit.) Lower Body Dressing (QC): 3 (use of building and grounds supervisor for breifs. Min A for orientation/ toe stuck in undergarments. SBA pant donning.) On/Off Footwear (QC): 1 (TD for wrapping/ donning socks this date.) Toileting Hygiene (QC): 4 (SBA in stance for lola care.) Toilet Transfer (QC): 4 (SBA, use of walker. OT manages 02 tubing.) Assessment/Plan Assessment and Plan Assess & Plan/Chief Complaint Assessment: COPD myopathy Acute on chronic respiratory failure Chronic O2 dependence Debility following PNA and UTI PHTN Edema chronic Chronic right foot drop uses AFO Edema chronic HTN OAB Plan: Monitor BP OAC Appreciate Cardiology IRF protocol 08/07/20: Monitor closely Abx Pain management O2 08/08/20: Monitor closely BP management O2 maintained 08/09/20: Monitor dyspnea O2 Monitor for falls 08/10/20: Monitor BP Appreciate Dr Brower 08/11/20: Monitor O2 Monitor wbc 08/12/20: Monitor O2 Monitor for falls 08/13/20: Monitor closely Monitor wbc 08/14/20: Monitor O2 Decrease steroids 08/15/20: Monitor for falls Decreased Prednisone 08/16/20: Monitor closely Fall risk (1) Myopathy (2) COPD (chronic obstructive pulmonary disease) (3) Afib Status: Acute (4) HLD (hyperlipidemia) Status: Chronic (5) HTN (hypertension) Status: Chronic (6) Obesity Status: Chronic (7) Acute on chronic respiratory failure with hypoxia Status: Acute (8) PNA (pneumonia) Status: Acute (9) Foot drop, right (10) Essential (primary) hypertension (11) Edema (12) Lower lobe pneumonia Status: Acute (13) Oxygen dependent (14) Overactive bladder (15) Glaucoma (16) Debility (17) Hypoxemia RIKA BERUMEN DO Aug 16, 2020 08:40
[2020-08-16] MEDS: amLODIPine 10 MG (NORVASC) TAB PO SCH (08:50)
[2020-08-16] MEDS: RIVAROXABAN 15 MG TABLET (XARELTO) PO SCH (08:50)
[2020-08-16] MEDS: SENNA W/DOCUSATE (SENOKOT S) TABLET PO SCH ×2 (08:50→20:20)
[2020-08-16] MEDS: FUROSEMIDE 40 MG (LASIX) TAB PO SCH (08:50)
[2020-08-16] MEDS: CARVEDILOL 12.5 MG (COREG) TABLET PO SCH ×2 (08:51→18:13)
[2020-08-16] MEDS: TIMOLOL MALEATE 0.5% 5 ML (TIMOPTIC) BTL OU SCH (08:51)
[2020-08-16 09:10] VITALS: BP 149/78
[2020-08-16] MEDS: DOCUSATE SODIUM 100 MG (COLACE) CAP PO SCH ×2 (09:10→20:20)
[2020-08-16] MEDS: polyethylene glycoL POWDER 17 GM (MIRALAX) PACK PO SCH ×2 (09:20→20:24)
[2020-08-16 10:40] VITALS: BP 149/78
--- NOTE | 2020-08-16 10:48 | Physical Therapy Daily Note ---
PT Daily Note-Current Subjective Pt sitting in recliner upon arrival; agrees to PT tx after using the bathroom. Pain Numeric Pain Scale: 0-No Pain Location: No Pain Reported Mental Status Patient Orientation: Normal For Age Attachments: Oxygen (3L) Transfers SCALE: Activities may be completed with or without assistive devices. 8-Tvhtoaobkl-fnamaac completes the activity by him/herself with no assistance from a helper. 5-Set-up or Clean-up Assistance-helper sets up or cleans up; patient completes activity. [place] assists only prior to or following the activity. 4-Supervision or Touching Assistance-helper provides verbal cues and/or touching/steadying and/or contact guard assistance as patient completes activity. Assistance may be provided throughout the activity or intermittently. 3-Partial/Moderate Assistance-helper does LESS THAN HALF the effort. [place] lifts, holds or supports trunk or limbs, but provides less than half the effort. 2-Substantial/Maximal Assistance-helper does MORE THAN HALF the effort. [place] lifts or holds trunk or limbs and provides more than half the effort. 3-Aeyqtimax-bnmqqi does ALL the effort. Patient does none of the effort to complete the activity. Or, the assistance of 2 or more helpers is required for the patient to complete the activity. If activity was not attempted, code reason: 7-Patient Refused. 9-Not Applicable-not attempted and the patient did not perform the activity before the current illness, exacerbation or injury. 10-Not Attempted due to Environmental Limitations-(lack of equipment, weather restraints, etc.). 88-Not Attempted due to Medical Conditions or Safety Concerns. Sit to Stand (QC): 4 Toilet Transfer (QC): 4 Weight Bearing Full Weight Bearing Full Weight Bearing Gait Training Does the Patient Walk?: Yes Distance: 10' x2 Walk 10 feet (QC): 4 Gait Persons Needed: 1 Gait Assistive Device: FWW Exercises Seated Therapy Exercises: Ankle pumps, Long arc quads, Hip flexion, Hip abd/add, Glut set Seated Reps: 15 (x2) Treatments Pt completes sit<>stand from recliner using FWW w/ CGA. Pt ambulates to bathroom using FWW at CGA. Pt stands unsupported to doff/don LE clothing; PRESCHOOL EDUCATION DIRECTOR supervision. Pt stands unsupported at bathroom sink to wash/dry hands. Pt ambulates back to recliner using FWW w/ CGA. Pt completes seated ex. Pt remains in recliner w/ call light and bedside table w/in reach and all needs met, at end of tx. RN in room at end of tx to give medication. Assessment Current Status: Fair Progress Pt SOB limits pt endurance. Pt has increased BLE swelling. PT Short Term Goals Short Term Goals Time Frame: Aug 20, 2020 Lying to sitting on side of be: 4 Sit to stand: 4 Chair/ruy-hm-zagdb transfer: 4 Walk 150 feet: 4 PT Group Home Goals Group Home Goals PT Group Home Goals Time Frame: Aug 27, 2020 Roll Left & Right (QC): 6 Sit to Lying (QC): 6 Lying-Sitting on Side/Bed(QC): 6 Sit to Stand (QC): 6 Chair/Bel-dy-Nkvra Xfer(QC): 6 Toilet Transfer (QC): 6 Car Transfer (QC): 5 Does the Patient Walk: Yes Walk 10 feet (QC): 6 Walk 50ft with 2 Turns (QC): 6 Walk 150 ft (QC): 6 Walking 10ft on Uneven Surface: 4 1 Step (curb) (QC): 4 4 Steps (QC): 4 12 Steps (QC): 9 Picking up an Object (QC): 9 Wheel 50 feet with 2 turns (QC: 9 Wheel 150 feet: 9 PT Plan Problem List Problem List: Activity Tolerance, Functional Strength, Safety, Balance, Gait, Transfer, Bed Mobility, ROM Treatment/Plan Treatment Plan: Continue Plan of Care Treatment Plan: Bed Mobility, Education, Functional Activity Chrissy, Functional Strength, Group Therapy, Gait, Safety, Therapeutic Exercise, Transfers Treatment Duration: Aug 27, 2020 Frequency: At least 5 of 7 days/Wk (IRF) Estimated Hrs Per Day: 1.5 hours per day Patient and/or Family Agrees t: Yes Safety Risks/Education Patient Education: Safety Issues Teaching Recipient: Patient Teaching Methods: Discussion Response to Teaching: Verbalize Understanding Time/GCodes Time In: 0847 Time Out: 09 Total Billed Treatment Time: 30 Total Billed Treatment 1, FA x1 (15m), EX x1 (15m) TYRA VARGAS PRESCHOOL EDUCATION DIRECTOR Aug 16, 2020 10:48
[2020-08-16 16:16] VITALS: BP 117/70
[2020-08-16] MEDS: LATANOPROST 0.005% (XALATAN) OPHTH SOLN 2.5 ML OU SCH (20:20)
[2020-08-16] MEDS: MELATONIN 3 MG TABLET PO PRN (20:20)
[2020-08-17 05:09] VITALS: BP 126/59
[2020-08-17] MEDS: predniSONE 20 MG TAB PO SCH (06:31)
[2020-08-17] MEDS: KCL 20 MEQ TAB (K-DUR) PO SCH (06:31)
--- NOTE | 2020-08-17 07:19 | PM&R Progress Note ---
Subjective HPI/CC On Admission Date Seen by Provider: Aug 17, 2020 Time Seen by Provider: 13:30 Subjective/Events-last exam 08/17/20: Patient doing well Constipation resolved Wrapped legs with ETTA wraps No pain reported More dyspnea noted during conversation 08/16/20: Patient doing well Constipation noted No pain O2 maintained Edema improved 08/15/20: No complaints No pain Participating well with therapy BM yesterday Decreased steroids 08/14/20: Decreasing Prednisone dose now Elevated wbc noted from steroid effect ETTA wraps to legs 3L/min O2 maintained No pain BM+ 08/13/20: Pt doing a lot better BP better, Norvasc added a couple of days has really helped Edema is much improved Labs will be checked tomorrow due to elevated wbc 08/12/20: Pt having no issues BP still slightly high Bowels moved today Checked meds and labs 08/11/20: Pt doing pretty well WBC 17,000 but lactic acid and Procalcitonin was normal Chest CXR ordered but not completed yet Elevated BP managed by Dr. Brower Wrapped her legs B/L O2 sat 95% on oxygen when she is exerting herself Using her IS 08/10/20: Patient doing well Dr Brower started Norvasc 5mg for elevated BP Buttocks are sore so placed pad in chair No laxatives needed Potassium changed Lasix changed Increased transfer ability 08/09/20: Patient doing well No complaints IV abx completed Holding laxatives due to loose stools 08/08/20: Patient feels good No pain reported O2 maintained Checked meds and labs 08/07/20: Patient doing well Settling in well in IRF No pain reported BM today and a bit loose Checked meds and labs Review of Systems General: Fatigue, Malaise Pulmonary: Dyspnea Objective Exam Vital Signs Vital Signs Date Time Temp Pulse Resp B/P (MAP) Pulse Ox O2 Delivery O2 Flow Rate FiO2 08/17/20 17:26 37.0 60 22 122/55 (77) 98 High Flow N/C 3.00 08/13/20 13:55 32 Capillary Refill : General Appearance: No Apparent Distress, WD/WN, Chronically ill, Obese HEENT: PERRL/EOMI, Normal ENT Inspection, Pharynx Normal Neck: Full Range of Motion, Normal Inspection, Non Tender, Supple, Carotid Bruit Respiratory: Chest Non Tender, Lungs Clear, No Accessory Muscle Use, No Respiratory Distress, Decreased Breath Sounds Cardiovascular: No Edema, No Gallop, No JVD, No Murmur, Normal Peripheral Pulses, Irregularly Irregular Gastrointestinal: Normal Bowel Sounds, No Organomegaly, No Pulsatile Mass, Non Tender, Soft Back: Normal Inspection, No CVA Tenderness, No Vertebral Tenderness Extremity: Normal Capillary Refill, Normal Inspection, Normal Range of Motion, Non Tender, No Calf Tenderness, No Pedal Edema Neurologic/Psychiatric: Alert, Oriented x3, No Motor/Sensory Deficits, Normal Mood/Affect, Abnormal Gait, Motor Weakness Skin: Normal Color, Warm/Dry Lymphatic: No Adenopathy Results/Procedures Lab Patient resulted labs reviewed. FIM Transfers Therapy Code Descriptions/Definitions Functional [place] Measure: 0=Not Assessed/NA 4=Minimal Assistance 1=Total Assistance 5=Supervision or Setup 2=Maximal Assistance 6=Modified [place] 3=Moderate Assistance 7=Complete IndependenceSCALE: Activities may be completed with or without assistive devices. 9-Qtvfyyubbo-pkenisc completes the activity by him/herself with no assistance from a helper. 5-Set-up or Clean-up Assistance-helper sets up or cleans up; patient completes activity. [place] assists only prior to or following the activity. 4-Supervision or Touching Assistance-helper provides verbal cues and/or touching/steadying and/or contact guard assistance as patient completes activity. Assistance may be provided throughout the activity or intermittently. 3-Partial/Moderate Assistance-helper does LESS THAN HALF the effort. [place] lifts, holds or supports trunk or limbs, but provides less than half the effort. 2-Substantial/Maximal Assistance-helper does MORE THAN HALF the effort. [place] lifts or holds trunk or limbs and provides more than half the effort. 6-Tvmdihiui-cushod does ALL the effort. Patient does none of the effort to c omplete the activity. Or, the assistance of 2 or more helpers is required for the patient to complete the activity. If activity was not attempted, code reason: 7-Patient Refused. 9-Not Applicable-not attempted and the patient did not perform the activity before the current illness, exacerbation or injury. 10-Not Attempted due to Environmental Limitations-(lack of equipment, weather restraints, etc.). 88-Not Attempted due to Medical Conditions or Safety Concerns. Roll Left to Right (QC): 6 Sit to Lying (QC): 4 Sit to Stand (QC): 4 Chair/Urc-xw-Xqqcl Xfer(QC): 5 Car Transfer (QC): 3 Gait Training Does the Patient Walk?: Yes Distance: 10' x2 Walk 10 feet (QC): 4 Walk 50 ft with 2 Turns(QC): 5 Walk 150 ft (QC): 5 Walking 10ft/uneven surface-QC: 3 Gait Persons Needed: 1 Gait Assistive Device: FWW Wheelchair Training Does the Pt Use a Wheelchair?: No Wheel 50 ft with 2 turns (QC): 4 Wheel 150 ft (QC): 9 Stair Training 1 Step (curb) (QC): 3 4 Steps (QC): 88 12 Steps (QC): 88 Balance Picking up an Object (QC): 88 ADL-Treatment Eating (QC): 6 Oral Hygiene (QC): 4 (SBA at sink) Bathing Location: L Arm, R Arm, L Upper Leg, R Upper Leg, Chest, Abdomen, Perineal Area Shower/Bathe Self (QC): 4 (SBA for sponge bath. Bottom and LEs not cleansed, but pt able to complete all other tasks in stance/ in sit in front of sink.) Upper Body Dressing (QC): 5 (gathered for pt, completes in sit.) Lower Body Dressing (QC): 3 (use of plant biology professor for breifs. Min A for orientation/ toe stuck in undergarments. SBA pant donning.) On/Off Footwear (QC): 1 (TD for wrapping/ donning socks this date.) Toileting Hygiene (QC): 4 (SBA in stance for lola care.) Toilet Transfer (QC): 4 (SBA, use of walker. OT manages 02 tubing.) Assessment/Plan Assessment and Plan Assess & Plan/Chief Complaint Assessment: COPD myopathy Acute on chronic respiratory failure Chronic O2 dependence Debility following PNA and UTI PHTN Edema chronic Chronic right foot drop uses AFO Edema chronic HTN OAB Plan: Monitor BP OAC Appreciate Cardiology IRF protocol 08/07/20: Monitor closely Abx Pain management O2 08/08/20: Monitor closely BP management O2 maintained 08/09/20: Monitor dyspnea O2 Monitor for falls 08/10/20: Monitor BP Appreciate Dr Brower 08/11/20: Monitor O2 Monitor wbc 08/12/20: Monitor O2 Monitor for falls 08/13/20: Monitor closely Monitor wbc 08/14/20: Monitor O2 Decrease steroids 08/15/20: Monitor for falls Decreased Prednisone 08/16/20: Monitor closely Fall risk 08/17/20: Monitor dyspnea closely Lasix maintained O2 (1) Myopathy (2) COPD (chronic obstructive pulmonary disease) (3) Afib Status: Acute (4) HLD (hyperlipidemia) Status: Chronic (5) HTN (hypertension) Status: Chronic (6) Obesity Status: Chronic (7) Acute on chronic respiratory failure with hypoxia Status: Acute (8) PNA (pneumonia) Status: Acute (9) Foot drop, right (10) Essential (primary) hypertension (11) Edema (12) Lower lobe pneumonia Status: Acute (13) Oxygen dependent (14) Overactive bladder (15) Glaucoma (16) Debility (17) Hypoxemia RIKA BERUMEN DO Aug 17, 2020 07:19
[2020-08-17 08:39] VITALS: BP 125/59
[2020-08-17] MEDS: RIVAROXABAN 15 MG TABLET (XARELTO) PO SCH (08:41)
[2020-08-17] MEDS: CARVEDILOL 12.5 MG (COREG) TABLET PO SCH ×2 (08:41→17:08)
[2020-08-17] MEDS: amLODIPine 10 MG (NORVASC) TAB PO SCH (08:41)
[2020-08-17] MEDS: DOCUSATE SODIUM 100 MG (COLACE) CAP PO SCH ×2 (08:41→20:43)
[2020-08-17] MEDS: FUROSEMIDE 40 MG (LASIX) TAB PO SCH (08:43)
[2020-08-17] MEDS: RT-ALBUTEROL INHALER HFA (VENTOLIN HFA) 18 GM IH SCH ×2 (08:53→21:06)
[2020-08-17] MEDS: SENNA W/DOCUSATE (SENOKOT S) TABLET PO SCH ×2 (09:00→20:46)
[2020-08-17] MEDS: polyethylene glycoL POWDER 17 GM (MIRALAX) PACK PO SCH ×2 (09:00→19:46)
[2020-08-17] MEDS: TIMOLOL MALEATE 0.5% 5 ML (TIMOPTIC) BTL OU SCH (11:55)
[2020-08-17 17:26] VITALS: BP 122/55
[2020-08-17] MEDS: MELATONIN 3 MG TABLET PO PRN (20:38)
[2020-08-17] MEDS: LATANOPROST 0.005% (XALATAN) OPHTH SOLN 2.5 ML OU SCH (20:39)
[2020-08-18 05:27] VITALS: BP 146/76
--- NOTE | 2020-08-18 06:11 | Pulmonary Progress Note ---
Subjective Time Seen by a Provider: 05:54 Sepsis Event Evaluation Height, Weight, BMI Height: '" Weight: lbs. oz. kg; 41.54 BMI Method: Exam Exam Vital Signs Date Time Temp Pulse Resp B/P (MAP) Pulse Ox O2 Delivery O2 Flow Rate FiO2 08/18/20 05:27 36.4 65 20 146/76 (99) 97 High Flow N/C 3.00 08/17/20 21:07 96 Nasal Cannula 3.00 08/17/20 20:10 Nasal Cannula 3.00 08/17/20 17:26 37.0 60 22 122/55 (77) 98 High Flow N/C 3.00 08/17/20 08:53 98 Nasal Cannula 3.00 08/17/20 08:39 125/59 (81) 08/17/20 08:00 Nasal Cannula 3.00 I & O 08/18/20 07:00 Intake Total 1800 ml Balance 1800 ml Height & Weight Height: '" Weight: lbs. oz. kg; 41.54 BMI Method: General Appearance: No Apparent Distress, WD/WN, Chronically ill, Obese HEENT: PERRL/EOMI, Normal ENT Inspection, Pharynx Normal Neck: Full Range of Motion, Normal Inspection, Non Tender, Supple, Carotid Bruit Respiratory: Chest Non Tender, Lungs Clear, No Accessory Muscle Use, No Respiratory Distress, Decreased Breath Sounds Cardiovascular: No Edema, No Gallop, No JVD, No Murmur, Normal Peripheral Pulses, Irregularly Irregular Extremity: Normal Capillary Refill, Normal Inspection, Normal Range of Motion, Non Tender, No Calf Tenderness, No Pedal Edema Neurologic/Psychiatric: Alert, Oriented x3, No Motor/Sensory Deficits, Normal Mood/Affect, Abnormal Gait, Motor Weakness Skin: Normal Color, Warm/Dry Lymphatic: No Adenopathy Assessment/Plan Assessment/Plan chronic respiratory failure with oxygen dependent COPD -Oxygen -Albuterol MDI - increase to TID -Add Advair and spiriva Leukocytosis- probably secondary to Prednisone -PCT is negative Diastolic CHF with pulmonary HTN -Will do out pt PFT and PSG -Echo: -aortic valve sclerosis, with mild regurgitation -moderate tricuspid regurgitation -Mod enlargement of left atrium Debility -PT/OT COPD -Oxygen -Nebulizer CKD JEANNE ROMAN DO Aug 18, 2020 06:11
[2020-08-18] MEDS: predniSONE 20 MG TAB PO SCH (06:22)
[2020-08-18] MEDS: KCL 20 MEQ TAB (K-DUR) PO SCH (06:22)
--- NOTE | 2020-08-18 07:06 | Diagnostic Imaging Report ---
INDICATION: Shortness of breath COMPARISON: 08/11 FINDINGS: The heart is enlarged increased slightly from prior. There is increased bilateral mixed interstitial and airspace opacity asymmetric greater right suspect for edema however pneumonia in the appropriate scenario could not be excluded. Small amounts of pleural fluid are not appreciably changed. There is no pneumothorax. IMPRESSION: Slight increased heart size, vascular caliber and probable development of pulmonary edema. A pneumonia asymmetric greater right could not be excluded in the appropriate clinical scenario. Dictated by: Dictated on workstation # [id number]
[2020-08-18] MEDS: CARVEDILOL 12.5 MG (COREG) TABLET PO SCH ×2 (07:20→18:19)
[2020-08-18] MEDS: amLODIPine 10 MG (NORVASC) TAB PO SCH (07:20)
[2020-08-18] MEDS: FUROSEMIDE 40 MG (LASIX) TAB PO SCH (07:22)
[2020-08-18] MEDS: RIVAROXABAN 15 MG TABLET (XARELTO) PO SCH (07:22)
[2020-08-18] MEDS: TIMOLOL MALEATE 0.5% 5 ML (TIMOPTIC) BTL OU SCH (07:24)
[2020-08-18] MEDS: polyethylene glycoL POWDER 17 GM (MIRALAX) PACK PO SCH ×2 (07:28→20:42)
[2020-08-18] MEDS: DOCUSATE SODIUM 100 MG (COLACE) CAP PO SCH ×2 (07:28→20:41)
[2020-08-18] MEDS: SENNA W/DOCUSATE (SENOKOT S) TABLET PO SCH ×2 (07:28→20:41)
[2020-08-18 08:31] LABS: CHLORIDE 103 MMOL/L (98-107); POTASSIUM 3.7 MMOL/L (3.6-5.0); SODIUM 138 MMOL/L (135-145)
[2020-08-18 08:32] LABS: CALCIUM 8.1 MG/DL (8.5-10.1)
[2020-08-18 08:33] LABS: GLUCOSE 94 MG/DL (70-105); TOTAL PROTEIN 5.5 GM/DL (6.4-8.2)
[2020-08-18 08:34] LABS: CARBON DIOXIDE 27 MMOL/L (21-32)
[2020-08-18 08:35] LABS: BILIRUBIN,TOTAL 0.6 MG/DL (0.1-1.0)
[2020-08-18 08:36] LABS: ALKALINE PHOSPHATASE 59 U/L (40-136)
[2020-08-18 08:37] LABS: CREATININE SERUM 0.83 MG/DL (0.60-1.30); GFR ESTIMATED > 60
[2020-08-18 08:38] LABS: BASOPHILS # (AUTO) 0.1 10^3/uL (0.0-0.1); BASOPHILS % (AUTO) 0 % (0-10); BUN/CREATININE RATIO 25; EOSINOPHILS # (AUTO) 0.2 10^3/uL (0.0-0.3); EOSINOPHILS % (AUTO) 2 % (0-10); HEMATOCRIT 32 % (35-52); HEMOGLOBIN 10.2 g/dL (11.5-16.0); LYMPHOCYTES # (AUTO) 1.6 10^3/uL (1.0-4.0); LYMPHOCYTES % (AUTO) 12 % (12-44); MEAN CORPUSCULAR HEMOGLOBIN 30 pg (25-34); MEAN CORPUSCULAR HGB CONC 32 g/dL (32-36); MEAN CORPUSCULAR VOLUME 92 fL (80-99); MEAN PLATELET VOLUME 9.7 fL (9.0-12.2); MONOCYTES # (AUTO) 1.1 10^3/uL (0.0-1.0); MONOCYTES % (AUTO) 9 % (0-12); NEUTROPHILS % (AUTO) 75 % (42-75); PLATELET COUNT 275 10^3/uL (130-400); WHITE BLOOD COUNT 13.4 10^3/uL (4.3-11.0)
[2020-08-18 08:40] LABS: ALANINE AMINOTRANSFERASE 25 U/L (0-55)
--- NOTE | 2020-08-18 08:40 | PM&R Progress Note ---
Subjective HPI/CC On Admission Date Seen by Provider: Aug 18, 2020 Time Seen by Provider: 10:30 Subjective/Events-last exam 08/18/20: Pt having some dyspnea but improved from yesterday Dr. Montiel did review chest X-ray and labs Bowels moved yesterday WBC down on Prednisone of 20 mg daily 08/17/20: Patient doing well Constipation resolved Wrapped legs with ETTA wraps No pain reported More dyspnea noted during conversation 08/16/20: Patient doing well Constipation noted No pain O2 maintained Edema improved 08/15/20: No complaints No pain Participating well with therapy BM yesterday Decreased steroids 08/14/20: Decreasing Prednisone dose now Elevated wbc noted from steroid effect ETTA wraps to legs 3L/min O2 maintained No pain BM+ 08/13/20: Pt doing a lot better BP better, Norvasc added a couple of days has really helped Edema is much improved Labs will be checked tomorrow due to elevated wbc 08/12/20: Pt having no issues BP still slightly high Bowels moved today Checked meds and labs 08/11/20: Pt doing pretty well WBC 17,000 but lactic acid and Procalcitonin was normal Chest CXR ordered but not completed yet Elevated BP managed by Dr. Brower Wrapped her legs B/L O2 sat 95% on oxygen when she is exerting herself Using her IS 08/10/20: Patient doing well Dr Brower started Norvasc 5mg for elevated BP Buttocks are sore so placed pad in chair No laxatives needed Potassium changed Lasix changed Increased transfer ability 08/09/20: Patient doing well No complaints IV abx completed Holding laxatives due to loose stools 08/08/20: Patient feels good No pain reported O2 maintained Checked meds and labs 08/07/20: Patient doing well Settling in well in IRF No pain reported BM today and a bit loose Checked meds and labs Review of Systems General: Fatigue Pulmonary: Dyspnea Objective Exam Vital Signs Vital Signs Date Time Temp Pulse Resp B/P (MAP) Pulse Ox O2 Delivery O2 Flow Rate FiO2 08/18/20 20:00 Nasal Cannula 3.00 08/18/20 19:38 96 08/18/20 17:52 36.7 62 20 131/63 (85) 08/13/20 13:55 32 Capillary Refill : General Appearance: No Apparent Distress, WD/WN, Chronically ill, Obese HEENT: PERRL/EOMI, Normal ENT Inspection, Pharynx Normal Neck: Full Range of Motion, Normal Inspection, Non Tender, Supple, Carotid Bruit Respiratory: Chest Non Tender, Lungs Clear, No Accessory Muscle Use, No Respiratory Distress, Decreased Breath Sounds Cardiovascular: No Edema, No Gallop, No JVD, No Murmur, Normal Peripheral Puls es, Irregularly Irregular Gastrointestinal: Normal Bowel Sounds, No Organomegaly, No Pulsatile Mass, Non Tender, Soft Back: Normal Inspection, No CVA Tenderness, No Vertebral Tenderness Extremity: Normal Capillary Refill, Normal Inspection, Normal Range of Motion, Non Tender, No Calf Tenderness, No Pedal Edema Neurologic/Psychiatric: Alert, Oriented x3, No Motor/Sensory Deficits, Normal Mood/Affect, Abnormal Gait, Motor Weakness Skin: Normal Color, Warm/Dry Lymphatic: No Adenopathy Results/Procedures Lab Laboratory Tests 08/18/20 05:58 Patient resulted labs reviewed. FIM Transfers Therapy Code Descriptions/Definitions Functional [place] Measure: 0=Not Assessed/NA 4=Minimal Assistance 1=Total Assistance 5=Supervision or Setup 2=Maximal Assistance 6=Modified [place] 3=Moderate Assistance 7=Complete IndependenceSCALE: Activities may be completed with or without assistive devices. 6-Kcqoheljln-wsmorjk completes the activity by him/herself with no assistance from a helper. 5-Set-up or Clean-up Assistance-helper sets up or cleans up; patient completes activity. [place] assists only prior to or following the activity. 4-Supervision or Touching Assistance-helper provides verbal cues and/or touching/steadying and/or contact guard assistance as patient completes activity. Assistance may be provided throughout the activity or intermittently. 3-Partial/Moderate Assistance-helper does LESS THAN HALF the effort. [place] lifts, holds or supports trunk or limbs, but provides less than half the effort. 2-Substantial/Maximal Assistance-helper does MORE THAN HALF the effort. [place] lifts or holds trunk or limbs and provides more than half the effort. 9-Knhijgqgq-jxhjgw does ALL the effort. Patient does none of the effort to complete the activity. Or, the assistance of 2 or more helpers is required for the patient to complete the activity. If activity was not attempted, code reason: 7-Patient Refused. 9-Not Applicable-not attempted and the patient did not perform the activity before the current illness, exacerbation or injury. 10-Not Attempted due to Environmental Limitations-(lack of equipment, weather restraints, etc.). 88-Not Attempted due to Medical Conditions or Safety Concerns. Roll Left to Right (QC): 6 Sit to Lying (QC): 4 Sit to Stand (QC): 4 Chair/Css-vf-Fnbeb Xfer(QC): 5 Car Transfer (QC): 3 Gait Training Does the Patient Walk?: Yes Distance: 10' x2 Walk 10 feet (QC): 4 Walk 50 ft with 2 Turns(QC): 5 Walk 150 ft (QC): 5 Walking 10ft/uneven surface-QC: 3 Gait Persons Needed: 1 Gait Assistive Device: FWW Wheelchair Training Does the Pt Use a Wheelchair?: No Wheel 50 ft with 2 turns (QC): 4 Wheel 150 ft (QC): 9 Stair Training 1 Step (curb) (QC): 3 4 Steps (QC): 88 12 Steps (QC): 88 Balance Picking up an Object (QC): 88 ADL-Treatment Eating (QC): 6 Oral Hygiene (QC): 4 (SBA at sink) Bathing Location: L Arm, R Arm, L Upper Leg, R Upper Leg, Chest, Abdomen, Perineal Area Shower/Bathe Self (QC): 4 (SBA for sponge bath. Bottom and LEs not cleansed, but pt able to complete all other tasks in stance/ in sit in front of sink.) Upper Body Dressing (QC): 5 (gathered for pt, completes in sit.) Lower Body Dressing (QC): 3 (use of insurance biller for breifs. Min A for orientation/ toe stuck in undergarments. SBA pant donning.) On/Off Footwear (QC): 1 (TD for wrapping/ donning socks this date.) Toileting Hygiene (QC): 4 (SBA in stance for lola care.) Toilet Transfer (QC): 4 (SBA, use of walker. OT manages 02 tubing.) Assessment/Plan Assessment and Plan Assess & Plan/Chief Complaint Assessment: COPD myopathy Acute on chronic respiratory failure Chronic O2 dependence Debility following PNA and UTI PHTN Edema chronic Chronic right foot drop uses AFO Edema chronic HTN OAB Plan: Monitor BP OAC Appreciate Cardiology IRF protocol 08/07/20: Monitor closely Abx Pain management O2 08/08/20: Monitor closely BP management O2 maintained 08/09/20: Monitor dyspnea O2 Monitor for falls 08/10/20: Monitor BP Appreciate Dr Brower 08/11/20: Monitor O2 Monitor wbc 08/12/20: Monitor O2 Monitor for falls 08/13/20: Monitor closely Monitor wbc 08/14/20: Monitor O2 Decrease steroids 08/15/20: Monitor for falls Decreased Prednisone 08/16/20: Monitor closely Fall risk 08/17/20: Monitor dyspnea closely Lasix maintained O2 08/18/20: Monitor closely O2 (1) Myopathy (2) COPD (chronic obstructive pulmonary disease) (3) Afib Status: Acute (4) HLD (hyperlipidemia) Status: Chronic (5) HTN (hypertension) Status: Chronic (6) Obesity Status: Chronic (7) Acute on chronic respiratory failure with hypoxia Status: Acute (8) PNA (pneumonia) Status: Acute (9) Foot drop, right (10) Essential (primary) hypertension (11) Edema (12) Lower lobe pneumonia Status: Acute (13) Oxygen dependent (14) Overactive bladder (15) Glaucoma (16) Debility (17) Hypoxemia RIKA BERUMEN DO Aug 18, 2020 08:40
--- NOTE | 2020-08-18 09:03 | Physical Therapy Daily Note ---
PT Daily Note-Current Subjective Pt. in bed, agrees to Rx, states she is having a hard time getting started today. Pt. states she has been at the same functional level for several days now and her breathing is no different Pain Location: No Pain Reported Mental Status Patient Orientation: Normal For Age Attachments: Oxygen (3L), Other-See Comments (mask out of room) Transfers SCALE: Activities may be completed with or without assistive devices. 7-Xrcvsxttdi-ymfsrre completes the activity by him/herself with no assistance from a helper. 5-Set-up or Clean-up Assistance-helper sets up or cleans up; patient completes activity. [place] assists only prior to or following the activity. 4-Supervision or Touching Assistance-helper provides verbal cues and/or touching/steadying and/or contact guard assistance as patient completes activity. Assistance may be provided throughout the activity or intermittently. 3-Partial/Moderate Assistance-helper does LESS THAN HALF the effort. [place] lifts, holds or supports trunk or limbs, but provides less than half the effort. 2-Substantial/Maximal Assistance-helper does MORE THAN HALF the effort. [place] lifts or holds trunk or limbs and provides more than half the effort. 8-Axeywrsfs-pulfiv does ALL the effort. Patient does none of the effort to complete the activity. Or, the assistance of 2 or more helpers is required for the patient to complete the activity. If activity was not attempted, code reason: 7-Patient Refused. 9-Not Applicable-not attempted and the patient did not perform the activity before the current illness, exacerbation or injury. 10-Not Attempted due to Environmental Limitations-(lack of equipment, weather restraints, etc.). 88-Not Attempted due to Medical Conditions or Safety Concerns. Lying to Sitting/Side of Bed(Q: 5 (with HOB up) Sit to Stand (QC): 5 Chair/Dbd-hp-Qfznh Xfer(QC): 5 Toilet Transfer (QC): 5 Weight Bearing Full Weight Bearing Full Weight Bearing Gait Training Does the Patient Walk?: Yes Walk 10 feet (QC): 5 Walk 50 ft with 2 Turns(QC): 5 Walk 150 ft (QC): 5 Gait Persons Needed: 1 Gait Assistive Device: FWW assist for O2 and occas cues for alignment Exercises Supine Ex: Ankle pumps, Quad Set, Rolling, Glut sets, Heel Slides, Short Arc Quads, Straight leg raise, Hip abd/add Supine Reps: 15 Seated Therapy Exercises: Ankle pumps, Sit to stand, Long arc quads, Hip flexion, Hip abd/add Seated Reps: 15 Treatments toileting and clean up at sink SBA Assessment Current Status: Good Progress Pt. feels she is at PLOF and has come as far as she can at this time, O2 sats on 3 L O2 consistently >94% but pt. still notably dyspneic PT Short Term Goals Short Term Goals Time Frame: Aug 20, 2020 Lying to sitting on side of be: 4 Sit to stand: 4 Chair/jyh-vx-mzctx transfer: 4 Walk 150 feet: 4 PT Chcf Goals Section Maintainer Goals PT Chcf Goals Time Frame: Aug 27, 2020 Roll Left & Right (QC): 6 Sit to Lying (QC): 6 Lying-Sitting on Side/Bed(QC): 6 Sit to Stand (QC): 6 Chair/Lio-kn-Fzdqy Xfer(QC): 6 Toilet Transfer (QC): 6 Car Transfer (QC): 5 Does the Patient Walk: Yes Walk 10 feet (QC): 6 Walk 50ft with 2 Turns (QC): 6 Walk 150 ft (QC): 6 Walking 10ft on Uneven Surface: 4 1 Step (curb) (QC): 4 4 Steps (QC): 4 12 Steps (QC): 9 Picking up an Object (QC): 9 Wheel 50 feet with 2 turns (QC: 9 Wheel 150 feet: 9 PT Plan Treatment/Plan Treatment Plan: Continue Plan of Care Treatment Plan: Bed Mobility, Education, Functional Activity Chrissy, Functional Strength, Group Therapy, Gait, Safety, Therapeutic Exercise, Transfers Treatment Duration: Aug 27, 2020 Frequency: At least 5 of 7 days/Wk (IRF) Estimated Hrs Per Day: 1.5 hours per day Patient and/or Family Agrees t: Yes Safety Risks/Education Patient Education: Gait Training, Transfer Techniques, Correct Positioning, Disease Process, Safety Issues Teaching Recipient: Patient Teaching Methods: Demonstration, Discussion Response to Teaching: Verbalize Understanding, Return Demonstration, Reinf orcement Needed Time/GCodes Time In: 800 Time Out: 900 Total Billed Treatment Time: 60 Total Billed Treatment 1,GT25m,FA20m,EX15m DERIAN MERCADO PTA Aug 18, 2020 09:03
--- NOTE | 2020-08-18 09:21 | Cardiology Progress Note ---
Subjective Date Seen by Provider: Aug 18, 2020 Time Seen by Provider: 18:30 Subjective/Events-last exam Denies CP, SOB, dizziness, or light-headedness. Notes chronic LE swelling that is improved from normal. No new complaints. Review of Systems General: No Chills, No Night Sweats, No Fatigue, No Malaise, No Appetite, No Other Pulmonary: No Dyspnea, No Cough, No Pleuritic Chest Pain, No Other Cardiovascular: No: Chest Pain, Palpitations, Orthopnea, Paroxysmal Noc. Dyspnea, Lt Headedness, Other Objective-Cardiology Exam Last Set of Vital Signs Vital Signs 08/13/20 08/18/20 13:55 17:52 Temp 36.7 Pulse 62 Resp 20 B/P (MAP) 131/63 (85) Pulse Ox 98 O2 Delivery High Flow N/C O2 Flow Rate 3.00 FiO2 32 Capillary Refill : I&O Intake and Output 08/18/20 00:00 Intake Total 2300 ml Balance 2300 ml Intake Oral 2300 ml # Voids 7 # Bowel Movements 3 General: Alert, Oriented X3, Cooperative HEENT: Atraumatic, PERRLA Neck: Supple, No JVD, No Thyromegaly Lungs: Other (bibasilar crackles, mildly increased work of breathing) Heart: Normal S1, Normal S2, No Murmurs, Other (tachycardia) Extremities: No Clubbing, No Cyanosis, No Edema, Normal Pulses, Other (bilateral non-pitting LE edema, right worse than left) Skin: No Rashes, No Breakdown, No Significant Lesion Neuro: Normal Gait, Normal Speech, Normal Tone Psych/Mental Status: Mental Status NL, Mood NL Results Lab Laboratory Tests 08/18/20 05:58 A/P-Cardiology Admission Diagnosis HTN CHF Dyspnea Assessment/Plan Hypertension, Better controlled today, continue to monitor Status post acute resp insuff due to pneumonia, managed by primary care team. CXR today shows increased heart size, probable pulmonary edema vs pneumonia, still having dyspnea, given Lasix COPD, on 3 L NC, managed by cow rider. Acute diastolic CHF, currently clinically compensated. Echocardiogram done on August 04, 2020 showing normal left ventricular systolic function, ejection fraction 60 percent, mild mitral regurgitation, mild aortic stenosis, pulmonary artery pressure of 40-45 mmHg. Currently maintained on Lasix 40 mg. Chronic, bilateral leg edema, likely due to venous insufficiency. Sinus node dysfunction, history of permanent pacemaker, alternating between sinus rhythm and atrial paced rhythm. Paroxysmal atrial fibrillation, on rivaroxaban CKD-3 Hyperlipidemia Supervisory-Addendum Brief Supervisory Addendum Participated in pt care: history, MDM, physical Personally performed: exam, history, MDM Care discussed with: Medical Student GWENDOLYN SAUL STUDENT Aug 18, 2020 09:21 CRUZ DANIELS MD Aug 18, 2020 19:16
[2020-08-18] MEDS: RT-ALBUTEROL INHALER HFA (VENTOLIN HFA) 18 GM IH SCH ×3 (09:50→19:38)
[2020-08-18] MEDS: UMECLIDINIUM BROMIDE (INCRUSE ELLIPTA) 7'S IH SCH (09:50)
[2020-08-18] MEDS: FLUTICASONE/SALMETEROL 113-14 (AIRDUO RespiCLICK) IH SCH ×2 (09:50→19:41)
--- NOTE | 2020-08-18 10:52 | Occupational Ther Daily Note ---
OT Current Status-Daily Note Subjective Pt alert, sitting in recliner. Pt agrees to therapy. No c/o pain at this time. Mental Status/Objective Patient Orientation: Person, Place, Time, Situation Attachments: Oxygen (3L) ADL-Treatment Pt agrees to shower. Pt ambulates using FWW to toilet. Transfers onto/off of toilet using FWW independently. Pt completes hygiene sitting on sink and manipulate clothing independently using FWW and grabbar. Pt transfers into shower with SBA. Completes shower sitting on shower bench using grabbars and hand held shower, SBA in standing while pt cleanses buttocks/lola area. After set up, pt able to don/doff upper body clothing by self. After set up, pt able to don/doff lower body clothing with practice director by self. Max A to don/doff socks and wrap B lower legs due to edema. Sitting at sink, pt completes oral care by self. After therapy, pt sitting in recliner with call light/phone in reach. All needs met in room. Therapy Code Descriptions/Definitions Functional [place] Measure: 0=Not Assessed/NA 4=Minimal Assistance 1=Total Assistance 5=Supervision or Setup 2=Maximal Assistance 6=Modified [place] 3=Moderate Assistance 7=Complete IndependenceSCALE: Activities may be completed with or without assistive devices. 3-Agmdasfsuz-hhnlqxl completes the activity by him/herself with no assistance from a helper. 5-Set-up or Clean-up Assistance-helper sets up or cleans up; patient completes activity. [place] assists only prior to or following the activity. 4-Supervision or Touching Assistance-helper provides verbal cues and/or touching/steadying and/or contact guard assistance as patient completes activity. Assistance may be provided throughout the activity or intermittently. 3-Partial/Moderate Assistance-helper does LESS THAN HALF the effort. [place] lifts, holds or supports trunk or limbs, but provides less than half the effort. 2-Substantial/Maximal Assistance-helper does MORE THAN HALF the effort. [place] lifts or holds trunk or limbs and provides more than half the effort. 6-Lhxgfvxpr-xfsitd does ALL the effort. Patient does none of the effort to complete the activity. Or, the assistance of 2 or more helpers is required for the patient to complete the activity. If activity was not attempted, code reason: 7-Patient Refused. 9-Not Applicable-not attempted and the patient did not perform the activity before the current illness, exacerbation or injury. 10-Not Attempted due to Environmental Limitations-(lack of equipment, weather restraints, etc.). 88-Not Attempted due to Medical Conditions or Safety Concerns. Oral Hygiene (QC): 6 Shower/Bathe Self (QC): 4 Upper Body Dressing (QC): 5 Lower Body Dressing (QC): 5 On/Off Footwear: 2 Toileting Hygiene (QC): 6 Toilet Transfer (QC): 6 Pt states that she has assistance when she showers 2x's per week. Assistance at that time to wrap B lower legs and don/doff socks. Pt only wraps B lower legs on shower days and does not take wraps off on the other days. Pt states that she has a 4WW at home and uses this to rest and recover. OT Short Term Goals Short Term Goals Time Frame: Aug 15, 2020 Toileting hygiene: 4 Upper body dressin Lower body dressin Putting on/taking off footwear: 5 OT Group Home Goals Pot Builder Goals Time Frame: Aug 29, 2020 Eating (QC): 6 Oral Hygiene (QC): 6 Toileting Hygiene (QC): 6 Shower/Bathe Self (QC): 4 Upper Body Dressing (QC): 6 Lower Body Dressing (QC): 6 On/Off Footwear (QC): 6 Additional Goals: 1-Demonstrate ADL Tasks, 2-Verbalize Understanding, 3- ImproveStrength/Chrissy 1=Demonstrate adherence to instructed precautions during ADL tasks. 2=Patient will verbalize/demonstrate understanding of assistive devices/modifications for ADL. 3=Patient will improve strength/tolerance for activity to enable patient to perform ADL's. OT Education/Plan Problem List/Assessment Assessment: Decreased Activ Tolerance, Impaired Self-Care Skills Discharge Recommendations Plan/Recommendations: Continue POC Treatment Plan/Plan of Care Patient would benefit from OT for education, treatment and training to promote independence in ADL's, mobility, safety and/or upper extremity function for ADL's. Plan of Care: ADL Retraining, Functional Mobility, Group Exercise/Act as Ind, UE Funct Exercise/Act Treatment Duration: Aug 29, 2020 Frequency: At least 5 of 7 days/Wk (IRF) Estimated Hrs Per Day: 1.5 hours per day Rehab Potential: Good Time/GCodes Start Time: 09:00 Stop Time: 10:30 Total Time Billed (hr/min): 90 Billed Treatment Time 1 visit-ADL 6 (90 min) FLORENCIO MARSHALL Aug 18, 2020 10:52
--- NOTE | 2020-08-18 14:47 | Physical Therapy Daily Note ---
PT Daily Note-Current Subjective Patient agrees to PT. No c/o. Mental Status Patient Orientation: Normal For Age Attachments: Oxygen (3L HF NC) Transfers SCALE: Activities may be completed with or without assistive devices. 2-Whjgfncndv-fvsoarc completes the activity by him/herself with no assistance from a helper. 5-Set-up or Clean-up Assistance-helper sets up or cleans up; patient completes activity. [place] assists only prior to or following the activity. 4-Supervision or Touching Assistance-helper provides verbal cues and/or touching/steadying and/or contact guard assistance as patient completes activity. Assistance may be provided throughout the activity or intermittently. 3-Partial/Moderate Assistance-helper does LESS THAN HALF the effort. [place] lifts, holds or supports trunk or limbs, but provides less than half the effort. 2-Substantial/Maximal Assistance-helper does MORE THAN HALF the effort. [place] lifts or holds trunk or limbs and provides more than half the effort. 4-Fwheajldd-ettjsa does ALL the effort. Patient does none of the effort to complete the activity. Or, the assistance of 2 or more helpers is required for the patient to complete the activity. If activity was not attempted, code reason: 7-Patient Refused. 9-Not Applicable-not attempted and the patient did not perform the activity before the current illness, exacerbation or injury. 10-Not Attempted due to Environmental Limitations-(lack of equipment, weather restraints, etc.). 88-Not Attempted due to Medical Conditions or Safety Concerns. Sit to Stand (QC): 6 Weight Bearing Full Weight Bearing Full Weight Bearing Gait Training Does the Patient Walk?: Yes Distance: 200' x 2 Walk 10 feet (QC): 5 Walk 50 ft with 2 Turns(QC): 5 Walk 150 ft (QC): 5 Gait Assistive Device: FWW Stair Training Stair Training: Handrails/: 2 handrails #of Steps: 4 1 Step (curb) (QC): 4 4 Steps (QC): 4 Stairs: Pattern: Step to Assessment Patient requires recovery periods due to SOA with activity. O2 in place 3L HF NC. Patient tolerated treatment well and remains up in recliner. Plan dismissal to home this week per report. PT Short Term Goals Short Term Goals Time Frame: Aug 20, 2020 Lying to sitting on side of be: 4 Sit to stand: 4 Chair/jgi-zr-sebga transfer: 4 Walk 150 feet: 4 PT Life Science Technical Officer Goals Life Science Technical Officer Goals PT Skilled Nursing Goals Time Frame: Aug 27, 2020 Roll Left & Right (QC): 6 Sit to Lying (QC): 6 Lying-Sitting on Side/Bed(QC): 6 Sit to Stand (QC): 6 Chair/Vwq-zr-Ygptj Xfer(QC): 6 Toilet Transfer (QC): 6 Car Transfer (QC): 5 Does the Patient Walk: Yes Walk 10 feet (QC): 6 Walk 50ft with 2 Turns (QC): 6 Walk 150 ft (QC): 6 Walking 10ft on Uneven Surface: 4 1 Step (curb) (QC): 4 4 Steps (QC): 4 12 Steps (QC): 9 Picking up an Object (QC): 9 Wheel 50 feet with 2 turns (QC: 9 Wheel 150 feet: 9 PT Plan Treatment/Plan Treatment Plan: Continue Plan of Care Treatment Plan: Bed Mobility, Education, Functional Activity Chrissy, Functional Strength, Group Therapy, Gait, Safety, Therapeutic Exercise, Transfers Treatment Duration: Aug 27, 2020 Frequency: At least 5 of 7 days/Wk (IRF) Estimated Hrs Per Day: 1.5 hours per day Patient and/or Family Agrees t: Yes Time/GCodes Time In: 1410 Time Out: 1440 Total Billed Treatment Time: 30 Total Billed Treatment 1 visit FA x 2 30 min MARYBEL JI PT Aug 18, 2020 14:47
[2020-08-18 17:52] VITALS: BP 131/63
[2020-08-18] MEDS: MELATONIN 3 MG TABLET PO PRN (20:41)
[2020-08-18] MEDS: LATANOPROST 0.005% (XALATAN) OPHTH SOLN 2.5 ML OU SCH (20:42)
[2020-08-19 06:00] VITALS: BP 156/70
[2020-08-19] MEDS: KCL 20 MEQ TAB (K-DUR) PO SCH (06:19)
[2020-08-19] MEDS: predniSONE 20 MG TAB PO SCH (06:19)
[2020-08-19] MEDS: UMECLIDINIUM BROMIDE (INCRUSE ELLIPTA) 7'S IH SCH (07:44)
[2020-08-19] MEDS: RT-ALBUTEROL INHALER HFA (VENTOLIN HFA) 18 GM IH SCH ×3 (07:44→18:50)
[2020-08-19] MEDS: FLUTICASONE/SALMETEROL 113-14 (AIRDUO RespiCLICK) IH SCH ×2 (07:45→18:50)
[2020-08-19] MEDS: DOCUSATE SODIUM 100 MG (COLACE) CAP PO SCH ×2 (08:45→20:17)
[2020-08-19] MEDS: FUROSEMIDE 40 MG (LASIX) TAB PO SCH (08:45)
[2020-08-19] MEDS: amLODIPine 10 MG (NORVASC) TAB PO SCH (08:45)
[2020-08-19] MEDS: RIVAROXABAN 15 MG TABLET (XARELTO) PO SCH (08:45)
[2020-08-19] MEDS: CARVEDILOL 12.5 MG (COREG) TABLET PO SCH ×2 (08:45→17:33)
[2020-08-19] MEDS: TIMOLOL MALEATE 0.5% 5 ML (TIMOPTIC) BTL OU SCH (08:45)
--- NOTE | 2020-08-19 09:07 | PM&R Progress Note ---
Subjective HPI/CC On Admission Date Seen by Provider: Aug 19, 2020 Time Seen by Provider: 09:15 Subjective/Events-last exam 08/19/20: Pt really back to her baseline Bowels are moving BP good 156/70 Mild edema with etta wraps on Looking to [facility] for skilled Oxygen at 3 liters at baseline 08/18/20: Pt having some dyspnea but improved from yesterday Dr. Montiel did review chest X-ray and labs Bowels moved yesterday WBC down on Prednisone of 20 mg daily 08/17/20: Patient doing well Constipation resolved Wrapped legs with ETTA wraps No pain reported More dyspnea noted during conversation 08/16/20: Patient doing well Constipation noted No pain O2 maintained Edema improved 08/15/20: No complaints No pain Participating well with therapy BM yesterday Decreased steroids 08/14/20: Decreasing Prednisone dose now Elevated wbc noted from steroid effect ETTA wraps to legs 3L/min O2 maintained No pain BM+ 08/13/20: Pt doing a lot better BP better, Norvasc added a couple of days has really helped Edema is much improved Labs will be checked tomorrow due to elevated wbc 08/12/20: Pt having no issues BP still slightly high Bowels moved today Checked meds and labs 08/11/20: Pt doing pretty well WBC 17,000 but lactic acid and Procalcitonin was normal Chest CXR ordered but not completed yet Elevated BP managed by Dr. Brower Wrapped her legs B/L O2 sat 95% on oxygen when she is exerting herself Using her IS 08/10/20: Patient doing well Dr Brower started Norvasc 5mg for elevated BP Buttocks are sore so placed pad in chair No laxatives needed Potassium changed Lasix changed Increased transfer ability 08/09/20: Patient doing well No complaints IV abx completed Holding laxatives due to loose stools 08/08/20: Patient feels good No pain reported O2 maintained Checked meds and labs 08/07/20: Patient doing well Settling in well in IRF No pain reported BM today and a bit loose Checked meds and labs Review of Systems General: Fatigue, Malaise Pulmonary: Dyspnea Neurological: Weakness Objective Exam Vital Signs Vital Signs Date Time Temp Pulse Resp B/P (MAP) Pulse Ox O2 Delivery O2 Flow Rate FiO2 08/19/20 20:00 Nasal Cannula 3.00 08/19/20 18:50 95 08/19/20 17:04 36.8 60 20 151/68 (95) Capillary Refill : General Appearance: No Apparent Distress, WD/WN, Chronically ill, Obese HEENT: PERRL/EOMI, Normal ENT Inspection, Pharynx Normal Neck: Full Range of Motion, Normal Inspection, Non Tender, Supple, Carotid Bruit Respiratory: Chest Non Tender, Lungs Clear, No Accessory Muscle Use, No Respiratory Distress, Decreased Breath Sounds Cardiovascular: No Edema, No Gallop, No JVD, No Murmur, Normal Peripheral Pulses, Irregularly Irregular Gastrointestinal: Normal Bowel Sounds, No Organomegaly, No Pulsatile Mass, Non Tender, Soft Back: Normal Inspection, No CVA Tenderness, No Vertebral Tenderness Extremity: Normal Capillary Refill, Normal Inspection, Normal Range of Motion, Non Tender, No Calf Tenderness, No Pedal Edema Neurologic/Psychiatric: Alert, Oriented x3, No Motor/Sensory Deficits, Normal Mood/Affect, Abnormal Gait, Motor Weakness Skin: Normal Color, Warm/Dry Lymphatic: No Adenopathy Results/Procedures Lab Patient resulted labs reviewed. FIM Transfers Therapy Code Descriptions/Definitions Functional [place] Measure: 0=Not Assessed/NA 4=Minimal Assistance 1=Total Assistance 5=Supervision or Setup 2=Maximal Assistance 6=Modified [place] 3=Moderate Assistance 7=Complete IndependenceSCALE: Activities may be completed with or without assistive devices. 6-Cyoiktquyy-ryfaicw completes the activity by him/herself with no assistance from a helper. 5-Set-up or Clean-up Assistance-helper sets up or cleans up; patient completes activity. [place] assists only prior to or following the activity. 4-Supervision or Touching Assistance-helper provides verbal cues and/or touching/steadying and/or contact guard assistance as patient completes activity. Assistance may be provided throughout the activity or intermittently. 3-Partial/Moderate Assistance-helper does LESS THAN HALF the effort. [place] lifts, holds or supports trunk or limbs, but provides less than half the effort. 2-Substantial/Maximal Assistance-helper does MORE THAN HALF the effort. [place] lifts or holds trunk or limbs and provides more than half the effort. 3-Szphkbjxt-biixqy does ALL the effort. Patient does none of the effort to complete the activity. Or, the assistance of 2 or more helpers is required for the patient to complete the activity. If activity was not attempted, code reason: 7-Patient Refused. 9-Not Applicable-not attempted and the patient did not perform the activity before the current illness, exacerbation or injury. 10-Not Attempted due to Environmental Limitations-(lack of equipment, weather restraints, etc.). 88-Not Attempted due to Medical Conditions or Safety Concerns. Roll Left to Right (QC): 6 Sit to Lying (QC): 4 Sit to Stand (QC): 6 Chair/Wps-hh-Bmmye Xfer(QC): 5 Car Transfer (QC): 3 Gait Training Does the Patient Walk?: Yes Distance: 200' x 2 Walk 10 feet (QC): 5 Walk 50 ft with 2 Turns(QC): 5 Walk 150 ft (QC): 5 Walking 10ft/uneven surface-QC: 3 Gait Persons Needed: 1 Gait Assistive Device: FWW Wheelchair Training Does the Pt Use a Wheelchair?: No Wheel 50 ft with 2 turns (QC): 4 Wheel 150 ft (QC): 9 Stair Training Stair Training: Handrails/: 2 handrails #of Steps: 4 1 Step (curb) (QC): 4 4 Steps (QC): 4 12 Steps (QC): 88 Stairs: Pattern: Step to Balance Picking up an Object (QC): 88 ADL-Treatment Eating (QC): 6 Oral Hygiene (QC): 6 Bathing Location: L Arm, R Arm, L Upper Leg, R Upper Leg, Chest, Abdomen, Perineal Area Shower/Bathe Self (QC): 4 Upper Body Dressing (QC): 5 Lower Body Dressing (QC): 5 On/Off Footwear (QC): 2 Toileting Hygiene (QC): 6 Toilet Transfer (QC): 6 Assessment/Plan Assessment and Plan Assess & Plan/Chief Complaint Assessment: COPD myopathy Acute on chronic respiratory failure Chronic O2 dependence Debility following PNA and UTI PHTN Edema chronic Chronic right foot drop uses AFO Edema chronic HTN OAB Plan: Monitor BP OAC Appreciate Cardiology IRF protocol 08/07/20: Monitor closely Abx Pain management O2 08/08/20: Monitor closely BP management O2 maintained 08/09/20: Monitor dyspnea O2 Monitor for falls 08/10/20: Monitor BP Appreciate Dr Brower 08/11/20: Monitor O2 Monitor wbc 08/12/20: Monitor O2 Monitor for falls 08/13/20: Monitor closely Monitor wbc 08/14/20: Monitor O2 Decrease steroids 08/15/20: Monitor for falls Decreased Prednisone 08/16/20: Monitor closely Fall risk 08/17/20: Monitor dyspnea closely Lasix maintained O2 08/18/20: Monitor closely O2 08/19/20: Needs NH at DC Monitor O2 (1) Myopathy (2) COPD (chronic obstructive pulmonary disease) (3) Afib Status: Acute (4) HLD (hyperlipidemia) Status: Chronic (5) HTN (hypertension) Status: Chronic (6) Obesity Status: Chronic (7) Acute on chronic respiratory failure with hypoxia Status: Acute (8) PNA (pneumonia) Status: Acute (9) Foot drop, right (10) Essential (primary) hypertension (11) Edema (12) Lower lobe pneumonia Status: Acute (13) Oxygen dependent (14) Overactive bladder (15) Glaucoma (16) Debility (17) Hypoxemia RIKA BERUMEN DO Aug 19, 2020 09:07
[2020-08-19] MEDS: polyethylene glycoL POWDER 17 GM (MIRALAX) PACK PO SCH ×2 (09:17→20:27)
[2020-08-19] MEDS: SENNA W/DOCUSATE (SENOKOT S) TABLET PO SCH ×2 (09:18→20:17)
--- NOTE | 2020-08-19 10:08 | Physical Therapy Daily Note ---
PT Daily Note-Current Subjective Pt sitting in recliner upon arrival. Pt agrees to PT. visits with FIELD SALES ENGINEER and pt to discuss next couple of days. Pain Location: No Pain Reported Mental Status Patient Orientation: Person, Place, Situation Attachments: Oxygen (3L), Other-See Comments (Ezequiel wrap on B LE) Transfers SCALE: Activities may be completed with or without assistive devices. 2-Twmnhmnnvi-hpypkgn completes the activity by him/herself with no assistance from a helper. 5-Set-up or Clean-up Assistance-helper sets up or cleans up; patient completes activity. [place] assists only prior to or following the activity. 4-Supervision or Touching Assistance-helper provides verbal cues and/or touching/steadying and/or contact guard assistance as patient completes activity. Assistance may be provided throughout the activity or intermittently. 3-Partial/Moderate Assistance-helper does LESS THAN HALF the effort. [place] lifts, holds or supports trunk or limbs, but provides less than half the effort. 2-Substantial/Maximal Assistance-helper does MORE THAN HALF the effort. [place] lifts or holds trunk or limbs and provides more than half the effort. 6-Qgukdfega-qhpazj does ALL the effort. Patient does none of the effort to complete the activity. Or, the assistance of 2 or more helpers is required for the patient to complete the activity. If activity was not attempted, code reason: 7-Patient Refused. 9-Not Applicable-not attempted and the patient did not perform the activity before the current illness, exacerbation or injury. 10-Not Attempted due to Environmental Limitations-(lack of equipment, weather restraints, etc.). 88-Not Attempted due to Medical Conditions or Safety Concerns. Sit to Stand (QC): 5 Weight Bearing Full Weight Bearing Full Weight Bearing Gait Training Does the Patient Walk?: Yes Distance: 150' x2 Walk 10 feet (QC): 5 Walk 50 ft with 2 Turns(QC): 5 Walk 150 ft (QC): 5 Gait Persons Needed: 1 Wheelchair Training Does the Pt Use a Wheelchair?: No Stair Training Stair Training: Handrails/: 2 handrails #of Steps: 4 1 Step (curb) (QC): 5 4 Steps (QC): 5 Stairs: Pattern: Step to Exercises Seated Therapy Exercises: Ankle pumps, Long arc quads, Hip flexion, Kicking activity, Glut set Seated Reps: 15 Treatments Discussion between SW, FIELD SALES ENGINEER & pt over what pt might need and SNF vs home for DC. Pt's son had contacted SNF & SW. Pt transfers to standing and use BR. Pt amb. in hallway then completes Seated EX . Pt takes RB before amb. in hallway. Pt returns to room to rest at end of tx. All needs met, call light in hand. Assessment Current Status: Good Progress Pt demonstrates SOA but remains ~94% on 3L during tx, RB to recover. PT Short Term Goals Short Term Goals Time Frame: Aug 20, 2020 Lying to sitting on side of be: 4 Sit to stand: 4 Chair/znk-zd-nwxbu transfer: 4 Walk 150 feet: 4 PT Fpc Goals Fpc Goals PT Driver Examiner Goals Time Frame: Aug 27, 2020 Roll Left & Right (QC): 6 Sit to Lying (QC): 6 Lying-Sitting on Side/Bed(QC): 6 Sit to Stand (QC): 6 Chair/Yzd-rg-Iuagn Xfer(QC): 6 Toilet Transfer (QC): 6 Car Transfer (QC): 5 Does the Patient Walk: Yes Walk 10 feet (QC): 6 Walk 50ft with 2 Turns (QC): 6 Walk 150 ft (QC): 6 Walking 10ft on Uneven Surface: 4 1 Step (curb) (QC): 4 4 Steps (QC): 4 12 Steps (QC): 9 Picking up an Object (QC): 9 Wheel 50 feet with 2 turns (QC: 9 Wheel 150 feet: 9 PT Plan Problem List Problem List: Activity Tolerance Treatment/Plan Treatment Plan: Continue Plan of Care Treatment Plan: Bed Mobility, Education, Functional Activity Chrissy, Functional Strength, Group Therapy, Gait, Safety, Therapeutic Exercise, Transfers Treatment Duration: Aug 27, 2020 Frequency: At least 5 of 7 days/Wk (IRF) Estimated Hrs Per Day: 1.5 hours per day Patient and/or Family Agrees t: Yes Safety Risks/Education Patient Education: Gait Training, Correct Positioning, Safety Issues Teaching Recipient: Patient Teaching Methods: Discussion Response to Teaching: Verbalize Understanding Time/GCodes Time In: 900 Time Out: 1000 Total Billed Treatment Time: 60 Total Billed Treatment 1, FA (20m), GT x2 (25m) & EX (15m) LEIDY CRUZ PTA Aug 19, 2020 10:08
--- NOTE | 2020-08-19 13:24 | Occupational Ther Daily Note ---
OT Current Status-Daily Note Subjective Pt AxO, agrees to tx. Pt denies pain, stating, "I've never had pain." Pt desires shower. Pt seen from [id number] with PT co-treat to address d/c and higher level functional tasks. OT addresses ADLs and UE movement/ standing balance for I/aDLs and PT addresses LE movement, balance, and gait. Pt's sister present start of session. Pt agrees to tx. Mental Status/Objective Patient Orientation: Normal For Age Attachments: Oxygen ADL-Treatment Therapy Code Descriptions/Definitions Functional [place] Measure: 0=Not Assessed/NA 4=Minimal Assistance 1=Total Assistance 5=Supervision or Setup 2=Maximal Assistance 6=Modified [place] 3=Moderate Assistance 7=Complete IndependenceSCALE: Activities may be completed with or without assistive devices. 3-Yrmuwxtyar-bwzsxew completes the activity by him/herself with no assistance from a helper. 5-Set-up or Clean-up Assistance-helper sets up or cleans up; patient completes activity. [place] assists only prior to or following the activity. 4-Supervision or Touching Assistance-helper provides verbal cues and/or touching/steadying and/or contact guard assistance as patient completes activity. Assistance may be provided throughout the activity or intermittently. 3-Partial/Moderate Assistance-helper does LESS THAN HALF the effort. [place] lifts, holds or supports trunk or limbs, but provides less than half the effort. 2-Substantial/Maximal Assistance-helper does MORE THAN HALF the effort. [place] lifts or holds trunk or limbs and provides more than half the effort. 8-Ozycdiojs-jrcoyp does ALL the effort. Patient does none of the effort to complete the activity. Or, the assistance of 2 or more helpers is required for the patient to complete the activity. If activity was not attempted, code reason: 7-Patient Refused. 9-Not Applicable-not attempted and the patient did not perform the activity before the current illness, exacerbation or injury. 10-Not Attempted due to Environmental Limitations-(lack of equipment, weather restraints, etc.). 88-Not Attempted due to Medical Conditions or Safety Concerns. Eating (QC): 6 Oral Hygiene (QC): 4 (SUP while standing at sink) Bathing Location: L Arm, R Arm, L Upper Leg, R Upper Leg, Chest, Abdomen, Perineal Area Shower/Bathe Self (QC): 3 (min A for bottom hygiene on this date. Pt completes all the other body locations with s/u while in sit.) Upper Body Dressing (QC): 5 (s/u) Lower Body Dressing (QC): 4 (SBA, use of structural steel painter for threading materials. SBA in stance. ) On/Off Footwear: 1 (doffed with TD. Use of lotion/ BLE wraps/ technical solution architect socks donned for pt. ) Toileting Hygiene (QC): 3 (min A for bottom thoroughness this date.) Toilet Transfer (QC): 4 (SBA with transfer, use of walker) Other Treatment Pt agrees to tx. Ambulates SBA to shower, completes showering and dressing in shower as outlined. Pt requires increased time for all tasks. Pt completes toileting SBA-SUP, oral care at sink without rest break with SBA-SUP. Pt ambulates to chair. LE's wrapped post lotioning with ETTA bandages for edema management. All needs met, call light in reach, pt's LEs elevated with comfort measures in place. [id number]: Pt seen from [id number] with PT co-treat to address d/c and higher level functional tasks. OT addresses ADLs and UE movement/ standing balance for I/aDLs and PT addresses LE movement, balance, and gait. Pt, sister, OT and SUPERVISOR ROVING discuss PLOF and pt's current level. From OT standpoint, pt at PLOF. Pt's sister states son may call to clarify situation as he was considering SNF placement. Pt's sister encouraged to allow son to call in if desired. Pt completes toileting, then stands at chair to complete balance task (CGA at stance from PT, pt reaches in all planes with CGA and mod cues for standing upright/ visual scanning). Pt able to complete with BUE doffed from walker with CGA. No LOB. Mod rest breaks for breath support. Left in recliner with all needs met, call light in reach, left with respiratory. Education OT Patient Education: Correct positioning, Exercise program, Progress toward Goal/Update tx plan, Purpose of tx/functional activities, Rehab process, Safety issues, Transfer techniques, Use of adapted equipment Teaching Recipient: Patient Teaching Methods: Demonstration, Discussion Response to Teaching: Verbalize Understanding, Return Demonstration OT Short Term Goals Short Term Goals Time Frame: Aug 15, 2020 Toileting hygiene: 4 Upper body dressin Lower body dressin Putting on/taking off footwear: 5 OT Fci Goals Clipping Marker Goals Time Frame: Aug 29, 2020 Eating (QC): 6 Oral Hygiene (QC): 6 Toileting Hygiene (QC): 6 Shower/Bathe Self (QC): 4 Upper Body Dressing (QC): 6 Lower Body Dressing (QC): 6 On/Off Footwear (QC): 6 Additional Goals: 1-Demonstrate ADL Tasks, 2-Verbalize Understanding, 3- ImproveStrength/Chrissy 1=Demonstrate adherence to instructed precautions during ADL tasks. 2=Patient will verbalize/demonstrate understanding of assistive devices/modifications for ADL. 3=Patient will improve strength/tolerance for activity to enable patient to perform ADL's. OT Education/Plan Problem List/Assessment Assessment: Decreased Activ Tolerance, Decreased UE Strength, Edema, Impaired Funct Balance, Impaired I ADL's, Impaired Self-Care Skills Discharge Recommendations Plan/Recommendations: Continue POC Therapy Discharge Recommendati: Scheduled Assistance, Bath Aide, Home & Family Treatment Plan/Plan of Care Treatment,Training & Education: Yes Patient would benefit from OT for education, treatment and training to promote independence in ADL's, mobility, safety and/or upper extremity function for ADL's. Plan of Care: ADL Retraining, Functional Mobility, Group Exercise/Act as Ind, UE Funct Exercise/Act Treatment Duration: Aug 29, 2020 Frequency: At least 5 of 7 days/Wk (IRF) Estimated Hrs Per Day: 1.5 hours per day Rehab Potential: Good Time/GCodes Start Time: 07:45 (1425) Stop Time: 08:45 (1455) Total Time Billed (hr/min): 90 Billed Treatment Time 60+30= total of 90 1, ADL 4 (60) 1, ADL, EX (30) PT co-treat to address d/c and higher level functional tasks. OT addresses ADLs and UE movement/ standing balance for I/aDLs and PT addresses LE movement, balance, and gait. KODI LEO OTR Aug 19, 2020 13:24
--- NOTE | 2020-08-19 15:47 | Physical Therapy Daily Note ---
PT Daily Note-Current Subjective Pt sitting in recliner visiting with sister upon arrival. Pt seen from 1454 with OT co-treat to address d/c and higher level functional tasks. OT addresses ADLs and UE movement/ standing balance for I/ADLs and PT addresses LE movement, balance, and gait. Pt's sister present start of session. Pt agrees to tx. Pain Location: No Pain Reported Mental Status Patient Orientation: Person, Place, Time, Situation Attachments: Oxygen (3L) Transfers SCALE: Activities may be completed with or without assistive devices. 9-Hbosoxoxhe-fvpyxqs completes the activity by him/herself with no assistance from a helper. 5-Set-up or Clean-up Assistance-helper sets up or cleans up; patient completes a ctivity. [place] assists only prior to or following the activity. 4-Supervision or Touching Assistance-helper provides verbal cues and/or touching/steadying and/or contact guard assistance as patient completes activity. Assistance may be provided throughout the activity or intermittently. 3-Partial/Moderate Assistance-helper does LESS THAN HALF the effort. [place] lifts, holds or supports trunk or limbs, but provides less than half the effort. 2-Substantial/Maximal Assistance-helper does MORE THAN HALF the effort. [place] lifts or holds trunk or limbs and provides more than half the effort. 7-Jzjhfugqw-uleysv does ALL the effort. Patient does none of the effort to complete the activity. Or, the assistance of 2 or more helpers is required for the patient to complete the activity. If activity was not attempted, code reason: 7-Patient Refused. 9-Not Applicable-not attempted and the patient did not perform the activity before the current illness, exacerbation or injury. 10-Not Attempted due to Environmental Limitations-(lack of equipment, weather restraints, etc.). 88-Not Attempted due to Medical Conditions or Safety Concerns. Sit to Stand (QC): 5 Toilet Transfer (QC): 5 Weight Bearing Full Weight Bearing Full Weight Bearing Wheelchair Training Does the Pt Use a Wheelchair?: No Treatments [id number]: Pt seen from with PT co-treat to address d/c and higher level functional tasks. OT addresses ADLs and UE movement/ standing balance for I/ADLs and PT addresses LE movement, balance, and gait. Pt, sister, OT and TOBACCO CUTTER discuss PLOF and pt's current level. From OT standpoint, pt at PLOF. Pt's sister states son may call to clarify situation as he was considering SNF placement. Pt's sister encouraged to allow son to call in if desired. Pt completes toileting, then stands at chair to complete balance task (CGA at stance from PT, pt reaches in all planes with CGA and mod cues for standing upright/ visual scanning). Pt able to complete with BUE doffed from walker with CGA. No LOB. Mod rest breaks for breath support. Left in recliner with all needs met, call light in reach, left with RT. Assessment Current Status: Good Progress Pt still fatigues and needs rest break. Pt reports SOA but O2 stays at acceptable level during tx. TOBACCO CUTTER feels this is due to pt's COPD and is PLOF. PT Short Term Goals Short Term Goals Time Frame: Aug 20, 2020 Lying to sitting on side of be: 4 Sit to stand: 4 Chair/qpv-pr-rlfxc transfer: 4 Walk 150 feet: 4 PT Long-Term Goals Customer Consultant Goals PT Long-Term Goals Time Frame: Aug 27, 2020 Roll Left & Right (QC): 6 Sit to Lying (QC): 6 Lying-Sitting on Side/Bed(QC): 6 Sit to Stand (QC): 6 Chair/Kxm-ay-Neeoa Xfer(QC): 6 Toilet Transfer (QC): 6 Car Transfer (QC): 5 Does the Patient Walk: Yes Walk 10 feet (QC): 6 Walk 50ft with 2 Turns (QC): 6 Walk 150 ft (QC): 6 Walking 10ft on Uneven Surface: 4 1 Step (curb) (QC): 4 4 Steps (QC): 4 12 Steps (QC): 9 Picking up an Object (QC): 9 Wheel 50 feet with 2 turns (QC: 9 Wheel 150 feet: 9 PT Plan Problem List Problem List: Activity Tolerance Treatment/Plan Treatment Plan: Continue Plan of Care Treatment Plan: Bed Mobility, Education, Functional Activity Chrissy, Functional Strength, Group Therapy, Gait, Safety, Therapeutic Exercise, Transfers Treatment Duration: Aug 27, 2020 Frequency: At least 5 of 7 days/Wk (IRF) Estimated Hrs Per Day: 1.5 hours per day Patient and/or Family Agrees t: Yes Time/GCodes Time In: 1425 Time Out: 1455 Total Billed Treatment Time: 30 Total Billed Treatment 1, FA x2 (30m) Co-treat w/OT for 30m LEIDY CRUZ TOBACCO CUTTER Aug 19, 2020 15:46
[2020-08-19 17:04] VITALS: BP 151/68
--- NOTE | 2020-08-19 17:13 | Cardiology Progress Note ---
Subjective Date Seen by Provider: Aug 19, 2020 Time Seen by Provider: 17:11 Subjective/Events-last exam Patient was seen at bedside, sitting comfortably, still having some shortness of breath Review of Systems General: No Chills, No Night Sweats; Fatigue, Malaise; No Appetite, No Other HEENT: No Head Aches, No Visual Changes, No Eye Pain, No Ear Pain, No Dysphasia, No Sinus Congestion, No Post Nasal Drip, No Sore Throat, No Other Pulmonary: Dyspnea; No Cough, No Pleuritic Chest Pain, No Other Cardiovascular: No: Chest Pain, Palpitations, Orthopnea, Paroxysmal Noc. Dyspnea, Edema, Lt Headedness, Other Objective-Cardiology Exam Last Set of Vital Signs Vital Signs 08/13/20 08/19/20 13:55 17:04 Temp 36.8 Pulse 60 Resp 20 B/P (MAP) 151/68 (95) Pulse Ox 97 O2 Delivery High Flow N/C O2 Flow Rate 3.00 FiO2 32 Capillary Refill : I&O Intake and Output 08/19/20 00:00 Intake Total 1400 ml Balance 1400 ml Intake Oral 1400 ml # Voids 6 # Bowel Movements 1 General: Alert, Oriented X3, Cooperative HEENT: Atraumatic, PERRLA Neck: Supple, No JVD, No Thyromegaly Lungs: Other (bibasilar crackles, mildly increased work of breathing) Heart: Normal S1, Normal S2, No Murmurs, Other (tachycardia) Extremities: No Clubbing, No Cyanosis, No Edema, Normal Pulses, Other (bilateral non-pitting LE edema, right worse than left) Skin: No Rashes, No Breakdown, No Significant Lesion Neuro: Normal Gait, Normal Speech, Normal Tone Psych/Mental Status: Mental Status NL, Mood NL A/P-Cardiology Admission Diagnosis HTN CHF Dyspnea Assessment/Plan Hypertension, poorly controlled, on multiple medication, continue to monitor, no changes recommended Status post acute resp insuff due to pneumonia, managed by primary care team. CXR today shows increased heart size, probable pulmonary edema vs pneumonia, still having some shortness of breath, receiving Lasix. Continue to monitor COPD, on 3 L NC, managed by Dr. Montiel Acute diastolic CHF, currently clinically compensated. Echocardiogram done on August 04, 2020 showing normal left ventricular systolic function, ejection fraction 60 percent, mild mitral regurgitation, mild aortic stenosis, pulmonary artery pressure of 40-45 mmHg. Currently maintained on Lasix Chronic, bilateral leg edema, likely due to venous insufficiency. Sinus node dysfunction, history of permanent pacemaker, alternating between sinus rhythm and atrial paced rhythm. Paroxysmal atrial fibrillation, on rivaroxaban CKD-3, clinically stable. Continue to monitor Hyperlipidemia CRUZ DANIELS MD Aug 19, 2020 5:13 pm
[2020-08-19] MEDS: LATANOPROST 0.005% (XALATAN) OPHTH SOLN 2.5 ML OU SCH (20:27)
--- NOTE | 2020-08-20 05:22 | PM&R Progress Note ---
Subjective HPI/CC On Admission Date Seen by Provider: Aug 20, 2020 Time Seen by Provider: 09:00 Subjective/Events-last exam 08/20/20: Pt set for mcc placement tomorrow No issues Bowels are moving Oxygen is good 08/19/20: Pt really back to her baseline Bowels are moving BP good 156/70 Mild edema with etta wraps on Looking to [facility] for skilled Oxygen at 3 liters at baseline 08/18/20: Pt having some dyspnea but improved from yesterday Dr. Montiel did review chest X-ray and labs Bowels moved yesterday WBC down on Prednisone of 20 mg daily 08/17/20: Patient doing well Constipation resolved Wrapped legs with ETTA wraps No pain reported More dyspnea noted during conversation 08/16/20: Patient doing well Constipation noted No pain O2 maintained Edema improved 08/15/20: No complaints No pain Participating well with therapy BM yesterday Decreased steroids 08/14/20: Decreasing Prednisone dose now Elevated wbc noted from steroid effect ETTA wraps to legs 3L/min O2 maintained No pain BM+ 08/13/20: Pt doing a lot better BP better, Norvasc added a couple of days has really helped Edema is much improved Labs will be checked tomorrow due to elevated wbc 08/12/20: Pt having no issues BP still slightly high Bowels moved today Checked meds and labs 08/11/20: Pt doing pretty well WBC 17,000 but lactic acid and Procalcitonin was normal Chest CXR ordered but not completed yet Elevated BP managed by Dr. Brower Wrapped her legs B/L O2 sat 95% on oxygen when she is exerting herself Using her IS 08/10/20: Patient doing well Dr Brower started Norvasc 5mg for elevated BP Buttocks are sore so placed pad in chair No laxatives needed Potassium changed Lasix changed Increased transfer ability 08/09/20: Patient doing well No complaints IV abx completed Holding laxatives due to loose stools 08/08/20: Patient feels good No pain reported O2 maintained Checked meds and labs 08/07/20: Patient doing well Settling in well in IRF No pain reported BM today and a bit loose Checked meds and labs Review of Systems General: Fatigue, Malaise Pulmonary: Dyspnea Objective Exam Vital Signs Vital Signs Date Time Temp Pulse Resp B/P (MAP) Pulse Ox O2 Delivery O2 Flow Rate FiO2 08/21/20 05:01 36.8 68 20 135/62 (86) 96 High Flow N/C 3.00 Capillary Refill : General Appearance: No Apparent Distress, WD/WN, Chronically ill, Obese HEENT: PERRL/EOMI, Normal ENT Inspection, Pharynx Normal Neck: Full Range of Motion, Normal Inspection, Non Tender, Supple, Carotid Bruit Respiratory: Chest Non Tender, Lungs Clear, No Accessory Muscle Use, No Respiratory Distress, Decreased Breath Sounds Cardiovascular: No Edema, No Gallop, No JVD, No Murmur, Normal Peripheral Pulses, Irregularly Irregular Gastrointestinal: Normal Bowel Sounds, No Organomegaly, No Pulsatile Mass, Non Tender, Soft Back: Normal Inspection, No CVA Tenderness, No Vertebral Tenderness Extremity: Normal Capillary Refill, Normal Inspection, Normal Range of Motion, Non Tender, No Calf Tenderness, No Pedal Edema Neurologic/Psychiatric: Alert, Oriented x3, No Motor/Sensory Deficits, Normal Mood/Affect, Abnormal Gait, Motor Weakness Skin: Normal Color, Warm/Dry Lymphatic: No Adenopathy Results/Procedures Lab Patient resulted labs reviewed. FIM Transfers Therapy Code Descriptions/Definitions Functional [place] Measure: 0=Not Assessed/NA 4=Minimal Assistance 1=Total Assistance 5=Supervision or Setup 2=Maximal Assistance 6=Modified [place] 3=Moderate Assistance 7=Complete IndependenceSCALE: Activities may be completed with or without assistive devices. 3-Wnvviqidxa-ccrjoax completes the activity by him/herself with no assistance from a helper. 5-Set-up or Clean-up Assistance-helper sets up or cleans up; patient completes activity. [place] assists only prior to or following the activity. 4-Supervision or Touching Assistance-helper provides verbal cues and/or touching/steadying and/or contact guard assistance as patient completes activity. Assistance may be provided throughout the activity or intermittently. 3-Partial/Moderate Assistance-helper does LESS THAN HALF the effort. [place] lifts, holds or supports trunk or limbs, but provides less than half the effort. 2-Substantial/Maximal Assistance-helper does MORE THAN HALF the effort. [place] lifts or holds trunk or limbs and provides more than half the effort. 9-Awgvjkacr-lrnnnn does ALL the effort. Patient does none of the effort to complete the activity. Or, the assistance of 2 or more helpers is required for the patient to complete the activity. If activity was not attempted, code reason: 7-Patient Refused. 9-Not Applicable-not attempted and the patient did not perform the activity before the current illness, exacerbation or injury. 10-Not Attempted due to Environmental Limitations-(lack of equipment, weather restraints, etc.). 88-Not Attempted due to Medical Conditions or Safety Concerns. Roll Left to Right (QC): 6 Sit to Lying (QC): 4 Sit to Stand (QC): 5 Chair/Qyx-kk-Rmhhl Xfer(QC): 5 Car Transfer (QC): 3 Gait Training Does the Patient Walk?: Yes Distance: 150' x2 Walk 10 feet (QC): 5 Walk 50 ft with 2 Turns(QC): 5 Walk 150 ft (QC): 5 Walking 10ft/uneven surface-QC: 3 Gait Persons Needed: 1 Gait Assistive Device: FWW Wheelchair Training Does the Pt Use a Wheelchair?: No Wheel 50 ft with 2 turns (QC): 4 Wheel 150 ft (QC): 9 Stair Training Stair Training: Handrails/: 2 handrails #of Steps: 4 1 Step (curb) (QC): 5 4 Steps (QC): 5 12 Steps (QC): 88 Stairs: Pattern: Step to Balance Picking up an Object (QC): 88 ADL-Treatment Eating (QC): 6 Oral Hygiene (QC): 4 (SUP while standing at sink) Bathing Location: L Arm, R Arm, L Upper Leg, R Upper Leg, Chest, Abdomen, Perineal Area Shower/Bathe Self (QC): 3 (min A for bottom hygiene on this date. Pt completes all the other body locations with s/u while in sit.) Upper Body Dressing (QC): 5 (s/u) Lower Body Dressing (QC): 4 (SBA, use of raisin separator operator for threading materials. SBA in stance. ) On/Off Footwear (QC): 1 (doffed with TD. Use of lotion/ BLE wraps/ bilingual middle school teacher socks donned for pt. ) Toileting Hygiene (QC): 3 (min A for bottom thoroughness this date.) Toilet Transfer (QC): 4 (SBA with transfer, use of walker) Assessment/Plan Assessment and Plan Assess & Plan/Chief Complaint Assessment: COPD myopathy Acute on chronic respiratory failure Chronic O2 dependence Debility following PNA and UTI PHTN Edema chronic Chronic right foot drop uses AFO Edema chronic HTN OAB Plan: Monitor BP OAC Appreciate Cardiology IRF protocol 08/07/20: Monitor closely Abx Pain management O2 08/08/20: Monitor closely BP management O2 maintained 08/09/20: Monitor dyspnea O2 Monitor for falls 08/10/20: Monitor BP Appreciate Dr Brower 08/11/20: Monitor O2 Monitor wbc 08/12/20: Monitor O2 Monitor for falls 08/13/20: Monitor closely Monitor wbc 08/14/20: Monitor O2 Decrease steroids 08/15/20: Monitor for falls Decreased Prednisone 08/16/20: Monitor closely Fall risk 08/17/20: Monitor dyspnea closely Lasix maintained O2 08/18/20: Monitor closely O2 08/19/20: Needs NH at DC Monitor O2 08/20/20: O2 NHP tomorrow (1) Myopathy (2) COPD (chronic obstructive pulmonary disease) (3) Afib Status: Acute (4) HLD (hyperlipidemia) Status: Chronic (5) HTN (hypertension) Status: Chronic (6) Obesity Status: Chronic (7) Acute on chronic respiratory failure with hypoxia Status: Acute (8) PNA (pneumonia) Status: Acute (9) Foot drop, right (10) Essential (primary) hypertension (11) Edema (12) Lower lobe pneumonia Status: Acute (13) Oxygen dependent (14) Overactive bladder (15) Glaucoma (16) Debility (17) Hypoxemia RIKA BERUMEN DO Aug 20, 2020 05:22
[2020-08-20] MEDS: KCL 20 MEQ TAB (K-DUR) PO SCH (06:10)
[2020-08-20] MEDS: predniSONE 20 MG TAB PO SCH (06:10)
[2020-08-20] MEDS: UMECLIDINIUM BROMIDE (INCRUSE ELLIPTA) 7'S IH SCH (06:29)
[2020-08-20] MEDS: RT-ALBUTEROL INHALER HFA (VENTOLIN HFA) 18 GM IH SCH ×3 (06:29→18:39)
[2020-08-20] MEDS: FLUTICASONE/SALMETEROL 113-14 (AIRDUO RespiCLICK) IH SCH (06:29)
[2020-08-20 06:38] VITALS: BP 138/65
[2020-08-20] MEDS: RIVAROXABAN 15 MG TABLET (XARELTO) PO SCH (07:55)
[2020-08-20] MEDS: SENNA W/DOCUSATE (SENOKOT S) TABLET PO SCH ×2 (07:56→20:43)
[2020-08-20] MEDS: CARVEDILOL 12.5 MG (COREG) TABLET PO SCH ×2 (07:56→17:44)
[2020-08-20] MEDS: amLODIPine 10 MG (NORVASC) TAB PO SCH (07:56)
[2020-08-20] MEDS: FUROSEMIDE 40 MG (LASIX) TAB PO SCH (07:56)
[2020-08-20] MEDS: TIMOLOL MALEATE 0.5% 5 ML (TIMOPTIC) BTL OU SCH (07:56)
[2020-08-20] MEDS: DOCUSATE SODIUM 100 MG (COLACE) CAP PO SCH ×2 (07:56→20:43)
[2020-08-20 07:58] VITALS: BP 142/65
--- NOTE | 2020-08-20 08:02 | Cardiology Progress Note ---
Subjective Date Seen by Provider: Aug 20, 2020 Time Seen by Provider: 08:00 Subjective/Events-last exam Pt doing well, no new complaints. Still having SOB and BLE swelling, unchanged from yesterday. BP 138/65. Review of Systems General: No Chills, No Night Sweats; Fatigue, Malaise; No Appetite, No Other HEENT: No Head Aches, No Visual Changes, No Eye Pain, No Ear Pain, No Dysph barry, No Sinus Congestion, No Post Nasal Drip, No Sore Throat, No Other Pulmonary: No Dyspnea, No Cough, No Pleuritic Chest Pain, No Other Cardiovascular: Edema; No: Chest Pain, Palpitations, Orthopnea, Paroxysmal Noc. Dyspnea, Lt Headedness, Other Objective-Cardiology Exam Last Set of Vital Signs Vital Signs 08/20/20 08/20/20 08/20/20 06:38 07:58 15:00 Temp 36.7 Pulse 70 Resp 20 B/P (MAP) 142/65 (90) Pulse Ox 95 O2 Delivery Nasal Cannula O2 Flow Rate 3.00 Capillary Refill : I&O Intake and Output 08/20/20 00:00 Intake Total 2300 ml Balance 2300 ml Intake Oral 2300 ml # Voids 8 # Bowel Movements 1 General: Alert, Oriented X3, Cooperative, No Acute Distress HEENT: Atraumatic, PERRLA Neck: Supple, No JVD, No Thyromegaly Lungs: Other (bilateral crackles, right worse than left, mildly increased work of breathing) Heart: Regular Rate, Normal S1, Normal S2, No Murmurs Extremities: No Clubbing, No Cyanosis, No Edema, Normal Pulses, Other (bilateral non-pitting LE edema, right worse than left, unchanged from yesterday) Skin: No Rashes, No Breakdown, No Significant Lesion Neuro: Normal Gait, Normal Speech, Normal Tone Psych/Mental Status: Mental Status NL, Mood NL A/P-Cardiology Admission Diagnosis HTN CHF Dyspnea Assessment/Plan Hypertension, poorly controlled, on multiple medications, continue to monitor, no changes recommended Status post acute resp insuff due to pneumonia, managed by primary care team. CXR today shows increased heart size, probable pulmonary edema vs pneumonia, still having some shortness of breath, receiving Lasix. Continue to monitor COPD, on 3 L NC, managed by Dr. Montiel Acute diastolic CHF, currently clinically compensated. Echocardiogram done on August 04, 2020 showing normal left ventricular systolic function, ejection fraction 60 percent, mild mitral regurgitation, mild aortic stenosis, pulmonary artery pressure of 40-45 mmHg. Currently maintained on Lasix Chronic, bilateral leg edema, likely due to venous insufficiency. Sinus node dysfunction, history of permanent pacemaker, alternating between sinus rhythm and atrial paced rhythm. Paroxysmal atrial fibrillation, on rivaroxaban CKD-3, clinically stable. Continue to monitor Hyperlipidemia Supervisory-Addendum Brief Supervisory Addendum Participated in pt care: history, MDM, physical Personally performed: exam, history, MDM Care discussed with: Medical Student Notes: Patient was seen and evaluated, still having pedal edema Continue on diuretics, monitor blood pressure and lipids Continue on physical therapy. GWENDOLYN SAUL MED STUDENT Aug 20, 2020 8:02 am CRUZ DANIELS MD Aug 20, 2020 4:14 pm
[2020-08-20] MEDS: polyethylene glycoL POWDER 17 GM (MIRALAX) PACK PO SCH ×2 (09:24→20:48)
--- NOTE | 2020-08-20 10:10 | Physical Therapy Daily Note ---
PT Daily Note-Current Subjective Pt sitting in recliner upon arrival. Pt agrees to PT for QC scoring. Pain Numeric Pain Scale: 0-No Pain Mental Status Patient Orientation: Person, Place, Time, Situation Attachments: Oxygen (3L) Transfers SCALE: Activities may be completed with or without assistive devices. 7-Pxpalauqkj-lffiqyt completes the activity by him/herself with no assistance from a helper. 5-Set-up or Clean-up Assistance-helper sets up or cleans up; patient completes activity. [place] assists only prior to or following the activity. 4-Supervision or Touching Assistance-helper provides verbal cues and/or touching/steadying and/or contact guard assistance as patient completes activity. Assistance may be provided throughout the activity or intermittently. 3-Partial/Moderate Assistance-helper does LESS THAN HALF the effort. [place] lifts, holds or supports trunk or limbs, but provides less than half the effort. 2-Substantial/Maximal Assistance-helper does MORE THAN HALF the effort. [place] lifts or holds trunk or limbs and provides more than half the effort. 2-Qzdpilaqs-tkjrfe does ALL the effort. Patient does none of the effort to complete the activity. Or, the assistance of 2 or more helpers is required for the patient to complete the activity. If activity was not attempted, code reason: 7-Patient Refused. 9-Not Applicable-not attempted and the patient did not perform the activity before the current illness, exacerbation or injury. 10-Not Attempted due to Environmental Limitations-(lack of equipment, weather restraints, etc.). 88-Not Attempted due to Medical Conditions or Safety Concerns. Roll Left & Right (QC): 5 Sit to Lying (QC): 5 Lying to Sitting/Side of Bed(Q: 5 Sit to Stand (QC): 5 Chair/Joq-bp-Buocd Xfer(QC): 5 Toilet Transfer (QC): 5 Car Transfer (QC): 5 Pt used bed rails to assist with transfers. Weight Bearing Full Weight Bearing Full Weight Bearing Gait Training Does the Patient Walk?: Yes Distance: 150' x2 Walk 10 feet (QC): 5 Walk 50 ft with 2 Turns(QC): 5 Walk 150 ft (QC): 5 Walking 10ft/uneven surface-QC: 5 Gait Persons Needed: 1 Gait Assistive Device: FWW Pt given VC for standing up tall. Wheelchair Training Does the Pt Use a Wheelchair?: No Balance Picking up an Object (QC): 5 Special Test Comments Pt has property assessment monitor at home and uses it regularly. Treatments Pt completes QC scoring items listed above except stairs and will complete those in afternoon tx. Pt returns to room at end of tx as OT arrives. Assessment Current Status: Good Progress Pt demonstrates SOA but O2 has remained WNL. PT Short Term Goals Short Term Goals Time Frame: Aug 20, 2020 Lying to sitting on side of be: 4 Sit to stand: 4 Chair/xjl-az-bbevr transfer: 4 Walk 150 feet: 4 PT Magnetizer Goals Magnetizer Goals PT Magnetizer Goals Time Frame: Aug 27, 2020 Roll Left & Right (QC): 6 Sit to Lying (QC): 6 Lying-Sitting on Side/Bed(QC): 6 Sit to Stand (QC): 6 Chair/Ion-vr-Gfivr Xfer(QC): 6 Toilet Transfer (QC): 6 Car Transfer (QC): 5 Does the Patient Walk: Yes Walk 10 feet (QC): 6 Walk 50ft with 2 Turns (QC): 6 Walk 150 ft (QC): 6 Walking 10ft on Uneven Surface: 4 1 Step (curb) (QC): 4 4 Steps (QC): 4 12 Steps (QC): 9 Picking up an Object (QC): 9 Wheel 50 feet with 2 turns (QC: 9 Wheel 150 feet: 9 PT Plan Problem List Problem List: Activity Tolerance Treatment/Plan Treatment Plan: Continue Plan of Care Treatment Plan: Bed Mobility, Education, Functional Activity Chrissy, Functional Strength, Group Therapy, Gait, Safety, Therapeutic Exercise, Transfers Treatment Duration: Aug 27, 2020 Frequency: At least 5 of 7 days/Wk (IRF) Estimated Hrs Per Day: 1.5 hours per day Patient and/or Family Agrees t: Yes Safety Risks/Education Patient Education: Gait Training, Correct Positioning, Safety Issues Teaching Recipient: Patient Teaching Methods: Discussion Response to Teaching: Verbalize Understanding Time/GCodes Time In: 800 Time Out: 900 Total Billed Treatment Time: 60 Total Billed Treatment 1, GT (20m) & FA x3 (40m) LEIDY CRUZ CLAY MOLDER Aug 20, 2020 10:10
--- NOTE | 2020-08-20 10:19 | Occupational Ther Daily Note ---
OT Current Status-Daily Note Subjective Pt up with PT start of session. OT relieves PT for OT tx. Pt agrees to tx. Desires dressing. Pt upright in chair upon second entry. Pt agrees to tx. Denies pain. Mental Status/Objective Patient Orientation: Person, Place, Situation, Normal For Age Attachments: Oxygen (3L) ADL-Treatment Therapy Code Descriptions/Definitions Functional [place] Measure: 0=Not Assessed/NA 4=Minimal Assistance 1=Total Assistance 5=Supervision or Setup 2=Maximal Assistance 6=Modified [place] 3=Moderate Assistance 7=Complete IndependenceSCALE: Activities may be completed with or without assistive devices. 8-Vvtimzasnr-jwqpbgn completes the activity by him/herself with no assistance from a helper. 5-Set-up or Clean-up Assistance-helper sets up or cleans up; patient completes activity. [place] assists only prior to or following the activity. 4-Supervision or Touching Assistance-helper provides verbal cues and/or touching/steadying and/or contact guard assistance as patient completes activity. Assistance may be provided throughout the activity or intermittently. 3-Partial/Moderate Assistance-helper does LESS THAN HALF the effort. [place] lifts, holds or supports trunk or limbs, but provides less than half the effort. 2-Substantial/Maximal Assistance-helper does MORE THAN HALF the effort. [place] lifts or holds trunk or limbs and provides more than half the effort. 8-Hdqfgeqbm-ezwbvg does ALL the effort. Patient does none of the effort to complete the activity. Or, the assistance of 2 or more helpers is required for the patient to complete the activity. If activity was not attempted, code reason: 7-Patient Refused. 9-Not Applicable-not attempted and the patient did not perform the activity before the current illness, exacerbation or injury. 10-Not Attempted due to Environmental Limitations-(lack of equipment, weather restraints, etc.). 88-Not Attempted due to Medical Conditions or Safety Concerns. Eating (QC): 6 Oral Hygiene (QC): 4 (SUP at sink.) Shower/Bathe Self (QC): 7 (denies on this date as completed yesterday, however, would be SBA-min A) Upper Body Dressing (QC): 5 Lower Body Dressing (QC): 4 (SBA-SUP, no LOB. At walker level good safety awareness in static stance.) On/Off Footwear: 88 (TD (pt lotioned and LEs wrapped) this is completed for pt at home. ) Toileting Hygiene (QC): 4 (SUP) Toilet Transfer (QC): 4 (SUP) Other Treatment Pt completes oral care at sink, ambulates to chair and sits with SBA. Pt's LEs wrapped with TD. Dresses with s/u and SBA-SUP. Pt ambulates through mendiola with SBA, sits in chair for RB and 02 assessed : 95%. Pt ambulates to gym SBA, completes 10 minutes mod resistance arm bike (25 chang) with intermittent rest breaks and 02 assessed throughout (always >93%). Ambulates back to room without RB, requires toileting. SBA. Returns to recliner, all needs met, call light in reach, LEs elevated. Pt completes UE theraband ex with mod resistance UE theraband, completing 2 sets of 10-15 reps of the following: shoulder flexion, back flies, bicep curls, triceps, in/ext rotation. Pt desires bathroom. Completes sit to stand with SBA level and toileting SUP. Pt's briefs wet upon sitting, changing with assist with AE (correctional case records supervisor) and s/u. Pt completes all LB dressing with SBA. Pt completes hand hygiene and ambulates to chair. Denies needs, call light in reach. Education OT Patient Education: Correct positioning, Exercise program, Progress toward Goal/Update tx plan, Purpose of tx/functional activities Teaching Recipient: Patient Teaching Methods: Demonstration, Discussion Response to Teaching: Verbalize Understanding, Return Demonstration OT Short Term Goals Short Term Goals Time Frame: Aug 15, 2020 Toileting hygiene: 4 Upper body dressin Lower body dressin Putting on/taking off footwear: 5 OT Retirement Goals Rn Ed Goals Time Frame: Aug 29, 2020 Eating (QC): 6 Oral Hygiene (QC): 6 Toileting Hygiene (QC): 6 Shower/Bathe Self (QC): 4 Upper Body Dressing (QC): 6 Lower Body Dressing (QC): 6 On/Off Footwear (QC): 6 Additional Goals: 1-Demonstrate ADL Tasks, 2-Verbalize Understanding, 3-ImproveStrength/Chrissy 1=Demonstrate adherence to instructed precautions during ADL tasks. 2=Patient will verbalize/demonstrate understanding of assistive devices/modifications for ADL. 3=Patient will improve strength/tolerance for activity to enable patient to perform ADL's. OT Education/Plan Problem List/Assessment Assessment: Decreased Activ Tolerance, Decreased UE Strength, Edema, Impaired I ADL's, Impaired Self-Care Skills Discharge Recommendations Plan/Recommendations: Continue POC Therapy Discharge Recommendati: Home & Family Treatment Plan/Plan of Care Treatment,Training & Education: Yes Patient would benefit from OT for education, treatment and training to promote independence in ADL's, mobility, safety and/or upper extremity function for ADL's. Plan of Care: ADL Retraining, Functional Mobility, Group Exercise/Act as Ind, UE Funct Exercise/Act Treatment Duration: Aug 29, 2020 Frequency: At least 5 of 7 days/Wk (IRF) Estimated Hrs Per Day: 1.5 hours per day Rehab Potential: Good Time/GCodes Start Time: 09:00 (1120) Stop Time: 10:00 (1150) Total Time Billed (hr/min): 90 Billed Treatment Time 1, ADL 2 (30), EX 2 (30)= 60 1, EX (20), ADL (10)= 30 Total: 90 KODI LEO OTR Aug 20, 2020 10:19
--- NOTE | 2020-08-20 15:36 | Physical Therapy Daily Note ---
PT Daily Note-Current Subjective Pt sitting in recliner upon arrival. Pt agrees to PT. Pain Location: No Pain Reported Mental Status Patient Orientation: Person, Place, Time, Situation Transfers SCALE: Activities may be completed with or without assistive devices. 8-Embtznklwq-eaedypb completes the activity by him/herself with no assistance from a helper. 5-Set-up or Clean-up Assistance-helper sets up or cleans up; patient completes activity. Bradford assists only prior to or following the activity. 4-Supervision or Touching Assistance-helper provides verbal cues and/or touching/steadying and/or contact guard assistance as patient completes activity. Assistance may be provided throughout the activity or intermittently. 3-Partial/Moderate Assistance-helper does LESS THAN HALF the effort. Bradford lifts, holds or supports trunk or limbs, but provides less than half the effort. 2-Substantial/Maximal Assistance-helper does MORE THAN HALF the effort. Bradford lifts or holds trunk or limbs and provides more than half the effort. 9-Uaaihykzq-ovvaeu does ALL the effort. Patient does none of the effort to complete the activity. Or, the assistance of 2 or more helpers is required for the patient to complete the activity. If activity was not attempted, code reason: 7-Patient Refused. 9-Not Applicable-not attempted and the patient did not perform the activity bef ore the current illness, exacerbation or injury. 10-Not Attempted due to Environmental Limitations-(lack of equipment, weather r estraints, etc.). 88-Not Attempted due to Medical Conditions or Safety Concerns. Sit to Stand (QC): 5 Toilet Transfer (QC): 5 Weight Bearing Full Weight Bearing Full Weight Bearing Gait Training Does the Patient Walk?: Yes Distance: 150' x2 Walk 10 feet (QC): 5 Walk 50 ft with 2 Turns(QC): 5 Walk 150 ft (QC): 5 Gait Persons Needed: 1 Gait Assistive Device: FWW Wheelchair Training Does the Pt Use a Wheelchair?: No Stair Training Stair Training: Handrails/: 2 handrails #of Steps: 4 1 Step (curb) (QC): 5 4 Steps (QC): 5 Stairs: Pattern: Step to Treatments TF to standing then uses BR per request. Pt amb. in hallway then after short RB, completes 1 set of 4 steps then takes another RB. Pt amb. back to room to rest in recliner with all needs met, call light in hand. Assessment Current Status: Good Progress Pt has gained strength and activity tolerance for improved independence of tasks. PT Short Term Goals Short Term Goals Time Frame: Aug 20, 2020 Lying to sitting on side of be: 4 Sit to stand: 4 Chair/iky-my-yhoxz transfer: 4 Walk 150 feet: 4 PT Admitting Coordinator Goals Alf Goals PT Admitting Coordinator Goals Time Frame: Aug 27, 2020 Roll Left & Right (QC): 6 Sit to Lying (QC): 6 Lying-Sitting on Side/Bed(QC): 6 Sit to Stand (QC): 6 Chair/Mnw-ih-Ztvru Xfer(QC): 6 Toilet Transfer (QC): 6 Car Transfer (QC): 5 Does the Patient Walk: Yes Walk 10 feet (QC): 6 Walk 50ft with 2 Turns (QC): 6 Walk 150 ft (QC): 6 Walking 10ft on Uneven Surface: 4 1 Step (curb) (QC): 4 4 Steps (QC): 4 12 Steps (QC): 9 Picking up an Object (QC): 9 Wheel 50 feet with 2 turns (QC: 9 Wheel 150 feet: 9 PT Plan Treatment/Plan Treatment Plan: Continue Plan of Care Treatment Plan: Bed Mobility, Education, Functional Activity Chrissy, Functional Strength, Group Therapy, Gait, Safety, Therapeutic Exercise, Transfers Treatment Duration: Aug 27, 2020 Frequency: At least 5 of 7 days/Wk (IRF) Estimated Hrs Per Day: 1.5 hours per day Patient and/or Family Agrees t: Yes Safety Risks/Education Patient Education: Steps, Correct Positioning Teaching Recipient: Patient Teaching Methods: Discussion Response to Teaching: Verbalize Understanding Time/GCodes Time In: 1430 Time Out: 1500 Total Billed Treatment Time: 30 Total Billed Treatment 1, GT (15m) & FA (15m) LEIDY CRUZ PTA Aug 20, 2020 15:36
[2020-08-20 17:36] VITALS: BP 140/69
[2020-08-20] MEDS: MELATONIN 3 MG TABLET PO PRN (20:42)
[2020-08-20] MEDS: LATANOPROST 0.005% (XALATAN) OPHTH SOLN 2.5 ML OU SCH (20:43)
[2020-08-21 05:01] VITALS: BP 135/62
[2020-08-21] MEDS ORDERED: FURO40TA4 PO (05:43)
[2020-08-21] MEDS ORDERED: AMLO-251 PO (05:43)
[2020-08-21] MEDS ORDERED: PRED10TA22 PO (05:43)
[2020-08-21] MEDS ORDERED: ALBU18HF2 IH (05:43)
[2020-08-21] MEDS ORDERED: POTA20TA8 PO (05:43)
[2020-08-21] MEDS ORDERED: DILT240C91 PO (05:43)
[2020-08-21] MEDS ORDERED: DCS100C PO (05:43)
[2020-08-21] MEDS ORDERED: RIVA15TA2 PO (05:43)
[2020-08-21] MEDS ORDERED: FLUT1AER4 IH (05:43)
[2020-08-21] MEDS ORDERED: UMEC62.5 IH (05:43)
[2020-08-21] MEDS ORDERED: CARV12.53 PO (05:43)
--- NOTE | 2020-08-21 05:44 | Discharge Inst-Skilled Nursing ---
Discharge Inst-Skilled NF Reconcile Patient Problems Problems Reviewed?: Yes Patient Instructions Patient Problems: Debility COPD O2 dependence Goal: [place] Consult/Follow Up/Orders Follow Up Appt.: Dr Ferreira [place] rounds Skilled NF Admit to: [facility] ([facility]) I certify that SNF services are required to be given on an inpatient basis because of the above named patient's need for fci care on a continuing basis for the conditions(s) for which he/she was receiving inpatient hospital services prior to his/her transfer to the [facility]. Fci Facility Order: Nursing Services, Marketing Compliance Manager-Evaluate & Treat, Physical Therapy-Evaluate & Treat (3L/min) Oxygen Delivery Method: High Flow N/C Discharge Diet: No Restrictions Daily Activity as Tolerated: Yes Resuscitation Status: Do Not Resuscitate New & Resume Previous Orders New Medications: Prednisone (Prednisone) 10 Mg Tab.ds.pk 10 MG PO DAILY for 7 Days, EA 20 mg po daily for 3 days then 10 mg po daily for 4 days then DC Albuterol Sulfate (Ventolin Hfa) 18 Gm Hfa.aer.ad 0 GM IH RTTID for 30 Days, GM Amlodipine Besylate (Amlodipine Besylate) 10 Mg Tablet 10 MG PO DAILY for 30 Days, TAB Carvedilol (Carvedilol) 12.5 Mg Tablet 12.5 MG PO BID WITH MEALS for 30 Days, TAB Diltiazem HCl (Diltiazem 24Hr ER) 240 Mg Cap.er.24h 240 MG PO DAILY for 30 Days, CAP Docusate Sodium (Dok) 100 Mg Capsule 100 MG PO BID PRN for CONSTIPATION-1ST LINE for 30 Days, CAP Fluticasone/Salmeterol (Fluticasone-Salmeterol 113-14) 1 Each Aer.pow.ba 0 EACH IH RTBID for 30 Days, GM Furosemide (Furosemide) 40 Mg Tablet 40 MG PO DAILY for 30 Days, TAB Potassium Chloride (Klor-Con M20) 20 Meq Tab.er.prt 20 MEQ PO DAILY@0700 for 30 Days Rivaroxaban (Xarelto Tablet) 15 Mg Tablet 15 MG PO DAILY@0800 for 30 Days, TAB Umeclidinium [place] (Incruse Ellipta) 62.5 Mcg Blst.w.dev 0 INH IH DAILY@0800 for 30 Days Continued Medications: Calcium Carbonate/Vitamin D3 (Calcium 600 + Vit D Caplet) 1 Each Tablet 2 EACH PO DAILY, TAB Cranberry Fruit (Cranberry) 400 Mg Tablet 800 MG PO HS, TAB TAKES 2 (400MG) TABLETS Estradiol (Estrace Tablet) 0.5 Mg Tablet 0.5 MG PO MON,UR, TAB Hydralazine HCl (Hydralazine HCl) 50 Mg Tablet 50 MG PO TID, TAB Latanoprost/Pf (Latanoprost 0.005% Eye Drop) 7.5 Ml Drops 1 DROP OU HS, DROPS Multivitamin (One-Daily Multi-Vitamin) 1 Each Tablet 1 EACH PO DAILY, TAB Oxybutynin Chloride (Oxybutynin Chloride) 5 Mg Tablet 5 MG PO BID, TAB Pumpkin Seed Extract/Soy Germ (Azo Bladder Control Capsule) 300 Mg Capsule 300 MG PO HS, CAP Timolol Maleate (Timolol Maleate 0.5%) 5 Ml Drops 1 DROP OU DAILY, DROPS Discontinued Medications: Aspirin (Aspirin) 81 Mg Tab.chew 81 MG PO DAILY, TAB Carvedilol (Carvedilol) 3.125 Mg Tablet 3.125 MG PO 999,1999, TAB Diltiazem HCl (Diltiazem 24Hr ER) 120 Mg Cap.er.24h 120 MG PO DAILY, CAP Furosemide (Furosemide) 40 Mg Tablet 40 MG PO DAILY, TAB LAST FILLED 11-06-2019 #90/90 DAY SUPPLY Kelvin/Polymyx B Sulf/Dexameth (Zjosph-Zbjtg-Ejzsvhk Eye Ointm) 3.5 Gm Oint...g. 1 APPLIC OP TID PRN for STYE, EACH Potassium Gluconate (Potassium) 99 Mg Tablet 99 MG PO DAILY, TAB Rivaroxaban (Xarelto) 20 Mg Tablet 20 MG PO DAILY, TAB Diamante Head Aug 21, 2020 05:43 DIAMANTE HEAD DO Aug 21, 2020 05:44
--- NOTE | 2020-08-21 05:44 | Discharge Summary ---
Diagnosis/Chief Complaint Date of Admission Aug 06, 2020 at 10:30 Date of Discharge Discharge Date: Aug 21, 2020 Discharge Diagnosis Assessment: COPD myopathy Acute on chronic respiratory failure Chronic O2 dependence Debility following PNA and UTI PHTN Edema chronic Chronic right foot drop uses AFO Edema chronic HTN OAB Plan: Monitor BP OAC Appreciate Cardiology IRF protocol 08/07/20: Monitor closely Abx Pain management O2 08/08/20: Monitor closely BP management O2 maintained 08/09/20: Monitor dyspnea O2 Monitor for falls 08/10/20: Monitor BP Appreciate Dr Brower 08/11/20: Monitor O2 Monitor wbc 08/12/20: Monitor O2 Monitor for falls 08/13/20: Monitor closely Monitor wbc 08/14/20: Monitor O2 Decrease steroids 08/15/20: Monitor for falls Decreased Prednisone 08/16/20: Monitor closely Fall risk 08/17/20: Monitor dyspnea closely Lasix maintained O2 08/18/20: Monitor closely O2 08/19/20: Needs NH at DC Monitor O2 08/20/20: O2 NHP tomorrow (1) Myopathy (2) COPD (chronic obstructive pulmonary disease) (3) Afib Status: Acute (4) HLD (hyperlipidemia) Status: Chronic (5) HTN (hypertension) Status: Chronic (6) Obesity Status: Chronic (7) Acute on chronic respiratory failure with hypoxia Status: Acute (8) PNA (pneumonia) Status: Acute (9) Foot drop, right (10) Essential (primary) hypertension (11) Edema (12) Lower lobe pneumonia Status: Acute (13) Oxygen dependent (14) Overactive bladder (15) Glaucoma (16) Debility (17) Hypoxemia Discharge Summary Discharge Physical Examination Allergies: Coded Allergies: Sulfa (Sulfonamide Antibiotics) (Verified Allergy, Intermediate, Rash, 07/02/19) acetaminophen (Verified Allergy, Intermediate, Rash, 07/02/19) Vitals & I&Os Vital Signs Date Time Temp Pulse Resp B/P (MAP) Pulse Ox O2 Delivery O2 Flow Rate FiO2 08/21/20 13:44 36.8 68 20 135/62 96 High Flow N/C 3.00 General Appearance: Alert, Oriented X3, Cooperative Respiratory: Clear to Auscultation Cardiovascular: Regular Rate Neuro: Normal Gait, Normal Speech, Strength at 5/5 X4 Ext Psych/Mental Status: Mental Status NL Hospital Course Was the Problem List Reviewed?: Yes Hospital Course: Pt had an uneventful hospital course for 16 days in rehab when she was able to participate in all therapies. Oxygen was maintained, cardiology and pulmonology both managed the patient in her complex medicate issues during her hospital stay. BP was much better when she was ready for DC to [facility] in [place] with Dr. Cruz Office. Labs (last 24 hrs) Laboratory Tests 08/07/20 05:26: White Blood Count 13.7H, Red Blood Count 3.54L, Hemoglobin 10.3L, Hematocrit 32L , Mean Corpuscular Volume 90, Mean Corpuscular Hemoglobin 29, Mean Corpuscular Hemoglobin Concent 32, Red Cell Distribution Width 13.2, Platelet Count 394, Mean Platelet Volume 9.5, Immature Granulocyte % (Auto) 3, Neutrophils (%) (Auto) 77H, Lymphocytes (%) (Auto) 10L, Monocytes (%) (Auto) 9, Eosinophils (%) (Auto) 0, Basophils (%) (Auto) 0, Neutrophils # (Auto) 10.5H, Lymphocytes # (Auto) 1.3, Monocytes # (Auto) 1.3H, Eosinophils # (Auto) 0.1, Basophils # (Auto) 0.1, Immature Granulocyte # (Auto) 0.5H, Sodium Level 137, Potassium Level 3.7, Chloride Level 102, Carbon Dioxide Level 24, Anion Gap 11, Blood Urea Nitrogen 32H, Creatinine 1.20, Estimat Glomerular Filtration Rate 42, BUN/Creatinine Ratio 27, Glucose Level 97, Calcium Level 7.9L, Corrected Calcium 8.7, Total Bilirubin 0.5, Aspartate Amino Transf (AST/SGOT) 32, Alanine Aminotransferase (ALT/SGPT) 48, Alkaline Phosphatase 74, Total Protein 5.9L, Albumin 3.0L 08/11/20 05:45: White Blood Count 17.5H, Red Blood Count 3.93, Hemoglobin 11.4L, Hematocrit 36, Mean Corpuscular Volume 90, Mean Corpuscular Hemoglobin 29, Mean Corpuscular Hemoglobin Concent 32, Red Cell Distribution Width 13.8, Platelet Count 400, Mean Platelet Volume 8.8L, Immature Granulocyte % (Auto) 6, Neutrophils (%) (Auto) 72, Lymphocytes (%) (Auto) 13, Monocytes (%) (Auto) 8, Eosinophils (%) (Auto) 1, Basophils (%) (Auto) 1, Neutrophils # (Auto) 12.6H, Lymphocytes # (Auto) 2.2, Monocytes # (Auto) 1.4H, Eosinophils # (Auto) 0.2, Basophils # (Auto) 0.1, Immature Granulocyte # (Auto) 1.0H, Sodium Level 138, Potassium Level 4.0, Chloride Level 101, Carbon Dioxide Level 26, Anion Gap 11, Blood Urea Nitrogen 23H, Creatinine 0.84, Estimat Glomerular Filtration Rate > 60, BUN/Creatinine Ratio 27, Glucose Level 86, Calcium Level 8.6, Corrected Calcium 9.1, Total Bilirubin 0.7, Aspartate Amino Transf (AST/SGOT) 16, Alanine Aminotransferase (ALT/SGPT) 34, Alkaline Phosphatase 80, Total Protein 6.5, Albumin 3.4, Neutrophils % (Manual) 68, Lymphocytes % (Manual) 21, Monocytes % (Manual) 5, Eosinophils % (Manual) 1, Band Neutrophils 5, Blood Morphology Comment NORMAL, Magnesium Level 2.6H, Procalcitonin 0.02 08/11/20 07:19: Lactic Acid Level 1.20 08/14/20 05:20: White Blood Count 19.0H, Red Blood Count 3.86, Hemoglobin 11.2L, Hematocrit 35, Mean Corpuscular Volume 91, Mean Corpuscular Hemoglobin 29, Mean Corpuscular H emoglobin Concent 32, Red Cell Distribution Width 14.3, Platelet Count 344, Mean Platelet Volume 9.4, Immature Granulocyte % (Auto) 5, Neutrophils (%) (Auto) 78H , Lymphocytes (%) (Auto) 10L, Monocytes (%) (Auto) 7, Eosinophils (%) (Auto) 0, Basophils (%) (Auto) 0, Neutrophils # (Auto) 14.8H, Lymphocytes # (Auto) 1.9, Monocytes # (Auto) 1.3H, Eosinophils # (Auto) 0.1, Basophils # (Auto) 0.1, Immature Granulocyte # (Auto) 0.9H, Sodium Level 135, Potassium Level 4.2, Chloride Level 99, Carbon Dioxide Level 27, Anion Gap 9, Blood Urea Nitrogen 26H , Creatinine 0.93, Estimat Glomerular Filtration Rate 57, BUN/Creatinine Ratio 28, Glucose Level 105, Calcium Level 8.6, Corrected Calcium 9.2, Total Bilirubin 0.6, Aspartate Amino Transf (AST/SGOT) 18, Alanine Aminotransferase (ALT/SGPT) 30, Alkaline Phosphatase 74, Total Protein 6.2L, Albumin 3.2 08/18/20 05:58: White Blood Count 13.4H, Red Blood Count 3.44L, Hemoglobin 10.2L, Hematocrit 32L , Mean Corpuscular Volume 92, Mean Corpuscular Hemoglobin 30, Mean Corpuscular Hemoglobin Concent 32, Red Cell Distribution Width 14.7H, Platelet Count 275, Mean Platelet Volume 9.7, Immature Granulocyte % (Auto) 3, Neutrophils (%) (Auto) 75, Lymphocytes (%) (Auto) 12, Monocytes (%) (Auto) 9, Eosinophils (%) (Auto) 2, Basophils (%) (Auto) 0, Neutrophils # (Auto) 10.0H, Lymphocytes # (Auto) 1.6, Monocytes # (Auto) 1.1H, Eosinophils # (Auto) 0.2, Basophils # (Auto) 0.1, Immature Granulocyte # (Auto) 0.4H, Sodium Level 138, Potassium Level 3.7, Chloride Level 103, Carbon Dioxide Level 27, Anion Gap 8, Blood Urea Nitrogen 21H, Creatinine 0.83, Estimat Glomerular Filtration Rate > 60, BUN/Creatinine Ratio 25, Glucose Level 94, Calcium Level 8.1L, Corrected Calcium 8.9, Total Bilirubin 0.6, Aspartate Amino Transf (AST/SGOT) 13, Alanine Aminotransferase (ALT/SGPT) 25, Alkaline Phosphatase 59, B-Type Natriuretic Peptide 98.7, Total Protein 5.5L, Albumin 3.0L 08/20/20 15:25: Coronavirus 2019 (MICHELL) Negative Pending Labs Laboratory Tests 08/07/20 05:26: White Blood Count 13.7, Red Blood Count 3.54, Hemoglobin 10.3, Hematocrit 32, Mean Corpuscular Volume 90, Mean Corpuscular Hemoglobin 29, Mean Corpuscular Hemoglobin Concent 32, Red Cell Distribution Width 13.2, Platelet Count 394, Mean Platelet Volume 9.5, Immature Granulocyte % (Auto) 3, Neutrophils (%) (Auto) 77, Lymphocytes (%) (Auto) 10, Monocytes (%) (Auto) 9, Eosinophils (%) (Auto) 0, Basophils (%) (Auto) 0, Neutrophils # (Auto) 10.5, Lymphocytes # (Auto) 1.3, Monocytes # (Auto) 1.3, Eosinophils # (Auto) 0.1, Basophils # (Auto) 0.1, Immature Granulocyte # (Auto) 0.5, Sodium Level 137, Potassium Level 3.7, Chloride Level 102, Carbon Dioxide Level 24, Anion Gap 11, Blood Urea Nitrogen 32, Creatinine 1.20, Estimat Glomerular Filtration Rate 42, BUN/Creatinine Ratio 27, Glucose Level 97, Calcium Level 7.9, Corrected Calcium 8.7, Total Bilirubin 0.5, Aspartate Amino Transf (AST/SGOT) 32, Alanine Aminotransferase (ALT/SGPT) 48, Alkaline Phosphatase 74, Total Protein 5.9, Albumin 3.0 08/11/20 05:45: White Blood Count 17.5, Red Blood Count 3.93, Hemoglobin 11.4, Hematocrit 36, Mean Corpuscular Volume 90, Mean Corpuscular Hemoglobin 29, Mean Corpuscular Hemoglobin Concent 32, Red Cell Distribution Width 13.8, Platelet Count 400, Mean Platelet Volume 8.8, Immature Granulocyte % (Auto) 6, Neutrophils (%) (Auto) 72, Lymphocytes (%) (Auto) 13, Monocytes (%) (Auto) 8, Eosinophils (%) (Auto) 1, Basophils (%) (Auto) 1, Neutrophils # (Auto) 12.6, Lymphocytes # (Auto) 2.2, Monocytes # (Auto) 1.4, Eosinophils # (Auto) 0.2, Basophils # (Auto) 0.1, Immature Granulocyte # (Auto) 1.0, Sodium Level 138, Potassium Level 4.0, Chloride Level 101, Carbon Dioxide Level 26, Anion Gap 11, Blood Urea Nitrogen 23, Creatinine 0.84, Estimat Glomerular Filtration Rate > 60, BUN/Creatinine Ratio 27, Glucose Level 86, Calcium Level 8.6, Corrected Calcium 9.1, Total Bilirubin 0.7, Aspartate Amino Transf (AST/SGOT) 16, Alanine Aminotransferase (ALT/SGPT) 34, Alkaline Phosphatase 80, Total Protein 6.5, Albumin 3.4, Neutrophils % (Manual) 68, Lymphocytes % (Manual) 21, Monocytes % (Manual) 5, Eosinophils % (Manual) 1, Band Neutrophils 5, Blood Morphology Comment NORMAL, Magnesium Level 2.6, Procalcitonin 0.02 08/11/20 07:19: Lactic Acid Level 1.20 08/14/20 05:20: White Blood Count 19.0, Red Blood Count 3.86, Hemoglobin 11.2, Hematocrit 35, Mean Corpuscular Volume 91, Mean Corpuscular Hemoglobin 29, Mean Corpuscular Hemoglobin Concent 32, Red Cell Distribution Width 14.3, Platelet Count 344, Mean Platelet Volume 9.4, Immature Granulocyte % (Auto) 5, Neutrophils (%) (Auto) 78, Lymphocytes (%) (Auto) 10, Monocytes (%) (Auto) 7, Eosinophils (%) (Auto) 0, Basophils (%) (Auto) 0, Neutrophils # (Auto) 14.8, Lymphocytes # (Auto) 1.9, Monocytes # (Auto) 1.3, Eosinophils # (Auto) 0.1, Basophils # (Auto) 0.1, Immature Granulocyte # (Auto) 0.9, Sodium Level 135, Potassium Level 4.2, Chloride Level 99, Carbon Dioxide Level 27, Anion Gap 9, Blood Urea Nitrogen 26, Creatinine 0.93, Estimat Glomerular Filtration Rate 57, BUN/Creatinine Ratio 28, Glucose Level 105, Calcium Level 8.6, Corrected Calcium 9.2, Total Bilirubin 0.6, Aspartate Amino Transf (AST/SGOT) 18, Alanine Aminotransferase (ALT/SGPT) 30, Alkaline Phosphatase 74, Total Protein 6.2, Albumin 3.2 08/18/20 05:58: White Blood Count 13.4, Red Blood Count 3.44, Hemoglobin 10.2, Hematocrit 32, Mean Corpuscular Volume 92, Mean Corpuscular Hemoglobin 30, Mean Corpuscular Hemoglobin Concent 32, Red Cell Distribution Width 14.7, Platelet Count 275, Mean Platelet Volume 9.7, Immature Granulocyte % (Auto) 3, Neutrophils (%) (Auto) 75, Lymphocytes (%) (Auto) 12, Monocytes (%) (Auto) 9, Eosinophils (%) (Auto) 2, Basophils (%) (Auto) 0, Neutrophils # (Auto) 10.0, Lymphocytes # ( Auto) 1.6, Monocytes # (Auto) 1.1, Eosinophils # (Auto) 0.2, Basophils # (Auto) 0.1, Immature Granulocyte # (Auto) 0.4, Sodium Level 138, Potassium Level 3.7, Chloride Level 103, Carbon Dioxide Level 27, Anion Gap 8, Blood Urea Nitrogen 21, Creatinine 0.83, Estimat Glomerular Filtration Rate > 60, BUN/Creatinine Ratio 25, Glucose Level 94, Calcium Level 8.1, Corrected Calcium 8.9, Total Bilirubin 0.6, Aspartate Amino Transf (AST/SGOT) 13, Alanine Aminotransferase (ALT/SGPT) 25, Alkaline Phosphatase 59, B-Type Natriuretic Peptide 98.7, Total Protein 5.5, Albumin 3.0 08/20/20 15:25: Coronavirus 2019 (MICHELL) Negative Discharge Home Medications: Active Scripts Active Prednisone 10 Mg Tab.ds.pk 10 Mg PO DAILY 7 Days 20 mg po daily for 3 days then 10 mg po daily for 4 days then DC Dok (Docusate Sodium) 100 Mg Capsule 100 Mg PO BID PRN 30 Days Fluticasone-Salmeterol 113-14 (Fluticasone/Salmeterol) 1 Each Aer.pow.ba 0 Each IH RTBID 30 Days Furosemide 40 Mg Tablet 40 Mg PO DAILY 30 Days Klor-Con M20 (Potassium Chloride) 20 Meq Tab.er.prt 20 Meq PO DAILY@0700 30 Days Diltiazem 24Hr ER (Diltiazem HCl) 240 Mg Cap.er.24h 240 Mg PO DAILY 30 Days Amlodipine Besylate 10 Mg Tablet 10 Mg PO DAILY 30 Days Carvedilol 12.5 Mg Tablet 12.5 Mg PO BID WITH MEALS 30 Days Xarelto Tablet (Rivaroxaban) 15 Mg Tablet 15 Mg PO DAILY@0800 30 Days Ventolin Hfa (Albuterol Sulfate) 18 Gm Hfa.aer.ad 0 Gm IH RTTID 30 Days Incruse Ellipta (Umeclidinium [place]) 62.5 Mcg Blst.w.dev 0 Inh IH DAILY@0800 30 Days Reported Estrace Tablet (Estradiol) 0.5 Mg Tablet 0.5 Mg PO MON,THUR Hydralazine HCl 50 Mg Tablet 50 Mg PO TID Timolol Maleate 0.5% (Timolol Maleate) 5 Ml Drops 1 Drop OU DAILY Latanoprost 0.005% Eye Drop (Latanoprost/Pf) 7.5 Ml Drops 1 Drop OU HS Azo Bladder Control Capsule (Pumpkin Seed Extract/Soy Germ) 300 Mg Capsule 300 Mg PO HS Cranberry (Cranberry Fruit) 400 Mg Tablet 800 Mg PO HS TAKES 2 (400MG) TABLETS One-Daily Multi-Vitamin (Multivitamin) 1 Each Tablet 1 Each PO DAILY Oxybutynin Chloride 5 Mg Tablet 5 Mg PO BID Calcium 600 + Vit D Caplet (Calcium Carbonate/Vitamin D3) 1 Each Tablet 2 Each PO DAILY Instructions to patient/family Please see electronic discharge instructions given to patient. Diagnosis/Problems Diagnosis/Problems (1) Myopathy (2) COPD (chronic obstructive pulmonary disease) (3) Afib Status: Acute (4) HLD (hyperlipidemia) Status: Chronic (5) HTN (hypertension) Status: Chronic (6) Obesity Status: Chronic (7) Acute on chronic respiratory failure with hypoxia Status: Acute (8) PNA (pneumonia) Status: Acute (9) Foot drop, right (10) Essential (primary) hypertension (11) Edema (12) Lower lobe pneumonia Status: Acute (13) Oxygen dependent (14) Overactive bladder (15) Glaucoma (16) Debility (17) Hypoxemia RIKA BERUMEN DO Aug 21, 2020 05:44
--- NOTE | 2020-08-21 06:13 | Pulmonary Progress Note ---
Subjective Time Seen by a Provider: 06:11 Sepsis Event Evaluation Height, Weight, BMI Height: '" Weight: lbs. oz. kg; 41.54 BMI Method: Exam Exam Vital Signs Date Time Temp Pulse Resp B/P (MAP) Pulse Ox O2 Delivery O2 Flow Rate FiO2 08/21/20 05:01 36.8 68 20 135/62 (86) 96 High Flow N/C 3.00 08/20/20 20:00 Nasal Cannula 3.00 08/20/20 18:39 97 Nasal Cannula 3.00 08/20/20 17:36 36.7 65 20 140/69 (92) 96 High Flow N/C 3.00 08/20/20 15:00 95 Nasal Cannula 3.00 08/20/20 08:00 Nasal Cannula 3.00 08/20/20 07:58 142/65 (90) 08/20/20 06:38 36.7 70 20 138/65 (89) 94 08/20/20 06:29 96 Nasal Cannula 3.00 I & O 08/21/20 07:00 Intake Total 2000 ml Balance 2000 ml Height & Weight Height: '" Weight: lbs. oz. kg; 41.54 BMI Method: General Appearance: No Apparent Distress, WD/WN, Chronically ill, Obese HEENT: PERRL/EOMI, Normal ENT Inspection, Pharynx Normal Neck: Full Range of Motion, Normal Inspection, Non Tender, Supple, Carotid Bruit Respiratory: Chest Non Tender, Lungs Clear, No Accessory Muscle Use, No Respiratory Distress, Decreased Breath Sounds Cardiovascular: No Edema, No Gallop, No JVD, No Murmur, Normal Peripheral Pulses, Irregularly Irregular Extremity: Normal Capillary Refill, Normal Inspection, Normal Range of Motion, Non Tender, No Calf Tenderness, No Pedal Edema Neurologic/Psychiatric: Alert, Oriented x3, No Motor/Sensory Deficits, Normal Mood/Affect, Abnormal Gait, Motor Weakness Skin: Normal Color, Warm/Dry Lymphatic: No Adenopathy Assessment/Plan Assessment/Plan chronic respiratory failure with oxygen dependent COPD -Oxygen -Albuterol MDI - increase to TID -Add Advair and spiriva Leukocytosis- probably secondary to Prednisone -PCT is negative Diastolic CHF with pulmonary HTN -Will do out pt PFT and PSG -Echo: -aortic valve sclerosis, with mild regurgitation -moderate tricuspid regurgitation -Mod enlargement of left atrium Debility -PT/OT COPD -Oxygen -Nebulizer CKD JEANNE ROMAN DO Aug 21, 2020 06:13
[2020-08-21] MEDS: predniSONE 20 MG TAB PO SCH (06:33)
[2020-08-21] MEDS: KCL 20 MEQ TAB (K-DUR) PO SCH (06:33)
[2020-08-21] MEDS: FLUTICASONE/SALMETEROL 113-14 (AIRDUO RespiCLICK) IH SCH (07:47)
[2020-08-21] MEDS: UMECLIDINIUM BROMIDE (INCRUSE ELLIPTA) 7'S IH SCH (07:47)
[2020-08-21] MEDS: RT-ALBUTEROL INHALER HFA (VENTOLIN HFA) 18 GM IH SCH (07:48)
[2020-08-21] MEDS: FUROSEMIDE 40 MG (LASIX) TAB PO SCH (08:24)
[2020-08-21] MEDS: SENNA W/DOCUSATE (SENOKOT S) TABLET PO SCH (08:25)
[2020-08-21] MEDS: RIVAROXABAN 15 MG TABLET (XARELTO) PO SCH (08:25)
[2020-08-21] MEDS: CARVEDILOL 12.5 MG (COREG) TABLET PO SCH (08:25)
[2020-08-21] MEDS: DOCUSATE SODIUM 100 MG (COLACE) CAP PO SCH (08:25)
[2020-08-21] MEDS: polyethylene glycoL POWDER 17 GM (MIRALAX) PACK PO SCH (08:25)
[2020-08-21] MEDS: amLODIPine 10 MG (NORVASC) TAB PO SCH (08:25)
[2020-08-21] MEDS: TIMOLOL MALEATE 0.5% 5 ML (TIMOPTIC) BTL OU SCH (08:26)
--- NOTE | 2020-08-21 08:44 | Cardiology Progress Note ---
Subjective Date Seen by Provider: Aug 21, 2020 Time Seen by Provider: 08:42 Subjective/Events-last exam Patient sitting up in bed, no new complaints. Review of Systems General: No Chills, No Night Sweats; Fatigue, Malaise; No Appetite, No Other HEENT: No Head Aches, No Visual Changes, No Eye Pain, No Ear Pain, No Dysphasia, No Sinus Congestion, No Post Nasal Drip, No Sore Throat, No Other Pulmonary: No Dyspnea, No Cough, No Pleuritic Chest Pain, No Other Cardiovascular: No: Chest Pain, Palpitations, Orthopnea, Paroxysmal Noc. Dyspnea, Edema, Lt Headedness, Other Objective-Cardiology Exam Last Set of Vital Signs Vital Signs 08/21/20 08/21/20 05:01 09:51 Temp 36.8 Pulse 68 Resp 20 B/P (MAP) 135/62 (86) Pulse Ox 96 O2 Delivery Nasal Cannula O2 Flow Rate 3.00 Capillary Refill : I&O Intake and Output 08/21/20 00:00 Intake Total 2850 ml Balance 2850 ml Intake Oral 2850 ml # Voids 10 # Bowel Movements 1 General: Alert, Oriented X3, Cooperative, No Acute Distress HEENT: Atraumatic, PERRLA Neck: Supple, No JVD, No Thyromegaly Lungs: Other (bilateral crackles, right worse than left, mildly increased work of breathing) Heart: Regular Rate, Normal S1, Normal S2, No Murmurs Extremities: No Clubbing, No Cyanosis, No Edema, Normal Pulses, Other (bilateral non-pitting LE edema, right worse than left, unchanged from yesterday) Skin: No Rashes, No Breakdown, No Significant Lesion Neuro: Normal Gait, Normal Speech, Normal Tone Psych/Mental Status: Mental Status NL, Mood NL A/P-Cardiology Admission Diagnosis HTN CHF Dyspnea Assessment/Plan Hypertension, controlled, continue to monitor. Status post acute resp insuff due to pneumonia, managed by primary care team. CXR today shows increased heart size, probable pulmonary edema vs pneumonia, still having some shortness of breath, receiving Lasix. Continue to monitor COPD, on 3 L NC, managed by Dr. Montiel Acute diastolic CHF, currently clinically compensated. Echocardiogram done on August 04, 2020 showing normal left ventricular systolic function, ejection fraction 60 percent, mild mitral regurgitation, mild aortic stenosis, pulmonary artery pressure of 40-45 mmHg. Currently maintained on Lasix Chronic, bilateral leg edema, likely due to venous insufficiency. Sinus node dysfunction, history of permanent pacemaker, alternating between sinus rhythm and atrial paced rhythm. Paroxysmal atrial fibrillation, on rivaroxaban CKD-3, clinically stable. Continue to monitor Hyperlipidemia Patient was seen and evaluated with Jillian, examination performed, management plan was discussed, agree with the current scribed note, I made few changes to the note using Italic font Patient was seen at bedside sitting comfortably, being transferred to correction today. Feeling better, continue current medication monitor, no changes are recommended JILLIAN BEST Aug 21, 2020 08:44 CRUZ DANIELS MD Aug 21, 2020 13:12
[2020-08-21 13:44] VITALS: BP 135/62
--- NOTE | 2020-08-21 14:38 | Therapy Team Discharge Summary ---
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 Upon evaluation, patient was max assist x1 for toilet and sit <-> stand transfers, and Min A x1 for all other transfers, able to walk 10 ft x 3 and 50 ft x 1 with FWW with min assist for balance, and was unable to walk distance of 150'. Patient required min assist for 1 curb step. Patient was able to reach all short-term goals, and was able to meet nursing home goals of being able to navigate 4 steps and walk on uneven surfaces with SBA. 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 Patient was discharged from this facility today and will be discharged from PT at this time. Occupational Therapy Decreased Activ Tolerance, Decreased UE Strength, Edema, Impaired Funct Balance, Impaired I ADL's, Impaired Self-Care Skills PT Retirement Goals Retirement Goals PT Retirement Goals Time Frame: Aug 27, 2020 Roll Left to Right (QC): 6 Sit to Lying (QC): 6 Lying-Sitting on Side/Bed(QC): 6 Sit to Stand (QC): 6 Chair/Vbg-ap-Kkgzh Xfer(QC): 6 Car Transfer (QC): 5 Does the Patient Walk: Yes Walk 10 feet (QC): 6 Walk 10ft-Uneven Surface(QC): 4 Walk 50ft with 2 Turns (QC): 6 Walk 150 ft (QC): 6 Wheel 50 feet with 2 turns (QC: 9 1 Step (curb) (QC): 4 4 Steps (QC): 4 12 Steps (QC): 9 Picking up an Object (QC): 9 OT Retirement Goals Retirement Goals Time Frame: Aug 29, 2020 Eating (QC): 6 Oral Hygiene (QC): 6 Shower/Bathe Self (QC): 4 Upper Body Dressing (QC): 6 Lower Body Dressing (QC): 6 On/Off Footwear (QC): 6 Toileting Hygiene (QC): 6 Toilet/Commode Transfer (QC): 6 Additional Goals: 1-Demonstrate ADL Tasks, 2-Verbalize Understanding, 3-ImproveStrength/Chrissy 1=Demonstrate adherence to instructed precautions during ADL tasks. 2=Patient will verbalize/demonstrate understanding of assistive devices/modifications for ADL. 3=Patient will improve strength/tolerance for activity to enable patient to perform ADL's. JULIA PLEITEZ PT Aug 21, 2020 14:38
--- NOTE | 2020-08-22 14:30 | Therapy Team Discharge Summary ---
Therapy Discharge Summary Discharge Recommendations Date of Discharge Aug 21, 2020 at 13:48 Occupational Therapy Pt admits with COPD myopathy from home, where pt was living alone but received assist with tub transfers, washing in shower with min A, laundry, footwear/ wrapping LEs daily, and meal prep. Upon admission, pt requires s/u with eating/ oral care, min-mod A showering, UB dressing, LB dressing, max A toilet hygiene, and TD with footwear (PLOF). Pt and OT staff work towards higher functional IND and safety within the home with the following interventions: ADL training, safety education, functional activities, functional activity tolerance, UE exercises, AE education, etc. Pt d/c's with ability to complete eating with IND, UB dressing s/u, LB dressing and toilet hygiene with SBA-SUP level, and showering with min A. Based on pt's presentation and communication with staff, pt at [facility] for ADLs upon d/c. Recommendation of d/c with no continued OT needed. D/c OT at this time. Decreased Activ Tolerance, Decreased UE Strength, Edema, Impaired Funct Balance, Impaired I ADL's, Impaired Self-Care Skills PT Fpc Goals Fpc Goals PT Fpc Goals Time Frame: Aug 27, 2020 Roll Left to Right (QC): 6 Sit to Lying (QC): 6 Lying-Sitting on Side/Bed(QC): 6 Sit to Stand (QC): 6 Chair/Oys-co-Ceupv Xfer(QC): 6 Car Transfer (QC): 5 Does the Patient Walk: Yes Walk 10 feet (QC): 6 Walk 10ft-Uneven Surface(QC): 4 Walk 50ft with 2 Turns (QC): 6 Walk 150 ft (QC): 6 Wheel 50 feet with 2 turns (QC: 9 1 Step (curb) (QC): 4 4 Steps (QC): 4 12 Steps (QC): 9 Picking up an Object (QC): 9 OT Family Practice Physician Assistant Goals Family Practice Physician Assistant Goals Time Frame: Aug 29, 2020 Eating (QC): 6 Oral Hygiene (QC): 6 Shower/Bathe Self (QC): 4 Upper Body Dressing (QC): 6 Lower Body Dressing (QC): 6 On/Off Footwear (QC): 6 Toileting Hygiene (QC): 6 Toilet/Commode Transfer (QC): 6 Additional Goals: 1-Demonstrate ADL Tasks, 2-Verbalize Understanding, 3- ImproveStrength/Chrissy 1=Demonstrate adherence to instructed precautions during ADL tasks. 2=Patient will verbalize/demonstrate understanding of assistive devices/modifications for ADL. 3=Patient will improve strength/tolerance for activity to enable patient to perform ADL's. KODI LEO OTR Aug 22, 2020 14:30
== END 2020-08-21 13:48 | DRG 92 ==
PROVIDERS: ADMIT Internal Medicine; ATTEND Internal Medicine
DX: G72.89 Other specified myopathies (principal); I13.0 Hypertensive heart and chronic kidney disease with heart failure and stage 1 through stage 4 chronic kidney disease, or unspecified chronic kidney disease; I50.32 Chronic diastolic (congestive) heart failure; J96.10 Chronic respiratory failure, unspecified whether with hypoxia or hypercapnia; J44.9 Chronic obstructive pulmonary disease, unspecified; I48.0 Paroxysmal atrial fibrillation; N18.30 Chronic kidney disease, stage 3 unspecified; Z66 Do not resuscitate; Z20.822 Contact with and (suspected) exposure to COVID-19; M21.371 Foot drop, right foot; I08.0 Rheumatic disorders of both mitral and aortic valves; I27.20 Pulmonary hypertension, unspecified; I49.5 Sick sinus syndrome; I87.2 Venous insufficiency (chronic) (peripheral); G62.9 Polyneuropathy, unspecified; N32.81 Overactive bladder; K59.00 Constipation, unspecified; D72.828 Other elevated white blood cell count; E78.00 Pure hypercholesterolemia, unspecified; E78.5 Hyperlipidemia, unspecified; M19.91 Primary osteoarthritis, unspecified site; H40.9 Unspecified glaucoma; T38.0X5A Adverse effect of glucocorticoids and synthetic analogues, initial encounter; Z99.81 Dependence on supplemental oxygen; Z79.82 Long term (current) use of aspirin; Z88.6 Allergy status to analgesic agent; Z88.2 Allergy status to sulfonamides; Z82.5 Family history of asthma and other chronic lower respiratory diseases; Z82.49 Family history of ischemic heart disease and other diseases of the circulatory system
CPT/HCPCS: 36415; 71045; 71046; 80053; 83605; 83735; 83880; 84145; 85007; 85025; 85027; 87635; 94640; 94664; 94760